=== PATIENT | female | born 1950 | race Caucasian/White ===

== ENCOUNTER → 2016-08-08 | Outpatient (CLI) | payer MEDICARE ==
[2014-11-06 00:59] VITALS: BP 187/79
[~2016-08-08] MED LIST: ACLI400A2 IH; AMLO5TAB2 PO; ARFO15VI IH; CANA300T PO; CHOL400C PO; CHOL400T2 PO; DULA0.75 SQ; FLUT12AE2 IH; FLUT50DI IH; GLIM2TAB2 PO; HALO5TAB PO; LEVO125T5 PO; LEVO88TA2 PO; LIPITOR80 MG PO; LISI10TA2 PO; MELO-150 PO; METF500T4 PO; METO10TA PO; Metoprolol Tartrate PO; OMEP10CA PO; OXYB5TAB7 PO; ROPI0.5T PO; VALA1000 PO; VITA1000 PO
--- NOTE | 2016-08-08 14:00 | KCIC ---
PQRS STATEMENT One or more of the following individualized dose reduction techniques were utilized for this study: 1.Automated exposure control. 2.Adjustment of the mA and/orkVaccording to patient size. 3.Use of iterative reconstruction technique CT ABDOMEN/PELVIS Indication:Reason For Study Reason: RLQ PAIN A FEW MONTHS / Spl. Instructions: / History: Hx hernias, Rt kidney stone, hematuria Technique: Multiple contiguous axial images were obtained through the abdomen and pelvis. Coronal reformations were created. Findings: The heart size is normal. Coronary artery calcifications are noted. The lung bases are clear. Evaluation of the abdominal viscera is limited in the absence of IV contrast.The liver is normal in size. The spleen is either small or partially surgically absent. The presumed splenic remnant measures 4.4 centimeters in size. The gallbladder is surgically absent. The pancreas, and adrenal glands are within normal limits. There is a nonobstructive left inferior pole renal calculus that measures 6 millimeters. There are low-density rounded masses in both kidneys which probably represent cysts. This measures 3.8 centimeters on the left and 3.9 centimeters on the right. There is no abdominopelvic ascites. Abdominal aorta is normal in caliber. The bowel loops are normal in caliber. The appendix is normal. Urinary bladder is within normal limits. No destructive osseus lesions are identified. Impression: - No abdominopelvic ascites or inflammatory mass. - Nonobstructive 6 millimeter calculus in the inferior pole of the left kidney. - Bilateral renal cysts. - The spleen is either atrophic or partially surgically resected. Electronically signed by: Guy Rock (Aug 08, 2016 13:59:40)
== END | disposition home or self-care (01) ==
LOC: KCIC CT 13:05
PROVIDERS: ATTEND Family Medicine
DX: R10.31 Right lower quadrant pain (principal); Z87.442 Personal history of urinary calculi; Z87.448 Personal history of other diseases of urinary system; Z87.19 Personal history of other diseases of the digestive system
CPT/HCPCS: 74176

== ENCOUNTER → 2016-12-01 | Outpatient (CLI) | payer BC, MEDICARE ==
[2014-11-06 00:59] VITALS: BP 187/79
[~2016-12-01] MED LIST changes: -MELO-150 PO; +MELO15TA23 PO
== END | disposition home or self-care (01) ==
LOC: KCIC MAMMO 12:48
PROVIDERS: ATTEND Family Medicine
DX: Z12.31 Encounter for screening mammogram for malignant neoplasm of breast (principal)
CPT/HCPCS: G0202; 77067

== ENCOUNTER 2017-03-09 12:31 | Inpatient (IN) | payer BC ==
[~2017-03-09] VITALS: Ht 167.6 cm; Wt 138.3 kg
[2017-03-09 13:42] LABS: BILIRUBIN,URINE NEGATIVE (NEG); GLUCOSE,URINE NEGATIVE (NEG); NITRITE,URINE NEGATIVE (NEG); PH,URINE 5.5; PROTEIN,URINE NEGATIVE (NEG-TRACE); UROBILINOGEN,URINE 0.2 mg/dL (0.2 mg/dL)
[2017-03-09 13:50] LABS: BACTERIA,URINE 0 /HPF (0-FEW); RBC,URINE TNTC /HPF (0-2); SQUAMOUS EPITHELIAL CELL,UR FEW /LPF; WBC,URINE 0 /HPF (0-4)
[2017-03-09] MEDS ORDERED: fentaNYL PF VIAL 100 MCG/2 ML VIAL IV ONE (14:00)
[2017-03-09] MEDS ORDERED: KETOROLAC 15 MG/ML VIAL. IV ONE (14:00)
[2017-03-09 14:48] LABS: BASO # 0.1 x10^3/uL (0.0-0.2); BASO % 1 % (0-3); EOS % 1 % (0-3); HEMATOCRIT 29.9 % (36.0-47.0); HEMOGLOBIN 9.7 g/dL (12.0-15.5); LYMPH # 1.8 x10^3/uL (1.0-4.8); LYMPH % 20 % (24-48); MEAN CORPUSCULAR HEMOGLOBIN 32 pg (25-35); MEAN CORPUSCULAR HGB CONC 33 g/dL (31-37); MEAN CORPUSCULAR VOLUME 99 fL (79-100); MONO % 13 % (0-9); NEUT % 65 % (31-73); PLATELET COUNT 366 x10^3/uL (140-400); RED BLOOD COUNT 3.02 x10^6/uL (3.50-5.40); RED CELL DISTRIBUTION WIDTH 15.5 % (11.5-14.5); WHITE BLOOD COUNT 9.3 x10^3/uL (4.0-11.0)
[2017-03-09 15:01] LABS: CALCIUM 9.1 mg/dL (8.5-10.1); CREATININE 1.3 mg/dL (0.6-1.0); POTASSIUM 4.5 mmol/L (3.5-5.1)
[2017-03-09 15:08] LABS: ALBUMIN 3.4 g/dL (3.4-5.0); ALBUMIN/GLOBULIN RATIO 0.9 (1.0-1.7); TOTAL BILIRUBIN 0.4 mg/dL (0.2-1.0)
[2017-03-09] MEDS ORDERED: MORPHINE SULFATE 4 MG/ML DISP.SYRIN. IV ONE (15:15)
--- NOTE | 2017-03-09 15:54 | PHYS DOC ---
Past Medical History Past Medical History: Asthma, COPD, Diabetes-Type II, GERD, High Cholesterol, Hypertension, Hypothyroid, Schizophrenia Past Surgical History: Cholecystectomy, Splenectomy, Tonsillectomy, Tubal ligation Additional Past Surgical Histo: Breast Augmentation Alcohol Use: None Drug Use: None Adult General Chief Complaint Chief Complaint: BACK PAIN OR INJURY HPI HPI Patient is a 66 year old female presents with right lower lumbar/sacroiliac pain radiating to right leg. Symptom onset was 5 days ago. Patient denies trauma or strain-like injury. Patient reports weakness of right leg with painful gait. Patient's been able to get around at home with use of cane. Denies numbness of leg. Denies urinary incontinence. Patient took prior to ED arrival with limited improvement. No other acute symptoms or complaints. Review of Systems Review of Systems ROS as per HPI. Current Medications Current Medications Current Medications Medications (Trade) Dose Ordered Sig/Tarah Start Time Stop Time Status Last Admin Dose Admin Fentanyl Citrate (Fentanyl 2ml Vial) 75 mcg 1X ONCE 03/09/17 14:00 03/09/17 14:01 DC 03/09/17 14:13 75 MCG Ketorolac Tromethamine (Toradol) 15 mg 1X ONCE 03/09/17 14:00 03/09/17 14:01 DC 03/09/17 14:13 15 MG Morphine Sulfate 2 mg 1X ONCE 03/09/17 17:15 03/09/17 17:16 DC 03/09/17 17:34 2 MG Allergies Allergies Allergies Coded Allergies Type Severity Reaction Last Updated Verified erythromycin base Allergy Intermediate Hives 11/19/13 No Penicillins Allergy Mild TIRED 11/19/13 Yes Physical Exam Physical Exam Constitutional: Well developed, well nourished, anxious, tearful secondary to pain.. [] HENT: Normocephalic, atraumatic, bilateral external ears normal, oropharynx moist, no oral exudates, nose normal. [] Eyes: PERRLA, EOMI, conjunctiva normal, no discharge. [] Neck: Normal range of motion, no tenderness, supple, no stridor. [] Cardiovascular:Heart rate regular rhythm, no murmur [] Lungs & Thorax: Bilateral breath sounds clear to auscultation [] Abdomen: Bowel sounds normal, soft, no tenderness,. [] Skin: Warm, dry, no erythema, no rash. [] Back: No tenderness, negative evaluation secondary to habitus, diffuse tenderness to right lower lumbar paravertebral region. Positive SLR on the right. [] Extremities: No tenderness, no cyanosis, no clubbing, ROM intact, no edema. [] Neurologic: Alert and oriented X 3, right extremity decreased plantar flexion and dorsiflexion, possibly secondary to pain versus deficit.[] Current Patient Data Vital Signs Vital Signs Date Time Temp Pulse Resp B/P (MAP) Pulse Ox O2 Delivery O2 Flow Rate FiO2 03/09/17 17:34 Nasal Cannula 2.0 03/09/17 12:45 97.8 75 22 112/53 (72) 98 97.8 Lab Values Laboratory Tests Test 03/09/17 13:35 03/09/17 14:35 Urine Collection Type U cath Urine Color Yellow Urine Clarity Clear Urine pH 5.5 Urine Specific [place] 1.015 Urine Protein Negative mg/dL (NEG-TRACE) Urine Glucose (UA) Negative mg/dL (NEG) Urine Ketones (Stick) Negative mg/dL (NEG) Urine Blood Large (NEG) Urine Nitrite Negative (NEG) Urine Bilirubin Negative (NEG) Urine Urobilinogen Dipstick 0.2 mg/dL (0.2 mg/dL) Urine Leukocyte Esterase Negative (NEG) Urine RBC Tntc /HPF (0-2) Urine WBC 0 /HPF (0-4) Urine Squamous Epithelial Cells Few /LPF Urine Bacteria 0 /HPF (0-FEW) Urine Hyaline Casts Many /HPF White Blood Count 9.3 x10^3/uL (4.0-11.0) Red Blood Count 3.02 x10^6/uL (3.50-5.40) L Hemoglobin 9.7 g/dL (12.0-15.5) L Hematocrit 29.9 % (36.0-47.0) L Mean Corpuscular Volume 99 fL (79-100) Mean Corpuscular Hemoglobin 32 pg (25-35) Mean Corpuscular Hemoglobin Concent 33 g/dL (31-37) Red Cell Distribution Width 15.5 % (11.5-14.5) H Platelet Count 366 x10^3/uL (140-400) Neutrophils (%) (Auto) 65 % (31-73) Lymphocytes (%) (Auto) 20 % (24-48) L Monocytes (%) (Auto) 13 % (0-9) H Eosinophils (%) (Auto) 1 % (0-3) Basophils (%) (Auto) 1 % (0-3) Neutrophils # (Auto) 6.1 x10^3uL (1.8-7.7) Lymphocytes # (Auto) 1.8 x10^3/uL (1.0-4.8) Monocytes # (Auto) 1.2 x10^3/uL (0.0-1.1) H Eosinophils # (Auto) 0.1 x10^3/uL (0.0-0.7) Basophils # (Auto) 0.1 x10^3/uL (0.0-0.2) Sodium Level 135 mmol/L (136-145) L Potassium Level 4.5 mmol/L (3.5-5.1) Chloride Level 101 mmol/L (98-107) Carbon Dioxide Level 28 mmol/L (21-32) Anion Gap 6 (6-14) Blood Urea Nitrogen 12 mg/dL (7-20) Creatinine 1.3 mg/dL (0.6-1.0) H Estimated GFR (Cockcroft-Gault) 41.0 BUN/Creatinine Ratio 9 (6-20) Glucose Level 93 mg/dL (70-99) Calcium Level 9.1 mg/dL (8.5-10.1) Total Bilirubin 0.4 mg/dL (0.2-1.0) Aspartate Amino Transferase (AST) 21 U/L (15-37) Alanine Aminotransferase (ALT) 27 U/L (14-59) Alkaline Phosphatase 123 U/L (46-116) H Total Protein 7.0 g/dL (6.4-8.2) Albumin 3.4 g/dL (3.4-5.0) Albumin/Globulin Ratio 0.9 (1.0-1.7) L Laboratory Tests 03/09/17 14:35 Laboratory Tests 03/09/17 14:35 EKG EKG [] Radiology/Procedures Radiology/Procedures [MRI lumbar spine: L4-L5 Disc herniation with protrusion resulting in foraminal stenosis and compression of L5 nerve root per radiology report] Course & Med Decision Making Course & Med Decision Making Pertinent Labs and Imaging studies reviewed. (See chart for details) [Intractable back pain with acute disc rupture and L5 compression. Dr. Burnham on- call for Dr. Meehan to admit. No surgical services consulted. ] Dragon Disclaimer Dragon Disclaimer This electronic medical record was generated, in whole or in part, using a voice recognition dictation system. Departure Departure Impression: Primary Impression: Intractable back pain Additional Impression: Acute herniated disc Disposition: 09 ADMITTED INPATIENT Admitting Physician: Lacho Burnham Condition: STABLE Referrals: Prosper MEEHAN MD (PCP) Problem Qualifiers ELICEO NELSON DO Mar 09, 2017 15:54
--- NOTE | 2017-03-09 17:00 | RAD ---
MRI of the lumbar spine without contrast 03/09/2017 CLINICAL HISTORY: Low back pain with right leg pain. TECHNIQUE: Unenhanced T1-weighted and T2-weighted sagittal and axial and inversion recovery sagittal images of the lumbar spine were obtained. FINDINGS: The patient appears to have transitional vertebral anatomy. For the purposes of this dictation 5 lumbar vertebrae have been assumed. The transitional vertebral segment will be referred to as S1. A hypoplastic disc is seen at S1-2. Very mild S-shaped curvature of the thoracolumbar spine is seen. Degenerative signal changes are seen involving the L2-3, L3-4, L4-5 and L5-S1 discs. Degenerative signal changes are seen within the marrow surrounding these discs. Loss of height of the L4-5 disc is noted. Mild anterolisthesis of L4 in relation to L5 is noted. The conus medullaris is normal morphology, position, and signal characteristics. A 4 cm rounded high signal intensity lesion is seen involving the superior aspect of the left kidney on the T2-weighted images. A 3.7 cm rounded high signal intensity lesion is seen involving the midpole the right kidney on the T2-weighted images. These likely represent cysts. At the L1-2, L2-3 and L3-4 disc spaces there are minimal to mild generalized disc bulges. Degenerative changes are seen involving the facet joints bilaterally. There is mild to moderate ligamentum flavum hypertrophy bilaterally. Prominence of the posterior epidural fat is seen. A 3 mm synovial cyst is seen projecting inferiorly from the right facet joint at L3-4. These findings when combined do not result in significant central spinal canal or neural foraminal stenosis. At the L4-5 disc space there is a mild to moderate generalized disc bulge. Superimposed on this disc bulge is a right paracentral focal disc herniation. This extrudes slightly superiorly. It measures 2.0 x 1.2 x 0.9 cm in craniocaudal, AP and transverse dimensions.. This results in severe right-sided central spinal canal stenosis and appears to impinge upon the right L5 nerve root within the right aspect of the central spinal canal. No neural foraminal stenosis is seen. At the L5-S1 disc space is a mild generalized disc bulge. Degenerative changes are seen involving the facet joints bilaterally. These findings do not result in significant central spinal canal or neural foraminal stenosis. IMPRESSION: The changes of degenerative disc disease are seen throughout the lumbar spine. At the L4-5 disc space a large right paracentral focal disc herniation is seen which extrudes slightly superiorly. It results in severe right-sided central spinal canal stenosis and appears to impinge upon the right L5 nerve root within the right lateral aspect of the central spinal canal as outlined above. Electronically signed by: Matt Garcia MD (03/09/2017 4:56 PM) [id number]
[2017-03-09] MEDS ORDERED: MORPHINE SULFATE 2 MG/ML DISP.SYRIN. IV ONE (17:15)
[2017-03-09] MEDS ORDERED: MORPHINE SULFATE 10 MG/ML VIAL. IV ONE (19:15)
[2017-03-09] MEDS ORDERED: PROAIR HFA8.5 GM INH (19:32)
[2017-03-09] MEDS ORDERED: OXYC1TAB6 PO (19:32)
[2017-03-09] MEDS ORDERED: PIOG15TA42 PO (19:32)
[2017-03-09] MEDS ORDERED: NON FORMULARY ITEM (Albuterol Sulfate (Proair Hfa Inhaler) 1 PUFF) INH PRN (20:30)
[2017-03-09] MEDS ORDERED: oxyCODONE/APAP 5/325 1 TAB TABLET PO PRN (20:45)
[2017-03-09] MEDS ORDERED: ALBUTEROL SULFATE 2.5 MG/3 ML NEBU. NEB PRN (20:45)
[2017-03-09] MEDS ORDERED: NON FORMULARY ITEM (Aclidinium Bromide (Tudorza Pressair) 400 MCG) IH SCH (21:00)
[2017-03-09 21:09] VITALS: BP 115/42
[2017-03-09] MEDS: BUDESONIDE 0.5 MG/2 ML NEBU. NEB SCH (21:10)
[2017-03-09] MEDS: IPRATRPIUM/ALBUTEROL 0.5/2.5MG 3 ML NEBU. NEB SCH (21:10)
[2017-03-09] MEDS: ATORVASTATIN CALCIUM 40 MG TABLET. PO SCH (21:30)
[2017-03-09] MEDS: rOPINIRole 0.25 MG TABLET. PO SCH (21:31)
[2017-03-09] MEDS: NAPROXEN 500 MG TABLET PO SCH (21:31)
[2017-03-09] MEDS: OXYBUTYNIN CHLORIDE 5 MG TABLET PO SCH (21:32)
[2017-03-09] MEDS: HALOPERIDOL 5 MG TABLET. PO SCH (21:33)
[2017-03-09] MEDS: METOPROLOL TART IMMED RELEASE 25 MG TABLET. PO SCH (21:33)
[2017-03-09] MEDS: ENOXAPARIN 40 MG/0.4 ML SYRINGE. SQ SCH (21:35)
[2017-03-09 23:00] VITALS: BP_SYST 104; BP_SYST 114; BP_DIAS 39; BP_DIAS 49
[2017-03-09] MEDS: fentaNYL PF VIAL 100 MCG/2 ML VIAL IV PRN (23:23)
[2017-03-10] VITALS (8 sets, daily range): BP systolic 86–152; BP diastolic 25–94
[2017-03-10] MEDS ORDERED: INFLUENZA VAX SCREEN BY RX. MC ONE
[2017-03-10] MEDS ORDERED: IV NORMAL SALINE 500ML BAG 500 ML IV ONE (04:00)
[2017-03-10] MEDS: IV NORMAL SALINE 1000ML BAG 1,000 ML IV SCH ×3 (04:34→20:46)
[2017-03-10] MEDS: LEVOTHYROXINE 88 MCG TABLET PO SCH (05:57)
[2017-03-10] MEDS: oxyCODONE/APAP 5/325 1 TAB TABLET PO PRN ×3 (05:58→17:40)
[2017-03-10 06:56] LABS: ALBUMIN 3.5 g/dL (3.4-5.0); CALCIUM 9.3 mg/dL (8.5-10.1); CREATININE 1.4 mg/dL (0.6-1.0); GFR 37.6; POTASSIUM 4.5 mmol/L (3.5-5.1); TOTAL BILIRUBIN 0.5 mg/dL (0.2-1.0); TOTAL PROTEIN 7.1 g/dL (6.4-8.2)
[2017-03-10 06:59] LABS: BASO # 0.1 x10^3/uL (0.0-0.2); BASO % 1 % (0-3); EOS % 2 % (0-3); HEMATOCRIT 30.4 % (36.0-47.0); LYMPH # 1.8 x10^3/uL (1.0-4.8); LYMPH % 18 % (24-48); MEAN CORPUSCULAR HEMOGLOBIN 33 pg (25-35); MEAN CORPUSCULAR HGB CONC 33 g/dL (31-37); MEAN CORPUSCULAR VOLUME 99 fL (79-100); MONO % 12 % (0-9); NEUT % 68 % (31-73); PLATELET COUNT 327 x10^3/uL (140-400); RED BLOOD COUNT 3.07 x10^6/uL (3.50-5.40); RED CELL DISTRIBUTION WIDTH 15.6 % (11.5-14.5); WHITE BLOOD COUNT 10.2 x10^3/uL (4.0-11.0)
[2017-03-10 07:17] LABS: INR 1.3 (0.8-1.1); PROTHROMBIN TIME PATIENT 15.1 SEC (11.7-14.0)
[2017-03-10] MEDS: BUDESONIDE 0.5 MG/2 ML NEBU. NEB SCH ×2 (07:38→20:00)
[2017-03-10] MEDS: IPRATRPIUM/ALBUTEROL 0.5/2.5MG 3 ML NEBU. NEB SCH ×4 (07:38→19:59)
[2017-03-10] MEDS: PANTOPRAZOLE 40 MG TABLET.DR. PO SCH (08:41)
[2017-03-10] MEDS: PIOGLITAZONE 15 MG TABLET. PO SCH (08:41)
[2017-03-10] MEDS: NAPROXEN 500 MG TABLET PO SCH ×2 (08:41→17:40)
[2017-03-10] MEDS: OXYBUTYNIN CHLORIDE 5 MG TABLET PO SCH ×2 (08:42→20:33)
[2017-03-10] MEDS: rOPINIRole 0.25 MG TABLET. PO SCH ×2 (08:42→20:33)
[2017-03-10] MEDS: METOPROLOL TART IMMED RELEASE 25 MG TABLET. PO SCH ×2 (08:42→20:46)
[2017-03-10] MEDS: CHOLECALCIFEROL (VITAMIN D3) 1,000 UNIT TABLET PO SCH (08:42)
[2017-03-10] MEDS ORDERED: LISINOPRIL 20 MG TABLET PO SCH (09:00)
[2017-03-10] MEDS ORDERED: FLU VACC QS2017-18 (36MOS+)/PF 0.5 ML SYRINGE. VAX IM ONE (09:00)
--- NOTE | 2017-03-10 11:44 | PDOC ---
Provider Note Provider Note patient seen and examined severe right lumbar radiculopathy with weakness of hip flexor large HNP at L4-5 on the right Based on the size of the HNP and right lower extremity weakness and severity of her pain, I am recommending a microdiscectomy at L4-5 She will need medical clearance ZOILA KINGSLEY MD Mar 10, 2017 11:44
[2017-03-10] MEDS: fentaNYL PF VIAL 100 MCG/2 ML VIAL IV PRN ×3 (14:18→23:01)
--- NOTE | 2017-03-10 15:18 | HP ---
ADMIT DATE: 03/09/2017 CHIEF COMPLAINT: Severe back pain. HISTORY OF PRESENT ILLNESS AND HOSPITAL COURSE: The patient is a 66-year-old female who states that she callejas the wrong way and began having acute pain in her back with radiation down her right lower extremity. The patient's pain was unable to be controlled in the Emergency Room and required large doses of IV narcotic medication. Therefore, she was admitted for further evaluation. The patient has chronic medical issues. PAST MEDICAL HISTORY: 1. Morbid obesity. 2. Hypothyroidism. 3. Type 2 diabetes. 4. Osteoarthritis and spinal stenosis of the L-spine. 5. Reflux esophagitis. 6. Paranoid schizophrenia. 7. Asthma. 8. Aortic stenosis. 9. 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 PAST SURGICAL HISTORY: Significant for: 1. Splenectomy. 2. Cholecystectomy. 3. Hernia repair. 4. Tubal ligation. 5. Partial lobectomy of liver. 6. Pelvic spleen surgery. 7. Breast augmentation. FAMILY HISTORY: Significant for mother with heart disease. SOCIAL HISTORY: The patient is a former smoker, she quit 5-10 years ago, smoked up to 1 pack per day for 40 years. The patient does not use alcohol. She lives with her and son. REVIEW OF SYSTEMS: The patient was in her usual state of health when she began having increasing pain in her back after turning the wrong way less than 48 hours ago. The patient has had some nasal congestion. She denies any fever, productive sputum, nausea, vomiting or diarrhea. The patient denies chest pain or shortness of breath. PHYSICAL EXAMINATION: GENERAL: A morbidly obese female, in moderate distress due to severe back pain. HEENT: Benign. NECK: Supple. CARDIAC: Regular rate and rhythm. A grade 3/6 systolic ejection murmur at the aortic area. LUNGS: Clear. ABDOMEN: Soft and nontender, without masses. EXTREMITIES: 2+ pulses with 2+ pitting edema. NEUROLOGIC: Showed no unilateral findings. ASSESSMENT: 1. Acute disk herniation by MRI to the right. 2. Hypotension with history of hypertension. 3. Anemia. 4. Acute on chronic renal failure. PLAN: To proceed with pain control, PT and OT modalities, consult Neurosurgery for evaluation and possible surgery. Consult Cardiology due to hypotension and for preoperative evaluation. Obtain cardiac echo. ILDA ZAMBRANO MD DR: RAMON/mahesh JOB#: [id number] / [id number]
[2017-03-10] MEDS ORDERED: LIDOCAINE (700MG/PATCH) PATCH. TD PRN (19:30)
[2017-03-10] MEDS ORDERED: FUROSEMIDE 20 MG/2 ML VIAL. IVP ONE (20:15)
[2017-03-10] MEDS ORDERED: LIDOCAINE (700MG/PATCH) PATCH. TD ONE (20:15)
[2017-03-10] MEDS: HALOPERIDOL 5 MG TABLET. PO SCH (20:32)
[2017-03-10] MEDS: ATORVASTATIN CALCIUM 40 MG TABLET. PO SCH (20:34)
[2017-03-10] MEDS: ENOXAPARIN 40 MG/0.4 ML SYRINGE. SQ SCH (20:36)
[2017-03-11] MEDS: oxyCODONE/APAP 5/325 1 TAB TABLET PO PRN ×4 (00:35→18:30)
[2017-03-11 03:00] VITALS: BP 116/23
[2017-03-11] MEDS ORDERED: IV NORMAL SALINE 250ML 250 ML IV ONE (05:00)
[2017-03-11] MEDS: LEVOTHYROXINE 88 MCG TABLET PO SCH (05:37)
[2017-03-11] MEDS: IV NORMAL SALINE 1000ML BAG 1,000 ML IV SCH (05:37)
[2017-03-11] MEDS: PANTOPRAZOLE 40 MG TABLET.DR. PO SCH (05:37)
[2017-03-11 07:00] VITALS: BP 141/54
[2017-03-11] MEDS: METOPROLOL TART IMMED RELEASE 25 MG TABLET. PO SCH ×2 (07:16→20:40)
[2017-03-11] MEDS: IPRATRPIUM/ALBUTEROL 0.5/2.5MG 3 ML NEBU. NEB SCH ×4 (08:24→19:34)
[2017-03-11] MEDS: BUDESONIDE 0.5 MG/2 ML NEBU. NEB SCH ×2 (08:24→19:34)
[2017-03-11] MEDS: NAPROXEN 500 MG TABLET PO SCH ×2 (09:21→18:43)
[2017-03-11] MEDS: PIOGLITAZONE 15 MG TABLET. PO SCH (09:23)
[2017-03-11] MEDS: OXYBUTYNIN CHLORIDE 5 MG TABLET PO SCH ×2 (09:23→20:27)
[2017-03-11] MEDS: rOPINIRole 0.25 MG TABLET. PO SCH ×2 (09:23→20:28)
[2017-03-11] MEDS: CHOLECALCIFEROL (VITAMIN D3) 1,000 UNIT TABLET PO SCH (09:23)
--- NOTE | 2017-03-11 09:36 | PDOC ---
PROGRESS NOTES Subjective Subjective Patient continues to have pain. low BP's noted. leg edema noted. patient c/o urinary frequency. Patient given lasix with good out put but then BP get low. UA neg except for hematuria. Objective Objective Vital Signs Date Time Temp Pulse Resp B/P (MAP) Pulse Ox O2 Delivery O2 Flow Rate FiO2 03/11/17 08:25 93 Room Air 03/11/17 07:16 97 116/23 03/11/17 07:00 97.7 20 97.7 03/11/17 06:51 2.0 Physical Exam Abdomen: Normal bowel sounds Heart: Regular rate Extremities: Other (3+ pitting edema) General: Alert Lungs: Clear to auscultation Assessment Assessment Problems Medical Problems: (1) Acute herniated disc Status: Acute (2) Intractable back pain Status: Acute 1. Acute disk herniation by MRI to the right. 2. Hypotension with history of hypertension. 3. Anemia. 4. Acute on chronic renal failure. 5. urinary frequency 6 hematuria Plan Plan of Care Await cardiac echo Card consult pending Proceed with neuro surgery when medically stable Add Pyridium Add coverage for uti and yeast dermatitis Recheck labs Comment Review of Relevant I have reviewed the following items hitesh (where applicable) has been applied. Labs Laboratory Tests Test 03/09/17 13:35 03/09/17 14:35 03/09/17 21:39 03/10/17 06:04 Urine Collection Type U cath Urine Color Yellow Urine Clarity Clear Urine pH 5.5 Urine Specific [place] 1.015 Urine Protein Negative mg/dL (NEG-TRACE) Urine Glucose (UA) Negative mg/dL (NEG) Urine Ketones (Stick) Negative mg/dL (NEG) Urine Blood Large (NEG) Urine Nitrite Negative (NEG) Urine Bilirubin Negative (NEG) Urine Urobilinogen Dipstick 0.2 mg/dL (0.2 mg/dL) Urine Leukocyte Esterase Negative (NEG) Urine RBC Tntc /HPF (0-2) Urine WBC 0 /HPF (0-4) Urine Squamous Epithelial Cells Few /LPF Urine Bacteria 0 /HPF (0-FEW) Urine Hyaline Casts Many /HPF White Blood Count 9.3 x10^3/uL (4.0-11.0) 10.2 x10^3/uL (4.0-11.0) Red Blood Count 3.02 x10^6/uL (3.50-5.40) 3.07 x10^6/uL (3.50-5.40) Hemoglobin 9.7 g/dL (12.0-15.5) 10.0 g/dL (12.0-15.5) Hematocrit 29.9 % (36.0-47.0) 30.4 % (36.0-47.0) Mean Corpuscular Volume 99 fL (79-100) 99 fL (79-100) Mean Corpuscular Hemoglobin 32 pg (25-35) 33 pg (25-35) Mean Corpuscular Hemoglobin Concent 33 g/dL (31-37) 33 g/dL (31-37) Red Cell Distribution Width 15.5 % (11.5-14.5) 15.6 % (11.5-14.5) Platelet Count 366 x10^3/uL (140-400) 327 x10^3/uL (140-400) Neutrophils (%) (Auto) 65 % (31-73) 68 % (31-73) Lymphocytes (%) (Auto) 20 % (24-48) 18 % (24-48) Monocytes (%) (Auto) 13 % (0-9) 12 % (0-9) Eosinophils (%) (Auto) 1 % (0-3) 2 % (0-3) Basophils (%) (Auto) 1 % (0-3) 1 % (0-3) Neutrophils # (Auto) 6.1 x10^3uL (1.8-7.7) 7.0 x10^3uL (1.8-7.7) Lymphocytes # (Auto) 1.8 x10^3/uL (1.0-4.8) 1.8 x10^3/uL (1.0-4.8) Monocytes # (Auto) 1.2 x10^3/uL (0.0-1.1) 1.2 x10^3/uL (0.0-1.1) Eosinophils # (Auto) 0.1 x10^3/uL (0.0-0.7) 0.2 x10^3/uL (0.0-0.7) Basophils # (Auto) 0.1 x10^3/uL (0.0-0.2) 0.1 x10^3/uL (0.0-0.2) Sodium Level 135 mmol/L (136-145) 132 mmol/L (136-145) Potassium Level 4.5 mmol/L (3.5-5.1) 4.5 mmol/L (3.5-5.1) Chloride Level 101 mmol/L (98-107) 97 mmol/L (98-107) Carbon Dioxide Level 28 mmol/L (21-32) 29 mmol/L (21-32) Anion Gap 6 (6-14) 6 (6-14) Blood Urea Nitrogen 12 mg/dL (7-20) 14 mg/dL (7-20) Creatinine 1.3 mg/dL (0.6-1.0) 1.4 mg/dL (0.6-1.0) Estimated GFR (Cockcroft-Gault) 41.0 37.6 BUN/Creatinine Ratio 9 (6-20) 10 (6-20) Glucose Level 93 mg/dL (70-99) 115 mg/dL (70-99) Calcium Level 9.1 mg/dL (8.5-10.1) 9.3 mg/dL (8.5-10.1) Total Bilirubin 0.4 mg/dL (0.2-1.0) 0.5 mg/dL (0.2-1.0) Aspartate Amino Transf (AST/SGOT) 21 U/L (15-37) 21 U/L (15-37) Alanine Aminotransferase (ALT/SGPT) 27 U/L (14-59) 28 U/L (14-59) Alkaline Phosphatase 123 U/L (46-116) 124 U/L (46-116) Total Protein 7.0 g/dL (6.4-8.2) 7.1 g/dL (6.4-8.2) Albumin 3.4 g/dL (3.4-5.0) 3.5 g/dL (3.4-5.0) Albumin/Globulin Ratio 0.9 (1.0-1.7) 1.0 (1.0-1.7) Glucose (Fingerstick) 161 mg/dL (70-99) Prothrombin Time 15.1 SEC (11.7-14.0) Prothromb Time International Ratio 1.3 (0.8-1.1) Test 03/10/17 07:37 03/10/17 10:53 03/10/17 16:10 03/10/17 20:51 Glucose (Fingerstick) 106 mg/dL (70-99) 130 mg/dL (70-99) 130 mg/dL (70-99) 136 mg/dL (70-99) Test 03/11/17 07:43 Glucose (Fingerstick) 92 mg/dL (70-99) Laboratory Tests Test 03/10/17 10:53 03/10/17 16:10 03/10/17 20:51 03/11/17 07:43 Glucose (Fingerstick) 130 mg/dL (70-99) 130 mg/dL (70-99) 136 mg/dL (70-99) 92 mg/dL (70-99) Medications Current Medications Fentanyl Citrate (Fentanyl 2ml Vial) 75 mcg 1X ONCE IV Last administered on 14:13; Start 03/09/17 at 14:00; Stop 03/09/17 at 14:01; Status DC Ketorolac Tromethamine (Toradol) 15 mg 1X ONCE IV Last administered on 14:13; Start 03/09/17 at 14:00; Stop 03/09/17 at 14:01; Status DC Morphine Sulfate 4 mg 1X ONCE IV Last administered on 03/09/17 15:40; Start 03/09/17 at 15:15; Stop 03/09/17 at 15:16; Status DC Morphine Sulfate 2 mg 1X ONCE IV Last administered on 03/09/17 17:34; Start 03/09/17 at 17:15; Stop 03/09/17 at 17:16; Status DC Morphine Sulfate 5 mg 1X ONCE IV Last administered on 03/09/17 19:23; Start 03/09/17 at 19:15; Stop 03/09/17 at 19:16; Status DC Haloperidol (Haldol) 5 mg HS PO Last administered on 03/10/17 20:32; Start at 21:00 Levothyroxine Sodium (Synthroid) 88 mcg DAILY06 PO Last administered on 05:37; Start 03/10/17 at 06:00 Lisinopril (Prinivil) 20 mg DAILY PO ; Start 03/10/17 at 09:00; Stop 03/10/17 at 11:01; Status DC Oxybutynin Chloride (Ditropan) 2.5 mg BID PO Last administered on 03/11/17 09: 23; Start 03/09/17 at 21:00 Pioglitazone HCl (Actos) 15 mg DAILY PO Last administered on 03/11/17 09:23; Start 03/10/17 at 09:00 Non-Formulary Medication 400 mcg BID IH ; Start 03/09/17 at 21:00; Status UNV Non-Formulary Medication 1 puff PRN Q6HRS PRN INH SHORTNESS OF BREATH; Start at 20:30; Status UNV Vitamin D (Vitamin D3) 500 unit DAILY PO Last administered on 03/11/17 09:23; Start 03/10/17 at 09:00 Oxycodone/ Acetaminophen (Percocet 5/325) 0.5 tab PRN Q6HRS PRN PO PAIN Last administered on 03/09/17 21:33; Start 03/09/17 at 20:45; Stop 03/09/17 at 22:49 ; Status DC Ropinirole HCl (Requip) 0.5 mg BID PO Last administered on 03/11/17 09:23; Start 03/09/17 at 21:00 Metoprolol Tartrate (Lopressor) 12 mg BID PO Last administered on 03/09/17 21: 33; Start 03/09/17 at 21:00 Atorvastatin Calcium (Lipitor) 80 mg QHS PO Last administered on 03/10/17 20: 34; Start 03/09/17 at 21:00 Budesonide (Pulmicort) 0.5 mg RTBID NEB Last administered on 03/11/17 08:24; Start 03/09/17 at 21:00 Naproxen (Naprosyn) 500 mg BIDWMEALS PO Last administered on 03/11/17 09:21; Start 03/09/17 at 21:00 Pantoprazole Sodium (Protonix) 40 mg DAILYAC PO Last administered on 03/11/17 05:37; Start 03/10/17 at 07:30 Enoxaparin Sodium (Lovenox 40mg Syringe) 40 mg Q24H SQ Last administered on 20:36; Start 03/09/17 at 21:00 Albuterol/ Ipratropium (Duoneb) 3 ml RTQID NEB Last administered on 03/11/17 08:24; Start 03/09/17 at 21:00 Albuterol Sulfate (Ventolin Neb Soln) 2.5 mg PRN Q6HRS PRN NEB SHORTNESS OF BREATH; Start 03/09/17 at 20:45 Oxycodone/ Acetaminophen (Percocet 5/325) 1 tab PRN Q6HRS PRN PO PAIN Last administered on 03/11/17 05:37; Start 03/09/17 at 23:00 Fentanyl Citrate (Fentanyl 2ml Vial) 50 mcg PRN Q3HRS PRN IV PAIN Last administered on 03/10/17 23:01; Start 03/09/17 at 23:00 Oxycodone/ Acetaminophen (Percocet 5/325) 2 tab PRN Q6HRS PRN PO PAIN Last administered on 03/10/17 17:40; Start 03/09/17 at 23:00 Info (Do NOT chart on this placeholder) 0.5 each 1X ONCE MC ; Start 03/10/17 at 00:00; Stop 03/10/17 at 00:01; Status UNV Influenza Virus Vaccine Quadrival (Fluarix Quad 1327-2429 Syringe) 0.5 ml ONCE ONCE VAX IM ; Start 03/10/17 at 09:00; Stop 03/10/17 at 09:01; Status DC Sodium Chloride 500 ml @ 500 mls/hr 1X ONCE IV Last administered on 04:33; Start 03/10/17 at 04:00; Stop 03/10/17 at 04:59; Status DC Sodium Chloride 1,000 ml @ 90 mls/hr Q11H7M IV Last administered on 03/11/17 05:37; Start 03/10/17 at 04:00 Lidocaine (Lidoderm) 2 patch PRN DAILY PRN TD TOPICAL PAIN Last administered on 03/10/17 19:34; Start 03/10/17 at 19:30; Stop 03/10/17 at 20:08; Status DC Lidocaine (Lidoderm) 3 patch PRN DAILY PRN TD TOPICAL PAIN; Start 03/10/17 at 20:15 Furosemide (Lasix) 20 mg 1X ONCE IVP Last administered on 03/10/17 20:15; Start 03/10/17 at 20:15; Stop 03/10/17 at 20:25; Status DC Lidocaine (Lidoderm) 1 patch 1X ONCE TD Last administered on 03/10/17 20:32; Start 03/10/17 at 20:15; Stop 03/10/17 at 20:25; Status DC Sodium Chloride 250 ml @ 250 mls/hr 1X ONCE IV Last administered on 05:00; Start 03/11/17 at 05:00; Stop 03/11/17 at 05:59; Status DC Active Scripts Active Synthroid (Levothyroxine Sodium) 88 Mcg Tablet 1 Tab PO DAILY [Metoprolol Tartrate] 25 MG Tablet 12.5 Mg PO BID Reported Oxycodon-Acetaminophen 2.5-325 (Oxycodone Hcl/Acetaminophen) 1 Each Tablet 1 Each PO PRN Q6HRS PRN Proair Hfa Inhaler (Albuterol Sulfate) 8.5 Gm Hfa.aer.ad 1 Puff INH PRN Q6HRS PRN Actos (Pioglitazone Hcl) 15 Mg Tablet 15 Mg PO DAILY Trulicity (Dulaglutide) 0.75 Mg/0.5 Ml Pen.injctr 0.75 Mg SQ Requip (Ropinirole Hcl) 0.5 Mg Tablet 0.5 Mg PO BID Vitamin D3 (Cholecalciferol (Vitamin D3)) 400 Unit Tablet 400 Unit PO DAILY Tudorza Pressair (Aclidinium [place]) 400 Mcg Aer.pow.ba 400 Mcg IH BID Brovana (Arformoterol Tartrate) 15 Mcg/2 Ml Vial.neb 15 Mcg IH Flovent 220MCG Hfa (Fluticasone Propionate) 12 Gm Aer.w.adap 12 Gm IH Vitamin E 1,000 Unit Capsule 1,000 Unit PO Haloperidol 5 Mg Tablet 5 Mg PO Lipitor (Atorvastatin Calcium) 80 Mg Tablet 80 Mg PO Valacyclovir (Valacyclovir Hcl) 1,000 Mg Tablet 1,000 Mg PO Oxybutynin Chloride 5 Mg Tablet 5 Mg PO Lisinopril 10 Mg Tablet 20 Mg PO Meloxicam 15 Mg Tablet 15 Mg PO Prilosec (Omeprazole) 10 Mg Capsule.dr 20 Mg PO Vitals/I & O Vital Sign - Last 24 Hours 03/10/17 03/10/17 03/10/17 03/10/17 11:00 12:19 12:38 14:18 Temp 98.0 98.0 Pulse 81 Resp 22 B/P (MAP) 150/71 (97) Pulse Ox 96 96 O2 Delivery Room Air Room Air Room Air Room Air O2 Flow Rate 2.0 03/10/17 03/10/17 03/10/17 03/10/17 15:20 15:54 17:40 18:40 Temp 97.8 97.8 Pulse 78 Resp 20 16 B/P (MAP) 115/53 (73) Pulse Ox 98 94 O2 Delivery Room Air Room Air Room Air O2 Flow Rate 2.0 03/10/17 03/10/17 03/10/17 03/10/17 19:00 19:43 20:00 20:01 Temp 97.9 97.9 Pulse 103 Resp 16 16 B/P (MAP) 152/94 (113) Pulse Ox 97 98 94 O2 Delivery Nasal Cannula Room Air Room Air Room Air O2 Flow Rate 2.0 2.0 2.0 03/10/17 03/10/17 03/10/17 03/10/17 20:13 20:19 20:46 23:00 Temp 97.7 97.7 Pulse 78 78 91 Resp 18 B/P (MAP) 147/49 (81) 147/49 108/41 (63) Pulse Ox 94 O2 Delivery Room Air O2 Flow Rate 2.0 03/10/17 03/10/17 03/11/17 03/11/17 23:01 23:31 00:35 03:00 Temp 97.5 97.5 Pulse 97 Resp 16 16 16 B/P (MAP) 116/23 (54) Pulse Ox 94 94 94 O2 Delivery Room Air Room Air Room Air Nasal Cannula O2 Flow Rate 2.0 2.0 03/11/17 03/11/17 03/11/17 03/11/17 05:37 06:51 07:00 07:16 Temp 97.7 97.7 Pulse 84 97 Resp 16 16 20 B/P (MAP) 141/54 (83) 116/23 Pulse Ox 94 94 96 O2 Delivery Room Air Nasal Cannula Room Air O2 Flow Rate 2.0 2.0 03/11/17 08:25 Pulse Ox 93 O2 Delivery Room Air ILDA ZAMBRANO MD Mar 11, 2017 09:36
[2017-03-11] MEDS ORDERED: FLUCONAZOLE 100 MG TABLET. PO ONE (10:00)
[2017-03-11] MEDS ORDERED: PHENAZOPYRIDINE 200 MG TABLET. PO PRN (10:00)
[2017-03-11 11:00] VITALS: BP 137/58
[2017-03-11 11:46] LABS: BILIRUBIN,URINE NEGATIVE (NEG); GLUCOSE,URINE NEGATIVE (NEG); NITRITE,URINE NEGATIVE (NEG); PH,URINE 5.5; PROTEIN,URINE NEGATIVE (NEG-TRACE); UROBILINOGEN,URINE 0.2 mg/dL (0.2 mg/dL)
[2017-03-11 11:57] LABS: SQUAMOUS EPITHELIAL CELL,UR MOD /LPF
[2017-03-11 11:58] LABS: BACTERIA,URINE FEW /HPF (0-FEW); RBC,URINE 0 /HPF (0-2)
[2017-03-11] MEDS: fentaNYL PF VIAL 100 MCG/2 ML VIAL IV PRN ×2 (12:13→16:26)
--- NOTE | 2017-03-11 12:20 | CARD ---
APPROVED REPORT EXAM: Two-dimensional and M-mode echocardiogram with Doppler and color Doppler. Other Information Quality : Technically Limited Rhythm : TachycardiaTechnically limited study due to body habitus. INDICATION Pre-Op 2D DIMENSIONS RVDd2.9 (2.9-3.5cm)Left Atrium(2D)3.5 (1.6-4.0cm) IVSd1.0 (0.7-1.1cm)Aortic Root(2D)2.9 (2.0-3.7cm) LVDd5.5 (3.9-5.9cm)LVOT Diameter2.4 (1.8-2.4cm) PWd1.0 (0.7-1.1cm)LVDs3.3 (2.5-4.0cm) FS (%) 40.1 %SV102.0 ml LVEF(%)70.2 (>50%) Aortic Valve AoV Peak Bean.245.2cm/sAoV VTI37.8cm AO Peak GR.24.0mmHgLVOT VTI 26.08cm AO Mean GR.12mmHg Mitral Valve MV E Tjmjpxfz035.0cm/sMV E Peak Gr.6mmHg MV DECEL [id number] A Kntrmdas728.3cm/s MV GWY45ylT/A Ratio0.8 MV A [id number] (PHT)3.14cm2 TDI Lateral E' P. V12.24cm/sMedial E' P. V13.72cm/s E/Lateral E'10.9E/Medial E'9.7 Tricuspid Valve TR P. Uyzrzafu899cm/sRAP [id number] TR Peak Gr.[id number] LEFT VENTRICLE The left ventricle is normal size. There is normal left ventricular wall thickness. Left ventricle sy stolic function is normal. The Ejection Fraction is 65-70%. There is normal LV segmental wall motion. Tissue Doppler imaging reveals mild left ventricular diastolic dysfunction. Transmitral Doppler flow pattern is Grade I-abnormal relaxation pattern. There is no ventricular septal defect visualized. RIGHT VENTRICLE The right ventricle is normal size. The right ventricular systolic function is normal. ATRIA The left atrium size is normal. The right atrium size is normal. The interatrial septum is intact wit h no evidence for an atrial septal defect or patent foramen ovale as noted on 2-D or Doppler imaging. AORTIC VALVE The aortic valve is mildly sclerotic. The aortic valve is trileaflet. Doppler and Color Flow revealed no significant aortic regurgitation. There is no significant aortic valvular stenosis. MITRAL VALVE Mitral annular calcification is mild. The mitral valve leaflets are calcified. There is no mitral julissa ve stenosis. Doppler and Color Flow revealed trace mitral regurgitation. TRICUSPID VALVE The tricuspid valve is not well visualized. Doppler and Color Flow revealed mild to moderate tricuspi d regurgitation. The PA pressure was estimated at 57 mmHg. There is no tricuspid valve stenosis. PULMONIC VALVE The pulmonic valve is not well visualized. Doppler and Color Flow revealed no pulmonic valvular regur gitation. There is no pulmonic valvular stenosis. GREAT VESSELS The aortic root is normal in size. The ascending aorta is normal in size. Pulmonary veins not recorde d. The IVC is dilated and collapses <50% with inspiration. PERICARDIAL EFFUSION There is no evidence of significant pericardial effusion. Critical Notification Critical Value: No <Conclusion> Left ventricle systolic function is normal. The Ejection Fraction is 65-70%. There is normal LV segmental wall motion. Transmitral Doppler flow pattern is Grade I-abnormal relaxation pattern. Trace mitral regurgitation. Mild to moderate tricuspid regurgitation. The PA pressure was estimated at 57 mmHg. There is no evidence of significant pericardial effusion.
--- NOTE | 2017-03-11 12:26 | PDOC2 ---
CONSULT Date of Consult Date of Consult DATE: 03/11/17 TIME: 12:26 Reason for Consult Reason for Consult: Preoperative evaluation Referring Physician Referring Physician: Dr. Burnham Identification/Chief Complaint Chief Complaint Back pain Problems: Source Source: Chart review, Patient History of Present Illness Reason for Visit: 66-year-old female presented with acute and severe low back pain radiating to right lower extremity that started after she 'turned the wrong way'. She was found to have acute disc herniation by MRI and is presently being considered for surgical decompression by neurosurgery team. Cardiology has been consulted for preoperative evaluation. Patient denied any chest pain, orthopnea/PND, palpitations or syncope. She also denied any previous history of coronary artery disease. Past Medical History Cardiovascular: HTN, Hyperlipidemia Pulmonary: Asthma, COPD GI: GERD Musculoskeletal: Osteoarthritis Endocrine: Diabetes, Hypothyroidism Family History Family History: Hypertension Social History ALCOHOL: none Drugs: None Lives: with Family Domestic Violence: Neg Current Problem List Problem List Problems Medical Problems: (1) Acute herniated disc Status: Acute (2) Intractable back pain Status: Acute Current Medications Current Medications Current Medications Fentanyl Citrate (Fentanyl 2ml Vial) 75 mcg 1X ONCE IV Last administered on 14:13; Start 03/09/17 at 14:00; Stop 03/09/17 at 14:01; Status DC Ketorolac Tromethamine (Toradol) 15 mg 1X ONCE IV Last administered on 14:13; Start 03/09/17 at 14:00; Stop 03/09/17 at 14:01; Status DC Morphine Sulfate 4 mg 1X ONCE IV Last administered on 03/09/17 15:40; Start 03/09/17 at 15:15; Stop 03/09/17 at 15:16; Status DC Morphine Sulfate 2 mg 1X ONCE IV Last administered on 03/09/17 17:34; Start 03/09/17 at 17:15; Stop 03/09/17 at 17:16; Status DC Morphine Sulfate 5 mg 1X ONCE IV Last administered on 03/09/17 19:23; Start 03/09/17 at 19:15; Stop 03/09/17 at 19:16; Status DC Haloperidol (Haldol) 5 mg HS PO Last administered on 03/10/17 20:32; Start at 21:00 Levothyroxine Sodium (Synthroid) 88 mcg DAILY06 PO Last administered on 05:37; Start 03/10/17 at 06:00 Lisinopril (Prinivil) 20 mg DAILY PO ; Start 03/10/17 at 09:00; Stop 03/10/17 at 11:01; Status DC Oxybutynin Chloride (Ditropan) 2.5 mg BID PO Last administered on 03/11/17 09: 23; Start 03/09/17 at 21:00 Pioglitazone HCl (Actos) 15 mg DAILY PO Last administered on 03/11/17 09:23; Start 03/10/17 at 09:00 Non-Formulary Medication 400 mcg BID IH ; Start 03/09/17 at 21:00; Status UNV Non-Formulary Medication 1 puff PRN Q6HRS PRN INH SHORTNESS OF BREATH; Start at 20:30; Status UNV Vitamin D (Vitamin D3) 500 unit DAILY PO Last administered on 03/11/17 09:23; Start 03/10/17 at 09:00 Oxycodone/ Acetaminophen (Percocet 5/325) 0.5 tab PRN Q6HRS PRN PO PAIN Last administered on 03/09/17 21:33; Start 03/09/17 at 20:45; Stop 03/09/17 at 22:49 ; Status DC Ropinirole HCl (Requip) 0.5 mg BID PO Last administered on 03/11/17 09:23; Start 03/09/17 at 21:00 Metoprolol Tartrate (Lopressor) 12 mg BID PO Last administered on 03/09/17 21: 33; Start 03/09/17 at 21:00 Atorvastatin Calcium (Lipitor) 80 mg QHS PO Last administered on 03/10/17 20: 34; Start 03/09/17 at 21:00 Budesonide (Pulmicort) 0.5 mg RTBID NEB Last administered on 03/11/17 08:24; Start 03/09/17 at 21:00 Naproxen (Naprosyn) 500 mg BIDWMEALS PO Last administered on 03/11/17 09:21; Start 03/09/17 at 21:00 Pantoprazole Sodium (Protonix) 40 mg DAILYAC PO Last administered on 03/11/17 05:37; Start 03/10/17 at 07:30 Enoxaparin Sodium (Lovenox 40mg Syringe) 40 mg Q24H SQ Last administered on 20:36; Start 03/09/17 at 21:00 Albuterol/ Ipratropium (Duoneb) 3 ml RTQID NEB Last administered on 03/11/17 11:48; Start 03/09/17 at 21:00 Albuterol Sulfate (Ventolin Neb Soln) 2.5 mg PRN Q6HRS PRN NEB SHORTNESS OF BREATH; Start 03/09/17 at 20:45 Oxycodone/ Acetaminophen (Percocet 5/325) 1 tab PRN Q6HRS PRN PO PAIN Last administered on 03/11/17 05:37; Start 03/09/17 at 23:00 Fentanyl Citrate (Fentanyl 2ml Vial) 50 mcg PRN Q3HRS PRN IV PAIN Last administered on 03/11/17 12:13; Start 03/09/17 at 23:00 Oxycodone/ Acetaminophen (Percocet 5/325) 2 tab PRN Q6HRS PRN PO PAIN Last administered on 03/11/17 10:55; Start 03/09/17 at 23:00 Info (Do NOT chart on this placeholder) 0.5 each 1X ONCE MC ; Start 03/10/17 at 00:00; Stop 03/10/17 at 00:01; Status UNV Influenza Virus Vaccine Quadrival (Fluarix Quad [id number] Syringe) 0.5 ml ONCE ONCE VAX IM ; Start 03/10/17 at 09:00; Stop 03/10/17 at 09:01; Status DC Sodium Chloride 500 ml @ 500 mls/hr 1X ONCE IV Last administered on 04:33; Start 03/10/17 at 04:00; Stop 03/10/17 at 04:59; Status DC Sodium Chloride 1,000 ml @ 90 mls/hr Q11H7M IV Last administered on 03/11/17 05:37; Start 03/10/17 at 04:00; Stop 03/11/17 at 09:40; Status DC Lidocaine (Lidoderm) 2 patch PRN DAILY PRN TD TOPICAL PAIN Last administered on 03/10/17 19:34; Start 03/10/17 at 19:30; Stop 03/10/17 at 20:08; Status DC Lidocaine (Lidoderm) 3 patch PRN DAILY PRN TD TOPICAL PAIN; Start 03/10/17 at 20:15 Furosemide (Lasix) 20 mg 1X ONCE IVP Last administered on 03/10/17 20:15; Start 03/10/17 at 20:15; Stop 03/10/17 at 20:25; Status DC Lidocaine (Lidoderm) 1 patch 1X ONCE TD Last administered on 03/10/17 20:32; Start 03/10/17 at 20:15; Stop 03/10/17 at 20:25; Status DC Sodium Chloride 250 ml @ 250 mls/hr 1X ONCE IV Last administered on 05:00; Start 03/11/17 at 05:00; Stop 03/11/17 at 05:59; Status DC Phenazopyridine HCl (Pyridium) 200 mg TID PRN PO URINARY PAIN; Start 03/11/17 at 10:00; Stop 03/13/17 at 09:59 Guaifenesin (Mucinex) 600 mg BID PO Last administered on 03/11/17 10:55; Start 03/11/17 at 10:00 Levofloxacin (Levaquin) 750 mg DAILY06 PO Last administered on 03/11/17 10:54 ; Start 03/11/17 at 10:00 Fluconazole (Diflucan) 150 mg 1X ONCE PO Last administered on 03/11/17 10:54 ; Start 03/11/17 at 10:00; Stop 03/11/17 at 10:01; Status DC Active Scripts Active Synthroid (Levothyroxine Sodium) 88 Mcg Tablet 1 Tab PO DAILY [Metoprolol Tartrate] 25 MG Tablet 12.5 Mg PO BID Reported Oxycodon-Acetaminophen 2.5-325 (Oxycodone Hcl/Acetaminophen) 1 Each Tablet 1 Each PO PRN Q6HRS PRN Proair Hfa Inhaler (Albuterol Sulfate) 8.5 Gm Hfa.aer.ad 1 Puff INH PRN Q6HRS PRN Actos (Pioglitazone Hcl) 15 Mg Tablet 15 Mg PO DAILY Trulicity (Dulaglutide) 0.75 Mg/0.5 Ml Pen.injctr 0.75 Mg SQ Requip (Ropinirole Hcl) 0.5 Mg Tablet 0.5 Mg PO BID Vitamin D3 (Cholecalciferol (Vitamin D3)) 400 Unit Tablet 400 Unit PO DAILY Tudorza Pressair (Aclidinium [place]) 400 Mcg Aer.pow.ba 400 Mcg IH BID Brovana (Arformoterol Tartrate) 15 Mcg/2 Ml Vial.neb 15 Mcg IH Flovent 220MCG Hfa (Fluticasone Propionate) 12 Gm Aer.w.adap 12 Gm IH Vitamin E 1,000 Unit Capsule 1,000 Unit PO Haloperidol 5 Mg Tablet 5 Mg PO Lipitor (Atorvastatin Calcium) 80 Mg Tablet 80 Mg PO Valacyclovir (Valacyclovir Hcl) 1,000 Mg Tablet 1,000 Mg PO Oxybutynin Chloride 5 Mg Tablet 5 Mg PO Lisinopril 10 Mg Tablet 20 Mg PO Meloxicam 15 Mg Tablet 15 Mg PO Prilosec (Omeprazole) 10 Mg Capsule.dr 20 Mg PO Allergies Allergies: Coded Allergies: erythromycin base (Verified Allergy, Intermediate, Hives, 03/10/17) Penicillins (Verified Allergy, Mild, TIRED, 11/19/13) ROS PSYCHOLOGICAL ROS: No: Hallucinations Eyes: No Loss of vision HEENT: No: Epistaxis Respiratory: No: Hemoptysis Cardiovascular: No Chest Pain, No Palpitations Gastrointestinal: No Vomiting, No Diarrhea Musculoskeletal: Yes Other (back pain) Neurological: No Seizures Skin: No Rash Physical Exam General: Alert, Oriented X3 HEENT: Atraumatic, PERRLA Lungs: Clear to auscultation Heart: Regular rate Abdomen: Soft Extremities: No edema Skin: No rashes Psych/Mental Status: Mood NL Vitals VITALS Vital Signs Date Time Temp Pulse Resp B/P (MAP) Pulse Ox O2 Delivery O2 Flow Rate FiO2 03/11/17 12:18 Room Air 03/11/17 11:49 94 03/11/17 11:00 98.0 88 20 137/58 (84) 98.0 03/11/17 06:51 2.0 Labs Labs Laboratory Tests Test 03/09/17 13:35 03/09/17 14:35 03/09/17 21:39 03/10/17 06:04 Urine Collection Type U cath Urine Color Yellow Urine Clarity Clear Urine pH 5.5 Urine Specific [place] 1.015 Urine Protein Negative mg/dL (NEG-TRACE) Urine Glucose (UA) Negative mg/dL (NEG) Urine Ketones (Stick) Negative mg/dL (NEG) Urine Blood Large (NEG) Urine Nitrite Negative (NEG) Urine Bilirubin Negative (NEG) Urine Urobilinogen Dipstick 0.2 mg/dL (0.2 mg/dL) Urine Leukocyte Esterase Negative (NEG) Urine RBC Tntc /HPF (0-2) Urine WBC 0 /HPF (0-4) Urine Squamous Epithelial Cells Few /LPF Urine Bacteria 0 /HPF (0-FEW) Urine Hyaline Casts Many /HPF White Blood Count 9.3 x10^3/uL (4.0-11.0) 10.2 x10^3/uL (4.0-11.0) Red Blood Count 3.02 x10^6/uL (3.50-5.40) 3.07 x10^6/uL (3.50-5.40) Hemoglobin 9.7 g/dL (12.0-15.5) 10.0 g/dL (12.0-15.5) Hematocrit 29.9 % (36.0-47.0) 30.4 % (36.0-47.0) Mean Corpuscular Volume 99 fL (79-100) 99 fL (79-100) Mean Corpuscular Hemoglobin 32 pg (25-35) 33 pg (25-35) Mean Corpuscular Hemoglobin Concent 33 g/dL (31-37) 33 g/dL (31-37) Red Cell Distribution Width 15.5 % (11.5-14.5) 15.6 % (11.5-14.5) Platelet Count 366 x10^3/uL (140-400) 327 x10^3/uL (140-400) Neutrophils (%) (Auto) 65 % (31-73) 68 % (31-73) Lymphocytes (%) (Auto) 20 % (24-48) 18 % (24-48) Monocytes (%) (Auto) 13 % (0-9) 12 % (0-9) Eosinophils (%) (Auto) 1 % (0-3) 2 % (0-3) Basophils (%) (Auto) 1 % (0-3) 1 % (0-3) Neutrophils # (Auto) 6.1 x10^3uL (1.8-7.7) 7.0 x10^3uL (1.8-7.7) Lymphocytes # (Auto) 1.8 x10^3/uL (1.0-4.8) 1.8 x10^3/uL (1.0-4.8) Monocytes # (Auto) 1.2 x10^3/uL (0.0-1.1) 1.2 x10^3/uL (0.0-1.1) Eosinophils # (Auto) 0.1 x10^3/uL (0.0-0.7) 0.2 x10^3/uL (0.0-0.7) Basophils # (Auto) 0.1 x10^3/uL (0.0-0.2) 0.1 x10^3/uL (0.0-0.2) Sodium Level 135 mmol/L (136-145) 132 mmol/L (136-145) Potassium Level 4.5 mmol/L (3.5-5.1) 4.5 mmol/L (3.5-5.1) Chloride Level 101 mmol/L (98-107) 97 mmol/L (98-107) Carbon Dioxide Level 28 mmol/L (21-32) 29 mmol/L (21-32) Anion Gap 6 (6-14) 6 (6-14) Blood Urea Nitrogen 12 mg/dL (7-20) 14 mg/dL (7-20) Creatinine 1.3 mg/dL (0.6-1.0) 1.4 mg/dL (0.6-1.0) Estimated GFR (Cockcroft-Gault) 41.0 37.6 BUN/Creatinine Ratio 9 (6-20) 10 (6-20) Glucose Level 93 mg/dL (70-99) 115 mg/dL (70-99) Calcium Level 9.1 mg/dL (8.5-10.1) 9.3 mg/dL (8.5-10.1) Total Bilirubin 0.4 mg/dL (0.2-1.0) 0.5 mg/dL (0.2-1.0) Aspartate Amino Transf (AST/SGOT) 21 U/L (15-37) 21 U/L (15-37) Alanine Aminotransferase (ALT/SGPT) 27 U/L (14-59) 28 U/L (14-59) Alkaline Phosphatase 123 U/L (46-116) 124 U/L (46-116) Total Protein 7.0 g/dL (6.4-8.2) 7.1 g/dL (6.4-8.2) Albumin 3.4 g/dL (3.4-5.0) 3.5 g/dL (3.4-5.0) Albumin/Globulin Ratio 0.9 (1.0-1.7) 1.0 (1.0-1.7) Glucose (Fingerstick) 161 mg/dL (70-99) Prothrombin Time 15.1 SEC (11.7-14.0) Prothromb Time International Ratio 1.3 (0.8-1.1) Test 03/10/17 07:37 03/10/17 10:53 03/10/17 16:10 03/10/17 20:51 Glucose (Fingerstick) 106 mg/dL (70-99) 130 mg/dL (70-99) 130 mg/dL (70-99) 136 mg/dL (70-99) Test 03/11/17 07:43 03/11/17 11:18 03/11/17 11:30 Glucose (Fingerstick) 92 mg/dL (70-99) 112 mg/dL (70-99) Urine Collection Type Unknown Urine Color Yellow Urine Clarity Clear Urine pH 5.5 Urine Specific [place] <=1.005 Urine Protein Negative mg/dL (NEG-TRACE) Urine Glucose (UA) Negative mg/dL (NEG) Urine Ketones (Stick) Negative mg/dL (NEG) Urine Blood Negative (NEG) Urine Nitrite Negative (NEG) Urine Bilirubin Negative (NEG) Urine Urobilinogen Dipstick 0.2 mg/dL (0.2 mg/dL) Urine Leukocyte Esterase Trace (NEG) Urine RBC 0 /HPF (0-2) Urine WBC 5-10 /HPF (0-4) Urine Squamous Epithelial Cells Mod /LPF Urine Transitional Epithelial Cells Occ /LPF Urine Bacteria Few /HPF (0-FEW) Laboratory Tests Test 03/10/17 16:10 03/10/17 20:51 03/11/17 07:43 03/11/17 11:18 Glucose (Fingerstick) 130 mg/dL (70-99) 136 mg/dL (70-99) 92 mg/dL (70-99) 112 mg/dL (70-99) Test 03/11/17 11:30 Urine Collection Type Unknown Urine Color Yellow Urine Clarity Clear Urine pH 5.5 Urine Specific [place] <=1.005 Urine Protein Negative mg/dL (NEG-TRACE) Urine Glucose (UA) Negative mg/dL (NEG) Urine Ketones (Stick) Negative mg/dL (NEG) Urine Blood Negative (NEG) Urine Nitrite Negative (NEG) Urine Bilirubin Negative (NEG) Urine Urobilinogen Dipstick 0.2 mg/dL (0.2 mg/dL) Urine Leukocyte Esterase Trace (NEG) Urine RBC 0 /HPF (0-2) Urine WBC 5-10 /HPF (0-4) Urine Squamous Epithelial Cells Mod /LPF Urine Transitional Epithelial Cells Occ /LPF Urine Bacteria Few /HPF (0-FEW) Assessment/Plan Assessment/Plan 1. Preoperative evaluation: Patient is presently being considered for surgical decompression for acute disc herniation L4/L5. Neurosurgical team following. Patient does not have any previous history of coronary artery disease and is presently chest pain-free. 2-D echo showed normal LV systolic function without any regional wall motion abnormalities. She is cleared for surgery from cardiac standpoint. 2. Hypotension: Most probably secondary to dehydration. Resolved after holding oral antihypertensives and intravenous hydration. 3. Hypothyroidism: On levo thyroxine 4. Hyperlipidemia: Continue statin therapy 5. Diabetes mellitus type 2: Treat per IM Thank you for your consultation SOBEIDA DE LA CRUZ MD Mar 11, 2017 12:26
--- NOTE | 2017-03-11 13:01 | PDOC ---
PROGRESS NOTES Subjective Subjective up in chair moderately severe right leg pain continues Objective Objective Vital Signs Date Time Temp Pulse Resp B/P (MAP) Pulse Ox O2 Delivery O2 Flow Rate FiO2 03/11/17 12:18 Room Air 03/11/17 11:49 94 03/11/17 11:00 98.0 88 20 137/58 (84) 98.0 03/11/17 06:51 2.0 Intake and Output 03/12/17 07:00 Intake Total 360 ml Balance 360 ml Intake Oral 360 ml Physical Exam MUSCULOSKELETAL: Other (nromal strength in dorsi and plantar felxion, difficult to assess right proximal leg strength due to severe pain with attempted use of right hip flexor) Assessment Assessment Problems Medical Problems: (1) Acute herniated disc Status: Acute (2) Intractable back pain Status: Acute Plan Plan of Care awaiting medical clearance I believe she would benefit from surgery D/W patient Comment Review of Relevant I have reviewed the following items hitesh (where applicable) has been applied. Labs Laboratory Tests Test 03/09/17 13:35 03/09/17 14:35 03/09/17 21:39 03/10/17 06:04 Urine Collection Type U cath Urine Color Yellow Urine Clarity Clear Urine pH 5.5 Urine Specific [place] 1.015 Urine Protein Negative mg/dL (NEG-TRACE) Urine Glucose (UA) Negative mg/dL (NEG) Urine Ketones (Stick) Negative mg/dL (NEG) Urine Blood Large (NEG) Urine Nitrite Negative (NEG) Urine Bilirubin Negative (NEG) Urine Urobilinogen Dipstick 0.2 mg/dL (0.2 mg/dL) Urine Leukocyte Esterase Negative (NEG) Urine RBC Tntc /HPF (0-2) Urine WBC 0 /HPF (0-4) Urine Squamous Epithelial Cells Few /LPF Urine Bacteria 0 /HPF (0-FEW) Urine Hyaline Casts Many /HPF White Blood Count 9.3 x10^3/uL (4.0-11.0) 10.2 x10^3/uL (4.0-11.0) Red Blood Count 3.02 x10^6/uL (3.50-5.40) 3.07 x10^6/uL (3.50-5.40) Hemoglobin 9.7 g/dL (12.0-15.5) 10.0 g/dL (12.0-15.5) Hematocrit 29.9 % (36.0-47.0) 30.4 % (36.0-47.0) Mean Corpuscular Volume 99 fL (79-100) 99 fL (79-100) Mean Corpuscular Hemoglobin 32 pg (25-35) 33 pg (25-35) Mean Corpuscular Hemoglobin Concent 33 g/dL (31-37) 33 g/dL (31-37) Red Cell Distribution Width 15.5 % (11.5-14.5) 15.6 % (11.5-14.5) Platelet Count 366 x10^3/uL (140-400) 327 x10^3/uL (140-400) Neutrophils (%) (Auto) 65 % (31-73) 68 % (31-73) Lymphocytes (%) (Auto) 20 % (24-48) 18 % (24-48) Monocytes (%) (Auto) 13 % (0-9) 12 % (0-9) Eosinophils (%) (Auto) 1 % (0-3) 2 % (0-3) Basophils (%) (Auto) 1 % (0-3) 1 % (0-3) Neutrophils # (Auto) 6.1 x10^3uL (1.8-7.7) 7.0 x10^3uL (1.8-7.7) Lymphocytes # (Auto) 1.8 x10^3/uL (1.0-4.8) 1.8 x10^3/uL (1.0-4.8) Monocytes # (Auto) 1.2 x10^3/uL (0.0-1.1) 1.2 x10^3/uL (0.0-1.1) Eosinophils # (Auto) 0.1 x10^3/uL (0.0-0.7) 0.2 x10^3/uL (0.0-0.7) Basophils # (Auto) 0.1 x10^3/uL (0.0-0.2) 0.1 x10^3/uL (0.0-0.2) Sodium Level 135 mmol/L (136-145) 132 mmol/L (136-145) Potassium Level 4.5 mmol/L (3.5-5.1) 4.5 mmol/L (3.5-5.1) Chloride Level 101 mmol/L (98-107) 97 mmol/L (98-107) Carbon Dioxide Level 28 mmol/L (21-32) 29 mmol/L (21-32) Anion Gap 6 (6-14) 6 (6-14) Blood Urea Nitrogen 12 mg/dL (7-20) 14 mg/dL (7-20) Creatinine 1.3 mg/dL (0.6-1.0) 1.4 mg/dL (0.6-1.0) Estimated GFR (Cockcroft-Gault) 41.0 37.6 BUN/Creatinine Ratio 9 (6-20) 10 (6-20) Glucose Level 93 mg/dL (70-99) 115 mg/dL (70-99) Calcium Level 9.1 mg/dL (8.5-10.1) 9.3 mg/dL (8.5-10.1) Total Bilirubin 0.4 mg/dL (0.2-1.0) 0.5 mg/dL (0.2-1.0) Aspartate Amino Transf (AST/SGOT) 21 U/L (15-37) 21 U/L (15-37) Alanine Aminotransferase (ALT/SGPT) 27 U/L (14-59) 28 U/L (14-59) Alkaline Phosphatase 123 U/L (46-116) 124 U/L (46-116) Total Protein 7.0 g/dL (6.4-8.2) 7.1 g/dL (6.4-8.2) Albumin 3.4 g/dL (3.4-5.0) 3.5 g/dL (3.4-5.0) Albumin/Globulin Ratio 0.9 (1.0-1.7) 1.0 (1.0-1.7) Glucose (Fingerstick) 161 mg/dL (70-99) Prothrombin Time 15.1 SEC (11.7-14.0) Prothromb Time International Ratio 1.3 (0.8-1.1) Test 03/10/17 07:37 03/10/17 10:53 03/10/17 16:10 03/10/17 20:51 Glucose (Fingerstick) 106 mg/dL (70-99) 130 mg/dL (70-99) 130 mg/dL (70-99) 136 mg/dL (70-99) Test 03/11/17 07:43 03/11/17 11:18 03/11/17 11:30 Glucose (Fingerstick) 92 mg/dL (70-99) 112 mg/dL (70-99) Urine Collection Type Unknown Urine Color Yellow Urine Clarity Clear Urine pH 5.5 Urine Specific Crowley <=1.005 Urine Protein Negative mg/dL (NEG-TRACE) Urine Glucose (UA) Negative mg/dL (NEG) Urine Ketones (Stick) Negative mg/dL (NEG) Urine Blood Negative (NEG) Urine Nitrite Negative (NEG) Urine Bilirubin Negative (NEG) Urine Urobilinogen Dipstick 0.2 mg/dL (0.2 mg/dL) Urine Leukocyte Esterase Trace (NEG) Urine RBC 0 /HPF (0-2) Urine WBC 5-10 /HPF (0-4) Urine Squamous Epithelial Cells Mod /LPF Urine Transitional Epithelial Cells Occ /LPF Urine Bacteria Few /HPF (0-FEW) Laboratory Tests Test 03/10/17 16:10 03/10/17 20:51 03/11/17 07:43 03/11/17 11:18 Glucose (Fingerstick) 130 mg/dL (70-99) 136 mg/dL (70-99) 92 mg/dL (70-99) 112 mg/dL (70-99) Test 03/11/17 11:30 Urine Collection Type Unknown Urine Color Yellow Urine Clarity Clear Urine pH 5.5 Urine Specific [place] <=1.005 Urine Protein Negative mg/dL (NEG-TRACE) Urine Glucose (UA) Negative mg/dL (NEG) Urine Ketones (Stick) Negative mg/dL (NEG) Urine Blood Negative (NEG) Urine Nitrite Negative (NEG) Urine Bilirubin Negative (NEG) Urine Urobilinogen Dipstick 0.2 mg/dL (0.2 mg/dL) Urine Leukocyte Esterase Trace (NEG) Urine RBC 0 /HPF (0-2) Urine WBC 5-10 /HPF (0-4) Urine Squamous Epithelial Cells Mod /LPF Urine Transitional Epithelial Cells Occ /LPF Urine Bacteria Few /HPF (0-FEW) Medications Current Medications Fentanyl Citrate (Fentanyl 2ml Vial) 75 mcg 1X ONCE IV Last administered on t 14:13; Start 03/09/17 at 14:00; Stop 03/09/17 at 14:01; Status DC Ketorolac Tromethamine (Toradol) 15 mg 1X ONCE IV Last administered on 14:13; Start 03/09/17 at 14:00; Stop 03/09/17 at 14:01; Status DC Morphine Sulfate 4 mg 1X ONCE IV Last administered on 03/09/17 15:40; Start 03/09/17 at 15:15; Stop 03/09/17 at 15:16; Status DC Morphine Sulfate 2 mg 1X ONCE IV Last administered on 03/09/17 17:34; Start 03/09/17 at 17:15; Stop 03/09/17 at 17:16; Status DC Morphine Sulfate 5 mg 1X ONCE IV Last administered on 03/09/17 19:23; Start 03/09/17 at 19:15; Stop 03/09/17 at 19:16; Status DC Haloperidol (Haldol) 5 mg HS PO Last administered on 03/10/17 20:32; Start at 21:00 Levothyroxine Sodium (Synthroid) 88 mcg DAILY06 PO Last administered on 05:37; Start 03/10/17 at 06:00 Lisinopril (Prinivil) 20 mg DAILY PO ; Start 03/10/17 at 09:00; Stop 03/10/17 at 11:01; Status DC Oxybutynin Chloride (Ditropan) 2.5 mg BID PO Last administered on 03/11/17 09: 23; Start 03/09/17 at 21:00 Pioglitazone HCl (Actos) 15 mg DAILY PO Last administered on 03/11/17 09:23; Start 03/10/17 at 09:00 Non-Formulary Medication 400 mcg BID IH ; Start 03/09/17 at 21:00; Status UNV Non-Formulary Medication 1 puff PRN Q6HRS PRN INH SHORTNESS OF BREATH; Start at 20:30; Status UNV Vitamin D (Vitamin D3) 500 unit DAILY PO Last administered on 03/11/17 09:23; Start 03/10/17 at 09:00 Oxycodone/ Acetaminophen (Percocet 5/325) 0.5 tab PRN Q6HRS PRN PO PAIN Last administered on 03/09/17 21:33; Start 03/09/17 at 20:45; Stop 03/09/17 at 22:49 ; Status DC Ropinirole HCl (Requip) 0.5 mg BID PO Last administered on 03/11/17 09:23; Start 03/09/17 at 21:00 Metoprolol Tartrate (Lopressor) 12 mg BID PO Last administered on 03/09/17 21: 33; Start 03/09/17 at 21:00 Atorvastatin Calcium (Lipitor) 80 mg QHS PO Last administered on 03/10/17 20: 34; Start 03/09/17 at 21:00 Budesonide (Pulmicort) 0.5 mg RTBID NEB Last administered on 03/11/17 08:24; Start 03/09/17 at 21:00 Naproxen (Naprosyn) 500 mg BIDWMEALS PO Last administered on 03/11/17 09:21; Start 03/09/17 at 21:00 Pantoprazole Sodium (Protonix) 40 mg DAILYAC PO Last administered on 03/11/17 05:37; Start 03/10/17 at 07:30 Enoxaparin Sodium (Lovenox 40mg Syringe) 40 mg Q24H SQ Last administered on 20:36; Start 03/09/17 at 21:00 Albuterol/ Ipratropium (Duoneb) 3 ml RTQID NEB Last administered on 03/11/17 11:48; Start 03/09/17 at 21:00 Albuterol Sulfate (Ventolin Neb Soln) 2.5 mg PRN Q6HRS PRN NEB SHORTNESS OF BREATH; Start 03/09/17 at 20:45 Oxycodone/ Acetaminophen (Percocet 5/325) 1 tab PRN Q6HRS PRN PO PAIN Last administered on 03/11/17 05:37; Start 03/09/17 at 23:00 Fentanyl Citrate (Fentanyl 2ml Vial) 50 mcg PRN Q3HRS PRN IV PAIN Last administered on 03/11/17 12:13; Start 03/09/17 at 23:00 Oxycodone/ Acetaminophen (Percocet 5/325) 2 tab PRN Q6HRS PRN PO PAIN Last administered on 03/11/17 10:55; Start 03/09/17 at 23:00 Info (Do NOT chart on this placeholder) 0.5 each 1X ONCE MC ; Start 03/10/17 at 00:00; Stop 03/10/17 at 00:01; Status UNV Influenza Virus Vaccine Quadrival (Fluarix Quad 0538-2058 Syringe) 0.5 ml ONCE ONCE VAX IM ; Start 03/10/17 at 09:00; Stop 03/10/17 at 09:01; Status DC Sodium Chloride 500 ml @ 500 mls/hr 1X ONCE IV Last administered on 04:33; Start 03/10/17 at 04:00; Stop 03/10/17 at 04:59; Status DC Sodium Chloride 1,000 ml @ 90 mls/hr Q11H7M IV Last administered on 03/11/17 05:37; Start 03/10/17 at 04:00; Stop 03/11/17 at 09:40; Status DC Lidocaine (Lidoderm) 2 patch PRN DAILY PRN TD TOPICAL PAIN Last administered on 03/10/17 19:34; Start 03/10/17 at 19:30; Stop 03/10/17 at 20:08; Status DC Lidocaine (Lidoderm) 3 patch PRN DAILY PRN TD TOPICAL PAIN; Start 03/10/17 at 20:15 Furosemide (Lasix) 20 mg 1X ONCE IVP Last administered on 03/10/17 20:15; Start 03/10/17 at 20:15; Stop 03/10/17 at 20:25; Status DC Lidocaine (Lidoderm) 1 patch 1X ONCE TD Last administered on 03/10/17 20:32; Start 03/10/17 at 20:15; Stop 03/10/17 at 20:25; Status DC Sodium Chloride 250 ml @ 250 mls/hr 1X ONCE IV Last administered on 05:00; Start 03/11/17 at 05:00; Stop 03/11/17 at 05:59; Status DC Phenazopyridine HCl (Pyridium) 200 mg TID PRN PO URINARY PAIN; Start 03/11/17 at 10:00; Stop 03/13/17 at 09:59 Guaifenesin (Mucinex) 600 mg BID PO Last administered on 03/11/17 10:55; Start 03/11/17 at 10:00 Levofloxacin (Levaquin) 750 mg DAILY06 PO Last administered on 03/11/17 10:54 ; Start 03/11/17 at 10:00 Fluconazole (Diflucan) 150 mg 1X ONCE PO Last administered on 03/11/17 10:54 ; Start 03/11/17 at 10:00; Stop 03/11/17 at 10:01; Status DC Active Scripts Active Synthroid (Levothyroxine Sodium) 88 Mcg Tablet 1 Tab PO DAILY [Metoprolol Tartrate] 25 MG Tablet 12.5 Mg PO BID Reported Oxycodon-Acetaminophen 2.5-325 (Oxycodone Hcl/Acetaminophen) 1 Each Tablet 1 Each PO PRN Q6HRS PRN Proair Hfa Inhaler (Albuterol Sulfate) 8.5 Gm Hfa.aer.ad 1 Puff INH PRN Q6HRS PRN Actos (Pioglitazone Hcl) 15 Mg Tablet 15 Mg PO DAILY Trulicity (Dulaglutide) 0.75 Mg/0.5 Ml Pen.injctr 0.75 Mg SQ Requip (Ropinirole Hcl) 0.5 Mg Tablet 0.5 Mg PO BID Vitamin D3 (Cholecalciferol (Vitamin D3)) 400 Unit Tablet 400 Unit PO DAILY Tudorza Pressair (Aclidinium [place]) 400 Mcg Aer.pow.ba 400 Mcg IH BID Brovana (Arformoterol Tartrate) 15 Mcg/2 Ml Vial.neb 15 Mcg IH Flovent 220MCG Hfa (Fluticasone Propionate) 12 Gm Aer.w.adap 12 Gm IH Vitamin E 1,000 Unit Capsule 1,000 Unit PO Haloperidol 5 Mg Tablet 5 Mg PO Lipitor (Atorvastatin Calcium) 80 Mg Tablet 80 Mg PO Valacyclovir (Valacyclovir Hcl) 1,000 Mg Tablet 1,000 Mg PO Oxybutynin Chloride 5 Mg Tablet 5 Mg PO Lisinopril 10 Mg Tablet 20 Mg PO Meloxicam 15 Mg Tablet 15 Mg PO Prilosec (Omeprazole) 10 Mg Capsule.dr 20 Mg PO Vitals/I & O Vital Sign - Last 24 Hours 03/10/17 03/10/17 03/10/17 03/10/17 14:18 15:20 15:54 17:40 Temp 97.8 97.8 Pulse 78 Resp 20 B/P (MAP) 115/53 (73) Pulse Ox 98 O2 Delivery Room Air Room Air Room Air 03/10/17 03/10/17 03/10/17 03/10/17 18:40 19:00 19:43 20:00 Temp 97.9 97.9 Pulse 103 Resp 16 16 16 B/P (MAP) 152/94 (113) Pulse Ox 94 97 98 O2 Delivery Nasal Cannula Room Air Room Air O2 Flow Rate 2.0 2.0 2.0 2.0 03/10/17 03/10/17 03/10/17 03/10/17 20:01 20:13 20:19 20:46 Pulse 78 78 B/P (MAP) 147/49 (81) 147/49 Pulse Ox 94 O2 Delivery Room Air O2 Flow Rate 2.0 03/10/17 03/10/17 03/10/17 03/11/17 23:00 23:01 23:31 00:35 Temp 97.7 97.7 Pulse 91 Resp 18 16 16 16 B/P (MAP) 108/41 (63) Pulse Ox 94 94 94 94 O2 Delivery Room Air Room Air Room Air Room Air O2 Flow Rate 2.0 03/11/17 03/11/17 03/11/17 03/11/17 03:00 05:37 06:51 07:00 Temp 97.5 97.7 97.5 97.7 Pulse 97 84 Resp 16 16 20 B/P (MAP) 116/23 (54) 141/54 (83) Pulse Ox 94 94 96 O2 Delivery Nasal Cannula Room Air Nasal Cannula Room Air O2 Flow Rate 2.0 2.0 2.0 03/11/17 03/11/17 03/11/17 03/11/17 07:16 08:15 08:25 10:55 Pulse 97 B/P (MAP) 116/23 Pulse Ox 93 O2 Delivery Room Air Room Air Room Air 03/11/17 03/11/17 03/11/17 03/11/17 11:00 11:49 12:13 12:18 Temp 98.0 98.0 Pulse 88 Resp 20 B/P (MAP) 137/58 (84) Pulse Ox 99 94 O2 Delivery Room Air Room Air Room Air Room Air Intake and Output 03/11/17 03/11/17 03/12/17 15:00 23:00 07:00 Intake Total 360 ml Balance 360 ml ZOILA KINGSLEY MD Mar 11, 2017 13:01
[2017-03-11 15:00] VITALS: BP 134/55
[2017-03-11 19:00] VITALS: BP 137/59
[2017-03-11] MEDS: ATORVASTATIN CALCIUM 40 MG TABLET. PO SCH (20:27)
[2017-03-11] MEDS: HALOPERIDOL 5 MG TABLET. PO SCH (20:27)
[2017-03-11] MEDS: ENOXAPARIN 40 MG/0.4 ML SYRINGE. SQ SCH (20:29)
[2017-03-11] MEDS: LIDOCAINE (700MG/PATCH) PATCH. TD PRN (20:30)
[2017-03-11 23:00] VITALS: BP 149/39
[2017-03-12] MEDS: oxyCODONE/APAP 5/325 1 TAB TABLET PO PRN ×3 (00:09→16:30)
[2017-03-12] MEDS: fentaNYL PF VIAL 100 MCG/2 ML VIAL IV PRN ×6 (01:38→22:47)
[2017-03-12 03:00] VITALS: BP 149/55
[2017-03-12] MEDS: LEVOTHYROXINE 88 MCG TABLET PO SCH (05:20)
[2017-03-12] MEDS: PANTOPRAZOLE 40 MG TABLET.DR. PO SCH (05:20)
[2017-03-12 07:00] VITALS: BP 132/49
[2017-03-12 07:05] LABS: BASO % 0 % (0-3); EOS % 2 % (0-3); HEMATOCRIT 28.8 % (36.0-47.0); HEMOGLOBIN 9.7 g/dL (12.0-15.5); LYMPH # 2.2 x10^3/uL (1.0-4.8); LYMPH % 19 % (24-48); MEAN CORPUSCULAR HEMOGLOBIN 32 pg (25-35); MEAN CORPUSCULAR HGB CONC 34 g/dL (31-37); MEAN CORPUSCULAR VOLUME 97 fL (79-100); MONO % 11 % (0-9); NEUT % 68 % (31-73); PLATELET COUNT 378 x10^3/uL (140-400); RED BLOOD COUNT 2.99 x10^6/uL (3.50-5.40); RED CELL DISTRIBUTION WIDTH 15.3 % (11.5-14.5); WHITE BLOOD COUNT 11.3 x10^3/uL (4.0-11.0)
[2017-03-12] MEDS: IPRATRPIUM/ALBUTEROL 0.5/2.5MG 3 ML NEBU. NEB SCH ×4 (07:16→20:00)
[2017-03-12] MEDS: BUDESONIDE 0.5 MG/2 ML NEBU. NEB SCH ×2 (07:17→20:00)
[2017-03-12 07:22] LABS: CALCIUM 9.6 mg/dL (8.5-10.1); CREATININE 1.1 mg/dL (0.6-1.0); GFR 49.7; POTASSIUM 4.5 mmol/L (3.5-5.1)
[2017-03-12] MEDS: CHOLECALCIFEROL (VITAMIN D3) 1,000 UNIT TABLET PO SCH (08:32)
[2017-03-12] MEDS: OXYBUTYNIN CHLORIDE 5 MG TABLET PO SCH ×2 (08:32→20:37)
[2017-03-12] MEDS: rOPINIRole 0.25 MG TABLET. PO SCH ×2 (08:32→20:37)
[2017-03-12] MEDS: NAPROXEN 500 MG TABLET PO SCH ×2 (08:33→17:54)
[2017-03-12] MEDS: METOPROLOL TART IMMED RELEASE 25 MG TABLET. PO SCH ×2 (08:34→20:38)
[2017-03-12] MEDS: PIOGLITAZONE 15 MG TABLET. PO SCH (08:34)
[2017-03-12 11:00] VITALS: BP 135/44
[2017-03-12] MEDS: ENOXAPARIN 40 MG/0.4 ML SYRINGE. SQ SCH ×2 (14:28→20:48)
[2017-03-12 15:04] VITALS: BP 105/51
--- NOTE | 2017-03-12 18:48 | PDOC ---
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
[2017-03-12 19:00] VITALS: BP 127/42
[2017-03-12] MEDS: HALOPERIDOL 5 MG TABLET. PO SCH (20:37)
[2017-03-12] MEDS: ATORVASTATIN CALCIUM 40 MG TABLET. PO SCH (20:37)
[2017-03-12] MEDS: LIDOCAINE (700MG/PATCH) PATCH. TD PRN (20:54)
[2017-03-12 23:00] VITALS: BP 114/59
[2017-03-13] MEDS: oxyCODONE/APAP 5/325 1 TAB TABLET PO PRN ×3 (00:31→23:43)
[2017-03-13 01:49] VITALS: BP 134/43
[2017-03-13] MEDS: fentaNYL PF VIAL 100 MCG/2 ML VIAL IV PRN ×5 (03:22→19:51)
[2017-03-13] MEDS: LEVOTHYROXINE 88 MCG TABLET PO SCH (05:45)
[2017-03-13 07:00] VITALS: BP 125/51
[2017-03-13] MEDS: BUDESONIDE 0.5 MG/2 ML NEBU. NEB SCH ×2 (07:14→19:12)
[2017-03-13] MEDS: IPRATRPIUM/ALBUTEROL 0.5/2.5MG 3 ML NEBU. NEB SCH ×4 (07:14→19:12)
[2017-03-13] MEDS: PANTOPRAZOLE 40 MG TABLET.DR. PO SCH ×2 (07:30→08:59)
[2017-03-13] MEDS: ENOXAPARIN 40 MG/0.4 ML SYRINGE. SQ SCH ×2 (08:49→21:31)
[2017-03-13] MEDS: rOPINIRole 0.25 MG TABLET. PO SCH ×2 (08:59→21:24)
[2017-03-13] MEDS: CHOLECALCIFEROL (VITAMIN D3) 1,000 UNIT TABLET PO SCH (08:59)
[2017-03-13] MEDS: OXYBUTYNIN CHLORIDE 5 MG TABLET PO SCH ×2 (08:59→21:24)
[2017-03-13] MEDS ORDERED: FUROSEMIDE 20 MG/2 ML VIAL. IVP ONE (09:00)
[2017-03-13] MEDS: NAPROXEN 500 MG TABLET PO SCH ×2 (09:00→16:21)
[2017-03-13] MEDS: PIOGLITAZONE 15 MG TABLET. PO SCH (09:00)
[2017-03-13] MEDS: METOPROLOL TART IMMED RELEASE 25 MG TABLET. PO SCH ×2 (09:00→21:28)
--- NOTE | 2017-03-13 09:02 | PDOC ---
PROGRESS NOTES Subjective Constipated, waiting on pain meds, legs swollen, sugars controlled, no chest pain, no SOA, slept in chair last night Objective Afebrile BP: [] General: [] Heart: [] Lungs: [] Abd: [] Ext: [] WBC: [] Hgb: [] K+: [] Creat: [] Vital Signs Vital Signs Date Time Temp Pulse Resp B/P (MAP) Pulse Ox O2 Delivery O2 Flow Rate FiO2 03/13/17 07:48 Nasal Cannula 3.0 03/13/17 07:16 97 03/13/17 07:00 97.8 79 18 125/51 (75) 97.8 Assessment and Plan Problems Medical Problems: (1) Acute herniated disc Status: Acute (2) Intractable back pain Status: Acute Problems: Prosper MEEHAN MD Mar 13, 2017 09:02
[2017-03-13] MEDS: POLYETHYLENE GLYCOL 3350 17 GM PACKET. PO SCH (09:14)
--- NOTE | 2017-03-13 10:04 | PDOC ---
PROGRESS NOTES Subjective Subjective up in chair continues with back and right leg pain Objective Objective Vital Signs Date Time Temp Pulse Resp B/P (MAP) Pulse Ox O2 Delivery O2 Flow Rate FiO2 03/13/17 09:42 Nasal Cannula 2.0 03/13/17 09:00 79 125/57 03/13/17 07:16 97 03/13/17 07:00 97.8 18 97.8 Physical Exam General: Alert, Oriented X3, Cooperative MUSCULOSKELETAL: Other (JOHNSON) Neuro: Normal speech Assessment Assessment Problems Medical Problems: (1) Acute herniated disc Status: Acute (2) Intractable back pain Status: Acute Plan Plan of Care cleared for surgery scheduled for microdiscectomy tomorrow reviewed surgery and all questions answered Comment Review of Relevant I have reviewed the following items hitesh (where applicable) has been applied. Labs Laboratory Tests Test 03/11/17 11:18 03/11/17 11:30 03/11/17 16:59 03/11/17 20:38 Glucose (Fingerstick) 112 mg/dL (70-99) 110 mg/dL (70-99) 127 mg/dL (70-99) Urine Collection Type Unknown Urine Color Yellow Urine Clarity Clear Urine pH 5.5 Urine Specific [place] <=1.005 Urine Protein Negative mg/dL (NEG-TRACE) Urine Glucose (UA) Negative mg/dL (NEG) Urine Ketones (Stick) Negative mg/dL (NEG) Urine Blood Negative (NEG) Urine Nitrite Negative (NEG) Urine Bilirubin Negative (NEG) Urine Urobilinogen Dipstick 0.2 mg/dL (0.2 mg/dL) Urine Leukocyte Esterase Trace (NEG) Urine RBC 0 /HPF (0-2) Urine WBC 5-10 /HPF (0-4) Urine Squamous Epithelial Cells Mod /LPF Urine Transitional Epithelial Cells Occ /LPF Urine Bacteria Few /HPF (0-FEW) Test 03/12/17 06:00 03/12/17 08:02 03/12/17 10:52 03/12/17 16:44 White Blood Count 11.3 x10^3/uL (4.0-11.0) Red Blood Count 2.99 x10^6/uL (3.50-5.40) Hemoglobin 9.7 g/dL (12.0-15.5) Hematocrit 28.8 % (36.0-47.0) Mean Corpuscular Volume 97 fL (79-100) Mean Corpuscular Hemoglobin 32 pg (25-35) Mean Corpuscular Hemoglobin Concent 34 g/dL (31-37) Red Cell Distribution Width 15.3 % (11.5-14.5) Platelet Count 378 x10^3/uL (140-400) Neutrophils (%) (Auto) 68 % (31-73) Lymphocytes (%) (Auto) 19 % (24-48) Monocytes (%) (Auto) 11 % (0-9) Eosinophils (%) (Auto) 2 % (0-3) Basophils (%) (Auto) 0 % (0-3) Neutrophils # (Auto) 7.7 x10^3uL (1.8-7.7) Lymphocytes # (Auto) 2.2 x10^3/uL (1.0-4.8) Monocytes # (Auto) 1.2 x10^3/uL (0.0-1.1) Eosinophils # (Auto) 0.2 x10^3/uL (0.0-0.7) Basophils # (Auto) 0.0 x10^3/uL (0.0-0.2) Sodium Level 127 mmol/L (136-145) Potassium Level 4.5 mmol/L (3.5-5.1) Chloride Level 93 mmol/L (98-107) Carbon Dioxide Level 25 mmol/L (21-32) Anion Gap 9 (6-14) Blood Urea Nitrogen 13 mg/dL (7-20) Creatinine 1.1 mg/dL (0.6-1.0) Estimated GFR (Cockcroft-Gault) 49.7 Glucose Level 84 mg/dL (70-99) Calcium Level 9.6 mg/dL (8.5-10.1) Glucose (Fingerstick) 83 mg/dL (70-99) 134 mg/dL (70-99) 109 mg/dL (70-99) Test 03/12/17 21:51 03/13/17 07:50 Glucose (Fingerstick) 144 mg/dL (70-99) 88 mg/dL (70-99) Laboratory Tests Test 03/12/17 10:52 03/12/17 16:44 03/12/17 21:51 03/13/17 07:50 Glucose (Fingerstick) 134 mg/dL (70-99) 109 mg/dL (70-99) 144 mg/dL (70-99) 88 mg/dL (70-99) Microbiology 03/11/17 Urine Culture - Preliminary, Resulted 03/11/17 Urine Culture Result 1 (ADELAIDA) - Preliminary, Resulted Medications Current Medications Fentanyl Citrate (Fentanyl 2ml Vial) 75 mcg 1X ONCE IV Last administered on 14:13; Start 03/09/17 at 14:00; Stop 03/09/17 at 14:01; Status DC Ketorolac Tromethamine (Toradol) 15 mg 1X ONCE IV Last administered on 14:13; Start 03/09/17 at 14:00; Stop 03/09/17 at 14:01; Status DC Morphine Sulfate 4 mg 1X ONCE IV Last administered on 03/09/17 15:40; Start 03/09/17 at 15:15; Stop 03/09/17 at 15:16; Status DC Morphine Sulfate 2 mg 1X ONCE IV Last administered on 03/09/17 17:34; Start 03/09/17 at 17:15; Stop 03/09/17 at 17:16; Status DC Morphine Sulfate 5 mg 1X ONCE IV Last administered on 03/09/17 19:23; Start 03/09/17 at 19:15; Stop 03/09/17 at 19:16; Status DC Haloperidol (Haldol) 5 mg HS PO Last administered on 03/12/17 20:37; Start at 21:00 Levothyroxine Sodium (Synthroid) 88 mcg DAILY06 PO Last administered on 05:45; Start 03/10/17 at 06:00 Lisinopril (Prinivil) 20 mg DAILY PO ; Start 03/10/17 at 09:00; Stop 03/10/17 at 11:01; Status DC Oxybutynin Chloride (Ditropan) 2.5 mg BID PO Last administered on 03/13/17 08: 59; Start 03/09/17 at 21:00 Pioglitazone HCl (Actos) 15 mg DAILY PO Last administered on 03/13/17 09:00; Start 03/10/17 at 09:00 Non-Formulary Medication 400 mcg BID IH ; Start 03/09/17 at 21:00; Status UNV Non-Formulary Medication 1 puff PRN Q6HRS PRN INH SHORTNESS OF BREATH; Start at 20:30; Status UNV Vitamin D (Vitamin D3) 500 unit DAILY PO Last administered on 03/13/17 08:59; Start 03/10/17 at 09:00 Oxycodone/ Acetaminophen (Percocet 5/325) 0.5 tab PRN Q6HRS PRN PO PAIN Last administered on 03/09/17 21:33; Start 03/09/17 at 20:45; Stop 03/09/17 at 22:49 ; Status DC Ropinirole HCl (Requip) 0.5 mg BID PO Last administered on 03/13/17 08:59; Start 03/09/17 at 21:00 Metoprolol Tartrate (Lopressor) 12 mg BID PO Last administered on 03/12/17 08: 34; Start 03/09/17 at 21:00; Stop 03/12/17 at 11:37; Status DC Atorvastatin Calcium (Lipitor) 80 mg QHS PO Last administered on 03/12/17 20: 37; Start 03/09/17 at 21:00 Budesonide (Pulmicort) 0.5 mg RTBID NEB Last administered on 03/13/17 07:14; Start 03/09/17 at 21:00 Naproxen (Naprosyn) 500 mg BIDWMEALS PO Last administered on 03/13/17 09:00; Start 03/09/17 at 21:00 Pantoprazole Sodium (Protonix) 40 mg DAILYAC PO Last administered on 03/13/17 08:59; Start 03/10/17 at 07:30 Enoxaparin Sodium (Lovenox 40mg Syringe) 40 mg Q24H SQ Last administered on 20:29; Start 03/09/17 at 21:00; Stop 03/12/17 at 10:11; Status DC Albuterol/ Ipratropium (Duoneb) 3 ml RTQID NEB Last administered on 03/13/17 07:14; Start 03/09/17 at 21:00 Albuterol Sulfate (Ventolin Neb Soln) 2.5 mg PRN Q6HRS PRN NEB SHORTNESS OF BREATH; Start 03/09/17 at 20:45 Oxycodone/ Acetaminophen (Percocet 5/325) 1 tab PRN Q6HRS PRN PO PAIN Last administered on 03/13/17 06:34; Start 03/09/17 at 23:00 Fentanyl Citrate (Fentanyl 2ml Vial) 50 mcg PRN Q3HRS PRN IV PAIN Last administered on 03/13/17 09:07; Start 03/09/17 at 23:00 Oxycodone/ Acetaminophen (Percocet 5/325) 2 tab PRN Q6HRS PRN PO PAIN Last administered on 03/13/17 00:31; Start 03/09/17 at 23:00 Info (Do NOT chart on this placeholder) 0.5 each 1X ONCE MC ; Start 03/10/17 at 00:00; Stop 03/10/17 at 00:01; Status UNV Influenza Virus Vaccine Quadrival (Fluarix Quad [id number] Syringe) 0.5 ml ONCE ONCE VAX IM Last administered on 03/12/17 14:29; Start 03/10/17 at 09:00; Stop 03/10/17 at 09:01; Status DC Sodium Chloride 500 ml @ 500 mls/hr 1X ONCE IV Last administered on 04:33; Start 03/10/17 at 04:00; Stop 03/10/17 at 04:59; Status DC Sodium Chloride 1,000 ml @ 90 mls/hr Q11H7M IV Last administered on 03/11/17 05:37; Start 03/10/17 at 04:00; Stop 03/11/17 at 09:40; Status DC Lidocaine (Lidoderm) 2 patch PRN DAILY PRN TD TOPICAL PAIN Last administered on 03/10/17 19:34; Start 03/10/17 at 19:30; Stop 03/10/17 at 20:08; Status DC Lidocaine (Lidoderm) 3 patch PRN DAILY PRN TD TOPICAL PAIN Last administered on 03/12/17 20:54; Start 03/10/17 at 20:15 Furosemide (Lasix) 20 mg 1X ONCE IVP Last administered on 03/10/17 20:15; Start 03/10/17 at 20:15; Stop 03/10/17 at 20:25; Status DC Lidocaine (Lidoderm) 1 patch 1X ONCE TD Last administered on 03/10/17 20:32; Start 03/10/17 at 20:15; Stop 03/10/17 at 20:25; Status DC Sodium Chloride 250 ml @ 250 mls/hr 1X ONCE IV Last administered on 05:00; Start 03/11/17 at 05:00; Stop 03/11/17 at 05:59; Status DC Phenazopyridine HCl (Pyridium) 200 mg TID PRN PO URINARY PAIN Last administered on 03/11/17 20:29; Start 03/11/17 at 10:00; Stop 03/13/17 at 09:59 ; Status DC Guaifenesin (Mucinex) 600 mg BID PO Last administered on 03/13/17 09:00; Start 03/11/17 at 10:00 Levofloxacin (Levaquin) 750 mg DAILY06 PO Last administered on 03/12/17 05:20 ; Start 03/11/17 at 10:00; Stop 03/12/17 at 11:35; Status DC Fluconazole (Diflucan) 150 mg 1X ONCE PO Last administered on 03/11/17 10:54 ; Start 03/11/17 at 10:00; Stop 03/11/17 at 10:01; Status DC Enoxaparin Sodium (Lovenox 40mg Syringe) 40 mg Q12HR SQ Last administered on 20:48; Start 03/12/17 at 12:00 Levofloxacin (Levaquin) 250 mg DAILY06 PO Last administered on 03/13/17 05:45 ; Start 03/13/17 at 06:00 Metoprolol Tartrate (Lopressor) 12.5 mg BID PO Last administered on 03/13/17 09:00; Start 03/12/17 at 21:00 Polyethylene Glycol (miraLAX PACKET) 17 gm DAILY PO Last administered on 09:14; Start 03/13/17 at 09:00 Furosemide (Lasix) 20 mg 1X ONCE IVP Last administered on 03/13/17 09:14; Start 03/13/17 at 09:00; Stop 03/13/17 at 09:01; Status DC Bacitracin 99626 unit/Sodium Chloride 1,000 ml @ 1,000 mls/hr 1X PERIOP ONCE IRR ; Start 03/14/17 at 06:00; Stop 03/14/17 at 06:59 Active Scripts Active Synthroid (Levothyroxine Sodium) 88 Mcg Tablet 1 Tab PO DAILY [Metoprolol Tartrate] 25 MG Tablet 12.5 Mg PO BID Reported Oxycodon-Acetaminophen 2.5-325 (Oxycodone Hcl/Acetaminophen) 1 Each Tablet 1 Each PO PRN Q6HRS PRN Proair Hfa Inhaler (Albuterol Sulfate) 8.5 Gm Hfa.aer.ad 1 Puff INH PRN Q6HRS PRN Actos (Pioglitazone Hcl) 15 Mg Tablet 15 Mg PO DAILY Trulicity (Dulaglutide) 0.75 Mg/0.5 Ml Pen.injctr 0.75 Mg SQ Requip (Ropinirole Hcl) 0.5 Mg Tablet 0.5 Mg PO BID Vitamin D3 (Cholecalciferol (Vitamin D3)) 400 Unit Tablet 400 Unit PO DAILY Tudorza Pressair (Aclidinium [place]) 400 Mcg Aer.pow.ba 400 Mcg IH BID Brovana (Arformoterol Tartrate) 15 Mcg/2 Ml Vial.neb 15 Mcg IH Flovent 220MCG Hfa (Fluticasone Propionate) 12 Gm Aer.w.adap 12 Gm IH Vitamin E 1,000 Unit Capsule 1,000 Unit PO Haloperidol 5 Mg Tablet 5 Mg PO Lipitor (Atorvastatin Calcium) 80 Mg Tablet 80 Mg PO Valacyclovir (Valacyclovir Hcl) 1,000 Mg Tablet 1,000 Mg PO Oxybutynin Chloride 5 Mg Tablet 5 Mg PO Lisinopril 10 Mg Tablet 20 Mg PO Meloxicam 15 Mg Tablet 15 Mg PO Prilosec (Omeprazole) 10 Mg Capsule.dr 20 Mg PO Vitals/I & O Vital Sign - Last 24 Hours 03/12/17 03/12/17 03/12/17 03/12/17 10:29 11:00 11:20 14:05 Temp 97.9 97.9 Pulse 83 Resp 18 B/P (MAP) 135/44 (74) Pulse Ox 96 O2 Delivery Nasal Cannula Room Air Nasal Cannula Nasal Cannula O2 Flow Rate 2.0 3.0 2.0 03/12/17 03/12/17 03/12/17 03/12/17 15:04 15:22 16:30 16:40 Temp 97.5 97.5 Pulse 74 Resp 18 B/P (MAP) 105/51 (69) Pulse Ox 97 97 O2 Delivery Room Air Nasal Cannula Nasal Cannula O2 Flow Rate 3.0 2.0 03/12/17 03/12/17 03/12/17 03/12/17 17:55 19:00 19:18 20:00 Temp 97.7 97.7 Pulse 84 Resp 20 B/P (MAP) 127/42 (70) Pulse Ox 98 95 97 O2 Delivery Nasal Cannula Nasal Cannula Nasal Cannula Nasal Cannula O2 Flow Rate 2.0 3.0 2.0 3.0 03/12/17 03/12/17 03/12/17 03/12/17 20:00 20:38 22:47 23:00 Temp 97.6 97.6 Pulse 84 76 Resp 20 B/P (MAP) 127/42 114/59 (77) Pulse Ox 96 O2 Delivery Nasal Cannula Nasal Cannula Nasal Cannula O2 Flow Rate 2.0 3.0 3.0 03/13/17 03/13/17 03/13/17 03/13/17 00:31 01:49 03:22 06:34 Pulse 78 Resp 18 20 20 20 B/P (MAP) 134/43 (73) Pulse Ox 95 O2 Delivery Nasal Cannula Nasal Cannula Nasal Cannula Nasal Cannula O2 Flow Rate 3.0 3.0 3.0 3.0 03/13/17 03/13/17 03/13/17 03/13/17 07:00 07:16 07:47 07:48 Temp 97.8 97.8 Pulse 79 Resp 18 B/P (MAP) 125/51 (75) Pulse Ox 94 97 O2 Delivery Nasal Cannula Nasal Cannula Nasal Cannula Nasal Cannula O2 Flow Rate 3.0 3.0 3.0 3.0 03/13/17 03/13/17 03/13/17 09:00 09:07 09:42 Pulse 79 B/P (MAP) 125/57 O2 Delivery Nasal Cannula Nasal Cannula O2 Flow Rate 2.0 2.0 GUILLERMO SANCHEZ APRN Mar 13, 2017 10:04
[2017-03-13 11:00] VITALS: BP 124/47
[2017-03-13 15:00] VITALS: BP 116/53
[2017-03-13 19:00] VITALS: BP 125/40
[2017-03-13] MEDS: ATORVASTATIN CALCIUM 40 MG TABLET. PO SCH (21:24)
[2017-03-13] MEDS: HALOPERIDOL 5 MG TABLET. PO SCH (21:24)
[2017-03-13 23:00] VITALS: BP 159/57
[2017-03-14] VITALS (7 sets, daily range): BP systolic 108–139; BP diastolic 30–69
[2017-03-14] MEDS: fentaNYL PF VIAL 100 MCG/2 ML VIAL IV PRN ×7 (02:10→23:03)
[2017-03-14 05:26] LABS: HEMATOCRIT 28.9 % (36.0-47.0); HEMOGLOBIN 9.7 g/dL (12.0-15.5); RED BLOOD COUNT 2.99 x10^6/uL (3.50-5.40); RED CELL DISTRIBUTION WIDTH 15.2 % (11.5-14.5)
[2017-03-14 05:49] LABS: CALCIUM 9.7 mg/dL (8.5-10.1); CREATININE 1.2 mg/dL (0.6-1.0); GFR 44.9; POTASSIUM 4.5 mmol/L (3.5-5.1)
[2017-03-14] MEDS ORDERED: BACITRACIN 50,000 UNIT in IV NORMAL SALINE 1000ML BAG 1,000 ML IRR ONE (06:00)
[2017-03-14] MEDS: oxyCODONE/APAP 5/325 1 TAB TABLET PO PRN ×2 (06:32→21:32)
[2017-03-14] MEDS ORDERED: LIDOCAINE 1% PF 2 ML VIAL. ID PRN (07:00)
[2017-03-14] MEDS ORDERED: MORPHINE SULFATE 4 MG/ML DISP.SYRIN. IV PRN (07:00)
[2017-03-14] MEDS ORDERED: IV RINGERS,LACTATED 1000ML 1,000 ML IV SCH (07:00)
[2017-03-14] MEDS ORDERED: PROCHLORPERAZINE 10 MG/2 ML VIAL. IV PRN (07:00)
[2017-03-14] MEDS ORDERED: fentaNYL PF VIAL 100 MCG/2 ML VIAL IV PRN (07:00)
[2017-03-14] MEDS: BUDESONIDE 0.5 MG/2 ML NEBU. NEB SCH ×2 (07:07→19:34)
[2017-03-14] MEDS: IPRATRPIUM/ALBUTEROL 0.5/2.5MG 3 ML NEBU. NEB SCH ×4 (07:07→19:34)
[2017-03-14] MEDS: LEVOTHYROXINE 88 MCG TABLET PO SCH (08:38)
[2017-03-14] MEDS: PIOGLITAZONE 15 MG TABLET. PO SCH (08:39)
[2017-03-14] MEDS: METOPROLOL TART IMMED RELEASE 25 MG TABLET. PO SCH ×2 (08:39→21:21)
[2017-03-14] MEDS: NAPROXEN 500 MG TABLET PO SCH ×2 (08:39→17:00)
[2017-03-14] MEDS: OXYBUTYNIN CHLORIDE 5 MG TABLET PO SCH ×2 (08:40→21:22)
[2017-03-14] MEDS: rOPINIRole 0.25 MG TABLET. PO SCH ×2 (08:41→21:21)
[2017-03-14] MEDS: ENOXAPARIN 40 MG/0.4 ML SYRINGE. SQ SCH ×2 (08:43→21:23)
[2017-03-14] MEDS: POLYETHYLENE GLYCOL 3350 17 GM PACKET. PO SCH (08:44)
[2017-03-14] MEDS: CHOLECALCIFEROL (VITAMIN D3) 1,000 UNIT TABLET PO SCH (08:44)
[2017-03-14] MEDS ORDERED: THROMBIN TOPICAL 20,000 UNIT SPRAY.SYRN KIT TP ONE (09:05)
[2017-03-14] MEDS ORDERED: BUPIVACAINE-EPI 0.25%-1:200000 MPF 30 ML VIAL. ONE (09:05)
[2017-03-14] MEDS ORDERED: GELATIN SPONGE SIZE 100. ONE (09:05)
[2017-03-14] MEDS ORDERED: KETOROLAC 60 MG/2 ML INJ FOR OR. ONE (09:05)
[2017-03-14] MEDS ORDERED: REMIFENTANIL 2 MG VIAL. IV ONE ×2 (09:45→13:59)
[2017-03-14] MEDS ORDERED: MIDAZOLAM HCL/PF 2 MG/2 ML VIAL. ONE (09:45)
[2017-03-14] MEDS ORDERED: SUCCINYLCHOLINE 200 MG/10 ML VIAL. ONE (09:47)
[2017-03-14] MEDS ORDERED: ONDANSETRON PF 4 MG/2 ML VIAL. ONE (09:48)
[2017-03-14] MEDS ORDERED: PROPOFOL 50 ML IV ONE (09:48)
[2017-03-14] MEDS ORDERED: PHENYLEPHRINE 10 MG/ML VIAL. ONE (09:48)
[2017-03-14] MEDS ORDERED: LIDOCAINE 2% PF Vial for OR 5 ML VIAL. ONE (09:48)
[2017-03-14] MEDS ORDERED: DEXAMETHASONE SOD PHOS 20 MG/5 ML VIAL. ONE (09:48)
[2017-03-14] MEDS ORDERED: ISOFLURANE > 120 MINUTES. IH ONE (09:48)
[2017-03-14] MEDS ORDERED: PROPOFOL 20 ML IV ONE (09:48)
[2017-03-14] MEDS ORDERED: GLYCOPYRROLATE 1 MG/5 ML VIAL. ONE (09:48)
[2017-03-14] MEDS ORDERED: VANCOMYCIN 1GM IVPB FOR OMNI. ONE (12:26)
[2017-03-14] MEDS ORDERED: 0.9 % SODIUM CHLORIDE 50 ML VIAL. IJ ONE (13:59)
[2017-03-14] MEDS ORDERED: DESFLURANE > 120 MINUTES IH ONE (14:30)
[2017-03-14] MEDS ORDERED: PROPOFOL 100 ML IV ONE (14:44)
[2017-03-14] MEDS: HYDROmorphone 2 MG/ML VIAL IV PRN ×2 (16:27→16:37)
--- NOTE | 2017-03-14 17:15 | PDOC ---
PROGRESS NOTES Subjective Post op, anxious about having urinary retention, has yeast rash of pannus and groin Objective Afebrile General: awake, alert, anxious Heart: RRR Lungs: CTAB Abd: obese, soft Ext: moving feet skin: yeast in skin folds Vital Signs Vital Signs Date Time Temp Pulse Resp B/P (MAP) Pulse Ox O2 Delivery O2 Flow Rate FiO2 03/14/17 16:40 97.8 82 16 145/73 95 Nasal Cannula 2 97.8 Assessment and Plan Problems Medical Problems: (1) Acute herniated disc - s/p discectomy. At risk for urinary retention but has yeast panniculitis, vaginitis. Bladder scan, sawyer if needed, dd tamsulosin and nystatin Status: Acute (2) Intractable back pain Status: Acute Problems: Prosper MEEHAN MD Mar 14, 2017 17:15
[2017-03-14] MEDS: ATORVASTATIN CALCIUM 40 MG TABLET. PO SCH (21:20)
[2017-03-14] MEDS: TAMSULOSIN 0.4 MG CAP.ER.24H. PO SCH (21:22)
[2017-03-14] MEDS: HALOPERIDOL 5 MG TABLET. PO SCH (21:22)
[2017-03-14] MEDS: NYSTATIN 100,000 UNIT/GM TOPICAL CREAM 15GM TUBE. TP SCH (21:24)
[2017-03-15] MEDS: fentaNYL PF VIAL 100 MCG/2 ML VIAL IV PRN ×6 (02:44→21:08)
[2017-03-15 03:20] VITALS: BP 154/69
[2017-03-15] MEDS: oxyCODONE/APAP 5/325 1 TAB TABLET PO PRN ×3 (04:11→19:59)
[2017-03-15] MEDS: LEVOTHYROXINE 88 MCG TABLET PO SCH (05:57)
[2017-03-15 07:00] VITALS: BP 133/52
[2017-03-15] MEDS: BUDESONIDE 0.5 MG/2 ML NEBU. NEB SCH ×2 (07:54→19:35)
[2017-03-15] MEDS: IPRATRPIUM/ALBUTEROL 0.5/2.5MG 3 ML NEBU. NEB SCH ×4 (07:54→19:35)
[2017-03-15] MEDS: NYSTATIN 100,000 UNIT/GM TOPICAL CREAM 15GM TUBE. TP SCH ×2 (09:00→21:05)
[2017-03-15] MEDS: NAPROXEN 500 MG TABLET PO SCH (09:03)
[2017-03-15] MEDS: CHOLECALCIFEROL (VITAMIN D3) 1,000 UNIT TABLET PO SCH (09:05)
[2017-03-15] MEDS: PANTOPRAZOLE 40 MG TABLET.DR. PO SCH (09:06)
[2017-03-15] MEDS: POLYETHYLENE GLYCOL 3350 17 GM PACKET. PO SCH (09:06)
[2017-03-15] MEDS: rOPINIRole 0.25 MG TABLET. PO SCH ×2 (09:06→21:07)
[2017-03-15] MEDS: PIOGLITAZONE 15 MG TABLET. PO SCH (09:07)
[2017-03-15] MEDS: OXYBUTYNIN CHLORIDE 5 MG TABLET PO SCH ×2 (09:07→21:05)
[2017-03-15] MEDS: METOPROLOL TART IMMED RELEASE 25 MG TABLET. PO SCH ×2 (09:08→21:00)
[2017-03-15] MEDS: ENOXAPARIN 40 MG/0.4 ML SYRINGE. SQ SCH ×2 (09:09→21:06)
--- NOTE | 2017-03-15 09:58 | PDOC ---
PROGRESS NOTES Subjective Subjective up in chair POD #1 /p microdiscectomy L4-5 right leg pain improved but still pain when she stands Objective Objective Vital Signs Date Time Temp Pulse Resp B/P (MAP) Pulse Ox O2 Delivery O2 Flow Rate FiO2 03/15/17 09:09 16 Nasal Cannula 2.0 03/15/17 09:08 74 154/69 03/15/17 07:56 94 03/15/17 07:00 98.1 98.1 Physical Exam General: Alert, Oriented X3, Cooperative, No acute distress MUSCULOSKELETAL: Other (JOHNSON) Skin: Other (dressing changed, jean marie intact, dry, flat) Assessment Assessment Problems Medical Problems: (1) Acute herniated disc Status: Acute (2) Intractable back pain Status: Acute Plan Plan of Care encouraged increased activity as tolerated PT Consult Dr. Aguilar for rehab eval Comment Review of Relevant I have reviewed the following items hitesh (where applicable) has been applied. Labs Laboratory Tests Test 03/13/17 11:13 03/13/17 16:37 03/13/17 20:30 03/14/17 04:00 Glucose (Fingerstick) 139 mg/dL (70-99) 158 mg/dL (70-99) 157 mg/dL (70-99) White Blood Count 12.0 x10^3/uL (4.0-11.0) Red Blood Count 2.99 x10^6/uL (3.50-5.40) Hemoglobin 9.7 g/dL (12.0-15.5) Hematocrit 28.9 % (36.0-47.0) Mean Corpuscular Volume 97 fL (79-100) Mean Corpuscular Hemoglobin 32 pg (25-35) Mean Corpuscular Hemoglobin Concent 34 g/dL (31-37) Red Cell Distribution Width 15.2 % (11.5-14.5) Platelet Count 383 x10^3/uL (140-400) Sodium Level 129 mmol/L (136-145) Potassium Level 4.5 mmol/L (3.5-5.1) Chloride Level 92 mmol/L (98-107) Carbon Dioxide Level 29 mmol/L (21-32) Anion Gap 8 (6-14) Blood Urea Nitrogen 18 mg/dL (7-20) Creatinine 1.2 mg/dL (0.6-1.0) Estimated GFR (Cockcroft-Gault) 44.9 Glucose Level 83 mg/dL (70-99) Calcium Level 9.7 mg/dL (8.5-10.1) Test 03/14/17 07:14 03/14/17 12:12 03/14/17 16:32 03/14/17 20:51 Glucose (Fingerstick) 100 mg/dL (70-99) 87 mg/dL (70-99) 109 mg/dL (70-99) 176 mg/dL (70-99) Test 03/15/17 07:51 Glucose (Fingerstick) 157 mg/dL (70-99) Laboratory Tests Test 03/14/17 12:12 03/14/17 16:32 03/14/17 20:51 03/15/17 07:51 Glucose (Fingerstick) 87 mg/dL (70-99) 109 mg/dL (70-99) 176 mg/dL (70-99) 157 mg/dL (70-99) Microbiology 03/11/17 Urine Culture - Final, Complete 03/11/17 Urine Culture Result 1 (ADELAIDA) - Final, Complete Medications Current Medications Fentanyl Citrate (Fentanyl 2ml Vial) 75 mcg 1X ONCE IV Last administered on 14:13; Start 03/09/17 at 14:00; Stop 03/09/17 at 14:01; Status DC Ketorolac Tromethamine (Toradol) 15 mg 1X ONCE IV Last administered on 14:13; Start 03/09/17 at 14:00; Stop 03/09/17 at 14:01; Status DC Morphine Sulfate 4 mg 1X ONCE IV Last administered on 03/09/17 15:40; Start 03/09/17 at 15:15; Stop 03/09/17 at 15:16; Status DC Morphine Sulfate 2 mg 1X ONCE IV Last administered on 03/09/17 17:34; Start 03/09/17 at 17:15; Stop 03/09/17 at 17:16; Status DC Morphine Sulfate 5 mg 1X ONCE IV Last administered on 03/09/17 19:23; Start 03/09/17 at 19:15; Stop 03/09/17 at 19:16; Status DC Haloperidol (Haldol) 5 mg HS PO Last administered on 03/14/17 21:22; Start at 21:00 Levothyroxine Sodium (Synthroid) 88 mcg DAILY06 PO Last administered on 05:57; Start 03/10/17 at 06:00 Lisinopril (Prinivil) 20 mg DAILY PO ; Start 03/10/17 at 09:00; Stop 03/10/17 at 11:01; Status DC Oxybutynin Chloride (Ditropan) 2.5 mg BID PO Last administered on 03/15/17 09: 07; Start 03/09/17 at 21:00 Pioglitazone HCl (Actos) 15 mg DAILY PO Last administered on 03/15/17 09:07; Start 03/10/17 at 09:00 Non-Formulary Medication 400 mcg BID IH ; Start 03/09/17 at 21:00; Status UNV Non-Formulary Medication 1 puff PRN Q6HRS PRN INH SHORTNESS OF BREATH; Start at 20:30; Status UNV Vitamin D (Vitamin D3) 500 unit DAILY PO Last administered on 03/15/17 09:05; Start 03/10/17 at 09:00 Oxycodone/ Acetaminophen (Percocet 5/325) 0.5 tab PRN Q6HRS PRN PO PAIN Last administered on 03/09/17 21:33; Start 03/09/17 at 20:45; Stop 03/09/17 at 22:49 ; Status DC Ropinirole HCl (Requip) 0.5 mg BID PO Last administered on 03/15/17 09:06; Start 03/09/17 at 21:00 Metoprolol Tartrate (Lopressor) 12 mg BID PO Last administered on 03/12/17 08: 34; Start 03/09/17 at 21:00; Stop 03/12/17 at 11:37; Status DC Atorvastatin Calcium (Lipitor) 80 mg QHS PO Last administered on 03/14/17 21: 20; Start 03/09/17 at 21:00 Budesonide (Pulmicort) 0.5 mg RTBID NEB Last administered on 03/15/17 07:54; Start 03/09/17 at 21:00 Naproxen (Naprosyn) 500 mg BIDWMEALS PO Last administered on 03/15/17 09:03; Start 03/09/17 at 21:00 Pantoprazole Sodium (Protonix) 40 mg DAILYAC PO Last administered on 03/15/17 09:06; Start 03/10/17 at 07:30 Enoxaparin Sodium (Lovenox 40mg Syringe) 40 mg Q24H SQ Last administered on 20:29; Start 03/09/17 at 21:00; Stop 03/12/17 at 10:11; Status DC Albuterol/ Ipratropium (Duoneb) 3 ml RTQID NEB Last administered on 03/15/17 07:54; Start 03/09/17 at 21:00 Albuterol Sulfate (Ventolin Neb Soln) 2.5 mg PRN Q6HRS PRN NEB SHORTNESS OF BREATH; Start 03/09/17 at 20:45 Oxycodone/ Acetaminophen (Percocet 5/325) 1 tab PRN Q6HRS PRN PO PAIN Last administered on 03/15/17 04:11; Start 03/09/17 at 23:00 Fentanyl Citrate (Fentanyl 2ml Vial) 50 mcg PRN Q3HRS PRN IV PAIN Last administered on 03/15/17 09:09; Start 03/09/17 at 23:00 Oxycodone/ Acetaminophen (Percocet 5/325) 2 tab PRN Q6HRS PRN PO PAIN Last administered on 03/14/17 06:32; Start 03/09/17 at 23:00 Info (Do NOT chart on this placeholder) 0.5 each 1X ONCE MC ; Start 03/10/17 at 00:00; Stop 03/10/17 at 00:01; Status UNV Influenza Virus Vaccine Quadrival (Fluarix Quad [id number] Syringe) 0.5 ml ONCE ONCE VAX IM Last administered on 03/12/17 14:29; Start 03/10/17 at 09:00; Stop 03/10/17 at 09:01; Status DC Sodium Chloride 500 ml @ 500 mls/hr 1X ONCE IV Last administered on 04:33; Start 03/10/17 at 04:00; Stop 03/10/17 at 04:59; Status DC Sodium Chloride 1,000 ml @ 90 mls/hr Q11H7M IV Last administered on 03/11/17 05:37; Start 03/10/17 at 04:00; Stop 03/11/17 at 09:40; Status DC Lidocaine (Lidoderm) 2 patch PRN DAILY PRN TD TOPICAL PAIN Last administered on 03/10/17 19:34; Start 03/10/17 at 19:30; Stop 03/10/17 at 20:08; Status DC Lidocaine (Lidoderm) 3 patch PRN DAILY PRN TD TOPICAL PAIN Last administered on 03/12/17 20:54; Start 03/10/17 at 20:15 Furosemide (Lasix) 20 mg 1X ONCE IVP Last administered on 03/10/17 20:15; Start 03/10/17 at 20:15; Stop 03/10/17 at 20:25; Status DC Lidocaine (Lidoderm) 1 patch 1X ONCE TD Last administered on 03/10/17 20:32; Start 03/10/17 at 20:15; Stop 03/10/17 at 20:25; Status DC Sodium Chloride 250 ml @ 250 mls/hr 1X ONCE IV Last administered on 05:00; Start 03/11/17 at 05:00; Stop 03/11/17 at 05:59; Status DC Phenazopyridine HCl (Pyridium) 200 mg TID PRN PO URINARY PAIN Last administered on 03/11/17 20:29; Start 03/11/17 at 10:00; Stop 03/13/17 at 09:59 ; Status DC Guaifenesin (Mucinex) 600 mg BID PO Last administered on 03/15/17 09:06; Start 03/11/17 at 10:00 Levofloxacin (Levaquin) 750 mg DAILY06 PO Last administered on 03/12/17 05:20 ; Start 03/11/17 at 10:00; Stop 03/12/17 at 11:35; Status DC Fluconazole (Diflucan) 150 mg 1X ONCE PO Last administered on 03/11/17 10:54 ; Start 03/11/17 at 10:00; Stop 03/11/17 at 10:01; Status DC Enoxaparin Sodium (Lovenox 40mg Syringe) 40 mg Q12HR SQ Last administered on 09:09; Start 03/12/17 at 12:00 Levofloxacin (Levaquin) 250 mg DAILY06 PO Last administered on 03/15/17 05:57 ; Start 03/13/17 at 06:00 Metoprolol Tartrate (Lopressor) 12.5 mg BID PO Last administered on 03/15/17 09:08; Start 03/12/17 at 21:00 Polyethylene Glycol (miraLAX PACKET) 17 gm DAILY PO Last administered on 09:06; Start 03/13/17 at 09:00 Furosemide (Lasix) 20 mg 1X ONCE IVP Last administered on 03/13/17 09:14; Start 03/13/17 at 09:00; Stop 03/13/17 at 09:01; Status DC Bacitracin 60960 unit/Sodium Chloride 1,000 ml @ 1,000 mls/hr 1X PERIOP ONCE IRR Last administered on 03/14/17 13:27; Start 03/14/17 at 06:00; Stop at 06:59; Status DC Fentanyl Citrate (Fentanyl 2ml Vial) 25 mcg PRN Q5MIN PRN IV MILD PAIN; Start 03/14/17 at 07:00; Stop 03/15/17 at 06:59; Status DC Fentanyl Citrate (Fentanyl 2ml Vial) 50 mcg PRN Q5MIN PRN IV MODERATE PAIN Last administered on 03/14/17 16:11; Start 03/14/17 at 07:00; Stop 03/15/17 at 06:59; Status DC Morphine Sulfate 1 mg PRN Q10MIN PRN IV SEVERE PAIN; Start 03/14/17 at 07:00; Stop 03/15/17 at 06:59; Status DC Ringer's Solution 1,000 ml @ 30 mls/hr Q24H IV Last administered on 03/14/17 12:09; Start 03/14/17 at 07:00; Stop 03/14/17 at 18:59; Status DC Lidocaine HCl (Xylocaine-Mpf 1% Vial) 2 ml PRN 1X PRN ID IV START; Start at 07:00; Stop 03/15/17 at 06:59; Status DC Hydromorphone HCl (Dilaudid) 0.5 mg PRN Q10MIN PRN IV SEV PAIN, Second choice Last administered on 9/27/17at 16:37; Start 03/14/17 at 07:00; Stop 03/15/17 at 06:59; Status DC Prochlorperazine Edisylate (Compazine) 5 mg PACU PRN PRN IV NAUSEA, MRX1 Last administered on 03/14/17t 16:03; Start 03/14/17 at 07:00; Stop 03/15/17 at 06:59 ; Status DC Midazolam HCl (Versed) 2 mg STK-MED ONCE .ROUTE ; Start 03/14/17 at 09:45; Stop 03/14/17 at 09:46; Status DC Remifentanil HCl (Ultiva) 2 mg STK-MED ONCE IV ; Start 03/14/17 at 09:45; Stop 03/14/17 at 09:46; Status DC Succinylcholine Chloride (Anectine) 200 mg STK-MED ONCE .ROUTE ; Start 03/14/17 at 09:47; Stop 03/14/17 at 09:48; Status DC Glycopyrrolate (Robinul) 1 mg STK-MED ONCE .ROUTE ; Start 03/14/17 at 09:48; Stop 03/14/17 at 09:49; Status DC Phenylephrine HCl (Sen-Synephrine Inj) 10 mg STK-MED ONCE .ROUTE ; Start at 09:48; Stop 03/14/17 at 09:49; Status DC Isoflurane (Isoflurane) 90 ml STK-MED ONCE IH ; Start 03/14/17 at 09:48; Stop at 09:49; Status DC Dexamethasone Sodium Phosphate (Decadron) 20 mg STK-MED ONCE .ROUTE ; Start at 09:48; Stop 03/14/17 at 09:49; Status DC Propofol 20 ml @ As Directed STK-MED ONCE IV ; Start 03/14/17 at 09:48; Stop at 09:49; Status DC Propofol 50 ml @ As Directed STK-MED ONCE IV ; Start 03/14/17 at 09:48; Stop at 09:49; Status DC Ondansetron HCl (Zofran) 4 mg STK-MED ONCE .ROUTE ; Start 03/14/17 at 09:48; Stop 03/14/17 at 09:49; Status DC Lidocaine HCl (Lidocaine Pf 2% Vial) 5 ml STK-MED ONCE .ROUTE ; Start 03/14/17 at 09:48; Stop 03/14/17 at 09:49; Status DC Gelatin (Gelfoam Size 100) 1 each STK-MED ONCE .ROUTE Last administered on 13:27; Start 03/14/17 at 09:05; Stop 03/14/17 at 10:05; Status DC Ketorolac Tromethamine (Toradol For Or Only) 60 mg STK-MED ONCE .ROUTE Last administered on 03/14/17 13:27; Start 03/14/17 at 09:05; Stop 03/14/17 at 10:05 ; Status DC Bupivacaine HCl/ Epinephrine Bitart (Sensorcaine-Epi 0.25%-1:830114 Mpf) 30 ml STK-MED ONCE .ROUTE Last administered on 03/14/17 13:27; Start 03/14/17 at 09: 05; Stop 03/14/17 at 10:05; Status DC Thrombin 20,000 unit STK-MED ONCE TP Last administered on 03/14/17 13:27; Start 03/14/17 at 09:05; Stop 03/14/17 at 10:06; Status DC Remifentanil HCl (Ultiva) 2 mg STK-MED ONCE IV ; Start 03/14/17 at 13:59; Stop 03/14/17 at 14:00; Status DC Sodium Chloride (Sodium Chloride) 50 ml STK-MED ONCE IJ ; Start 03/14/17 at 13: 59; Stop 03/14/17 at 14:00; Status DC Desflurane (Suprane) 90 ml STK-MED ONCE IH ; Start 03/14/17 at 14:30; Stop 03/14 at 14:31; Status DC Propofol 100 ml @ As Directed STK-MED ONCE IV ; Start 03/14/17 at 14:44; Stop 03/14/17 at 14:45; Status DC Tamsulosin HCl (Flomax) 0.4 mg QHS PO Last administered on 03/14/17 21:22; Start 03/14/17 at 21:00 Nystatin (Mycostatin) 1 bassam BID TP Last administered on 9/27/17at 21:24; Start 03/14/17 at 21:00 Active Scripts Active Synthroid (Levothyroxine Sodium) 88 Mcg Tablet 1 Tab PO DAILY [Metoprolol Tartrate] 25 MG Tablet 12.5 Mg PO BID Reported Oxycodon-Acetaminophen 2.5-325 (Oxycodone Hcl/Acetaminophen) 1 Each Tablet 1 Each PO PRN Q6HRS PRN Proair Hfa Inhaler (Albuterol Sulfate) 8.5 Gm Hfa.aer.ad 1 Puff INH PRN Q6HRS PRN Actos (Pioglitazone Hcl) 15 Mg Tablet 15 Mg PO DAILY Trulicity (Dulaglutide) 0.75 Mg/0.5 Ml Pen.injctr 0.75 Mg SQ Requip (Ropinirole Hcl) 0.5 Mg Tablet 0.5 Mg PO BID Vitamin D3 (Cholecalciferol (Vitamin D3)) 400 Unit Tablet 400 Unit PO DAILY Tudorza Pressair (Aclidinium [place]) 400 Mcg Aer.pow.ba 400 Mcg IH BID Brovana (Arformoterol Tartrate) 15 Mcg/2 Ml Vial.neb 15 Mcg IH Flovent 220MCG Hfa (Fluticasone Propionate) 12 Gm Aer.w.adap 12 Gm IH Vitamin E 1,000 Unit Capsule 1,000 Unit PO Haloperidol 5 Mg Tablet 5 Mg PO Lipitor (Atorvastatin Calcium) 80 Mg Tablet 80 Mg PO Valacyclovir (Valacyclovir Hcl) 1,000 Mg Tablet 1,000 Mg PO Oxybutynin Chloride 5 Mg Tablet 5 Mg PO Lisinopril 10 Mg Tablet 20 Mg PO Meloxicam 15 Mg Tablet 15 Mg PO Prilosec (Omeprazole) 10 Mg Capsule.dr 20 Mg PO Vitals/I & O Vital Sign - Last 24 Hours 03/14/17 03/14/17 03/14/17 03/14/17 11:00 11:11 11:54 15:56 Temp 97.5 97.8 97.5 97.8 Pulse 71 71 Resp 20 22 B/P (MAP) 108/30 (56) 117/56 Pulse Ox 97 97 O2 Delivery Nasal Cannula Nasal Cannula Nasal Cannula Mask O2 Flow Rate 3.0 3.0 2 10 03/14/17 03/14/17 03/14/17 03/14/17 15:56 16:10 16:11 16:25 Temp 97.0 97.0 Pulse 78 74 82 Resp 15 15 16 16 B/P (MAP) 155/74 154/94 Pulse Ox 97 100 94 O2 Delivery Simple Mask Room Air Nasal Cannula Nasal Cannula O2 Flow Rate 10 2 03/14/17 03/14/17 03/14/17 03/14/17 16:37 16:40 19:00 19:33 Temp 97.8 97.8 97.8 97.8 Pulse 82 83 Resp 16 16 19 B/P (MAP) 145/73 139/52 (81) Pulse Ox 95 96 O2 Delivery Nasal Cannula Nasal Cannula Nasal Cannula Nasal Cannula O2 Flow Rate 2 3.0 3.0 03/14/17 03/14/17 03/14/17 03/14/17 19:57 20:00 20:00 21:00 Temp 98.4 98.4 Pulse 82 78 Resp 20 20 20 B/P (MAP) 137/69 (91) 132/64 (86) Pulse Ox 98 3 94 O2 Delivery Nasal Cannula Nasal Cannula Nasal Cannula Nasal Cannula O2 Flow Rate 2.0 98.0 3.0 3.0 03/14/17 03/14/17 03/14/17 03/14/17 21:21 21:32 22:45 22:49 Temp 97.9 97.9 Pulse 83 69 Resp 20 20 19 B/P (MAP) 139/52 133/61 (85) Pulse Ox 92 98 O2 Delivery Room Air Nasal Cannula O2 Flow Rate 2.0 3.0 03/14/17 03/15/17 03/15/17 03/15/17 23:03 02:44 03:15 03:20 Temp 97.5 97.5 Pulse 89 Resp 20 18 18 21 B/P (MAP) 154/69 (97) Pulse Ox 2 3 95 94 O2 Delivery Nasal Cannula Nasal Cannula Nasal Cannula Nasal Cannula O2 Flow Rate 2.0 2.5 03/15/17 03/15/17 03/15/17 03/15/17 04:11 05:15 05:57 07:00 Temp 98.1 98.1 Pulse 83 Resp 20 18 B/P (MAP) 133/52 (79) Pulse Ox 3 95 95 94 O2 Delivery Nasal Cannula Nasal Cannula Nasal Cannula Nasal Cannula O2 Flow Rate 2.0 2.0 2.5 03/15/17 03/15/17 03/15/17 07:56 09:08 09:09 Pulse 74 Resp 16 B/P (MAP) 154/69 Pulse Ox 94 O2 Delivery Nasal Cannula Nasal Cannula O2 Flow Rate 3.0 2.0 GUILLERMO SANCHEZ APRN Mar 15, 2017 09:58
[2017-03-15 11:00] VITALS: BP 113/45
[2017-03-15 15:00] VITALS: BP 91/35
[2017-03-15] MEDS ORDERED: BISACODYL 10 MG SUPP.RECT. PR PRN (16:15)
[2017-03-15] MEDS ORDERED: MAGNESIUM CITRATE 296 ML SOLUTION. PO PRN (16:15)
--- NOTE | 2017-03-15 18:21 | PDOC ---
PROGRESS NOTES Subjective She feels better but cannot move her legs due to weakness but pain controlled, trying to urinate, on bladder scan protocol Objective Afebrile BP: noted General: comfortable Heart: RRR Lungs: no wheezing, normal respiratory effort Abd: obese, lovonox bruises Ext: edema of feet/ lower extremities Vital Signs Vital Signs Date Time Temp Pulse Resp B/P (MAP) Pulse Ox O2 Delivery O2 Flow Rate FiO2 03/15/17 16:56 16 Nasal Cannula 2.0 03/15/17 15:44 94 03/15/17 15:00 98.1 80 91/35 (53) 98.1 I & O Intake and Output 03/16/17 07:00 Intake Total 480 ml Output Total 600 ml Balance -120 ml Intake Oral 480 ml Output Urine Total 600 ml Assessment and Plan Problems Medical Problems: (1) Acute herniated disc- Post op day 1 microdiscectomy L4-5 Status: Acute type II diabetes hypothyroidism schizophrenia hypertension morbid obesity Status: stable Problems: Prosper MEEHAN MD Mar 15, 2017 18:21
[2017-03-15 19:00] VITALS: BP 103/42
[2017-03-15] MEDS: ATORVASTATIN CALCIUM 40 MG TABLET. PO SCH (21:06)
[2017-03-15] MEDS: HALOPERIDOL 5 MG TABLET. PO SCH (21:06)
[2017-03-15] MEDS: TAMSULOSIN 0.4 MG CAP.ER.24H. PO SCH (21:07)
[2017-03-15 23:00] VITALS: BP_SYST 105; BP_SYST 40; BP_DIAS 40
[2017-03-16] MEDS: fentaNYL PF VIAL 100 MCG/2 ML VIAL IV PRN ×2 (00:29→05:54)
[2017-03-16] MEDS: oxyCODONE/APAP 5/325 1 TAB TABLET PO PRN ×3 (02:58→15:08)
[2017-03-16 03:00] VITALS: BP 90/49
[2017-03-16] MEDS: PANTOPRAZOLE 40 MG TABLET.DR. PO SCH (05:54)
[2017-03-16] MEDS: LEVOTHYROXINE 88 MCG TABLET PO SCH (05:54)
[2017-03-16 07:00] VITALS: BP 102/44
[2017-03-16] MEDS: BUDESONIDE 0.5 MG/2 ML NEBU. NEB SCH ×2 (08:22→20:37)
[2017-03-16] MEDS: IPRATRPIUM/ALBUTEROL 0.5/2.5MG 3 ML NEBU. NEB SCH ×4 (08:22→20:36)
[2017-03-16] MEDS: NYSTATIN 100,000 UNIT/GM TOPICAL CREAM 15GM TUBE. TP SCH ×2 (09:00→22:17)
[2017-03-16] MEDS: METOPROLOL TART IMMED RELEASE 25 MG TABLET. PO SCH ×2 (09:00→21:00)
[2017-03-16] MEDS ORDERED: METHYLNALTREXONE 12 MG/0.6 ML VIAL. SQ ONE (09:15)
[2017-03-16] MEDS: ENOXAPARIN 40 MG/0.4 ML SYRINGE. SQ SCH ×2 (09:31→22:21)
[2017-03-16] MEDS: POLYETHYLENE GLYCOL 3350 17 GM PACKET. PO SCH (09:32)
[2017-03-16] MEDS: CHOLECALCIFEROL (VITAMIN D3) 1,000 UNIT TABLET PO SCH (09:32)
[2017-03-16] MEDS: OXYBUTYNIN CHLORIDE 5 MG TABLET PO SCH ×2 (09:33→22:21)
[2017-03-16] MEDS: PIOGLITAZONE 15 MG TABLET. PO SCH (09:33)
[2017-03-16] MEDS: rOPINIRole 0.25 MG TABLET. PO SCH ×2 (09:33→22:17)
--- NOTE | 2017-03-16 09:38 | PDOC ---
PROGRESS NOTES Subjective Subjective No new complaints. Objective Objective Vital Signs Date Time Temp Pulse Resp B/P (MAP) Pulse Ox O2 Delivery O2 Flow Rate FiO2 03/16/17 08:23 97 Nasal Cannula 3.0 03/16/17 07:00 97.9 91 20 102/44 (63) 97.9 Physical Exam Physical Exam She is sitting up in bedside recliner and seems to be comfortable but admits continued pain with moving right hip and some weakness in left hip flexors.She apparently sleeps on couch at home. Assessment Assessment Problems Medical Problems: (1) Acute herniated disc Status: Acute (2) Intractable back pain Status: Acute Plan Plan of Care I spoke to and physical therapy and to SNF when medically stable. Comment Review of Relevant I have reviewed the following items hitesh (where applicable) has been applied. Labs Laboratory Tests Test 03/14/17 12:12 03/14/17 16:32 03/14/17 20:51 03/15/17 07:51 Glucose (Fingerstick) 87 mg/dL (70-99) 109 mg/dL (70-99) 176 mg/dL (70-99) 157 mg/dL (70-99) Test 03/15/17 10:55 03/15/17 16:37 03/15/17 20:58 03/16/17 07:42 Glucose (Fingerstick) 159 mg/dL (70-99) 178 mg/dL (70-99) 170 mg/dL (70-99) 108 mg/dL (70-99) Laboratory Tests Test 03/15/17 10:55 03/15/17 16:37 03/15/17 20:58 03/16/17 07:42 Glucose (Fingerstick) 159 mg/dL (70-99) 178 mg/dL (70-99) 170 mg/dL (70-99) 108 mg/dL (70-99) Microbiology 03/11/17 Urine Culture - Final, Complete 03/11/17 Urine Culture Result 1 (ADELAIDA) - Final, Complete Medications Current Medications Fentanyl Citrate (Fentanyl 2ml Vial) 75 mcg 1X ONCE IV Last administered on t 14:13; Start 03/09/17 at 14:00; Stop 03/09/17 at 14:01; Status DC Ketorolac Tromethamine (Toradol) 15 mg 1X ONCE IV Last administered on 14:13; Start 03/09/17 at 14:00; Stop 03/09/17 at 14:01; Status DC Morphine Sulfate 4 mg 1X ONCE IV Last administered on 03/09/17 15:40; Start 03/09/17 at 15:15; Stop 03/09/17 at 15:16; Status DC Morphine Sulfate 2 mg 1X ONCE IV Last administered on 03/09/17 17:34; Start 03/09/17 at 17:15; Stop 03/09/17 at 17:16; Status DC Morphine Sulfate 5 mg 1X ONCE IV Last administered on 03/09/17 19:23; Start 03/09/17 at 19:15; Stop 03/09/17 at 19:16; Status DC Haloperidol (Haldol) 5 mg HS PO Last administered on 03/15/17 21:06; Start at 21:00 Levothyroxine Sodium (Synthroid) 88 mcg DAILY06 PO Last administered on 05:54; Start 03/10/17 at 06:00 Lisinopril (Prinivil) 20 mg DAILY PO ; Start 03/10/17 at 09:00; Stop 03/10/17 at 11:01; Status DC Oxybutynin Chloride (Ditropan) 2.5 mg BID PO Last administered on 03/15/17 21: 05; Start 03/09/17 at 21:00 Pioglitazone HCl (Actos) 15 mg DAILY PO Last administered on 03/15/17 09:07; Start 03/10/17 at 09:00 Non-Formulary Medication 400 mcg BID IH ; Start 03/09/17 at 21:00; Status UNV Non-Formulary Medication 1 puff PRN Q6HRS PRN INH SHORTNESS OF BREATH; Start at 20:30; Status UNV Vitamin D (Vitamin D3) 500 unit DAILY PO Last administered on 03/15/17 09:05; Start 03/10/17 at 09:00 Oxycodone/ Acetaminophen (Percocet 5/325) 0.5 tab PRN Q6HRS PRN PO PAIN Last administered on 03/09/17 21:33; Start 03/09/17 at 20:45; Stop 03/09/17 at 22:49 ; Status DC Ropinirole HCl (Requip) 0.5 mg BID PO Last administered on 03/15/17 21:07; Start 03/09/17 at 21:00 Metoprolol Tartrate (Lopressor) 12 mg BID PO Last administered on 03/12/17 08: 34; Start 03/09/17 at 21:00; Stop 03/12/17 at 11:37; Status DC Atorvastatin Calcium (Lipitor) 80 mg QHS PO Last administered on 03/15/17 21: 06; Start 03/09/17 at 21:00 Budesonide (Pulmicort) 0.5 mg RTBID NEB Last administered on 03/16/17 08:22; Start 03/09/17 at 21:00 Naproxen (Naprosyn) 500 mg BIDWMEALS PO Last administered on 03/15/17 09:03; Start 03/09/17 at 21:00; Stop 03/15/17 at 16:09; Status DC Pantoprazole Sodium (Protonix) 40 mg DAILYAC PO Last administered on 03/16/17 05:54; Start 03/10/17 at 07:30 Enoxaparin Sodium (Lovenox 40mg Syringe) 40 mg Q24H SQ Last administered on 20:29; Start 03/09/17 at 21:00; Stop 03/12/17 at 10:11; Status DC Albuterol/ Ipratropium (Duoneb) 3 ml RTQID NEB Last administered on 03/16/17 08:22; Start 03/09/17 at 21:00 Albuterol Sulfate (Ventolin Neb Soln) 2.5 mg PRN Q6HRS PRN NEB SHORTNESS OF BREATH; Start 03/09/17 at 20:45 Oxycodone/ Acetaminophen (Percocet 5/325) 1 tab PRN Q6HRS PRN PO PAIN Last administered on 03/15/17 04:11; Start 03/09/17 at 23:00 Fentanyl Citrate (Fentanyl 2ml Vial) 50 mcg PRN Q3HRS PRN IV PAIN Last administered on 03/16/17 05:54; Start 03/09/17 at 23:00 Oxycodone/ Acetaminophen (Percocet 5/325) 2 tab PRN Q6HRS PRN PO PAIN Last administered on 03/16/17 02:58; Start 03/09/17 at 23:00 Info (Do NOT chart on this placeholder) 0.5 each 1X ONCE MC ; Start 03/10/17 at 00:00; Stop 03/10/17 at 00:01; Status UNV Influenza Virus Vaccine Quadrival (Fluarix Quad 0499-4851 Syringe) 0.5 ml ONCE ONCE VAX IM Last administered on 03/12/17 14:29; Start 03/10/17 at 09:00; Stop 03/10/17 at 09:01; Status DC Sodium Chloride 500 ml @ 500 mls/hr 1X ONCE IV Last administered on 04:33; Start 03/10/17 at 04:00; Stop 03/10/17 at 04:59; Status DC Sodium Chloride 1,000 ml @ 90 mls/hr Q11H7M IV Last administered on 03/11/17 05:37; Start 03/10/17 at 04:00; Stop 03/11/17 at 09:40; Status DC Lidocaine (Lidoderm) 2 patch PRN DAILY PRN TD TOPICAL PAIN Last administered on 03/10/17 19:34; Start 03/10/17 at 19:30; Stop 03/10/17 at 20:08; Status DC Lidocaine (Lidoderm) 3 patch PRN DAILY PRN TD TOPICAL PAIN Last administered on 03/12/17 20:54; Start 03/10/17 at 20:15 Furosemide (Lasix) 20 mg 1X ONCE IVP Last administered on 03/10/17 20:15; Start 03/10/17 at 20:15; Stop 03/10/17 at 20:25; Status DC Lidocaine (Lidoderm) 1 patch 1X ONCE TD Last administered on 03/10/17 20:32; Start 03/10/17 at 20:15; Stop 03/10/17 at 20:25; Status DC Sodium Chloride 250 ml @ 250 mls/hr 1X ONCE IV Last administered on 05:00; Start 03/11/17 at 05:00; Stop 03/11/17 at 05:59; Status DC Phenazopyridine HCl (Pyridium) 200 mg TID PRN PO URINARY PAIN Last administered on 03/11/17 20:29; Start 03/11/17 at 10:00; Stop 03/13/17 at 09:59 ; Status DC Guaifenesin (Mucinex) 600 mg BID PO Last administered on 03/15/17 21:07; Start 03/11/17 at 10:00 Levofloxacin (Levaquin) 750 mg DAILY06 PO Last administered on 03/12/17 05:20 ; Start 03/11/17 at 10:00; Stop 03/12/17 at 11:35; Status DC Fluconazole (Diflucan) 150 mg 1X ONCE PO Last administered on 03/11/17 10:54 ; Start 03/11/17 at 10:00; Stop 03/11/17 at 10:01; Status DC Enoxaparin Sodium (Lovenox 40mg Syringe) 40 mg Q12HR SQ Last administered on 21:06; Start 03/12/17 at 12:00 Levofloxacin (Levaquin) 250 mg DAILY06 PO Last administered on 03/16/17 05:54 ; Start 03/13/17 at 06:00 Metoprolol Tartrate (Lopressor) 12.5 mg BID PO Last administered on 03/15/17 09:08; Start 03/12/17 at 21:00 Polyethylene Glycol (miraLAX PACKET) 17 gm DAILY PO Last administered on 09:06; Start 03/13/17 at 09:00 Furosemide (Lasix) 20 mg 1X ONCE IVP Last administered on 03/13/17 09:14; Start 03/13/17 at 09:00; Stop 03/13/17 at 09:01; Status DC Bacitracin 58940 unit/Sodium Chloride 1,000 ml @ 1,000 mls/hr 1X PERIOP ONCE IRR Last administered on 03/14/17 13:27; Start 03/14/17 at 06:00; Stop at 06:59; Status DC Fentanyl Citrate (Fentanyl 2ml Vial) 25 mcg PRN Q5MIN PRN IV MILD PAIN; Start 03/14/17 at 07:00; Stop 03/15/17 at 06:59; Status DC Fentanyl Citrate (Fentanyl 2ml Vial) 50 mcg PRN Q5MIN PRN IV MODERATE PAIN Last administered on 03/14/17 16:11; Start 03/14/17 at 07:00; Stop 03/15/17 at 06:59; Status DC Morphine Sulfate 1 mg PRN Q10MIN PRN IV SEVERE PAIN; Start 03/14/17 at 07:00; Stop 03/15/17 at 06:59; Status DC Ringer's Solution 1,000 ml @ 30 mls/hr Q24H IV Last administered on 03/14/17 12:09; Start 03/14/17 at 07:00; Stop 03/14/17 at 18:59; Status DC Lidocaine HCl (Xylocaine-Mpf 1% Vial) 2 ml PRN 1X PRN ID IV START; Start at 07:00; Stop 03/15/17 at 06:59; Status DC Hydromorphone HCl (Dilaudid) 0.5 mg PRN Q10MIN PRN IV SEV PAIN, Second choice Last administered on 03/14/17 16:37; Start 03/14/17 at 07:00; Stop 03/15/17 at 06:59; Status DC Prochlorperazine Edisylate (Compazine) 5 mg PACU PRN PRN IV NAUSEA, MRX1 Last administered on 03/14/17 16:03; Start 03/14/17 at 07:00; Stop 03/15/17 at 06:59 ; Status DC Midazolam HCl (Versed) 2 mg STK-MED ONCE .ROUTE ; Start 03/14/17 at 09:45; Stop 03/14/17 at 09:46; Status DC Remifentanil HCl (Ultiva) 2 mg STK-MED ONCE IV ; Start 03/14/17 at 09:45; Stop 03/14/17 at 09:46; Status DC Succinylcholine Chloride (Anectine) 200 mg STK-MED ONCE .ROUTE ; Start 03/14/17 at 09:47; Stop 03/14/17 at 09:48; Status DC Glycopyrrolate (Robinul) 1 mg STK-MED ONCE .ROUTE ; Start 03/14/17 at 09:48; Stop 03/14/17 at 09:49; Status DC Phenylephrine HCl (Sen-Synephrine Inj) 10 mg STK-MED ONCE .ROUTE ; Start at 09:48; Stop 03/14/17 at 09:49; Status DC Isoflurane (Isoflurane) 90 ml STK-MED ONCE IH ; Start 03/14/17 at 09:48; Stop at 09:49; Status DC Dexamethasone Sodium Phosphate (Decadron) 20 mg STK-MED ONCE .ROUTE ; Start at 09:48; Stop 03/14/17 at 09:49; Status DC Propofol 20 ml @ As Directed STK-MED ONCE IV ; Start 03/14/17 at 09:48; Stop at 09:49; Status DC Propofol 50 ml @ As Directed STK-MED ONCE IV ; Start 03/14/17 at 09:48; Stop at 09:49; Status DC Ondansetron HCl (Zofran) 4 mg STK-MED ONCE .ROUTE ; Start 03/14/17 at 09:48; Stop 03/14/17 at 09:49; Status DC Lidocaine HCl (Lidocaine Pf 2% Vial) 5 ml STK-MED ONCE .ROUTE ; Start 03/14/17 at 09:48; Stop 03/14/17 at 09:49; Status DC Gelatin (Gelfoam Size 100) 1 each STK-MED ONCE .ROUTE Last administered on 13:27; Start 03/14/17 at 09:05; Stop 03/14/17 at 10:05; Status DC Ketorolac Tromethamine (Toradol For Or Only) 60 mg STK-MED ONCE .ROUTE Last administered on 03/14/17 13:27; Start 03/14/17 at 09:05; Stop 03/14/17 at 10:05 ; Status DC Bupivacaine HCl/ Epinephrine Bitart (Sensorcaine-Epi 0.25%-1:[id number] Mpf) 30 ml STK-MED ONCE .ROUTE Last administered on 03/14/17 13:27; Start 03/14/17 at 09: 05; Stop 03/14/17 at 10:05; Status DC Thrombin 20,000 unit STK-MED ONCE TP Last administered on 03/14/17 13:27; Start 03/14/17 at 09:05; Stop 03/14/17 at 10:06; Status DC Remifentanil HCl (Ultiva) 2 mg STK-MED ONCE IV ; Start 03/14/17 at 13:59; Stop 03/14/17 at 14:00; Status DC Sodium Chloride (Sodium Chloride) 50 ml STK-MED ONCE IJ ; Start 03/14/17 at 13: 59; Stop 03/14/17 at 14:00; Status DC Desflurane (Suprane) 90 ml STK-MED ONCE IH ; Start 03/14/17 at 14:30; Stop 03/14 at 14:31; Status DC Propofol 100 ml @ As Directed STK-MED ONCE IV ; Start 03/14/17 at 14:44; Stop 03/14/17 at 14:45; Status DC Tamsulosin HCl (Flomax) 0.4 mg QHS PO Last administered on 03/15/17 21:07; Start 03/14/17 at 21:00 Nystatin (Mycostatin) 1 bassam BID TP Last administered on 03/15/17 21:05; Start 03/14/17 at 21:00 Vancomycin HCl 1 gm STK-MED ONCE .ROUTE ; Start 03/14/17 at 12:26; Stop at 11:30; Status DC Magnesium Citrate (Citroma) 296 ml PRN 1X PRN PO CONSTIPATION Last administered on 03/15/17 16:24; Start 03/15/17 at 16:15 Bisacodyl (Dulcolax Tab) 10 mg DAILY PO ; Start 03/16/17 at 09:00 Bisacodyl (Dulcolax Supp) 10 mg PRN DAILY PRN [place] CONSTIPATION; Start 03/15/17 at 16:15 Polyethylene Glycol (miraLAX PACKET) 17 gm DAILY PO ; Start 03/16/17 at 10:00 Methylnaltrexone [place] (Relistor) 12 mg 1X ONCE SQ ; Start 03/16/17 at 09:15 ; Stop 03/16/17 at 09:16; Status DC Active Scripts Active Synthroid (Levothyroxine Sodium) 88 Mcg Tablet 1 Tab PO DAILY [Metoprolol Tartrate] 25 MG Tablet 12.5 Mg PO BID Reported Oxycodon-Acetaminophen 2.5-325 (Oxycodone Hcl/Acetaminophen) 1 Each Tablet 1 Each PO PRN Q6HRS PRN Proair Hfa Inhaler (Albuterol Sulfate) 8.5 Gm Hfa.aer.ad 1 Puff INH PRN Q6HRS PRN Actos (Pioglitazone Hcl) 15 Mg Tablet 15 Mg PO DAILY Trulicity (Dulaglutide) 0.75 Mg/0.5 Ml Pen.injctr 0.75 Mg SQ Requip (Ropinirole Hcl) 0.5 Mg Tablet 0.5 Mg PO BID Vitamin D3 (Cholecalciferol (Vitamin D3)) 400 Unit Tablet 400 Unit PO DAILY Tudorza Pressair (Aclidinium [place]) 400 Mcg Aer.pow.ba 400 Mcg IH BID Brovana (Arformoterol Tartrate) 15 Mcg/2 Ml Vial.neb 15 Mcg IH Flovent 220MCG Hfa (Fluticasone Propionate) 12 Gm Aer.w.adap 12 Gm IH Vitamin E 1,000 Unit Capsule 1,000 Unit PO Haloperidol 5 Mg Tablet 5 Mg PO Lipitor (Atorvastatin Calcium) 80 Mg Tablet 80 Mg PO Valacyclovir (Valacyclovir Hcl) 1,000 Mg Tablet 1,000 Mg PO Oxybutynin Chloride 5 Mg Tablet 5 Mg PO Lisinopril 10 Mg Tablet 20 Mg PO Meloxicam 15 Mg Tablet 15 Mg PO Prilosec (Omeprazole) 10 Mg Capsule.dr 20 Mg PO Vitals/I & O Vital Sign - Last 24 Hours 03/15/17 03/15/17 03/15/17 03/15/17 10:37 11:00 12:31 12:46 Temp 97.7 97.7 Pulse 80 Resp 16 18 16 B/P (MAP) 113/45 (67) Pulse Ox 94 95 O2 Delivery Nasal Cannula Nasal Cannula Nasal Cannula Nasal Cannula O2 Flow Rate 2.0 2.5 3.0 2.0 03/15/17 03/15/17 03/15/17 03/15/17 15:00 15:44 16:26 19:00 Temp 98.1 97.4 98.1 97.4 Pulse 80 86 Resp 18 16 18 B/P (MAP) 91/35 (53) 103/42 (62) Pulse Ox 96 94 94 O2 Delivery Nasal Cannula Nasal Cannula Nasal Cannula O2 Flow Rate 2.5 3.0 2.0 03/15/17 03/15/17 03/15/17 03/15/17 19:44 19:59 20:00 21:00 Pulse 86 Resp 16 B/P (MAP) 103/42 Pulse Ox 96 96 O2 Delivery Nasal Cannula Nasal Cannula Nasal Cannula O2 Flow Rate 3.0 3.0 3.0 03/15/17 03/15/17 03/16/17 03/16/17 21:08 23:00 00:29 02:58 Temp 98.2 98.2 Pulse 70 Resp 16 18 16 16 B/P (MAP) 105/40 (61) Pulse Ox 96 95 95 95 O2 Delivery Nasal Cannula Nasal Cannula Nasal Cannula O2 Flow Rate 3.0 3.0 3.0 03/16/17 03/16/17 03/16/17 03/16/17 03:00 03:58 05:54 06:24 Temp 98.1 98.1 Pulse 85 Resp 18 16 16 16 B/P (MAP) 90/49 (63) Pulse Ox 95 95 95 95 O2 Delivery Nasal Cannula Nasal Cannula Nasal Cannula O2 Flow Rate 3.0 3.0 3.0 03/16/17 03/16/17 03/16/17 03/16/17 07:00 08:00 08:23 08:23 Temp 97.9 97.9 Pulse 91 Resp 20 B/P (MAP) 102/44 (63) Pulse Ox 96 97 97 O2 Delivery Nasal Cannula Nasal Cannula Nasal Cannula Nasal Cannula O2 Flow Rate 3.0 3.0 3.0 3.0 CASSIDY ORNELAS MD Mar 16, 2017 09:37
[2017-03-16] MEDS: BISACODYL 5 MG TABLET.DR. PO SCH (09:50)
[2017-03-16] MEDS ORDERED: POLYETHYLENE GLYCOL 3350 17 GM PACKET. PO SCH (10:00)
[2017-03-16 11:00] VITALS: BP 108/44
--- NOTE | 2017-03-16 12:00 | PDOC ---
PROGRESS NOTES Subjective Subjective up in chair eating lunch c/o stomach ache still some right hip pain Objective Objective Vital Signs Date Time Temp Pulse Resp B/P (MAP) Pulse Ox O2 Delivery O2 Flow Rate FiO2 03/16/17 11:38 Nasal Cannula 2.0 03/16/17 11:00 97.7 93 18 108/44 (65) 94 97.7 Physical Exam General: Alert, Oriented X3, Cooperative, No acute distress MUSCULOSKELETAL: Other (JOHNSON) Neuro: Normal speech Skin: Other (dressing changed, jean marie intact, dry , flat) Assessment Assessment Problems Medical Problems: (1) Acute herniated disc Status: Acute (2) Intractable back pain Status: Acute Plan Plan of Care may dc per Dr. Aguilar recommendations f/u 2 weeks for staple removal Comment Review of Relevant I have reviewed the following items hitesh (where applicable) has been applied. Labs Laboratory Tests Test 03/14/17 12:12 03/14/17 16:32 03/14/17 20:51 03/15/17 07:51 Glucose (Fingerstick) 87 mg/dL (70-99) 109 mg/dL (70-99) 176 mg/dL (70-99) 157 mg/dL (70-99) Test 03/15/17 10:55 03/15/17 16:37 03/15/17 20:58 03/16/17 07:42 Glucose (Fingerstick) 159 mg/dL (70-99) 178 mg/dL (70-99) 170 mg/dL (70-99) 108 mg/dL (70-99) Test 03/16/17 10:51 Glucose (Fingerstick) 127 mg/dL (70-99) Laboratory Tests Test 03/15/17 16:37 03/15/17 20:58 03/16/17 07:42 03/16/17 10:51 Glucose (Fingerstick) 178 mg/dL (70-99) 170 mg/dL (70-99) 108 mg/dL (70-99) 127 mg/dL (70-99) Microbiology 03/11/17 Urine Culture - Final, Complete 03/11/17 Urine Culture Result 1 (ADELAIDA) - Final, Complete Medications Current Medications Fentanyl Citrate (Fentanyl 2ml Vial) 75 mcg 1X ONCE IV Last administered on t 14:13; Start 03/09/17 at 14:00; Stop 03/09/17 at 14:01; Status DC Ketorolac Tromethamine (Toradol) 15 mg 1X ONCE IV Last administered on 14:13; Start 03/09/17 at 14:00; Stop 03/09/17 at 14:01; Status DC Morphine Sulfate 4 mg 1X ONCE IV Last administered on 03/09/17 15:40; Start 03/09/17 at 15:15; Stop 03/09/17 at 15:16; Status DC Morphine Sulfate 2 mg 1X ONCE IV Last administered on 03/09/17 17:34; Start 03/09/17 at 17:15; Stop 03/09/17 at 17:16; Status DC Morphine Sulfate 5 mg 1X ONCE IV Last administered on 03/09/17 19:23; Start 03/09/17 at 19:15; Stop 03/09/17 at 19:16; Status DC Haloperidol (Haldol) 5 mg HS PO Last administered on 03/15/17 21:06; Start at 21:00 Levothyroxine Sodium (Synthroid) 88 mcg DAILY06 PO Last administered on 05:54; Start 03/10/17 at 06:00 Lisinopril (Prinivil) 20 mg DAILY PO ; Start 03/10/17 at 09:00; Stop 03/10/17 at 11:01; Status DC Oxybutynin Chloride (Ditropan) 2.5 mg BID PO Last administered on 03/16/17 09: 33; Start 03/09/17 at 21:00 Pioglitazone HCl (Actos) 15 mg DAILY PO Last administered on 03/16/17 09:33; Start 03/10/17 at 09:00 Non-Formulary Medication 400 mcg BID IH ; Start 03/09/17 at 21:00; Status UNV Non-Formulary Medication 1 puff PRN Q6HRS PRN INH SHORTNESS OF BREATH; Start at 20:30; Status UNV Vitamin D (Vitamin D3) 500 unit DAILY PO Last administered on 03/16/17 09:32; Start 03/10/17 at 09:00 Oxycodone/ Acetaminophen (Percocet 5/325) 0.5 tab PRN Q6HRS PRN PO PAIN Last administered on 03/09/17 21:33; Start 03/09/17 at 20:45; Stop 03/09/17 at 22:49 ; Status DC Ropinirole HCl (Requip) 0.5 mg BID PO Last administered on 03/16/17 09:33; Start 03/09/17 at 21:00 Metoprolol Tartrate (Lopressor) 12 mg BID PO Last administered on 03/12/17 08: 34; Start 03/09/17 at 21:00; Stop 03/12/17 at 11:37; Status DC Atorvastatin Calcium (Lipitor) 80 mg QHS PO Last administered on 03/15/17 21: 06; Start 03/09/17 at 21:00 Budesonide (Pulmicort) 0.5 mg RTBID NEB Last administered on 03/16/17 08:22; Start 03/09/17 at 21:00 Naproxen (Naprosyn) 500 mg BIDWMEALS PO Last administered on 03/15/17 09:03; Start 03/09/17 at 21:00; Stop 03/15/17 at 16:09; Status DC Pantoprazole Sodium (Protonix) 40 mg DAILYAC PO Last administered on 03/16/17 05:54; Start 03/10/17 at 07:30 Enoxaparin Sodium (Lovenox 40mg Syringe) 40 mg Q24H SQ Last administered on 20:29; Start 03/09/17 at 21:00; Stop 03/12/17 at 10:11; Status DC Albuterol/ Ipratropium (Duoneb) 3 ml RTQID NEB Last administered on 03/16/17 08:22; Start 03/09/17 at 21:00 Albuterol Sulfate (Ventolin Neb Soln) 2.5 mg PRN Q6HRS PRN NEB SHORTNESS OF BREATH; Start 03/09/17 at 20:45 Oxycodone/ Acetaminophen (Percocet 5/325) 1 tab PRN Q6HRS PRN PO PAIN Last administered on 03/15/17 04:11; Start 03/09/17 at 23:00 Fentanyl Citrate (Fentanyl 2ml Vial) 50 mcg PRN Q3HRS PRN IV PAIN Last administered on 03/16/17 05:54; Start 03/09/17 at 23:00 Oxycodone/ Acetaminophen (Percocet 5/325) 2 tab PRN Q6HRS PRN PO PAIN Last administered on 03/16/17 09:32; Start 03/09/17 at 23:00 Info (Do NOT chart on this placeholder) 0.5 each 1X ONCE MC ; Start 03/10/17 at 00:00; Stop 03/10/17 at 00:01; Status UNV Influenza Virus Vaccine Quadrival (Fluarix Quad 2615-2541 Syringe) 0.5 ml ONCE ONCE VAX IM Last administered on 03/12/17 14:29; Start 03/10/17 at 09:00; Stop 03/10/17 at 09:01; Status DC Sodium Chloride 500 ml @ 500 mls/hr 1X ONCE IV Last administered on 04:33; Start 03/10/17 at 04:00; Stop 03/10/17 at 04:59; Status DC Sodium Chloride 1,000 ml @ 90 mls/hr Q11H7M IV Last administered on 03/11/17 05:37; Start 03/10/17 at 04:00; Stop 03/11/17 at 09:40; Status DC Lidocaine (Lidoderm) 2 patch PRN DAILY PRN TD TOPICAL PAIN Last administered on 03/10/17 19:34; Start 03/10/17 at 19:30; Stop 03/10/17 at 20:08; Status DC Lidocaine (Lidoderm) 3 patch PRN DAILY PRN TD TOPICAL PAIN Last administered on 03/12/17 20:54; Start 03/10/17 at 20:15 Furosemide (Lasix) 20 mg 1X ONCE IVP Last administered on 03/10/17 20:15; Start 03/10/17 at 20:15; Stop 03/10/17 at 20:25; Status DC Lidocaine (Lidoderm) 1 patch 1X ONCE TD Last administered on 03/10/17 20:32; Start 03/10/17 at 20:15; Stop 03/10/17 at 20:25; Status DC Sodium Chloride 250 ml @ 250 mls/hr 1X ONCE IV Last administered on 05:00; Start 03/11/17 at 05:00; Stop 03/11/17 at 05:59; Status DC Phenazopyridine HCl (Pyridium) 200 mg TID PRN PO URINARY PAIN Last administered on 03/11/17 20:29; Start 03/11/17 at 10:00; Stop 03/13/17 at 09:59 ; Status DC Guaifenesin (Mucinex) 600 mg BID PO Last administered on 03/16/17 09:33; Start 03/11/17 at 10:00 Levofloxacin (Levaquin) 750 mg DAILY06 PO Last administered on 03/12/17 05:20 ; Start 03/11/17 at 10:00; Stop 03/12/17 at 11:35; Status DC Fluconazole (Diflucan) 150 mg 1X ONCE PO Last administered on 03/11/17 10:54 ; Start 03/11/17 at 10:00; Stop 03/11/17 at 10:01; Status DC Enoxaparin Sodium (Lovenox 40mg Syringe) 40 mg Q12HR SQ Last administered on 09:31; Start 03/12/17 at 12:00 Levofloxacin (Levaquin) 250 mg DAILY06 PO Last administered on 03/16/17 05:54 ; Start 03/13/17 at 06:00 Metoprolol Tartrate (Lopressor) 12.5 mg BID PO Last administered on 03/15/17 09:08; Start 03/12/17 at 21:00 Polyethylene Glycol (miraLAX PACKET) 17 gm DAILY PO Last administered on 09:32; Start 03/13/17 at 09:00 Furosemide (Lasix) 20 mg 1X ONCE IVP Last administered on 03/13/17 09:14; Start 03/13/17 at 09:00; Stop 03/13/17 at 09:01; Status DC Bacitracin 32763 unit/Sodium Chloride 1,000 ml @ 1,000 mls/hr 1X PERIOP ONCE IRR Last administered on 03/14/17 13:27; Start 03/14/17 at 06:00; Stop at 06:59; Status DC Fentanyl Citrate (Fentanyl 2ml Vial) 25 mcg PRN Q5MIN PRN IV MILD PAIN; Start 03/14/17 at 07:00; Stop 03/15/17 at 06:59; Status DC Fentanyl Citrate (Fentanyl 2ml Vial) 50 mcg PRN Q5MIN PRN IV MODERATE PAIN Last administered on 03/14/17 16:11; Start 03/14/17 at 07:00; Stop 03/15/17 at 06:59; Status DC Morphine Sulfate 1 mg PRN Q10MIN PRN IV SEVERE PAIN; Start 03/14/17 at 07:00; Stop 03/15/17 at 06:59; Status DC Ringer's Solution 1,000 ml @ 30 mls/hr Q24H IV Last administered on 03/14/17 12:09; Start 03/14/17 at 07:00; Stop 03/14/17 at 18:59; Status DC Lidocaine HCl (Xylocaine-Mpf 1% Vial) 2 ml PRN 1X PRN ID IV START; Start at 07:00; Stop 03/15/17 at 06:59; Status DC Hydromorphone HCl (Dilaudid) 0.5 mg PRN Q10MIN PRN IV SEV PAIN, Second choice Last administered on 03/14/17 16:37; Start 03/14/17 at 07:00; Stop 03/15/17 at 06:59; Status DC Prochlorperazine Edisylate (Compazine) 5 mg PACU PRN PRN IV NAUSEA, MRX1 Last administered on 03/14/17 16:03; Start 03/14/17 at 07:00; Stop 03/15/17 at 06:59 ; Status DC Midazolam HCl (Versed) 2 mg STK-MED ONCE .ROUTE ; Start 03/14/17 at 09:45; Stop 03/14/17 at 09:46; Status DC Remifentanil HCl (Ultiva) 2 mg STK-MED ONCE IV ; Start 03/14/17 at 09:45; Stop 03/14/17 at 09:46; Status DC Succinylcholine Chloride (Anectine) 200 mg STK-MED ONCE .ROUTE ; Start 03/14/17 at 09:47; Stop 03/14/17 at 09:48; Status DC Glycopyrrolate (Robinul) 1 mg STK-MED ONCE .ROUTE ; Start 03/14/17 at 09:48; Stop 03/14/17 at 09:49; Status DC Phenylephrine HCl (Sen-Synephrine Inj) 10 mg STK-MED ONCE .ROUTE ; Start at 09:48; Stop 03/14/17 at 09:49; Status DC Isoflurane (Isoflurane) 90 ml STK-MED ONCE IH ; Start 03/14/17 at 09:48; Stop at 09:49; Status DC Dexamethasone Sodium Phosphate (Decadron) 20 mg STK-MED ONCE .ROUTE ; Start at 09:48; Stop 03/14/17 at 09:49; Status DC Propofol 20 ml @ As Directed STK-MED ONCE IV ; Start 03/14/17 at 09:48; Stop at 09:49; Status DC Propofol 50 ml @ As Directed STK-MED ONCE IV ; Start 03/14/17 at 09:48; Stop at 09:49; Status DC Ondansetron HCl (Zofran) 4 mg STK-MED ONCE .ROUTE ; Start 03/14/17 at 09:48; Stop 03/14/17 at 09:49; Status DC Lidocaine HCl (Lidocaine Pf 2% Vial) 5 ml STK-MED ONCE .ROUTE ; Start 03/14/17 at 09:48; Stop 03/14/17 at 09:49; Status DC Gelatin (Gelfoam Size 100) 1 each STK-MED ONCE .ROUTE Last administered on 13:27; Start 03/14/17 at 09:05; Stop 03/14/17 at 10:05; Status DC Ketorolac Tromethamine (Toradol For Or Only) 60 mg STK-MED ONCE .ROUTE Last administered on 03/14/17 13:27; Start 03/14/17 at 09:05; Stop 03/14/17 at 10:05 ; Status DC Bupivacaine HCl/ Epinephrine Bitart (Sensorcaine-Epi 0.25%-1:873131 Mpf) 30 ml STK-MED ONCE .ROUTE Last administered on 03/14/17 13:27; Start 03/14/17 at 09: 05; Stop 03/14/17 at 10:05; Status DC Thrombin 20,000 unit STK-MED ONCE TP Last administered on 03/14/17 13:27; Start 03/14/17 at 09:05; Stop 03/14/17 at 10:06; Status DC Remifentanil HCl (Ultiva) 2 mg STK-MED ONCE IV ; Start 03/14/17 at 13:59; Stop 03/14/17 at 14:00; Status DC Sodium Chloride (Sodium Chloride) 50 ml STK-MED ONCE IJ ; Start 03/14/17 at 13: 59; Stop 03/14/17 at 14:00; Status DC Desflurane (Suprane) 90 ml STK-MED ONCE IH ; Start 03/14/17 at 14:30; Stop 03/14 at 14:31; Status DC Propofol 100 ml @ As Directed STK-MED ONCE IV ; Start 03/14/17 at 14:44; Stop 03/14/17 at 14:45; Status DC Tamsulosin HCl (Flomax) 0.4 mg QHS PO Last administered on 03/15/17 21:07; Start 03/14/17 at 21:00 Nystatin (Mycostatin) 1 bassam BID TP Last administered on 03/16/17 09:00; Start 03/14/17 at 21:00 Vancomycin HCl 1 gm STK-MED ONCE .ROUTE ; Start 03/14/17 at 12:26; Stop at 11:30; Status DC Magnesium Citrate (Citroma) 296 ml PRN 1X PRN PO CONSTIPATION Last administered on 03/15/17 16:24; Start 03/15/17 at 16:15 Bisacodyl (Dulcolax Tab) 10 mg DAILY PO Last administered on 03/16/17 09:50; Start 03/16/17 at 09:00 Bisacodyl (Dulcolax Supp) 10 mg PRN DAILY PRN [place] CONSTIPATION; Start 03/15/17 at 16:15 Polyethylene Glycol (miraLAX PACKET) 17 gm DAILY PO ; Start 03/16/17 at 10:00 Methylnaltrexone [place] (Relistor) 12 mg 1X ONCE SQ Last administered on 03/16 09:50; Start 03/16/17 at 09:15; Stop 03/16/17 at 09:16; Status DC Active Scripts Active Synthroid (Levothyroxine Sodium) 88 Mcg Tablet 1 Tab PO DAILY [Metoprolol Tartrate] 25 MG Tablet 12.5 Mg PO BID Reported Oxycodon-Acetaminophen 2.5-325 (Oxycodone Hcl/Acetaminophen) 1 Each Tablet 1 Each PO PRN Q6HRS PRN Proair Hfa Inhaler (Albuterol Sulfate) 8.5 Gm Hfa.aer.ad 1 Puff INH PRN Q6HRS PRN Actos (Pioglitazone Hcl) 15 Mg Tablet 15 Mg PO DAILY Trulicity (Dulaglutide) 0.75 Mg/0.5 Ml Pen.injctr 0.75 Mg SQ Requip (Ropinirole Hcl) 0.5 Mg Tablet 0.5 Mg PO BID Vitamin D3 (Cholecalciferol (Vitamin D3)) 400 Unit Tablet 400 Unit PO DAILY Tudorza Pressair (Aclidinium [place]) 400 Mcg Aer.pow.ba 400 Mcg IH BID Brovana (Arformoterol Tartrate) 15 Mcg/2 Ml Vial.neb 15 Mcg IH Flovent 220MCG Hfa (Fluticasone Propionate) 12 Gm Aer.w.adap 12 Gm IH Vitamin E 1,000 Unit Capsule 1,000 Unit PO Haloperidol 5 Mg Tablet 5 Mg PO Lipitor (Atorvastatin Calcium) 80 Mg Tablet 80 Mg PO Valacyclovir (Valacyclovir Hcl) 1,000 Mg Tablet 1,000 Mg PO Oxybutynin Chloride 5 Mg Tablet 5 Mg PO Lisinopril 10 Mg Tablet 20 Mg PO Meloxicam 15 Mg Tablet 15 Mg PO Prilosec (Omeprazole) 10 Mg Capsule.dr 20 Mg PO Vitals/I & O Vital Sign - Last 24 Hours 03/15/17 03/15/17 03/15/17 03/15/17 12:31 12:46 15:00 15:44 Temp 98.1 98.1 Pulse 80 Resp 16 18 B/P (MAP) 91/35 (53) Pulse Ox 95 96 94 O2 Delivery Nasal Cannula Nasal Cannula Nasal Cannula Nasal Cannula O2 Flow Rate 3.0 2.0 2.5 3.0 03/15/17 03/15/17 03/15/17 03/15/17 16:26 19:00 19:44 19:59 Temp 97.4 97.4 Pulse 86 Resp 16 18 16 B/P (MAP) 103/42 (62) Pulse Ox 94 96 96 O2 Delivery Nasal Cannula Nasal Cannula Nasal Cannula O2 Flow Rate 2.0 3.0 3.0 03/15/17 03/15/17 03/15/17 03/15/17 20:00 21:00 21:08 23:00 Temp 98.2 98.2 Pulse 86 70 Resp 16 18 B/P (MAP) 103/42 105/40 (61) Pulse Ox 96 95 O2 Delivery Nasal Cannula Nasal Cannula O2 Flow Rate 3.0 3.0 03/16/17 03/16/17 03/16/17 03/16/17 00:29 02:58 03:00 03:58 Temp 98.1 98.1 Pulse 85 Resp 16 16 18 16 B/P (MAP) 90/49 (63) Pulse Ox 95 95 95 95 O2 Delivery Nasal Cannula Nasal Cannula O2 Flow Rate 3.0 3.0 03/16/17 03/16/17 03/16/17 03/16/17 05:54 06:24 07:00 08:00 Temp 97.9 97.9 Pulse 91 Resp 16 16 20 B/P (MAP) 102/44 (63) Pulse Ox 95 95 96 O2 Delivery Nasal Cannula Nasal Cannula Nasal Cannula Nasal Cannula O2 Flow Rate 3.0 3.0 3.0 3.0 03/16/17 03/16/17 03/16/17 03/16/17 08:23 08:23 09:00 09:32 Pulse 91 B/P (MAP) 102/44 Pulse Ox 97 97 O2 Delivery Nasal Cannula Nasal Cannula Nasal Cannula O2 Flow Rate 3.0 3.0 3.0 03/16/17 03/16/17 11:00 11:38 Temp 97.7 97.7 Pulse 93 Resp 18 B/P (MAP) 108/44 (65) Pulse Ox 94 O2 Delivery Nasal Cannula Nasal Cannula O2 Flow Rate 3.0 2.0 ZOILA KINGSLEY MD Mar 16, 2017 12:00
--- NOTE | 2017-03-16 13:57 | PATHOLOGY ---
PATHOLOGY REPORT * * * * * * * * FINAL DIAGNOSIS: "Lumbar decompression": - Fragments of fibrocartilage with degenerative changes. - Fragments of unremarkable bone. (SKM:mmluis angel; 03/16/2017) REPORT ELECTRONICALLY SIGNED BY: Félix Decker M.D. DATE/TIME: 03/16/2017 13:56 * * * * * * * * GROSS PATHOLOGY: Received in formalin labeled "Cynthia Alegria, lumbar disc and decompression" is a 4.5 x 2.3 x 0.5 mm aggregate of pink-gates ragged soft tissue. No gross abnormalities are identified. Assisted Living Nursing Director sections are submitted in cassette A1. ([facility] [place]; 03/15/2017) INITIAL CPT CODE(S): A; 86908 Professional services performed [place] [place] [address] Technical services performed by [facility] at [address] [place] [address]. SPECIMEN(S) RECEIVED: A.Lumbar disc and decompression CLINICAL HISTORY: Severe radiculopathy PATIENT: ALEXY ALEGRIALUISA Espinoza /AGE: 6 1950 (Age: 66) PATIENT #: [id number] ALT CASE #: SPECIMEN COLLECTION DATE: 03/14/2017 SPECIMEN RECEIVED DATE: 03/15/2017 [facility] - [address] [place] [address] - PHONE: [phone] * * * END OF REPORT * * *
[2017-03-16 15:01] VITALS: BP 113/49
[2017-03-16] MEDS: LIDOCAINE (700MG/PATCH) PATCH. TD PRN ×2 (15:22→20:02)
[2017-03-16] MEDS ORDERED: oxyCODONE/APAP 5/325 1 TAB TABLET PO PRN ×2 (15:45)
--- NOTE | 2017-03-16 16:06 | CONS ---
DATE OF CONSULTATION: 03/15/2017 ATTENDING PHYSICIAN: Dr. Pandey. The patient was seen at the request of Dr. Meek for rehab evaluation. HISTORY OF PRESENT ILLNESS: This is a 66-year-old female admitted on 03/09/2017 through the Emergency Room with sudden onset of severe lower back pain with radiation to right lower extremity. Pain was not controlled in the Emergency Room, required large doses of IV narcotics. She was admitted for further evaluation and treatment. 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 She has been on disability. She has not worked since s. The patient lives with her family in a [place], [place] home, had 2 steps to get in the house with railing. The patient is a former smoker, quit smoking about 5-10 years ago, smoked about a pack of cigarettes for about 40 years, 1 pack per day. The patient since admission was found with herniated disk in the lumbar area at L4-L5 with right paracentral focal disk herniation resulting in severe right-sided central spinal canal stenosis that impinged on right L5 nerve root. The patient underwent lumbar decompression laminectomy done on 03/14/2017. She admits continued lower back pain and right lower extremity weakness. Pain prior to the surgery is around 10. Right now it is around 6-7. The patient denies any trouble with urination, but admits some constipation since last Sunday. PHYSICAL EXAMINATION: Today revealed a middle-aged female. She is alert, oriented to time, place, person and circumstance and follows commands appropriately, moves all 4 extremities voluntarily where she had 4+/5 grade muscle strength with relatively increased weakness in right hip flexor. She had equal perception of touch and pinprick sensation bilaterally. Deep tendon reflexes are absent at both knees and left ankle, 1+ at right ankle. The patient had tenderness to palpation over right lumbar paraspinal muscles extending over to sacroiliac joint area and straight leg raising test is positive on the right side. The patient is independent with coming to a standing portion from sitting up and walking using a roller walker. She is using oxygen by nasal cannula. She admits more difficulty to get into the bed. She had dressing to her lumbar spine area. Dressing is clean and dry. She had painful limited movements of her lumbar spine. She had a crepitus on range of motion of both knee joints. She had some edema of her feet and legs. ASSESSMENT: A middle-aged female with recent onset herniated nucleus pulposus at L4-L5 with right lumbar radiculopathy, status post decompression laminectomy with some easing of her back pain, but continues to have pain with radiation to her right lower extremity with associated weakness mainly of right hip flexor. The patient with obesity, diabetes mellitus, degenerative joint disease of her knees, reflux esophagitis, paranoid schizophrenia, asthmatic bronchitis, aortic stenosis. RECOMMENDATIONS: Agree with the plan for physical therapy and occupational therapies. She may benefit from transfer to shelter care unit for continued care until she feels confident that she can get around and take care of herself and return home to ask for a screen to work on her bowel training program. Dr. Meek, appreciate asking me to participate in the care of this interesting patient. I will be glad to follow her with you as needed for her rehabilitation. CASSIDY ORNELAS MD DR: ONEL/mahesh JOB#: [id number] / [id number]
--- NOTE | 2017-03-16 18:48 | PDOC ---
PROGRESS NOTES Subjective Up with assist, needs SNU per Dr. Aguilar, still requesting pain meds often, bladder scan was 22 cc last tiffany and seems to have gotten over fear of post op retention, yeast rash still present but urine culture negative Objective Afebrile BP: [] General: anxious, unsteady Heart: RRR Lungs: CTA but breathing loudly Abd: obese, non distended Ext: edema still prominent in LE, still cannot lift legs easily SKIN: yeast rash Vital Signs Vital Signs Date Time Temp Pulse Resp B/P (MAP) Pulse Ox O2 Delivery O2 Flow Rate FiO2 03/16/17 15:32 Nasal Cannula 3.0 03/16/17 15:01 97.7 86 18 113/49 (70) 96 97.7 I & O Intake and Output 03/17/17 07:00 Output Total 500 ml Balance -500 ml Output Urine Total 500 ml # Bowel Movements 4 Assessment and Plan Problems Medical Problems: (1) Acute herniated disc- Post op day 2 microdiscectomy L4-5, deconditioned from pain prioor to surgery, Dr. Aguilar recommending SNU but denied by insurance so she will continue inpatient care until more steady, IV pain meds discontinued Status: Acute type II diabetes, chronic stable controlled hypothyroidism, chronic stable controlled schizophrenia, chronic stable but having anxiety hypertension, chronic stable controlled morbid obesity, affecting recovery in a negative way mixed urogenital urine culture, stop levaquin yeast vaginitis, panniculitis, continue nystatin constipation, she has multiple options for treatment COPD, she is on neb tx here with DuoNeb and budesonide but will transition back to Symbicort and Tudorza at discharge Problems: Prosper MEEHAN MD Mar 16, 2017 18:48
[2017-03-16 19:48] VITALS: BP 108/39
[2017-03-16] MEDS: HALOPERIDOL 5 MG TABLET. PO SCH (21:00)
--- NOTE | 2017-03-16 21:54 | OP ---
DATE OF SURGERY: 03/14/2017 PREOPERATIVE DIAGNOSIS: Herniated lumbar disc, L4-L5, right with severe right lumbar radiculopathy. POSTOPERATIVE DIAGNOSIS: Herniated lumbar disc, L4-L5, right with severe right lumbar radiculopathy. OPERATION PERFORMED: Hemilaminotomy and microdiscectomy, L4-L5, right. The operation was done with EMG monitoring, fluoroscopy, microscopic dissection. SURGEON: Ross Kingsley M.D. GATE ATTENDANT: Hemanth Gay MD, assisted with the surgery, assisted with the exposure, the discectomy as well as closure. Note: This operation was exceedingly difficult in addition to morbid obesity. The patient had suffered a chronic disc herniation, which was densely scarred down to the dura and the exiting root. Because of her size, our longest retractors were inadequate to reach the side of the hemilaminotomy without a larger skin incision and passing the retractors down below the skin surface to reach this region in order to retract adequately to perform the operation. OPERATIVE INDICATIONS: The patient is a very pleasant 66-year-old woman who has a long history of problems with her lower back and leg pain who developed an increase in her pain requiring hospitalization. She was virtually immobilized because of severe pain and on imaging studies, there was a very large disc herniation at L4-L5 on the right, which was associated with severe right lateral recess and right lateral central canal stenosis. I recommended lumbar microsurgery. I spoke with her about the surgery and the risks. She was medically cleared and she wished for us to go ahead. DESCRIPTION OF PROCEDURE: Following general endotracheal anesthesia, the patient was positioned prone on the Gonzalez table. We were careful to avoid any pressure points. Her lumbar region was prepped and draped in the standard fashion. Her legs were wrapped in Reji wraps for DVT prophylaxis. Monitoring was established. Vancomycin 1 gram was given preoperatively. An incision was made over the L4-L5 interspace using fluoroscopic guidance. We dissected down the skin and subcutaneous tissue and reflected the paraspinal muscles and used 2 sets of retractors, one to retract the adipose tissue back and then a second retractor, which we were able to place below the skin surface to reach the region of the paraspinal muscles and retract these adequately. The microscope was brought in and a high speed air drill was used to bur down a very generous hemilaminotomy. I then grasped and started to peel away thickened ligamentum flavum, but found that it was densely scarred to the underlying dura. There was a large chronic disc herniation and as I worked, I was able to peel much of the ligament away and expose disc material, which I began to tease back and remove. As we removed it, the dura began to become much better decompressed. I did perform a partial foraminotomy. I entered in the disc space and removed a good deal of disc material from here again to help decompress the canal and the exiting root. As I worked, the region became very well decompressed. We had no difficulty with any significant problems. There was no dural injury. The roots were gently handled throughout the operation and then at the end of this part of the procedure, the herniated disc fragment was removed. The dura was very well decompressed. I irrigated copiously during this time and I laid Gelfoam over the hemilaminotomy side. I then removed the retractors and obtained hemostasis in the muscle. I again irrigated and then closed the fascia with absorbable sutures. The subcutaneous tissue was irrigated and closed in multiple layers and the skin was closed with skin jean marie. The operation went very well and the patient was taken to recovery room in excellent condition. I was quite pleased with the surgery. ROSS KINGSLEY MD DR: ELAINA/mahesh JOB#: [id number] / [id number] CAMILA
[2017-03-16] MEDS: ATORVASTATIN CALCIUM 40 MG TABLET. PO SCH (22:18)
[2017-03-16] MEDS: TAMSULOSIN 0.4 MG CAP.ER.24H. PO SCH (22:18)
[2017-03-16 23:00] VITALS: BP 120/39
[2017-03-17 03:00] VITALS: BP 120/39
[2017-03-17] MEDS: oxyCODONE/APAP 5/325 1 TAB TABLET PO PRN ×2 (04:03→09:03)
[2017-03-17] MEDS: PANTOPRAZOLE 40 MG TABLET.DR. PO SCH (06:19)
[2017-03-17] MEDS: LEVOTHYROXINE 88 MCG TABLET PO SCH (06:20)
[2017-03-17 07:00] VITALS: BP 109/48
[2017-03-17] MEDS: BUDESONIDE 0.5 MG/2 ML NEBU. NEB SCH ×2 (07:06→19:23)
[2017-03-17] MEDS: IPRATRPIUM/ALBUTEROL 0.5/2.5MG 3 ML NEBU. NEB SCH ×4 (07:06→19:23)
[2017-03-17] MEDS: BISACODYL 5 MG TABLET.DR. PO SCH (09:00)
[2017-03-17] MEDS: CHOLECALCIFEROL (VITAMIN D3) 1,000 UNIT TABLET PO SCH (10:28)
[2017-03-17] MEDS: METOPROLOL TART IMMED RELEASE 25 MG TABLET. PO SCH ×2 (10:29→20:31)
[2017-03-17] MEDS: PIOGLITAZONE 15 MG TABLET. PO SCH (10:29)
[2017-03-17] MEDS: OXYBUTYNIN CHLORIDE 5 MG TABLET PO SCH ×2 (10:29→20:30)
[2017-03-17] MEDS: NYSTATIN 100,000 UNIT/GM TOPICAL CREAM 15GM TUBE. TP SCH ×2 (10:30→20:38)
[2017-03-17] MEDS: ENOXAPARIN 40 MG/0.4 ML SYRINGE. SQ SCH ×2 (10:30→20:32)
[2017-03-17] MEDS: rOPINIRole 0.25 MG TABLET. PO SCH ×2 (10:32→20:38)
[2017-03-17 11:00] VITALS: BP 114/49
--- NOTE | 2017-03-17 11:31 | PDOC ---
PROGRESS NOTES Subjective Subjective She feels like too much drugged and also having frequent stools that disturbed her sleep.She apparently took percocet 10/325 mg on out patient basis but now even with 5/325 mg she feels like that she is getting too much narcotics. Objective Objective Vital Signs Date Time Temp Pulse Resp B/P (MAP) Pulse Ox O2 Delivery O2 Flow Rate FiO2 03/17/17 10:49 95 Room Air 03/17/17 10:29 88 109/48 03/17/17 09:03 5.0 03/17/17 07:00 98.2 22 98.2 Physical Exam Physical Exam She is sitting up in chair and still concerned about how she is going to get up from couch if she goes home.She continues with pain with movement and relative weakness of right hip flexor muscles. Assessment Assessment Problems Medical Problems: (1) Acute herniated disc Status: Acute (2) Intractable back pain Status: Acute Plan Plan of Prison with home health when medically stable as her health insurance denied going to SNF or rehab unit. Comment Review of Relevant I have reviewed the following items hitesh (where applicable) has been applied. Labs Laboratory Tests Test 03/15/17 16:37 03/15/17 20:58 03/16/17 07:42 03/16/17 10:51 Glucose (Fingerstick) 178 mg/dL (70-99) 170 mg/dL (70-99) 108 mg/dL (70-99) 127 mg/dL (70-99) Test 03/16/17 16:20 03/16/17 20:44 03/17/17 07:21 Glucose (Fingerstick) 132 mg/dL (70-99) 173 mg/dL (70-99) 92 mg/dL (70-99) Laboratory Tests Test 03/16/17 16:20 03/16/17 20:44 03/17/17 07:21 Glucose (Fingerstick) 132 mg/dL (70-99) 173 mg/dL (70-99) 92 mg/dL (70-99) Microbiology 03/11/17 Urine Culture - Final, Complete 03/11/17 Urine Culture Result 1 (ADELAIDA) - Final, Complete Medications Current Medications Fentanyl Citrate (Fentanyl 2ml Vial) 75 mcg 1X ONCE IV Last administered on t 14:13; Start 03/09/17 at 14:00; Stop 03/09/17 at 14:01; Status DC Ketorolac Tromethamine (Toradol) 15 mg 1X ONCE IV Last administered on 14:13; Start 03/09/17 at 14:00; Stop 03/09/17 at 14:01; Status DC Morphine Sulfate 4 mg 1X ONCE IV Last administered on 03/09/17 15:40; Start 03/09/17 at 15:15; Stop 03/09/17 at 15:16; Status DC Morphine Sulfate 2 mg 1X ONCE IV Last administered on 03/09/17 17:34; Start 03/09/17 at 17:15; Stop 03/09/17 at 17:16; Status DC Morphine Sulfate 5 mg 1X ONCE IV Last administered on 03/09/17 19:23; Start 03/09/17 at 19:15; Stop 03/09/17 at 19:16; Status DC Haloperidol (Haldol) 5 mg HS PO Last administered on 03/16/17 21:00; Start at 21:00 Levothyroxine Sodium (Synthroid) 88 mcg DAILY06 PO Last administered on 06:20; Start 03/10/17 at 06:00 Lisinopril (Prinivil) 20 mg DAILY PO ; Start 03/10/17 at 09:00; Stop 03/10/17 at 11:01; Status DC Oxybutynin Chloride (Ditropan) 2.5 mg BID PO Last administered on 03/17/17 10: 29; Start 03/09/17 at 21:00 Pioglitazone HCl (Actos) 15 mg DAILY PO Last administered on 03/17/17 10:29; Start 03/10/17 at 09:00 Non-Formulary Medication 400 mcg BID IH ; Start 03/09/17 at 21:00; Status UNV Non-Formulary Medication 1 puff PRN Q6HRS PRN INH SHORTNESS OF BREATH; Start at 20:30; Status UNV Vitamin D (Vitamin D3) 500 unit DAILY PO Last administered on 03/17/17 10:28; Start 03/10/17 at 09:00 Oxycodone/ Acetaminophen (Percocet 5/325) 0.5 tab PRN Q6HRS PRN PO PAIN Last administered on 03/09/17 21:33; Start 03/09/17 at 20:45; Stop 03/09/17 at 22:49 ; Status DC Ropinirole HCl (Requip) 0.5 mg BID PO Last administered on 03/17/17 10:32; Start 03/09/17 at 21:00 Metoprolol Tartrate (Lopressor) 12 mg BID PO Last administered on 03/12/17 08: 34; Start 03/09/17 at 21:00; Stop 03/12/17 at 11:37; Status DC Atorvastatin Calcium (Lipitor) 80 mg QHS PO Last administered on 03/16/17 22: 18; Start 03/09/17 at 21:00 Budesonide (Pulmicort) 0.5 mg RTBID NEB Last administered on 03/17/17 07:06; Start 03/09/17 at 21:00 Naproxen (Naprosyn) 500 mg BIDWMEALS PO Last administered on 03/15/17 09:03; Start 03/09/17 at 21:00; Stop 03/15/17 at 16:09; Status DC Pantoprazole Sodium (Protonix) 40 mg DAILYAC PO Last administered on 03/17/17 06:19; Start 03/10/17 at 07:30 Enoxaparin Sodium (Lovenox 40mg Syringe) 40 mg Q24H SQ Last administered on 20:29; Start 03/09/17 at 21:00; Stop 03/12/17 at 10:11; Status DC Albuterol/ Ipratropium (Duoneb) 3 ml RTQID NEB Last administered on 03/17/17 10:48; Start 03/09/17 at 21:00 Albuterol Sulfate (Ventolin Neb Soln) 2.5 mg PRN Q6HRS PRN NEB SHORTNESS OF BREATH; Start 03/09/17 at 20:45 Oxycodone/ Acetaminophen (Percocet 5/325) 1 tab PRN Q6HRS PRN PO PAIN Last administered on 03/15/17 04:11; Start 03/09/17 at 23:00; Stop 03/16/17 at 15:46 ; Status DC Fentanyl Citrate (Fentanyl 2ml Vial) 50 mcg PRN Q3HRS PRN IV PAIN Last administered on 03/16/17 05:54; Start 03/09/17 at 23:00; Stop 03/16/17 at 12:45 ; Status DC Oxycodone/ Acetaminophen (Percocet 5/325) 2 tab PRN Q6HRS PRN PO PAIN Last administered on 03/16/17 15:08; Start 03/09/17 at 23:00; Stop 03/16/17 at 15:49 ; Status DC Info (Do NOT chart on this placeholder) 0.5 each 1X ONCE MC ; Start 03/10/17 at 00:00; Stop 03/10/17 at 00:01; Status UNV Influenza Virus Vaccine Quadrival (Fluarix Quad [id number] Syringe) 0.5 ml ONCE ONCE VAX IM Last administered on 03/12/17 14:29; Start 03/10/17 at 09:00; Stop 03/10/17 at 09:01; Status DC Sodium Chloride 500 ml @ 500 mls/hr 1X ONCE IV Last administered on 04:33; Start 03/10/17 at 04:00; Stop 03/10/17 at 04:59; Status DC Sodium Chloride 1,000 ml @ 90 mls/hr Q11H7M IV Last administered on 03/11/17 05:37; Start 03/10/17 at 04:00; Stop 03/11/17 at 09:40; Status DC Lidocaine (Lidoderm) 2 patch PRN DAILY PRN TD TOPICAL PAIN Last administered on 03/10/17 19:34; Start 03/10/17 at 19:30; Stop 03/10/17 at 20:08; Status DC Lidocaine (Lidoderm) 3 patch PRN DAILY PRN TD TOPICAL PAIN Last administered on 03/16/17 20:02; Start 03/10/17 at 20:15 Furosemide (Lasix) 20 mg 1X ONCE IVP Last administered on 03/10/17 20:15; Start 03/10/17 at 20:15; Stop 03/10/17 at 20:25; Status DC Lidocaine (Lidoderm) 1 patch 1X ONCE TD Last administered on 03/10/17 20:32; Start 03/10/17 at 20:15; Stop 03/10/17 at 20:25; Status DC Sodium Chloride 250 ml @ 250 mls/hr 1X ONCE IV Last administered on 05:00; Start 03/11/17 at 05:00; Stop 03/11/17 at 05:59; Status DC Phenazopyridine HCl (Pyridium) 200 mg TID PRN PO URINARY PAIN Last administered on 03/11/17 20:29; Start 03/11/17 at 10:00; Stop 03/13/17 at 09:59 ; Status DC Guaifenesin (Mucinex) 600 mg BID PO Last administered on 03/17/17 10:28; Start 03/11/17 at 10:00 Levofloxacin (Levaquin) 750 mg DAILY06 PO Last administered on 03/12/17 05:20 ; Start 03/11/17 at 10:00; Stop 03/12/17 at 11:35; Status DC Fluconazole (Diflucan) 150 mg 1X ONCE PO Last administered on 03/11/17 10:54 ; Start 03/11/17 at 10:00; Stop 03/11/17 at 10:01; Status DC Enoxaparin Sodium (Lovenox 40mg Syringe) 40 mg Q12HR SQ Last administered on 10:30; Start 03/12/17 at 12:00 Levofloxacin (Levaquin) 250 mg DAILY06 PO Last administered on 03/16/17 05:54 ; Start 03/13/17 at 06:00; Stop 03/16/17 at 18:49; Status DC Metoprolol Tartrate (Lopressor) 12.5 mg BID PO Last administered on 03/17/17 10:29; Start 03/12/17 at 21:00 Polyethylene Glycol (miraLAX PACKET) 17 gm DAILY PO Last administered on 09:32; Start 03/13/17 at 09:00; Stop 03/16/17 at 16:18; Status DC Furosemide (Lasix) 20 mg 1X ONCE IVP Last administered on 03/13/17 09:14; Start 03/13/17 at 09:00; Stop 03/13/17 at 09:01; Status DC Bacitracin 18740 unit/Sodium Chloride 1,000 ml @ 1,000 mls/hr 1X PERIOP ONCE IRR Last administered on 03/14/17 13:27; Start 03/14/17 at 06:00; Stop at 06:59; Status DC Fentanyl Citrate (Fentanyl 2ml Vial) 25 mcg PRN Q5MIN PRN IV MILD PAIN; Start 03/14/17 at 07:00; Stop 03/15/17 at 06:59; Status DC Fentanyl Citrate (Fentanyl 2ml Vial) 50 mcg PRN Q5MIN PRN IV MODERATE PAIN Last administered on 03/14/17 16:11; Start 03/14/17 at 07:00; Stop 03/15/17 at 06:59; Status DC Morphine Sulfate 1 mg PRN Q10MIN PRN IV SEVERE PAIN; Start 03/14/17 at 07:00; Stop 03/15/17 at 06:59; Status DC Ringer's Solution 1,000 ml @ 30 mls/hr Q24H IV Last administered on 03/14/17 12:09; Start 03/14/17 at 07:00; Stop 03/14/17 at 18:59; Status DC Lidocaine HCl (Xylocaine-Mpf 1% Vial) 2 ml PRN 1X PRN ID IV START; Start at 07:00; Stop 03/15/17 at 06:59; Status DC Hydromorphone HCl (Dilaudid) 0.5 mg PRN Q10MIN PRN IV SEV PAIN, Second choice Last administered on 03/14/17 16:37; Start 03/14/17 at 07:00; Stop 03/15/17 at 06:59; Status DC Prochlorperazine Edisylate (Compazine) 5 mg PACU PRN PRN IV NAUSEA, MRX1 Last administered on 03/14/17 16:03; Start 03/14/17 at 07:00; Stop 03/15/17 at 06:59 ; Status DC Midazolam HCl (Versed) 2 mg STK-MED ONCE .ROUTE ; Start 03/14/17 at 09:45; Stop 03/14/17 at 09:46; Status DC Remifentanil HCl (Ultiva) 2 mg STK-MED ONCE IV ; Start 03/14/17 at 09:45; Stop 03/14/17 at 09:46; Status DC Succinylcholine Chloride (Anectine) 200 mg STK-MED ONCE .ROUTE ; Start 03/14/17 at 09:47; Stop 03/14/17 at 09:48; Status DC Glycopyrrolate (Robinul) 1 mg STK-MED ONCE .ROUTE ; Start 03/14/17 at 09:48; Stop 03/14/17 at 09:49; Status DC Phenylephrine HCl (Sen-Synephrine Inj) 10 mg STK-MED ONCE .ROUTE ; Start at 09:48; Stop 03/14/17 at 09:49; Status DC Isoflurane (Isoflurane) 90 ml STK-MED ONCE IH ; Start 03/14/17 at 09:48; Stop at 09:49; Status DC Dexamethasone Sodium Phosphate (Decadron) 20 mg STK-MED ONCE .ROUTE ; Start at 09:48; Stop 03/14/17 at 09:49; Status DC Propofol 20 ml @ As Directed STK-MED ONCE IV ; Start 03/14/17 at 09:48; Stop at 09:49; Status DC Propofol 50 ml @ As Directed STK-MED ONCE IV ; Start 03/14/17 at 09:48; Stop at 09:49; Status DC Ondansetron HCl (Zofran) 4 mg STK-MED ONCE .ROUTE ; Start 03/14/17 at 09:48; Stop 03/14/17 at 09:49; Status DC Lidocaine HCl (Lidocaine Pf 2% Vial) 5 ml STK-MED ONCE .ROUTE ; Start 03/14/17 at 09:48; Stop 03/14/17 at 09:49; Status DC Gelatin (Gelfoam Size 100) 1 each STK-MED ONCE .ROUTE Last administered on 13:27; Start 03/14/17 at 09:05; Stop 03/14/17 at 10:05; Status DC Ketorolac Tromethamine (Toradol For Or Only) 60 mg STK-MED ONCE .ROUTE Last administered on 03/14/17 13:27; Start 03/14/17 at 09:05; Stop 03/14/17 at 10:05 ; Status DC Bupivacaine HCl/ Epinephrine Bitart (Sensorcaine-Epi 0.25%-1:071201 Mpf) 30 ml STK-MED ONCE .ROUTE Last administered on 03/14/17 13:27; Start 03/14/17 at 09: 05; Stop 03/14/17 at 10:05; Status DC Thrombin 20,000 unit STK-MED ONCE TP Last administered on 03/14/17 13:27; Start 03/14/17 at 09:05; Stop 03/14/17 at 10:06; Status DC Remifentanil HCl (Ultiva) 2 mg STK-MED ONCE IV ; Start 03/14/17 at 13:59; Stop 03/14/17 at 14:00; Status DC Sodium Chloride (Sodium Chloride) 50 ml STK-MED ONCE IJ ; Start 03/14/17 at 13: 59; Stop 03/14/17 at 14:00; Status DC Desflurane (Suprane) 90 ml STK-MED ONCE IH ; Start 03/14/17 at 14:30; Stop 03/14 at 14:31; Status DC Propofol 100 ml @ As Directed STK-MED ONCE IV ; Start 03/14/17 at 14:44; Stop 03/14/17 at 14:45; Status DC Tamsulosin HCl (Flomax) 0.4 mg QHS PO Last administered on 03/16/17 22:18; Start 03/14/17 at 21:00 Nystatin (Mycostatin) 1 bassam BID TP Last administered on 03/17/17 10:30; Start 03/14/17 at 21:00 Vancomycin HCl 1 gm STK-MED ONCE .ROUTE ; Start 03/14/17 at 12:26; Stop at 11:30; Status DC Magnesium Citrate (Citroma) 296 ml PRN 1X PRN PO CONSTIPATION Last administered on 03/15/17 16:24; Start 03/15/17 at 16:15 Bisacodyl (Dulcolax Tab) 10 mg DAILY PO Last administered on 03/16/17 09:50; Start 03/16/17 at 09:00; Stop 03/17/17 at 10:42; Status DC Bisacodyl (Dulcolax Supp) 10 mg PRN DAILY PRN [place] CONSTIPATION; Start 03/15/17 at 16:15 Polyethylene Glycol (miraLAX PACKET) 17 gm DAILY PO ; Start 03/16/17 at 10:00; Stop 03/16/17 at 16:20; Status DC Methylnaltrexone [place] (Relistor) 12 mg 1X ONCE SQ Last administered on 03/16 09:50; Start 03/16/17 at 09:15; Stop 03/16/17 at 09:16; Status DC Oxycodone/ Acetaminophen (Percocet 5/325) 2 tab PRN Q4HRS PRN PO PAIN Last administered on 03/16/17 19:51; Start 03/16/17 at 15:45; Stop 03/17/17 at 10:40 ; Status DC Oxycodone/ Acetaminophen (Percocet 5/325) 2 tab PRN Q4HRS PRN PO PAIN; Start at 15:45; Stop 03/16/17 at 15:48; Status DC Oxycodone/ Acetaminophen (Percocet 5/325) 1 tab PRN Q4HRS PRN PO PAIN Last administered on 03/17/17 09:03; Start 03/16/17 at 16:30; Stop 03/17/17 at 10:40 ; Status DC Acetaminophen/ Hydrocodone Bitart (Lortab 5/325) 1 tab PRN Q4HRS PRN PO PAIN; Start 03/17/17 at 10:45 Bisacodyl (Dulcolax Tab) 10 mg PRN DAILY PRN PO CONSTIPATION; Start 03/18/17 at 09:00 Active Scripts Active Synthroid (Levothyroxine Sodium) 88 Mcg Tablet 1 Tab PO DAILY [Metoprolol Tartrate] 25 MG Tablet 12.5 Mg PO BID Reported Oxycodon-Acetaminophen 2.5-325 (Oxycodone Hcl/Acetaminophen) 1 Each Tablet 1 Each PO PRN Q6HRS PRN Proair Hfa Inhaler (Albuterol Sulfate) 8.5 Gm Hfa.aer.ad 1 Puff INH PRN Q6HRS PRN Actos (Pioglitazone Hcl) 15 Mg Tablet 15 Mg PO DAILY Trulicity (Dulaglutide) 0.75 Mg/0.5 Ml Pen.injctr 0.75 Mg SQ Requip (Ropinirole Hcl) 0.5 Mg Tablet 0.5 Mg PO BID Vitamin D3 (Cholecalciferol (Vitamin D3)) 400 Unit Tablet 400 Unit PO DAILY Tudorza Pressair (Aclidinium [place]) 400 Mcg Aer.pow.ba 400 Mcg IH BID Winniea (Arformoterol Tartrate) 15 Mcg/2 Ml Vial.neb 15 Mcg IH Flovent 220MCG Hfa (Fluticasone Propionate) 12 Gm Aer.w.adap 12 Gm IH Vitamin E 1,000 Unit Capsule 1,000 Unit PO Haloperidol 5 Mg Tablet 5 Mg PO Lipitor (Atorvastatin Calcium) 80 Mg Tablet 80 Mg PO Valacyclovir (Valacyclovir Hcl) 1,000 Mg Tablet 1,000 Mg PO Oxybutynin Chloride 5 Mg Tablet 5 Mg PO Lisinopril 10 Mg Tablet 20 Mg PO Meloxicam 15 Mg Tablet 15 Mg PO Prilosec (Omeprazole) 10 Mg Capsule.dr 20 Mg PO Vitals/I & O Vital Sign - Last 24 Hours 03/16/17 03/16/17 03/16/17 03/16/17 11:38 12:26 15:01 15:08 Temp 97.7 97.7 Pulse 86 Resp 18 B/P (MAP) 113/49 (70) Pulse Ox 98 96 O2 Delivery Nasal Cannula Nasal Cannula Nasal Cannula Nasal Cannula O2 Flow Rate 2.0 3.0 3.0 3.0 03/16/17 03/16/17 03/16/17 03/16/17 15:32 19:48 19:51 20:00 Temp 97.5 97.5 Pulse 90 Resp 16 16 B/P (MAP) 108/39 (62) Pulse Ox 96 96 O2 Delivery Nasal Cannula Nasal Cannula Nasal Cannula Nasal Cannula O2 Flow Rate 3.0 3.0 3.0 3.0 03/16/17 03/16/17 03/16/17 03/16/17 20:37 20:56 21:00 23:00 Temp 96.8 96.8 Pulse 90 79 Resp 16 18 B/P (MAP) 108/39 120/39 (66) Pulse Ox 98 98 91 O2 Delivery Nasal Cannula Nasal Cannula O2 Flow Rate 3.0 3.0 03/17/17 03/17/17 03/17/17 03/17/17 03:00 04:03 05:03 07:00 Temp 96.8 98.2 96.8 98.2 Pulse 79 88 Resp 18 16 16 22 B/P (MAP) 120/39 (66) 109/48 (68) Pulse Ox 91 91 91 96 O2 Delivery Nasal Cannula Nasal Cannula Nasal Cannula Room Air O2 Flow Rate 3.0 3.0 3.0 03/17/17 03/17/17 03/17/17 03/17/17 07:07 09:03 10:29 10:49 Pulse 88 B/P (MAP) 109/48 Pulse Ox 95 95 O2 Delivery Room Air Nasal Cannula Room Air O2 Flow Rate 5.0 CASSIDY ORNELAS MD Mar 17, 2017 11:31
--- NOTE | 2017-03-17 11:55 | PDOC ---
SUBJECTIVE Subjective Pt very upset this morning about Rehab/SNF being denied. Although PT note states that she can walk 50' independently with her cane, pt states that she can go only from bedside commode to chair. Discussed that we can try to appeal ; will work with SW. Pain pretty well controlled; felt very drugged this morning so pain medications have been changed from Oxycodone to hydrocodone OBJECTIVE Vital Signs Vital Signs Date Time Temp Pulse Resp B/P (MAP) Pulse Ox O2 Delivery O2 Flow Rate FiO2 03/17/17 10:49 95 Room Air 03/17/17 10:29 88 109/48 03/17/17 09:03 Nasal Cannula 5.0 03/17/17 07:07 95 Room Air 03/17/17 07:00 98.2 88 22 109/48 (68) 96 Room Air 98.2 03/17/17 05:03 16 91 Nasal Cannula 3.0 03/17/17 04:03 16 91 Nasal Cannula 3.0 03/17/17 03:00 96.8 79 18 120/39 (66) 91 Nasal Cannula 3.0 96.8 03/16/17 23:00 96.8 79 18 120/39 (66) 91 96.8 03/16/17 21:00 90 108/39 03/16/17 20:56 16 98 Nasal Cannula 3.0 03/16/17 20:37 98 Nasal Cannula 3.0 03/16/17 20:00 Nasal Cannula 3.0 03/16/17 19:51 16 96 Nasal Cannula 3.0 03/16/17 19:48 97.5 90 16 108/39 (62) 96 Nasal Cannula 3.0 97.5 03/16/17 15:32 Nasal Cannula 3.0 03/16/17 15:08 Nasal Cannula 3.0 03/16/17 15:01 97.7 86 18 113/49 (70) 96 Nasal Cannula 3.0 97.7 03/16/17 12:26 98 Nasal Cannula 3.0 PHYSICAL EXAM Physical Exam GEN: obese, NAD, AOx3, wearing NC, slightly dyspneic HEENT: MMM, EOMI, no scleral icterus/injection Cardiac: RRR, systolic ejection murmur heard best PABLO border Lungs: rhonchi left upper and lower lobes Ext: 2+ pitting edema LE bilaterally Nuero: CN2-12 GI ASSESSMENT/PLAN Assessment/Plan Pt is a 66yo CF admitted for herniated disc 1)Acute herniated disc- Post op day 3 microdiscectomy L4-5. Pt states she is unable to ambulate independently. Was denied SNF/Rehab; will see if we can appeal with SW. Pain medication changed to hydrocodone due to pt feeling drugged 2)type II diabetes, chronic stable controlled. HbA1C currently pending. Pt continued on Actos 15mg 3)hypothyroidism- last TSH 09/30 was 0.20. Repeat pending. Pt continued on levothyroxine 88mcg 4)schizophrenia, chronic stable. Pt continued on Haldol 5mg QHS 5)hypertension, chronic stable controlled. Pt continued on Metoprolol 12.5mg BID 6)morbid obesity, affecting recovery in a negative way 7)mixed urogenital urine culture, stop levaquin 8)yeast vaginitis, panniculitis, continue nystatin 9)constipation, she has multiple options for treatment 10)COPD, she is on neb tx here with DuoNeb and budesonide but will transition back to Symbicort and Tudorza at discharge. Some rhonchi heard today with increased edema. Will get CXR 11)GERD- continue protonix 40mg 12)Leukocytosis- possibly reactive? Pt remains afebrile. Repeat pending in am 13)Hyponatremia- repeat pending in AM 14)CKD- stable Problems: COMMENT Lab Laboratory Tests Test 03/16/17 16:20 03/16/17 20:44 03/17/17 07:21 03/17/17 11:16 Glucose (Fingerstick) 132 mg/dL (70-99) 173 mg/dL (70-99) 92 mg/dL (70-99) 162 mg/dL (70-99) EUSEBIO DOHERTY MD Mar 17, 2017 11:54
[2017-03-17] MEDS: HYDROcodone/APAP 5/325MG 1 TAB TABLET PO PRN ×3 (14:59→23:27)
[2017-03-17 15:00] VITALS: BP 112/50
--- NOTE | 2017-03-17 18:49 | CONS ---
DATE OF CONSULTATION: 03/10/2017 REASON FOR CONSULTATION: Back and right leg pain. HISTORY OF PRESENT ILLNESS: The patient is a pleasant 66-year-old woman who has a long history of problems with her lower back, which radiates into her right leg. She developed marked increase in her pain a day or two prior to admission to the hospital. She said that she was unable to control her pain and was seen in the Emergency Room, and was admitted for further evaluation and pain control. The patient reports weakness in her right leg, primarily due to pain. She also said she had difficulty reaching the bathroom in time again because of severe back and right leg pain. There is no significant problem on the left side. Since the problem has started, she has been unable to ambulate because of pain. PAST MEDICAL HISTORY: Includes morbid obesity, hypothyroidism, type 2 diabetes, reflux esophagitis, paranoid schizophrenia, asthma, aortic stenosis. PAST SURGICAL HISTORY: Includes splenectomy, cholecystectomy, hernia repair, tubal ligation, partial liver lobectomy, spleen surgery. FAMILY HISTORY: Significant for heart disease with her mother. SOCIAL HISTORY: She is a former smoker, but quit 5-10 years ago. She did smoke 1 pack per day for 40 years. She does not use alcohol. She lives with her and son. MEDICATIONS: See the MRAD, they are noncontributory. REVIEW OF SYSTEMS: Of 12 points was performed and was negative other than outlined above. PHYSICAL EXAMINATION: GENERAL: She is in moderate distress because of back and right leg pain, supine in bed. She is morbidly obese. HEENT: Normocephalic, atraumatic. NECK: Supple. NEUROLOGIC: Her strength was 5/5 in her upper extremities and her left lower extremity. In her right lower extremity, hip flexion and quadriceps were 1-2+/5 because of the severe pain. She did have normal plantar and dorsiflexion in her right foot. On sensory testing, there was a decrease in light touch across the lateral right leg and dorsum of her right foot. Straight leg raising on the left side was negative. Straight leg raising on the right was markedly positive with back, right hip and right leg pain at a few degrees above horizontal. Examination of the lumbar spine, there was severe tenderness in the lower lumbar spine. She was morbidly obese and it was difficult to actually palpate the spine, but through the adipose tissue she was experiencing marked pain. IMAGING: I reviewed a lumbar MRI scan. On that study, there is a very large disc herniation, which extends superiorly and is largely at the level of the disc and it measures 2 cm in greatest diameter. It results in severe right-sided central canal stenosis and right lateral recess stenosis and appears to be markedly compressing the right L5 root. IMPRESSION: This patient has a severe lumbar radiculopathy from a herniated lumbar disc. Surgery would be difficult because of her morbid obesity; however, she is very frustrated with intractable pain and I do feel that although difficult, surgery could be performed relatively safely assuming that she can be medically stabilized. I discussed all this with the patient and with Dr. Burnham. I appreciate asking us to see her. ZOILA KINGSLEY MD DR: ELAINA/mahesh JOB#: [id number] / [id number] CAMILA
[2017-03-17 19:52] VITALS: BP 115/45
[2017-03-17] MEDS: TAMSULOSIN 0.4 MG CAP.ER.24H. PO SCH (20:30)
[2017-03-17] MEDS: HALOPERIDOL 5 MG TABLET. PO SCH (20:30)
[2017-03-17] MEDS: ATORVASTATIN CALCIUM 40 MG TABLET. PO SCH (20:30)
[2017-03-17] MEDS: LIDOCAINE (700MG/PATCH) PATCH. TD PRN (20:39)
[2017-03-17 23:16] VITALS: BP 112/46
[2017-03-18 03:19] VITALS: BP 115/40
[2017-03-18] MEDS: HYDROcodone/APAP 5/325MG 1 TAB TABLET PO PRN ×6 (03:33→23:37)
[2017-03-18 05:32] LABS: BASO % 0 % (0-3); EOS % 3 % (0-3); HEMATOCRIT 25.8 % (36.0-47.0); HEMOGLOBIN 8.8 g/dL (12.0-15.5); LYMPH # 1.7 x10^3/uL (1.0-4.8); LYMPH % 17 % (24-48); MEAN CORPUSCULAR HEMOGLOBIN 33 pg (25-35); MEAN CORPUSCULAR HGB CONC 34 g/dL (31-37); MEAN CORPUSCULAR VOLUME 96 fL (79-100); MONO % 15 % (0-9); NEUT % 65 % (31-73); PLATELET COUNT 336 x10^3/uL (140-400); RED CELL DISTRIBUTION WIDTH 14.9 % (11.5-14.5)
[2017-03-18 05:42] LABS: CALCIUM 8.9 mg/dL (8.5-10.1); GFR 55.5; POTASSIUM 4.4 mmol/L (3.5-5.1)
[2017-03-18] MEDS: PANTOPRAZOLE 40 MG TABLET.DR. PO SCH (05:58)
[2017-03-18] MEDS: LEVOTHYROXINE 88 MCG TABLET PO SCH (05:58)
[2017-03-18 07:00] VITALS: BP 113/53
[2017-03-18] MEDS: BUDESONIDE 0.5 MG/2 ML NEBU. NEB SCH ×2 (07:15→20:12)
[2017-03-18] MEDS: IPRATRPIUM/ALBUTEROL 0.5/2.5MG 3 ML NEBU. NEB SCH ×4 (07:15→20:12)
--- NOTE | 2017-03-18 07:56 | RAD ---
AP portable chest. History: Rhonchi, dyspnea AP view was taken of the chest. Heart is normal in size. There is a granuloma on the right. Lungs are free of confluent infiltrates. There is no definite effusion. Impression: 1. No acute infiltrates.
[2017-03-18] MEDS ORDERED: BISACODYL 5 MG TABLET.DR. PO PRN (09:00)
[2017-03-18] MEDS: METOPROLOL TART IMMED RELEASE 25 MG TABLET. PO SCH ×2 (09:00→21:27)
[2017-03-18] MEDS: ENOXAPARIN 40 MG/0.4 ML SYRINGE. SQ SCH ×2 (09:00→21:24)
--- NOTE | 2017-03-18 10:10 | PDOC ---
SUBJECTIVE Subjective Pt says that she is feeling a little better this morning. Has been considering the possibility of going home; thinking that she might be able to, but her does not think that she can. No other complaints today OBJECTIVE Vital Signs Vital Signs Date Time Temp Pulse Resp B/P (MAP) Pulse Ox O2 Delivery O2 Flow Rate FiO2 03/18/17 07:43 16 Nasal Cannula 3.0 03/18/17 07:17 97 Nasal Cannula 3.0 03/18/17 07:00 97.2 81 20 113/53 (73) 97 Room Air 97.2 03/18/17 04:35 20 97 Nasal Cannula 2.0 03/18/17 03:33 20 97 Nasal Cannula 2.0 03/18/17 03:19 97.9 77 18 115/40 (65) 97 Nasal Cannula 3.0 97.9 03/17/17 23:27 20 95 Nasal Cannula 3.0 03/17/17 23:16 98.3 75 18 112/46 (68) 95 Nasal Cannula 3.0 98.3 03/17/17 20:31 85 115/45 03/17/17 19:52 98.3 85 18 115/45 (68) 97 Nasal Cannula 3.0 98.3 03/17/17 19:39 20 98 Nasal Cannula 2.0 03/17/17 19:30 Nasal Cannula 2.0 03/17/17 19:25 Room Air 03/17/17 19:24 Room Air 03/17/17 16:11 Room Air 03/17/17 15:00 97.2 60 20 112/50 (70) 98 97.2 03/17/17 14:59 16 Nasal Cannula 2.0 03/17/17 11:00 98.2 62 22 114/49 (70) 98 Room Air 98.2 03/17/17 10:49 95 Room Air 03/17/17 10:29 88 109/48 PHYSICAL EXAM Physical Exam GEN: obese, NAD, AOx3 HEENT: MMM, EOMI, no scleral icterus/injection Cardiac: RRR, systolic ejection murmur heard best PABLO border Lungs: CTAB, regular breathing rate and effort Ext: 3+ pitting edema LE bilaterally Nuero: CN2-12 GI ASSESSMENT/PLAN Assessment/Plan Pt is a 66yo CF admitted for herniated disc 1)Acute herniated disc- Post op day 3 microdiscectomy L4-5. Pt states she is unable to ambulate independently. Was denied SNF/Rehab; will see if we can appeal with SW. Pain medication changed to hydrocodone due to pt feeling drugged 2)type II diabetes, chronic stable controlled. HbA1C this admission 5.9. Pt continued on Actos 15mg 3)hypothyroidism- TSH this admission elevated. Will increase dose of Levothyroxine to 100mcg. 4)schizophrenia, chronic stable. Pt continued on Haldol 5mg QHS 5)hypertension, chronic stable controlled. Pt continued on Metoprolol 12.5mg BID 6)morbid obesity, affecting recovery in a negative way 7)mixed urogenital urine culture, stopped levaquin 8)yeast vaginitis, panniculitis, continue nystatin 9)constipation, she has multiple options for treatment 10)COPD, she is on neb tx here with DuoNeb and budesonide but will transition back to Symbicort and Tudorza at discharge. 11)GERD- continue protonix 40mg 12)Leukocytosis- likely reactive, now back to normal. 13)Hyponatremia- feel that pt is more fluid positive with increased edema, etc. Will give dose of Lasix and recheck in am 14)CKD- stable 15)Anemia- likely worsened from surgery. Will start ferrous sulfate. No active bleeding. Problems: COMMENT Lab Laboratory Tests Test 03/17/17 11:16 03/17/17 16:44 03/17/17 20:37 03/18/17 04:55 Glucose (Fingerstick) 162 mg/dL (70-99) 173 mg/dL (70-99) 205 mg/dL (70-99) White Blood Count 10.0 x10^3/uL (4.0-11.0) Red Blood Count 2.70 x10^6/uL (3.50-5.40) Hemoglobin 8.8 g/dL (12.0-15.5) Hematocrit 25.8 % (36.0-47.0) Mean Corpuscular Volume 96 fL (79-100) Mean Corpuscular Hemoglobin 33 pg (25-35) Mean Corpuscular Hemoglobin Concent 34 g/dL (31-37) Red Cell Distribution Width 14.9 % (11.5-14.5) Platelet Count 336 x10^3/uL (140-400) Neutrophils (%) (Auto) 65 % (31-73) Lymphocytes (%) (Auto) 17 % (24-48) Monocytes (%) (Auto) 15 % (0-9) Eosinophils (%) (Auto) 3 % (0-3) Basophils (%) (Auto) 0 % (0-3) Neutrophils # (Auto) 6.4 x10^3uL (1.8-7.7) Lymphocytes # (Auto) 1.7 x10^3/uL (1.0-4.8) Monocytes # (Auto) 1.5 x10^3/uL (0.0-1.1) Eosinophils # (Auto) 0.3 x10^3/uL (0.0-0.7) Basophils # (Auto) 0.0 x10^3/uL (0.0-0.2) Sodium Level 126 mmol/L (136-145) Potassium Level 4.4 mmol/L (3.5-5.1) Chloride Level 92 mmol/L (98-107) Carbon Dioxide Level 30 mmol/L (21-32) Anion Gap 4 (6-14) Blood Urea Nitrogen 17 mg/dL (7-20) Creatinine 1.0 mg/dL (0.6-1.0) Estimated GFR (Cockcroft-Gault) 55.5 Glucose Level 109 mg/dL (70-99) Calcium Level 8.9 mg/dL (8.5-10.1) EUSEBIO DOHERTY MD Mar 18, 2017 10:10
[2017-03-18] MEDS: rOPINIRole 0.25 MG TABLET. PO SCH ×2 (10:16→21:26)
[2017-03-18] MEDS: CHOLECALCIFEROL (VITAMIN D3) 1,000 UNIT TABLET PO SCH (10:16)
[2017-03-18] MEDS: OXYBUTYNIN CHLORIDE 5 MG TABLET PO SCH ×2 (10:16→21:25)
[2017-03-18] MEDS: PIOGLITAZONE 15 MG TABLET. PO SCH (10:16)
[2017-03-18] MEDS: NYSTATIN 100,000 UNIT/GM TOPICAL CREAM 15GM TUBE. TP SCH ×2 (10:22→21:27)
[2017-03-18] MEDS ORDERED: FUROSEMIDE 40 MG TABLET. PO ONE (10:30)
[2017-03-18] MEDS: FERROUS SULFATE 325 MG TABLET. PO SCH (10:32)
[2017-03-18 11:00] VITALS: BP 120/39
[2017-03-18 15:00] VITALS: BP 131/58
[2017-03-18 19:00] VITALS: BP 125/42
[2017-03-18] MEDS: TAMSULOSIN 0.4 MG CAP.ER.24H. PO SCH (21:25)
[2017-03-18] MEDS: HALOPERIDOL 5 MG TABLET. PO SCH (21:25)
[2017-03-18] MEDS: ATORVASTATIN CALCIUM 40 MG TABLET. PO SCH (21:26)
[2017-03-18 23:00] VITALS: BP 118/41
[2017-03-19 03:30] VITALS: BP 119/53
[2017-03-19] MEDS: HYDROcodone/APAP 5/325MG 1 TAB TABLET PO PRN ×4 (03:36→15:45)
[2017-03-19 04:49] LABS: CALCIUM 8.7 mg/dL (8.5-10.1); GFR 55.5; POTASSIUM 3.8 mmol/L (3.5-5.1)
[2017-03-19] MEDS: PANTOPRAZOLE 40 MG TABLET.DR. PO SCH (05:56)
[2017-03-19] MEDS: LIDOCAINE (700MG/PATCH) PATCH. TD PRN (06:03)
[2017-03-19 07:00] VITALS: BP 116/38
[2017-03-19] MEDS ORDERED: LEVOTHYROXINE 100 MCG TABLET PO SCH (07:00)
[2017-03-19] MEDS: FERROUS SULFATE 325 MG TABLET. PO SCH (07:51)
[2017-03-19] MEDS: OXYBUTYNIN CHLORIDE 5 MG TABLET PO SCH (07:51)
[2017-03-19] MEDS: CHOLECALCIFEROL (VITAMIN D3) 1,000 UNIT TABLET PO SCH (07:52)
[2017-03-19] MEDS: rOPINIRole 0.25 MG TABLET. PO SCH (07:52)
[2017-03-19] MEDS: PIOGLITAZONE 15 MG TABLET. PO SCH (07:52)
[2017-03-19] MEDS: ENOXAPARIN 40 MG/0.4 ML SYRINGE. SQ SCH (07:56)
[2017-03-19] MEDS: IPRATRPIUM/ALBUTEROL 0.5/2.5MG 3 ML NEBU. NEB SCH ×3 (08:20→16:00)
[2017-03-19] MEDS: BUDESONIDE 0.5 MG/2 ML NEBU. NEB SCH (08:20)
[2017-03-19] MEDS ORDERED: FERR325T72 PO (08:38)
[2017-03-19] MEDS ORDERED: NYST15CR TP (08:38)
[2017-03-19] MEDS ORDERED: LIDO700A39 TD (08:38)
[2017-03-19] MEDS ORDERED: TAMS0.4C97 PO (08:38)
[2017-03-19] MEDS ORDERED: HYDR-2758 PO (08:38)
[2017-03-19] MEDS ORDERED: BISA5TAB4 PO (08:38)
[2017-03-19] MEDS ORDERED: LEVO100T PO (08:38)
[2017-03-19] MEDS ORDERED: MAGN296S4 PO (08:38)
[2017-03-19] MEDS: METOPROLOL TART IMMED RELEASE 25 MG TABLET. PO SCH (09:00)
--- NOTE | 2017-03-19 09:48 | PDOC ---
PROGRESS NOTES Subjective Subjective She feels better despite continued weakness of right hip flexors.Nursing reports of blood in her urine. Objective Objective Vital Signs Date Time Temp Pulse Resp B/P (MAP) Pulse Ox O2 Delivery O2 Flow Rate FiO2 03/19/17 08:51 16 Nasal Cannula 3.0 03/19/17 08:44 96 03/19/17 07:00 97.9 75 116/38 (64) 97.9 Physical Exam Physical Exam She is alert and comfortable and she is anemic and continues with relative weakness of right hip flexors. Assessment Assessment Problems Medical Problems: (1) Acute herniated disc Status: Acute (2) Intractable back pain Status: Acute Plan Plan of Care To check urine analysis and to stop lovonox and home with home health follow up when medically stable. Comment Review of Relevant I have reviewed the following items hitesh (where applicable) has been applied. Labs Laboratory Tests Test 03/17/17 11:16 03/17/17 16:44 03/17/17 20:37 03/18/17 04:55 Glucose (Fingerstick) 162 mg/dL (70-99) 173 mg/dL (70-99) 205 mg/dL (70-99) White Blood Count 10.0 x10^3/uL (4.0-11.0) Red Blood Count 2.70 x10^6/uL (3.50-5.40) Hemoglobin 8.8 g/dL (12.0-15.5) Hematocrit 25.8 % (36.0-47.0) Mean Corpuscular Volume 96 fL (79-100) Mean Corpuscular Hemoglobin 33 pg (25-35) Mean Corpuscular Hemoglobin Concent 34 g/dL (31-37) Red Cell Distribution Width 14.9 % (11.5-14.5) Platelet Count 336 x10^3/uL (140-400) Neutrophils (%) (Auto) 65 % (31-73) Lymphocytes (%) (Auto) 17 % (24-48) Monocytes (%) (Auto) 15 % (0-9) Eosinophils (%) (Auto) 3 % (0-3) Basophils (%) (Auto) 0 % (0-3) Neutrophils # (Auto) 6.4 x10^3uL (1.8-7.7) Lymphocytes # (Auto) 1.7 x10^3/uL (1.0-4.8) Monocytes # (Auto) 1.5 x10^3/uL (0.0-1.1) Eosinophils # (Auto) 0.3 x10^3/uL (0.0-0.7) Basophils # (Auto) 0.0 x10^3/uL (0.0-0.2) Sodium Level 126 mmol/L (136-145) Potassium Level 4.4 mmol/L (3.5-5.1) Chloride Level 92 mmol/L (98-107) Carbon Dioxide Level 30 mmol/L (21-32) Anion Gap 4 (6-14) Blood Urea Nitrogen 17 mg/dL (7-20) Creatinine 1.0 mg/dL (0.6-1.0) Estimated GFR (Cockcroft-Gault) 55.5 Glucose Level 109 mg/dL (70-99) Calcium Level 8.9 mg/dL (8.5-10.1) Test 03/18/17 07:02 03/18/17 15:12 03/19/17 03:42 Glucose (Fingerstick) 121 mg/dL (70-99) 131 mg/dL (70-99) Sodium Level 129 mmol/L (136-145) Potassium Level 3.8 mmol/L (3.5-5.1) Chloride Level 93 mmol/L (98-107) Carbon Dioxide Level 30 mmol/L (21-32) Anion Gap 6 (6-14) Blood Urea Nitrogen 14 mg/dL (7-20) Creatinine 1.0 mg/dL (0.6-1.0) Estimated GFR (Cockcroft-Gault) 55.5 Glucose Level 145 mg/dL (70-99) Calcium Level 8.7 mg/dL (8.5-10.1) Laboratory Tests Test 03/18/17 15:12 03/19/17 03:42 Glucose (Fingerstick) 131 mg/dL (70-99) Sodium Level 129 mmol/L (136-145) Potassium Level 3.8 mmol/L (3.5-5.1) Chloride Level 93 mmol/L (98-107) Carbon Dioxide Level 30 mmol/L (21-32) Anion Gap 6 (6-14) Blood Urea Nitrogen 14 mg/dL (7-20) Creatinine 1.0 mg/dL (0.6-1.0) Estimated GFR (Cockcroft-Gault) 55.5 Glucose Level 145 mg/dL (70-99) Calcium Level 8.7 mg/dL (8.5-10.1) Microbiology 03/11/17 Urine Culture - Final, Complete 03/11/17 Urine Culture Result 1 (ADELAIDA) - Final, Complete Medications Current Medications Fentanyl Citrate (Fentanyl 2ml Vial) 75 mcg 1X ONCE IV Last administered on 14:13; Start 03/09/17 at 14:00; Stop 03/09/17 at 14:01; Status DC Ketorolac Tromethamine (Toradol) 15 mg 1X ONCE IV Last administered on 14:13; Start 03/09/17 at 14:00; Stop 03/09/17 at 14:01; Status DC Morphine Sulfate 4 mg 1X ONCE IV Last administered on 03/09/17 15:40; Start 03/09/17 at 15:15; Stop 03/09/17 at 15:16; Status DC Morphine Sulfate 2 mg 1X ONCE IV Last administered on 03/09/17 17:34; Start 03/09/17 at 17:15; Stop 03/09/17 at 17:16; Status DC Morphine Sulfate 5 mg 1X ONCE IV Last administered on 03/09/17 19:23; Start 03/09/17 at 19:15; Stop 03/09/17 at 19:16; Status DC Haloperidol (Haldol) 5 mg HS PO Last administered on 03/18/17 21:25; Start at 21:00 Levothyroxine Sodium (Synthroid) 88 mcg DAILY06 PO Last administered on 05:58; Start 03/10/17 at 06:00; Stop 03/18/17 at 10:09; Status DC Lisinopril (Prinivil) 20 mg DAILY PO ; Start 03/10/17 at 09:00; Stop 03/10/17 at 11:01; Status DC Oxybutynin Chloride (Ditropan) 2.5 mg BID PO Last administered on 03/19/17 07: 51; Start 03/09/17 at 21:00 Pioglitazone HCl (Actos) 15 mg DAILY PO Last administered on 03/19/17 07:52; Start 03/10/17 at 09:00 Non-Formulary Medication 400 mcg BID IH ; Start 03/09/17 at 21:00; Status UNV Non-Formulary Medication 1 puff PRN Q6HRS PRN INH SHORTNESS OF BREATH; Start at 20:30; Status UNV Vitamin D (Vitamin D3) 500 unit DAILY PO Last administered on 03/19/17 07:52; Start 03/10/17 at 09:00 Oxycodone/ Acetaminophen (Percocet 5/325) 0.5 tab PRN Q6HRS PRN PO PAIN Last administered on 03/09/17 21:33; Start 03/09/17 at 20:45; Stop 03/09/17 at 22:49 ; Status DC Ropinirole HCl (Requip) 0.5 mg BID PO Last administered on 03/19/17 07:52; Start 03/09/17 at 21:00 Metoprolol Tartrate (Lopressor) 12 mg BID PO Last administered on 03/12/17 08: 34; Start 03/09/17 at 21:00; Stop 03/12/17 at 11:37; Status DC Atorvastatin Calcium (Lipitor) 80 mg QHS PO Last administered on 03/18/17 21: 26; Start 03/09/17 at 21:00 Budesonide (Pulmicort) 0.5 mg RTBID NEB Last administered on 03/19/17 08:20; Start 03/09/17 at 21:00 Naproxen (Naprosyn) 500 mg BIDWMEALS PO Last administered on 03/15/17 09:03; Start 03/09/17 at 21:00; Stop 03/15/17 at 16:09; Status DC Pantoprazole Sodium (Protonix) 40 mg DAILYAC PO Last administered on 03/19/17 05:56; Start 03/10/17 at 07:30 Enoxaparin Sodium (Lovenox 40mg Syringe) 40 mg Q24H SQ Last administered on 20:29; Start 03/09/17 at 21:00; Stop 03/12/17 at 10:11; Status DC Albuterol/ Ipratropium (Duoneb) 3 ml RTQID NEB Last administered on 03/19/17 08:20; Start 03/09/17 at 21:00 Albuterol Sulfate (Ventolin Neb Soln) 2.5 mg PRN Q6HRS PRN NEB SHORTNESS OF BREATH; Start 03/09/17 at 20:45 Oxycodone/ Acetaminophen (Percocet 5/325) 1 tab PRN Q6HRS PRN PO PAIN Last administered on 03/15/17 04:11; Start 03/09/17 at 23:00; Stop 03/16/17 at 15:46 ; Status DC Fentanyl Citrate (Fentanyl 2ml Vial) 50 mcg PRN Q3HRS PRN IV PAIN Last administered on 03/16/17 05:54; Start 03/09/17 at 23:00; Stop 03/16/17 at 12:45 ; Status DC Oxycodone/ Acetaminophen (Percocet 5/325) 2 tab PRN Q6HRS PRN PO PAIN Last administered on 03/16/17 15:08; Start 03/09/17 at 23:00; Stop 03/16/17 at 15:49 ; Status DC Info (Do NOT chart on this placeholder) 0.5 each 1X ONCE MC ; Start 03/10/17 at 00:00; Stop 03/10/17 at 00:01; Status UNV Influenza Virus Vaccine Quadrival (Fluarix Quad [id number] Syringe) 0.5 ml ONCE ONCE VAX IM Last administered on 03/12/17 14:29; Start 03/10/17 at 09:00; Stop 03/10/17 at 09:01; Status DC Sodium Chloride 500 ml @ 500 mls/hr 1X ONCE IV Last administered on 04:33; Start 03/10/17 at 04:00; Stop 03/10/17 at 04:59; Status DC Sodium Chloride 1,000 ml @ 90 mls/hr Q11H7M IV Last administered on 03/11/17 05:37; Start 03/10/17 at 04:00; Stop 03/11/17 at 09:40; Status DC Lidocaine (Lidoderm) 2 patch PRN DAILY PRN TD TOPICAL PAIN Last administered on 03/10/17 19:34; Start 03/10/17 at 19:30; Stop 03/10/17 at 20:08; Status DC Lidocaine (Lidoderm) 3 patch PRN DAILY PRN TD TOPICAL PAIN Last administered on 03/19/17 06:03; Start 03/10/17 at 20:15 Furosemide (Lasix) 20 mg 1X ONCE IVP Last administered on 03/10/17 20:15; Start 03/10/17 at 20:15; Stop 03/10/17 at 20:25; Status DC Lidocaine (Lidoderm) 1 patch 1X ONCE TD Last administered on 03/10/17 20:32; Start 03/10/17 at 20:15; Stop 03/10/17 at 20:25; Status DC Sodium Chloride 250 ml @ 250 mls/hr 1X ONCE IV Last administered on 05:00; Start 03/11/17 at 05:00; Stop 03/11/17 at 05:59; Status DC Phenazopyridine HCl (Pyridium) 200 mg TID PRN PO URINARY PAIN Last administered on 03/11/17 20:29; Start 03/11/17 at 10:00; Stop 03/13/17 at 09:59 ; Status DC Guaifenesin (Mucinex) 600 mg BID PO Last administered on 03/19/17 07:52; Start 03/11/17 at 10:00 Levofloxacin (Levaquin) 750 mg DAILY06 PO Last administered on 03/12/17 05:20 ; Start 03/11/17 at 10:00; Stop 03/12/17 at 11:35; Status DC Fluconazole (Diflucan) 150 mg 1X ONCE PO Last administered on 03/11/17 10:54 ; Start 03/11/17 at 10:00; Stop 03/11/17 at 10:01; Status DC Enoxaparin Sodium (Lovenox 40mg Syringe) 40 mg Q12HR SQ Last administered on 07:56; Start 03/12/17 at 12:00; Stop 03/19/17 at 08:54; Status DC Levofloxacin (Levaquin) 250 mg DAILY06 PO Last administered on 03/16/17 05:54 ; Start 03/13/17 at 06:00; Stop 03/16/17 at 18:49; Status DC Metoprolol Tartrate (Lopressor) 12.5 mg BID PO Last administered on 10/1/17at 21:27; Start 03/12/17 at 21:00 Polyethylene Glycol (miraLAX PACKET) 17 gm DAILY PO Last administered on 09:32; Start 03/13/17 at 09:00; Stop 03/16/17 at 16:18; Status DC Furosemide (Lasix) 20 mg 1X ONCE IVP Last administered on 03/13/17 09:14; Start 03/13/17 at 09:00; Stop 03/13/17 at 09:01; Status DC Bacitracin 28641 unit/Sodium Chloride 1,000 ml @ 1,000 mls/hr 1X PERIOP ONCE IRR Last administered on 03/14/17 13:27; Start 03/14/17 at 06:00; Stop at 06:59; Status DC Fentanyl Citrate (Fentanyl 2ml Vial) 25 mcg PRN Q5MIN PRN IV MILD PAIN; Start 03/14/17 at 07:00; Stop 03/15/17 at 06:59; Status DC Fentanyl Citrate (Fentanyl 2ml Vial) 50 mcg PRN Q5MIN PRN IV MODERATE PAIN Last administered on 03/14/17 16:11; Start 03/14/17 at 07:00; Stop 03/15/17 at 06:59; Status DC Morphine Sulfate 1 mg PRN Q10MIN PRN IV SEVERE PAIN; Start 03/14/17 at 07:00; Stop 03/15/17 at 06:59; Status DC Ringer's Solution 1,000 ml @ 30 mls/hr Q24H IV Last administered on 03/14/17 12:09; Start 03/14/17 at 07:00; Stop 03/14/17 at 18:59; Status DC Lidocaine HCl (Xylocaine-Mpf 1% Vial) 2 ml PRN 1X PRN ID IV START; Start at 07:00; Stop 03/15/17 at 06:59; Status DC Hydromorphone HCl (Dilaudid) 0.5 mg PRN Q10MIN PRN IV SEV PAIN, Second choice Last administered on 03/14/17 16:37; Start 03/14/17 at 07:00; Stop 03/15/17 at 06:59; Status DC Prochlorperazine Edisylate (Compazine) 5 mg PACU PRN PRN IV NAUSEA, MRX1 Last administered on 03/14/17t 16:03; Start 03/14/17 at 07:00; Stop 03/15/17 at 06:59 ; Status DC Midazolam HCl (Versed) 2 mg STK-MED ONCE .ROUTE ; Start 03/14/17 at 09:45; Stop 03/14/17 at 09:46; Status DC Remifentanil HCl (Ultiva) 2 mg STK-MED ONCE IV ; Start 03/14/17 at 09:45; Stop 03/14/17 at 09:46; Status DC Succinylcholine Chloride (Anectine) 200 mg STK-MED ONCE .ROUTE ; Start 03/14/17 at 09:47; Stop 03/14/17 at 09:48; Status DC Glycopyrrolate (Robinul) 1 mg STK-MED ONCE .ROUTE ; Start 03/14/17 at 09:48; Stop 03/14/17 at 09:49; Status DC Phenylephrine HCl (Sen-Synephrine Inj) 10 mg STK-MED ONCE .ROUTE ; Start at 09:48; Stop 03/14/17 at 09:49; Status DC Isoflurane (Isoflurane) 90 ml STK-MED ONCE IH ; Start 03/14/17 at 09:48; Stop at 09:49; Status DC Dexamethasone Sodium Phosphate (Decadron) 20 mg STK-MED ONCE .ROUTE ; Start at 09:48; Stop 03/14/17 at 09:49; Status DC Propofol 20 ml @ As Directed STK-MED ONCE IV ; Start 03/14/17 at 09:48; Stop at 09:49; Status DC Propofol 50 ml @ As Directed STK-MED ONCE IV ; Start 03/14/17 at 09:48; Stop at 09:49; Status DC Ondansetron HCl (Zofran) 4 mg STK-MED ONCE .ROUTE ; Start 03/14/17 at 09:48; Stop 03/14/17 at 09:49; Status DC Lidocaine HCl (Lidocaine Pf 2% Vial) 5 ml STK-MED ONCE .ROUTE ; Start 03/14/17 at 09:48; Stop 03/14/17 at 09:49; Status DC Gelatin (Gelfoam Size 100) 1 each STK-MED ONCE .ROUTE Last administered on 13:27; Start 03/14/17 at 09:05; Stop 03/14/17 at 10:05; Status DC Ketorolac Tromethamine (Toradol For Or Only) 60 mg STK-MED ONCE .ROUTE Last administered on 03/14/17 13:27; Start 03/14/17 at 09:05; Stop 03/14/17 at 10:05 ; Status DC Bupivacaine HCl/ Epinephrine Bitart (Sensorcaine-Epi 0.25%-1:130418 Mpf) 30 ml STK-MED ONCE .ROUTE Last administered on 03/14/17 13:27; Start 03/14/17 at 09: 05; Stop 03/14/17 at 10:05; Status DC Thrombin 20,000 unit STK-MED ONCE TP Last administered on 03/14/17 13:27; Start 03/14/17 at 09:05; Stop 03/14/17 at 10:06; Status DC Remifentanil HCl (Ultiva) 2 mg STK-MED ONCE IV ; Start 03/14/17 at 13:59; Stop 03/14/17 at 14:00; Status DC Sodium Chloride (Sodium Chloride) 50 ml STK-MED ONCE IJ ; Start 03/14/17 at 13: 59; Stop 03/14/17 at 14:00; Status DC Desflurane (Suprane) 90 ml STK-MED ONCE IH ; Start 03/14/17 at 14:30; Stop 03/14 at 14:31; Status DC Propofol 100 ml @ As Directed STK-MED ONCE IV ; Start 03/14/17 at 14:44; Stop 03/14/17 at 14:45; Status DC Tamsulosin HCl (Flomax) 0.4 mg QHS PO Last administered on 03/18/17 21:25; Start 03/14/17 at 21:00 Nystatin (Mycostatin) 1 bassam BID TP Last administered on 03/18/17 10:22; Start 03/14/17 at 21:00 Vancomycin HCl 1 gm STK-MED ONCE .ROUTE ; Start 03/14/17 at 12:26; Stop at 11:30; Status DC Magnesium Citrate (Citroma) 296 ml PRN 1X PRN PO CONSTIPATION Last administered on 03/15/17 16:24; Start 03/15/17 at 16:15 Bisacodyl (Dulcolax Tab) 10 mg DAILY PO Last administered on 03/16/17 09:50; Start 03/16/17 at 09:00; Stop 03/17/17 at 10:42; Status DC Bisacodyl (Dulcolax Supp) 10 mg PRN DAILY PRN OK CONSTIPATION; Start 03/15/17 at 16:15 Polyethylene Glycol (miraLAX PACKET) 17 gm DAILY PO ; Start 03/16/17 at 10:00; Stop 03/16/17 at 16:20; Status DC Methylnaltrexone [place] (Relistor) 12 mg 1X ONCE SQ Last administered on 03/16 09:50; Start 03/16/17 at 09:15; Stop 03/16/17 at 09:16; Status DC Oxycodone/ Acetaminophen (Percocet 5/325) 2 tab PRN Q4HRS PRN PO PAIN Last administered on 03/16/17 19:51; Start 03/16/17 at 15:45; Stop 03/17/17 at 10:40 ; Status DC Oxycodone/ Acetaminophen (Percocet 5/325) 2 tab PRN Q4HRS PRN PO PAIN; Start at 15:45; Stop 03/16/17 at 15:48; Status DC Oxycodone/ Acetaminophen (Percocet 5/325) 1 tab PRN Q4HRS PRN PO PAIN Last administered on 03/17/17 09:03; Start 03/16/17 at 16:30; Stop 03/17/17 at 10:40 ; Status DC Acetaminophen/ Hydrocodone Bitart (Lortab 5/325) 1 tab PRN Q4HRS PRN PO PAIN Last administered on 03/19/17 07:51; Start 03/17/17 at 10:45 Bisacodyl (Dulcolax Tab) 10 mg PRN DAILY PRN PO CONSTIPATION; Start 03/18/17 at 09:00 Furosemide (Lasix) 40 mg 1X ONCE PO Last administered on 03/18/17 10:14; Start 03/18/17 at 10:30; Stop 03/18/17 at 10:31; Status DC Levothyroxine Sodium (Synthroid) 100 mcg DAILY07 PO Last administered on 05:56; Start 03/19/17 at 07:00 Ferrous Sulfate (Feosol) 325 mg DAILYWBKFT PO Last administered on 03/19/17 07 :51; Start 03/18/17 at 11:00 Active Scripts Active Synthroid (Levothyroxine Sodium) 88 Mcg Tablet 1 Tab PO DAILY [Metoprolol Tartrate] 25 MG Tablet 12.5 Mg PO BID Reported Oxycodon-Acetaminophen 2.5-325 (Oxycodone Hcl/Acetaminophen) 1 Each Tablet 1 Each PO PRN Q6HRS PRN Proair Hfa Inhaler (Albuterol Sulfate) 8.5 Gm Hfa.aer.ad 1 Puff INH PRN Q6HRS PRN Actos (Pioglitazone Hcl) 15 Mg Tablet 15 Mg PO DAILY Trulicity (Dulaglutide) 0.75 Mg/0.5 Ml Pen.injctr 0.75 Mg SQ Requip (Ropinirole Hcl) 0.5 Mg Tablet 0.5 Mg PO BID Vitamin D3 (Cholecalciferol (Vitamin D3)) 400 Unit Tablet 400 Unit PO DAILY Tudorza Pressair (Aclidinium [place]) 400 Mcg Aer.pow.ba 400 Mcg IH BID Brovana (Arformoterol Tartrate) 15 Mcg/2 Ml Vial.neb 15 Mcg IH Flovent 220MCG Hfa (Fluticasone Propionate) 12 Gm Aer.w.adap 12 Gm IH Vitamin E 1,000 Unit Capsule 1,000 Unit PO Haloperidol 5 Mg Tablet 5 Mg PO Lipitor (Atorvastatin Calcium) 80 Mg Tablet 80 Mg PO Valacyclovir (Valacyclovir Hcl) 1,000 Mg Tablet 1,000 Mg PO Oxybutynin Chloride 5 Mg Tablet 5 Mg PO Lisinopril 10 Mg Tablet 20 Mg PO Meloxicam 15 Mg Tablet 15 Mg PO Prilosec (Omeprazole) 10 Mg Capsule.dr 20 Mg PO Vitals/I & O Vital Sign - Last 24 Hours 03/18/17 03/18/17 03/18/17 03/18/17 10:41 11:00 11:52 14:51 Temp 97.7 97.7 Pulse 83 Resp 18 16 B/P (MAP) 120/39 (66) Pulse Ox 97 O2 Delivery Nasal Cannula Nasal Cannula Nasal Cannula Nasal Cannula O2 Flow Rate 3.0 3.0 3.0 3.0 03/18/17 03/18/17 03/18/17 03/18/17 15:00 15:41 19:00 19:39 Temp 97.7 97.9 97.7 97.9 Pulse 94 68 Resp 20 18 20 B/P (MAP) 131/58 (82) 125/42 (69) Pulse Ox 95 94 95 O2 Delivery Nasal Cannula Nasal Cannula Nasal Cannula Nasal Cannula O2 Flow Rate 3.0 2.0 3.0 2.0 03/18/17 03/18/17 03/18/17 03/18/17 19:40 20:11 21:27 23:00 Temp 98.1 98.1 Pulse 68 65 Resp 18 B/P (MAP) 125/42 118/41 (66) Pulse Ox 98 93 O2 Delivery Nasal Cannula Nasal Cannula Nasal Cannula O2 Flow Rate 3.0 3.0 3.0 03/18/17 03/19/17 03/19/17 03/19/17 23:37 03:30 03:36 04:39 Temp 98.1 98.1 Pulse 92 Resp 20 18 20 B/P (MAP) 119/53 (75) Pulse Ox 98 95 98 98 O2 Delivery Nasal Cannula Nasal Cannula Nasal Cannula O2 Flow Rate 3.0 3.0 3.0 03/19/17 03/19/17 03/19/17 03/19/17 07:00 07:51 08:23 08:44 Temp 97.9 97.9 Pulse 75 Resp 16 16 B/P (MAP) 116/38 (64) Pulse Ox 96 96 96 O2 Delivery Nasal Cannula Nasal Cannula Nasal Cannula Nasal Cannula O2 Flow Rate 2.0 3.0 3.0 3.0 03/19/17 08:51 Resp 16 O2 Delivery Nasal Cannula O2 Flow Rate 3.0 CASSIDY ORNELAS MD Mar 19, 2017 09:48
[2017-03-19] MEDS: NYSTATIN 100,000 UNIT/GM TOPICAL CREAM 15GM TUBE. TP SCH (10:58)
[2017-03-19 11:00] VITALS: BP 148/49
[2017-03-19 11:01] LABS: BILIRUBIN,URINE NEGATIVE (NEG); GLUCOSE,URINE NEGATIVE (NEG); NITRITE,URINE NEGATIVE (NEG); PROTEIN,URINE NEGATIVE (NEG-TRACE); UROBILINOGEN,URINE 0.2 mg/dL (0.2 mg/dL)
[2017-03-19 11:15] LABS: BACTERIA,URINE 0 /HPF (0-FEW); SQUAMOUS EPITHELIAL CELL,UR MOD /LPF; WBC,URINE OCC /HPF (0-4)
--- NOTE | 2017-03-19 15:19 | PDOC ---
PROGRESS NOTES Subjective Subjective patient seen at 1145 up in chair still some right hip pain but pain has improved since surgery Objective Objective Vital Signs Date Time Temp Pulse Resp B/P (MAP) Pulse Ox O2 Delivery O2 Flow Rate FiO2 03/19/17 12:44 18 Nasal Cannula 3.0 03/19/17 12:15 93 03/19/17 11:00 97.7 92 148/49 (82) 97.7 Physical Exam General: Alert, Oriented X3, Cooperative, No acute distress MUSCULOSKELETAL: Other (JOHNSON) Neuro: Normal speech Skin: Other (dressing changed, dry, jean marie intact, flat) Assessment Assessment Problems Medical Problems: (1) Acute herniated disc Status: Acute (2) Intractable back pain Status: Acute Plan Plan of Care plan to dc home with HH will need to follow up in 10 to 14 days Comment Review of Relevant I have reviewed the following items hitesh (where applicable) has been applied. Labs Laboratory Tests Test 03/17/17 16:44 03/17/17 20:37 03/18/17 04:55 03/18/17 07:02 Glucose (Fingerstick) 173 mg/dL (70-99) 205 mg/dL (70-99) 121 mg/dL (70-99) White Blood Count 10.0 x10^3/uL (4.0-11.0) Red Blood Count 2.70 x10^6/uL (3.50-5.40) Hemoglobin 8.8 g/dL (12.0-15.5) Hematocrit 25.8 % (36.0-47.0) Mean Corpuscular Volume 96 fL (79-100) Mean Corpuscular Hemoglobin 33 pg (25-35) Mean Corpuscular Hemoglobin Concent 34 g/dL (31-37) Red Cell Distribution Width 14.9 % (11.5-14.5) Platelet Count 336 x10^3/uL (140-400) Neutrophils (%) (Auto) 65 % (31-73) Lymphocytes (%) (Auto) 17 % (24-48) Monocytes (%) (Auto) 15 % (0-9) Eosinophils (%) (Auto) 3 % (0-3) Basophils (%) (Auto) 0 % (0-3) Neutrophils # (Auto) 6.4 x10^3uL (1.8-7.7) Lymphocytes # (Auto) 1.7 x10^3/uL (1.0-4.8) Monocytes # (Auto) 1.5 x10^3/uL (0.0-1.1) Eosinophils # (Auto) 0.3 x10^3/uL (0.0-0.7) Basophils # (Auto) 0.0 x10^3/uL (0.0-0.2) Sodium Level 126 mmol/L (136-145) Potassium Level 4.4 mmol/L (3.5-5.1) Chloride Level 92 mmol/L (98-107) Carbon Dioxide Level 30 mmol/L (21-32) Anion Gap 4 (6-14) Blood Urea Nitrogen 17 mg/dL (7-20) Creatinine 1.0 mg/dL (0.6-1.0) Estimated GFR (Cockcroft-Gault) 55.5 Glucose Level 109 mg/dL (70-99) Calcium Level 8.9 mg/dL (8.5-10.1) Test 03/18/17 15:12 03/19/17 03:42 03/19/17 10:50 Glucose (Fingerstick) 131 mg/dL (70-99) Sodium Level 129 mmol/L (136-145) Potassium Level 3.8 mmol/L (3.5-5.1) Chloride Level 93 mmol/L (98-107) Carbon Dioxide Level 30 mmol/L (21-32) Anion Gap 6 (6-14) Blood Urea Nitrogen 14 mg/dL (7-20) Creatinine 1.0 mg/dL (0.6-1.0) Estimated GFR (Cockcroft-Gault) 55.5 Glucose Level 145 mg/dL (70-99) Calcium Level 8.7 mg/dL (8.5-10.1) Urine Collection Type Unknown Urine Color Yellow Urine Clarity Clear Urine pH 6.0 Urine Specific Mobile 1.010 Urine Protein Negative mg/dL (NEG-TRACE) Urine Glucose (UA) Negative mg/dL (NEG) Urine Ketones (Stick) Negative mg/dL (NEG) Urine Blood Trace (NEG) Urine Nitrite Negative (NEG) Urine Bilirubin Negative (NEG) Urine Urobilinogen Dipstick 0.2 mg/dL (0.2 mg/dL) Urine Leukocyte Esterase Negative (NEG) Urine RBC 1-2 /HPF (0-2) Urine WBC Occ /HPF (0-4) Urine Squamous Epithelial Cells Mod /LPF Urine Bacteria 0 /HPF (0-FEW) Urine Mucus Slight /LPF Laboratory Tests Test 03/19/17 03:42 03/19/17 10:50 Sodium Level 129 mmol/L (136-145) Potassium Level 3.8 mmol/L (3.5-5.1) Chloride Level 93 mmol/L (98-107) Carbon Dioxide Level 30 mmol/L (21-32) Anion Gap 6 (6-14) Blood Urea Nitrogen 14 mg/dL (7-20) Creatinine 1.0 mg/dL (0.6-1.0) Estimated GFR (Cockcroft-Gault) 55.5 Glucose Level 145 mg/dL (70-99) Calcium Level 8.7 mg/dL (8.5-10.1) Urine Collection Type Unknown Urine Color Yellow Urine Clarity Clear Urine pH 6.0 Urine Specific Mobile 1.010 Urine Protein Negative mg/dL (NEG-TRACE) Urine Glucose (UA) Negative mg/dL (NEG) Urine Ketones (Stick) Negative mg/dL (NEG) Urine Blood Trace (NEG) Urine Nitrite Negative (NEG) Urine Bilirubin Negative (NEG) Urine Urobilinogen Dipstick 0.2 mg/dL (0.2 mg/dL) Urine Leukocyte Esterase Negative (NEG) Urine RBC 1-2 /HPF (0-2) Urine WBC Occ /HPF (0-4) Urine Squamous Epithelial Cells Mod /LPF Urine Bacteria 0 /HPF (0-FEW) Urine Mucus Slight /LPF Microbiology 03/11/17 Urine Culture - Final, Complete 03/11/17 Urine Culture Result 1 (ADELAIDA) - Final, Complete Medications Current Medications Fentanyl Citrate (Fentanyl 2ml Vial) 75 mcg 1X ONCE IV Last administered on 14:13; Start 03/09/17 at 14:00; Stop 03/09/17 at 14:01; Status DC Ketorolac Tromethamine (Toradol) 15 mg 1X ONCE IV Last administered on 14:13; Start 03/09/17 at 14:00; Stop 03/09/17 at 14:01; Status DC Morphine Sulfate 4 mg 1X ONCE IV Last administered on 03/09/17 15:40; Start 03/09/17 at 15:15; Stop 03/09/17 at 15:16; Status DC Morphine Sulfate 2 mg 1X ONCE IV Last administered on 03/09/17 17:34; Start 03/09/17 at 17:15; Stop 03/09/17 at 17:16; Status DC Morphine Sulfate 5 mg 1X ONCE IV Last administered on 03/09/17 19:23; Start 03/09/17 at 19:15; Stop 03/09/17 at 19:16; Status DC Haloperidol (Haldol) 5 mg HS PO Last administered on 03/18/17 21:25; Start at 21:00 Levothyroxine Sodium (Synthroid) 88 mcg DAILY06 PO Last administered on 05:58; Start 03/10/17 at 06:00; Stop 03/18/17 at 10:09; Status DC Lisinopril (Prinivil) 20 mg DAILY PO ; Start 03/10/17 at 09:00; Stop 03/10/17 at 11:01; Status DC Oxybutynin Chloride (Ditropan) 2.5 mg BID PO Last administered on 03/19/17 07: 51; Start 03/09/17 at 21:00 Pioglitazone HCl (Actos) 15 mg DAILY PO Last administered on 03/19/17 07:52; Start 03/10/17 at 09:00 Non-Formulary Medication 400 mcg BID IH ; Start 03/09/17 at 21:00; Status UNV Non-Formulary Medication 1 puff PRN Q6HRS PRN INH SHORTNESS OF BREATH; Start at 20:30; Status UNV Vitamin D (Vitamin D3) 500 unit DAILY PO Last administered on 03/19/17 07:52; Start 03/10/17 at 09:00 Oxycodone/ Acetaminophen (Percocet 5/325) 0.5 tab PRN Q6HRS PRN PO PAIN Last administered on 03/09/17 21:33; Start 03/09/17 at 20:45; Stop 03/09/17 at 22:49 ; Status DC Ropinirole HCl (Requip) 0.5 mg BID PO Last administered on 03/19/17 07:52; Start 03/09/17 at 21:00 Metoprolol Tartrate (Lopressor) 12 mg BID PO Last administered on 03/12/17 08: 34; Start 03/09/17 at 21:00; Stop 03/12/17 at 11:37; Status DC Atorvastatin Calcium (Lipitor) 80 mg QHS PO Last administered on 03/18/17 21: 26; Start 03/09/17 at 21:00 Budesonide (Pulmicort) 0.5 mg RTBID NEB Last administered on 03/19/17 08:20; Start 03/09/17 at 21:00 Naproxen (Naprosyn) 500 mg BIDWMEALS PO Last administered on 03/15/17 09:03; Start 03/09/17 at 21:00; Stop 03/15/17 at 16:09; Status DC Pantoprazole Sodium (Protonix) 40 mg DAILYAC PO Last administered on 03/19/17 05:56; Start 03/10/17 at 07:30 Enoxaparin Sodium (Lovenox 40mg Syringe) 40 mg Q24H SQ Last administered on 20:29; Start 03/09/17 at 21:00; Stop 03/12/17 at 10:11; Status DC Albuterol/ Ipratropium (Duoneb) 3 ml RTQID NEB Last administered on 03/19/17 12:14; Start 03/09/17 at 21:00 Albuterol Sulfate (Ventolin Neb Soln) 2.5 mg PRN Q6HRS PRN NEB SHORTNESS OF BREATH; Start 03/09/17 at 20:45 Oxycodone/ Acetaminophen (Percocet 5/325) 1 tab PRN Q6HRS PRN PO PAIN Last administered on 03/15/17 04:11; Start 03/09/17 at 23:00; Stop 03/16/17 at 15:46 ; Status DC Fentanyl Citrate (Fentanyl 2ml Vial) 50 mcg PRN Q3HRS PRN IV PAIN Last administered on 03/16/17 05:54; Start 03/09/17 at 23:00; Stop 03/16/17 at 12:45 ; Status DC Oxycodone/ Acetaminophen (Percocet 5/325) 2 tab PRN Q6HRS PRN PO PAIN Last administered on 03/16/17 15:08; Start 03/09/17 at 23:00; Stop 03/16/17 at 15:49 ; Status DC Info (Do NOT chart on this placeholder) 0.5 each 1X ONCE MC ; Start 03/10/17 at 00:00; Stop 03/10/17 at 00:01; Status UNV Influenza Virus Vaccine Quadrival (Fluarix Quad 2358-3271 Syringe) 0.5 ml ONCE ONCE VAX IM Last administered on 03/12/17 14:29; Start 03/10/17 at 09:00; Stop 03/10/17 at 09:01; Status DC Sodium Chloride 500 ml @ 500 mls/hr 1X ONCE IV Last administered on 04:33; Start 03/10/17 at 04:00; Stop 03/10/17 at 04:59; Status DC Sodium Chloride 1,000 ml @ 90 mls/hr Q11H7M IV Last administered on 03/11/17 05:37; Start 03/10/17 at 04:00; Stop 03/11/17 at 09:40; Status DC Lidocaine (Lidoderm) 2 patch PRN DAILY PRN TD TOPICAL PAIN Last administered on 03/10/17 19:34; Start 03/10/17 at 19:30; Stop 03/10/17 at 20:08; Status DC Lidocaine (Lidoderm) 3 patch PRN DAILY PRN TD TOPICAL PAIN Last administered on 03/19/17 06:03; Start 03/10/17 at 20:15 Furosemide (Lasix) 20 mg 1X ONCE IVP Last administered on 03/10/17 20:15; Start 03/10/17 at 20:15; Stop 03/10/17 at 20:25; Status DC Lidocaine (Lidoderm) 1 patch 1X ONCE TD Last administered on 03/10/17 20:32; Start 03/10/17 at 20:15; Stop 03/10/17 at 20:25; Status DC Sodium Chloride 250 ml @ 250 mls/hr 1X ONCE IV Last administered on 05:00; Start 03/11/17 at 05:00; Stop 03/11/17 at 05:59; Status DC Phenazopyridine HCl (Pyridium) 200 mg TID PRN PO URINARY PAIN Last administered on 03/11/17 20:29; Start 03/11/17 at 10:00; Stop 03/13/17 at 09:59 ; Status DC Guaifenesin (Mucinex) 600 mg BID PO Last administered on 03/19/17 07:52; Start 03/11/17 at 10:00 Levofloxacin (Levaquin) 750 mg DAILY06 PO Last administered on 03/12/17 05:20 ; Start 03/11/17 at 10:00; Stop 03/12/17 at 11:35; Status DC Fluconazole (Diflucan) 150 mg 1X ONCE PO Last administered on 03/11/17 10:54 ; Start 03/11/17 at 10:00; Stop 03/11/17 at 10:01; Status DC Enoxaparin Sodium (Lovenox 40mg Syringe) 40 mg Q12HR SQ Last administered on 07:56; Start 03/12/17 at 12:00; Stop 03/19/17 at 08:54; Status DC Levofloxacin (Levaquin) 250 mg DAILY06 PO Last administered on 03/16/17 05:54 ; Start 03/13/17 at 06:00; Stop 03/16/17 at 18:49; Status DC Metoprolol Tartrate (Lopressor) 12.5 mg BID PO Last administered on 03/18/17 21:27; Start 03/12/17 at 21:00 Polyethylene Glycol (miraLAX PACKET) 17 gm DAILY PO Last administered on 09:32; Start 03/13/17 at 09:00; Stop 03/16/17 at 16:18; Status DC Furosemide (Lasix) 20 mg 1X ONCE IVP Last administered on 03/13/17 09:14; Start 03/13/17 at 09:00; Stop 03/13/17 at 09:01; Status DC Bacitracin 25368 unit/Sodium Chloride 1,000 ml @ 1,000 mls/hr 1X PERIOP ONCE IRR Last administered on 03/14/17 13:27; Start 03/14/17 at 06:00; Stop at 06:59; Status DC Fentanyl Citrate (Fentanyl 2ml Vial) 25 mcg PRN Q5MIN PRN IV MILD PAIN; Start 03/14/17 at 07:00; Stop 03/15/17 at 06:59; Status DC Fentanyl Citrate (Fentanyl 2ml Vial) 50 mcg PRN Q5MIN PRN IV MODERATE PAIN Last administered on 03/14/17 16:11; Start 03/14/17 at 07:00; Stop 03/15/17 at 06:59; Status DC Morphine Sulfate 1 mg PRN Q10MIN PRN IV SEVERE PAIN; Start 03/14/17 at 07:00; Stop 03/15/17 at 06:59; Status DC Ringer's Solution 1,000 ml @ 30 mls/hr Q24H IV Last administered on 03/14/17 12:09; Start 03/14/17 at 07:00; Stop 03/14/17 at 18:59; Status DC Lidocaine HCl (Xylocaine-Mpf 1% Vial) 2 ml PRN 1X PRN ID IV START; Start at 07:00; Stop 03/15/17 at 06:59; Status DC Hydromorphone HCl (Dilaudid) 0.5 mg PRN Q10MIN PRN IV SEV PAIN, Second choice Last administered on 03/14/17 16:37; Start 03/14/17 at 07:00; Stop 03/15/17 at 06:59; Status DC Prochlorperazine Edisylate (Compazine) 5 mg PACU PRN PRN IV NAUSEA, MRX1 Last administered on 03/14/17 16:03; Start 03/14/17 at 07:00; Stop 03/15/17 at 06:59 ; Status DC Midazolam HCl (Versed) 2 mg STK-MED ONCE .ROUTE ; Start 03/14/17 at 09:45; Stop 03/14/17 at 09:46; Status DC Remifentanil HCl (Ultiva) 2 mg STK-MED ONCE IV ; Start 03/14/17 at 09:45; Stop 03/14/17 at 09:46; Status DC Succinylcholine Chloride (Anectine) 200 mg STK-MED ONCE .ROUTE ; Start 03/14/17 at 09:47; Stop 03/14/17 at 09:48; Status DC Glycopyrrolate (Robinul) 1 mg STK-MED ONCE .ROUTE ; Start 03/14/17 at 09:48; Stop 03/14/17 at 09:49; Status DC Phenylephrine HCl (Sen-Synephrine Inj) 10 mg STK-MED ONCE .ROUTE ; Start at 09:48; Stop 03/14/17 at 09:49; Status DC Isoflurane (Isoflurane) 90 ml STK-MED ONCE IH ; Start 03/14/17 at 09:48; Stop at 09:49; Status DC Dexamethasone Sodium Phosphate (Decadron) 20 mg STK-MED ONCE .ROUTE ; Start at 09:48; Stop 03/14/17 at 09:49; Status DC Propofol 20 ml @ As Directed STK-MED ONCE IV ; Start 03/14/17 at 09:48; Stop at 09:49; Status DC Propofol 50 ml @ As Directed STK-MED ONCE IV ; Start 03/14/17 at 09:48; Stop at 09:49; Status DC Ondansetron HCl (Zofran) 4 mg STK-MED ONCE .ROUTE ; Start 03/14/17 at 09:48; Stop 03/14/17 at 09:49; Status DC Lidocaine HCl (Lidocaine Pf 2% Vial) 5 ml STK-MED ONCE .ROUTE ; Start 03/14/17 at 09:48; Stop 03/14/17 at 09:49; Status DC Gelatin (Gelfoam Size 100) 1 each STK-MED ONCE .ROUTE Last administered on 13:27; Start 03/14/17 at 09:05; Stop 03/14/17 at 10:05; Status DC Ketorolac Tromethamine (Toradol For Or Only) 60 mg STK-MED ONCE .ROUTE Last administered on 03/14/17 13:27; Start 03/14/17 at 09:05; Stop 03/14/17 at 10:05 ; Status DC Bupivacaine HCl/ Epinephrine Bitart (Sensorcaine-Epi 0.25%-1:379002 Mpf) 30 ml STK-MED ONCE .ROUTE Last administered on 03/14/17 13:27; Start 03/14/17 at 09: 05; Stop 03/14/17 at 10:05; Status DC Thrombin 20,000 unit STK-MED ONCE TP Last administered on 03/14/17 13:27; Start 03/14/17 at 09:05; Stop 03/14/17 at 10:06; Status DC Remifentanil HCl (Ultiva) 2 mg STK-MED ONCE IV ; Start 03/14/17 at 13:59; Stop 03/14/17 at 14:00; Status DC Sodium Chloride (Sodium Chloride) 50 ml STK-MED ONCE IJ ; Start 03/14/17 at 13: 59; Stop 03/14/17 at 14:00; Status DC Desflurane (Suprane) 90 ml STK-MED ONCE IH ; Start 03/14/17 at 14:30; Stop 03/14 at 14:31; Status DC Propofol 100 ml @ As Directed STK-MED ONCE IV ; Start 03/14/17 at 14:44; Stop 03/14/17 at 14:45; Status DC Tamsulosin HCl (Flomax) 0.4 mg QHS PO Last administered on 03/18/17 21:25; Start 03/14/17 at 21:00 Nystatin (Mycostatin) 1 eusebio BID TP Last administered on 03/19/17 10:58; Start 03/14/17 at 21:00 Vancomycin HCl 1 gm STK-MED ONCE .ROUTE ; Start 03/14/17 at 12:26; Stop at 11:30; Status DC Magnesium Citrate (Citroma) 296 ml PRN 1X PRN PO CONSTIPATION Last administered on 03/15/17 16:24; Start 03/15/17 at 16:15 Bisacodyl (Dulcolax Tab) 10 mg DAILY PO Last administered on 03/16/17 09:50; Start 03/16/17 at 09:00; Stop 03/17/17 at 10:42; Status DC Bisacodyl (Dulcolax Supp) [address] CONSTIPATION; Start 03/15/17 at 16:15 Polyethylene Glycol (miraLAX PACKET) 17 gm DAILY PO ; Start 03/16/17 at 10:00; Stop 03/16/17 at 16:20; Status DC Methylnaltrexone [place] (Relistor) 12 mg 1X ONCE SQ Last administered on 03/16 09:50; Start 03/16/17 at 09:15; Stop 03/16/17 at 09:16; Status DC Oxycodone/ Acetaminophen (Percocet 5/325) 2 tab PRN Q4HRS PRN PO PAIN Last administered on 03/16/17 19:51; Start 03/16/17 at 15:45; Stop 03/17/17 at 10:40 ; Status DC Oxycodone/ Acetaminophen (Percocet 5/325) 2 tab PRN Q4HRS PRN PO PAIN; Start at 15:45; Stop 03/16/17 at 15:48; Status DC Oxycodone/ Acetaminophen (Percocet 5/325) 1 tab PRN Q4HRS PRN PO PAIN Last administered on 03/17/17 09:03; Start 03/16/17 at 16:30; Stop 03/17/17 at 10:40 ; Status DC Acetaminophen/ Hydrocodone Bitart (Lortab 5/325) 1 tab PRN Q4HRS PRN PO PAIN Last administered on 03/19/17 11:44; Start 03/17/17 at 10:45 Bisacodyl (Dulcolax Tab) 10 mg PRN DAILY PRN PO CONSTIPATION; Start 03/18/17 at 09:00 Furosemide (Lasix) 40 mg 1X ONCE PO Last administered on 03/18/17 10:14; Start 03/18/17 at 10:30; Stop 03/18/17 at 10:31; Status DC Levothyroxine Sodium (Synthroid) 100 mcg DAILY07 PO Last administered on 05:56; Start 03/19/17 at 07:00 Ferrous Sulfate (Feosol) 325 mg DAILYWBKFT PO Last administered on 03/19/17 07 :51; Start 03/18/17 at 11:00 Active Scripts Active Citroma (Magnesium Citrate) 296 Ml Solution 296 Ml PO PRN 1X PRN 10 Days Synthroid (Levothyroxine Sodium) 100 Mcg Tablet 100 Mcg PO DAILY07 30 Days Lidocaine 1 Each Adh..patch 3 Patch TD PRN DAILY PRN 30 Days Nystatin 15 Gm Cream..g. 1 Eusebio TP BID 14 Days Flomax (Tamsulosin Hcl) 0.4 Mg Cap.er.24h 0.4 Mg PO QHS 30 Days Hydrocodone-Apap 5-325 (Hydrocodone Bit/Acetaminophen) 1 Each Tablet 1 Tab PO PRN Q4HRS PRN 30 Days Bisacodyl 5 Mg Tablet.dr 10 Mg PO PRN DAILY PRN 30 Days Feosol (Ferrous Sulfate) 325 Mg Tablet 325 Mg PO DAILYWBKFT 30 Days [Metoprolol Tartrate] 25 MG Tablet 12.5 Mg PO BID Reported Oxycodon-Acetaminophen 2.5-325 (Oxycodone Hcl/Acetaminophen) 1 Each Tablet 1 Each PO PRN Q6HRS PRN Proair Hfa Inhaler (Albuterol Sulfate) 8.5 Gm Hfa.aer.ad 1 Puff INH PRN Q6HRS PRN Actos (Pioglitazone Hcl) 15 Mg Tablet 15 Mg PO DAILY Trulicity (Dulaglutide) 0.75 Mg/0.5 Ml Pen.injctr 0.75 Mg SQ Requip (Ropinirole Hcl) 0.5 Mg Tablet 0.5 Mg PO BID Vitamin D3 (Cholecalciferol (Vitamin D3)) 400 Unit Tablet 400 Unit PO DAILY Brovana (Arformoterol Tartrate) 15 Mcg/2 Ml Vial.neb 15 Mcg IH Flovent 220MCG Hfa (Fluticasone Propionate) 12 Gm Aer.w.adap 12 Gm IH Vitamin E 1,000 Unit Capsule 1,000 Unit PO Haloperidol 5 Mg Tablet 5 Mg PO Lipitor (Atorvastatin Calcium) 80 Mg Tablet 80 Mg PO Valacyclovir (Valacyclovir Hcl) 1,000 Mg Tablet 1,000 Mg PO Oxybutynin Chloride 5 Mg Tablet 5 Mg PO Lisinopril 10 Mg Tablet 20 Mg PO Meloxicam 15 Mg Tablet 15 Mg PO Prilosec (Omeprazole) 10 Mg Capsule.dr 20 Mg PO Vitals/I & O Vital Sign - Last 24 Hours 03/18/17 03/18/17 03/18/17 03/18/17 15:41 19:00 19:39 19:40 Temp 97.9 97.9 Pulse 68 Resp 18 20 B/P (MAP) 125/42 (69) Pulse Ox 94 95 O2 Delivery Nasal Cannula Nasal Cannula Nasal Cannula Nasal Cannula O2 Flow Rate 2.0 3.0 2.0 3.0 03/18/17 03/18/17 03/18/17 03/18/17 20:11 21:27 23:00 23:37 Temp 98.1 98.1 Pulse 68 65 Resp 18 20 B/P (MAP) 125/42 118/41 (66) Pulse Ox 98 93 98 O2 Delivery Nasal Cannula Nasal Cannula Nasal Cannula O2 Flow Rate 3.0 3.0 3.0 03/19/17 03/19/17 03/19/17 03/19/17 03:30 03:36 04:39 07:00 Temp 98.1 97.9 98.1 97.9 Pulse 92 75 Resp 18 20 16 B/P (MAP) 119/53 (75) 116/38 (64) Pulse Ox 95 98 98 96 O2 Delivery Nasal Cannula Nasal Cannula Nasal Cannula O2 Flow Rate 3.0 3.0 2.0 03/19/17 03/19/17 03/19/17 03/19/17 07:51 08:00 08:23 08:44 Resp 16 Pulse Ox 96 96 O2 Delivery Nasal Cannula Nasal Cannula Nasal Cannula Nasal Cannula O2 Flow Rate 3.0 3.0 3.0 3.0 03/19/17 03/19/17 03/19/17 03/19/17 09:00 11:00 11:44 12:15 Temp 97.7 97.7 Pulse 92 92 Resp 18 16 B/P (MAP) 148/49 148/49 (82) Pulse Ox 96 93 O2 Delivery Nasal Cannula Nasal Cannula Nasal Cannula O2 Flow Rate 2.0 3.0 3.0 03/19/17 12:44 Resp 18 O2 Delivery Nasal Cannula O2 Flow Rate 3.0 GUILLERMO SANCHEZ APRN Mar 19, 2017 15:18
--- NOTE | 2017-03-19 17:09 | PDOC3 ---
Discharge Summary [facility] Date of Admission: Mar 09, 2017 Discharge Date: Mar 19, 2017 Admitting Diagnosis intractable back pain from acute herniated lumbar disc Problems: Final Diagnosis Problems Medical Problems: (1) Acute herniated disc Status: Acute (2) Intractable back pain Status: Acute CONSULTS Jacqui Gay Katta Procedures lumbar microdiscectomy Brief Hospital Course Ms. Alegria is a 66 old who presented with acute severe lumbar back pain and was found to have a lumbar herniated disc but she required cardiac clearance prior to having surgery and had slow recovery due to her co-morbidities. She was treated for the following issues: 1)Acute herniated disc- Post op day 6 microdiscectomy L4-5. Pt states she is now able to ambulate independently. Was denied SNF/Rehab but is now stable for discharge home with home health. Pain controlled with hydrocodone. 2)type II diabetes, chronic stable controlled. HbA1C this admission 5.9. Pt continued on Actos 15mg 3)hypothyroidism- TSH this admission elevated. Levothyroxine increased to 100mcg. 4)schizophrenia, chronic stable. Pt continued on Haldol 5mg QHS 5)hypertension, chronic stable controlled. Pt continued on Metoprolol 12.5mg BID 6)morbid obesity, affecting recovery in a negative way 7)mixed urogenital urine culture, stopped levaquin 8)yeast vaginitis, panniculitis, continue nystatin 9)constipation, she has multiple options for treatment 10)COPD, she is on neb tx here with DuoNeb and budesonide but will transition back to Brovana and Flovent at discharge plus prn albuterol. 11)GERD- continue protonix 40mg 12)Leukocytosis- likely reactive, now back to normal. 13)Edema of lower extremities, improved with diuretics and elevation 14)CKD- stable 15)Anemia- likely worsened from surgery. Will start ferrous sulfate. No active bleeding. Problems: Disposition home with home health CONDITION AT DISCHARGE: Improved, Stable Diet cardiac, diabetic Scheduled Cholecalciferol (Vitamin D3) (Vitamin D3), 400 UNIT PO DAILY, (Reported) Ferrous Sulfate (Feosol), 325 MG PO DAILYWBKFT Levothyroxine Sodium (Synthroid), 100 MCG PO DAILY07 Nystatin (Nystatin), 1 TOMAS TP BID Pioglitazone Hcl (Actos), 15 MG PO DAILY, (Reported) Ropinirole Hcl (Requip), 0.5 MG PO BID, (Reported) Tamsulosin Hcl (Flomax), 0.4 MG PO QHS [Metoprolol Tartrate], 12.5 MG PO BID Scheduled PRN Albuterol Sulfate (Proair Hfa Inhaler), 1 PUFF INH PRN Q6HRS PRN for SHORTNESS OF BREATH, (Reported) Bisacodyl (Bisacodyl), 10 MG PO PRN DAILY PRN for CONSTIPATION Hydrocodone Bit/Acetaminophen (Hydrocodone-Apap 5-325 ), 1 TAB PO PRN Q4HRS PRN for PAIN Lidocaine (Lidocaine), 3 PATCH TD PRN DAILY PRN for TOPICAL PAIN Magnesium Citrate (Citroma), 296 ML PO PRN 1X PRN for CONSTIPATION Oxycodone Hcl/Acetaminophen (Oxycodon-Acetaminophen 2.5-325), 1 EACH PO PRN Q6HRS PRN for PAIN, (Reported) Miscellaneous Medications Arformoterol Tartrate (Brovana), 15 MCG IH, (Reported) Atorvastatin Calcium (Lipitor), 80 MG PO, (Reported) Dulaglutide (Trulicity), 0.75 MG SQ, (Reported) Fluticasone Propionate (Flovent 220MCG Hfa), 12 GM IH, (Reported) Haloperidol (Haloperidol), 5 MG PO, (Reported) Lisinopril (Lisinopril), 20 MG PO, (Reported) Meloxicam (Meloxicam), 15 MG PO, (Reported) Omeprazole (Prilosec), 20 MG PO, (Reported) Oxybutynin Chloride (Oxybutynin Chloride), 5 MG PO, (Reported) Valacyclovir Hcl (Valacyclovir), 1,000 MG PO, (Reported) Vitamin E (Vitamin E), 1,000 UNIT PO, (Reported) Discontinued Medications Aclidinium [place] (Tudorza Pressair), 400 MCG IH BID, (Reported) Levothyroxine Sodium (Synthroid), 1 TAB PO DAILY Follow Up within 2 weeks with neurosurgery and myself Prosper MEEHAN MD Mar 19, 2017 17:09
== END 2017-03-19 16:15 | disposition home health service (06) | DRG 518 ==
LOC: ER 12:31 → 4 NORTH 19:30
PROVIDERS: ADMIT Family Medicine; ATTEND Family Medicine
PROC: 0ST20ZZ Resection of Lumbar Vertebral Disc, Open Approach (ICD-10-PCS; principal; 2017-03-16)
PROC: 4A0 Measurement and Monitoring, Physiological Systems, Measurement (ICD-10-PCS; 2017-03-16)
DX: M51.16 Intervertebral disc disorders with radiculopathy, lumbar region (principal); N17.0 Acute kidney failure with tubular necrosis; I95.9 Hypotension, unspecified; E11.22 Type 2 diabetes mellitus with diabetic chronic kidney disease; Z68.42 Body mass index [BMI] 45.0-49.9, adult; E87.1 Hypo-osmolality and hyponatremia; J44.9 Chronic obstructive pulmonary disease, unspecified; F20.0 Paranoid schizophrenia; N17.9 Acute kidney failure, unspecified; B37.3 Candidiasis of vulva and vagina; M51.26 Other intervertebral disc displacement, lumbar region; D64.9 Anemia, unspecified; E66.01 Morbid (severe) obesity due to excess calories; E03.9 Hypothyroidism, unspecified; D72.829 Elevated white blood cell count, unspecified; E78.00 Pure hypercholesterolemia, unspecified; E78.5 Hyperlipidemia, unspecified; E86.0 Dehydration; I12.9 Hypertensive chronic kidney disease with stage 1 through stage 4 chronic kidney disease, or unspecified chronic kidney disease; I35.0 Nonrheumatic aortic (valve) stenosis; K21.0 Gastro-esophageal reflux disease with esophagitis; K59.00 Constipation, unspecified; M19.90 Unspecified osteoarthritis, unspecified site; M53.3 Sacrococcygeal disorders, not elsewhere classified; R31.9 Hematuria, unspecified; R35.0 Frequency of micturition; M79.3 Panniculitis, unspecified; N18.9 Chronic kidney disease, unspecified; R33.9 Retention of urine, unspecified; Z82.49 Family history of ischemic heart disease and other diseases of the circulatory system; Z87.891 Personal history of nicotine dependence; Z90.49 Acquired absence of other specified parts of digestive tract; Z90.81 Acquired absence of spleen
CPT/HCPCS: 36415; 51701; 71010; 72148; 76000; 80048; 80053; 81001; 82962; 83036; 84443; 85025; 85027; 85610; 87086; 88304; 90686; 93306; 94250; 94640; 94760; 96374; 96375; 96376; A4314; J0330; J0780; J1100; J1170; J1650; J1885; J2212; J2250; J2270; J2405; J2704; J3010; J3370; J3490; J7030; J7040; J7050; J7120; J7620; J7626; 97530; 97535; 99285-25; J2001

== ENCOUNTER 2017-03-29 20:09 | Inpatient (IN) | payer BC ==
[~2017-03-29] VITALS: Ht 167.6 cm; Wt 155.3 kg
[~2017-03-29 20:09] MED LIST changes: +BISA5TAB4 PO; +FERR325T72 PO; +HYDR-2758 PO; +LEVO100T PO; +LIDO700A39 TD; +MAGN296S4 PO; +NYST15CR TP; +OXYC1TAB6 PO; +PIOG15TA42 PO; +PROAIR HFA8.5 GM INH; +TAMS0.4C97 PO
[2017-03-29] MEDS: fentaNYL PF VIAL 100 MCG/2 ML VIAL IV PRN ×2 (21:24→22:38)
[2017-03-29] MEDS ORDERED: ONDANSETRON PF 4 MG/2 ML VIAL. IV ONE (21:30)
[2017-03-29] MEDS ORDERED: FUROSEMIDE 40 MG/4 ML VIAL. IVP ONE (21:30)
[2017-03-29 21:54] LABS: BASO # 0.1 x10^3/uL (0.0-0.2); BASO % 0 % (0-3); EOS % 0 % (0-3); LYMPH # 0.8 x10^3/uL (1.0-4.8); LYMPH % 4 % (24-48); MEAN CORPUSCULAR HEMOGLOBIN 32 pg (25-35); MEAN CORPUSCULAR HGB CONC 33 g/dL (31-37); MEAN CORPUSCULAR VOLUME 95 fL (79-100); MONO % 8 % (0-9); NEUT % 87 % (31-73); PLATELET COUNT 506 x10^3/uL (140-400); RED BLOOD COUNT 2.83 x10^6/uL (3.50-5.40); RED CELL DISTRIBUTION WIDTH 14.6 % (11.5-14.5); WHITE BLOOD COUNT 17.8 x10^3/uL (4.0-11.0)
[2017-03-29 22:06] LABS: CALCIUM 8.8 mg/dL (8.5-10.1); CREATININE 1.5 mg/dL (0.6-1.0); GFR 34.7; POTASSIUM 4.4 mmol/L (3.5-5.1)
[2017-03-29 22:12] LABS: ALBUMIN 2.9 g/dL (3.4-5.0); ALBUMIN/GLOBULIN RATIO 0.9 (1.0-1.7); TOTAL BILIRUBIN 0.5 mg/dL (0.2-1.0)
[2017-03-29 22:13] LABS: PLT ESTIMATE INCREASED (ADEQUATE); POIKILOCYTOSIS SLIGHT
[2017-03-29 22:14] LABS: SCHISTOCYTES OCC
[2017-03-29 22:21] LABS: CKMB MASS 1.4 ng/mL (0.0-3.6)
[2017-03-29] MEDS ORDERED: ACETAMINOPHEN 325 MG TABLET. PO PRN (22:30)
[2017-03-29] MEDS ORDERED: ONDANSETRON PF 4 MG/2 ML VIAL. IV PRN (22:30)
[2017-03-29 23:14] LABS: BILIRUBIN,URINE NEGATIVE (NEG); GLUCOSE,URINE NEGATIVE (NEG); NITRITE,URINE NEGATIVE (NEG); PH,URINE 5.5; PROTEIN,URINE NEGATIVE (NEG-TRACE); UROBILINOGEN,URINE 0.2 mg/dL (0.2 mg/dL)
--- NOTE | 2017-03-29 23:18 | PHYS DOC ---
Past Medical History Past Medical History: Asthma, COPD, Diabetes-Type II, GERD, High Cholesterol, Hypertension, Hypothyroid, Schizophrenia Past Surgical History: Cholecystectomy, Splenectomy, Tonsillectomy, Tubal ligation Additional Past Surgical Histo: Breast Augmentation Alcohol Use: None Drug Use: None Adult General Chief Complaint Chief Complaint: DYSPNEA/RESPIRATOY DISTRESS HPI HPI Patient is a 66 year old female who presents with complaint of shortness of breath. Patient states that she started having shortness of breath approximately 10 days ago during her recent admission to the hospital on March 09, 2017. The patient was seen and treated for severe low back pain and received microdiscectomy by Dr. Meek during her admission. The patient was discharged on March 19. Patient states that while at home she has been having worsening dyspnea with exertion. Patient states she is currently unable to ambulate due to continued low back pain and worsening shortness of breath. Patient denies any associated fevers or chest pain with her symptoms. Patient states that she has had worsening swelling in her lower extremities. Patient has history of COPD. The patient was brought to the emergency department by EMS. Patient initially had respirations of 38/m and patient was on 4 L nasal cannula. Patient's O2 sats were 94%. The patient states that she does wear oxygen at home but states this was not helping her. Review of Systems Review of Systems Constitutional: Denies fever or chills [] Eyes: Denies change in visual acuity, redness, or eye pain [] HENT: Denies nasal congestion or sore throat [] Respiratory: Denies cough or shortness of breath [] Cardiovascular: Dyspnea on exertion, lower extremity edema, denies chest pain[] GI: Denies abdominal pain, nausea, vomiting, bloody stools or diarrhea [] : Denies dysuria or hematuria [] Musculoskeletal: Denies back pain or joint pain [] Integument: Denies rash or skin lesions [] Neurologic: Denies headache, focal weakness or sensory changes [] Current Medications Current Medications Current Medications Medications (Trade) Dose Ordered Sig/Tarah Start Time Stop Time Status Last Admin Dose Admin Fentanyl Citrate (Fentanyl 2ml Vial) 50 mcg PRN Q15MIN PRN 03/29/17 21:15 03/30/17 00:00 03/29/17 22:38 50 MCG Furosemide (Lasix) 60 mg 1X ONCE 03/29/17 21:30 03/29/17 21:31 DC 03/29/17 21:27 60 MG Ondansetron HCl (Zofran) 4 mg 1X ONCE 03/29/17 21:30 03/29/17 21:31 DC 03/29/17 21:23 4 MG Allergies Allergies Allergies Coded Allergies Type Severity Reaction Last Updated Verified erythromycin base Allergy Intermediate Hives 03/10/17 Yes Penicillins Allergy Mild TIRED 11/19/13 Yes Physical Exam Physical Exam Constitutional: Alert, obese afebrile, appears in mild to moderate discomfort. [ ] HENT: Normocephalic, atraumatic, bilateral external ears normal, oropharynx moist, no oral exudates, nose normal. [] Eyes: PERRLA, EOMI, conjunctiva normal, no discharge. [] Neck: Normal range of motion, no tenderness, supple, no stridor. [] Cardiovascular:Heart rate regular rhythm, no murmur [] Lungs & Thorax: Mild rejection of air movement bilaterally, no wheezes, fine rales in the bilateral lung bases[] Abdomen: Bowel sounds normal, soft, no tenderness, no masses, no pulsatile masses. [] Skin: Warm, dry, no erythema, no rash. [] Extremities: No tenderness, no cyanosis, no clubbing, ROM intact, 3+ pitting edema in the bilateral lower extremities. [] Neurologic: Alert and oriented X 3, normal motor function, normal sensory function, no focal deficits noted. [] Current Patient Data Vital Signs Vital Signs Date Time Temp Pulse Resp B/P (MAP) Pulse Ox O2 Delivery O2 Flow Rate FiO2 03/29/17 22:17 79 111/76 (88) 99 Nasal Cannula 3.0 03/29/17 20:10 98.6 38 98.6 Lab Values Laboratory Tests Test 03/29/17 21:45 White Blood Count 17.8 x10^3/uL (4.0-11.0) H Red Blood Count 2.83 x10^6/uL (3.50-5.40) L Hemoglobin 9.0 g/dL (12.0-15.5) L Hematocrit 27.0 % (36.0-47.0) L Mean Corpuscular Volume 95 fL (79-100) Mean Corpuscular Hemoglobin 32 pg (25-35) Mean Corpuscular Hemoglobin Concent 33 g/dL (31-37) Red Cell Distribution Width 14.6 % (11.5-14.5) H Platelet Count 506 x10^3/uL (140-400) H Neutrophils (%) (Auto) 87 % (31-73) H Lymphocytes (%) (Auto) 4 % (24-48) L Monocytes (%) (Auto) 8 % (0-9) Eosinophils (%) (Auto) 0 % (0-3) Basophils (%) (Auto) 0 % (0-3) Neutrophils # (Auto) 15.4 x10^3uL (1.8-7.7) H Lymphocytes # (Auto) 0.8 x10^3/uL (1.0-4.8) L Monocytes # (Auto) 1.4 x10^3/uL (0.0-1.1) H Eosinophils # (Auto) 0.1 x10^3/uL (0.0-0.7) Basophils # (Auto) 0.1 x10^3/uL (0.0-0.2) Segmented Neutrophils % 85 % (35-66) H Lymphocytes % 8 % (24-48) L Monocytes % 7 % (0-10) Platelet Estimate Increased (ADEQUATE) Poikilocytosis Slight Schistocytes Occ Sodium Level 124 mmol/L (136-145) L Potassium Level 4.4 mmol/L (3.5-5.1) Chloride Level 89 mmol/L (98-107) L Carbon Dioxide Level 28 mmol/L (21-32) Anion Gap 7 (6-14) Blood Urea Nitrogen 25 mg/dL (7-20) H Creatinine 1.5 mg/dL (0.6-1.0) H Estimated GFR (Cockcroft-Gault) 34.7 BUN/Creatinine Ratio 17 (6-20) Glucose Level 104 mg/dL (70-99) H Calcium Level 8.8 mg/dL (8.5-10.1) Total Bilirubin 0.5 mg/dL (0.2-1.0) Aspartate Amino Transferase (AST) 16 U/L (15-37) Alanine Aminotransferase (ALT) 26 U/L (14-59) Alkaline Phosphatase 141 U/L (46-116) H Creatine Kinase 127 U/L (26-192) Creatine Kinase MB (Mass) 1.4 ng/mL (0.0-3.6) Creatine Kinase MB Relative Index 1.1 % (0-4) Troponin I Quantitative < 0.017 ng/mL (0.000-0.055) TT-Ety-J-Type Natriuretic Peptide 558 pg/mL (0-124) H Total Protein 6.0 g/dL (6.4-8.2) L Albumin 2.9 g/dL (3.4-5.0) L Albumin/Globulin Ratio 0.9 (1.0-1.7) L Laboratory Tests 03/29/17 21:45 Laboratory Tests 03/29/17 21:45 EKG EKG Interpreted by me: Heart rate 85, sinus rhythm, normal intervals, normal axis, no acute ST/T-wave abnormalities present[] Radiology/Procedures Radiology/Procedures One view AP chest x-ray interpreted by me: Pulmonary vascular congestion, interstitial edema in the bilateral lower lobes, no effusions[] Course & Med Decision Making Course & Med Decision Making Pertinent Labs and Imaging studies reviewed. (See chart for details) The patient maintained oxygen saturation 94% on nasal cannula. Patient's exam and chest x-ray show signs of increased fluid overload. The patient does not have a reported history of CHF, but is showing evidence of acute congestive heart failure based off her chest x-ray, elevated BNP, and significant peripheral edema. Patient was given a dose of IV Lasix for treatment of fluid overload. The patient will require admission to the hospital based off of the severity of her symptoms. I spoke with Dr. Burnham who is on-call for Dr. Pandey and he accepted care patient in hospital. A consult was placed to Dr. Osman to follow with patient in hospital. Dragon Disclaimer Dragon Disclaimer This electronic medical record was generated, in whole or in part, using a voice recognition dictation system. Departure Departure Impression: Primary Impression: Congestive heart failure Additional Impressions: Hyponatremia COPD (chronic obstructive pulmonary disease) Urinary tract infection Moderate protein malnutrition Morbid obesity Disposition: ADMITTED INPATIENT Admitting Physician: Yoselin Pandey Condition: GUARDED Referrals: Prosper PANDEY MD (PCP) Problem Qualifiers Primary Impression: Congestive heart failure Congestive heart failure type: unspecified congestive heart failure type Congestive heart failure chronicity: acute Qualified Codes: I50.9 - Heart failure, unspecified Additional Impressions: COPD (chronic obstructive pulmonary disease) COPD type: unspecified COPD Qualified Codes: J44.9 - Chronic obstructive pulmonary disease, unspecified Urinary tract infection Urinary tract infection type: site unspecified Hematuria presence: without hematuria Qualified Codes: N39.0 - Urinary tract infection, site not specified ROBERT MANRIQUE MD Mar 29, 2017 23:18
[2017-03-29 23:25] LABS: BACTERIA,URINE MANY /HPF (0-FEW); RBC,URINE OCC /HPF (0-2); WBC,URINE >40 /HPF (0-4)
[2017-03-29 23:27] VITALS: BP 131/51
[2017-03-30] VITALS (9 sets, daily range): BP systolic 76–106; BP diastolic 20–52
[2017-03-30] MEDS: fentaNYL PF VIAL 100 MCG/2 ML VIAL IV PRN ×4 (00:01→20:16)
[2017-03-30] MEDS ORDERED: INFLUENZA VAX SCREEN BY RX. MC ONE (01:00)
[2017-03-30] MEDS ORDERED: PNEUMOCOCCAL VAX SCREEN BY RX. MC PRN (01:00)
[2017-03-30 05:58] LABS: BASO % 0 % (0-3); EOS % 1 % (0-3); HEMATOCRIT 22.9 % (36.0-47.0); HEMOGLOBIN 7.7 g/dL (12.0-15.5); LYMPH % 7 % (24-48); MEAN CORPUSCULAR HEMOGLOBIN 32 pg (25-35); MEAN CORPUSCULAR HGB CONC 34 g/dL (31-37); MEAN CORPUSCULAR VOLUME 94 fL (79-100); MONO % 9 % (0-9); NEUT % 83 % (31-73); PLATELET COUNT 452 x10^3/uL (140-400); RED BLOOD COUNT 2.43 x10^6/uL (3.50-5.40); RED CELL DISTRIBUTION WIDTH 14.7 % (11.5-14.5); WHITE BLOOD COUNT 15.9 x10^3/uL (4.0-11.0)
[2017-03-30 06:11] LABS: CALCIUM 8.4 mg/dL (8.5-10.1); CREATININE 1.4 mg/dL (0.6-1.0); GFR 37.6; POTASSIUM 4.4 mmol/L (3.5-5.1)
--- NOTE | 2017-03-30 06:12 | EKG ---
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
[2017-03-30] MEDS ORDERED: NON FORMULARY ITEM (Albuterol Sulfate (Proair Hfa Inhaler) 1 PUFF) INH PRN (07:15)
[2017-03-30] MEDS ORDERED: BISACODYL 5 MG TABLET.DR. PO PRN (07:15)
[2017-03-30] MEDS ORDERED: ACETAMINOPHEN 325 MG TABLET. PO PRN (07:45)
[2017-03-30] MEDS ORDERED: ALBUTEROL SULFATE 2.5 MG/3 ML NEBU. NEB PRN (07:45)
--- NOTE | 2017-03-30 08:24 | RAD ---
Portable chest, 03/29/2017: History: Shortness of breath Comparison is made to a study from 03/18/2017. The heart size and pulmonary vascularity are normal. There is aortic atherosclerosis. No pulmonary infiltrates are seen. An unchanged right parahilar nodule probably represents a calcified granuloma. No acute infiltrates are seen. There is no evidence of pleural fluid. IMPRESSION: No acute cardiopulmonary abnormality is detected.
[2017-03-30] MEDS: PANTOPRAZOLE 40 MG TABLET.DR. PO SCH (08:53)
[2017-03-30] MEDS: HALOPERIDOL 5 MG TABLET. PO SCH (08:54)
[2017-03-30] MEDS: CHOLECALCIFEROL (VITAMIN D3) 1,000 UNIT TABLET PO SCH (08:54)
[2017-03-30] MEDS: OXYBUTYNIN CHLORIDE 5 MG TABLET PO SCH (08:54)
[2017-03-30] MEDS: VITAMIN E 200 UNIT CAPSULE. PO SCH (08:54)
[2017-03-30] MEDS: FERROUS SULFATE 325 MG TABLET. PO SCH (08:54)
[2017-03-30] MEDS: LEVOTHYROXINE 100 MCG TABLET PO SCH (08:54)
[2017-03-30] MEDS: rOPINIRole 0.25 MG TABLET. PO SCH ×2 (08:55→20:16)
[2017-03-30] MEDS: oxyCODONE IR 5 MG TABLET PO PRN ×3 (08:55→23:23)
[2017-03-30] MEDS ORDERED: FLU VACC QS2017-18 (36MOS+)/PF 0.5 ML SYRINGE. VAX IM ONE (09:00)
[2017-03-30] MEDS ORDERED: LISINOPRIL 10 MG TABLET PO SCH (09:00)
[2017-03-30] MEDS ORDERED: ENOXAPARIN 40 MG/0.4 ML SYRINGE. SQ SCH (09:00)
[2017-03-30] MEDS: NYSTATIN TOPICAL POWDER 15GM BOTTLE. TP SCH ×2 (09:00→20:59)
[2017-03-30] MEDS ORDERED: METOPROLOL TART IMMED RELEASE 25 MG TABLET. PO SCH (09:00)
[2017-03-30] MEDS: IPRATRPIUM/ALBUTEROL 0.5/2.5MG 3 ML NEBU. NEB SCH ×4 (09:15→20:23)
[2017-03-30] MEDS ORDERED: PNEUMOC CONJ VACC 23-VALENT 0.5 ML VIAL. VAX IM ONE (09:30)
--- NOTE | 2017-03-30 09:36 | PDOC2 ---
KOURTNEY MCCLELLAND MANAGER GENERATION 03/30/17 0936: CARDIAC CONSULT DATE OF CONSULT Date of Consult DATE: 03/30/17 TIME: 09:20 REASON FOR CONSULT Reason for Consult: CHF REFERRING PHYSICIAN Referring Physician: Bárbara SOURCE Source: Chart review, Patient HISTORY OF PRESENT ILLNESS HISTORY OF PRESENT ILLNESS This is a 66 yo female admitted for complains of SOA. Reports that this is more when she is having lower back pain but otherwise no SOA at rest. Reports that her cough has been increasing and also more productive with yellow sputum but no fever or chills. Reports no chest pain, no palpitations. She uses O2 more at 3 LPM and has not been able to sleep on her back due to her back pain with recent lower back surgery. Her legs have also have become more swollen but nontender. Reports no increasing redness. She has been sleeping upright on a jo and her mobility is limited and mostly on a chair. She has been using her breathing treatment just twice a day and has not been drinking adequately in the last 2 days. PAST MEDICAL HISTORY Cardiovascular: HTN, Hyperlipidemia, Other (SVT) Pulmonary: Asthma, COPD Heme/Onc: Other (myelodysplasia) Psych: Schizophrenia, Other (former alcoholism) Musculoskeletal: low back pain, Osteoarthritis Renal/: Chronic renal insuff (CKD2-3) Endocrine: Diabetes (2), Hypothyroidism Dermatology: No pertinent hx PAST SURGICAL HISTORY Past Surgical History: Tubal Ligation, Other (lumbar surgery, splenectomy, partial liver removal, pelvic sling) SOCIAL HISTORY Smoke: Quit ALCOHOL: none Drugs: None Lives: with Family CURRENT MEDICATIONS CURRENT MEDICATIONS Current Medications Medications (Trade) Dose Ordered Sig/Tarah Route PRN Reason Start Time Stop Time Status Last Admin Dose Admin Fentanyl Citrate (Fentanyl 2ml Vial) 50 mcg PRN Q15MIN PRN IV PAIN GREATER THAN 3/10 03/29/17 21:15 03/30/17 00:00 DC 03/30/17 00:01 Ondansetron HCl (Zofran) 4 mg 1X ONCE IV 03/29/17 21:30 03/29/17 21:31 DC 03/29/17 21:23 Furosemide (Lasix) 60 mg 1X ONCE IVP 03/29/17 21:30 03/29/17 21:31 DC 03/29/17 21:27 Acetaminophen (Tylenol) 650 mg PRN Q4HRS PRN PO FEVER 03/29/17 22:30 03/30/17 22:29 03/30/17 00:00 Ceftriaxone Sodium 1 gm/ Sodium Chloride 50 ml @ 100 mls/hr QHS IV 03/30/17 00:00 03/30/17 01:23 Ferrous Sulfate (Feosol) 325 mg DAILYWBKFT PO 03/30/17 08:00 03/30/17 08:54 Haloperidol (Haldol) 5 mg DAILY PO 03/30/17 09:00 03/30/17 08:54 Levothyroxine Sodium (Synthroid) 100 mcg DAILY07 PO 03/30/17 07:30 03/30/17 08:54 Oxybutynin Chloride (Ditropan) 5 mg DAILY PO 03/30/17 09:00 03/30/17 08:54 Vitamin D (Vitamin D3) 500 unit DAILY PO 03/30/17 09:00 03/30/17 08:54 Oxycodone HCl (Roxicodone) 2.5 mg PRN Q6HRS PRN PO PAIN 03/30/17 07:45 03/30/17 08:55 Ropinirole HCl (Requip) 0.5 mg BID PO 03/30/17 09:00 03/30/17 08:55 Pantoprazole Sodium (Protonix) 40 mg DAILYAC PO 03/30/17 07:30 03/30/17 08:53 Vitamin E 200 unit DAILY PO 03/30/17 09:00 03/30/17 08:54 ALLERGIES ALLERGIES: Coded Allergies: erythromycin base (Verified Allergy, Intermediate, Hives, 03/10/17) Penicillins (Verified Allergy, Mild, TIRED, 11/19/13) ROS Review of System 14 point ROS evaluated with pertinent positives noted per HPI PHYSICAL EXAM General: Alert, Oriented X3, Cooperative, No acute distress HEENT: Atraumatic, Mucous membr. moist/pink, Other (PAIM[place]UT) Lungs: Clear to auscultation, Normal air movement Heart: Regular rate (SR), Normal S1, Normal S2, Other (2/6 systolic murmur to LLS border) Extremities: No cyanosis, Other (3-4+ bilateral LE pitting edema) Skin: No breakdown, No significant lesion, Other (lower back incision well approximated with slight pinkish erythema) Neuro: Normal speech, Sensation intact Psych/Mental Status: Mental status NL, Mood NL MUSCULOSKELETAL: Osteoarthritic changes both hands VITALS VITALS Vital Signs Date Time Temp Pulse Resp B/P (MAP) Pulse Ox O2 Delivery O2 Flow Rate FiO2 03/30/17 09:00 78 99/27 03/30/17 08:55 98 Nasal Cannula 3.0 03/30/17 07:00 98.1 22 98.1 LABS Lab: Laboratory Tests Test 03/29/17 21:45 03/29/17 22:00 03/30/17 04:00 03/30/17 08:11 White Blood Count 17.8 x10^3/uL (4.0-11.0) 15.9 x10^3/uL (4.0-11.0) Red Blood Count 2.83 x10^6/uL (3.50-5.40) 2.43 x10^6/uL (3.50-5.40) Hemoglobin 9.0 g/dL (12.0-15.5) 7.7 g/dL (12.0-15.5) Hematocrit 27.0 % (36.0-47.0) 22.9 % (36.0-47.0) Mean Corpuscular Volume 95 fL (79-100) 94 fL (79-100) Mean Corpuscular Hemoglobin 32 pg (25-35) 32 pg (25-35) Mean Corpuscular Hemoglobin Concent 33 g/dL (31-37) 34 g/dL (31-37) Red Cell Distribution Width 14.6 % (11.5-14.5) 14.7 % (11.5-14.5) Platelet Count 506 x10^3/uL (140-400) 452 x10^3/uL (140-400) Neutrophils (%) (Auto) 87 % (31-73) 83 % (31-73) Lymphocytes (%) (Auto) 4 % (24-48) 7 % (24-48) Monocytes (%) (Auto) 8 % (0-9) 9 % (0-9) Eosinophils (%) (Auto) 0 % (0-3) 1 % (0-3) Basophils (%) (Auto) 0 % (0-3) 0 % (0-3) Neutrophils # (Auto) 15.4 x10^3uL (1.8-7.7) 13.2 x10^3uL (1.8-7.7) Lymphocytes # (Auto) 0.8 x10^3/uL (1.0-4.8) 1.0 x10^3/uL (1.0-4.8) Monocytes # (Auto) 1.4 x10^3/uL (0.0-1.1) 1.5 x10^3/uL (0.0-1.1) Eosinophils # (Auto) 0.1 x10^3/uL (0.0-0.7) 0.2 x10^3/uL (0.0-0.7) Basophils # (Auto) 0.1 x10^3/uL (0.0-0.2) 0.0 x10^3/uL (0.0-0.2) Segmented Neutrophils % 85 % (35-66) Lymphocytes % 8 % (24-48) Monocytes % 7 % (0-10) Platelet Estimate Increased (ADEQUATE) Poikilocytosis Slight Schistocytes Occ Sodium Level 124 mmol/L (136-145) 123 mmol/L (136-145) Potassium Level 4.4 mmol/L (3.5-5.1) 4.4 mmol/L (3.5-5.1) Chloride Level 89 mmol/L (98-107) 90 mmol/L (98-107) Carbon Dioxide Level 28 mmol/L (21-32) 27 mmol/L (21-32) Anion Gap 7 (6-14) 6 (6-14) Blood Urea Nitrogen 25 mg/dL (7-20) 24 mg/dL (7-20) Creatinine 1.5 mg/dL (0.6-1.0) 1.4 mg/dL (0.6-1.0) Estimated GFR (Cockcroft-Gault) 34.7 37.6 BUN/Creatinine Ratio 17 (6-20) Glucose Level 104 mg/dL (70-99) 83 mg/dL (70-99) Calcium Level 8.8 mg/dL (8.5-10.1) 8.4 mg/dL (8.5-10.1) Total Bilirubin 0.5 mg/dL (0.2-1.0) Aspartate Amino Transf (AST/SGOT) 16 U/L (15-37) Alanine Aminotransferase (ALT/SGPT) 26 U/L (14-59) Alkaline Phosphatase 141 U/L (46-116) Creatine Kinase 127 U/L (26-192) Creatine Kinase MB (Mass) 1.4 ng/mL (0.0-3.6) Creatine Kinase MB Relative Index 1.1 % (0-4) Troponin I Quantitative < 0.017 ng/mL (0.000-0.055) YU-Mmb-E-Type Natriuretic Peptide 558 pg/mL (0-124) Total Protein 6.0 g/dL (6.4-8.2) Albumin 2.9 g/dL (3.4-5.0) Albumin/Globulin Ratio 0.9 (1.0-1.7) Urine Collection Type Unknown Urine Color Yellow Urine Clarity Clear Urine pH 5.5 Urine Specific [place] 1.010 Urine Protein Negative mg/dL (NEG-TRACE) Urine Glucose (UA) Negative mg/dL (NEG) Urine Ketones (Stick) Negative mg/dL (NEG) Urine Blood Negative (NEG) Urine Nitrite Negative (NEG) Urine Bilirubin Negative (NEG) Urine Urobilinogen Dipstick 0.2 mg/dL (0.2 mg/dL) Urine Leukocyte Esterase Large (NEG) Urine RBC Occ /HPF (0-2) Urine WBC >40 /HPF (0-4) Urine Bacteria Many /HPF (0-FEW) Glucose (Fingerstick) 94 mg/dL (70-99) ECHOCARDIOGRAM ECHOCARDIOGRAM <Conclusion> Left ventricle systolic function is normal. The Ejection Fraction is 65-70%. There is normal LV segmental wall motion. Transmitral Doppler flow pattern is Grade I-abnormal relaxation pattern. Trace mitral regurgitation. Mild to moderate tricuspid regurgitation. The PA pressure was estimated at 57 mmHg. There is no evidence of significant pericardial effusion. DATE: 03/11/17 1220 STRESS TEST STRESS TEST Conclusion 1. No evidence of significant fixed or reversible defects appreciated. 2. Ejection fraction calculated to be 80% with normal wall motion on gated SPECT images. 3. Normal nuclear imaging scan. DATE: 06/04/13 0934 ASSESSMENT/PLAN ASSESSMENT/PLAN 1. Dyspnea: more from COPD and anemia. BNP mildly elevated, no pulmonary vascular congestion. 2. Acute on chronic diastolic CHF: right sided and mild/pulmonary induced. Recent TTE with normal EF and wall motion 3. Hypotension: significant diurese overnight with x1 lasix last noc 4. Dependent Bilateral LE edema: Suspect venous insufficiency likely from venous compression from sitting all the time, unable to lay flat due to lower back, and morbid obesity 5. Anemia: Hgb 7.7 with underlying hx of myelodysplasia. 6. RADHA/Hyponatremia: poor fluid intake lately with notable use of mobic, haldol and trulicity. 7. AECOPD/moderate pulmonary HTN: progressive increase in sputum and coughing. 8. Morbid obesity with likely undiagnosed GENIA 9. Possible UTI 10. S//P Lumbar hemilaminotomy and microdiscectomy: 03/14/2017 Recommendations 1. Lymphedema consult 2. COPD coverage per PCP 3. Hold BP meds till BP is consistently adequate, discussed with staff May need to stop home mobic and hold haldol, lisinopril and trulicity for now. No further lasix at this time. Awaiting nephrology consult 4. IVF Problems: GAGE STRICKLAND MD 03/30/17 1701: CARDIAC CONSULT ALLERGIES ALLERGIES: Coded Allergies: erythromycin base (Verified Allergy, Intermediate, Hives, 03/10/17) Penicillins (Verified Allergy, Mild, TIRED, 11/19/13) ASSESSMENT/PLAN ASSESSMENT/PLAN Patient seen and examined Dyspnea. Multifactorial but probably more related to pulmonary issues. Continue as above. Pulmonary evaluation pending. Acute on chronic diastolic heart failure. Recent echo with intact LV systolic function. Mild diuresis with monitoring of lab. Moderate pulmonary hypertension, exacerbation of COPD. Continue medications as above. Status post lumbar microdiscectomy approximately 2 weeks ago. Morbid obesity. Labile blood pressure. Adjusting medications as needed. Mild IV fluids. Renal evaluation. Thank you for allowing us to participate in the care of your patient. Problems: KOURTNEY MCCLELLAND APRN Mar 30, 2017 09:36 GAGE STRICKLAND MD Mar 30, 2017 17:01
--- NOTE | 2017-03-30 09:41 | HP ---
ADMIT DATE: 03/30/2017 CHIEF COMPLAINT: Shortness of breath. HISTORY OF PRESENT ILLNESS AND HOSPITAL COURSE: This patient is a 66-year-old female, who has recently had low back surgery due to acute disk herniation, came back to the hospital with 48 hours of increasing shortness of breath. She states she was having difficulty managing at home due to debilitation from a recent surgery and began having shortness of breath to the point where she came to the Emergency Room. In the Emergency Room, she was found to have elevated BNP and evidence of CHF; therefore, she was treated with IV Lasix with excellent output of over 1500 mL initially and 3000 total by the time of my evaluation. Her symptoms improved slightly, but she continued to have increasing shortness of breath and ongoing debilitation. The patient was also found to have hyponatremia and anemia during early hospital stay. Due to severity of symptoms and the patient's inability to care for herself, she was admitted for further evaluation as well as Cardiology and Nephrology consultation. PAST MEDICAL HISTORY: Significant for: 1. Morbid obesity. 2. Hypothyroidism. 3. Type 2 diabetes. 4. Osteoarthritis with spinal stenosis and recent L-spine surgery. 5. Paranoid schizophrenia. 6. Asthma. 7. Aortic stenosis. 8. Status post splenectomy. 9. Reflux esophagitis. PAST SURGICAL HISTORY: Significant for: 1. Splenectomy. 2. Cholecystectomy. 3. Hernia repair. 4. Tubal ligation. 5. Partial lobectomy of liver. 6. Pelvic sling surgery. 7. Breast augmentation. FAMILY HISTORY: Significant for heart disease in her mother, otherwise noncontributory. SOCIAL HISTORY: The patient is a former smoker, quit 5-10 years ago, smoked up to 1 pack per day with a [id number] history of smoking. The patient does not use alcohol. She lives with her and son. REVIEW OF SYSTEMS: The patient was in her usual state of health, convalescing from her recent low back surgery, but apparently failing with PT and OT home health at home and was unable to care for herself well. She denied any nausea, vomiting, diarrhea, cough, congestion, or chest pain but did have increasing shortness of breath and fatigue during the last week since her last hospitalization. PHYSICAL EXAMINATION: GENERAL: This is a 66-year-old female appearing older than her stated age of 66 who is morbidly obese. She is somewhat anxious and short of breath. HEENT: Benign. NECK: Supple. CARDIAC: Regular rate and rhythm. LUNGS: Clear anteriorly. ABDOMEN: Soft and nontender. EXTREMITIES: Revealed chronic lymphedema with 2+ edema lower extremities and 4+ lymphedema to calves. NEUROLOGIC: Showed no unilateral findings. ASSESSMENT: 1. Acute diastolic congestive heart failure. 2. Morbid obesity. 3. Spinal stenosis, status post recent spine surgery. 4. Type 2 diabetes. 5. Hypothyroidism. 6. Evidence of urinary tract infection on urinalysis. 7. Significant hyponatremia. 8. Anemia. PLAN: To proceed with IV Lasix and diuresis, consult Cardiology for management of heart failure. Consult Nephrology for management of hyponatremia. Proceed with a V/Q scanning and venous Doppler to rule out pulmonary embolus. ILDA ZAMBRANO MD DR: RAMON/mahesh JOB#: [id number] / [id number]
[2017-03-30] MEDS ORDERED: IV NORMAL SALINE 1000ML BAG 1,000 ML IV ONE (10:15)
[2017-03-30] MEDS: LIDOCAINE (700MG/PATCH) PATCH. TD PRN (10:17)
--- NOTE | 2017-03-30 11:19 | PDOC ---
Renal-Progress Notes Subjective Notes Notes LOW NA AND CKD History of Present Illness Hx of present illness THIS IS A 66 YR OLD HERE WITH C/O SOB. RECENTLY HAD BACK SURGERY AND HAS BEEN FEELING POORLY AT HOME. NOTED PROGRESSIVE SOB AND CAME INTO THE HOSPITAL. NOTED TO HAVE A NA OF 123 AND A CR OF 1.5. BOTH APPEAR TO BE CHRONIC TO SOME DEGREE. SHE HAS ALSO NOTED PROGRESSIVE LE EDEMA. SHE IS SOMEWHAT HYPOTENSIVE HOWEVER IS SITTING UP AND WITHOUT ANY COMPLAINTS. NOT CONVINCED THAT HER BP READINGS ARE ACCURATE. GOOD PULSES AT THE RADIAL NOTED. SHE HAS AN UTI AND LEUCOCYTOSIS Vitals Vitals Vital Signs Date Time Temp Pulse Resp B/P (MAP) Pulse Ox O2 Delivery O2 Flow Rate FiO2 03/30/17 10:35 76/20 (38) 03/30/17 10:34 98.1 79 21 98 Nasal Cannula 3.0 98.1 Weight Weight [ ] Medications Medications MEDS REVIEWED Labs Labs Laboratory Tests Test 03/29/17 21:45 03/29/17 22:00 03/30/17 04:00 03/30/17 08:11 White Blood Count 17.8 x10^3/uL (4.0-11.0) 15.9 x10^3/uL (4.0-11.0) Red Blood Count 2.83 x10^6/uL (3.50-5.40) 2.43 x10^6/uL (3.50-5.40) Hemoglobin 9.0 g/dL (12.0-15.5) 7.7 g/dL (12.0-15.5) Hematocrit 27.0 % (36.0-47.0) 22.9 % (36.0-47.0) Mean Corpuscular Volume 95 fL (79-100) 94 fL (79-100) Mean Corpuscular Hemoglobin 32 pg (25-35) 32 pg (25-35) Mean Corpuscular Hemoglobin Concent 33 g/dL (31-37) 34 g/dL (31-37) Red Cell Distribution Width 14.6 % (11.5-14.5) 14.7 % (11.5-14.5) Platelet Count 506 x10^3/uL (140-400) 452 x10^3/uL (140-400) Neutrophils (%) (Auto) 87 % (31-73) 83 % (31-73) Lymphocytes (%) (Auto) 4 % (24-48) 7 % (24-48) Monocytes (%) (Auto) 8 % (0-9) 9 % (0-9) Eosinophils (%) (Auto) 0 % (0-3) 1 % (0-3) Basophils (%) (Auto) 0 % (0-3) 0 % (0-3) Neutrophils # (Auto) 15.4 x10^3uL (1.8-7.7) 13.2 x10^3uL (1.8-7.7) Lymphocytes # (Auto) 0.8 x10^3/uL (1.0-4.8) 1.0 x10^3/uL (1.0-4.8) Monocytes # (Auto) 1.4 x10^3/uL (0.0-1.1) 1.5 x10^3/uL (0.0-1.1) Eosinophils # (Auto) 0.1 x10^3/uL (0.0-0.7) 0.2 x10^3/uL (0.0-0.7) Basophils # (Auto) 0.1 x10^3/uL (0.0-0.2) 0.0 x10^3/uL (0.0-0.2) Segmented Neutrophils % 85 % (35-66) Lymphocytes % 8 % (24-48) Monocytes % 7 % (0-10) Platelet Estimate Increased (ADEQUATE) Poikilocytosis Slight Schistocytes Occ Sodium Level 124 mmol/L (136-145) 123 mmol/L (136-145) Potassium Level 4.4 mmol/L (3.5-5.1) 4.4 mmol/L (3.5-5.1) Chloride Level 89 mmol/L (98-107) 90 mmol/L (98-107) Carbon Dioxide Level 28 mmol/L (21-32) 27 mmol/L (21-32) Anion Gap 7 (6-14) 6 (6-14) Blood Urea Nitrogen 25 mg/dL (7-20) 24 mg/dL (7-20) Creatinine 1.5 mg/dL (0.6-1.0) 1.4 mg/dL (0.6-1.0) Estimated GFR (Cockcroft-Gault) 34.7 37.6 BUN/Creatinine Ratio 17 (6-20) Glucose Level 104 mg/dL (70-99) 83 mg/dL (70-99) Calcium Level 8.8 mg/dL (8.5-10.1) 8.4 mg/dL (8.5-10.1) Total Bilirubin 0.5 mg/dL (0.2-1.0) Aspartate Amino Transf (AST/SGOT) 16 U/L (15-37) Alanine Aminotransferase (ALT/SGPT) 26 U/L (14-59) Alkaline Phosphatase 141 U/L (46-116) Creatine Kinase 127 U/L (26-192) Creatine Kinase MB (Mass) 1.4 ng/mL (0.0-3.6) Creatine Kinase MB Relative Index 1.1 % (0-4) Troponin I Quantitative < 0.017 ng/mL (0.000-0.055) ZO-Cod-Q-Type Natriuretic Peptide 558 pg/mL (0-124) Total Protein 6.0 g/dL (6.4-8.2) Albumin 2.9 g/dL (3.4-5.0) Albumin/Globulin Ratio 0.9 (1.0-1.7) Urine Collection Type Unknown Urine Color Yellow Urine Clarity Clear Urine pH 5.5 Urine Specific [place] 1.010 Urine Protein Negative mg/dL (NEG-TRACE) Urine Glucose (UA) Negative mg/dL (NEG) Urine Ketones (Stick) Negative mg/dL (NEG) Urine Blood Negative (NEG) Urine Nitrite Negative (NEG) Urine Bilirubin Negative (NEG) Urine Urobilinogen Dipstick 0.2 mg/dL (0.2 mg/dL) Urine Leukocyte Esterase Large (NEG) Urine RBC Occ /HPF (0-2) Urine WBC >40 /HPF (0-4) Urine Bacteria Many /HPF (0-FEW) Glucose (Fingerstick) 94 mg/dL (70-99) Review of Systems Constitutional: yes: weakness, alert, oriented Eyes: Yes: no symptom reported Pulmonary: Yes dyspnea Cardiovascular: Yes edema Gastrointestional: Yes: constipation Genitourinary: Yes: frequency Musculoskeletal: Yes: muscle stiffness Skin: Yes color change Psychiatric/Neurological: Yes: no symptom reported Endocrine: Yes: no symptom reported Hematologic/Lymphatic: Yes: no symptom reported Physical Exam Musculoskeletal: low back pain, Osteoarthritis Assessment Assessment IMP HYPONATREMIA-HYPERVOLEMIA CKD STAGE 3 DM II HTN ANEMIA EDEMA/ANASARCA HYPOTENSION LEUCOCYTOSIS UTI HYPOTHYROIDISM PLAN STOP IVF'S STOP BETABLOCKER IV LASIX CHECK TSH ANTIBIOTICS NEMO FRANKLIN MD Mar 30, 2017 11:19
[2017-03-30] MEDS: INSULIN ASPART 300 UNITS/3 ML INSULN.PEN SQ SCH ×3 (11:30→20:25)
[2017-03-30] MEDS: FUROSEMIDE 40 MG/4 ML VIAL. IVP SCH ×3 (12:00→23:23)
--- NOTE | 2017-03-30 12:06 | RAD ---
Indication shortness of breath for several days. Ventilation perfusion lung scan was performed. The intervertebral evaluate ventilation 16 mCi of xenon-133 was administered. To evaluate perfusion 5.5 mCi of technetium labeled MAA was administered. Note is made of a previous examination 09/07/2014. The study is correlated with a plain film examination of the chest obtained yesterday. There is no significant air trapping on the ventilatory aspect of the study. The perfusion portion of the examination is unremarkable. No V/Q mismatch is seen. The perfusion study appears unchanged relative to the previous exam. The study remains low probability for pulmonary embolus IMPRESSION: Low probability VQ scan for pulmonary
--- NOTE | 2017-03-30 13:13 | RAD ---
Bilateral lower extremity venous ultrasound, 03/30/2017: History: Shortness of breath, bilateral leg swelling Duplex evaluation of the deep veins in the lower extremities was performed including grayscale, color-flow and spectral Doppler analysis. This study was compromised by the patient's large body habitus. The femoral and popliteal veins are patent bilaterally. Color imaging of those vessels shows no evidence of intraluminal clot. Limited views of the calf veins show no evidence of DVT. IMPRESSION: There is no sonographic evidence of deep vein thrombosis in either lower extremity.
[2017-03-30] MEDS: ACETAMINOPHEN 325 MG TABLET. PO PRN (16:01)
[2017-03-31] VITALS (8 sets, daily range): BP systolic 86–123; BP diastolic 29–41
[2017-03-31 05:42] LABS: BASO # 0.1 x10^3/uL (0.0-0.2); BASO % 1 % (0-3); EOS % 2 % (0-3); HEMATOCRIT 25.9 % (36.0-47.0); HEMOGLOBIN 8.6 g/dL (12.0-15.5); LYMPH # 1.8 x10^3/uL (1.0-4.8); LYMPH % 13 % (24-48); MEAN CORPUSCULAR HEMOGLOBIN 32 pg (25-35); MEAN CORPUSCULAR HGB CONC 33 g/dL (31-37); MEAN CORPUSCULAR VOLUME 95 fL (79-100); MONO % 12 % (0-9); NEUT % 72 % (31-73); PLATELET COUNT 427 x10^3/uL (140-400); RED BLOOD COUNT 2.72 x10^6/uL (3.50-5.40); RED CELL DISTRIBUTION WIDTH 15.3 % (11.5-14.5); WHITE BLOOD COUNT 13.6 x10^3/uL (4.0-11.0)
[2017-03-31] MEDS: oxyCODONE IR 5 MG TABLET PO PRN ×5 (05:45→23:58)
[2017-03-31] MEDS: PANTOPRAZOLE 40 MG TABLET.DR. PO SCH (05:45)
[2017-03-31] MEDS: LEVOTHYROXINE 100 MCG TABLET PO SCH (05:45)
[2017-03-31] MEDS: FUROSEMIDE 40 MG/4 ML VIAL. IVP SCH ×3 (05:46→20:42)
[2017-03-31 06:16] LABS: ALBUMIN 2.6 g/dL (3.4-5.0); ALBUMIN/GLOBULIN RATIO 0.7 (1.0-1.7); CALCIUM 8.6 mg/dL (8.5-10.1); CREATININE 1.3 mg/dL (0.6-1.0); POTASSIUM 4.6 mmol/L (3.5-5.1); TOTAL BILIRUBIN 0.3 mg/dL (0.2-1.0); TOTAL PROTEIN 6.1 g/dL (6.4-8.2)
[2017-03-31] MEDS: INSULIN ASPART 300 UNITS/3 ML INSULN.PEN SQ SCH ×4 (07:30→22:36)
[2017-03-31] MEDS: IPRATRPIUM/ALBUTEROL 0.5/2.5MG 3 ML NEBU. NEB SCH ×4 (07:32→20:54)
[2017-03-31] MEDS: FERROUS SULFATE 325 MG TABLET. PO SCH (09:44)
[2017-03-31] MEDS: CHOLECALCIFEROL (VITAMIN D3) 1,000 UNIT TABLET PO SCH (09:44)
[2017-03-31] MEDS: VITAMIN E 200 UNIT CAPSULE. PO SCH (09:46)
[2017-03-31] MEDS: rOPINIRole 0.25 MG TABLET. PO SCH ×2 (09:46→20:42)
[2017-03-31] MEDS: NYSTATIN TOPICAL POWDER 15GM BOTTLE. TP SCH ×2 (09:48→20:42)
[2017-03-31] MEDS: OXYBUTYNIN CHLORIDE 5 MG TABLET PO SCH (09:49)
[2017-03-31] MEDS: HALOPERIDOL 5 MG TABLET. PO SCH (10:09)
--- NOTE | 2017-03-31 11:31 | PDOC ---
PROGRESS NOTES Subjective Subjective Patient reports that back pain is not controlled with present Oxycodone, reports she chronically takes a higher dose at home. Reports breathing may be somewhat improved from admission. States she cannot sleep in bed or elevate her legs in the recliner due to increased pain in back and legs when she does this. Objective Objective Vital Signs Date Time Temp Pulse Resp B/P (MAP) Pulse Ox O2 Delivery O2 Flow Rate FiO2 03/31/17 11:19 97 Nasal Cannula 2.0 03/31/17 07:51 98.1 79 20 100/29 (52) 98.1 Intake and Output 04/01/17 07:00 Intake Total 450 ml Balance 450 ml Intake Oral 450 ml Physical Exam Abdomen: Normal bowel sounds, Soft, No tenderness Heart: Regular rate Extremities: Other (3+ pitting edema bilateral LE's, scant diffuse erythema) General: Alert, Oriented X3, No acute distress Lungs: Other (BS decreased throughout but otherwise CTA) Assessment Assessment Problems Medical Problems: (1) Congestive heart failure Status: Acute (2) COPD (chronic obstructive pulmonary disease) Status: Acute (3) Hyponatremia Status: Acute (4) Moderate protein malnutrition Status: Acute (5) Morbid obesity Status: Acute (6) Urinary tract infection Status: Acute Plan Plan of Care 1. Acute on chronic respiratory failure with COPD - stable, sats good on her usual O2 per NC. Continue O2 and nebs. 2. AE diastolic CHF - some diuresis with Lasix, continue. No further IVF per Renal. 3. hyponatremia with CKD III - renal function appears about at baseline now and Na mildly better. Continue tx as per Renal. 4. UTI - preliminary culture shows gram negative rods. Continue Rocephin. 5. anemia - some of this is chronic for her. Hgb improved after transfusing one unit PRBC's yesterday. Continue Fe. 6. hypothyroidism - TSH was elevated during hospitalization last month and her dose of Levothyroxine was increased to the present dose of 100mcg. Will continue this. 7. DM2 - controlled, continue SS insulin. Actos and Trulicity presently on hold. 8. chronic back pain - patient apparently still having significant post- operative pain. Will offer increased Oxycodone. 9. morbid obesity and debility - patient was unable to care for herself at home after recent discharge. Continue therapies. Her insurance had denied residential care but hopefully will reconsider now that she has failed treatment at home. 10. schizophrenia - patient states she is doing well with her usual Haldol, continue. Comment Review of Relevant I have reviewed the following items hitesh (where applicable) has been applied. Labs Laboratory Tests Test 03/29/17 21:45 03/29/17 22:00 03/30/17 04:00 03/30/17 08:11 White Blood Count 17.8 x10^3/uL (4.0-11.0) 15.9 x10^3/uL (4.0-11.0) Red Blood Count 2.83 x10^6/uL (3.50-5.40) 2.43 x10^6/uL (3.50-5.40) Hemoglobin 9.0 g/dL (12.0-15.5) 7.7 g/dL (12.0-15.5) Hematocrit 27.0 % (36.0-47.0) 22.9 % (36.0-47.0) Mean Corpuscular Volume 95 fL (79-100) 94 fL (79-100) Mean Corpuscular Hemoglobin 32 pg (25-35) 32 pg (25-35) Mean Corpuscular Hemoglobin Concent 33 g/dL (31-37) 34 g/dL (31-37) Red Cell Distribution Width 14.6 % (11.5-14.5) 14.7 % (11.5-14.5) Platelet Count 506 x10^3/uL (140-400) 452 x10^3/uL (140-400) Neutrophils (%) (Auto) 87 % (31-73) 83 % (31-73) Lymphocytes (%) (Auto) 4 % (24-48) 7 % (24-48) Monocytes (%) (Auto) 8 % (0-9) 9 % (0-9) Eosinophils (%) (Auto) 0 % (0-3) 1 % (0-3) Basophils (%) (Auto) 0 % (0-3) 0 % (0-3) Neutrophils # (Auto) 15.4 x10^3uL (1.8-7.7) 13.2 x10^3uL (1.8-7.7) Lymphocytes # (Auto) 0.8 x10^3/uL (1.0-4.8) 1.0 x10^3/uL (1.0-4.8) Monocytes # (Auto) 1.4 x10^3/uL (0.0-1.1) 1.5 x10^3/uL (0.0-1.1) Eosinophils # (Auto) 0.1 x10^3/uL (0.0-0.7) 0.2 x10^3/uL (0.0-0.7) Basophils # (Auto) 0.1 x10^3/uL (0.0-0.2) 0.0 x10^3/uL (0.0-0.2) Segmented Neutrophils % 85 % (35-66) Lymphocytes % 8 % (24-48) Monocytes % 7 % (0-10) Platelet Estimate Increased (ADEQUATE) Poikilocytosis Slight Schistocytes Occ Sodium Level 124 mmol/L (136-145) 123 mmol/L (136-145) Potassium Level 4.4 mmol/L (3.5-5.1) 4.4 mmol/L (3.5-5.1) Chloride Level 89 mmol/L (98-107) 90 mmol/L (98-107) Carbon Dioxide Level 28 mmol/L (21-32) 27 mmol/L (21-32) Anion Gap 7 (6-14) 6 (6-14) Blood Urea Nitrogen 25 mg/dL (7-20) 24 mg/dL (7-20) Creatinine 1.5 mg/dL (0.6-1.0) 1.4 mg/dL (0.6-1.0) Estimated GFR (Cockcroft-Gault) 34.7 37.6 BUN/Creatinine Ratio 17 (6-20) Glucose Level 104 mg/dL (70-99) 83 mg/dL (70-99) Calcium Level 8.8 mg/dL (8.5-10.1) 8.4 mg/dL (8.5-10.1) Total Bilirubin 0.5 mg/dL (0.2-1.0) Aspartate Amino Transf (AST/SGOT) 16 U/L (15-37) Alanine Aminotransferase (ALT/SGPT) 26 U/L (14-59) Alkaline Phosphatase 141 U/L (46-116) Creatine Kinase 127 U/L (26-192) Creatine Kinase MB (Mass) 1.4 ng/mL (0.0-3.6) Creatine Kinase MB Relative Index 1.1 % (0-4) Troponin I Quantitative < 0.017 ng/mL (0.000-0.055) XP-[id number]-Type Natriuretic Peptide 558 pg/mL (0-124) Total Protein 6.0 g/dL (6.4-8.2) Albumin 2.9 g/dL (3.4-5.0) Albumin/Globulin Ratio 0.9 (1.0-1.7) Urine Collection Type Unknown Urine Color Yellow Urine Clarity Clear Urine pH 5.5 Urine Specific [place] 1.010 Urine Protein Negative mg/dL (NEG-TRACE) Urine Glucose (UA) Negative mg/dL (NEG) Urine Ketones (Stick) Negative mg/dL (NEG) Urine Blood Negative (NEG) Urine Nitrite Negative (NEG) Urine Bilirubin Negative (NEG) Urine Urobilinogen Dipstick 0.2 mg/dL (0.2 mg/dL) Urine Leukocyte Esterase Large (NEG) Urine RBC Occ /HPF (0-2) Urine WBC >40 /HPF (0-4) Urine Bacteria Many /HPF (0-FEW) Glucose (Fingerstick) 94 mg/dL (70-99) Test 03/30/17 10:20 03/30/17 16:43 03/30/17 20:14 03/31/17 03:00 Glucose (Fingerstick) 87 mg/dL (70-99) 139 mg/dL (70-99) 160 mg/dL (70-99) Sodium Level 126 mmol/L (136-145) Potassium Level 4.6 mmol/L (3.5-5.1) Chloride Level 92 mmol/L (98-107) Carbon Dioxide Level 27 mmol/L (21-32) Anion Gap 7 (6-14) Blood Urea Nitrogen 23 mg/dL (7-20) Creatinine 1.3 mg/dL (0.6-1.0) Estimated GFR (Cockcroft-Gault) 41.0 BUN/Creatinine Ratio 18 (6-20) Glucose Level 124 mg/dL (70-99) Calcium Level 8.6 mg/dL (8.5-10.1) Magnesium Level 1.5 mg/dL (1.8-2.4) Total Bilirubin 0.3 mg/dL (0.2-1.0) Aspartate Amino Transf (AST/SGOT) 15 U/L (15-37) Alanine Aminotransferase (ALT/SGPT) 19 U/L (14-59) Alkaline Phosphatase 116 U/L (46-116) Total Protein 6.1 g/dL (6.4-8.2) Albumin 2.6 g/dL (3.4-5.0) Albumin/Globulin Ratio 0.7 (1.0-1.7) Test 03/31/17 03:30 03/31/17 07:23 White Blood Count 13.6 x10^3/uL (4.0-11.0) Red Blood Count 2.72 x10^6/uL (3.50-5.40) Hemoglobin 8.6 g/dL (12.0-15.5) Hematocrit 25.9 % (36.0-47.0) Mean Corpuscular Volume 95 fL (79-100) Mean Corpuscular Hemoglobin 32 pg (25-35) Mean Corpuscular Hemoglobin Concent 33 g/dL (31-37) Red Cell Distribution Width 15.3 % (11.5-14.5) Platelet Count 427 x10^3/uL (140-400) Neutrophils (%) (Auto) 72 % (31-73) Lymphocytes (%) (Auto) 13 % (24-48) Monocytes (%) (Auto) 12 % (0-9) Eosinophils (%) (Auto) 2 % (0-3) Basophils (%) (Auto) 1 % (0-3) Neutrophils # (Auto) 9.9 x10^3uL (1.8-7.7) Lymphocytes # (Auto) 1.8 x10^3/uL (1.0-4.8) Monocytes # (Auto) 1.6 x10^3/uL (0.0-1.1) Eosinophils # (Auto) 0.3 x10^3/uL (0.0-0.7) Basophils # (Auto) 0.1 x10^3/uL (0.0-0.2) Glucose (Fingerstick) 127 mg/dL (70-99) Laboratory Tests Test 03/30/17 16:43 03/30/17 20:14 03/31/17 03:00 03/31/17 03:30 Glucose (Fingerstick) 139 mg/dL (70-99) 160 mg/dL (70-99) Sodium Level 126 mmol/L (136-145) Potassium Level 4.6 mmol/L (3.5-5.1) Chloride Level 92 mmol/L (98-107) Carbon Dioxide Level 27 mmol/L (21-32) Anion Gap 7 (6-14) Blood Urea Nitrogen 23 mg/dL (7-20) Creatinine 1.3 mg/dL (0.6-1.0) Estimated GFR (Cockcroft-Gault) 41.0 BUN/Creatinine Ratio 18 (6-20) Glucose Level 124 mg/dL (70-99) Calcium Level 8.6 mg/dL (8.5-10.1) Magnesium Level 1.5 mg/dL (1.8-2.4) Total Bilirubin 0.3 mg/dL (0.2-1.0) Aspartate Amino Transf (AST/SGOT) 15 U/L (15-37) Alanine Aminotransferase (ALT/SGPT) 19 U/L (14-59) Alkaline Phosphatase 116 U/L (46-116) Total Protein 6.1 g/dL (6.4-8.2) Albumin 2.6 g/dL (3.4-5.0) Albumin/Globulin Ratio 0.7 (1.0-1.7) White Blood Count 13.6 x10^3/uL (4.0-11.0) Red Blood Count 2.72 x10^6/uL (3.50-5.40) Hemoglobin 8.6 g/dL (12.0-15.5) Hematocrit 25.9 % (36.0-47.0) Mean Corpuscular Volume 95 fL (79-100) Mean Corpuscular Hemoglobin 32 pg (25-35) Mean Corpuscular Hemoglobin Concent 33 g/dL (31-37) Red Cell Distribution Width 15.3 % (11.5-14.5) Platelet Count 427 x10^3/uL (140-400) Neutrophils (%) (Auto) 72 % (31-73) Lymphocytes (%) (Auto) 13 % (24-48) Monocytes (%) (Auto) 12 % (0-9) Eosinophils (%) (Auto) 2 % (0-3) Basophils (%) (Auto) 1 % (0-3) Neutrophils # (Auto) 9.9 x10^3uL (1.8-7.7) Lymphocytes # (Auto) 1.8 x10^3/uL (1.0-4.8) Monocytes # (Auto) 1.6 x10^3/uL (0.0-1.1) Eosinophils # (Auto) 0.3 x10^3/uL (0.0-0.7) Basophils # (Auto) 0.1 x10^3/uL (0.0-0.2) Test 03/31/17 07:23 Glucose (Fingerstick) 127 mg/dL (70-99) Microbiology 03/29/17 Urine Culture - Preliminary, Resulted 03/29/17 Urine Culture Result 1 (ADELAIDA) - Preliminary, Resulted Medications Current Medications Fentanyl Citrate (Fentanyl 2ml Vial) 50 mcg PRN Q15MIN PRN IV PAIN GREATER THAN 3/10 Last administered on 03/30/17 00:01; Start 03/29/17 at 21:15; Stop 03/30/17 at 00:00; Status DC Ondansetron HCl (Zofran) 4 mg 1X ONCE IV Last administered on 03/29/17 21:23 ; Start 03/29/17 at 21:30; Stop 03/29/17 at 21:31; Status DC Furosemide (Lasix) 60 mg 1X ONCE IVP Last administered on 03/29/17 21:27; Start 03/29/17 at 21:30; Stop 03/29/17 at 21:31; Status DC Ondansetron HCl (Zofran) 4 mg PRN Q8HRS PRN IV NAUSEA/VOMITING; Start at 22:30; Stop 03/30/17 at 22:29; Status DC Fentanyl Citrate (Fentanyl 2ml Vial) 50 mcg PRN Q2HR PRN IV SEVERE PAIN Last administered on 03/30/17 20:16; Start 03/29/17 at 22:30; Stop 03/30/17 at 22 :29; Status DC Acetaminophen (Tylenol) 650 mg PRN Q4HRS PRN PO FEVER Last administered on 00:00; Start 03/29/17 at 22:30; Stop 03/30/17 at 22:29; Status DC Ceftriaxone Sodium 1 gm/ Sodium Chloride 50 ml @ 100 mls/hr QHS IV Last administered on 03/30/17 20:26; Start 03/30/17 at 00:00 Info (Do NOT chart on this placeholder) 1 each 1X ONCE MC ; Start 03/30/17 at 01:00; Stop 03/30/17 at 01:01; Status UNV Pneumococcal Polyvalent Vaccine (Do NOT chart on this placeholder) 1 each PRN DAILY PRN MC VERIFICATION NEEDED; Start 03/30/17 at 01:00; Status Cancel Influenza Virus Vaccine Quadrival (Fluarix Quad [id number] Syringe) 0.5 ml ONCE ONCE VAX IM ; Start 03/30/17 at 09:00; Stop 03/30/17 at 09:01; Status Cancel Bisacodyl (Dulcolax Tab) 10 mg PRN DAILY PRN PO CONSTIPATION; Start 03/30/17 at 07:15 Ferrous Sulfate (Feosol) 325 mg DAILYWBKFT PO Last administered on 03/31/17 09:44; Start 03/30/17 at 08:00 Haloperidol (Haldol) 5 mg DAILY PO Last administered on 03/31/17 10:09; Start 03/30/17 at 09:00 Levothyroxine Sodium (Synthroid) 100 mcg DAILY07 PO Last administered on 05:45; Start 03/30/17 at 07:30 Lidocaine (Lidoderm) 3 patch PRN DAILY PRN TD TOPICAL PAIN Last administered on 03/30/17 10:17; Start 03/30/17 at 07:15 Lisinopril (Prinivil) 20 mg DAILY PO ; Start 03/30/17 at 09:00; Stop 03/30/17 at 10:16; Status DC Oxybutynin Chloride (Ditropan) 5 mg DAILY PO Last administered on 03/31/17 09 :49; Start 03/30/17 at 09:00 Non-Formulary Medication 1 puff PRN Q6HRS PRN INH SHORTNESS OF BREATH; Start 03/30/17 at 07:15; Stop 03/30/17 at 07:43; Status DC Vitamin D (Vitamin D3) 500 unit DAILY PO Last administered on 03/31/17 09:44 ; Start 03/30/17 at 09:00 Oxycodone HCl (Roxicodone) 2.5 mg PRN Q6HRS PRN PO PAIN Last administered on 05:45; Start 03/30/17 at 07:45 Ropinirole HCl (Requip) 0.5 mg BID PO Last administered on 03/31/17 09:46; Start 03/30/17 at 09:00 Metoprolol Tartrate (Lopressor) 12.5 mg BID PO ; Start 03/30/17 at 09:00; Stop 03/30/17 at 11:21; Status DC Pantoprazole Sodium (Protonix) 40 mg DAILYAC PO Last administered on 05:45; Start 03/30/17 at 07:30 Vitamin E 200 unit DAILY PO Last administered on 03/31/17 09:46; Start 03/30 at 09:00 Acetaminophen (Tylenol) 650 mg PRN Q6HRS PRN PO PAIN; Start 03/30/17 at 07:45 ; Stop 03/30/17 at 07:45; Status DC Acetaminophen (Tylenol) 325 mg PRN Q6HRS PRN PO PAIN Last administered on 03/30 16:01; Start 03/30/17 at 07:45 Albuterol Sulfate (Ventolin Neb Soln) 2.5 mg PRN Q6HRS PRN NEB SHORTNESS OF BREATH; Start 03/30/17 at 07:45 Nystatin (Nystop) 1 eusebio BID TP Last administered on 03/31/17 09:48; Start at 09:00 Pneumococcal Polyvalent Vaccine (Pneumovax 23) 0.5 ml ONCE ONCE VAX IM ; Start 03/30/17 at 09:30; Stop 03/30/17 at 09:31; Status DC Enoxaparin Sodium (Lovenox 40mg Syringe) 40 mg Q24H SQ Last administered on 10:07; Start 03/30/17 at 09:00; Stop 03/30/17 at 11:06; Status DC Insulin Aspart (NovoLOG) 0-12 UNITS QIDACHS SQ Last administered on 03/30/17 20:25; Start 03/30/17 at 11:30 Albuterol/ Ipratropium (Duoneb) 3 ml RTQID NEB Last administered on 03/31/17 11:19; Start 03/30/17 at 09:15 Guaifenesin (Mucinex) 600 mg BID PO Last administered on 03/31/17 09:45; Start 03/30/17 at 09:30 Sodium Chloride 1,000 ml @ 100 mls/hr 1X ONCE IV Last administered on 10:15; Start 03/30/17 at 10:15; Stop 03/30/17 at 20:14; Status DC Enoxaparin Sodium (Lovenox 60mg Syringe) 60 mg Q12HR SQ Last administered on 09:48; Start 03/30/17 at 21:00 Furosemide (Lasix) 40 mg Q8HRS IVP Last administered on 03/31/17 05:46; Start 03/30/17 at 12:00 Active Scripts Active Citroma (Magnesium Citrate) 296 Ml Solution 296 Ml PO PRN 1X PRN 10 Days Synthroid (Levothyroxine Sodium) 100 Mcg Tablet 100 Mcg PO DAILY07 30 Days Lidocaine 1 Each Adh..patch 3 Patch TD PRN DAILY PRN 30 Days Nystatin 15 Gm Cream..g. 1 Eusebio TP BID 14 Days Flomax (Tamsulosin Hcl) 0.4 Mg Cap.er.24h 0.4 Mg PO QHS 30 Days Hydrocodone-Apap 5-325 (Hydrocodone Bit/Acetaminophen) 1 Each Tablet 1 Tab PO PRN Q4HRS PRN 30 Days Bisacodyl 5 Mg Tablet.dr 10 Mg PO PRN DAILY PRN 30 Days Feosol (Ferrous Sulfate) 325 Mg Tablet 325 Mg PO DAILYWBKFT 30 Days [Metoprolol Tartrate] 25 MG Tablet 12.5 Mg PO BID Reported Oxycodon-Acetaminophen 2.5-325 (Oxycodone Hcl/Acetaminophen) 1 Each Tablet 1 Each PO PRN Q6HRS PRN Proair Hfa Inhaler (Albuterol Sulfate) 8.5 Gm Hfa.aer.ad 1 Puff INH PRN Q6HRS PRN Actos (Pioglitazone Hcl) 15 Mg Tablet 15 Mg PO DAILY Trulicity (Dulaglutide) 0.75 Mg/0.5 Ml Pen.injctr 0.75 Mg SQ Requip (Ropinirole Hcl) 0.5 Mg Tablet 0.5 Mg PO BID Vitamin D3 (Cholecalciferol (Vitamin D3)) 400 Unit Tablet 400 Unit PO DAILY Brovana (Arformoterol Tartrate) 15 Mcg/2 Ml Vial.neb 15 Mcg IH Flovent 220MCG Hfa (Fluticasone Propionate) 12 Gm Aer.w.adap 12 Gm IH Vitamin E 1,000 Unit Capsule 1,000 Unit PO Haloperidol 5 Mg Tablet 5 Mg PO Lipitor (Atorvastatin Calcium) 80 Mg Tablet 80 Mg PO Valacyclovir (Valacyclovir Hcl) 1,000 Mg Tablet 1,000 Mg PO Oxybutynin Chloride 5 Mg Tablet 5 Mg PO Lisinopril 10 Mg Tablet 20 Mg PO Meloxicam 15 Mg Tablet 15 Mg PO Prilosec (Omeprazole) 10 Mg Capsule.dr 20 Mg PO Vitals/I & O Vital Sign - Last 24 Hours 03/30/17 03/30/17 03/30/17 03/30/17 14:06 15:00 16:00 16:05 Temp 98.1 98.1 Pulse 73 Resp 21 B/P (MAP) 93/30 (51) Pulse Ox 98 100 98 98 O2 Delivery Nasal Cannula Nasal Cannula Nasal Cannula Nasal Cannula O2 Flow Rate 3.0 3.0 3.0 3.0 03/30/17 03/30/17 03/30/17 03/30/17 16:15 17:06 17:06 19:22 Temp 97.6 97.6 Pulse 78 Resp 18 B/P (MAP) 92/41 (58) Pulse Ox 96 98 98 90 O2 Delivery Nasal Cannula Nasal Cannula Nasal Cannula Nasal Cannula O2 Flow Rate 2.0 3.0 3.0 3.0 03/30/17 03/30/17 03/30/17 03/30/17 19:50 20:25 21:49 22:08 Temp 97.9 97.8 97.9 97.8 Pulse 78 73 Resp 26 22 B/P (MAP) 91/41 101/40 Pulse Ox 96 O2 Delivery Nasal Cannula Nasal Cannula O2 Flow Rate 3.0 2.0 03/30/17 03/30/17 03/31/17 03/31/17 23:10 23:10 00:10 01:00 Temp 97.8 97.8 98.4 98.4 97.8 97.8 98.4 98.4 Pulse 75 75 73 67 Resp 18 22 20 B/P (MAP) 106/50 106/50 (68) 123/37 86/40 03/31/17 03/31/17 03/31/17 03/31/17 03:27 07:34 07:51 08:36 Temp 97.9 98.1 97.9 98.1 Pulse 72 79 Resp 18 20 B/P (MAP) 100/41 (60) 100/29 (52) Pulse Ox 96 97 96 O2 Delivery Nasal Cannula Nasal Cannula Nasal Cannula Nasal Cannula O2 Flow Rate 3.0 2.0 3.0 3.0 03/31/17 11:19 Pulse Ox 97 O2 Delivery Nasal Cannula O2 Flow Rate 2.0 Intake and Output 03/31/17 03/31/17 04/01/17 15:00 23:00 07:00 Intake Total 450 ml Balance 450 ml NORBERTO GARCIA MD Mar 31, 2017 11:31
--- NOTE | 2017-03-31 12:11 | PDOC ---
PROGRESS NOTES Subjective Subjective The patient is mildly less short of breath today. Objective Objective Vital Signs Date Time Temp Pulse Resp B/P (MAP) Pulse Ox O2 Delivery O2 Flow Rate FiO2 03/31/17 11:38 20 97 Nasal Cannula 2.0 03/31/17 11:36 97.9 85 100/35 (56) 97.9 Intake and Output 04/01/17 07:00 Intake Total 450 ml Balance 450 ml Intake Oral 450 ml Physical Exam Abdomen: Normal bowel sounds Heart: Regular rate General: mild distress Lungs: Other (mildly decreased breath sounds) Assessment Assessment Problems Medical Problems: (1) Congestive heart failure Status: Acute (2) COPD (chronic obstructive pulmonary disease) Status: Acute (3) Hyponatremia Status: Acute (4) Moderate protein malnutrition Status: Acute (5) Morbid obesity Status: Acute (6) Urinary tract infection Status: Acute ASSESSMENT/PLAN 1. Dyspnea: more from COPD and anemia. BNP mildly elevated, no pulmonary vascular congestion. Improving on present treatments. 2. Acute on chronic diastolic CHF: right sided and mild/pulmonary induced. Recent TTE with normal EF and wall motion 3. Hypotension: Improved 4. Dependent Bilateral LE edema: Suspect venous insufficiency likely from venous compression from sitting all the time, unable to lay flat due to lower back, and morbid obesity 5. Anemia: Hgb 7.7 with underlying hx of myelodysplasia. 6. RADHA/Hyponatremia: monitoring 7. AECOPD/moderate pulmonary HTN: progressive increase in sputum and coughing. Improved today 8. Morbid obesity with likely undiagnosed GENIA 9. Possible UTI 10. S//P Lumbar hemilaminotomy and microdiscectomy: 03/14/2017 Comment Review of Relevant I have reviewed the following items hitesh (where applicable) has been applied. Labs Laboratory Tests Test 03/29/17 21:45 03/29/17 22:00 03/30/17 04:00 03/30/17 08:11 White Blood Count 17.8 x10^3/uL (4.0-11.0) 15.9 x10^3/uL (4.0-11.0) Red Blood Count 2.83 x10^6/uL (3.50-5.40) 2.43 x10^6/uL (3.50-5.40) Hemoglobin 9.0 g/dL (12.0-15.5) 7.7 g/dL (12.0-15.5) Hematocrit 27.0 % (36.0-47.0) 22.9 % (36.0-47.0) Mean Corpuscular Volume 95 fL (79-100) 94 fL (79-100) Mean Corpuscular Hemoglobin 32 pg (25-35) 32 pg (25-35) Mean Corpuscular Hemoglobin Concent 33 g/dL (31-37) 34 g/dL (31-37) Red Cell Distribution Width 14.6 % (11.5-14.5) 14.7 % (11.5-14.5) Platelet Count 506 x10^3/uL (140-400) 452 x10^3/uL (140-400) Neutrophils (%) (Auto) 87 % (31-73) 83 % (31-73) Lymphocytes (%) (Auto) 4 % (24-48) 7 % (24-48) Monocytes (%) (Auto) 8 % (0-9) 9 % (0-9) Eosinophils (%) (Auto) 0 % (0-3) 1 % (0-3) Basophils (%) (Auto) 0 % (0-3) 0 % (0-3) Neutrophils # (Auto) 15.4 x10^3uL (1.8-7.7) 13.2 x10^3uL (1.8-7.7) Lymphocytes # (Auto) 0.8 x10^3/uL (1.0-4.8) 1.0 x10^3/uL (1.0-4.8) Monocytes # (Auto) 1.4 x10^3/uL (0.0-1.1) 1.5 x10^3/uL (0.0-1.1) Eosinophils # (Auto) 0.1 x10^3/uL (0.0-0.7) 0.2 x10^3/uL (0.0-0.7) Basophils # (Auto) 0.1 x10^3/uL (0.0-0.2) 0.0 x10^3/uL (0.0-0.2) Segmented Neutrophils % 85 % (35-66) Lymphocytes % 8 % (24-48) Monocytes % 7 % (0-10) Platelet Estimate Increased (ADEQUATE) Poikilocytosis Slight Schistocytes Occ Sodium Level 124 mmol/L (136-145) 123 mmol/L (136-145) Potassium Level 4.4 mmol/L (3.5-5.1) 4.4 mmol/L (3.5-5.1) Chloride Level 89 mmol/L (98-107) 90 mmol/L (98-107) Carbon Dioxide Level 28 mmol/L (21-32) 27 mmol/L (21-32) Anion Gap 7 (6-14) 6 (6-14) Blood Urea Nitrogen 25 mg/dL (7-20) 24 mg/dL (7-20) Creatinine 1.5 mg/dL (0.6-1.0) 1.4 mg/dL (0.6-1.0) Estimated GFR (Cockcroft-Gault) 34.7 37.6 BUN/Creatinine Ratio 17 (6-20) Glucose Level 104 mg/dL (70-99) 83 mg/dL (70-99) Calcium Level 8.8 mg/dL (8.5-10.1) 8.4 mg/dL (8.5-10.1) Total Bilirubin 0.5 mg/dL (0.2-1.0) Aspartate Amino Transf (AST/SGOT) 16 U/L (15-37) Alanine Aminotransferase (ALT/SGPT) 26 U/L (14-59) Alkaline Phosphatase 141 U/L (46-116) Creatine Kinase 127 U/L (26-192) Creatine Kinase MB (Mass) 1.4 ng/mL (0.0-3.6) Creatine Kinase MB Relative Index 1.1 % (0-4) Troponin I Quantitative < 0.017 ng/mL (0.000-0.055) MN-Ryh-R-Type Natriuretic Peptide 558 pg/mL (0-124) Total Protein 6.0 g/dL (6.4-8.2) Albumin 2.9 g/dL (3.4-5.0) Albumin/Globulin Ratio 0.9 (1.0-1.7) Urine Collection Type Unknown Urine Color Yellow Urine Clarity Clear Urine pH 5.5 Urine Specific [place] 1.010 Urine Protein Negative mg/dL (NEG-TRACE) Urine Glucose (UA) Negative mg/dL (NEG) Urine Ketones (Stick) Negative mg/dL (NEG) Urine Blood Negative (NEG) Urine Nitrite Negative (NEG) Urine Bilirubin Negative (NEG) Urine Urobilinogen Dipstick 0.2 mg/dL (0.2 mg/dL) Urine Leukocyte Esterase Large (NEG) Urine RBC Occ /HPF (0-2) Urine WBC >40 /HPF (0-4) Urine Bacteria Many /HPF (0-FEW) Glucose (Fingerstick) 94 mg/dL (70-99) Test 03/30/17 10:20 03/30/17 16:43 03/30/17 20:14 03/31/17 03:00 Glucose (Fingerstick) 87 mg/dL (70-99) 139 mg/dL (70-99) 160 mg/dL (70-99) Sodium Level 126 mmol/L (136-145) Potassium Level 4.6 mmol/L (3.5-5.1) Chloride Level 92 mmol/L (98-107) Carbon Dioxide Level 27 mmol/L (21-32) Anion Gap 7 (6-14) Blood Urea Nitrogen 23 mg/dL (7-20) Creatinine 1.3 mg/dL (0.6-1.0) Estimated GFR (Cockcroft-Gault) 41.0 BUN/Creatinine Ratio 18 (6-20) Glucose Level 124 mg/dL (70-99) Calcium Level 8.6 mg/dL (8.5-10.1) Magnesium Level 1.5 mg/dL (1.8-2.4) Total Bilirubin 0.3 mg/dL (0.2-1.0) Aspartate Amino Transf (AST/SGOT) 15 U/L (15-37) Alanine Aminotransferase (ALT/SGPT) 19 U/L (14-59) Alkaline Phosphatase 116 U/L (46-116) Total Protein 6.1 g/dL (6.4-8.2) Albumin 2.6 g/dL (3.4-5.0) Albumin/Globulin Ratio 0.7 (1.0-1.7) Test 03/31/17 03:30 03/31/17 07:23 White Blood Count 13.6 x10^3/uL (4.0-11.0) Red Blood Count 2.72 x10^6/uL (3.50-5.40) Hemoglobin 8.6 g/dL (12.0-15.5) Hematocrit 25.9 % (36.0-47.0) Mean Corpuscular Volume 95 fL (79-100) Mean Corpuscular Hemoglobin 32 pg (25-35) Mean Corpuscular Hemoglobin Concent 33 g/dL (31-37) Red Cell Distribution Width 15.3 % (11.5-14.5) Platelet Count 427 x10^3/uL (140-400) Neutrophils (%) (Auto) 72 % (31-73) Lymphocytes (%) (Auto) 13 % (24-48) Monocytes (%) (Auto) 12 % (0-9) Eosinophils (%) (Auto) 2 % (0-3) Basophils (%) (Auto) 1 % (0-3) Neutrophils # (Auto) 9.9 x10^3uL (1.8-7.7) Lymphocytes # (Auto) 1.8 x10^3/uL (1.0-4.8) Monocytes # (Auto) 1.6 x10^3/uL (0.0-1.1) Eosinophils # (Auto) 0.3 x10^3/uL (0.0-0.7) Basophils # (Auto) 0.1 x10^3/uL (0.0-0.2) Glucose (Fingerstick) 127 mg/dL (70-99) Laboratory Tests Test 03/30/17 16:43 03/30/17 20:14 03/31/17 03:00 03/31/17 03:30 Glucose (Fingerstick) 139 mg/dL (70-99) 160 mg/dL (70-99) Sodium Level 126 mmol/L (136-145) Potassium Level 4.6 mmol/L (3.5-5.1) Chloride Level 92 mmol/L (98-107) Carbon Dioxide Level 27 mmol/L (21-32) Anion Gap 7 (6-14) Blood Urea Nitrogen 23 mg/dL (7-20) Creatinine 1.3 mg/dL (0.6-1.0) Estimated GFR (Cockcroft-Gault) 41.0 BUN/Creatinine Ratio 18 (6-20) Glucose Level 124 mg/dL (70-99) Calcium Level 8.6 mg/dL (8.5-10.1) Magnesium Level 1.5 mg/dL (1.8-2.4) Total Bilirubin 0.3 mg/dL (0.2-1.0) Aspartate Amino Transf (AST/SGOT) 15 U/L (15-37) Alanine Aminotransferase (ALT/SGPT) 19 U/L (14-59) Alkaline Phosphatase 116 U/L (46-116) Total Protein 6.1 g/dL (6.4-8.2) Albumin 2.6 g/dL (3.4-5.0) Albumin/Globulin Ratio 0.7 (1.0-1.7) White Blood Count 13.6 x10^3/uL (4.0-11.0) Red Blood Count 2.72 x10^6/uL (3.50-5.40) Hemoglobin 8.6 g/dL (12.0-15.5) Hematocrit 25.9 % (36.0-47.0) Mean Corpuscular Volume 95 fL (79-100) Mean Corpuscular Hemoglobin 32 pg (25-35) Mean Corpuscular Hemoglobin Concent 33 g/dL (31-37) Red Cell Distribution Width 15.3 % (11.5-14.5) Platelet Count 427 x10^3/uL (140-400) Neutrophils (%) (Auto) 72 % (31-73) Lymphocytes (%) (Auto) 13 % (24-48) Monocytes (%) (Auto) 12 % (0-9) Eosinophils (%) (Auto) 2 % (0-3) Basophils (%) (Auto) 1 % (0-3) Neutrophils # (Auto) 9.9 x10^3uL (1.8-7.7) Lymphocytes # (Auto) 1.8 x10^3/uL (1.0-4.8) Monocytes # (Auto) 1.6 x10^3/uL (0.0-1.1) Eosinophils # (Auto) 0.3 x10^3/uL (0.0-0.7) Basophils # (Auto) 0.1 x10^3/uL (0.0-0.2) Test 03/31/17 07:23 Glucose (Fingerstick) 127 mg/dL (70-99) Microbiology 03/29/17 Urine Culture - Preliminary, Resulted 03/29/17 Urine Culture Result 1 (ADELAIDA) - Preliminary, Resulted Medications Current Medications Fentanyl Citrate (Fentanyl 2ml Vial) 50 mcg PRN Q15MIN PRN IV PAIN GREATER THAN 3/10 Last administered on 03/30/17 00:01; Start 03/29/17 at 21:15; Stop 03/30/17 at 00:00; Status DC Ondansetron HCl (Zofran) 4 mg 1X ONCE IV Last administered on 03/29/17 21:23 ; Start 03/29/17 at 21:30; Stop 03/29/17 at 21:31; Status DC Furosemide (Lasix) 60 mg 1X ONCE IVP Last administered on 03/29/17 21:27; Start 03/29/17 at 21:30; Stop 03/29/17 at 21:31; Status DC Ondansetron HCl (Zofran) 4 mg PRN Q8HRS PRN IV NAUSEA/VOMITING; Start at 22:30; Stop 03/30/17 at 22:29; Status DC Fentanyl Citrate (Fentanyl 2ml Vial) 50 mcg PRN Q2HR PRN IV SEVERE PAIN Last administered on 03/30/17 20:16; Start 03/29/17 at 22:30; Stop 03/30/17 at 22 :29; Status DC Acetaminophen (Tylenol) 650 mg PRN Q4HRS PRN PO FEVER Last administered on 00:00; Start 03/29/17 at 22:30; Stop 03/30/17 at 22:29; Status DC Ceftriaxone Sodium 1 gm/ Sodium Chloride 50 ml @ 100 mls/hr QHS IV Last administered on 03/30/17 20:26; Start 03/30/17 at 00:00 Info (Do NOT chart on this placeholder) 1 each 1X ONCE MC ; Start 03/30/17 at 01:00; Stop 03/30/17 at 01:01; Status UNV Pneumococcal Polyvalent Vaccine (Do NOT chart on this placeholder) 1 each PRN DAILY PRN MC VERIFICATION NEEDED; Start 03/30/17 at 01:00; Status Cancel Influenza Virus Vaccine Quadrival (Fluarix Quad [id number] Syringe) 0.5 ml ONCE ONCE VAX IM ; Start 03/30/17 at 09:00; Stop 03/30/17 at 09:01; Status Cancel Bisacodyl (Dulcolax Tab) 10 mg PRN DAILY PRN PO CONSTIPATION; Start 03/30/17 at 07:15 Ferrous Sulfate (Feosol) 325 mg DAILYWBKFT PO Last administered on 03/31/17 09:44; Start 03/30/17 at 08:00 Haloperidol (Haldol) 5 mg DAILY PO Last administered on 03/31/17 10:09; Start 03/30/17 at 09:00 Levothyroxine Sodium (Synthroid) 100 mcg DAILY07 PO Last administered on 05:45; Start 03/30/17 at 07:30 Lidocaine (Lidoderm) 3 patch PRN DAILY PRN TD TOPICAL PAIN Last administered on 03/30/17 10:17; Start 03/30/17 at 07:15 Lisinopril (Prinivil) 20 mg DAILY PO ; Start 03/30/17 at 09:00; Stop 03/30/17 at 10:16; Status DC Oxybutynin Chloride (Ditropan) 5 mg DAILY PO Last administered on 03/31/17 09 :49; Start 03/30/17 at 09:00 Non-Formulary Medication 1 puff PRN Q6HRS PRN INH SHORTNESS OF BREATH; Start 03/30/17 at 07:15; Stop 03/30/17 at 07:43; Status DC Vitamin D (Vitamin D3) 500 unit DAILY PO Last administered on 03/31/17 09:44 ; Start 03/30/17 at 09:00 Oxycodone HCl (Roxicodone) 2.5 mg PRN Q6HRS PRN PO PAIN Last administered on 05:45; Start 03/30/17 at 07:45 Ropinirole HCl (Requip) 0.5 mg BID PO Last administered on 03/31/17 09:46; Start 03/30/17 at 09:00 Metoprolol Tartrate (Lopressor) 12.5 mg BID PO ; Start 03/30/17 at 09:00; Stop 03/30/17 at 11:21; Status DC Pantoprazole Sodium (Protonix) 40 mg DAILYAC PO Last administered on 05:45; Start 03/30/17 at 07:30 Vitamin E 200 unit DAILY PO Last administered on 03/31/17 09:46; Start 03/30 at 09:00 Acetaminophen (Tylenol) 650 mg PRN Q6HRS PRN PO PAIN; Start 03/30/17 at 07:45 ; Stop 03/30/17 at 07:45; Status DC Acetaminophen (Tylenol) 325 mg PRN Q6HRS PRN PO PAIN Last administered on 03/30 16:01; Start 03/30/17 at 07:45 Albuterol Sulfate (Ventolin Neb Soln) 2.5 mg PRN Q6HRS PRN NEB SHORTNESS OF BREATH; Start 03/30/17 at 07:45 Nystatin (Nystop) 1 eusebio BID TP Last administered on 03/31/17 09:48; Start at 09:00 Pneumococcal Polyvalent Vaccine (Pneumovax 23) 0.5 ml ONCE ONCE VAX IM ; Start 03/30/17 at 09:30; Stop 03/30/17 at 09:31; Status DC Enoxaparin Sodium (Lovenox 40mg Syringe) 40 mg Q24H SQ Last administered on 10:07; Start 03/30/17 at 09:00; Stop 03/30/17 at 11:06; Status DC Insulin Aspart (NovoLOG) 0-12 UNITS QIDACHS SQ Last administered on 03/30/17 20:25; Start 03/30/17 at 11:30 Albuterol/ Ipratropium (Duoneb) 3 ml RTQID NEB Last administered on 03/31/17 11:19; Start 03/30/17 at 09:15 Guaifenesin (Mucinex) 600 mg BID PO Last administered on 03/31/17 09:45; Start 03/30/17 at 09:30 Sodium Chloride 1,000 ml @ 100 mls/hr 1X ONCE IV Last administered on 10:15; Start 03/30/17 at 10:15; Stop 03/30/17 at 20:14; Status DC Enoxaparin Sodium (Lovenox 60mg Syringe) 60 mg Q12HR SQ Last administered on 09:48; Start 03/30/17 at 21:00 Furosemide (Lasix) 40 mg Q8HRS IVP Last administered on 03/31/17 05:46; Start 03/30/17 at 12:00 Oxycodone HCl (Roxicodone) 5 mg PRN Q6HRS PRN PO PAIN Last administered on 11:38; Start 03/31/17 at 11:30 Docusate Sodium (Colace) 100 mg BID PO ; Start 03/31/17 at 12:00 Active Scripts Active Citroma (Magnesium Citrate) 296 Ml Solution 296 Ml PO PRN 1X PRN 10 Days Synthroid (Levothyroxine Sodium) 100 Mcg Tablet 100 Mcg PO DAILY07 30 Days Lidocaine 1 Each Adh..patch 3 Patch TD PRN DAILY PRN 30 Days Nystatin 15 Gm Cream..g. 1 Eusebio TP BID 14 Days Flomax (Tamsulosin Hcl) 0.4 Mg Cap.er.24h 0.4 Mg PO QHS 30 Days Hydrocodone-Apap 5-325 (Hydrocodone Bit/Acetaminophen) 1 Each Tablet 1 Tab PO PRN Q4HRS PRN 30 Days Bisacodyl 5 Mg Tablet.dr 10 Mg PO PRN DAILY PRN 30 Days Feosol (Ferrous Sulfate) 325 Mg Tablet 325 Mg PO DAILYWBKFT 30 Days [Metoprolol Tartrate] 25 MG Tablet 12.5 Mg PO BID Reported Oxycodon-Acetaminophen 2.5-325 (Oxycodone Hcl/Acetaminophen) 1 Each Tablet 1 Each PO PRN Q6HRS PRN Proair Hfa Inhaler (Albuterol Sulfate) 8.5 Gm Hfa.aer.ad 1 Puff INH PRN Q6HRS PRN Actos (Pioglitazone Hcl) 15 Mg Tablet 15 Mg PO DAILY Trulicity (Dulaglutide) 0.75 Mg/0.5 Ml Pen.injctr 0.75 Mg SQ Requip (Ropinirole Hcl) 0.5 Mg Tablet 0.5 Mg PO BID Vitamin D3 (Cholecalciferol (Vitamin D3)) 400 Unit Tablet 400 Unit PO DAILY Brovana (Arformoterol Tartrate) 15 Mcg/2 Ml Vial.neb 15 Mcg IH Flovent 220MCG Hfa (Fluticasone Propionate) 12 Gm Aer.w.adap 12 Gm IH Vitamin E 1,000 Unit Capsule 1,000 Unit PO Haloperidol 5 Mg Tablet 5 Mg PO Lipitor (Atorvastatin Calcium) 80 Mg Tablet 80 Mg PO Valacyclovir (Valacyclovir Hcl) 1,000 Mg Tablet 1,000 Mg PO Oxybutynin Chloride 5 Mg Tablet 5 Mg PO Lisinopril 10 Mg Tablet 20 Mg PO Meloxicam 15 Mg Tablet 15 Mg PO Prilosec (Omeprazole) 10 Mg Capsule.dr 20 Mg PO Vitals/I & O Vital Sign - Last 24 Hours 03/30/17 03/30/17 03/30/17 03/30/17 14:06 15:00 16:00 16:05 Temp 98.1 98.1 Pulse 73 Resp 21 B/P (MAP) 93/30 (51) Pulse Ox 98 100 98 98 O2 Delivery Nasal Cannula Nasal Cannula Nasal Cannula Nasal Cannula O2 Flow Rate 3.0 3.0 3.0 3.0 03/30/17 03/30/17 03/30/17 03/30/17 16:15 17:06 17:06 19:22 Temp 97.6 97.6 Pulse 78 Resp 18 B/P (MAP) 92/41 (58) Pulse Ox 96 98 98 90 O2 Delivery Nasal Cannula Nasal Cannula Nasal Cannula Nasal Cannula O2 Flow Rate 2.0 3.0 3.0 3.0 03/30/17 03/30/17 03/30/17 03/30/17 19:50 20:25 21:49 22:08 Temp 97.9 97.8 97.9 97.8 Pulse 78 73 Resp 26 22 B/P (MAP) 91/41 101/40 Pulse Ox 96 O2 Delivery Nasal Cannula Nasal Cannula O2 Flow Rate 3.0 2.0 03/30/17 03/30/17 03/31/17 03/31/17 23:10 23:10 00:10 01:00 Temp 97.8 97.8 98.4 98.4 97.8 97.8 98.4 98.4 Pulse 75 75 73 67 Resp 18 22 20 B/P (MAP) 106/50 106/50 (68) 123/37 86/40 03/31/17 03/31/17 03/31/17 03/31/17 03:27 07:34 07:42 07:51 Temp 97.9 98.1 97.9 98.1 Pulse 72 79 Resp 18 20 B/P (MAP) 100/41 (60) 100/29 (52) Pulse Ox 96 97 96 O2 Delivery Nasal Cannula Nasal Cannula Nasal Cannula Nasal Cannula O2 Flow Rate 3.0 2.0 3.0 3.0 03/31/17 03/31/17 03/31/17 03/31/17 08:36 11:19 11:36 11:38 Temp 97.9 97.9 Pulse 85 Resp 20 20 B/P (MAP) 100/35 (56) Pulse Ox 97 94 97 O2 Delivery Nasal Cannula Nasal Cannula Nasal Cannula Nasal Cannula O2 Flow Rate 3.0 2.0 3.0 2.0 Intake and Output 03/31/17 03/31/17 04/01/17 15:00 23:00 07:00 Intake Total 450 ml Balance 450 ml GAGE STRICKLAND MD Mar 31, 2017 12:11
[2017-03-31] MEDS: DOCUSATE SODIUM 100 MG CAPSULE. PO SCH ×2 (13:35→20:42)
--- NOTE | 2017-03-31 15:22 | PDOC ---
PROGRESS NOTES Subjective Subjective SEEN IN FOLLOW UP OF CKD3 AND HYPONTREMIA Objective Objective Vital Signs Date Time Temp Pulse Resp B/P (MAP) Pulse Ox O2 Delivery O2 Flow Rate FiO2 03/31/17 12:38 18 97 Nasal Cannula 2.0 03/31/17 11:36 97.9 85 100/35 (56) 97.9 Intake and Output 04/01/17 07:00 Intake Total 850 ml Output Total 925 ml Balance -75 ml Intake Oral 850 ml Output Urine Total 925 ml Physical Exam Abdomen: Normal bowel sounds, Soft, No tenderness, No hepatosplenomegaly, No masses Heart: Regular rate, Normal S1, Normal S2, No murmurs, Gallops Extremities: Other (4+ BLE BRAWNEY EDEMA) General: Alert, Oriented X3, Cooperative, No acute distress Lungs: Clear to auscultation, Normal air movement Psych/Mental Status: Mental status NL, Mood NL Diagnosis RENAL FAILURE: Chronic (CKD stage III), Other (EDEMA) Other HYPONATREMIA Assessment Assessment Problems Medical Problems: (1) Congestive heart failure Status: Acute (2) COPD (chronic obstructive pulmonary disease) Status: Acute (3) Hyponatremia Status: Acute (4) Moderate protein malnutrition Status: Acute (5) Morbid obesity Status: Acute (6) Urinary tract infection Status: Acute Plan Plan of Care RENAL FUNCTION AND SERUM SODIUM ARE BETTER. STILL EDEMATOUS. CONT OT WORK OF FLUID BALANCE Comment Review of Relevant I have reviewed the following items hitesh (where applicable) has been applied. Labs Laboratory Tests Test 03/29/17 21:45 03/29/17 22:00 03/30/17 04:00 03/30/17 08:11 White Blood Count 17.8 x10^3/uL (4.0-11.0) 15.9 x10^3/uL (4.0-11.0) Red Blood Count 2.83 x10^6/uL (3.50-5.40) 2.43 x10^6/uL (3.50-5.40) Hemoglobin 9.0 g/dL (12.0-15.5) 7.7 g/dL (12.0-15.5) Hematocrit 27.0 % (36.0-47.0) 22.9 % (36.0-47.0) Mean Corpuscular Volume 95 fL (79-100) 94 fL (79-100) Mean Corpuscular Hemoglobin 32 pg (25-35) 32 pg (25-35) Mean Corpuscular Hemoglobin Concent 33 g/dL (31-37) 34 g/dL (31-37) Red Cell Distribution Width 14.6 % (11.5-14.5) 14.7 % (11.5-14.5) Platelet Count 506 x10^3/uL (140-400) 452 x10^3/uL (140-400) Neutrophils (%) (Auto) 87 % (31-73) 83 % (31-73) Lymphocytes (%) (Auto) 4 % (24-48) 7 % (24-48) Monocytes (%) (Auto) 8 % (0-9) 9 % (0-9) Eosinophils (%) (Auto) 0 % (0-3) 1 % (0-3) Basophils (%) (Auto) 0 % (0-3) 0 % (0-3) Neutrophils # (Auto) 15.4 x10^3uL (1.8-7.7) 13.2 x10^3uL (1.8-7.7) Lymphocytes # (Auto) 0.8 x10^3/uL (1.0-4.8) 1.0 x10^3/uL (1.0-4.8) Monocytes # (Auto) 1.4 x10^3/uL (0.0-1.1) 1.5 x10^3/uL (0.0-1.1) Eosinophils # (Auto) 0.1 x10^3/uL (0.0-0.7) 0.2 x10^3/uL (0.0-0.7) Basophils # (Auto) 0.1 x10^3/uL (0.0-0.2) 0.0 x10^3/uL (0.0-0.2) Segmented Neutrophils % 85 % (35-66) Lymphocytes % 8 % (24-48) Monocytes % 7 % (0-10) Platelet Estimate Increased (ADEQUATE) Poikilocytosis Slight Schistocytes Occ Sodium Level 124 mmol/L (136-145) 123 mmol/L (136-145) Potassium Level 4.4 mmol/L (3.5-5.1) 4.4 mmol/L (3.5-5.1) Chloride Level 89 mmol/L (98-107) 90 mmol/L (98-107) Carbon Dioxide Level 28 mmol/L (21-32) 27 mmol/L (21-32) Anion Gap 7 (6-14) 6 (6-14) Blood Urea Nitrogen 25 mg/dL (7-20) 24 mg/dL (7-20) Creatinine 1.5 mg/dL (0.6-1.0) 1.4 mg/dL (0.6-1.0) Estimated GFR (Cockcroft-Gault) 34.7 37.6 BUN/Creatinine Ratio 17 (6-20) Glucose Level 104 mg/dL (70-99) 83 mg/dL (70-99) Calcium Level 8.8 mg/dL (8.5-10.1) 8.4 mg/dL (8.5-10.1) Total Bilirubin 0.5 mg/dL (0.2-1.0) Aspartate Amino Transf (AST/SGOT) 16 U/L (15-37) Alanine Aminotransferase (ALT/SGPT) 26 U/L (14-59) Alkaline Phosphatase 141 U/L (46-116) Creatine Kinase 127 U/L (26-192) Creatine Kinase MB (Mass) 1.4 ng/mL (0.0-3.6) Creatine Kinase MB Relative Index 1.1 % (0-4) Troponin I Quantitative < 0.017 ng/mL (0.000-0.055) IA-Ony-W-Type Natriuretic Peptide 558 pg/mL (0-124) Total Protein 6.0 g/dL (6.4-8.2) Albumin 2.9 g/dL (3.4-5.0) Albumin/Globulin Ratio 0.9 (1.0-1.7) Urine Collection Type Unknown Urine Color Yellow Urine Clarity Clear Urine pH 5.5 Urine Specific [place] 1.010 Urine Protein Negative mg/dL (NEG-TRACE) Urine Glucose (UA) Negative mg/dL (NEG) Urine Ketones (Stick) Negative mg/dL (NEG) Urine Blood Negative (NEG) Urine Nitrite Negative (NEG) Urine Bilirubin Negative (NEG) Urine Urobilinogen Dipstick 0.2 mg/dL (0.2 mg/dL) Urine Leukocyte Esterase Large (NEG) Urine RBC Occ /HPF (0-2) Urine WBC >40 /HPF (0-4) Urine Bacteria Many /HPF (0-FEW) Glucose (Fingerstick) 94 mg/dL (70-99) Test 03/30/17 10:20 03/30/17 16:43 03/30/17 20:14 03/31/17 03:00 Glucose (Fingerstick) 87 mg/dL (70-99) 139 mg/dL (70-99) 160 mg/dL (70-99) Sodium Level 126 mmol/L (136-145) Potassium Level 4.6 mmol/L (3.5-5.1) Chloride Level 92 mmol/L (98-107) Carbon Dioxide Level 27 mmol/L (21-32) Anion Gap 7 (6-14) Blood Urea Nitrogen 23 mg/dL (7-20) Creatinine 1.3 mg/dL (0.6-1.0) Estimated GFR (Cockcroft-Gault) 41.0 BUN/Creatinine Ratio 18 (6-20) Glucose Level 124 mg/dL (70-99) Calcium Level 8.6 mg/dL (8.5-10.1) Magnesium Level 1.5 mg/dL (1.8-2.4) Total Bilirubin 0.3 mg/dL (0.2-1.0) Aspartate Amino Transf (AST/SGOT) 15 U/L (15-37) Alanine Aminotransferase (ALT/SGPT) 19 U/L (14-59) Alkaline Phosphatase 116 U/L (46-116) Total Protein 6.1 g/dL (6.4-8.2) Albumin 2.6 g/dL (3.4-5.0) Albumin/Globulin Ratio 0.7 (1.0-1.7) Test 03/31/17 03:30 03/31/17 07:23 03/31/17 11:27 White Blood Count 13.6 x10^3/uL (4.0-11.0) Red Blood Count 2.72 x10^6/uL (3.50-5.40) Hemoglobin 8.6 g/dL (12.0-15.5) Hematocrit 25.9 % (36.0-47.0) Mean Corpuscular Volume 95 fL (79-100) Mean Corpuscular Hemoglobin 32 pg (25-35) Mean Corpuscular Hemoglobin Concent 33 g/dL (31-37) Red Cell Distribution Width 15.3 % (11.5-14.5) Platelet Count 427 x10^3/uL (140-400) Neutrophils (%) (Auto) 72 % (31-73) Lymphocytes (%) (Auto) 13 % (24-48) Monocytes (%) (Auto) 12 % (0-9) Eosinophils (%) (Auto) 2 % (0-3) Basophils (%) (Auto) 1 % (0-3) Neutrophils # (Auto) 9.9 x10^3uL (1.8-7.7) Lymphocytes # (Auto) 1.8 x10^3/uL (1.0-4.8) Monocytes # (Auto) 1.6 x10^3/uL (0.0-1.1) Eosinophils # (Auto) 0.3 x10^3/uL (0.0-0.7) Basophils # (Auto) 0.1 x10^3/uL (0.0-0.2) Glucose (Fingerstick) 127 mg/dL (70-99) 142 mg/dL (70-99) Laboratory Tests Test 03/30/17 16:43 03/30/17 20:14 03/31/17 03:00 03/31/17 03:30 Glucose (Fingerstick) 139 mg/dL (70-99) 160 mg/dL (70-99) Sodium Level 126 mmol/L (136-145) Potassium Level 4.6 mmol/L (3.5-5.1) Chloride Level 92 mmol/L (98-107) Carbon Dioxide Level 27 mmol/L (21-32) Anion Gap 7 (6-14) Blood Urea Nitrogen 23 mg/dL (7-20) Creatinine 1.3 mg/dL (0.6-1.0) Estimated GFR (Cockcroft-Gault) 41.0 BUN/Creatinine Ratio 18 (6-20) Glucose Level 124 mg/dL (70-99) Calcium Level 8.6 mg/dL (8.5-10.1) Magnesium Level 1.5 mg/dL (1.8-2.4) Total Bilirubin 0.3 mg/dL (0.2-1.0) Aspartate Amino Transf (AST/SGOT) 15 U/L (15-37) Alanine Aminotransferase (ALT/SGPT) 19 U/L (14-59) Alkaline Phosphatase 116 U/L (46-116) Total Protein 6.1 g/dL (6.4-8.2) Albumin 2.6 g/dL (3.4-5.0) Albumin/Globulin Ratio 0.7 (1.0-1.7) White Blood Count 13.6 x10^3/uL (4.0-11.0) Red Blood Count 2.72 x10^6/uL (3.50-5.40) Hemoglobin 8.6 g/dL (12.0-15.5) Hematocrit 25.9 % (36.0-47.0) Mean Corpuscular Volume 95 fL (79-100) Mean Corpuscular Hemoglobin 32 pg (25-35) Mean Corpuscular Hemoglobin Concent 33 g/dL (31-37) Red Cell Distribution Width 15.3 % (11.5-14.5) Platelet Count 427 x10^3/uL (140-400) Neutrophils (%) (Auto) 72 % (31-73) Lymphocytes (%) (Auto) 13 % (24-48) Monocytes (%) (Auto) 12 % (0-9) Eosinophils (%) (Auto) 2 % (0-3) Basophils (%) (Auto) 1 % (0-3) Neutrophils # (Auto) 9.9 x10^3uL (1.8-7.7) Lymphocytes # (Auto) 1.8 x10^3/uL (1.0-4.8) Monocytes # (Auto) 1.6 x10^3/uL (0.0-1.1) Eosinophils # (Auto) 0.3 x10^3/uL (0.0-0.7) Basophils # (Auto) 0.1 x10^3/uL (0.0-0.2) Test 03/31/17 07:23 03/31/17 11:27 Glucose (Fingerstick) 127 mg/dL (70-99) 142 mg/dL (70-99) Microbiology 03/29/17 Urine Culture - Preliminary, Resulted 03/29/17 Urine Culture Result 1 (ADELAIDA) - Preliminary, Resulted Medications Current Medications Fentanyl Citrate (Fentanyl 2ml Vial) 50 mcg PRN Q15MIN PRN IV PAIN GREATER THAN 3/10 Last administered on 03/30/17 00:01; Start 03/29/17 at 21:15; Stop 03/30/17 at 00:00; Status DC Ondansetron HCl (Zofran) 4 mg 1X ONCE IV Last administered on 03/29/17 21:23 ; Start 03/29/17 at 21:30; Stop 03/29/17 at 21:31; Status DC Furosemide (Lasix) 60 mg 1X ONCE IVP Last administered on 03/29/17 21:27; Start 03/29/17 at 21:30; Stop 03/29/17 at 21:31; Status DC Ondansetron HCl (Zofran) 4 mg PRN Q8HRS PRN IV NAUSEA/VOMITING; Start at 22:30; Stop 03/30/17 at 22:29; Status DC Fentanyl Citrate (Fentanyl 2ml Vial) 50 mcg PRN Q2HR PRN IV SEVERE PAIN Last administered on 03/30/17 20:16; Start 03/29/17 at 22:30; Stop 03/30/17 at 22 :29; Status DC Acetaminophen (Tylenol) 650 mg PRN Q4HRS PRN PO FEVER Last administered on 00:00; Start 03/29/17 at 22:30; Stop 03/30/17 at 22:29; Status DC Ceftriaxone Sodium 1 gm/ Sodium Chloride 50 ml @ 100 mls/hr QHS IV Last administered on 03/30/17 20:26; Start 03/30/17 at 00:00 Info (Do NOT chart on this placeholder) 1 each 1X ONCE MC ; Start 03/30/17 at 01:00; Stop 03/30/17 at 01:01; Status UNV Pneumococcal Polyvalent Vaccine (Do NOT chart on this placeholder) 1 each PRN DAILY PRN MC VERIFICATION NEEDED; Start 03/30/17 at 01:00; Status Cancel Influenza Virus Vaccine Quadrival (Fluarix Quad [id number] Syringe) 0.5 ml ONCE ONCE VAX IM ; Start 03/30/17 at 09:00; Stop 03/30/17 at 09:01; Status Cancel Bisacodyl (Dulcolax Tab) 10 mg PRN DAILY PRN PO CONSTIPATION; Start 03/30/17 at 07:15 Ferrous Sulfate (Feosol) 325 mg DAILYWBKFT PO Last administered on 03/31/17 09:44; Start 03/30/17 at 08:00 Haloperidol (Haldol) 5 mg DAILY PO Last administered on 03/31/17 10:09; Start 03/30/17 at 09:00 Levothyroxine Sodium (Synthroid) 100 mcg DAILY07 PO Last administered on 05:45; Start 03/30/17 at 07:30 Lidocaine (Lidoderm) 3 patch PRN DAILY PRN TD TOPICAL PAIN Last administered on 03/30/17 10:17; Start 03/30/17 at 07:15 Lisinopril (Prinivil) 20 mg DAILY PO ; Start 03/30/17 at 09:00; Stop 03/30/17 at 10:16; Status DC Oxybutynin Chloride (Ditropan) 5 mg DAILY PO Last administered on 03/31/17 09 :49; Start 03/30/17 at 09:00 Non-Formulary Medication 1 puff PRN Q6HRS PRN INH SHORTNESS OF BREATH; Start 03/30/17 at 07:15; Stop 03/30/17 at 07:43; Status DC Vitamin D (Vitamin D3) 500 unit DAILY PO Last administered on 03/31/17 09:44 ; Start 03/30/17 at 09:00 Oxycodone HCl (Roxicodone) 2.5 mg PRN Q6HRS PRN PO PAIN Last administered on 05:45; Start 03/30/17 at 07:45 Ropinirole HCl (Requip) 0.5 mg BID PO Last administered on 03/31/17 09:46; Start 03/30/17 at 09:00 Metoprolol Tartrate (Lopressor) 12.5 mg BID PO ; Start 03/30/17 at 09:00; Stop 03/30/17 at 11:21; Status DC Pantoprazole Sodium (Protonix) 40 mg DAILYAC PO Last administered on 05:45; Start 03/30/17 at 07:30 Vitamin E 200 unit DAILY PO Last administered on 03/31/17 09:46; Start 03/30 at 09:00 Acetaminophen (Tylenol) 650 mg PRN Q6HRS PRN PO PAIN; Start 03/30/17 at 07:45 ; Stop 03/30/17 at 07:45; Status DC Acetaminophen (Tylenol) 325 mg PRN Q6HRS PRN PO PAIN Last administered on 03/30 16:01; Start 03/30/17 at 07:45 Albuterol Sulfate (Ventolin Neb Soln) 2.5 mg PRN Q6HRS PRN NEB SHORTNESS OF BREATH; Start 03/30/17 at 07:45 Nystatin (Nystop) 1 eusebio BID TP Last administered on 03/31/17 09:48; Start at 09:00 Pneumococcal Polyvalent Vaccine (Pneumovax 23) 0.5 ml ONCE ONCE VAX IM ; Start 03/30/17 at 09:30; Stop 03/30/17 at 09:31; Status DC Enoxaparin Sodium (Lovenox 40mg Syringe) 40 mg Q24H SQ Last administered on 10:07; Start 03/30/17 at 09:00; Stop 03/30/17 at 11:06; Status DC Insulin Aspart (NovoLOG) 0-12 UNITS QIDACHS SQ Last administered on 03/30/17 20:25; Start 03/30/17 at 11:30 Albuterol/ Ipratropium (Duoneb) 3 ml RTQID NEB Last administered on 03/31/17 11:19; Start 03/30/17 at 09:15 Guaifenesin (Mucinex) 600 mg BID PO Last administered on 03/31/17 09:45; Start 03/30/17 at 09:30 Sodium Chloride 1,000 ml @ 100 mls/hr 1X ONCE IV Last administered on 10:15; Start 03/30/17 at 10:15; Stop 03/30/17 at 20:14; Status DC Enoxaparin Sodium (Lovenox 60mg Syringe) 60 mg Q12HR SQ Last administered on 09:48; Start 03/30/17 at 21:00 Furosemide (Lasix) 40 mg Q8HRS IVP Last administered on 03/31/17 13:36; Start 03/30/17 at 12:00 Oxycodone HCl (Roxicodone) 5 mg PRN Q6HRS PRN PO PAIN Last administered on 11:38; Start 03/31/17 at 11:30 Docusate Sodium (Colace) 100 mg BID PO Last administered on 03/31/17 13:35; Start 03/31/17 at 12:00 Non-Formulary Medication 1.5 ea DAILY SQ ; Start 04/01/17 at 09:00 Active Scripts Active Citroma (Magnesium Citrate) 296 Ml Solution 296 Ml PO PRN 1X PRN 10 Days Synthroid (Levothyroxine Sodium) 100 Mcg Tablet 100 Mcg PO DAILY07 30 Days Lidocaine 1 Each Adh..patch 3 Patch TD PRN DAILY PRN 30 Days Nystatin 15 Gm Cream..g. 1 Eusebio TP BID 14 Days Flomax (Tamsulosin Hcl) 0.4 Mg Cap.er.24h 0.4 Mg PO QHS 30 Days Hydrocodone-Apap 5-325 (Hydrocodone Bit/Acetaminophen) 1 Each Tablet 1 Tab PO PRN Q4HRS PRN 30 Days Bisacodyl 5 Mg Tablet.dr 10 Mg PO PRN DAILY PRN 30 Days Feosol (Ferrous Sulfate) 325 Mg Tablet 325 Mg PO DAILYWBKFT 30 Days [Metoprolol Tartrate] 25 MG Tablet 12.5 Mg PO BID Reported Oxycodon-Acetaminophen 2.5-325 (Oxycodone Hcl/Acetaminophen) 1 Each Tablet 1 Each PO PRN Q6HRS PRN Proair Hfa Inhaler (Albuterol Sulfate) 8.5 Gm Hfa.aer.ad 1 Puff INH PRN Q6HRS PRN Actos (Pioglitazone Hcl) 15 Mg Tablet 15 Mg PO DAILY Trulicity (Dulaglutide) 0.75 Mg/0.5 Ml Pen.injctr 0.75 Mg SQ Requip (Ropinirole Hcl) 0.5 Mg Tablet 0.5 Mg PO BID Vitamin D3 (Cholecalciferol (Vitamin D3)) 400 Unit Tablet 400 Unit PO DAILY Brovana (Arformoterol Tartrate) 15 Mcg/2 Ml Vial.neb 15 Mcg IH Flovent 220MCG Hfa (Fluticasone Propionate) 12 Gm Aer.w.adap 12 Gm IH Vitamin E 1,000 Unit Capsule 1,000 Unit PO Haloperidol 5 Mg Tablet 5 Mg PO Lipitor (Atorvastatin Calcium) 80 Mg Tablet 80 Mg PO Valacyclovir (Valacyclovir Hcl) 1,000 Mg Tablet 1,000 Mg PO Oxybutynin Chloride 5 Mg Tablet 5 Mg PO Lisinopril 10 Mg Tablet 20 Mg PO Meloxicam 15 Mg Tablet 15 Mg PO Prilosec (Omeprazole) 10 Mg Capsule.dr 20 Mg PO Vitals/I & O Vital Sign - Last 24 Hours 03/30/17 03/30/17 03/30/17 03/30/17 16:00 16:05 16:15 17:06 Pulse Ox 98 98 96 98 O2 Delivery Nasal Cannula Nasal Cannula Nasal Cannula Nasal Cannula O2 Flow Rate 3.0 3.0 2.0 3.0 03/30/17 03/30/17 03/30/17 03/30/17 17:06 19:22 19:50 20:25 Temp 97.6 97.6 Pulse 78 Resp 18 B/P (MAP) 92/41 (58) Pulse Ox 98 90 96 O2 Delivery Nasal Cannula Nasal Cannula Nasal Cannula Nasal Cannula O2 Flow Rate 3.0 3.0 3.0 2.0 03/30/17 03/30/17 03/30/17 03/30/17 21:49 22:08 23:10 23:10 Temp 97.9 97.8 97.8 97.8 97.9 97.8 97.8 97.8 Pulse 78 73 75 75 Resp 26 22 18 B/P (MAP) 91/41 101/40 106/50 106/50 (68) 03/31/17 03/31/17 03/31/17 03/31/17 00:10 01:00 03:27 07:34 Temp 98.4 98.4 97.9 98.4 98.4 97.9 Pulse 73 67 72 Resp 22 20 18 B/P (MAP) 123/37 86/40 100/41 (60) Pulse Ox 96 97 O2 Delivery Nasal Cannula Nasal Cannula O2 Flow Rate 3.0 2.0 03/31/17 03/31/17 03/31/17 03/31/17 07:42 07:51 08:36 11:19 Temp 98.1 98.1 Pulse 79 Resp 20 B/P (MAP) 100/29 (52) Pulse Ox 96 97 O2 Delivery Nasal Cannula Nasal Cannula Nasal Cannula Nasal Cannula O2 Flow Rate 3.0 3.0 3.0 2.0 03/31/17 03/31/17 03/31/17 11:36 11:38 12:38 Temp 97.9 97.9 Pulse 85 Resp 20 20 18 B/P (MAP) 100/35 (56) Pulse Ox 94 97 97 O2 Delivery Nasal Cannula Nasal Cannula Nasal Cannula O2 Flow Rate 3.0 2.0 2.0 Intake and Output 03/31/17 03/31/17 04/01/17 15:00 23:00 07:00 Intake Total 850 ml Output Total 925 ml Balance -75 ml ILDA SAUNDERS MD Mar 31, 2017 15:22
[2017-03-31] MEDS: LIDOCAINE (700MG/PATCH) PATCH. TD PRN (18:33)
[2017-03-31 19:28] LABS: NEG OBC FOB NEG; POS OBC FOB POS
[2017-04-01] MEDS: oxyCODONE IR 5 MG TABLET PO PRN ×6 (02:43→21:58)
[2017-04-01 03:10] VITALS: BP 107/33
[2017-04-01 05:51] LABS: CALCIUM 8.5 mg/dL (8.5-10.1); CREATININE 1.3 mg/dL (0.6-1.0); POTASSIUM 4.4 mmol/L (3.5-5.1)
[2017-04-01] MEDS: FUROSEMIDE 40 MG/4 ML VIAL. IVP SCH ×3 (05:54→22:05)
[2017-04-01] MEDS: LEVOTHYROXINE 100 MCG TABLET PO SCH (05:55)
[2017-04-01 07:30] VITALS: BP 92/40
[2017-04-01] MEDS: INSULIN ASPART 300 UNITS/3 ML INSULN.PEN SQ SCH ×4 (07:30→22:53)
[2017-04-01] MEDS: IPRATRPIUM/ALBUTEROL 0.5/2.5MG 3 ML NEBU. NEB SCH ×4 (07:56→19:33)
[2017-04-01] MEDS: DOCUSATE SODIUM 100 MG CAPSULE. PO SCH ×2 (09:00→21:57)
[2017-04-01] MEDS ORDERED: TRULICITY 1.5 MG/0.5 ML SQ SCH (09:00)
[2017-04-01] MEDS: VITAMIN E 200 UNIT CAPSULE. PO SCH (09:00)
[2017-04-01] MEDS: FERROUS SULFATE 325 MG TABLET. PO SCH (09:01)
[2017-04-01] MEDS: rOPINIRole 0.25 MG TABLET. PO SCH ×2 (09:01→21:57)
[2017-04-01] MEDS: CHOLECALCIFEROL (VITAMIN D3) 1,000 UNIT TABLET PO SCH (09:01)
[2017-04-01] MEDS: HALOPERIDOL 5 MG TABLET. PO SCH (09:01)
[2017-04-01] MEDS: OXYBUTYNIN CHLORIDE 5 MG TABLET PO SCH (09:01)
[2017-04-01] MEDS: PANTOPRAZOLE 40 MG TABLET.DR. PO SCH (09:02)
[2017-04-01] MEDS: NYSTATIN TOPICAL POWDER 15GM BOTTLE. TP SCH ×2 (09:02→22:46)
[2017-04-01 10:34] VITALS: BP 101/35
--- NOTE | 2017-04-01 11:13 | PDOC ---
PROGRESS NOTES Subjective Subjective Patient reports back pain persists, some better with increase in Oxycodone yesterday. Denies SOA. Objective Objective Vital Signs Date Time Temp Pulse Resp B/P (MAP) Pulse Ox O2 Delivery O2 Flow Rate FiO2 04/01/17 09:03 20 Nasal Cannula 2.0 04/01/17 07:56 98 04/01/17 07:30 98.1 78 92/40 (57) 98.1 Physical Exam Abdomen: Normal bowel sounds, Soft, No tenderness Heart: Regular rate Extremities: Other (3+ pitting edema bilateral LE's) General: Alert, Oriented X3, No acute distress Lungs: Other (BS decreased throughout but otherwise CTA.) Assessment Assessment Problems Medical Problems: (1) Congestive heart failure Status: Acute (2) COPD (chronic obstructive pulmonary disease) Status: Acute (3) Hyponatremia Status: Acute (4) Moderate protein malnutrition Status: Acute (5) Morbid obesity Status: Acute (6) Urinary tract infection Status: Acute Plan Plan of Care 1. Acute on chronic respiratory failure with COPD - improving, continue present tx. 2. acute exacerbation of diastolic CHF - some diuresis with TID Lasix, continue. 3. CKD III with hyponatremia - renal function appears at baseline and sodium slowly improving, continue tx as per Renal. 4. UTI - E Coli which is resistant to several abx. Now on Vantin per pharmacy substitution for Rocephin, continue. 5. DM2 - controlled, continue ADA diet and SS insulin. 6. hypothyroidism - continue present dose which was increased during her hospitalization last month. 7. back pain - patient states still in too much pain to tolerate being in bed or having her legs elevated. Appears comfortable at rest in recliner. Continue present po meds. 8. schizophrenia - stable, continue home med. 9. morbid obesity with debility - patient unable to care for herself at home at this time. She is agreeable to fpc placement. SW consult on chart. Comment Review of Relevant I have reviewed the following items hitesh (where applicable) has been applied. Labs Laboratory Tests Test 03/30/17 16:43 03/30/17 20:14 03/31/17 03:00 03/31/17 03:30 Glucose (Fingerstick) 139 mg/dL (70-99) 160 mg/dL (70-99) Sodium Level 126 mmol/L (136-145) Potassium Level 4.6 mmol/L (3.5-5.1) Chloride Level 92 mmol/L (98-107) Carbon Dioxide Level 27 mmol/L (21-32) Anion Gap 7 (6-14) Blood Urea Nitrogen 23 mg/dL (7-20) Creatinine 1.3 mg/dL (0.6-1.0) Estimated GFR (Cockcroft-Gault) 41.0 BUN/Creatinine Ratio 18 (6-20) Glucose Level 124 mg/dL (70-99) Calcium Level 8.6 mg/dL (8.5-10.1) Magnesium Level 1.5 mg/dL (1.8-2.4) Total Bilirubin 0.3 mg/dL (0.2-1.0) Aspartate Amino Transf (AST/SGOT) 15 U/L (15-37) Alanine Aminotransferase (ALT/SGPT) 19 U/L (14-59) Alkaline Phosphatase 116 U/L (46-116) Total Protein 6.1 g/dL (6.4-8.2) Albumin 2.6 g/dL (3.4-5.0) Albumin/Globulin Ratio 0.7 (1.0-1.7) White Blood Count 13.6 x10^3/uL (4.0-11.0) Red Blood Count 2.72 x10^6/uL (3.50-5.40) Hemoglobin 8.6 g/dL (12.0-15.5) Hematocrit 25.9 % (36.0-47.0) Mean Corpuscular Volume 95 fL (79-100) Mean Corpuscular Hemoglobin 32 pg (25-35) Mean Corpuscular Hemoglobin Concent 33 g/dL (31-37) Red Cell Distribution Width 15.3 % (11.5-14.5) Platelet Count 427 x10^3/uL (140-400) Neutrophils (%) (Auto) 72 % (31-73) Lymphocytes (%) (Auto) 13 % (24-48) Monocytes (%) (Auto) 12 % (0-9) Eosinophils (%) (Auto) 2 % (0-3) Basophils (%) (Auto) 1 % (0-3) Neutrophils # (Auto) 9.9 x10^3uL (1.8-7.7) Lymphocytes # (Auto) 1.8 x10^3/uL (1.0-4.8) Monocytes # (Auto) 1.6 x10^3/uL (0.0-1.1) Eosinophils # (Auto) 0.3 x10^3/uL (0.0-0.7) Basophils # (Auto) 0.1 x10^3/uL (0.0-0.2) Test 03/31/17 07:23 03/31/17 11:27 03/31/17 17:00 03/31/17 18:30 Glucose (Fingerstick) 127 mg/dL (70-99) 142 mg/dL (70-99) 153 mg/dL (70-99) Stool Occult Blood Negative (NEG) Test 03/31/17 20:45 04/01/17 03:33 04/01/17 07:37 Glucose (Fingerstick) 183 mg/dL (70-99) 90 mg/dL (70-99) Sodium Level 127 mmol/L (136-145) Potassium Level 4.4 mmol/L (3.5-5.1) Chloride Level 93 mmol/L (98-107) Carbon Dioxide Level 27 mmol/L (21-32) Anion Gap 7 (6-14) Blood Urea Nitrogen 24 mg/dL (7-20) Creatinine 1.3 mg/dL (0.6-1.0) Estimated GFR (Cockcroft-Gault) 41.0 Glucose Level 86 mg/dL (70-99) Calcium Level 8.5 mg/dL (8.5-10.1) Laboratory Tests Test 03/31/17 11:27 03/31/17 17:00 03/31/17 18:30 03/31/17 20:45 Glucose (Fingerstick) 142 mg/dL (70-99) 153 mg/dL (70-99) 183 mg/dL (70-99) Stool Occult Blood Negative (NEG) Test 04/01/17 03:33 04/01/17 07:37 Sodium Level 127 mmol/L (136-145) Potassium Level 4.4 mmol/L (3.5-5.1) Chloride Level 93 mmol/L (98-107) Carbon Dioxide Level 27 mmol/L (21-32) Anion Gap 7 (6-14) Blood Urea Nitrogen 24 mg/dL (7-20) Creatinine 1.3 mg/dL (0.6-1.0) Estimated GFR (Cockcroft-Gault) 41.0 Glucose Level 86 mg/dL (70-99) Calcium Level 8.5 mg/dL (8.5-10.1) Glucose (Fingerstick) 90 mg/dL (70-99) Microbiology 03/29/17 Urine Culture - Final, Complete 03/29/17 Urine Culture Result 1 (ADELAIDA) - Final, Complete 03/29/17 Antimicrobic Susceptibility - Final, Complete Medications Current Medications Fentanyl Citrate (Fentanyl 2ml Vial) 50 mcg PRN Q15MIN PRN IV PAIN GREATER THAN 3/10 Last administered on 03/30/17 00:01; Start 03/29/17 at 21:15; Stop 03/30/17 at 00:00; Status DC Ondansetron HCl (Zofran) 4 mg 1X ONCE IV Last administered on 03/29/17 21:23 ; Start 03/29/17 at 21:30; Stop 03/29/17 at 21:31; Status DC Furosemide (Lasix) 60 mg 1X ONCE IVP Last administered on 03/29/17 21:27; Start 03/29/17 at 21:30; Stop 03/29/17 at 21:31; Status DC Ondansetron HCl (Zofran) 4 mg PRN Q8HRS PRN IV NAUSEA/VOMITING; Start at 22:30; Stop 03/30/17 at 22:29; Status DC Fentanyl Citrate (Fentanyl 2ml Vial) 50 mcg PRN Q2HR PRN IV SEVERE PAIN Last administered on 03/30/17 20:16; Start 03/29/17 at 22:30; Stop 03/30/17 at 22 :29; Status DC Acetaminophen (Tylenol) 650 mg PRN Q4HRS PRN PO FEVER Last administered on 00:00; Start 03/29/17 at 22:30; Stop 03/30/17 at 22:29; Status DC Ceftriaxone Sodium 1 gm/ Sodium Chloride 50 ml @ 100 mls/hr QHS IV Last administered on 03/31/17 20:42; Start 03/30/17 at 00:00; Stop 04/01/17 at 08 :05; Status DC Info (Do NOT chart on this placeholder) 1 each 1X ONCE MC ; Start 03/30/17 at 01:00; Stop 03/30/17 at 01:01; Status UNV Pneumococcal Polyvalent Vaccine (Do NOT chart on this placeholder) 1 each PRN DAILY PRN MC VERIFICATION NEEDED; Start 03/30/17 at 01:00; Status Cancel Influenza Virus Vaccine Quadrival (Fluarix Quad 4430-6080 Syringe) 0.5 ml ONCE ONCE VAX IM ; Start 03/30/17 at 09:00; Stop 03/30/17 at 09:01; Status Cancel Bisacodyl (Dulcolax Tab) 10 mg PRN DAILY PRN PO CONSTIPATION; Start 03/30/17 at 07:15 Ferrous Sulfate (Feosol) 325 mg DAILYWBKFT PO Last administered on 04/01/17 09:01; Start 03/30/17 at 08:00 Haloperidol (Haldol) 5 mg DAILY PO Last administered on 04/01/17 09:01; Start 03/30/17 at 09:00 Levothyroxine Sodium (Synthroid) 100 mcg DAILY07 PO Last administered on 05:55; Start 03/30/17 at 07:30 Lidocaine (Lidoderm) 3 patch PRN DAILY PRN TD TOPICAL PAIN Last administered on 03/31/17 18:33; Start 03/30/17 at 07:15 Lisinopril (Prinivil) 20 mg DAILY PO ; Start 03/30/17 at 09:00; Stop 03/30/17 at 10:16; Status DC Oxybutynin Chloride (Ditropan) 5 mg DAILY PO Last administered on 04/01/17 09 :01; Start 03/30/17 at 09:00 Non-Formulary Medication 1 puff PRN Q6HRS PRN INH SHORTNESS OF BREATH; Start 03/30/17 at 07:15; Stop 03/30/17 at 07:43; Status DC Vitamin D (Vitamin D3) 500 unit DAILY PO Last administered on 04/01/17 09:01 ; Start 03/30/17 at 09:00 Oxycodone HCl (Roxicodone) 2.5 mg PRN Q6HRS PRN PO PAIN Last administered on 02:43; Start 03/30/17 at 07:45 Ropinirole HCl (Requip) 0.5 mg BID PO Last administered on 04/01/17 09:01; Start 03/30/17 at 09:00 Metoprolol Tartrate (Lopressor) 12.5 mg BID PO ; Start 03/30/17 at 09:00; Stop 03/30/17 at 11:21; Status DC Pantoprazole Sodium (Protonix) 40 mg DAILYAC PO Last administered on 09:02; Start 03/30/17 at 07:30 Vitamin E 200 unit DAILY PO Last administered on 04/01/17 09:00; Start 03/30 at 09:00 Acetaminophen (Tylenol) 650 mg PRN Q6HRS PRN PO PAIN; Start 03/30/17 at 07:45 ; Stop 03/30/17 at 07:45; Status DC Acetaminophen (Tylenol) 325 mg PRN Q6HRS PRN PO PAIN Last administered on 03/30 16:01; Start 03/30/17 at 07:45 Albuterol Sulfate (Ventolin Neb Soln) 2.5 mg PRN Q6HRS PRN NEB SHORTNESS OF BREATH; Start 03/30/17 at 07:45 Nystatin (Nystop) 1 eusebio BID TP Last administered on 04/01/17 09:02; Start at 09:00 Pneumococcal Polyvalent Vaccine (Pneumovax 23) 0.5 ml ONCE ONCE VAX IM ; Start 03/30/17 at 09:30; Stop 03/30/17 at 09:31; Status DC Enoxaparin Sodium (Lovenox 40mg Syringe) 40 mg Q24H SQ Last administered on 10:07; Start 03/30/17 at 09:00; Stop 03/30/17 at 11:06; Status DC Insulin Aspart (NovoLOG) 0-12 UNITS QIDACHS SQ Last administered on 03/31/17 22:36; Start 03/30/17 at 11:30 Albuterol/ Ipratropium (Duoneb) 3 ml RTQID NEB Last administered on 04/01/17 07:56; Start 03/30/17 at 09:15 Guaifenesin (Mucinex) 600 mg BID PO Last administered on 04/01/17 09:01; Start 03/30/17 at 09:30 Sodium Chloride 1,000 ml @ 100 mls/hr 1X ONCE IV Last administered on 10:15; Start 03/30/17 at 10:15; Stop 03/30/17 at 20:14; Status DC Enoxaparin Sodium (Lovenox 60mg Syringe) 60 mg Q12HR SQ Last administered on 09:02; Start 03/30/17 at 21:00 Furosemide (Lasix) 40 mg Q8HRS IVP Last administered on 04/01/17 05:54; Start 03/30/17 at 12:00 Oxycodone HCl (Roxicodone) 5 mg PRN Q6HRS PRN PO PAIN Last administered on 09:03; Start 03/31/17 at 11:30 Docusate Sodium (Colace) 100 mg BID PO Last administered on 03/31/17 20:42; Start 03/31/17 at 12:00 Non-Formulary Medication 1.5 ea DAILY SQ Last administered on 04/01/17 09:04 ; Start 04/01/17 at 09:00 Cefpodoxime Proxetil (Vantin) 100 mg BID PO ; Start 04/01/17 at 21:00 Active Scripts Active Citroma (Magnesium Citrate) 296 Ml Solution 296 Ml PO PRN 1X PRN 10 Days Synthroid (Levothyroxine Sodium) 100 Mcg Tablet 100 Mcg PO DAILY07 30 Days Lidocaine 1 Each Adh..patch 3 Patch TD PRN DAILY PRN 30 Days Nystatin 15 Gm Cream..g. 1 Eusebio TP BID 14 Days Flomax (Tamsulosin Hcl) 0.4 Mg Cap.er.24h 0.4 Mg PO QHS 30 Days Hydrocodone-Apap 5-325 (Hydrocodone Bit/Acetaminophen) 1 Each Tablet 1 Tab PO PRN Q4HRS PRN 30 Days Bisacodyl 5 Mg Tablet.dr 10 Mg PO PRN DAILY PRN 30 Days Feosol (Ferrous Sulfate) 325 Mg Tablet 325 Mg PO DAILYWBKFT 30 Days [Metoprolol Tartrate] 25 MG Tablet 12.5 Mg PO BID Reported Oxycodon-Acetaminophen 2.5-325 (Oxycodone Hcl/Acetaminophen) 1 Each Tablet 1 Each PO PRN Q6HRS PRN Proair Hfa Inhaler (Albuterol Sulfate) 8.5 Gm Hfa.aer.ad 1 Puff INH PRN Q6HRS PRN Actos (Pioglitazone Hcl) 15 Mg Tablet 15 Mg PO DAILY Trulicity (Dulaglutide) 0.75 Mg/0.5 Ml Pen.injctr 0.75 Mg SQ Requip (Ropinirole Hcl) 0.5 Mg Tablet 0.5 Mg PO BID Vitamin D3 (Cholecalciferol (Vitamin D3)) 400 Unit Tablet 400 Unit PO DAILY Brovana (Arformoterol Tartrate) 15 Mcg/2 Ml Vial.neb 15 Mcg IH Flovent 220MCG Hfa (Fluticasone Propionate) 12 Gm Aer.w.adap 12 Gm IH Vitamin E 1,000 Unit Capsule 1,000 Unit PO Haloperidol 5 Mg Tablet 5 Mg PO Lipitor (Atorvastatin Calcium) 80 Mg Tablet 80 Mg PO Valacyclovir (Valacyclovir Hcl) 1,000 Mg Tablet 1,000 Mg PO Oxybutynin Chloride 5 Mg Tablet 5 Mg PO Lisinopril 10 Mg Tablet 20 Mg PO Meloxicam 15 Mg Tablet 15 Mg PO Prilosec (Omeprazole) 10 Mg Capsule.dr 20 Mg PO Vitals/I & O Vital Sign - Last 24 Hours 03/31/17 03/31/17 03/31/17 03/31/17 11:19 11:36 11:38 12:38 Temp 97.9 97.9 Pulse 85 Resp 20 20 18 B/P (MAP) 100/35 (56) Pulse Ox 97 94 97 97 O2 Delivery Nasal Cannula Nasal Cannula Nasal Cannula O2 Flow Rate 2.0 3.0 2.0 03/31/17 03/31/17 03/31/17 03/31/17 15:00 16:47 18:00 19:55 Temp 98.1 97.7 98.1 97.7 Pulse 63 85 Resp 20 18 21 B/P (MAP) 97/33 (54) 113/41 (65) Pulse Ox 96 96 96 97 O2 Delivery Nasal Cannula Nasal Cannula Nasal Cannula Nasal Cannula O2 Flow Rate 3.0 2.0 2.0 2.5 03/31/17 03/31/17 03/31/17 03/31/17 20:00 20:31 20:56 23:33 Temp 98.0 98.0 Pulse 85 Resp 22 B/P (MAP) 96/34 (54) Pulse Ox 97 96 O2 Delivery Nasal Cannula Nasal Cannula Nasal Cannula Nasal Cannula O2 Flow Rate 3.0 3.0 2.0 3.0 03/31/17 04/01/17 04/01/17 04/01/17 23:58 00:58 02:43 03:10 Temp 97.8 97.8 Pulse 84 Resp 21 B/P (MAP) 107/33 (57) Pulse Ox 95 O2 Delivery Nasal Cannula Nasal Cannula Nasal Cannula Nasal Cannula O2 Flow Rate 3.0 3.0 3.0 3.0 04/01/17 04/01/17 04/01/17 04/01/17 03:43 05:55 07:30 07:56 Temp 98.1 98.1 Pulse 78 Resp 20 B/P (MAP) 92/40 (57) Pulse Ox 99 98 O2 Delivery Nasal Cannula Nasal Cannula Nasal Cannula Nasal Cannula O2 Flow Rate 3.0 3.0 3.0 3.0 04/01/17 09:03 Resp 20 O2 Delivery Nasal Cannula O2 Flow Rate 2.0 NORBERTO GARCIA MD Apr 01, 2017 11:13
--- NOTE | 2017-04-01 11:59 | PDOC ---
PROGRESS NOTES Subjective Subjective Patient seen and examined The patient looks and feels better today Objective Objective Vital Signs Date Time Temp Pulse Resp B/P (MAP) Pulse Ox O2 Delivery O2 Flow Rate FiO2 04/01/17 10:34 98.1 80 20 101/35 (57) 97 Nasal Cannula 3.0 98.1 Physical Exam Abdomen: Normal bowel sounds Heart: Regular rate General: mild distress Lungs: Other (slightly decreased breath sounds) Assessment Assessment Problems Medical Problems: (1) Congestive heart failure Status: Acute (2) COPD (chronic obstructive pulmonary disease) Status: Acute (3) Hyponatremia Status: Acute (4) Moderate protein malnutrition Status: Acute (5) Morbid obesity Status: Acute (6) Urinary tract infection 1. Dyspnea: more from COPD and anemia. BNP mildly elevated, no pulmonary vascular congestion. Improving on present treatments. 2. Acute on chronic diastolic CHF: right sided and mild/pulmonary induced. Recent TTE with normal EF and wall motion. Continue medical treatment. 3. Hypotension: Improved 4. Dependent Bilateral LE edema: Suspect venous insufficiency likely from venous compression from sitting all the time, unable to lay flat due to lower back, and morbid obesity 5. Anemia with underlying hx of myelodysplasia. 6. RADHA/Hyponatremia: monitoring 7. AECOPD/moderate pulmonary HTN: progressive increase in sputum and coughing. Improved today 8. Morbid obesity with likely undiagnosed GENIA 9. Possible UTI 10. S//P Lumbar hemilaminotomy and microdiscectomy: 03/14/2017 Comment Review of Relevant I have reviewed the following items hitesh (where applicable) has been applied. Labs Laboratory Tests Test 03/30/17 16:43 03/30/17 20:14 03/31/17 03:00 03/31/17 03:30 Glucose (Fingerstick) 139 mg/dL (70-99) 160 mg/dL (70-99) Sodium Level 126 mmol/L (136-145) Potassium Level 4.6 mmol/L (3.5-5.1) Chloride Level 92 mmol/L (98-107) Carbon Dioxide Level 27 mmol/L (21-32) Anion Gap 7 (6-14) Blood Urea Nitrogen 23 mg/dL (7-20) Creatinine 1.3 mg/dL (0.6-1.0) Estimated GFR (Cockcroft-Gault) 41.0 BUN/Creatinine Ratio 18 (6-20) Glucose Level 124 mg/dL (70-99) Calcium Level 8.6 mg/dL (8.5-10.1) Magnesium Level 1.5 mg/dL (1.8-2.4) Total Bilirubin 0.3 mg/dL (0.2-1.0) Aspartate Amino Transf (AST/SGOT) 15 U/L (15-37) Alanine Aminotransferase (ALT/SGPT) 19 U/L (14-59) Alkaline Phosphatase 116 U/L (46-116) Total Protein 6.1 g/dL (6.4-8.2) Albumin 2.6 g/dL (3.4-5.0) Albumin/Globulin Ratio 0.7 (1.0-1.7) White Blood Count 13.6 x10^3/uL (4.0-11.0) Red Blood Count 2.72 x10^6/uL (3.50-5.40) Hemoglobin 8.6 g/dL (12.0-15.5) Hematocrit 25.9 % (36.0-47.0) Mean Corpuscular Volume 95 fL (79-100) Mean Corpuscular Hemoglobin 32 pg (25-35) Mean Corpuscular Hemoglobin Concent 33 g/dL (31-37) Red Cell Distribution Width 15.3 % (11.5-14.5) Platelet Count 427 x10^3/uL (140-400) Neutrophils (%) (Auto) 72 % (31-73) Lymphocytes (%) (Auto) 13 % (24-48) Monocytes (%) (Auto) 12 % (0-9) Eosinophils (%) (Auto) 2 % (0-3) Basophils (%) (Auto) 1 % (0-3) Neutrophils # (Auto) 9.9 x10^3uL (1.8-7.7) Lymphocytes # (Auto) 1.8 x10^3/uL (1.0-4.8) Monocytes # (Auto) 1.6 x10^3/uL (0.0-1.1) Eosinophils # (Auto) 0.3 x10^3/uL (0.0-0.7) Basophils # (Auto) 0.1 x10^3/uL (0.0-0.2) Test 03/31/17 07:23 03/31/17 11:27 03/31/17 17:00 03/31/17 18:30 Glucose (Fingerstick) 127 mg/dL (70-99) 142 mg/dL (70-99) 153 mg/dL (70-99) Stool Occult Blood Negative (NEG) Test 03/31/17 20:45 04/01/17 03:33 04/01/17 07:37 Glucose (Fingerstick) 183 mg/dL (70-99) 90 mg/dL (70-99) Sodium Level 127 mmol/L (136-145) Potassium Level 4.4 mmol/L (3.5-5.1) Chloride Level 93 mmol/L (98-107) Carbon Dioxide Level 27 mmol/L (21-32) Anion Gap 7 (6-14) Blood Urea Nitrogen 24 mg/dL (7-20) Creatinine 1.3 mg/dL (0.6-1.0) Estimated GFR (Cockcroft-Gault) 41.0 Glucose Level 86 mg/dL (70-99) Calcium Level 8.5 mg/dL (8.5-10.1) Laboratory Tests Test 03/31/17 17:00 03/31/17 18:30 03/31/17 20:45 04/01/17 03:33 Glucose (Fingerstick) 153 mg/dL (70-99) 183 mg/dL (70-99) Stool Occult Blood Negative (NEG) Sodium Level 127 mmol/L (136-145) Potassium Level 4.4 mmol/L (3.5-5.1) Chloride Level 93 mmol/L (98-107) Carbon Dioxide Level 27 mmol/L (21-32) Anion Gap 7 (6-14) Blood Urea Nitrogen 24 mg/dL (7-20) Creatinine 1.3 mg/dL (0.6-1.0) Estimated GFR (Cockcroft-Gault) 41.0 Glucose Level 86 mg/dL (70-99) Calcium Level 8.5 mg/dL (8.5-10.1) Test 04/01/17 07:37 Glucose (Fingerstick) 90 mg/dL (70-99) Microbiology 03/29/17 Urine Culture - Final, Complete 03/29/17 Urine Culture Result 1 (ADELAIDA) - Final, Complete 03/29/17 Antimicrobic Susceptibility - Final, Complete Medications Current Medications Fentanyl Citrate (Fentanyl 2ml Vial) 50 mcg PRN Q15MIN PRN IV PAIN GREATER THAN 3/10 Last administered on 03/30/17 00:01; Start 03/29/17 at 21:15; Stop 03/30/17 at 00:00; Status DC Ondansetron HCl (Zofran) 4 mg 1X ONCE IV Last administered on 03/29/17 21:23 ; Start 03/29/17 at 21:30; Stop 03/29/17 at 21:31; Status DC Furosemide (Lasix) 60 mg 1X ONCE IVP Last administered on 03/29/17 21:27; Start 03/29/17 at 21:30; Stop 03/29/17 at 21:31; Status DC Ondansetron HCl (Zofran) 4 mg PRN Q8HRS PRN IV NAUSEA/VOMITING; Start at 22:30; Stop 03/30/17 at 22:29; Status DC Fentanyl Citrate (Fentanyl 2ml Vial) 50 mcg PRN Q2HR PRN IV SEVERE PAIN Last administered on 03/30/17 20:16; Start 03/29/17 at 22:30; Stop 03/30/17 at 22 :29; Status DC Acetaminophen (Tylenol) 650 mg PRN Q4HRS PRN PO FEVER Last administered on 00:00; Start 03/29/17 at 22:30; Stop 03/30/17 at 22:29; Status DC Ceftriaxone Sodium 1 gm/ Sodium Chloride 50 ml @ 100 mls/hr QHS IV Last administered on 03/31/17 20:42; Start 03/30/17 at 00:00; Stop 04/01/17 at 08 :05; Status DC Info (Do NOT chart on this placeholder) 1 each 1X ONCE MC ; Start 03/30/17 at 01:00; Stop 03/30/17 at 01:01; Status UNV Pneumococcal Polyvalent Vaccine (Do NOT chart on this placeholder) 1 each PRN DAILY PRN MC VERIFICATION NEEDED; Start 03/30/17 at 01:00; Status Cancel Influenza Virus Vaccine Quadrival (Fluarix Quad [id number] Syringe) 0.5 ml ONCE ONCE VAX IM ; Start 03/30/17 at 09:00; Stop 03/30/17 at 09:01; Status Cancel Bisacodyl (Dulcolax Tab) 10 mg PRN DAILY PRN PO CONSTIPATION; Start 03/30/17 at 07:15 Ferrous Sulfate (Feosol) 325 mg DAILYWBKFT PO Last administered on 04/01/17 09:01; Start 03/30/17 at 08:00 Haloperidol (Haldol) 5 mg DAILY PO Last administered on 04/01/17 09:01; Start 03/30/17 at 09:00 Levothyroxine Sodium (Synthroid) 100 mcg DAILY07 PO Last administered on 05:55; Start 03/30/17 at 07:30 Lidocaine (Lidoderm) 3 patch PRN DAILY PRN TD TOPICAL PAIN Last administered on 03/31/17 18:33; Start 03/30/17 at 07:15 Lisinopril (Prinivil) 20 mg DAILY PO ; Start 03/30/17 at 09:00; Stop 03/30/17 at 10:16; Status DC Oxybutynin Chloride (Ditropan) 5 mg DAILY PO Last administered on 04/01/17 09 :01; Start 03/30/17 at 09:00 Non-Formulary Medication 1 puff PRN Q6HRS PRN INH SHORTNESS OF BREATH; Start 03/30/17 at 07:15; Stop 03/30/17 at 07:43; Status DC Vitamin D (Vitamin D3) 500 unit DAILY PO Last administered on 04/01/17 09:01 ; Start 03/30/17 at 09:00 Oxycodone HCl (Roxicodone) 2.5 mg PRN Q6HRS PRN PO PAIN Last administered on 02:43; Start 03/30/17 at 07:45 Ropinirole HCl (Requip) 0.5 mg BID PO Last administered on 04/01/17 09:01; Start 03/30/17 at 09:00 Metoprolol Tartrate (Lopressor) 12.5 mg BID PO ; Start 03/30/17 at 09:00; Stop 03/30/17 at 11:21; Status DC Pantoprazole Sodium (Protonix) 40 mg DAILYAC PO Last administered on 09:02; Start 03/30/17 at 07:30 Vitamin E 200 unit DAILY PO Last administered on 04/01/17 09:00; Start 03/30 at 09:00 Acetaminophen (Tylenol) 650 mg PRN Q6HRS PRN PO PAIN; Start 03/30/17 at 07:45 ; Stop 03/30/17 at 07:45; Status DC Acetaminophen (Tylenol) 325 mg PRN Q6HRS PRN PO PAIN Last administered on 03/30 16:01; Start 03/30/17 at 07:45 Albuterol Sulfate (Ventolin Neb Soln) 2.5 mg PRN Q6HRS PRN NEB SHORTNESS OF BREATH; Start 03/30/17 at 07:45 Nystatin (Nystop) 1 eusebio BID TP Last administered on 04/01/17 09:02; Start at 09:00 Pneumococcal Polyvalent Vaccine (Pneumovax 23) 0.5 ml ONCE ONCE VAX IM ; Start 03/30/17 at 09:30; Stop 03/30/17 at 09:31; Status DC Enoxaparin Sodium (Lovenox 40mg Syringe) 40 mg Q24H SQ Last administered on 10:07; Start 03/30/17 at 09:00; Stop 03/30/17 at 11:06; Status DC Insulin Aspart (NovoLOG) 0-12 UNITS QIDACHS SQ Last administered on 03/31/17 22:36; Start 03/30/17 at 11:30 Albuterol/ Ipratropium (Duoneb) 3 ml RTQID NEB Last administered on 04/01/17 07:56; Start 03/30/17 at 09:15 Guaifenesin (Mucinex) 600 mg BID PO Last administered on 04/01/17 09:01; Start 03/30/17 at 09:30 Sodium Chloride 1,000 ml @ 100 mls/hr 1X ONCE IV Last administered on 10:15; Start 03/30/17 at 10:15; Stop 03/30/17 at 20:14; Status DC Enoxaparin Sodium (Lovenox 60mg Syringe) 60 mg Q12HR SQ Last administered on 09:02; Start 03/30/17 at 21:00 Furosemide (Lasix) 40 mg Q8HRS IVP Last administered on 04/01/17 05:54; Start 03/30/17 at 12:00 Oxycodone HCl (Roxicodone) 5 mg PRN Q6HRS PRN PO PAIN Last administered on 09:03; Start 03/31/17 at 11:30 Docusate Sodium (Colace) 100 mg BID PO Last administered on 03/31/17 20:42; Start 03/31/17 at 12:00 Non-Formulary Medication 1.5 ea DAILY SQ Last administered on 04/01/17 09:04 ; Start 04/01/17 at 09:00 Cefpodoxime Proxetil (Vantin) 100 mg BID PO ; Start 04/01/17 at 21:00 Active Scripts Active Citroma (Magnesium Citrate) 296 Ml Solution 296 Ml PO PRN 1X PRN 10 Days Synthroid (Levothyroxine Sodium) 100 Mcg Tablet 100 Mcg PO DAILY07 30 Days Lidocaine 1 Each Adh..patch 3 Patch TD PRN DAILY PRN 30 Days Nystatin 15 Gm Cream..g. 1 Eusebio TP BID 14 Days Flomax (Tamsulosin Hcl) 0.4 Mg Cap.er.24h 0.4 Mg PO QHS 30 Days Hydrocodone-Apap 5-325 (Hydrocodone Bit/Acetaminophen) 1 Each Tablet 1 Tab PO PRN Q4HRS PRN 30 Days Bisacodyl 5 Mg Tablet.dr 10 Mg PO PRN DAILY PRN 30 Days Feosol (Ferrous Sulfate) 325 Mg Tablet 325 Mg PO DAILYWBKFT 30 Days [Metoprolol Tartrate] 25 MG Tablet 12.5 Mg PO BID Reported Oxycodon-Acetaminophen 2.5-325 (Oxycodone Hcl/Acetaminophen) 1 Each Tablet 1 Each PO PRN Q6HRS PRN Proair Hfa Inhaler (Albuterol Sulfate) 8.5 Gm Hfa.aer.ad 1 Puff INH PRN Q6HRS PRN Actos (Pioglitazone Hcl) 15 Mg Tablet 15 Mg PO DAILY Trulicity (Dulaglutide) 0.75 Mg/0.5 Ml Pen.injctr 0.75 Mg SQ Requip (Ropinirole Hcl) 0.5 Mg Tablet 0.5 Mg PO BID Vitamin D3 (Cholecalciferol (Vitamin D3)) 400 Unit Tablet 400 Unit PO DAILY Brovana (Arformoterol Tartrate) 15 Mcg/2 Ml Vial.neb 15 Mcg IH Flovent 220MCG Hfa (Fluticasone Propionate) 12 Gm Aer.w.adap 12 Gm IH Vitamin E 1,000 Unit Capsule 1,000 Unit PO Haloperidol 5 Mg Tablet 5 Mg PO Lipitor (Atorvastatin Calcium) 80 Mg Tablet 80 Mg PO Valacyclovir (Valacyclovir Hcl) 1,000 Mg Tablet 1,000 Mg PO Oxybutynin Chloride 5 Mg Tablet 5 Mg PO Lisinopril 10 Mg Tablet 20 Mg PO Meloxicam 15 Mg Tablet 15 Mg PO Prilosec (Omeprazole) 10 Mg Capsule.dr 20 Mg PO Vitals/I & O Vital Sign - Last 24 Hours 03/31/17 03/31/17 03/31/17 03/31/17 12:38 15:00 16:47 18:00 Temp 98.1 98.1 Pulse 63 Resp 20 18 B/P (MAP) 97/33 (54) Pulse Ox 97 96 96 96 O2 Delivery Nasal Cannula Nasal Cannula Nasal Cannula O2 Flow Rate 3.0 2.0 2.0 03/31/17 03/31/17 03/31/17 03/31/17 19:55 20:00 20:31 20:56 Temp 97.7 97.7 Pulse 85 Resp 21 B/P (MAP) 113/41 (65) Pulse Ox 97 97 O2 Delivery Nasal Cannula Nasal Cannula Nasal Cannula Nasal Cannula O2 Flow Rate 2.5 3.0 3.0 2.0 03/31/17 03/31/17 04/01/17 04/01/17 23:33 23:58 02:43 03:10 Temp 98.0 97.8 98.0 97.8 Pulse 85 84 Resp 22 21 B/P (MAP) 96/34 (54) 107/33 (57) Pulse Ox 96 95 O2 Delivery Nasal Cannula Nasal Cannula Nasal Cannula Nasal Cannula O2 Flow Rate 3.0 3.0 3.0 3.0 04/01/17 04/01/17 04/01/17 04/01/17 03:43 05:55 07:30 07:56 Temp 98.1 98.1 Pulse 78 Resp 20 B/P (MAP) 92/40 (57) Pulse Ox 99 98 O2 Delivery Nasal Cannula Nasal Cannula Nasal Cannula Nasal Cannula O2 Flow Rate 3.0 3.0 3.0 3.0 04/01/17 04/01/17 04/01/17 04/01/17 08:00 09:03 10:03 10:34 Temp 98.1 98.1 Pulse 80 Resp 20 18 20 B/P (MAP) 101/35 (57) Pulse Ox 97 O2 Delivery Nasal Cannula Nasal Cannula Nasal Cannula Nasal Cannula O2 Flow Rate 3.0 2.0 2.0 3.0 GAGE STRICKLAND MD Apr 01, 2017 11:59
[2017-04-01 14:41] VITALS: BP 113/44
[2017-04-01] MEDS: ACETAMINOPHEN 325 MG TABLET. PO PRN (16:01)
[2017-04-01 19:30] VITALS: BP 91/29
[2017-04-01] MEDS: CEFPODOXIME PROXETIL 100 MG TABLET. PO SCH (21:57)
[2017-04-01 23:00] VITALS: BP 114/39
[2017-04-02] MEDS: oxyCODONE IR 5 MG TABLET PO PRN ×3 (00:35→08:10)
[2017-04-02 03:25] VITALS: BP 109/42
[2017-04-02] MEDS: ACETAMINOPHEN 325 MG TABLET. PO PRN (04:27)
[2017-04-02 05:09] LABS: CALCIUM 9.1 mg/dL (8.5-10.1); CREATININE 1.1 mg/dL (0.6-1.0); GFR 49.7; POTASSIUM 4.2 mmol/L (3.5-5.1)
[2017-04-02] MEDS: FUROSEMIDE 40 MG/4 ML VIAL. IVP SCH (06:26)
[2017-04-02] MEDS: LEVOTHYROXINE 100 MCG TABLET PO SCH (06:26)
[2017-04-02 07:00] VITALS: BP 97/53
[2017-04-02] MEDS: IPRATRPIUM/ALBUTEROL 0.5/2.5MG 3 ML NEBU. NEB SCH ×4 (07:50→19:44)
[2017-04-02] MEDS: INSULIN ASPART 300 UNITS/3 ML INSULN.PEN SQ SCH ×4 (07:53→21:31)
[2017-04-02] MEDS: VITAMIN E 200 UNIT CAPSULE. PO SCH (08:08)
[2017-04-02] MEDS: CEFPODOXIME PROXETIL 100 MG TABLET. PO SCH ×2 (08:08→21:29)
[2017-04-02] MEDS: PANTOPRAZOLE 40 MG TABLET.DR. PO SCH (08:08)
[2017-04-02] MEDS: OXYBUTYNIN CHLORIDE 5 MG TABLET PO SCH (08:08)
[2017-04-02] MEDS: FERROUS SULFATE 325 MG TABLET. PO SCH (08:08)
[2017-04-02] MEDS: rOPINIRole 0.25 MG TABLET. PO SCH ×2 (08:10→21:29)
[2017-04-02] MEDS: NYSTATIN TOPICAL POWDER 15GM BOTTLE. TP SCH ×2 (08:11→21:30)
[2017-04-02] MEDS: CHOLECALCIFEROL (VITAMIN D3) 1,000 UNIT TABLET PO SCH (08:11)
[2017-04-02] MEDS: HALOPERIDOL 5 MG TABLET. PO SCH (08:11)
[2017-04-02] MEDS: DOCUSATE SODIUM 100 MG CAPSULE. PO SCH ×2 (08:12→21:29)
--- NOTE | 2017-04-02 10:54 | PDOC ---
SUBJECTIVE ROS CKD III and HypoNatremia doing better CVS: no Orthopnea, no CP RESP: no SOB, ? AMBROCIO - not ambulated GI: no Nausea, no Vomiting : no Dysuria, no Urgency - sawyer in palce OBJECTIVE Vital Signs Vital Signs Date Time Temp Pulse Resp B/P (MAP) Pulse Ox O2 Delivery O2 Flow Rate FiO2 04/02/17 08:10 Nasal Cannula 2.0 04/02/17 07:50 97 04/02/17 07:00 97.9 96 22 97/53 (68) 97.9 I & 0 Intake and Output 04/03/17 07:00 Intake Total 240 ml Balance 240 ml Intake Oral 240 ml PHYSICAL EXAM Physical Exam GEN: Awake, Oriented x 2-3 when awake, In no distress EYES: Vision Unchanged, Conjunctiva Normal EN: No EN Drainage, Mucous Membranes moist NECK: no JVD, no JVP, Supple, no Thyromegaly - short thick neck CVS: S1S2, ? Murmur, No Gallop, No Rub,+2-3 Edema - distal HS RESP: no Rales, no Rhonchi,no Acc. Muscle Use - distal BS GI: BS + ve, NO Bruit, Non Tender, Non Distended - morbidly obese : no CVA tenderness, no Suprapubic Tenderness DIAGNOSIS/ASSESSMENT Assessment & Plan Miquel - VMN asso with NSAID use: Creat is imrpving Current fluid and E-lyte status does not necessitate emergent need for dialysis. Will re-evaluate for dialysis in the am HypoNatremia - multifactorial - improving with current mx so no chagnes made ANEMIA; Presumably Post -op - check [place] HTN: Current BP meds as reviewed. See orders for changes. Edema - multifactorial - diuresis as ongoing - agree with Dr Hurst re GENIA and ^^ PASWP (if measured) Discussed Plan of Care with pt at bedside Problems: COMMENT/RELEVANT DATA Meds Current Medications Medications (Trade) Dose Ordered Sig/Tarah Start Time Stop Time Status Last Admin Dose Admin Acetaminophen (Tylenol) 325 mg PRN Q6HRS PRN 03/30/17 07:45 04/02/17 04:27 325 MG Albuterol Sulfate (Ventolin Neb Soln) 2.5 mg PRN Q6HRS PRN 03/30/17 07:45 Albuterol/ Ipratropium (Duoneb) 3 ml RTQID 10/13/17 09:15 04/02/17 07:50 3 ML Bisacodyl (Dulcolax Tab) 10 mg PRN DAILY PRN 03/30/17 07:15 Cefpodoxime Proxetil (Vantin) 100 mg BID 04/01/17 21:00 04/02/17 08:08 100 MG Ceftriaxone Sodium 1 gm/ Sodium Chloride 50 ml @ 100 mls/hr QHS 03/30/17 00:00 04/01/17 08:05 DC 03/31/17 20:42 100 MLS/HR Docusate Sodium (Colace) 100 mg BID 03/31/17 12:00 04/01/17 21:57 100 MG Enoxaparin Sodium (Lovenox 40mg Syringe) 40 mg Q24H 03/30/17 09:00 03/30/17 11:06 DC 03/30/17 10:07 40 MG Enoxaparin Sodium (Lovenox 60mg Syringe) 60 mg Q12HR 03/30/17 21:00 04/02/17 08:12 60 MG Fentanyl Citrate (Fentanyl 2ml Vial) 50 mcg PRN Q2HR PRN 03/29/17 22:30 03/30/17 22:29 DC 03/30/17 20:16 50 MCG Ferrous Sulfate (Feosol) 325 mg DAILYWBKFT 03/30/17 08:00 04/02/17 08:08 325 MG Furosemide (Lasix) 40 mg TID 04/02/17 14:00 Guaifenesin (Mucinex) 600 mg BID 03/30/17 09:30 04/02/17 08:08 600 MG Haloperidol (Haldol) 5 mg DAILY 03/30/17 09:00 04/02/17 08:11 5 MG Influenza Virus Vaccine Quadrival (Fluarix Quad [id number] Syringe) 0.5 ml ONCE ONCE 03/30/17 09:00 03/30/17 09:01 Cancel Info (Do NOT chart on this placeholder) 1 each 1X ONCE 03/30/17 01:00 03/30/17 01:01 UNV Insulin Aspart (NovoLOG) 0-12 UNITS QIDACHS 03/30/17 11:30 04/01/17 22:53 2 UNITS Levothyroxine Sodium (Synthroid) 100 mcg DAILY07 03/30/17 07:30 04/02/17 06:26 100 MCG Lidocaine (Lidoderm) 3 patch PRN DAILY PRN 03/30/17 07:15 03/31/17 18:33 3 PATCH Lisinopril (Prinivil) 20 mg DAILY 03/30/17 09:00 03/30/17 10:16 DC Metoprolol Tartrate (Lopressor) 12.5 mg BID 03/30/17 09:00 03/30/17 11:21 DC Non-Formulary Medication 1.5 ea DAILY 04/01/17 09:00 04/01/17 09:04 1.5 EA Nystatin (Nystop) 1 bassam BID 03/30/17 09:00 04/02/17 08:11 1 BASSAM Ondansetron HCl (Zofran) 4 mg PRN Q8HRS PRN 03/29/17 22:30 03/30/17 22:29 DC Oxybutynin Chloride (Ditropan) 5 mg DAILY 03/30/17 09:00 04/02/17 08:08 5 MG Oxycodone HCl (Roxicodone) 5 mg PRN Q6HRS PRN 03/31/17 11:30 04/02/17 09:09 DC 04/02/17 04:27 5 MG Oxycodone/ Acetaminophen (Percocet 10/325) 1 tab PRN Q6HRS PRN 04/02/17 09:15 Pantoprazole Sodium (Protonix) 40 mg DAILYAC 03/30/17 07:30 04/02/17 08:08 40 MG Pneumococcal Polyvalent Vaccine (Do NOT chart on this placeholder) 1 each PRN DAILY PRN 03/30/17 01:00 Cancel Pneumococcal Polyvalent Vaccine (Pneumovax 23) 0.5 ml ONCE ONCE 03/30/17 09:30 03/30/17 09:31 DC Ropinirole HCl (Requip) 0.5 mg BID 03/30/17 09:00 04/02/17 08:10 0.5 MG Sodium Chloride 1,000 ml @ 100 mls/hr 1X ONCE 03/30/17 10:15 03/30/17 20:14 DC 03/30/17 10:15 100 MLS/HR Vitamin D (Vitamin D3) 500 unit DAILY 03/30/17 09:00 04/02/17 08:11 500 UNIT Vitamin E 200 unit DAILY 03/30/17 09:00 04/02/17 08:08 200 UNIT Lab Laboratory Tests Test 04/01/17 11:31 04/01/17 16:49 04/01/17 20:46 04/02/17 03:40 Glucose (Fingerstick) 112 mg/dL (70-99) 179 mg/dL (70-99) 155 mg/dL (70-99) Sodium Level 128 mmol/L (136-145) Potassium Level 4.2 mmol/L (3.5-5.1) Chloride Level 92 mmol/L (98-107) Carbon Dioxide Level 30 mmol/L (21-32) Anion Gap 6 (6-14) Blood Urea Nitrogen 21 mg/dL (7-20) Creatinine 1.1 mg/dL (0.6-1.0) Estimated GFR (Cockcroft-Gault) 49.7 Glucose Level 96 mg/dL (70-99) Calcium Level 9.1 mg/dL (8.5-10.1) Test 04/02/17 07:41 Glucose (Fingerstick) 102 mg/dL (70-99) AIMEE LARA MD Apr 02, 2017 10:54
[2017-04-02 11:01] VITALS: BP 124/45
[2017-04-02] MEDS: oxyCODONE/APAP 10/325 1 TAB TABLET PO PRN ×2 (13:10→19:16)
[2017-04-02] MEDS: FUROSEMIDE 40 MG TABLET. PO SCH ×2 (13:10→21:29)
--- NOTE | 2017-04-02 13:58 | PDOC ---
CARDIO Progress Notes Date and Time Date of Service 04/02/2017 Time of Evaluation 1345 Subjective Subjective: No Chest Pain, No shortness of breath, No Palpitations, Other ( complians of low back pain) Vitals Vitals Vital Signs Date Time Temp Pulse Resp B/P (MAP) Pulse Ox O2 Delivery O2 Flow Rate FiO2 04/02/17 13:10 Nasal Cannula 3.0 04/02/17 11:51 97 04/02/17 11:01 97.6 111 21 124/45 (71) 97.6 Weight Weight [ ] Input and Output Intake and Output Intake and Output 04/03/17 07:00 Intake Total 240 ml Output Total 500 ml Balance -260 ml Intake Oral 240 ml Output Urine Total 500 ml Laboratory Labs Laboratory Tests Test 04/01/17 16:49 04/01/17 20:46 04/02/17 03:40 04/02/17 07:41 Glucose (Fingerstick) 179 mg/dL (70-99) 155 mg/dL (70-99) 102 mg/dL (70-99) Sodium Level 128 mmol/L (136-145) Potassium Level 4.2 mmol/L (3.5-5.1) Chloride Level 92 mmol/L (98-107) Carbon Dioxide Level 30 mmol/L (21-32) Anion Gap 6 (6-14) Blood Urea Nitrogen 21 mg/dL (7-20) Creatinine 1.1 mg/dL (0.6-1.0) Estimated GFR (Cockcroft-Gault) 49.7 Glucose Level 96 mg/dL (70-99) Calcium Level 9.1 mg/dL (8.5-10.1) Test 04/02/17 11:45 Glucose (Fingerstick) 116 mg/dL (70-99) Microbiology Micro Microbiology 03/29/17 Urine Culture - Final, Complete 03/29/17 Urine Culture Result 1 (ADELAIDA) - Final, Complete 03/29/17 Antimicrobic Susceptibility - Final, Complete Review of Systems Constitutional: yes: weakness, alert, oriented Eyes: Yes: no symptom reported Pulmonary: Yes dyspnea Cardiovascular: Yes edema Gastrointestional: Yes: constipation Genitourinary: Yes: frequency Musculoskeletal: Yes: muscle stiffness Skin: Yes color change Psychiatric/Neurological: Yes: no symptom reported Endocrine: Yes: no symptom reported Hematologic/Lymphatic: Yes: no symptom reported Physical Exam HEENT: Neck Supple W Full Motion LUNGS: Clear to Auscultation Heart: S1S2, RRR (SR/ST) Abdomen: Soft N/T, Other (obesity) Extremities: No Calf Tenderness, Other (3-4+ bilateral LE pitting edema) Neurology: alert, oriented, follow commands Assessment Assessment 1. Dyspnea: more from COPD and anemia. SOA much better. 2. Acute on chronic diastolic CHF: right sided and mild/pulmonary induced. Recent TTE with normal EF and wall motion 3. Hypotension: resolved 4. Dependent Bilateral LE edema: venous insufficiency with venous compression due to underlying morbid obesity and inability to lay flat due to lowe back pain. 5. Anemia: Hgb 8.6 with underlying hx of myelodysplasia. 6. RADHA/Hyponatremia: Na 128, nephrology managing 7. AECOPD/moderate pulmonary HTN: better. per PCP 8. Morbid obesity with likely undiagnosed GENIA Recommendations 1. Continue present regimen and lasix therapy. 2. COPD coverage per PCP 3. BP stable. Reactive sinus tach likely from low back pain otherwise SR without ectopies. No ACEi for now with low Na. If BP meds resume would prefer metoprolol especially if tachycardia continues. 4. Would prefer KOURTNEY LEE APRN Apr 02, 2017 13:58
[2017-04-02 15:03] VITALS: BP 90/40
--- NOTE | 2017-04-02 17:25 | PDOC ---
PROGRESS NOTES Subjective She is still sleeping in chair due to pain and not elevating her legs due to pain. Sodium slowly improving but still on IV lasix. Breathing seems to be baseline. No significant walking ability or desire. Renal and cardiology following. PT recommends SNU, she failed HH Objective Afebrile tachycardic General: in chair with feet down and tense edema present of legs Heart: tach, sinus Lungs: clear Abd: obese Ext: 3+ tense lymphedema Skin: yeast present in skin folds WBC: basline affected by myelodysplasia Hgb: anemic K+: normal Creat: stable Vital Signs Vital Signs Date Time Temp Pulse Resp B/P (MAP) Pulse Ox O2 Delivery O2 Flow Rate FiO2 04/02/17 16:07 Nasal Cannula 3.0 04/02/17 15:03 98.0 92 21 90/40 (57) 100 98.0 I & O Intake and Output 04/03/17 07:00 Intake Total 840 ml Output Total 1500 ml Balance -660 ml Intake Oral 840 ml Output Urine Total 1500 ml # Voids 1 Assessment and Plan Problems Medical Problems: (1) Congestive heart failure Status: Acute (2) COPD (chronic obstructive pulmonary disease) Status: Acute (3) Hyponatremia Status: Acute (4) Moderate protein malnutrition Status: Acute (5) Morbid obesity Status: Acute (6) Urinary tract infection Status: Acute Assessment 1. Acute on chronic respiratory failure with COPD - improving, continue present tx. 2. acute exacerbation of diastolic CHF - ongoing diuresis with TID Lasix, continue but change to po. 3. CKD III with hyponatremia - renal function appears at baseline and sodium slowly improving, continue tx as per Renal. 4. UTI - E Coli which is resistant to several abx. Now on Vantin per pharmacy substitution for Rocephin, continue. 5. DM2 - controlled, continue ADA diet and SS insulin. 6. hypothyroidism - continue present dose which was increased during her hospitalization last month. 7. back pain - patient states still in too much pain to tolerate being in bed or having her legs elevated. Appears comfortable at rest in recliner. increase oxycodone to 10 mg qid. 8. schizophrenia - stable, continue home med. 9. morbid obesity with debility - patient unable to care for herself at home at this time. She is agreeable to prison placement and accepted at [facility] pending insurance approval. 10. yeast panniculitis, on nystatin, continue 11. recent lumbar back surgery - continue recovery 12. hx of urinary retention - stop oxybutynin, ACACIA Correa, monitor residuals with bladder scan Problems: Prosper MEEHAN MD Apr 02, 2017 17:25
[2017-04-02 19:20] VITALS: BP 118/50
[2017-04-02] MEDS: LIDOCAINE (700MG/PATCH) PATCH. TD PRN (21:32)
[2017-04-02 23:00] VITALS: BP 111/56
[2017-04-03] MEDS: oxyCODONE/APAP 10/325 1 TAB TABLET PO PRN ×2 (01:14→09:03)
[2017-04-03] MEDS ORDERED: diphenhydrAMINE HCL 25 MG CAPSULE PO PRN (03:00)
[2017-04-03 03:15] VITALS: BP 83/36
[2017-04-03] MEDS: LEVOTHYROXINE 100 MCG TABLET PO SCH (06:32)
[2017-04-03] MEDS: INSULIN ASPART 300 UNITS/3 ML INSULN.PEN SQ SCH ×2 (07:30→11:56)
[2017-04-03 07:43] VITALS: BP 140/47
[2017-04-03] MEDS: IPRATRPIUM/ALBUTEROL 0.5/2.5MG 3 ML NEBU. NEB SCH ×2 (07:51→11:08)
--- NOTE | 2017-04-03 08:59 | PDOC3 ---
Discharge Summary [facility] Date of Admission: Mar 29, 2017 Discharge Date: Apr 03, 2017 Admitting Diagnosis CHF, COPD EXAC, ACUTE RESPIRATORY FAILURE Problems: Final Diagnosis Problems Medical Problems: (1) Congestive heart failure Status: Acute (2) COPD (chronic obstructive pulmonary disease) Status: Acute (3) Hyponatremia Status: Acute (4) Moderate protein malnutrition Status: Acute (5) Morbid obesity Status: Acute (6) Urinary tract infection Status: Acute CONSULTS cardiology - Dr. Hurst renal - Dr. Sood Procedures TRANSFUSION OF BLOOD Brief Hospital Course Ms. Alegria is a 66 old who presented with: 1. Acute on chronic respiratory failure with COPD - improved with neb treatments which will continue. 2. acute exacerbation of diastolic CHF - ongoing diuresis with TID Lasix, initially IV but changed to po. 3. CKD III with hyponatremia - renal function appears at baseline and sodium slowly improving, continue tx as per Renal. 4. UTI - E Coli which is resistant to several abx. Now on Vantin per pharmacy substitution for Rocephin, continue. 5. DM2 - controlled, continue ADA diet and SS insulin. 6. hypothyroidism - continue present dose which was increased during her hospitalization last month. 7. back pain - patient states still in too much pain to tolerate being in bed or having her legs elevated. Appears comfortable at rest in recliner. increased oxycodone to 10 mg qid and encouraged to use pain meds to allow her to start laying flat. 8. schizophrenia - stable, continue home med. 9. morbid obesity with debility - patient unable to care for herself at home at this time. She is agreeable to long term placement and accepted at [facility]. 10. yeast panniculitis, on nystatin, continue 11. recent lumbar back surgery - continue recovery, jean marie have been removed INTERIOR WIRER 12. hx of urinary retention - replace Correa as she has 900 plus cc of urine in bladder and was only able to void once since Correa removed 16 hrs ago Problems: CONDITION AT DISCHARGE: Improved, Stable Diet diabetic Scheduled Cholecalciferol (Vitamin D3) (Vitamin D3), 400 UNIT PO DAILY, (Reported) Ferrous Sulfate (Feosol), 325 MG PO DAILYWBKFT Levothyroxine Sodium (Synthroid), 100 MCG PO DAILY07 Nystatin (Nystatin), 1 TOMAS TP BID Pioglitazone Hcl (Actos), 15 MG PO DAILY, (Reported) Ropinirole Hcl (Requip), 0.5 MG PO BID, (Reported) Tamsulosin Hcl (Flomax), 0.4 MG PO QHS [Metoprolol Tartrate], 12.5 MG PO BID Scheduled PRN Albuterol Sulfate (Proair Hfa Inhaler), 1 PUFF INH PRN Q6HRS PRN for SHORTNESS OF BREATH, (Reported) Bisacodyl (Bisacodyl), 10 MG PO PRN DAILY PRN for CONSTIPATION Hydrocodone Bit/Acetaminophen (Hydrocodone-Apap 5-325 ), 1 TAB PO PRN Q4HRS PRN for PAIN Lidocaine (Lidocaine), 3 PATCH TD PRN DAILY PRN for TOPICAL PAIN Magnesium Citrate (Citroma), 296 ML PO PRN 1X PRN for CONSTIPATION Oxycodone Hcl/Acetaminophen (Oxycodon-Acetaminophen 2.5-325), 1 EACH PO PRN Q6HRS PRN for PAIN, (Reported) Miscellaneous Medications Arformoterol Tartrate (Brovana), 15 MCG IH, (Reported) Atorvastatin Calcium (Lipitor), 80 MG PO, (Reported) Dulaglutide (Trulicity), 0.75 MG SQ, (Reported) Fluticasone Propionate (Flovent 220MCG Hfa), 12 GM IH, (Reported) Haloperidol (Haloperidol), 5 MG PO, (Reported) Lisinopril (Lisinopril), 20 MG PO, (Reported) Meloxicam (Meloxicam), 15 MG PO, (Reported) Omeprazole (Prilosec), 20 MG PO, (Reported) Oxybutynin Chloride (Oxybutynin Chloride), 5 MG PO, (Reported) Valacyclovir Hcl (Valacyclovir), 1,000 MG PO, (Reported) Vitamin E (Vitamin E), 1,000 UNIT PO, (Reported) Follow Up 1-2 weeks after SNU discharge Prosper MEEHAN MD Apr 03, 2017 08:59
[2017-04-03] MEDS: NYSTATIN TOPICAL POWDER 15GM BOTTLE. TP SCH (09:00)
[2017-04-03] MEDS: rOPINIRole 0.25 MG TABLET. PO SCH (09:02)
[2017-04-03] MEDS: FUROSEMIDE 40 MG TABLET. PO SCH (09:02)
[2017-04-03] MEDS: PANTOPRAZOLE 40 MG TABLET.DR. PO SCH (09:02)
[2017-04-03] MEDS: FERROUS SULFATE 325 MG TABLET. PO SCH (09:02)
[2017-04-03] MEDS: OXYBUTYNIN CHLORIDE 5 MG TABLET PO SCH (09:02)
[2017-04-03] MEDS: CEFPODOXIME PROXETIL 100 MG TABLET. PO SCH (09:02)
[2017-04-03] MEDS: CHOLECALCIFEROL (VITAMIN D3) 1,000 UNIT TABLET PO SCH (09:03)
[2017-04-03] MEDS: HALOPERIDOL 5 MG TABLET. PO SCH (09:03)
[2017-04-03] MEDS: DOCUSATE SODIUM 100 MG CAPSULE. PO SCH (09:03)
[2017-04-03] MEDS: VITAMIN E 200 UNIT CAPSULE. PO SCH (09:03)
[2017-04-03 10:23] VITALS: BP 154/57
--- NOTE | 2017-04-03 11:53 | PDOC ---
SUBJECTIVE ROS f/up for Hyponatremia Had to have sawyer placed this am CVS: no Orthopnea, no CP RESP: no SOB, ? AMBROCIO - not ambulated GI: no Nausea, no Vomiting : no Dysuria, no Urgency - sawyer bakc in OBJECTIVE Vital Signs Vital Signs Date Time Temp Pulse Resp B/P (MAP) Pulse Ox O2 Delivery O2 Flow Rate FiO2 04/03/17 11:09 Nasal Cannula 3.0 04/03/17 10:23 98.6 126 23 154/57 (89) 97 98.6 I & 0 Intake and Output 04/04/17 07:00 Output Total 2000 ml Balance -2000 ml Output Urine Total 2000 ml PHYSICAL EXAM Physical Exam GEN: Awake, Oriented x 2-3 when awake, In no distress EYES: Vision Unchanged, Conjunctiva Normal EN: No EN Drainage, Mucous Membranes moist NECK: no JVD, no JVP, Supple, no Thyromegaly - short thick neck CVS: S1S2, ? Murmur, No Gallop, No Rub,+2-3 Edema - distal HS RESP: no Rales, no Rhonchi,no Acc. Muscle Use - distal BS GI: BS + ve, NO Bruit, Non Tender, Non Distended - morbidly obese : no CVA tenderness, no Suprapubic Tenderness DIAGNOSIS/ASSESSMENT Assessment & Plan Miquel - VMN asso with NSAID use: Creat was imrpving - no labs today. ? CKD III - given current GFR Urinary retention - pt claims she has had this problem in the past - this may be contributing to some HypoNatremia too - ? Pre-dates back surgery - defer to Dr Pandey to refer to URO as OP HypoNatremia - no labs today ANEMIA; Presumably Post -op - check Clark HTN: Current BP meds as reviewed. See orders for changes. Edema - multifactorial - diuresis as ongoing - agree with Dr Natali treviño GENIA and ^^ PASWP (if measured) Discussed Plan of Care with pt at bedside COMMENT/RELEVANT DATA Meds Current Medications Medications (Trade) Dose Ordered Sig/Tarah Start Time Stop Time Status Last Admin Dose Admin Acetaminophen (Tylenol) 325 mg PRN Q6HRS PRN 03/30/17 07:45 04/02/17 04:27 325 MG Albuterol Sulfate (Ventolin Neb Soln) 2.5 mg PRN Q6HRS PRN 03/30/17 07:45 Albuterol/ Ipratropium (Duoneb) 3 ml RTQID 03/30/17 09:15 04/03/17 11:08 3 ML Bisacodyl (Dulcolax Tab) 10 mg PRN DAILY PRN 03/30/17 07:15 Cefpodoxime Proxetil (Vantin) 100 mg BID 04/01/17 21:00 04/03/17 09:02 100 MG Ceftriaxone Sodium 1 gm/ Sodium Chloride 50 ml @ 100 mls/hr QHS 03/30/17 00:00 04/01/17 08:05 DC 03/31/17 20:42 100 MLS/HR Diphenhydramine HCl (Benadryl) 25 mg PRN Q6HRS PRN 04/03/17 03:00 04/03/17 03:15 25 MG Docusate Sodium (Colace) 100 mg BID 03/31/17 12:00 04/03/17 09:03 100 MG Enoxaparin Sodium (Lovenox 40mg Syringe) 40 mg Q24H 03/30/17 09:00 03/30/17 11:06 DC 03/30/17 10:07 40 MG Enoxaparin Sodium (Lovenox 60mg Syringe) 60 mg Q12HR 03/30/17 21:00 04/03/17 09:04 60 MG Fentanyl Citrate (Fentanyl 2ml Vial) 50 mcg PRN Q2HR PRN 03/29/17 22:30 03/30/17 22:29 DC 03/30/17 20:16 50 MCG Ferrous Sulfate (Feosol) 325 mg DAILYWBKFT 03/30/17 08:00 04/03/17 09:02 325 MG Furosemide (Lasix) 40 mg TID 04/02/17 14:00 04/03/17 09:02 40 MG Guaifenesin (Mucinex) 600 mg BID 03/30/17 09:30 04/03/17 09:02 600 MG Haloperidol (Haldol) 5 mg DAILY 03/30/17 09:00 04/03/17 09:03 5 MG Influenza Virus Vaccine Quadrival (Fluarix Quad [id number] Syringe) 0.5 ml ONCE ONCE 03/30/17 09:00 03/30/17 09:01 Cancel Info (Do NOT chart on this placeholder) 1 each 1X ONCE 03/30/17 01:00 03/30/17 01:01 UNV Insulin Aspart (NovoLOG) 0-12 UNITS QIDACHS 03/30/17 11:30 04/02/17 21:31 2 UNITS Levothyroxine Sodium (Synthroid) 100 mcg DAILY07 03/30/17 07:30 04/03/17 06:32 100 MCG Lidocaine (Lidoderm) 3 patch PRN DAILY PRN 03/30/17 07:15 04/02/17 21:32 3 PATCH Lisinopril (Prinivil) 20 mg DAILY 03/30/17 09:00 03/30/17 10:16 DC Metoprolol Tartrate (Lopressor) 12.5 mg BID 03/30/17 09:00 03/30/17 11:21 DC Non-Formulary Medication 1.5 ea WEEKLY 04/09/17 09:00 Nystatin (Nystop) 1 bassam BID 03/30/17 09:00 04/03/17 09:00 1 BASSAM Ondansetron HCl (Zofran) 4 mg PRN Q8HRS PRN 03/29/17 22:30 03/30/17 22:29 DC Oxybutynin Chloride (Ditropan) 5 mg DAILY 03/30/17 09:00 04/03/17 09:02 5 MG Oxycodone HCl (Roxicodone) 5 mg PRN Q6HRS PRN 03/31/17 11:30 04/02/17 09:09 DC 04/02/17 04:27 5 MG Oxycodone/ Acetaminophen (Percocet 10/325) 1 tab PRN Q6HRS PRN 04/02/17 09:15 04/03/17 09:03 1 TAB Pantoprazole Sodium (Protonix) 40 mg DAILYAC 03/30/17 07:30 04/03/17 09:02 40 MG Pneumococcal Polyvalent Vaccine (Do NOT chart on this placeholder) 1 each PRN DAILY PRN 03/30/17 01:00 Cancel Pneumococcal Polyvalent Vaccine (Pneumovax 23) 0.5 ml ONCE ONCE 03/30/17 09:30 03/30/17 09:31 DC Ropinirole HCl (Requip) 0.5 mg BID 03/30/17 09:00 04/03/17 09:02 0.5 MG Sodium Chloride 1,000 ml @ 100 mls/hr 1X ONCE 03/30/17 10:15 03/30/17 20:14 DC 03/30/17 10:15 100 MLS/HR Vitamin D (Vitamin D3) 500 unit DAILY 03/30/17 09:00 04/03/17 09:03 500 UNIT Vitamin E 200 unit DAILY 03/30/17 09:00 04/03/17 09:03 200 UNIT Lab Laboratory Tests Test 04/02/17 16:22 04/02/17 20:39 04/03/17 07:45 04/03/17 11:34 Glucose (Fingerstick) 178 mg/dL (70-99) 151 mg/dL (70-99) 92 mg/dL (70-99) 152 mg/dL (70-99) AIMEE LARA MD Apr 03, 2017 11:53
[2017-04-09] MEDS ORDERED: TRULICITY 1.5 MG/0.5 ML SQ SCH (09:00)
== END 2017-04-03 12:50 | DRG 291 ==
LOC: ER 20:09 → 2 SOUTH 22:23 → 2 NORTH 03-30 18:24
PROVIDERS: ADMIT Family Medicine; ATTEND Family Medicine
PROC: 30233N1 Transfusion of Nonautologous Red Blood Cells into Peripheral Vein, Percutaneous Approach (ICD-10-PCS; principal; 2017-03-30)
DX: I13.0 Hypertensive heart and chronic kidney disease with heart failure and stage 1 through stage 4 chronic kidney disease, or unspecified chronic kidney disease (principal); N17.0 Acute kidney failure with tubular necrosis; J96.20 Acute and chronic respiratory failure, unspecified whether with hypoxia or hypercapnia; R65.11 Systemic inflammatory response syndrome (SIRS) of non-infectious origin with acute organ dysfunction; E44.0 Moderate protein-calorie malnutrition; I27.20 Pulmonary hypertension, unspecified; I95.9 Hypotension, unspecified; E11.22 Type 2 diabetes mellitus with diabetic chronic kidney disease; E66.01 Morbid (severe) obesity due to excess calories; I50.33 Acute on chronic diastolic (congestive) heart failure; E87.1 Hypo-osmolality and hyponatremia; N39.0 Urinary tract infection, site not specified; F20.0 Paranoid schizophrenia; J44.1 Chronic obstructive pulmonary disease with (acute) exacerbation; I87.1 Compression of vein; Z68.43 Body mass index [BMI] 50.0-59.9, adult; B96.20 Unspecified Escherichia coli [E. coli] as the cause of diseases classified elsewhere; D64.9 Anemia, unspecified; E03.9 Hypothyroidism, unspecified; E78.00 Pure hypercholesterolemia, unspecified; E78.5 Hyperlipidemia, unspecified; I87.2 Venous insufficiency (chronic) (peripheral); I35.0 Nonrheumatic aortic (valve) stenosis; K21.9 Gastro-esophageal reflux disease without esophagitis; M79.3 Panniculitis, unspecified; N18.3 Chronic kidney disease, stage 3 (moderate); G89.29 Other chronic pain; Z99.81 Dependence on supplemental oxygen; Z87.891 Personal history of nicotine dependence; Z90.81 Acquired absence of spleen; Z90.49 Acquired absence of other specified parts of digestive tract; Z98.51 Tubal ligation status; Z88.0 Allergy status to penicillin; Z88.1 Allergy status to other antibiotic agents; Z82.49 Family history of ischemic heart disease and other diseases of the circulatory system
CPT/HCPCS: 36415; 51702; 71010; 78582; 80048; 80053; 81001; 82274; 82553; 82962; 83735; 83880; 84484; 85007; 85025; 86850; 86900; 86901; 86920; 87086; 87186; 93005; 93970; 94250; 94640; 94760; 96374; 96375; A9540; A9558; J0696; J1650; J1815; J1940; J2405; J3010; J7030; J7620; P9016; Q0163; 97110; 97530; 97535; 99285-25

== ENCOUNTER 2017-05-26 11:51 | Inpatient (IN) | payer BC ==
[2017-05-26] VITALS (10 sets, daily range): BP systolic 71–139; BP diastolic 44–79
[~2017-05-26] VITALS: Ht 167.6 cm; Wt 162.4 kg
--- NOTE | 2017-05-26 12:09 | PHYS DOC ---
Past Medical History Past Medical History: Asthma, COPD, Diabetes-Type II, GERD, High Cholesterol, Hypertension, Hypothyroid, Schizophrenia Past Surgical History: Cholecystectomy, Splenectomy, Tonsillectomy, Tubal ligation Additional Past Surgical Histo: Breast Augmentation Alcohol Use: None Drug Use: None Adult General Chief Complaint Chief Complaint: generalized weakness HPI HPI Patient is a 66 year old female who presents with generalized weakness and back pain. She states she's had a herniated disc repair back in March and has had an indwelling catheter since then. She states she has a second herniated disc and this is been causing her pain. She states it flared up 2 days ago. She denies any trauma to the area or falls. EMS was called this morning to help her get off the sofa because she was too weak to get up. There were then called back because of uncontrolled pain. She denies any nausea vomiting or chest pain. She states nothing she does makes the pain better she's been sleeping in her recliner over the last 2 days and she states if she sits up it makes it feel a little bit better. She denies any numbness in her legs. Review of Systems Review of Systems Constitutional: Denies fever or chills [] Eyes: Denies change in visual acuity, redness, or eye pain [] HENT: Denies nasal congestion or sore throat [] Respiratory: Denies cough or shortness of breath [] Cardiovascular: No additional information not addressed in HPI [] GI: Denies abdominal pain, nausea, vomiting, bloody stools or diarrhea [] : Denies dysuria or hematuria [] Musculoskeletal: Positive for back pain, Denies joint pain [] Integument: Denies rash or skin lesions [] Neurologic: Denies headache, focal weakness or sensory changes [] Endocrine: Denies polyuria or polydipsia [] All other systems were reviewed and found to be within normal limits, except as documented in this note. Current Medications Current Medications Current Medications Medications (Trade) Dose Ordered Sig/Tarah Start Time Stop Time Status Last Admin Dose Admin Fentanyl Citrate (Fentanyl 2ml Vial) 25 mcg PRN Q15MIN PRN 05/26/17 12:45 05/27/17 12:44 05/26/17 14:44 25 MCG Sodium Chloride 1,000 ml @ 1,000 mls/hr 1X ONCE 05/26/17 14:30 05/26/17 15:29 DC 05/26/17 14:40 1,000 MLS/HR Allergies Allergies Allergies Coded Allergies Type Severity Reaction Last Updated Verified erythromycin base Allergy Intermediate Hives 03/10/17 Yes Penicillins Allergy Mild TIRED 11/19/13 Yes Physical Exam Physical Exam Constitutional: Well developed, well nourished, no acute distress, non-toxic appearance. [] HENT: Normocephalic, atraumatic, bilateral external ears normal, oropharynx dry , no oral exudates, nose normal. [] Eyes: PERRLA, EOMI, conjunctiva normal, no discharge. [] Neck: Normal range of motion, no tenderness, supple, no stridor. [] Cardiovascular:Heart rate regular rhythm, no murmur [] Lungs & Thorax: Bilateral breath sounds clear to auscultation [] Abdomen: Bowel sounds normal, soft, no tenderness, no masses, no pulsatile masses. Indwelling Correa catheter in place. Skin: Warm, dry, 2+ swelling of her bilateral lower extremities with erythema to mid thighs Back: No midline tenderness, no CVA tenderness. Well-healed midline lumbar scar Extremities: No tenderness, no cyanosis, no clubbing, ROM intact, plus bilateral lower extremity edema. [] Neurologic: Alert and oriented X 3, normal motor function, normal sensory function, no focal deficits noted. [] Psychologic: Affect normal, judgement normal, mood normal. [] Current Patient Data Vital Signs Vital Signs Date Time Temp Pulse Resp B/P (MAP) Pulse Ox O2 Delivery O2 Flow Rate FiO2 05/26/17 14:47 62 100 05/26/17 13:23 20 Nasal Cannula 05/26/17 11:53 97.4 3.0 97.4 Lab Values Laboratory Tests Test 05/26/17 13:08 05/26/17 14:34 White Blood Count 19.4 x10^3/uL (4.0-11.0) H Red Blood Count 3.20 x10^6/uL (3.50-5.40) L Hemoglobin 9.4 g/dL (12.0-15.5) L Hematocrit 29.3 % (36.0-47.0) L Mean Corpuscular Volume 92 fL (79-100) Mean Corpuscular Hemoglobin 30 pg (25-35) Mean Corpuscular Hemoglobin Concent 32 g/dL (31-37) Red Cell Distribution Width 15.1 % (11.5-14.5) H Platelet Count 585 x10^3/uL (140-400) H Neutrophils (%) (Auto) 87 % (31-73) H Lymphocytes (%) (Auto) 6 % (24-48) L Monocytes (%) (Auto) 6 % (0-9) Eosinophils (%) (Auto) 1 % (0-3) Basophils (%) (Auto) 0 % (0-3) Neutrophils # (Auto) 16.9 x10^3uL (1.8-7.7) H Lymphocytes # (Auto) 1.2 x10^3/uL (1.0-4.8) Monocytes # (Auto) 1.1 x10^3/uL (0.0-1.1) Eosinophils # (Auto) 0.1 x10^3/uL (0.0-0.7) Basophils # (Auto) 0.1 x10^3/uL (0.0-0.2) Segmented Neutrophils % 78 % (35-66) H Band Neutrophils % 7 % (0-9) Lymphocytes % 9 % (24-48) L Monocytes % 5 % (0-10) Eosinophils % 1 % (0-5) Platelet Estimate Increased (ADEQUATE) Poikilocytosis Slight Juanpablo Cells Occ Schistocytes Occ RBC Morphology Bizarre Forms Occ Prothrombin Time 14.8 SEC (11.7-14.0) H Prothrombin Time INR 1.2 (0.8-1.1) H Sodium Level 121 mmol/L (136-145) L Potassium Level 4.5 mmol/L (3.5-5.1) Chloride Level 84 mmol/L (98-107) L Carbon Dioxide Level 28 mmol/L (21-32) Anion Gap 9 (6-14) Blood Urea Nitrogen 40 mg/dL (7-20) H Creatinine 2.2 mg/dL (0.6-1.0) H Estimated GFR (Cockcroft-Gault) 22.3 Glucose Level 127 mg/dL (70-99) H Lactic Acid Level 2.3 mmol/L (0.4-2.0) H Calcium Level 9.3 mg/dL (8.5-10.1) Magnesium Level 1.8 mg/dL (1.8-2.4) Total Bilirubin 0.7 mg/dL (0.2-1.0) Direct Bilirubin 0.2 mg/dL (0.0-0.2) Aspartate Amino Transferase (AST) 26 U/L (15-37) Alanine Aminotransferase (ALT) 15 U/L (14-59) Alkaline Phosphatase 203 U/L (46-116) H Creatine Kinase 139 U/L (26-192) Creatine Kinase MB (Mass) 3.0 ng/mL (0.0-3.6) Creatine Kinase MB Relative Index 2.2 % (0-4) Troponin I Quantitative < 0.017 ng/mL (0.000-0.055) GD-Smk-[id number]-Type Natriuretic Peptide 3486 pg/mL (0-124) H Total Protein 6.4 g/dL (6.4-8.2) Albumin 2.8 g/dL (3.4-5.0) L Lipase 51 U/L (73-393) L Thyroid Stimulating Hormone (TSH) 19.266 uIU/mL (0.358-3.74) H Urine Collection Type Unknown Urine Color Yellow Urine Clarity Cloudy Urine pH 5.5 Urine Specific [place] 1.015 Urine Protein 30 mg/dL (NEG-TRACE) Urine Glucose (UA) Negative mg/dL (NEG) Urine Ketones (Stick) Negative mg/dL (NEG) Urine Blood Large (NEG) Urine Nitrite Negative (NEG) Urine Bilirubin Small (NEG) Urine Urobilinogen Dipstick 0.2 mg/dL (0.2 mg/dL) Urine Leukocyte Esterase Large (NEG) Urine RBC >40 /HPF (0-2) Urine WBC >40 /HPF (0-4) Urine Squamous Epithelial Cells Few /LPF Urine Bacteria Many /HPF (0-FEW) Urine Hyaline Casts Moderate /HPF Laboratory Tests 05/26/17 13:08 Laboratory Tests 05/26/17 13:08 EKG EKG EKG shows irregular rhythm with a rate of [address] elevations or concerning T-wave inversions, normal axis, QTC 452 ms, as interpreted by me. Radiology/Procedures Radiology/Procedures [facility] [address] [place] [address] IMAGING REPORT Signed PATIENT: DOUGIE MENDIOLA ACCOUNT: [id number] : 1950 LOCATION: ER AGE: 66 SEX: F EXAM STATUS: REG ER ORD. PHYSICIAN: BESSY BERRY MD REASON: weakness PROCEDURE: PORTABLE CHEST 1V AP chest. History: Weakness, COPD, short of air AP view was taken of the chest. Lungs are clear. Heart is normal in size without heart failure. There is no effusion. There has been no definite change compared to the study from March. PA and lateral views would be of benefit for better evaluation. Impression: 1. No definite infiltrates. DICTATED and SIGNED BY: PRAMOD ALBERTO MD DATE: 05/26/17 1246 CC: BESSY BERRY MD; Prosper PANDEY MD ~ Impressions: Hypotension Elevated lactic acid Dehydration Acute renal failure Hyponatremia Course & Med Decision Making Course & Med Decision Making Pertinent Labs and Imaging studies reviewed. (See chart for details) Patient presents with erythematous legs and blood pressure in the 80s. She complained of back pain but I do not appreciate any open wounds on her back, she has a well healed incision in her lumbar area. Her lower legs are erythematous and swollen. Her lactic acid is elevated in addition to sodium and chloride being low. She also has an elevated creatinine level therefore I believe she is likely severely dehydrated. She was given 2 L normal saline and her blood pressure has improved. She started clindamycin since she hasn't acute renal failure at this time and allergic to penicillin. I did speak with Dr. Pandey and put a consult and for infectious disease. Interim orders have been written. She's going intensive care unit in critical but stable condition at this time. Patient does not have an elevated heart rate, fever or tachypnea. Her white blood cell counts are chronically elevated. At this point she does not trigger sepsis criteria. I believe she is dehydrated secondary to the fact that she's not been eating or drinking much at home and cannot take care of herself. Her urine does come back positive for UTI however she has a chronic and following catheter in place and was informed is taken out of the old part of the catheter. My Critical Care: Critical Care Time: 55 minutes Treatments/Evaluations: Close monitoring and treatment of unstable vital signs, cardiorespiratory, and neurologic status, while maintaining tight balance of fluid, respiratory, and cardiac interventions. Dragon Disclaimer Dragon Disclaimer This electronic medical record was generated, in whole or in part, using a voice recognition dictation system. Departure Departure Impression: Primary Impression: Back pain Additional Impressions: Weakness Hypotension Disposition: ADMITTED INPATIENT Admitting Physician: Yoselin Pandey Condition: STABLE Referrals: Prosper PANDEY MD (PCP) Problem Qualifiers BESSY BERRY MD May 26, 2017 12:09
--- NOTE | 2017-05-26 12:51 | RAD ---
AP chest. History: Weakness, COPD, short of air AP view was taken of the chest. Lungs are clear. Heart is normal in size without heart failure. There is no effusion. There has been no definite change compared to the study from March. PA and lateral views would be of benefit for better evaluation. Impression: 1. No definite infiltrates.
[2017-05-26] MEDS: fentaNYL PF VIAL 100 MCG/2 ML VIAL IV PRN ×4 (13:23→22:56)
[2017-05-26 13:26] LABS: BASO # 0.1 x10^3/uL (0.0-0.2); BASO % 0 % (0-3); EOS % 1 % (0-3); HEMATOCRIT 29.3 % (36.0-47.0); HEMOGLOBIN 9.4 g/dL (12.0-15.5); LYMPH # 1.2 x10^3/uL (1.0-4.8); LYMPH % 6 % (24-48); MEAN CORPUSCULAR HEMOGLOBIN 30 pg (25-35); MEAN CORPUSCULAR HGB CONC 32 g/dL (31-37); MEAN CORPUSCULAR VOLUME 92 fL (79-100); MONO % 6 % (0-9); NEUT % 87 % (31-73); PLATELET COUNT 585 x10^3/uL (140-400); RED CELL DISTRIBUTION WIDTH 15.1 % (11.5-14.5); WHITE BLOOD COUNT 19.4 x10^3/uL (4.0-11.0)
[2017-05-26 13:35] LABS: INR 1.2 (0.8-1.1); PROTHROMBIN TIME PATIENT 14.8 SEC (11.7-14.0)
[2017-05-26 13:41] LABS: CALCIUM 9.3 mg/dL (8.5-10.1); CREATININE 2.2 mg/dL (0.6-1.0); GFR 22.3; POTASSIUM 4.5 mmol/L (3.5-5.1)
--- NOTE | 2017-05-26 13:46 | EKG ---
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
[2017-05-26 13:47] LABS: ALBUMIN 2.8 g/dL (3.4-5.0); DIRECT BILIRUBIN 0.2 mg/dL (0.0-0.2); MAGNESIUM 1.8 mg/dL (1.8-2.4); TOTAL BILIRUBIN 0.7 mg/dL (0.2-1.0); TOTAL PROTEIN 6.4 g/dL (6.4-8.2)
[2017-05-26] MEDS ORDERED: IV NORMAL SALINE 1000ML BAG 1,000 ML IV ONE ×2 (14:30→16:00)
[2017-05-26 14:44] LABS: BILIRUBIN,URINE SMALL (NEG); GLUCOSE,URINE NEGATIVE (NEG); NITRITE,URINE NEGATIVE (NEG); PH,URINE 5.5; PROTEIN,URINE 30 mg/dL (NEG-TRACE); UROBILINOGEN,URINE 0.2 mg/dL (0.2 mg/dL)
[2017-05-26 14:46] LABS: BACTERIA,URINE MANY /HPF (0-FEW); RBC,URINE >40 /HPF (0-2); WBC,URINE >40 /HPF (0-4)
[2017-05-26 14:47] LABS: SQUAMOUS EPITHELIAL CELL,UR FEW /LPF
[2017-05-26] MEDS ORDERED: CLINDAMYCIN 900MG PREMIX 50 ML IV ONE (15:00)
[2017-05-26 15:02] LABS: % EOS 1 % (0-5); PLT ESTIMATE INCREASED (ADEQUATE); POIKILOCYTOSIS SLIGHT
[2017-05-26 15:03] LABS: BURR CELLS OCC; SCHISTOCYTES OCC
[2017-05-26] MEDS: IV NORMAL SALINE 1000ML BAG 1,000 ML IV SCH ×2 (17:00→18:28)
[2017-05-26] MEDS ORDERED: NOREPINEPHRIN PREMIX 250 ML IV PRN (18:15)
[2017-05-26 18:28] LABS: BILIRUBIN,URINE SMALL (NEG); GLUCOSE,URINE NEGATIVE (NEG); NITRITE,URINE NEGATIVE (NEG); PH,URINE 5.5; PROTEIN,URINE 30 mg/dL (NEG-TRACE); UROBILINOGEN,URINE 0.2 mg/dL (0.2 mg/dL)
[2017-05-26 18:44] LABS: BACTERIA,URINE 0 /HPF (0-FEW)
[2017-05-26] MEDS: CEFEPIME HCL IV Push 1 GM VIAL. IVP SCH (20:31)
[2017-05-26] MEDS ORDERED: ONDANSETRON PF 4 MG/2 ML VIAL. IV PRN (21:00)
[2017-05-26] MEDS ORDERED: CEFEPIME HCL 1 GM in IV DEXTROSE 5% 50 ML IV SCH (21:00)
[2017-05-27] VITALS (15 sets, daily range): BP systolic 75–136; BP diastolic 42–67
[2017-05-27 04:29] LABS: BASO % 0 % (0-3); EOS % 1 % (0-3); HEMATOCRIT 29.3 % (36.0-47.0); HEMOGLOBIN 9.4 g/dL (12.0-15.5); LYMPH # 1.2 x10^3/uL (1.0-4.8); LYMPH % 8 % (24-48); MEAN CORPUSCULAR HEMOGLOBIN 30 pg (25-35); MEAN CORPUSCULAR HGB CONC 32 g/dL (31-37); MEAN CORPUSCULAR VOLUME 92 fL (79-100); MONO % 7 % (0-9); NEUT % 84 % (31-73); PLATELET COUNT 578 x10^3/uL (140-400); RED BLOOD COUNT 3.18 x10^6/uL (3.50-5.40); RED CELL DISTRIBUTION WIDTH 15.4 % (11.5-14.5); WHITE BLOOD COUNT 15.6 x10^3/uL (4.0-11.0)
[2017-05-27 05:11] LABS: CALCIUM 8.5 mg/dL (8.5-10.1); CREATININE 1.8 mg/dL (0.6-1.0); GFR 28.2; POTASSIUM 4.4 mmol/L (3.5-5.1)
[2017-05-27] MEDS: CEFEPIME HCL IV Push 1 GM VIAL. IVP SCH ×2 (07:46→20:54)
[2017-05-27] MEDS ORDERED: BISACODYL 5 MG TABLET.DR. PO PRN (08:45)
[2017-05-27] MEDS: METOPROLOL TART IMMED RELEASE 25 MG TABLET. PO SCH ×2 (09:00→20:57)
[2017-05-27] MEDS: BUDESONIDE 0.5 MG/2 ML NEBU. NEB SCH (09:00)
[2017-05-27] MEDS: LISINOPRIL 10 MG TABLET PO SCH (09:00)
[2017-05-27] MEDS: NYSTATIN 100,000 UNIT/GM TOPICAL CREAM 15GM TUBE. TP SCH ×2 (09:23→20:55)
[2017-05-27] MEDS: PIOGLITAZONE 15 MG TABLET. PO SCH (09:24)
[2017-05-27] MEDS: CHOLECALCIFEROL (VITAMIN D3) 1,000 UNIT TABLET PO SCH (09:24)
[2017-05-27] MEDS: FERROUS SULFATE 325 MG TABLET. PO SCH (09:25)
[2017-05-27] MEDS: VITAMIN E 200 UNIT CAPSULE. PO SCH (09:25)
[2017-05-27] MEDS: rOPINIRole 0.25 MG TABLET. PO SCH ×3 (09:25→20:56)
[2017-05-27] MEDS: MELOXICAM 7.5 MG TABLET PO SCH (09:26)
[2017-05-27] MEDS: HYDROcodone/APAP 5/325MG 1 TAB TABLET PO PRN ×2 (09:30→15:59)
--- NOTE | 2017-05-27 10:08 | PDOC ---
Infectious Disease Note ROS ROS Vital Sign Vital Signs Vital Signs Date Time Temp Pulse Resp B/P (MAP) Pulse Ox O2 Delivery O2 Flow Rate FiO2 05/27/17 08:00 96.5 88 20 116/57 (76) 97 Nasal Cannula 3.0 96.5 Labs Lab Laboratory Tests Test 05/26/17 13:08 05/26/17 14:34 05/26/17 18:00 05/26/17 21:35 White Blood Count 19.4 x10^3/uL (4.0-11.0) Red Blood Count 3.20 x10^6/uL (3.50-5.40) Hemoglobin 9.4 g/dL (12.0-15.5) Hematocrit 29.3 % (36.0-47.0) Mean Corpuscular Volume 92 fL (79-100) Mean Corpuscular Hemoglobin 30 pg (25-35) Mean Corpuscular Hemoglobin Concent 32 g/dL (31-37) Red Cell Distribution Width 15.1 % (11.5-14.5) Platelet Count 585 x10^3/uL (140-400) Neutrophils (%) (Auto) 87 % (31-73) Lymphocytes (%) (Auto) 6 % (24-48) Monocytes (%) (Auto) 6 % (0-9) Eosinophils (%) (Auto) 1 % (0-3) Basophils (%) (Auto) 0 % (0-3) Neutrophils # (Auto) 16.9 x10^3uL (1.8-7.7) Lymphocytes # (Auto) 1.2 x10^3/uL (1.0-4.8) Monocytes # (Auto) 1.1 x10^3/uL (0.0-1.1) Eosinophils # (Auto) 0.1 x10^3/uL (0.0-0.7) Basophils # (Auto) 0.1 x10^3/uL (0.0-0.2) Segmented Neutrophils % 78 % (35-66) Band Neutrophils % 7 % (0-9) Lymphocytes % 9 % (24-48) Monocytes % 5 % (0-10) Eosinophils % 1 % (0-5) Platelet Estimate Increased (ADEQUATE) Poikilocytosis Slight Juanpablo Cells Occ Schistocytes Occ RBC Morphology Bizarre Forms Occ Prothrombin Time 14.8 SEC (11.7-14.0) Prothromb Time International Ratio 1.2 (0.8-1.1) Sodium Level 121 mmol/L (136-145) Potassium Level 4.5 mmol/L (3.5-5.1) Chloride Level 84 mmol/L (98-107) Carbon Dioxide Level 28 mmol/L (21-32) Anion Gap 9 (6-14) Blood Urea Nitrogen 40 mg/dL (7-20) Creatinine 2.2 mg/dL (0.6-1.0) Estimated GFR (Cockcroft-Gault) 22.3 Glucose Level 127 mg/dL (70-99) Lactic Acid Level 2.3 mmol/L (0.4-2.0) 1.6 mmol/L (0.4-2.0) Calcium Level 9.3 mg/dL (8.5-10.1) Magnesium Level 1.8 mg/dL (1.8-2.4) Total Bilirubin 0.7 mg/dL (0.2-1.0) Direct Bilirubin 0.2 mg/dL (0.0-0.2) Aspartate Amino Transf (AST/SGOT) 26 U/L (15-37) Alanine Aminotransferase (ALT/SGPT) 15 U/L (14-59) Alkaline Phosphatase 203 U/L (46-116) Creatine Kinase 139 U/L (26-192) Creatine Kinase MB (Mass) 3.0 ng/mL (0.0-3.6) Creatine Kinase MB Relative Index 2.2 % (0-4) Troponin I Quantitative < 0.017 ng/mL (0.000-0.055) IQ-Xcs-A-Type Natriuretic Peptide 3486 pg/mL (0-124) Total Protein 6.4 g/dL (6.4-8.2) Albumin 2.8 g/dL (3.4-5.0) Lipase 51 U/L (73-393) Thyroid Stimulating Hormone (TSH) 19.266 uIU/mL (0.358-3.74) Urine Collection Type Unknown Unknown Urine Color Yellow Yellow Urine Clarity Cloudy Clear Urine pH 5.5 5.5 Urine Specific [place] 1.015 1.020 Urine Protein 30 mg/dL (NEG-TRACE) 30 mg/dL (NEG-TRACE) Urine Glucose (UA) Negative mg/dL (NEG) Negative mg/dL (NEG) Urine Ketones (Stick) Negative mg/dL (NEG) Negative mg/dL (NEG) Urine Blood Large (NEG) Trace (NEG) Urine Nitrite Negative (NEG) Negative (NEG) Urine Bilirubin Small (NEG) Small (NEG) Urine Urobilinogen Dipstick 0.2 mg/dL (0.2 mg/dL) 0.2 mg/dL (0.2 mg/dL) Urine Leukocyte Esterase Large (NEG) Moderate (NEG) Urine RBC >40 /HPF (0-2) 3-5 /HPF (0-2) Urine WBC >40 /HPF (0-4) 5-10 /HPF (0-4) Urine Squamous Epithelial Cells Few /LPF Urine Bacteria Many /HPF (0-FEW) 0 /HPF (0-FEW) Urine Hyaline Casts Moderate /HPF Many /HPF Urine Transitional Epithelial Cells Mod /LPF Urine Amorphous Sediment Present /HPF Urine Mucus Mod /LPF Test 05/27/17 03:00 05/27/17 03:26 05/27/17 07:54 White Blood Count 15.6 x10^3/uL (4.0-11.0) Red Blood Count 3.18 x10^6/uL (3.50-5.40) Hemoglobin 9.4 g/dL (12.0-15.5) Hematocrit 29.3 % (36.0-47.0) Mean Corpuscular Volume 92 fL (79-100) Mean Corpuscular Hemoglobin 30 pg (25-35) Mean Corpuscular Hemoglobin Concent 32 g/dL (31-37) Red Cell Distribution Width 15.4 % (11.5-14.5) Platelet Count 578 x10^3/uL (140-400) Neutrophils (%) (Auto) 84 % (31-73) Lymphocytes (%) (Auto) 8 % (24-48) Monocytes (%) (Auto) 7 % (0-9) Eosinophils (%) (Auto) 1 % (0-3) Basophils (%) (Auto) 0 % (0-3) Neutrophils # (Auto) 13.2 x10^3uL (1.8-7.7) Lymphocytes # (Auto) 1.2 x10^3/uL (1.0-4.8) Monocytes # (Auto) 1.1 x10^3/uL (0.0-1.1) Eosinophils # (Auto) 0.1 x10^3/uL (0.0-0.7) Basophils # (Auto) 0.0 x10^3/uL (0.0-0.2) Sodium Level 123 mmol/L (136-145) Potassium Level 4.4 mmol/L (3.5-5.1) Chloride Level 88 mmol/L (98-107) Carbon Dioxide Level 25 mmol/L (21-32) Anion Gap 10 (6-14) Blood Urea Nitrogen 37 mg/dL (7-20) Creatinine 1.8 mg/dL (0.6-1.0) Estimated GFR (Cockcroft-Gault) 28.2 Glucose Level 103 mg/dL (70-99) Calcium Level 8.5 mg/dL (8.5-10.1) Troponin I Quantitative < 0.017 ng/mL (0.000-0.055) Glucose (Fingerstick) 112 mg/dL (70-99) 102 mg/dL (70-99) Objective Assessment Cellulitis of LE, bilaterally Yeast -skin folds, pannus & groin areas Leukocytosis, h/o splenectomy Hypotension, off Levophed gtt RADHA w/ hyponatremia PCN & amoxicillin allergy causing trouble breathing Chronic Correa d/t urinary retention - h/o E. coli UTI R amp, quinolones, PIP, tetra, Bactrim & I Augmentin Back pain with left leg weakness and pain. h/o right hemilaminotomy & microdiscectomy, L4-5, 03/14/17. h/o myelodysplasia h/o splenectomy h/x genital HSV Hypothyroidism Paranoid schizophrenia DM II COPD, 3L O2 dependency Morbid obesity, BMI 55 Plan Plan of Care Patient initially on clindamycin. Dr. Justine Sood changed to Zyvox and Cefepime will add fluconazole as well f/u cultures and monitor response D/w Dr. Pandey Thank you [phone] Attending Co-Sign The patient was seen and interviewed as well as examined at the bedside. The chart was reviewed. The case was discussed. Agree with the plan of care. LIZZ MYERS APRN May 27, 2017 10:08 LINDSAY SOOD MD May 27, 2017 13:23
[2017-05-27] MEDS: FLUCONAZOLE 200MG/100ML PREMIX 100 ML IV SCH (10:30)
[2017-05-27] MEDS: PANTOPRAZOLE 40 MG TABLET.DR. PO SCH (10:30)
[2017-05-27] MEDS: ACYCLOVIR 200 MG CAPSULE. PO SCH ×3 (10:32→20:56)
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
[2017-05-27] MEDS: HALOPERIDOL 5 MG TABLET. PO SCH (15:59)
[2017-05-27] MEDS: EXENATIDE 10 MCG/0.04 ML 2.4ML PEN.INJCTR. SQ SCH (16:00)
[2017-05-27] MEDS: LACTOBACILLUS RHAMNOSUS GG 1 CAPSULE. PO SCH (20:56)
[2017-05-27] MEDS: TAMSULOSIN 0.4 MG CAP.ER.24H. PO SCH (20:56)
[2017-05-27] MEDS: ATORVASTATIN CALCIUM 40 MG TABLET. PO SCH (20:56)
[2017-05-27] MEDS: oxyCODONE/APAP 7.5/325 1 TAB TABLET PO PRN (20:57)
[2017-05-28] MEDS: HYDROcodone/APAP 5/325MG 1 TAB TABLET PO PRN ×4 (01:42→21:25)
[2017-05-28 03:49] VITALS: BP 84/46
--- NOTE | 2017-05-28 03:49 | CONS ---
DATE OF CONSULTATION: 05/26/2017 DICTATED BY: Steven Hobson APRN. REFERRING PHYSICIAN: Dr. Jose. REASON FOR CONSULTATION: Cellulitis. HISTORY OF PRESENT ILLNESS: This patient is a 66-year-old female who was brought to the ER for back pain with left leg weakness. Over the past few days, the patient states it was difficult for her to walk due to the pain. She has history of severe lumbar radiculopathy from herniated lumbar disk for which she underwent a right hemilaminotomy and microdiskectomy L4-L5 on 03/14/2017. She spent time in a care home facility and eventually went home. The patient states she has developed a redness along the lower abdomen and legs with increased swelling and heaviness. She reports body aches without fevers, chills or sweats. She has a history of urinary retention, requiring a Correa catheter since March. At one point, she was evaluated by Urology at [facility] with instructions to maintain a catheter. She has been hospitalized at least 3 times within the last 6 months along with treatment of a urinary tract infection with E. coli resistant to ampicillin, quinolones, piperacillin, tetracycline, Bactrim and intermittent to amoxicillin/clavulanic acid. She does not recall how often the Correa catheter is changed but does say it was changed on the day of admission. She is followed by home health. The patient has a history of chronic obstructive pulmonary disease, oxygen dependency normally on 3 liters of oxygen at home. She denies shortness of air, cough, wheezing or chest discomfort. She is having loose stools with some cramps. Denies nausea or vomiting. Her appetite is "too good." The patient was initially hypotensive, requiring IV fluids and Levophed drip. Blood pressure and now stabilized and off pressor support. PAST MEDICAL HISTORY: 1. Urinary tract infection with E. coli resistant to ampicillin, quinolones, piperacillin, tetracycline, Bactrim and intermittent amoxicillin/clavulanic acid. 2. Diabetes mellitus type 2. 3. Morbid obesity. 4. Hypertension. 5. Paranoid schizophrenia. 6. Asthma. 7. Hypothyroidism. 8. Aortic stenosis. 9. Gastroesophageal reflux disease. 10. Chronic obstructive pulmonary disease, normally on 3 liters O2 nasal cannula at home. 11. Chronic kidney disease. 12. Diastolic congestive heart failure. 13. Myelodysplasia. 14. History of genital herpes. PAST SURGICAL HISTORY: Splenectomy, cholecystectomy, hernia repair, tubal ligation and partial liver lobectomy. FAMILY HISTORY: Positive for heart disease. SOCIAL HISTORY: The patient is and lives at home. She has one son. Former smoker. ALLERGIES: PENICILLIN AND AMOXICILLIN causing trouble breathing as well as ERYTHROMYCIN and CELESTE. MEDICATIONS: Clindamycin in the ER and acyclovir. Other medications are available and have been reviewed on the MAR. REVIEW OF SYSTEMS: Per HPI, otherwise all other review of systems are negative. PHYSICAL EXAMINATION: GENERAL: Overweight female lying in bed, in no apparent distress. VITAL SIGNS: Temperature is 96.5, blood pressure 116/57, heart rate 88, respiratory rate 20, pulse oximetry is 97% on 3 liters nasal cannula. Weight 341 pounds. BMI 55. HEENT: Pupils equally round. Normal conjunctivae. Oral mucosa is pink and dry. NECK: Supple. LUNGS: Clear to auscultation. HEART: Distant heart tones. ABDOMEN: Obese. Bowel sounds active. Soft and nontender. Yeast with excoriation under the pannus and groin areas. GENITOURINARY: Correa in place. EXTREMITIES: Edema, lower extremities bilaterally with mild erythema and superficial wounds. Peripheral IV looks okay. SKIN: Without rash. NEUROLOGICAL: Awake, responds appropriately. LABORATORY DATA: Today's WBC 15.6 from 19.4 on admission; hemoglobin 9.4 and platelet count 578,000. Sodium 123, potassium 4.4, creatinine 1.8 from 2.2 on admission, BUN 37 and glucose 103. Lactic acid 1.6 from 2.3 on admission. Troponin less than 0.017, total bilirubin 0.7, AST 26 and ALT 15. Creatinine kinase 139. Lipase 51. TSH 19.266. Urinalysis shows wbc's 5-10, moderate leukocyte esterase and negative nitrite with moderate epithelial cells. Urine blood cultures and MRSA screen pending. Chest x-ray shows clear lungs with no definite infiltrates. IMPRESSION: 1. Cellulitis of lower extremities bilaterally. 2. Yeast. 3. Leukocytosis. 4. Hypotension, improved. 5. Acute kidney injury with hyponatremia. 6. Penicillin and amoxicillin allergy causing trouble breathing. 7. Chronic Correa due to urinary retention. 8. Back pain with left leg weakness and pain. 9. History of myelodysplasia. 10. History of splenectomy. 11. History of genital herpes simplex. 12. Hypothyroidism. 13. Paranoid schizophrenia. 14. Diabetes mellitus type 2. 15. Chronic obstructive pulmonary disease. 16. Morbid obesity with a body mass index 55. PLAN: The patient was initially on clindamycin. There has since been changed to Zyvox and cefepime. We will also add fluconazole. Await cultures and monitor response. Local wound care. Discussed with Dr. Pandey. Thank you, Dr. Jose for asking us to participate in this patient's care. Should further questions or concerns, please call. LINDSAY LARA MD DR: MANISH/mahesh JOB#: [id number] / [id number]
[2017-05-28 04:10] LABS: BASO # 0.1 x10^3/uL (0.0-0.2); BASO % 1 % (0-3); EOS % 1 % (0-3); HEMATOCRIT 25.4 % (36.0-47.0); HEMOGLOBIN 8.2 g/dL (12.0-15.5); LYMPH # 1.7 x10^3/uL (1.0-4.8); LYMPH % 14 % (24-48); MEAN CORPUSCULAR HEMOGLOBIN 29 pg (25-35); MEAN CORPUSCULAR HGB CONC 32 g/dL (31-37); MEAN CORPUSCULAR VOLUME 91 fL (79-100); MONO % 11 % (0-9); NEUT % 73 % (31-73); PLATELET COUNT 508 x10^3/uL (140-400); RED CELL DISTRIBUTION WIDTH 15.4 % (11.5-14.5); WHITE BLOOD COUNT 12.2 x10^3/uL (4.0-11.0)
[2017-05-28 04:26] LABS: CALCIUM 7.9 mg/dL (8.5-10.1); CREATININE 1.4 mg/dL (0.6-1.0); GFR 37.6; POTASSIUM 4.7 mmol/L (3.5-5.1)
[2017-05-28] MEDS: oxyCODONE/APAP 7.5/325 1 TAB TABLET PO PRN ×4 (04:31→23:31)
[2017-05-28] MEDS: LEVOTHYROXINE 100 MCG TABLET PO SCH (06:21)
[2017-05-28 07:55] VITALS: BP 104/54
[2017-05-28] MEDS: PIOGLITAZONE 15 MG TABLET. PO SCH (08:48)
[2017-05-28] MEDS: MELOXICAM 7.5 MG TABLET PO SCH (08:48)
[2017-05-28] MEDS: VITAMIN E 200 UNIT CAPSULE. PO SCH (08:48)
[2017-05-28] MEDS: ACYCLOVIR 200 MG CAPSULE. PO SCH ×3 (08:48→21:21)
[2017-05-28] MEDS: LACTOBACILLUS RHAMNOSUS GG 1 CAPSULE. PO SCH ×2 (08:48→21:22)
[2017-05-28] MEDS: PANTOPRAZOLE 40 MG TABLET.DR. PO SCH (08:48)
[2017-05-28] MEDS: FERROUS SULFATE 325 MG TABLET. PO SCH (08:48)
[2017-05-28] MEDS: CHOLECALCIFEROL (VITAMIN D3) 1,000 UNIT TABLET PO SCH (08:49)
[2017-05-28] MEDS: METOPROLOL TART IMMED RELEASE 25 MG TABLET. PO SCH ×2 (08:50→21:25)
[2017-05-28] MEDS: LISINOPRIL 10 MG TABLET PO SCH (08:51)
[2017-05-28] MEDS: EXENATIDE 10 MCG/0.04 ML 2.4ML PEN.INJCTR. SQ SCH ×2 (08:55→17:28)
--- NOTE | 2017-05-28 08:57 | PDOC ---
PROGRESS NOTES Subjective Transferred from ICU without issues, still having back and hip pain and needing assist for just about everything. MRI of L-spine was cancelled. IV site causing pain and causing her right hand to swell. Correa causing discomfort. She feels her bowels are going to move soon. Skin is itching and she has excoriations and is still red and swollen. Wound care consulted. WBC improving , renal function improving, sodium still low but improving, still feeling paranoid Objective Afebrile BP: [] General: [] Heart: [] Lungs: [] Abd: [] Ext: [] WBC: [] Hgb: [] K+: [] Creat: [] Vital Signs Vital Signs Date Time Temp Pulse Resp B/P (MAP) Pulse Ox O2 Delivery O2 Flow Rate FiO2 05/28/17 07:55 Nasal Cannula 2.0 05/28/17 07:55 93 05/28/17 07:55 97.4 80 22 104/54 (71) 97.4 I & O Intake and Output 05/28/17 07:00 Intake Total 1539 ml Output Total 1285 ml Balance 254 ml Intake Oral 1270 ml IV Total 269 ml Output Urine Total 1285 ml Assessment and Plan 1. Sepsis with increased leukocytosis, hypotension and abnormal urinalysis, most likely urinary source, improving 2. Hyponatremia, improving. 3. Acute on chronic back pain with a recent lumbar laminectomy. 4. New onset atrial fibrillation, rate controlled. 5. Hypothyroidism, undertreated - dose increased. 6. Type 2 diabetes, controlled. 7. Schizophrenia, paranoid type. 8. Acute renal failure from dehydration and likely tubular necrosis. 9. Sacral decubitus ulcer present on admission. 10. cellulitis of lower extremities, improving with antibiotics, she needs a PICC line 11. myelodysplasia, asplenic Problems: Prosper MEEHAN MD May 28, 2017 08:57
[2017-05-28] MEDS: LIDOCAINE (700MG/PATCH) PATCH. TD PRN (09:00)
[2017-05-28] MEDS: FLUCONAZOLE 200MG/100ML PREMIX 100 ML IV SCH (09:06)
[2017-05-28] MEDS: CEFEPIME HCL IV Push 1 GM VIAL. IVP SCH ×2 (09:06→19:39)
[2017-05-28] MEDS: NYSTATIN 100,000 UNIT/GM TOPICAL CREAM 15GM TUBE. TP SCH ×2 (09:22→21:00)
[2017-05-28] MEDS: rOPINIRole 0.25 MG TABLET. PO SCH ×3 (09:22→21:22)
--- NOTE | 2017-05-28 09:29 | PDOC ---
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 x 3, no focal neurologic deficit SKIN: No rash IV: ok Labs Lab Laboratory Tests Test 05/27/17 15:57 05/27/17 20:43 05/28/17 03:35 05/28/17 07:28 Glucose (Fingerstick) 151 mg/dL (70-99) 167 mg/dL (70-99) 96 mg/dL (70-99) White Blood Count 12.2 x10^3/uL (4.0-11.0) Red Blood Count 2.80 x10^6/uL (3.50-5.40) Hemoglobin 8.2 g/dL (12.0-15.5) Hematocrit 25.4 % (36.0-47.0) Mean Corpuscular Volume 91 fL (79-100) Mean Corpuscular Hemoglobin 29 pg (25-35) Mean Corpuscular Hemoglobin Concent 32 g/dL (31-37) Red Cell Distribution Width 15.4 % (11.5-14.5) Platelet Count 508 x10^3/uL (140-400) Neutrophils (%) (Auto) 73 % (31-73) Lymphocytes (%) (Auto) 14 % (24-48) Monocytes (%) (Auto) 11 % (0-9) Eosinophils (%) (Auto) 1 % (0-3) Basophils (%) (Auto) 1 % (0-3) Neutrophils # (Auto) 9.0 x10^3uL (1.8-7.7) Lymphocytes # (Auto) 1.7 x10^3/uL (1.0-4.8) Monocytes # (Auto) 1.3 x10^3/uL (0.0-1.1) Eosinophils # (Auto) 0.2 x10^3/uL (0.0-0.7) Basophils # (Auto) 0.1 x10^3/uL (0.0-0.2) Sodium Level 124 mmol/L (136-145) Potassium Level 4.7 mmol/L (3.5-5.1) Chloride Level 91 mmol/L (98-107) Carbon Dioxide Level 25 mmol/L (21-32) Anion Gap 8 (6-14) Blood Urea Nitrogen 32 mg/dL (7-20) Creatinine 1.4 mg/dL (0.6-1.0) Estimated GFR (Cockcroft-Gault) 37.6 Glucose Level 98 mg/dL (70-99) Calcium Level 7.9 mg/dL (8.5-10.1) Micro BC and urine culture neg Objective Assessment Cellulitis of LE, bilaterally Yeast -skin folds, pannus & groin areas Leukocytosis, h/o splenectomy Hypotension, off Levophed gtt RADHA w/ hyponatremia PCN & amoxicillin allergy causing trouble breathing Chronic Correa d/t urinary retention - h/o E. coli UTI R amp, quinolones, PIP, tetra, Bactrim & I Augmentin Back pain with left leg weakness and pain. h/o right hemilaminotomy & microdiscectomy, L4-5, 03/14/17. 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
[2017-05-28] MEDS ORDERED: LIDOCAINE/PRILOCAINE TOPICAL CREAM 5GM TUBE. TP ONE (09:45)
[2017-05-28] MEDS ORDERED: 0.9 % SODIUM CHLORIDE 10 ML DISP.SYRIN. IV PRN (09:45)
[2017-05-28] MEDS ORDERED: LIDOCAINE 1% PF 2 ML VIAL. ID PRN (09:45)
[2017-05-28] MEDS: hydrOXYzine PAMOATE 25 MG CAPSULE PO PRN (10:04)
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
[2017-05-28 12:00] VITALS: BP 123/59
--- NOTE | 2017-05-28 12:14 | PDOC2 ---
KEYSHA LAWRENCE LAB SUPPORT TECHNICIAN 05/28/17 1214: CARDIAC CONSULT DATE OF CONSULT Date of Consult DATE: 05/28/17 TIME: 12:04 REASON FOR CONSULT Reason for Consult: new onset atrial fibrillation HISTORY OF PRESENT ILLNESS HISTORY OF PRESENT ILLNESS Ms Alegria is a 66 year old female recently admitted for back surgery, requiring readmission and rehab postoperatively who presented to the ED after a fall at home and bilateral leg pain and difficulty walking. She was found to have a UTI, hypotension which was initially managed in the ICU and required pressors. She developed new onset atrial fibrillation and consult was called. She denies any palpitations, chest discomfort and reports her breathing is baseline. She does report chronic lower extremity edema. She reports multiple falls over the last month. PAST MEDICAL HISTORY Past Medical History Cardiovascular: HTN, Hyperlipidemia Pulmonary: Asthma, COPD GI: GERD, reflus esophagitis Musculoskeletal: Osteoarthritis and spinal stenosis Endocrine: Diabetes, Hypothyroidism Psych: paranoid schizophrenia PAST SURGICAL HISTORY Past Surgical History 1. Splenectomy. 2. Cholecystectomy. 3. Hernia repair. 4. Tubal ligation. 5. Partial lobectomy of liver. 6. Breast augmentation. 7. lumbar laminectomy 03/19/2017. FAMILY HISTORY Family History heart disease, Hypertension SOCIAL HISTORY Social History tobacco: prior smoker, quit >5 yrs ago ALCOHOL: none Drugs: None Lives: with Family Domestic Violence: Neg CURRENT MEDICATIONS CURRENT MEDICATIONS Current Medications Medications (Trade) Dose Ordered Sig/Tarah Route PRN Reason Start Time Stop Time Status Last Admin Dose Admin Haloperidol (Haldol) 5 mg DAILY16 PO 05/27/17 16:00 05/27/17 15:59 Levothyroxine Sodium (Synthroid) 125 mcg DAILY07 PO 05/28/17 07:00 05/28/17 06:21 Tamsulosin HCl (Flomax) 0.4 mg QHS PO 05/27/17 21:00 05/27/17 20:56 Atorvastatin Calcium (Lipitor) 40 mg QHS PO 05/27/17 21:00 05/27/17 20:56 Exenatide (Byetta) 10 mcg BIDBFRMEAL SQ 05/27/17 16:30 05/28/17 08:55 Lactobacillus Rhamnosus (Culturelle) 1 cap BID PO 05/27/17 21:00 05/28/17 08:48 Hydroxyzine Pamoate (Vistaril) 25 mg PRN Q6HRS PRN PO ITCHING 05/28/17 08:45 05/28/17 10:04 ALLERGIES ALLERGIES: Coded Allergies: erythromycin base (Verified Allergy, Intermediate, Hives, 03/10/17) Penicillins (Verified Allergy, Mild, TIRED, 11/19/13) ROS Review of System as per HPI PHYSICAL EXAM General: Alert, Oriented X3, Cooperative, No acute distress HEENT: Atraumatic, EOMI Lungs: Other (decreased without crackles, rhonchi or wheezing) Heart: Other (irregular rate and rhythm without gallops, clicks or rubs) Abdomen: Normal bowel sounds, Soft Extremities: Other (++chronic edema bilateral lower extremities) Neuro: Normal speech Psych/Mental Status: Mental status NL, Mood NL VITALS VITALS Vital Signs Date Time Temp Pulse Resp B/P (MAP) Pulse Ox O2 Delivery O2 Flow Rate FiO2 05/28/17 10:05 94 05/28/17 08:51 80 104/54 05/28/17 07:55 Nasal Cannula 2.0 05/28/17 07:55 97.4 22 97.4 LABS Lab: Laboratory Tests Test 05/27/17 15:57 05/27/17 20:43 05/28/17 03:35 05/28/17 07:28 Glucose (Fingerstick) 151 mg/dL (70-99) 167 mg/dL (70-99) 96 mg/dL (70-99) White Blood Count 12.2 x10^3/uL (4.0-11.0) Red Blood Count 2.80 x10^6/uL (3.50-5.40) Hemoglobin 8.2 g/dL (12.0-15.5) Hematocrit 25.4 % (36.0-47.0) Mean Corpuscular Volume 91 fL (79-100) Mean Corpuscular Hemoglobin 29 pg (25-35) Mean Corpuscular Hemoglobin Concent 32 g/dL (31-37) Red Cell Distribution Width 15.4 % (11.5-14.5) Platelet Count 508 x10^3/uL (140-400) Neutrophils (%) (Auto) 73 % (31-73) Lymphocytes (%) (Auto) 14 % (24-48) Monocytes (%) (Auto) 11 % (0-9) Eosinophils (%) (Auto) 1 % (0-3) Basophils (%) (Auto) 1 % (0-3) Neutrophils # (Auto) 9.0 x10^3uL (1.8-7.7) Lymphocytes # (Auto) 1.7 x10^3/uL (1.0-4.8) Monocytes # (Auto) 1.3 x10^3/uL (0.0-1.1) Eosinophils # (Auto) 0.2 x10^3/uL (0.0-0.7) Basophils # (Auto) 0.1 x10^3/uL (0.0-0.2) Sodium Level 124 mmol/L (136-145) Potassium Level 4.7 mmol/L (3.5-5.1) Chloride Level 91 mmol/L (98-107) Carbon Dioxide Level 25 mmol/L (21-32) Anion Gap 8 (6-14) Blood Urea Nitrogen 32 mg/dL (7-20) Creatinine 1.4 mg/dL (0.6-1.0) Estimated GFR (Cockcroft-Gault) 37.6 Glucose Level 98 mg/dL (70-99) Calcium Level 7.9 mg/dL (8.5-10.1) IMAGES IMAGES CXR - Impression: 1. No definite infiltrates. EKG EKG afib, CVR, no acute ischemic changes ECHOCARDIOGRAM ECHOCARDIOGRAM 03/11/17 Left ventricle systolic function is normal. The Ejection Fraction is 65-70%. There is normal LV segmental wall motion. Transmitral Doppler flow pattern is Grade I-abnormal relaxation pattern. Trace mitral regurgitation. Mild to moderate tricuspid regurgitation. The PA pressure was estimated at 57 mmHg. There is no evidence of significant pericardial effusion. ASSESSMENT/PLAN ASSESSMENT/PLAN 1. atrial fibrillation, new onset - rate controlled on oral metoprolol. [id number] = 4 which warrants anticoagulation for stroke prophylaxis. She reports frequent falls in the last several months so at this time would continue with aspirin only and continued rate control. Normal LV function by echo in February. Outpatient MCT for afib burden when acute illness resolved. 2. hypertension - currently controlled. She did require pressors in the ICU, secondary to sepsis 3. sepsis - ID following 4. PHTN / Copd oxygen dependant - per ID 5. RADHA with hypokalemia - K is now WNL, Cr improving. per IM Problems: PASNOORI,SOBEIDA R MD 05/28/17 2003: CARDIAC CONSULT ALLERGIES ALLERGIES: Coded Allergies: erythromycin base (Verified Allergy, Intermediate, Hives, 03/10/17) Penicillins (Verified Allergy, Mild, TIRED, 11/19/13) ASSESSMENT/PLAN ASSESSMENT/PLAN Patient seen and examined. Agree with SUBJECT SCIENTIFIC RESEARCH's assessment and plan. 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
[2017-05-28 14:48] VITALS: BP 120/83
--- NOTE | 2017-05-28 16:00 | RAD ---
Indication: Bilateral knee pain. Technique: 2 views of each knee are submitted for review. Findings: There is tricompartmental osteoarthritis bilaterally which is greatest in the medial compartment. There is medial compartmental narrowing. Findings are moderate to severe bilaterally. An acute fracture or dislocation is not identified. There is no definite joint effusion. Impression: Moderate to severe tricompartmental osteoarthritis bilaterally. Findings are greatest in the medial compartment.
--- NOTE | 2017-05-28 16:10 | RAD ---
Indication: Bilateral hip pain. Technique: 2 views of each hip and an AP view the pelvis are submitted for review. No comparison is available. Findings: There is mild osteoarthritis in each hip. There is no fracture or dislocation. Bony pelvis appears intact. Calcified phleboliths are noted. Impression: Mild osteoarthritis in each hip.
--- NOTE | 2017-05-28 16:12 | RAD ---
Indication: Severe low back pain. Technique: 3 views of the lumbosacral spine are submitted for review. No comparison is available. Findings: There is compression deformity involving the superior endplate of L3, collapse less than 25% and no definite retropulsion. The acuity of this fracture is not clear. Otherwise, vertebral body height is maintained. There is probably slight retrolisthesis at L5-S1. There is facet hypertrophy in the lower lumbar spine. There is atheromatous disease in the abdominal aorta. Impression: L3 superior endplate compression fracture, the acuity of which is not clear. Consider MRI.
[2017-05-28] MEDS ORDERED: GADOBUTROL 7.5 MMOL/7.5 ML VIAL IV ONE ×2 (16:45)
[2017-05-28] MEDS: HALOPERIDOL 5 MG TABLET. PO SCH (17:25)
[2017-05-28 20:00] VITALS: BP 104/44
[2017-05-28] MEDS: BUDESONIDE 0.5 MG/2 ML NEBU. NEB SCH (20:00)
[2017-05-28] MEDS: TAMSULOSIN 0.4 MG CAP.ER.24H. PO SCH (21:21)
[2017-05-28] MEDS: ATORVASTATIN CALCIUM 40 MG TABLET. PO SCH (21:21)
[2017-05-29] VITALS (7 sets, daily range): BP systolic 93–125; BP diastolic 41–67
[2017-05-29] MEDS: HYDROcodone/APAP 5/325MG 1 TAB TABLET PO PRN ×4 (01:34→23:12)
[2017-05-29] MEDS: oxyCODONE/APAP 7.5/325 1 TAB TABLET PO PRN ×2 (03:38→21:10)
[2017-05-29 04:36] LABS: BASO # 0.1 x10^3/uL (0.0-0.2); BASO % 1 % (0-3); EOS % 2 % (0-3); HEMATOCRIT 26.8 % (36.0-47.0); HEMOGLOBIN 8.7 g/dL (12.0-15.5); LYMPH # 1.6 x10^3/uL (1.0-4.8); LYMPH % 12 % (24-48); MEAN CORPUSCULAR HEMOGLOBIN 30 pg (25-35); MEAN CORPUSCULAR HGB CONC 33 g/dL (31-37); MEAN CORPUSCULAR VOLUME 91 fL (79-100); MONO % 12 % (0-9); NEUT % 73 % (31-73); PLATELET COUNT 509 x10^3/uL (140-400); RED BLOOD COUNT 2.93 x10^6/uL (3.50-5.40); RED CELL DISTRIBUTION WIDTH 15.4 % (11.5-14.5); WHITE BLOOD COUNT 12.9 x10^3/uL (4.0-11.0)
[2017-05-29 05:18] LABS: CALCIUM 8.7 mg/dL (8.5-10.1); CREATININE 1.2 mg/dL (0.6-1.0); GFR 44.9; POTASSIUM 4.6 mmol/L (3.5-5.1)
[2017-05-29] MEDS: LEVOTHYROXINE 100 MCG TABLET PO SCH (06:16)
[2017-05-29] MEDS: EXENATIDE 10 MCG/0.04 ML 2.4ML PEN.INJCTR. SQ SCH ×2 (07:30→16:30)
[2017-05-29] MEDS: CEFEPIME HCL IV Push 1 GM VIAL. IVP SCH (08:00)
--- NOTE | 2017-05-29 08:25 | PDOC ---
Infectious Disease Note Subjective Subjective pt feeling better, appears almost back to her baseline, no complaints ROS ROS GEN: Denies fevers, chills, sweats HEENT: Denies blurred vision, sore throat CV: Denies chest pain RESP: Denies shortness of air, cough GI: Denies n/v/d NEURO: Denies confusion, dizziness Vital Sign Vital Signs Vital Signs Date Time Temp Pulse Resp B/P (MAP) Pulse Ox O2 Delivery O2 Flow Rate FiO2 05/29/17 07:28 96 Nasal Cannula 2.0 05/29/17 07:00 97.5 65 20 111/64 (80) 97.5 Physical Exam PHYSICAL EXAM GENERAL: NAD, Alert HEENT: PERRL, OC/OP NECK: Supple, no JVD, no LN LUNGS: Clear HEART: S1S2, no gallop, no murmur ABD: Soft, NT, no organomegaly, no rebound EXT: 3+ edema, no cyanosis 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, oriented x 3, no focal neurologic deficit SKIN: No rash IV: ok Labs Lab Laboratory Tests Test 05/28/17 11:12 05/28/17 17:28 05/28/17 21:48 05/29/17 04:05 Glucose (Fingerstick) 131 mg/dL (70-99) 124 mg/dL (70-99) 123 mg/dL (70-99) White Blood Count 12.9 x10^3/uL (4.0-11.0) Red Blood Count 2.93 x10^6/uL (3.50-5.40) Hemoglobin 8.7 g/dL (12.0-15.5) Hematocrit 26.8 % (36.0-47.0) Mean Corpuscular Volume 91 fL (79-100) Mean Corpuscular Hemoglobin 30 pg (25-35) Mean Corpuscular Hemoglobin Concent 33 g/dL (31-37) Red Cell Distribution Width 15.4 % (11.5-14.5) Platelet Count 509 x10^3/uL (140-400) Neutrophils (%) (Auto) 73 % (31-73) Lymphocytes (%) (Auto) 12 % (24-48) Monocytes (%) (Auto) 12 % (0-9) Eosinophils (%) (Auto) 2 % (0-3) Basophils (%) (Auto) 1 % (0-3) Neutrophils # (Auto) 9.4 x10^3uL (1.8-7.7) Lymphocytes # (Auto) 1.6 x10^3/uL (1.0-4.8) Monocytes # (Auto) 1.6 x10^3/uL (0.0-1.1) Eosinophils # (Auto) 0.2 x10^3/uL (0.0-0.7) Basophils # (Auto) 0.1 x10^3/uL (0.0-0.2) Sodium Level 122 mmol/L (136-145) Potassium Level 4.6 mmol/L (3.5-5.1) Chloride Level 89 mmol/L (98-107) Carbon Dioxide Level 26 mmol/L (21-32) Anion Gap 7 (6-14) Blood Urea Nitrogen 30 mg/dL (7-20) Creatinine 1.2 mg/dL (0.6-1.0) Estimated GFR (Cockcroft-Gault) 44.9 Glucose Level 93 mg/dL (70-99) Calcium Level 8.7 mg/dL (8.5-10.1) Test 05/29/17 07:20 Glucose (Fingerstick) 75 mg/dL (70-99) Micro BC and urine culture neg Objective Assessment Cellulitis of LE, bilaterally Yeast -skin folds, pannus & groin areas Leukocytosis, h/o splenectomy Hypotension, off Levophed gtt RADHA w/ hyponatremia PCN & amoxicillin allergy causing trouble breathing Chronic Correa d/t urinary retention - h/o E. coli UTI R amp, quinolones, PIP, tetra, Bactrim & I Augmentin Back pain with left leg weakness and pain. h/o right hemilaminotomy & microdiscectomy, L4-5, 03/14/17. 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
--- NOTE | 2017-05-29 08:49 | RAD ---
EXAMINATION: Magnetic resonance imaging (MRI) of the lumbar spine without with contrast HISTORY: New radicular back pain after fall. 3 recent falls. History of spinal surgery. TECHNIQUE: Multiplanar multi-weighted MRI of the lumbar spine was performed without intravenous contrast using the standard lumbar spine protocol. Contrast information: None administered. COMPARISON: MRI lumbar spine March 09, 2017 FINDINGS: The alignment of the lumbar spine is normal. There is an L3 superior endplate compression fracture with very minimal retropulsion of the superior endplate by 1-2 mm. There is edema along the superior endplate. There is no epidural hematoma. There is less than 25 percent loss of height. There is a chronic superior endplate compression deformity involving T11. Postoperative changes are identified right L4-L5 hemilaminectomy and partial facetectomy with suspected microdiscectomy. There is a postoperative fluid collection posterior subcutaneous soft tissues measuring approximately 5.8 x 4.4 cm in axial dimensions. The conus medullaris terminates at the level of L1-L2. The distal spinal cord signal intensity is normal. There is disc desiccation at L3-L4, L4-L5 and L5-S1. Stable appearing simple renal cysts are present within the kidneys bilaterally. The aorta is normal. L2-L3: There is minimal circumferential disc bulge. There is no facet arthropathy. There is no neuroforaminal stenosis. There is no spinal canal stenosis. L3-L4: There is mild circumferential disc bulge. There is mild facet arthropathy. There is no neuroforaminal stenosis. There is no spinal canal stenosis. L4-L5: There is mild circumferential disc bulge. There is moderate facet arthropathy with postsurgical changes on the right. There is moderate left neuroforaminal stenosis. There is no spinal canal stenosis. L5-S1: There is mild circumferential disc bulge. There is moderate facet arthropathy. There is moderate left and mild right neuroforaminal stenosis. There is no spinal canal stenosis. IMPRESSION: 1. New acute superior endplate compression fracture involving L3 with less than 25 percent loss of height. There is minimal retropulsion. No evidence for posterior ligamentous injury. 2. Chronic appearing superior end plate compression deformity involving T11 with approximately 25 percent loss of height. 3. Postoperative changes from suspected right hemilaminectomy and partial facetectomy at L4-L5. Recommend correlation with operative report to evaluate for possible microdiscectomy. There is circumferential disc bulge without focal herniation. Simple postoperative fluid collection is noted in the right subcutaneous soft tissues. Electronically signed by: Krystle Siddiqi MD (05/29/2017 8:46 AM) [facility]
[2017-05-29] MEDS: MELOXICAM 7.5 MG TABLET PO SCH (09:30)
[2017-05-29] MEDS: VITAMIN E 200 UNIT CAPSULE. PO SCH (09:30)
[2017-05-29] MEDS: CHOLECALCIFEROL (VITAMIN D3) 1,000 UNIT TABLET PO SCH (09:30)
[2017-05-29] MEDS: PANTOPRAZOLE 40 MG TABLET.DR. PO SCH (09:30)
[2017-05-29] MEDS: ACYCLOVIR 200 MG CAPSULE. PO SCH ×3 (09:31→21:18)
[2017-05-29] MEDS: METOPROLOL TART IMMED RELEASE 25 MG TABLET. PO SCH ×2 (09:31→21:10)
[2017-05-29] MEDS: LISINOPRIL 10 MG TABLET PO SCH (09:31)
[2017-05-29] MEDS: LACTOBACILLUS RHAMNOSUS GG 1 CAPSULE. PO SCH ×2 (09:31→21:08)
[2017-05-29] MEDS: FLUCONAZOLE 100 MG TABLET. PO SCH (09:32)
[2017-05-29] MEDS: PIOGLITAZONE 15 MG TABLET. PO SCH (09:32)
[2017-05-29] MEDS: FERROUS SULFATE 325 MG TABLET. PO SCH (09:32)
[2017-05-29] MEDS: CEFPODOXIME PROXETIL 100 MG TABLET. PO SCH ×2 (09:32→21:08)
[2017-05-29] MEDS: rOPINIRole 0.25 MG TABLET. PO SCH ×3 (09:32→21:08)
[2017-05-29] MEDS: NYSTATIN 100,000 UNIT/GM TOPICAL CREAM 15GM TUBE. TP SCH ×2 (09:32→21:19)
--- NOTE | 2017-05-29 09:45 | PDOC ---
Provider Note Provider Note patient seen and examined c/o back pain and bilateral leg pain Lumbar MRI resolution of herniated disc at L4-5, superior endplate fracture L3 without significant retropulsion In view of her UTI and cellulitis she is at increased risk for infection with vertebroplasty Recommend conservative treatment, PT, Dr. Aguilar Full consult to follow ZOILA KINGSLEY MD May 29, 2017 09:45
--- NOTE | 2017-05-29 14:33 | PDOC ---
PROGRESS NOTES Subjective Needing 2 person assist instead of four, still having back pain and lumbar x- ray and MRI showing new L3 compression fracture but she is not a good vertebroplasty candidate due to cellulitis. Still in Afib but rate controlled and not having chest pain. Skin still itching but she is trying to not scratch , hydroxyzine is helping Objective Afebrile General: uncomfortable, alert Heart: irregularly irregular with Afib per monitor Lungs: clear anteriorly Abd: soft, obese Ext: still with bright pink skin of lower legs, 2+ edema, excoriations from scratching, pannus yeast infection dermatitis present WBC: 12.9 Hgb: stable K+: 4.6 Na+: still low at 122 Vital Signs Vital Signs Date Time Temp Pulse Resp B/P (MAP) Pulse Ox O2 Delivery O2 Flow Rate FiO2 05/29/17 11:00 97.6 86 21 125/58 (80) 98 Nasal Cannula 2.0 97.6 I & O Intake and Output 05/29/17 07:00 Intake Total 1870 ml Output Total 1425 ml Balance 445 ml Intake Oral 1470 ml IV Total 400 ml Output Urine Total 1425 ml Assessment and Plan 1. Sepsis with increased leukocytosis, hypotension and abnormal urinalysis, urine culture negative so likely from skin source, improving, now on po antibiotics and po yeast meds 2. Hyponatremia, unchanged at 122, 24 hr urine sodium in progress. 3. Acute ( new L3 compression fracture) on chronic back pain with a recent L4- 5 lumbar laminectomy. 4. New onset atrial fibrillation, rate controlled. 5. Hypothyroidism, undertreated - dose increased. 6. Type 2 diabetes, controlled. 7. Schizophrenia, paranoid type. 8. Acute renal failure from dehydration and likely tubular necrosis. 9. Sacral decubitus ulcer present on admission. 10. cellulitis of lower extremities, improving with antibiotics 11. myelodysplasia, asplenic Problems: Prosper MEEHAN MD May 29, 2017 14:33
[2017-05-29] MEDS: HALOPERIDOL 5 MG TABLET. PO SCH (15:42)
[2017-05-29] MEDS: IV NORMAL SALINE 1000ML BAG 1,000 ML IV SCH (15:44)
--- NOTE | 2017-05-29 17:27 | PDOC ---
PROGRESS NOTES Subjective Subjective She had no new complaints. Objective Objective Vital Signs Date Time Temp Pulse Resp B/P (MAP) Pulse Ox O2 Delivery O2 Flow Rate FiO2 05/29/17 17:07 97 Nasal Cannula 2.0 05/29/17 15:00 97.6 76 20 118/67 (84) 97.6 Intake and Output 05/29/17 07:00 Intake Total 1870 ml Output Total 1425 ml Balance 445 ml Intake Oral 1470 ml IV Total 400 ml Output Urine Total 1425 ml Physical Exam Physical Exam Mri scan revealed new compression deformity of L3 and multilevel DDD and DJD and she had severe narrowing of medial knee joint lines of her knees as for x- ray.She refused to get up with physical therapy today. Assessment Assessment Problems Medical Problems: (1) Hypotension Status: Acute Plan Plan of Care To ask IR to see her for consideration of L3 kyphoplasty.To encourage her to work with physical therapy. Comment Review of Relevant I have reviewed the following items hitesh (where applicable) has been applied. Labs Laboratory Tests Test 05/27/17 20:43 05/28/17 03:35 05/28/17 07:28 05/28/17 11:12 Glucose (Fingerstick) 167 mg/dL (70-99) 96 mg/dL (70-99) 131 mg/dL (70-99) White Blood Count 12.2 x10^3/uL (4.0-11.0) Red Blood Count 2.80 x10^6/uL (3.50-5.40) Hemoglobin 8.2 g/dL (12.0-15.5) Hematocrit 25.4 % (36.0-47.0) Mean Corpuscular Volume 91 fL (79-100) Mean Corpuscular Hemoglobin 29 pg (25-35) Mean Corpuscular Hemoglobin Concent 32 g/dL (31-37) Red Cell Distribution Width 15.4 % (11.5-14.5) Platelet Count 508 x10^3/uL (140-400) Neutrophils (%) (Auto) 73 % (31-73) Lymphocytes (%) (Auto) 14 % (24-48) Monocytes (%) (Auto) 11 % (0-9) Eosinophils (%) (Auto) 1 % (0-3) Basophils (%) (Auto) 1 % (0-3) Neutrophils # (Auto) 9.0 x10^3uL (1.8-7.7) Lymphocytes # (Auto) 1.7 x10^3/uL (1.0-4.8) Monocytes # (Auto) 1.3 x10^3/uL (0.0-1.1) Eosinophils # (Auto) 0.2 x10^3/uL (0.0-0.7) Basophils # (Auto) 0.1 x10^3/uL (0.0-0.2) Sodium Level 124 mmol/L (136-145) Potassium Level 4.7 mmol/L (3.5-5.1) Chloride Level 91 mmol/L (98-107) Carbon Dioxide Level 25 mmol/L (21-32) Anion Gap 8 (6-14) Blood Urea Nitrogen 32 mg/dL (7-20) Creatinine 1.4 mg/dL (0.6-1.0) Estimated GFR (Cockcroft-Gault) 37.6 Glucose Level 98 mg/dL (70-99) Calcium Level 7.9 mg/dL (8.5-10.1) Test 05/28/17 17:28 05/28/17 21:48 05/29/17 04:05 05/29/17 07:20 Glucose (Fingerstick) 124 mg/dL (70-99) 123 mg/dL (70-99) 75 mg/dL (70-99) White Blood Count 12.9 x10^3/uL (4.0-11.0) Red Blood Count 2.93 x10^6/uL (3.50-5.40) Hemoglobin 8.7 g/dL (12.0-15.5) Hematocrit 26.8 % (36.0-47.0) Mean Corpuscular Volume 91 fL (79-100) Mean Corpuscular Hemoglobin 30 pg (25-35) Mean Corpuscular Hemoglobin Concent 33 g/dL (31-37) Red Cell Distribution Width 15.4 % (11.5-14.5) Platelet Count 509 x10^3/uL (140-400) Neutrophils (%) (Auto) 73 % (31-73) Lymphocytes (%) (Auto) 12 % (24-48) Monocytes (%) (Auto) 12 % (0-9) Eosinophils (%) (Auto) 2 % (0-3) Basophils (%) (Auto) 1 % (0-3) Neutrophils # (Auto) 9.4 x10^3uL (1.8-7.7) Lymphocytes # (Auto) 1.6 x10^3/uL (1.0-4.8) Monocytes # (Auto) 1.6 x10^3/uL (0.0-1.1) Eosinophils # (Auto) 0.2 x10^3/uL (0.0-0.7) Basophils # (Auto) 0.1 x10^3/uL (0.0-0.2) Sodium Level 122 mmol/L (136-145) Potassium Level 4.6 mmol/L (3.5-5.1) Chloride Level 89 mmol/L (98-107) Carbon Dioxide Level 26 mmol/L (21-32) Anion Gap 7 (6-14) Blood Urea Nitrogen 30 mg/dL (7-20) Creatinine 1.2 mg/dL (0.6-1.0) Estimated GFR (Cockcroft-Gault) 44.9 Glucose Level 93 mg/dL (70-99) Calcium Level 8.7 mg/dL (8.5-10.1) Test 05/29/17 10:25 05/29/17 16:18 Glucose (Fingerstick) 135 mg/dL (70-99) 120 mg/dL (70-99) Laboratory Tests Test 05/28/17 17:28 05/28/17 21:48 05/29/17 04:05 05/29/17 07:20 Glucose (Fingerstick) 124 mg/dL (70-99) 123 mg/dL (70-99) 75 mg/dL (70-99) White Blood Count 12.9 x10^3/uL (4.0-11.0) Red Blood Count 2.93 x10^6/uL (3.50-5.40) Hemoglobin 8.7 g/dL (12.0-15.5) Hematocrit 26.8 % (36.0-47.0) Mean Corpuscular Volume 91 fL (79-100) Mean Corpuscular Hemoglobin 30 pg (25-35) Mean Corpuscular Hemoglobin Concent 33 g/dL (31-37) Red Cell Distribution Width 15.4 % (11.5-14.5) Platelet Count 509 x10^3/uL (140-400) Neutrophils (%) (Auto) 73 % (31-73) Lymphocytes (%) (Auto) 12 % (24-48) Monocytes (%) (Auto) 12 % (0-9) Eosinophils (%) (Auto) 2 % (0-3) Basophils (%) (Auto) 1 % (0-3) Neutrophils # (Auto) 9.4 x10^3uL (1.8-7.7) Lymphocytes # (Auto) 1.6 x10^3/uL (1.0-4.8) Monocytes # (Auto) 1.6 x10^3/uL (0.0-1.1) Eosinophils # (Auto) 0.2 x10^3/uL (0.0-0.7) Basophils # (Auto) 0.1 x10^3/uL (0.0-0.2) Sodium Level 122 mmol/L (136-145) Potassium Level 4.6 mmol/L (3.5-5.1) Chloride Level 89 mmol/L (98-107) Carbon Dioxide Level 26 mmol/L (21-32) Anion Gap 7 (6-14) Blood Urea Nitrogen 30 mg/dL (7-20) Creatinine 1.2 mg/dL (0.6-1.0) Estimated GFR (Cockcroft-Gault) 44.9 Glucose Level 93 mg/dL (70-99) Calcium Level 8.7 mg/dL (8.5-10.1) Test 05/29/17 10:25 05/29/17 16:18 Glucose (Fingerstick) 135 mg/dL (70-99) 120 mg/dL (70-99) Microbiology 05/26/17 Blood Culture - Preliminary, Resulted NO GROWTH AFTER 2 DAYS 05/26/17 Urine Culture - Final, Complete 05/26/17 Urine Culture Result 1 (ADELAIDA) - Final, Complete Medications Current Medications Fentanyl Citrate (Fentanyl 2ml Vial) 25 mcg PRN Q15MIN PRN IV PAIN GREATER THAN 3/10 Last administered on 05/26/17t 22:56; Start 05/26/17 at 12:45; Stop 05/27/17 at 12:44; Status DC Sodium Chloride 1,000 ml @ 1,000 mls/hr 1X ONCE IV Last administered on 14:40; Start 05/26/17 at 14:30; Stop 05/26/17 at 15:29; Status DC Clindamycin Phosphate 50 ml @ 100 mls/hr 1X ONCE IV Last administered on 05/26 14:46; Start 05/26/17 at 15:00; Stop 05/26/17 at 15:29; Status DC Sodium Chloride 1,000 ml @ 1,000 mls/hr 1X ONCE IV Last administered on 18:19; Start 05/26/17 at 16:00; Stop 05/26/17 at 16:59; Status DC Sodium Chloride 1,000 ml @ 1,770 mls/hr Q34M IV Last administered on 18:28; Start 05/26/17 at 17:00; Stop 05/26/17 at 18:00; Status DC Norepinephrine Bitartrate 250 ml @ 0 mls/hr CONT PRN IV SEE I/O RECORD Last administered on 05/26/17 18:19; Start 05/26/17 at 18:15; Stop 05/27/17 at 20: 35; Status DC Linezolid 300 ml @ 300 mls/hr Q12HR IV Last administered on 05/28/17 21:25; Start 05/26/17 at 21:00; Stop 05/29/17 at 08:25; Status DC Cefepime HCl 1 gm/ Dextrose 50 ml @ 100 mls/hr Q12HR IV ; Start 05/26/17 at 21: 00; Status UNV Cefepime HCl (Maxipime) 1 gm Q12H IVP Last administered on 05/28/17 19:39; Start 05/26/17 at 20:00; Stop 05/29/17 at 08:25; Status DC Ondansetron HCl (Zofran) 4 mg PRN Q8HRS PRN IV NAUSEA/VOMITING; Start 05/26/17 at 21:00; Stop 05/27/17 at 20:59; Status DC Bisacodyl (Dulcolax Tab) 10 mg PRN DAILY PRN PO CONSTIPATION; Start 05/27/17 at 08:45 Ferrous Sulfate (Feosol) 325 mg DAILYWBKFT PO Last administered on 05/29/17 09:32; Start 05/27/17 at 09:00 Haloperidol (Haldol) 5 mg DAILY16 PO Last administered on 05/29/17 15:42; Start 05/27/17 at 16:00 Acetaminophen/ Hydrocodone Bitart (Lortab 5/325) 1 tab PRN Q4HRS PRN PO PAIN Last administered on 05/29/17 15:42; Start 05/27/17 at 08:45 Levothyroxine Sodium (Synthroid) 125 mcg DAILY07 PO Last administered on 06:16; Start 05/28/17 at 07:00 Lidocaine (Lidoderm) 3 patch PRN DAILY PRN TD TOPICAL PAIN Last administered on 05/28/17 09:00; Start 05/27/17 at 08:45 Lisinopril (Prinivil) 20 mg DAILY08 PO Last administered on 05/29/17 09:31; Start 05/27/17 at 09:00 Nystatin (Mycostatin) 1 eusebio BID TP Last administered on 05/29/17 09:32; Start 05/27/17 at 09:00 Pioglitazone HCl (Actos) 15 mg DAILY PO Last administered on 05/29/17 09:32; Start 05/27/17 at 09:00 Tamsulosin HCl (Flomax) 0.4 mg QHS PO Last administered on 05/28/17 21:21; Start 05/27/17 at 21:00 Atorvastatin Calcium (Lipitor) 40 mg QHS PO Last administered on 05/28/17 21: 21; Start 05/27/17 at 21:00 Vitamin D (Vitamin D3) 500 unit DAILY PO Last administered on 05/29/17 09:30 ; Start 05/27/17 at 09:00 Exenatide (Byetta) 10 mcg BIDBFRMEAL SQ Last administered on 05/28/17 17:28; Start 05/27/17 at 16:30 Budesonide (Pulmicort) 0.5 mg RTBID NEB ; Start 05/27/17 at 09:00 Meloxicam (Mobic) 15 mg DAILY PO Last administered on 05/29/17 09:30; Start 05/27/17 at 09:00 Pantoprazole Sodium (Protonix) 40 mg DAILYAC PO Last administered on 09:30; Start 05/27/17 at 11:30 Oxycodone/ Acetaminophen (Percocet 7.5/ 325) 1 tab PRN Q4HRS PRN PO PAIN Last administered on 05/29/17 03:38; Start 05/27/17 at 08:45 Ropinirole HCl (Requip) 0.5 mg TID PO Last administered on 05/29/17 09:32; Start 05/27/17 at 09:00 Acyclovir (Zovirax) 200 mg [id number] PO Last administered on 05/29/17 09:31; Start 05/27/17 at 09:00 Vitamin E 1,000 unit DAILY PO Last administered on 05/29/17 09:30; Start 04/03 at 09:00 Metoprolol Tartrate (Lopressor) 12.5 mg BID PO Last administered on 05/29/17 09:31; Start 05/27/17 at 09:00 Fluconazole/ Sodium Chloride 100 ml @ 100 mls/hr Q24H IV Last administered on 05/28/17 09:06; Start 05/27/17 at 10:00; Stop 05/29/17 at 08:25; Status DC Lactobacillus Rhamnosus (Culturelle) 1 cap BID PO Last administered on 09:31; Start 05/27/17 at 21:00 Hydroxyzine Pamoate (Vistaril) 25 mg PRN Q6HRS PRN PO ITCHING Last administered on 05/28/17 10:04; Start 05/28/17 at 08:45 Lidocaine HCl (Xylocaine-Mpf 1% Vial) 2 ml 1X PRN PRN ID FOR PIC LINE INSERTION ; Start 05/28/17 at 09:45; Stop 05/29/17 at 09:44; Status DC Sodium Chloride (Normal Saline Flush) 20 ml 1X PRN PRN IV PER PROTOCOL; Start 05/28/17 at 09:45; Stop 05/29/17 at 09:44; Status DC Lidocaine/ Prilocaine (Emla) 1 eusebio 1X ONCE TP ; Start 05/28/17 at 09:45; Stop 05/28/17 at 09:49; Status DC Gadobutrol (Gadavist) 7 mmol 1X ONCE IV ; Start 12/11/17 at 16:45; Stop 05/28 at 16:46; Status DC Gadobutrol (Gadavist) 7 mmol 1X ONCE IV ; Start 05/28/17 at 16:45; Stop 05/28 at 16:46; Status DC Cefpodoxime Proxetil (Vantin) 200 mg BID PO Last administered on 05/29/17 09: 32; Start 05/29/17 at 09:00 Fluconazole (Diflucan) 200 mg DAILY PO Last administered on 05/29/17 09:32; Start 05/29/17 at 09:00 Sodium Chloride 1,000 ml @ 100 mls/hr Q10H IV Last administered on 05/29/17 15:44; Start 05/29/17 at 15:00 Active Scripts Active Citroma (Magnesium Citrate) 296 Ml Solution 296 Ml PO PRN 1X PRN 10 Days Synthroid (Levothyroxine Sodium) 100 Mcg Tablet 100 Mcg PO DAILY07 30 Days Lidocaine 1 Each Adh..patch 3 Patch TD PRN DAILY PRN 30 Days Nystatin 15 Gm Cream..g. 1 Eusebio TP BID 14 Days Flomax (Tamsulosin Hcl) 0.4 Mg Cap.er.24h 0.4 Mg PO QHS 30 Days Hydrocodone-Apap 5-325 (Hydrocodone Bit/Acetaminophen) 1 Each Tablet 1 Tab PO PRN Q4HRS PRN 30 Days Bisacodyl 5 Mg Tablet.dr 10 Mg PO PRN DAILY PRN 30 Days Feosol (Ferrous Sulfate) 325 Mg Tablet 325 Mg PO DAILYWBKFT 30 Days [Metoprolol Tartrate] 25 MG Tablet 12.5 Mg PO BID Reported Oxycodon-Acetaminophen 2.5-325 (Oxycodone Hcl/Acetaminophen) 1 Each Tablet 1 Each PO PRN Q6HRS PRN Proair Hfa Inhaler (Albuterol Sulfate) 8.5 Gm Hfa.aer.ad 1 Puff INH PRN Q6HRS PRN Actos (Pioglitazone Hcl) 15 Mg Tablet 15 Mg PO DAILY Trulicity (Dulaglutide) 0.75 Mg/0.5 Ml Pen.injctr 0.75 Mg SQ Requip (Ropinirole Hcl) 0.5 Mg Tablet 0.5 Mg PO BID Vitamin D3 (Cholecalciferol (Vitamin D3)) 400 Unit Tablet 400 Unit PO DAILY Brovana (Arformoterol Tartrate) 15 Mcg/2 Ml Vial.neb 15 Mcg IH Flovent 220MCG Hfa (Fluticasone Propionate) 12 Gm Aer.w.adap 12 Gm IH Vitamin E 1,000 Unit Capsule 1,000 Unit PO Haloperidol 5 Mg Tablet 5 Mg PO Lipitor (Atorvastatin Calcium) 80 Mg Tablet 80 Mg PO Valacyclovir (Valacyclovir Hcl) 1,000 Mg Tablet 1,000 Mg PO Oxybutynin Chloride 5 Mg Tablet 5 Mg PO Lisinopril 10 Mg Tablet 20 Mg PO Meloxicam 15 Mg Tablet 15 Mg PO Prilosec (Omeprazole) 10 Mg Capsule.dr 20 Mg PO Vitals/I & O Vital Sign - Last 24 Hours 05/28/17 05/28/17 05/28/17 05/28/17 17:25 19:30 19:39 20:00 Temp 97.4 97.4 Pulse 88 Resp 22 22 B/P (MAP) 104/44 (64) Pulse Ox 99 97 O2 Delivery Nasal Cannula Nasal Cannula Nasal Cannula Nasal Cannula O2 Flow Rate 2.0 2.0 2.0 2.0 05/28/17 05/28/17 05/28/17 05/29/17 21:25 21:25 23:31 00:00 Temp 97.8 97.8 Pulse 88 80 Resp 18 20 B/P (MAP) 104/44 122/59 (80) Pulse Ox 97 96 98 O2 Delivery Nasal Cannula Nasal Cannula Nasal Cannula O2 Flow Rate 2.0 2.0 2.0 05/29/17 05/29/17 05/29/17 05/29/17 01:34 02:35 03:00 03:38 Temp 98.1 98.1 Pulse 73 Resp 22 20 24 24 B/P (MAP) 116/65 (82) Pulse Ox 96 96 96 O2 Delivery Nasal Cannula Nasal Cannula Nasal Cannula O2 Flow Rate 2.0 2.0 2.0 05/29/17 05/29/17 05/29/17 05/29/17 04:40 06:16 07:00 08:00 Temp 97.5 97.5 Pulse 65 Resp 18 20 20 B/P (MAP) 111/64 (80) Pulse Ox 96 96 97 O2 Delivery Nasal Cannula Nasal Cannula Nasal Cannula Nasal Cannula O2 Flow Rate 2.0 2.0 2.0 2.0 12/12/05/29/17 05/29/17 05/29/17 09:31 09:31 11:00 15:00 Temp 97.6 97.6 97.6 97.6 Pulse 87 87 86 76 Resp 21 20 B/P (MAP) 111/64 111/64 125/58 (80) 118/67 (84) Pulse Ox 98 97 O2 Delivery Nasal Cannula Nasal Cannula O2 Flow Rate 2.0 2.0 05/29/17 05/29/17 15:42 17:07 Pulse Ox 97 O2 Delivery Nasal Cannula Nasal Cannula O2 Flow Rate 2.0 2.0 Intake and Output 05/28/17 05/28/17 05/29/17 15:00 23:00 07:00 Intake Total 580 ml 740 ml 550 ml Output Total 225 ml 550 ml 650 ml Balance 355 ml 190 ml -100 ml CASSIDY ORNELAS MD May 29, 2017 17:27
[2017-05-29 20:13] LABS: SODIUM, URINE <60 mmol/L (Not Estab.)
[2017-05-29] MEDS: ATORVASTATIN CALCIUM 40 MG TABLET. PO SCH (21:08)
[2017-05-29] MEDS: hydrOXYzine PAMOATE 25 MG CAPSULE PO PRN (21:08)
[2017-05-29] MEDS: TAMSULOSIN 0.4 MG CAP.ER.24H. PO SCH (21:09)
[2017-05-30] MEDS: IV NORMAL SALINE 1000ML BAG 1,000 ML IV SCH ×2 (01:00→09:42)
[2017-05-30 02:24] VITALS: BP 91/51
[2017-05-30 05:31] LABS: CALCIUM 8.6 mg/dL (8.5-10.1); CREATININE 1.1 mg/dL (0.6-1.0); GFR 49.7; POTASSIUM 4.8 mmol/L (3.5-5.1)
[2017-05-30 05:35] LABS: BASO # 0.1 x10^3/uL (0.0-0.2); BASO % 1 % (0-3); EOS % 2 % (0-3); HEMOGLOBIN 8.4 g/dL (12.0-15.5); LYMPH # 1.6 x10^3/uL (1.0-4.8); LYMPH % 14 % (24-48); MEAN CORPUSCULAR HEMOGLOBIN 30 pg (25-35); MEAN CORPUSCULAR HGB CONC 32 g/dL (31-37); MEAN CORPUSCULAR VOLUME 91 fL (79-100); MONO % 14 % (0-9); NEUT % 70 % (31-73); PLATELET COUNT 489 x10^3/uL (140-400); RED BLOOD COUNT 2.86 x10^6/uL (3.50-5.40); RED CELL DISTRIBUTION WIDTH 15.3 % (11.5-14.5); WHITE BLOOD COUNT 11.2 x10^3/uL (4.0-11.0)
[2017-05-30 07:00] VITALS: BP 93/52
[2017-05-30] MEDS: LEVOTHYROXINE 100 MCG TABLET PO SCH (07:10)
[2017-05-30] MEDS: oxyCODONE/APAP 7.5/325 1 TAB TABLET PO PRN ×3 (07:16→16:45)
[2017-05-30] MEDS: LISINOPRIL 10 MG TABLET PO SCH (08:00)
[2017-05-30] MEDS: PANTOPRAZOLE 40 MG TABLET.DR. PO SCH (08:31)
[2017-05-30] MEDS: rOPINIRole 0.25 MG TABLET. PO SCH ×3 (08:31→21:02)
[2017-05-30] MEDS: FERROUS SULFATE 325 MG TABLET. PO SCH (08:31)
[2017-05-30] MEDS: ACYCLOVIR 200 MG CAPSULE. PO SCH ×3 (08:31→21:02)
[2017-05-30] MEDS: PIOGLITAZONE 15 MG TABLET. PO SCH (08:31)
[2017-05-30] MEDS: MELOXICAM 7.5 MG TABLET PO SCH (08:31)
[2017-05-30] MEDS: FLUCONAZOLE 100 MG TABLET. PO SCH (08:32)
[2017-05-30] MEDS: LACTOBACILLUS RHAMNOSUS GG 1 CAPSULE. PO SCH ×2 (08:32→21:02)
[2017-05-30] MEDS: METOPROLOL TART IMMED RELEASE 25 MG TABLET. PO SCH ×3 (08:33→21:02)
[2017-05-30] MEDS: CEFPODOXIME PROXETIL 100 MG TABLET. PO SCH ×2 (08:34→21:02)
[2017-05-30] MEDS: NYSTATIN 100,000 UNIT/GM TOPICAL CREAM 15GM TUBE. TP SCH ×2 (08:48→21:08)
[2017-05-30] MEDS: EXENATIDE 10 MCG/0.04 ML 2.4ML PEN.INJCTR. SQ SCH ×2 (08:48→16:45)
[2017-05-30] MEDS: CHOLECALCIFEROL (VITAMIN D3) 1,000 UNIT TABLET PO SCH (09:00)
[2017-05-30] MEDS ORDERED: VITS A & D/LANOLIN TOPICAL OINTMENT 56GM TUBE. TP PRN (10:45)
[2017-05-30 11:00] VITALS: BP 133/56
[2017-05-30] MEDS: VITS A & D/LANOLIN TOPICAL OINTMENT 56GM TUBE. TP SCH ×2 (11:08→21:07)
--- NOTE | 2017-05-30 11:27 | PDOC ---
Infectious Disease Note Subjective Subjective pt feeling better, appears almost back to her baseline, no complaints ROS ROS GEN: Denies fevers, chills, sweats HEENT: Denies blurred vision, sore throat CV: Denies chest pain RESP: Denies shortness of air, cough GI: Denies n/v/d NEURO: Denies confusion, dizziness Vital Sign Vital Signs Vital Signs Date Time Temp Pulse Resp B/P (MAP) Pulse Ox O2 Delivery O2 Flow Rate FiO2 05/30/17 11:00 97.6 86 22 133/56 (81) 94 Nasal Cannula 2.0 97.6 Physical Exam PHYSICAL EXAM GENERAL: NAD, Alert HEENT: PERRL, OC/OP NECK: Supple, no JVD, no LN LUNGS: Clear HEART: S1S2, no gallop, no murmur ABD: Soft, NT, no organomegaly, no rebound EXT: No edema, no cyanosis [employer]: Alert, oriented x 3, no focal neurologic deficit SKIN: No rash IV: ok Labs Lab Laboratory Tests Test 05/29/17 11:47 05/29/17 16:18 05/29/17 20:53 05/30/17 04:28 Urine Sodium <60 mmol/L (Not Estab.) Urine Sodium 24 Hour <69 mmol/24 hr (39-258) Glucose (Fingerstick) 120 mg/dL (70-99) 125 mg/dL (70-99) White Blood Count 11.2 x10^3/uL (4.0-11.0) Red Blood Count 2.86 x10^6/uL (3.50-5.40) Hemoglobin 8.4 g/dL (12.0-15.5) Hematocrit 26.0 % (36.0-47.0) Mean Corpuscular Volume 91 fL (79-100) Mean Corpuscular Hemoglobin 30 pg (25-35) Mean Corpuscular Hemoglobin Concent 32 g/dL (31-37) Red Cell Distribution Width 15.3 % (11.5-14.5) Platelet Count 489 x10^3/uL (140-400) Neutrophils (%) (Auto) 70 % (31-73) Lymphocytes (%) (Auto) 14 % (24-48) Monocytes (%) (Auto) 14 % (0-9) Eosinophils (%) (Auto) 2 % (0-3) Basophils (%) (Auto) 1 % (0-3) Neutrophils # (Auto) 7.8 x10^3uL (1.8-7.7) Lymphocytes # (Auto) 1.6 x10^3/uL (1.0-4.8) Monocytes # (Auto) 1.5 x10^3/uL (0.0-1.1) Eosinophils # (Auto) 0.2 x10^3/uL (0.0-0.7) Basophils # (Auto) 0.1 x10^3/uL (0.0-0.2) Sodium Level 123 mmol/L (136-145) Potassium Level 4.8 mmol/L (3.5-5.1) Chloride Level 90 mmol/L (98-107) Carbon Dioxide Level 23 mmol/L (21-32) Anion Gap 10 (6-14) Blood Urea Nitrogen 33 mg/dL (7-20) Creatinine 1.1 mg/dL (0.6-1.0) Estimated GFR (Cockcroft-Gault) 49.7 Glucose Level 97 mg/dL (70-99) Calcium Level 8.6 mg/dL (8.5-10.1) Test 05/30/17 08:16 Glucose (Fingerstick) 96 mg/dL (70-99) Micro BC and urine culture neg Objective Assessment Cellulitis of LE, bilaterally Yeast -skin folds, pannus & groin areas Leukocytosis, h/o splenectomy Hypotension, off Levophed gtt RADHA w/ hyponatremia PCN & amoxicillin allergy causing trouble breathing Chronic Correa d/t urinary retention - h/o E. coli UTI R amp, quinolones, PIP, tetra, Bactrim & I Augmentin Back pain with left leg weakness and pain. h/o right hemilaminotomy & microdiscectomy, L4-5, 03/14/17. h/o myelodysplasia h/o splenectomy h/x genital HSV Hypothyroidism Paranoid schizophrenia DM II COPD, 3L O2 dependency Morbid obesity, BMI 55 Plan Plan of Care po diflucan and vantin pt/ot,, pt is not motivated to do, d/w therapist supportive care terminal supervisor prognosis poor LINDSAY LARA MD May 30, 2017 11:27
[2017-05-30] MEDS: VITAMIN E 200 UNIT CAPSULE. PO SCH (12:32)
--- NOTE | 2017-05-30 12:59 | PDOC ---
PROGRESS NOTES Subjective Subjective She admits continued low back pain. Objective Objective Vital Signs Date Time Temp Pulse Resp B/P (MAP) Pulse Ox O2 Delivery O2 Flow Rate FiO2 05/30/17 12:32 22 94 Nasal Cannula 2.0 05/30/17 11:00 97.6 86 133/56 (81) 97.6 Intake and Output 05/30/17 07:00 Intake Total 2400 ml Output Total 2600 ml Balance -200 ml Intake Oral 2400 ml Output Urine Total 2600 ml Physical Exam Physical Exam She is alert and in no acute distress and she is sitting up in bedside chair and working with physical therapy.She admits pain on movement of left lower extremity in her low back. Assessment Assessment Problems Medical Problems: (1) Hypotension Status: Acute Plan Plan of Care I spoke to physical therapy,nursing and in IR,who does not feel comfortable to consider kyphoplasty in her with her infections.To SNF when medically stable. Comment Review of Relevant I have reviewed the following items hitesh (where applicable) has been applied. Labs Laboratory Tests Test 05/28/17 17:28 05/28/17 21:48 05/29/17 04:05 05/29/17 07:20 Glucose (Fingerstick) 124 mg/dL (70-99) 123 mg/dL (70-99) 75 mg/dL (70-99) White Blood Count 12.9 x10^3/uL (4.0-11.0) Red Blood Count 2.93 x10^6/uL (3.50-5.40) Hemoglobin 8.7 g/dL (12.0-15.5) Hematocrit 26.8 % (36.0-47.0) Mean Corpuscular Volume 91 fL (79-100) Mean Corpuscular Hemoglobin 30 pg (25-35) Mean Corpuscular Hemoglobin Concent 33 g/dL (31-37) Red Cell Distribution Width 15.4 % (11.5-14.5) Platelet Count 509 x10^3/uL (140-400) Neutrophils (%) (Auto) 73 % (31-73) Lymphocytes (%) (Auto) 12 % (24-48) Monocytes (%) (Auto) 12 % (0-9) Eosinophils (%) (Auto) 2 % (0-3) Basophils (%) (Auto) 1 % (0-3) Neutrophils # (Auto) 9.4 x10^3uL (1.8-7.7) Lymphocytes # (Auto) 1.6 x10^3/uL (1.0-4.8) Monocytes # (Auto) 1.6 x10^3/uL (0.0-1.1) Eosinophils # (Auto) 0.2 x10^3/uL (0.0-0.7) Basophils # (Auto) 0.1 x10^3/uL (0.0-0.2) Sodium Level 122 mmol/L (136-145) Potassium Level 4.6 mmol/L (3.5-5.1) Chloride Level 89 mmol/L (98-107) Carbon Dioxide Level 26 mmol/L (21-32) Anion Gap 7 (6-14) Blood Urea Nitrogen 30 mg/dL (7-20) Creatinine 1.2 mg/dL (0.6-1.0) Estimated GFR (Cockcroft-Gault) 44.9 Glucose Level 93 mg/dL (70-99) Calcium Level 8.7 mg/dL (8.5-10.1) Test 05/29/17 10:25 05/29/17 11:47 05/29/17 16:18 05/29/17 20:53 Glucose (Fingerstick) 135 mg/dL (70-99) 120 mg/dL (70-99) 125 mg/dL (70-99) Urine Sodium <60 mmol/L (Not Estab.) Urine Sodium 24 Hour <69 mmol/24 hr (39-258) Test 05/30/17 04:28 05/30/17 08:16 05/30/17 10:16 White Blood Count 11.2 x10^3/uL (4.0-11.0) Red Blood Count 2.86 x10^6/uL (3.50-5.40) Hemoglobin 8.4 g/dL (12.0-15.5) Hematocrit 26.0 % (36.0-47.0) Mean Corpuscular Volume 91 fL (79-100) Mean Corpuscular Hemoglobin 30 pg (25-35) Mean Corpuscular Hemoglobin Concent 32 g/dL (31-37) Red Cell Distribution Width 15.3 % (11.5-14.5) Platelet Count 489 x10^3/uL (140-400) Neutrophils (%) (Auto) 70 % (31-73) Lymphocytes (%) (Auto) 14 % (24-48) Monocytes (%) (Auto) 14 % (0-9) Eosinophils (%) (Auto) 2 % (0-3) Basophils (%) (Auto) 1 % (0-3) Neutrophils # (Auto) 7.8 x10^3uL (1.8-7.7) Lymphocytes # (Auto) 1.6 x10^3/uL (1.0-4.8) Monocytes # (Auto) 1.5 x10^3/uL (0.0-1.1) Eosinophils # (Auto) 0.2 x10^3/uL (0.0-0.7) Basophils # (Auto) 0.1 x10^3/uL (0.0-0.2) Sodium Level 123 mmol/L (136-145) Potassium Level 4.8 mmol/L (3.5-5.1) Chloride Level 90 mmol/L (98-107) Carbon Dioxide Level 23 mmol/L (21-32) Anion Gap 10 (6-14) Blood Urea Nitrogen 33 mg/dL (7-20) Creatinine 1.1 mg/dL (0.6-1.0) Estimated GFR (Cockcroft-Gault) 49.7 Glucose Level 97 mg/dL (70-99) Calcium Level 8.6 mg/dL (8.5-10.1) Glucose (Fingerstick) 96 mg/dL (70-99) 143 mg/dL (70-99) Laboratory Tests Test 05/29/17 16:18 05/29/17 20:53 05/30/17 04:28 05/30/17 08:16 Glucose (Fingerstick) 120 mg/dL (70-99) 125 mg/dL (70-99) 96 mg/dL (70-99) White Blood Count 11.2 x10^3/uL (4.0-11.0) Red Blood Count 2.86 x10^6/uL (3.50-5.40) Hemoglobin 8.4 g/dL (12.0-15.5) Hematocrit 26.0 % (36.0-47.0) Mean Corpuscular Volume 91 fL (79-100) Mean Corpuscular Hemoglobin 30 pg (25-35) Mean Corpuscular Hemoglobin Concent 32 g/dL (31-37) Red Cell Distribution Width 15.3 % (11.5-14.5) Platelet Count 489 x10^3/uL (140-400) Neutrophils (%) (Auto) 70 % (31-73) Lymphocytes (%) (Auto) 14 % (24-48) Monocytes (%) (Auto) 14 % (0-9) Eosinophils (%) (Auto) 2 % (0-3) Basophils (%) (Auto) 1 % (0-3) Neutrophils # (Auto) 7.8 x10^3uL (1.8-7.7) Lymphocytes # (Auto) 1.6 x10^3/uL (1.0-4.8) Monocytes # (Auto) 1.5 x10^3/uL (0.0-1.1) Eosinophils # (Auto) 0.2 x10^3/uL (0.0-0.7) Basophils # (Auto) 0.1 x10^3/uL (0.0-0.2) Sodium Level 123 mmol/L (136-145) Potassium Level 4.8 mmol/L (3.5-5.1) Chloride Level 90 mmol/L (98-107) Carbon Dioxide Level 23 mmol/L (21-32) Anion Gap 10 (6-14) Blood Urea Nitrogen 33 mg/dL (7-20) Creatinine 1.1 mg/dL (0.6-1.0) Estimated GFR (Cockcroft-Gault) 49.7 Glucose Level 97 mg/dL (70-99) Calcium Level 8.6 mg/dL (8.5-10.1) Test 05/30/17 10:16 Glucose (Fingerstick) 143 mg/dL (70-99) Microbiology 05/26/17 Blood Culture - Preliminary, Resulted NO GROWTH AFTER 3 DAYS 05/26/17 Urine Culture - Final, Complete 05/26/17 Urine Culture Result 1 (ADELAIDA) - Final, Complete Medications Current Medications Fentanyl Citrate (Fentanyl 2ml Vial) 25 mcg PRN Q15MIN PRN IV PAIN GREATER THAN 3/10 Last administered on 05/26/17t 22:56; Start 05/26/17 at 12:45; Stop 05/27/17 at 12:44; Status DC Sodium Chloride 1,000 ml @ 1,000 mls/hr 1X ONCE IV Last administered on 14:40; Start 05/26/17 at 14:30; Stop 05/26/17 at 15:29; Status DC Clindamycin Phosphate 50 ml @ 100 mls/hr 1X ONCE IV Last administered on 05/26 14:46; Start 05/26/17 at 15:00; Stop 05/26/17 at 15:29; Status DC Sodium Chloride 1,000 ml @ 1,000 mls/hr 1X ONCE IV Last administered on 18:19; Start 05/26/17 at 16:00; Stop 05/26/17 at 16:59; Status DC Sodium Chloride 1,000 ml @ 1,770 mls/hr Q34M IV Last administered on 18:28; Start 05/26/17 at 17:00; Stop 05/26/17 at 18:00; Status DC Norepinephrine Bitartrate 250 ml @ 0 mls/hr CONT PRN IV SEE I/O RECORD Last administered on 05/26/17 18:19; Start 05/26/17 at 18:15; Stop 05/27/17 at 20: 35; Status DC Linezolid 300 ml @ 300 mls/hr Q12HR IV Last administered on 05/28/17 21:25; Start 05/26/17 at 21:00; Stop 05/29/17 at 08:25; Status DC Cefepime HCl 1 gm/ Dextrose 50 ml @ 100 mls/hr Q12HR IV ; Start 05/26/17 at 21: 00; Status UNV Cefepime HCl (Maxipime) 1 gm Q12H IVP Last administered on 05/28/17 19:39; Start 05/26/17 at 20:00; Stop 05/29/17 at 08:25; Status DC Ondansetron HCl (Zofran) 4 mg PRN Q8HRS PRN IV NAUSEA/VOMITING; Start 05/26/17 at 21:00; Stop 05/27/17 at 20:59; Status DC Bisacodyl (Dulcolax Tab) 10 mg PRN DAILY PRN PO CONSTIPATION; Start 05/27/17 at 08:45 Ferrous Sulfate (Feosol) 325 mg DAILYWBKFT PO Last administered on 05/30/17 08:31; Start 05/27/17 at 09:00 Haloperidol (Haldol) 5 mg DAILY16 PO Last administered on 05/29/17 15:42; Start 05/27/17 at 16:00 Acetaminophen/ Hydrocodone Bitart (Lortab 5/325) 1 tab PRN Q4HRS PRN PO PAIN Last administered on 05/29/17 23:12; Start 05/27/17 at 08:45 Levothyroxine Sodium (Synthroid) 125 mcg DAILY07 PO Last administered on 07:10; Start 05/28/17 at 07:00 Lidocaine (Lidoderm) 3 patch PRN DAILY PRN TD TOPICAL PAIN Last administered on 05/28/17 09:00; Start 05/27/17 at 08:45 Lisinopril (Prinivil) 20 mg DAILY08 PO Last administered on 05/29/17 09:31; Start 05/27/17 at 09:00 Nystatin (Mycostatin) 1 eusebio BID TP Last administered on 05/30/17 08:48; Start 05/27/17 at 09:00 Pioglitazone HCl (Actos) 15 mg DAILY PO Last administered on 05/30/17 08:31; Start 05/27/17 at 09:00 Tamsulosin HCl (Flomax) 0.4 mg QHS PO Last administered on 05/29/17 21:09; Start 05/27/17 at 21:00 Atorvastatin Calcium (Lipitor) 40 mg QHS PO Last administered on 05/29/17 21: 08; Start 05/27/17 at 21:00 Vitamin D (Vitamin D3) 500 unit DAILY PO Last administered on 05/30/17 09:00 ; Start 05/27/17 at 09:00 Exenatide (Byetta) 10 mcg BIDBFRMEAL SQ Last administered on 05/30/17 08:48; Start 05/27/17 at 16:30 Budesonide (Pulmicort) 0.5 mg RTBID NEB ; Start 05/27/17 at 09:00 Meloxicam (Mobic) 15 mg DAILY PO Last administered on 05/30/17 08:31; Start 05/27/17 at 09:00 Pantoprazole Sodium (Protonix) 40 mg DAILYAC PO Last administered on 08:31; Start 05/27/17 at 11:30 Oxycodone/ Acetaminophen (Percocet 7.5/ 325) 1 tab PRN Q4HRS PRN PO PAIN Last administered on 05/30/17 12:32; Start 05/27/17 at 08:45 Ropinirole HCl (Requip) 0.5 mg TID PO Last administered on 05/30/17 12:31; Start 05/27/17 at 09:00 Acyclovir (Zovirax) 200 mg [id number] PO Last administered on 05/30/17 12:31; Start 05/27/17 at 09:00 Vitamin E 1,000 unit DAILY PO Last administered on 05/30/17 12:32; Start 04/03 at 09:00 Metoprolol Tartrate (Lopressor) 12.5 mg BID PO Last administered on 05/29/17 21:10; Start 05/27/17 at 09:00 Fluconazole/ Sodium Chloride 100 ml @ 100 mls/hr Q24H IV Last administered on 05/28/17 09:06; Start 05/27/17 at 10:00; Stop 05/29/17 at 08:25; Status DC Lactobacillus Rhamnosus (Culturelle) 1 cap BID PO Last administered on 08:32; Start 05/27/17 at 21:00 Hydroxyzine Pamoate (Vistaril) 25 mg PRN Q6HRS PRN PO ITCHING Last administered on 05/29/17 21:08; Start 05/28/17 at 08:45 Lidocaine HCl (Xylocaine-Mpf 1% Vial) 2 ml 1X PRN PRN ID FOR PIC LINE INSERTION ; Start 05/28/17 at 09:45; Stop 05/29/17 at 09:44; Status DC Sodium Chloride (Normal Saline Flush) 20 ml 1X PRN PRN IV PER PROTOCOL; Start 05/28/17 at 09:45; Stop 05/29/17 at 09:44; Status DC Lidocaine/ Prilocaine (Emla) 1 eusebio 1X ONCE TP ; Start 05/28/17 at 09:45; Stop 05/28/17 at 09:49; Status DC Gadobutrol (Gadavist) 7 mmol 1X ONCE IV ; Start 05/28/17 at 16:45; Stop 05/28 at 16:46; Status DC Gadobutrol (Gadavist) 7 mmol 1X ONCE IV ; Start 05/28/17 at 16:45; Stop 05/28 at 16:46; Status DC Cefpodoxime Proxetil (Vantin) 200 mg BID PO Last administered on 05/30/17 08: 34; Start 05/29/17 at 09:00 Fluconazole (Diflucan) 200 mg DAILY PO Last administered on 05/30/17 08:32; Start 05/29/17 at 09:00 Sodium Chloride 1,000 ml @ 100 mls/hr Q10H IV Last administered on 05/30/17 09:42; Start 05/29/17 at 15:00 Vitamin A/Vitamin D (Vitamin A & D Ointment) 1 eusebio BID TP Last administered on 05/30/17 11:08; Start 05/30/17 at 10:45 Vitamin A/Vitamin D (Vitamin A & D Ointment) 1 eusebio PRN Q1HR PRN TP SKIN PROTECTION; Start 05/30/17 at 10:45 Active Scripts Active Citroma (Magnesium Citrate) 296 Ml Solution 296 Ml PO PRN 1X PRN 10 Days Synthroid (Levothyroxine Sodium) 100 Mcg Tablet 100 Mcg PO DAILY07 30 Days Lidocaine 1 Each Adh..patch 3 Patch TD PRN DAILY PRN 30 Days Nystatin 15 Gm Cream..g. 1 Eusebio TP BID 14 Days Flomax (Tamsulosin Hcl) 0.4 Mg Cap.er.24h 0.4 Mg PO QHS 30 Days Hydrocodone-Apap 5-325 (Hydrocodone Bit/Acetaminophen) 1 Each Tablet 1 Tab PO PRN Q4HRS PRN 30 Days Bisacodyl 5 Mg Tablet.dr 10 Mg PO PRN DAILY PRN 30 Days Feosol (Ferrous Sulfate) 325 Mg Tablet 325 Mg PO DAILYWBKFT 30 Days [Metoprolol Tartrate] 25 MG Tablet 12.5 Mg PO BID Reported Oxycodon-Acetaminophen 2.5-325 (Oxycodone Hcl/Acetaminophen) 1 Each Tablet 1 Each PO PRN Q6HRS PRN Proair Hfa Inhaler (Albuterol Sulfate) 8.5 Gm Hfa.aer.ad 1 Puff INH PRN Q6HRS PRN Actos (Pioglitazone Hcl) 15 Mg Tablet 15 Mg PO DAILY Trulicity (Dulaglutide) 0.75 Mg/0.5 Ml Pen.injctr 0.75 Mg SQ Requip (Ropinirole Hcl) 0.5 Mg Tablet 0.5 Mg PO BID Vitamin D3 (Cholecalciferol (Vitamin D3)) 400 Unit Tablet 400 Unit PO DAILY Brovana (Arformoterol Tartrate) 15 Mcg/2 Ml Vial.neb 15 Mcg IH Flovent 220MCG Hfa (Fluticasone Propionate) 12 Gm Aer.w.adap 12 Gm IH Vitamin E 1,000 Unit Capsule 1,000 Unit PO Haloperidol 5 Mg Tablet 5 Mg PO Lipitor (Atorvastatin Calcium) 80 Mg Tablet 80 Mg PO Valacyclovir (Valacyclovir Hcl) 1,000 Mg Tablet 1,000 Mg PO Oxybutynin Chloride 5 Mg Tablet 5 Mg PO Lisinopril 10 Mg Tablet 20 Mg PO Meloxicam 15 Mg Tablet 15 Mg PO Prilosec (Omeprazole) 10 Mg Capsule.dr 20 Mg PO Vitals/I & O Vital Sign - Last 24 Hours 05/29/17 05/29/17 05/29/17 05/29/17 15:00 15:42 17:07 20:00 Temp 97.6 97.6 Pulse 76 Resp 20 B/P (MAP) 118/67 (84) Pulse Ox 97 97 O2 Delivery Nasal Cannula Nasal Cannula Nasal Cannula Nasal Cannula O2 Flow Rate 2.0 2.0 2.0 2.0 05/29/17 05/29/17 05/29/17 05/29/17 20:29 21:10 21:10 23:12 Temp 97.4 97.4 Pulse 91 91 Resp 20 22 20 B/P (MAP) 115/51 (72) 115/51 Pulse Ox 100 O2 Delivery Nasal Cannula Nasal Cannula Nasal Cannula O2 Flow Rate 2.0 2.0 2.0 05/29/17 05/30/17 05/30/17 05/30/17 23:52 02:24 07:00 07:16 Temp 98.0 97.5 97.8 98.0 97.5 97.8 Pulse 78 81 89 Resp 16 20 22 20 B/P (MAP) 93/41 (58) 91/51 (64) 93/52 (66) Pulse Ox 100 95 95 95 O2 Delivery Nasal Cannula Nasal Cannula Nasal Cannula Nasal Cannula O2 Flow Rate 2.0 2.0 2.0 2.0 05/30/17 05/30/17 05/30/17 05/30/17 08:00 08:15 08:16 09:00 Pulse 88 83 Resp 18 B/P (MAP) 92/52 92/52 Pulse Ox 95 O2 Delivery Nasal Cannula Nasal Cannula O2 Flow Rate 2.0 2.0 05/30/17 05/30/17 11:00 12:32 Temp 97.6 97.6 Pulse 86 Resp 22 22 B/P (MAP) 133/56 (81) Pulse Ox 94 94 O2 Delivery Nasal Cannula Nasal Cannula O2 Flow Rate 2.0 2.0 Intake and Output 05/29/17 05/29/17 05/30/17 15:00 23:00 07:00 Intake Total 490 ml 1700 ml 210 ml Output Total 850 ml 1750 ml Balance 490 ml 850 ml -1540 ml CASSIDY ORNELAS MD May 30, 2017 12:59
--- NOTE | 2017-05-30 14:38 | PDOC ---
Provider Note Provider Note Brief IR note Asked to evaluate patient for possible vertebral augmentation. Imaging and chart reviewed. Agree with neurosurgery recommendation to avoid vertebral augmentation at current time due to increased right of infection. This was discussed with pain management. АННА LESLIE MD May 30, 2017 14:38
--- NOTE | 2017-05-30 14:44 | PDOC ---
PROGRESS NOTES Subjective Up in chair. Skin cellulitis is alot better so being evaluated by IR for kyphoplasty, still severley hyponatremic and still not back to baseline mental function, Afib persisting but rate ok, BP too low for ACEI today which was held by nursing Objective Afebrile BP: 92/52 General: anxious Heart: irreg, irreg, rate currently 102 Lungs: CTA Abd: obese, soft Ext: improved cellulitis, no new excoriations, wounds being addressed Back: L3 area tenderness WBC: 11.2 - improved Hgb: 8.4, stable K+: 4.8 Creat: 1.1, improved Na+: 123 Vital Signs Vital Signs Date Time Temp Pulse Resp B/P (MAP) Pulse Ox O2 Delivery O2 Flow Rate FiO2 05/30/17 12:32 22 94 Nasal Cannula 2.0 05/30/17 11:00 97.6 86 133/56 (81) 97.6 I & O Intake and Output 05/30/17 07:00 Intake Total 2400 ml Output Total 2600 ml Balance -200 ml Intake Oral 2400 ml Output Urine Total 2600 ml Assessment and Plan 1. Sepsis with increased leukocytosis, hypotension and abnormal urinalysis, urine culture negative so likely from skin source, improving, now on po antibiotics and po yeast meds 2. Hyponatremia, unchanged at 122, 24 hr urine sodium in progress. 3. Acute ( new L3 compression fracture) on chronic back pain with a recent L4- 5 lumbar laminectomy, IR to see for kyphoplasty as skin infection is better. 4. New onset atrial fibrillation, rate controlled, on ASA as fall risk. 5. Hypothyroidism, undertreated - dose increased. 6. Type 2 diabetes, controlled. 7. Schizophrenia, paranoid type, drinking a lot of water so will fluid restrict. 8. Acute renal failure from dehydration and likely tubular necrosis. 9. Sacral decubitus ulcer present on admission. 10. cellulitis of lower extremities, improving with antibiotics 11. myelodysplasia, asplenic 12. RADHA - resolving 13. yeast dermatitis - continue meds Problems: Prosper MEEHAN MD May 30, 2017 14:44
[2017-05-30 15:00] VITALS: BP 141/72
[2017-05-30] MEDS: HALOPERIDOL 5 MG TABLET. PO SCH (16:00)
[2017-05-30 19:05] VITALS: BP 136/76
[2017-05-30] MEDS: hydrOXYzine PAMOATE 25 MG CAPSULE PO PRN (21:02)
[2017-05-30] MEDS: ATORVASTATIN CALCIUM 40 MG TABLET. PO SCH (21:02)
[2017-05-30] MEDS: TAMSULOSIN 0.4 MG CAP.ER.24H. PO SCH (21:02)
[2017-05-30] MEDS: HYDROcodone/APAP 5/325MG 1 TAB TABLET PO PRN (21:03)
[2017-05-30 23:05] VITALS: BP 120/55
[2017-05-31] MEDS: oxyCODONE/APAP 7.5/325 1 TAB TABLET PO PRN ×2 (01:58→06:38)
[2017-05-31] MEDS: IV NORMAL SALINE 1000ML BAG 1,000 ML IV SCH ×3 (01:59→17:00)
[2017-05-31] MEDS: hydrOXYzine PAMOATE 25 MG CAPSULE PO PRN (02:01)
[2017-05-31 03:05] VITALS: BP 119/53
[2017-05-31 06:27] LABS: GFR 55.5; POTASSIUM 4.8 mmol/L (3.5-5.1)
[2017-05-31] MEDS: LEVOTHYROXINE 100 MCG TABLET PO SCH (06:34)
[2017-05-31 07:00] VITALS: BP 109/54
[2017-05-31] MEDS: EXENATIDE 10 MCG/0.04 ML 2.4ML PEN.INJCTR. SQ SCH ×2 (07:30→17:13)
[2017-05-31] MEDS: BUDESONIDE 0.5 MG/2 ML NEBU. NEB SCH ×2 (08:11→19:43)
--- NOTE | 2017-05-31 08:20 | PDOC ---
PROGRESS NOTES Subjective Pt was seen and examined this morning. She was informed that she NS and IR would not be doing a procedure on her back. She has c/o swelling in her arms and dry mouth. She expressed concern over her insurance coverage and reports she may be going through a divorce. She reports working with social work on these issues. Objective Afebrile General: NAD, obese Heart: irreg, irreg, rate currently 106 Lungs: clear to auscultation Abd: BS present, present Ext: BUE edema. IV lines are clear/dry/intact Vital Signs Vital Signs Date Time Temp Pulse Resp B/P (MAP) Pulse Ox O2 Delivery O2 Flow Rate FiO2 05/31/17 07:38 Nasal Cannula 2.0 05/31/17 03:05 97.8 101 18 119/53 (75) 97 97.8 I & O Intake and Output 05/31/17 07:00 Intake Total 3543 ml Output Total 1800 ml Balance 1743 ml Intake Oral 2060 ml IV Total 1483 ml Output Urine Total 1800 ml # Bowel Movements 1 Assessment and Plan Problems Medical Problems: (1) Hypotension Status: Acute 1. Sepsis with increased leukocytosis, hypotension and abnormal urinalysis, urine culture negative so likely from skin source, improving, now on po antibiotics and po yeast meds - discussed with Dr. Sood 2. Hyponatremia, unchanged at 122. 3. Acute ( new L3 compression fracture) on chronic back pain with a recent L4- 5 lumbar laminectomy, IR will not do procedure due to infection risk. 4. New onset atrial fibrillation, rate controlled, on ASA as fall risk. 5. Hypothyroidism, undertreated - dose increased. 6. Type 2 diabetes, controlled. 7. Schizophrenia, paranoid type, drinking a lot of water so will fluid restrict. 8. Acute renal failure from dehydration and likely tubular necrosis. 9. Sacral decubitus ulcer present on admission. 10. cellulitis of lower extremities, improving with antibiotics 11. myelodysplasia, asplenic 12. RADHA - resolving 13. yeast dermatitis - continue meds 14. extremity edema - start lasix Problems: Prosper MEEHAN MD May 31, 2017 08:20
[2017-05-31] MEDS ORDERED: FUROSEMIDE 40 MG/4 ML VIAL. IVP ONE (08:30)
--- NOTE | 2017-05-31 08:32 | PDOC ---
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, no focal neurologic deficit SKIN: No rash IV: ok Labs Lab Laboratory Tests Test 05/30/17 10:16 05/30/17 16:44 05/30/17 20:25 05/31/17 05:50 Glucose (Fingerstick) 143 mg/dL (70-99) 137 mg/dL (70-99) 115 mg/dL (70-99) Sodium Level 122 mmol/L (136-145) Potassium Level 4.8 mmol/L (3.5-5.1) Chloride Level 91 mmol/L (98-107) Carbon Dioxide Level 25 mmol/L (21-32) Anion Gap 6 (6-14) Blood Urea Nitrogen 31 mg/dL (7-20) Creatinine 1.0 mg/dL (0.6-1.0) Estimated GFR (Cockcroft-Gault) 55.5 Glucose Level 96 mg/dL (70-99) Calcium Level 9.0 mg/dL (8.5-10.1) Micro BC and urine culture neg Objective Assessment Cellulitis of LE, bilaterally Yeast -skin folds, pannus & groin areas Leukocytosis, h/o splenectomy Hypotension, off Levophed gtt RADHA w/ hyponatremia PCN & amoxicillin allergy causing trouble breathing Chronic Correa d/t urinary retention - h/o E. coli UTI R amp, quinolones, PIP, tetra, Bactrim & I Augmentin Back pain with left leg weakness and pain. h/o right hemilaminotomy & microdiscectomy, L4-5, 03/14/17. h/o myelodysplasia h/o splenectomy h/x genital HSV Hypothyroidism Paranoid schizophrenia DM II COPD, 3L O2 dependency Morbid obesity, BMI 55 Plan Plan of Care po diflucan and vantin pt/ot,, pt is not motivated to do, d/w therapist supportive care fdc prognosis poor d/w LINDSAY Arellano MD May 31, 2017 08:32
[2017-05-31] MEDS: METOPROLOL TART IMMED RELEASE 25 MG TABLET. PO SCH ×2 (08:48→20:08)
[2017-05-31] MEDS: MELOXICAM 7.5 MG TABLET PO SCH (08:49)
[2017-05-31] MEDS: CHOLECALCIFEROL (VITAMIN D3) 1,000 UNIT TABLET PO SCH (08:49)
[2017-05-31] MEDS: FERROUS SULFATE 325 MG TABLET. PO SCH (08:49)
[2017-05-31] MEDS: ACYCLOVIR 200 MG CAPSULE. PO SCH ×3 (08:50→20:11)
[2017-05-31] MEDS: PIOGLITAZONE 15 MG TABLET. PO SCH (08:50)
[2017-05-31] MEDS: PANTOPRAZOLE 40 MG TABLET.DR. PO SCH (08:50)
[2017-05-31] MEDS: VITAMIN E 200 UNIT CAPSULE. PO SCH (08:51)
[2017-05-31] MEDS: LACTOBACILLUS RHAMNOSUS GG 1 CAPSULE. PO SCH ×2 (08:52→20:08)
[2017-05-31] MEDS: rOPINIRole 0.25 MG TABLET. PO SCH ×3 (08:52→20:07)
[2017-05-31] MEDS: FLUCONAZOLE 100 MG TABLET. PO SCH (08:52)
[2017-05-31] MEDS: CEFPODOXIME PROXETIL 100 MG TABLET. PO SCH ×2 (08:52→20:07)
[2017-05-31] MEDS: VITS A & D/LANOLIN TOPICAL OINTMENT 56GM TUBE. TP SCH ×2 (09:00→20:10)
[2017-05-31] MEDS: NYSTATIN 100,000 UNIT/GM TOPICAL CREAM 15GM TUBE. TP SCH ×2 (09:00→20:09)
--- NOTE | 2017-05-31 10:14 | PDOC ---
PROGRESS NOTES Subjective Subjective No new complaints. Objective Objective Vital Signs Date Time Temp Pulse Resp B/P (MAP) Pulse Ox O2 Delivery O2 Flow Rate FiO2 05/31/17 08:48 94 109/54 05/31/17 08:12 98 Nasal Cannula 3.0 05/31/17 07:00 97.5 22 97.5 Intake and Output 05/31/17 07:00 Intake Total 3543 ml Output Total 1800 ml Balance 1743 ml Intake Oral 2060 ml IV Total 1483 ml Output Urine Total 1800 ml # Bowel Movements 1 Physical Exam Physical Exam She is sitting up in bedside chair and nursing reports of her transferring with supervision. Assessment Assessment Problems Medical Problems: (1) Hypotension Status: Acute Plan Plan of Care To SNF for continued care when medically stable. Comment Review of Relevant I have reviewed the following items hitesh (where applicable) has been applied. Labs Laboratory Tests Test 05/29/17 10:25 05/29/17 11:47 05/29/17 16:18 05/29/17 20:53 Glucose (Fingerstick) 135 mg/dL (70-99) 120 mg/dL (70-99) 125 mg/dL (70-99) Urine Sodium <60 mmol/L (Not Estab.) Urine Sodium 24 Hour <69 mmol/24 hr (39-258) Test 05/30/17 04:28 05/30/17 08:16 05/30/17 10:16 05/30/17 16:44 White Blood Count 11.2 x10^3/uL (4.0-11.0) Red Blood Count 2.86 x10^6/uL (3.50-5.40) Hemoglobin 8.4 g/dL (12.0-15.5) Hematocrit 26.0 % (36.0-47.0) Mean Corpuscular Volume 91 fL (79-100) Mean Corpuscular Hemoglobin 30 pg (25-35) Mean Corpuscular Hemoglobin Concent 32 g/dL (31-37) Red Cell Distribution Width 15.3 % (11.5-14.5) Platelet Count 489 x10^3/uL (140-400) Neutrophils (%) (Auto) 70 % (31-73) Lymphocytes (%) (Auto) 14 % (24-48) Monocytes (%) (Auto) 14 % (0-9) Eosinophils (%) (Auto) 2 % (0-3) Basophils (%) (Auto) 1 % (0-3) Neutrophils # (Auto) 7.8 x10^3uL (1.8-7.7) Lymphocytes # (Auto) 1.6 x10^3/uL (1.0-4.8) Monocytes # (Auto) 1.5 x10^3/uL (0.0-1.1) Eosinophils # (Auto) 0.2 x10^3/uL (0.0-0.7) Basophils # (Auto) 0.1 x10^3/uL (0.0-0.2) Sodium Level 123 mmol/L (136-145) Potassium Level 4.8 mmol/L (3.5-5.1) Chloride Level 90 mmol/L (98-107) Carbon Dioxide Level 23 mmol/L (21-32) Anion Gap 10 (6-14) Blood Urea Nitrogen 33 mg/dL (7-20) Creatinine 1.1 mg/dL (0.6-1.0) Estimated GFR (Cockcroft-Gault) 49.7 Glucose Level 97 mg/dL (70-99) Calcium Level 8.6 mg/dL (8.5-10.1) Glucose (Fingerstick) 96 mg/dL (70-99) 143 mg/dL (70-99) 137 mg/dL (70-99) Test 05/30/17 20:25 05/31/17 05:50 05/31/17 07:29 Glucose (Fingerstick) 115 mg/dL (70-99) 79 mg/dL (70-99) Sodium Level 122 mmol/L (136-145) Potassium Level 4.8 mmol/L (3.5-5.1) Chloride Level 91 mmol/L (98-107) Carbon Dioxide Level 25 mmol/L (21-32) Anion Gap 6 (6-14) Blood Urea Nitrogen 31 mg/dL (7-20) Creatinine 1.0 mg/dL (0.6-1.0) Estimated GFR (Cockcroft-Gault) 55.5 Glucose Level 96 mg/dL (70-99) Calcium Level 9.0 mg/dL (8.5-10.1) Laboratory Tests Test 05/30/17 10:16 05/30/17 16:44 05/30/17 20:25 05/31/17 05:50 Glucose (Fingerstick) 143 mg/dL (70-99) 137 mg/dL (70-99) 115 mg/dL (70-99) Sodium Level 122 mmol/L (136-145) Potassium Level 4.8 mmol/L (3.5-5.1) Chloride Level 91 mmol/L (98-107) Carbon Dioxide Level 25 mmol/L (21-32) Anion Gap 6 (6-14) Blood Urea Nitrogen 31 mg/dL (7-20) Creatinine 1.0 mg/dL (0.6-1.0) Estimated GFR (Cockcroft-Gault) 55.5 Glucose Level 96 mg/dL (70-99) Calcium Level 9.0 mg/dL (8.5-10.1) Test 05/31/17 07:29 Glucose (Fingerstick) 79 mg/dL (70-99) Microbiology 05/26/17 Blood Culture - Preliminary, Resulted NO GROWTH AFTER 4 DAYS 05/26/17 Urine Culture - Final, Complete 05/26/17 Urine Culture Result 1 (ADELAIDA) - Final, Complete Medications Current Medications Fentanyl Citrate (Fentanyl 2ml Vial) 25 mcg PRN Q15MIN PRN IV PAIN GREATER THAN 3/10 Last administered on 05/26/17 22:56; Start 05/26/17 at 12:45; Stop 05/27/17 at 12:44; Status DC Sodium Chloride 1,000 ml @ 1,000 mls/hr 1X ONCE IV Last administered on 14:40; Start 05/26/17 at 14:30; Stop 05/26/17 at 15:29; Status DC Clindamycin Phosphate 50 ml @ 100 mls/hr 1X ONCE IV Last administered on 05/26 14:46; Start 05/26/17 at 15:00; Stop 05/26/17 at 15:29; Status DC Sodium Chloride 1,000 ml @ 1,000 mls/hr 1X ONCE IV Last administered on 18:19; Start 05/26/17 at 16:00; Stop 05/26/17 at 16:59; Status DC Sodium Chloride 1,000 ml @ 1,770 mls/hr Q34M IV Last administered on 18:28; Start 05/26/17 at 17:00; Stop 05/26/17 at 18:00; Status DC Norepinephrine Bitartrate 250 ml @ 0 mls/hr CONT PRN IV SEE I/O RECORD Last administered on 05/26/17 18:19; Start 05/26/17 at 18:15; Stop 05/27/17 at 20: 35; Status DC Linezolid 300 ml @ 300 mls/hr Q12HR IV Last administered on 05/28/17 21:25; Start 05/26/17 at 21:00; Stop 05/29/17 at 08:25; Status DC Cefepime HCl 1 gm/ Dextrose 50 ml @ 100 mls/hr Q12HR IV ; Start 05/26/17 at 21: 00; Status UNV Cefepime HCl (Maxipime) 1 gm Q12H IVP Last administered on 05/28/17 19:39; Start 05/26/17 at 20:00; Stop 05/29/17 at 08:25; Status DC Ondansetron HCl (Zofran) 4 mg PRN Q8HRS PRN IV NAUSEA/VOMITING; Start 05/26/17 at 21:00; Stop 05/27/17 at 20:59; Status DC Bisacodyl (Dulcolax Tab) 10 mg PRN DAILY PRN PO CONSTIPATION; Start 05/27/17 at 08:45 Ferrous Sulfate (Feosol) 325 mg DAILYWBKFT PO Last administered on 05/31/17 08:49; Start 05/27/17 at 09:00 Haloperidol (Haldol) 5 mg DAILY16 PO Last administered on 05/30/17 16:00; Start 05/27/17 at 16:00 Acetaminophen/ Hydrocodone Bitart (Lortab 5/325) 1 tab PRN Q4HRS PRN PO PAIN Last administered on 05/30/17 21:03; Start 05/27/17 at 08:45 Levothyroxine Sodium (Synthroid) 125 mcg DAILY07 PO Last administered on 06:34; Start 05/28/17 at 07:00 Lidocaine (Lidoderm) 3 patch PRN DAILY PRN TD TOPICAL PAIN Last administered on 05/28/17 09:00; Start 05/27/17 at 08:45 Lisinopril (Prinivil) 20 mg DAILY08 PO Last administered on 05/29/17 09:31; Start 05/27/17 at 09:00 Nystatin (Mycostatin) 1 eusebio BID TP Last administered on 05/31/17 09:00; Start 05/27/17 at 09:00 Pioglitazone HCl (Actos) 15 mg DAILY PO Last administered on 05/31/17 08:50; Start 05/27/17 at 09:00 Tamsulosin HCl (Flomax) 0.4 mg QHS PO Last administered on 05/30/17 21:02; Start 05/27/17 at 21:00 Atorvastatin Calcium (Lipitor) 40 mg QHS PO Last administered on 05/30/17 21: 02; Start 05/27/17 at 21:00 Vitamin D (Vitamin D3) 500 unit DAILY PO Last administered on 05/31/17 08:49 ; Start 05/27/17 at 09:00 Exenatide (Byetta) 10 mcg BIDBFRMEAL SQ Last administered on 05/30/17 16:45; Start 05/27/17 at 16:30 Budesonide (Pulmicort) 0.5 mg RTBID NEB Last administered on 05/31/17 08:11; Start 05/27/17 at 09:00 Meloxicam (Mobic) 15 mg DAILY PO Last administered on 05/31/17 08:49; Start 05/27/17 at 09:00 Pantoprazole Sodium (Protonix) 40 mg DAILYAC PO Last administered on 08:50; Start 05/27/17 at 11:30 Oxycodone/ Acetaminophen (Percocet 7.5/ 325) 1 tab PRN Q4HRS PRN PO PAIN Last administered on 05/31/17 06:38; Start 05/27/17 at 08:45 Ropinirole HCl (Requip) 0.5 mg TID PO Last administered on 05/31/17 08:52; Start 05/27/17 at 09:00 Acyclovir (Zovirax) 200 mg [id number] PO Last administered on 05/31/17 08:50; Start 05/27/17 at 09:00 Vitamin E 1,000 unit DAILY PO Last administered on 05/31/17 08:51; Start 04/03 at 09:00 Metoprolol Tartrate (Lopressor) 12.5 mg BID PO Last administered on 05/31/17 08:48; Start 05/27/17 at 09:00 Fluconazole/ Sodium Chloride 100 ml @ 100 mls/hr Q24H IV Last administered on 05/28/17 09:06; Start 05/27/17 at 10:00; Stop 05/29/17 at 08:25; Status DC Lactobacillus Rhamnosus (Culturelle) 1 cap BID PO Last administered on 08:52; Start 05/27/17 at 21:00 Hydroxyzine Pamoate (Vistaril) 25 mg PRN Q6HRS PRN PO ITCHING Last administered on 05/31/17 02:01; Start 05/28/17 at 08:45 Lidocaine HCl (Xylocaine-Mpf 1% Vial) 2 ml 1X PRN PRN ID FOR PIC LINE INSERTION ; Start 05/28/17 at 09:45; Stop 05/29/17 at 09:44; Status DC Sodium Chloride (Normal Saline Flush) 20 ml 1X PRN PRN IV PER PROTOCOL; Start 05/28/17 at 09:45; Stop 05/29/17 at 09:44; Status DC Lidocaine/ Prilocaine (Emla) 1 eusebio 1X ONCE TP ; Start 05/28/17 at 09:45; Stop 05/28/17 at 09:49; Status DC Gadobutrol (Gadavist) 7 mmol 1X ONCE IV ; Start 05/28/17 at 16:45; Stop 05/28 at 16:46; Status DC Gadobutrol (Gadavist) 7 mmol 1X ONCE IV ; Start 05/28/17 at 16:45; Stop 05/28 at 16:46; Status DC Cefpodoxime Proxetil (Vantin) 200 mg BID PO Last administered on 05/31/17 08: 52; Start 05/29/17 at 09:00 Fluconazole (Diflucan) 200 mg DAILY PO Last administered on 05/31/17 08:52; Start 05/29/17 at 09:00 Sodium Chloride 1,000 ml @ 100 mls/hr Q10H IV Last administered on 05/31/17 07:00; Start 05/29/17 at 15:00 Vitamin A/Vitamin D (Vitamin A & D Ointment) 1 eusebio BID TP Last administered on 05/31/17 09:00; Start 05/30/17 at 10:45 Vitamin A/Vitamin D (Vitamin A & D Ointment) 1 eusebio PRN Q1HR PRN TP SKIN PROTECTION; Start 05/30/17 at 10:45 Furosemide (Lasix) 40 mg 1X ONCE IVP Last administered on 05/31/17 08:56; Start 05/31/17 at 08:30; Stop 05/31/17 at 08:31; Status DC Active Scripts Active Citroma (Magnesium Citrate) 296 Ml Solution 296 Ml PO PRN 1X PRN 10 Days Synthroid (Levothyroxine Sodium) 100 Mcg Tablet 100 Mcg PO DAILY07 30 Days Lidocaine 1 Each Adh..patch 3 Patch TD PRN DAILY PRN 30 Days Nystatin 15 Gm Cream..g. 1 Eusebio TP BID 14 Days Flomax (Tamsulosin Hcl) 0.4 Mg Cap.er.24h 0.4 Mg PO QHS 30 Days Hydrocodone-Apap 5-325 (Hydrocodone Bit/Acetaminophen) 1 Each Tablet 1 Tab PO PRN Q4HRS PRN 30 Days Bisacodyl 5 Mg Tablet.dr 10 Mg PO PRN DAILY PRN 30 Days Feosol (Ferrous Sulfate) 325 Mg Tablet 325 Mg PO DAILYWBKFT 30 Days [Metoprolol Tartrate] 25 MG Tablet 12.5 Mg PO BID Reported Oxycodon-Acetaminophen 2.5-325 (Oxycodone Hcl/Acetaminophen) 1 Each Tablet 1 Each PO PRN Q6HRS PRN Proair Hfa Inhaler (Albuterol Sulfate) 8.5 Gm Hfa.aer.ad 1 Puff INH PRN Q6HRS PRN Actos (Pioglitazone Hcl) 15 Mg Tablet 15 Mg PO DAILY Trulicity (Dulaglutide) 0.75 Mg/0.5 Ml Pen.injctr 0.75 Mg SQ Requip (Ropinirole Hcl) 0.5 Mg Tablet 0.5 Mg PO BID Vitamin D3 (Cholecalciferol (Vitamin D3)) 400 Unit Tablet 400 Unit PO DAILY Brovana (Arformoterol Tartrate) 15 Mcg/2 Ml Vial.neb 15 Mcg IH Flovent 220MCG Hfa (Fluticasone Propionate) 12 Gm Aer.w.adap 12 Gm IH Vitamin E 1,000 Unit Capsule 1,000 Unit PO Haloperidol 5 Mg Tablet 5 Mg PO Lipitor (Atorvastatin Calcium) 80 Mg Tablet 80 Mg PO Valacyclovir (Valacyclovir Hcl) 1,000 Mg Tablet 1,000 Mg PO Oxybutynin Chloride 5 Mg Tablet 5 Mg PO Lisinopril 10 Mg Tablet 20 Mg PO Meloxicam 15 Mg Tablet 15 Mg PO Prilosec (Omeprazole) 10 Mg Capsule.dr 20 Mg PO Vitals/I & O Vital Sign - Last 24 Hours 05/30/17 05/30/17 05/30/17 05/30/17 11:00 12:32 13:30 15:00 Temp 97.6 97.5 97.6 97.5 Pulse 86 86 Resp B/P (MAP) 133/56 (81) 141/72 (95) Pulse Ox 94 94 94 98 O2 Delivery Nasal Cannula Nasal Cannula Nasal Cannula O2 Flow Rate 2.0 2.0 2.0 05/30/17 05/30/17 05/30/17 05/30/17 16:45 19:05 19:58 21:02 Temp 97.7 97.7 Pulse 80 80 Resp B/P (MAP) 136/76 (96) 136/76 Pulse Ox 98 99 O2 Delivery Nasal Cannula Nasal Cannula Nasal Cannula O2 Flow Rate 2.0 2.0 2.0 05/30/17 05/30/17 05/31/17 05/31/17 21:03 23:05 03:05 07:00 Temp 97.4 97.8 97.5 97.4 97.8 97.5 Pulse 90 101 89 Resp B/P (MAP) 120/55 (76) 119/53 (75) 109/54 (72) Pulse Ox 98 97 100 O2 Delivery Nasal Cannula Nasal Cannula Nasal Cannula Nasal Cannula O2 Flow Rate 2.0 2.0 2.0 3.0 05/31/17 05/31/17 05/31/17 05/31/17 07:38 07:38 08:12 08:48 Pulse 94 B/P (MAP) 109/54 Pulse Ox 98 O2 Delivery Nasal Cannula Nasal Cannula Nasal Cannula O2 Flow Rate 2.0 2.0 3.0 Intake and Output 05/30/17 05/30/17 05/31/17 15:00 23:00 07:00 Intake Total 700 ml 2343 ml 500 ml Output Total 400 ml 1400 ml Balance 300 ml 2343 ml -900 ml CASSIDY ORNELAS MD May 31, 2017 10:14
[2017-05-31 11:00] VITALS: BP 134/53
[2017-05-31] MEDS: LISINOPRIL 10 MG TABLET PO SCH (11:02)
[2017-05-31] MEDS: HALOPERIDOL 5 MG TABLET. PO SCH (14:48)
[2017-05-31 15:00] VITALS: BP 135/62
[2017-05-31] MEDS: HYDROcodone/APAP 5/325MG 1 TAB TABLET PO PRN (16:15)
[2017-05-31 19:05] VITALS: BP 119/61
[2017-05-31] MEDS: TAMSULOSIN 0.4 MG CAP.ER.24H. PO SCH (20:07)
[2017-05-31] MEDS: ATORVASTATIN CALCIUM 40 MG TABLET. PO SCH (20:08)
[2017-05-31 23:05] VITALS: BP 150/66
[2017-06-01] VITALS (7 sets, daily range): BP systolic 112–138; BP diastolic 60–73
[2017-06-01] MEDS: IV NORMAL SALINE 1000ML BAG 1,000 ML IV SCH ×2 (03:00→16:58)
[2017-06-01 06:19] LABS: CALCIUM 8.9 mg/dL (8.5-10.1); CREATININE 0.8 mg/dL (0.6-1.0); GFR 71.8; POTASSIUM 4.7 mmol/L (3.5-5.1)
[2017-06-01] MEDS: BUDESONIDE 0.5 MG/2 ML NEBU. NEB SCH ×2 (08:00→21:38)
--- NOTE | 2017-06-01 08:28 | PDOC ---
Infectious Disease Note Subjective Subjective pt feeling better, appears almost back to her baseline, no complaints ROS ROS no n/v/d/pain Vital Sign Vital Signs Vital Signs Date Time Temp Pulse Resp B/P (MAP) Pulse Ox O2 Delivery O2 Flow Rate FiO2 06/01/17 03:10 98.1 109 18 136/60 (85) 97 Nasal Cannula 2.0 98.1 Physical Exam PHYSICAL EXAM GENERAL: NAD, Alert HEENT: PERRL, OC/OP NECK: Supple, no JVD, no LN LUNGS: Clear HEART: S1S2, no gallop, no murmur ABD: Soft, NT, no organomegaly, no rebound EXT: No edema, no cyanosis [employer]: Alert, oriented x 3, no focal neurologic deficit SKIN: No rash IV: ok Labs Lab Laboratory Tests Test 05/31/17 10:47 05/31/17 17:00 05/31/17 20:49 06/01/17 05:15 Glucose (Fingerstick) 109 mg/dL (70-99) 136 mg/dL (70-99) 155 mg/dL (70-99) Sodium Level 128 mmol/L (136-145) Potassium Level 4.7 mmol/L (3.5-5.1) Chloride Level 94 mmol/L (98-107) Carbon Dioxide Level 25 mmol/L (21-32) Anion Gap 9 (6-14) Blood Urea Nitrogen 27 mg/dL (7-20) Creatinine 0.8 mg/dL (0.6-1.0) Estimated GFR (Cockcroft-Gault) 71.8 Glucose Level 111 mg/dL (70-99) Calcium Level 8.9 mg/dL (8.5-10.1) Micro BC and urine culture neg Objective Assessment Cellulitis of LE, bilaterally Yeast -skin folds, pannus & groin areas Leukocytosis, h/o splenectomy Hypotension, off Levophed gtt RADHA w/ hyponatremia PCN & amoxicillin allergy causing trouble breathing Chronic Correa d/t urinary retention - h/o E. coli UTI R amp, quinolones, PIP, tetra, Bactrim & I Augmentin Back pain with left leg weakness and pain. h/o right hemilaminotomy & microdiscectomy, L4-5, 03/14/17. h/o myelodysplasia h/o splenectomy h/x genital HSV Hypothyroidism Paranoid schizophrenia DM II COPD, 3L O2 dependency Morbid obesity, BMI 55 Plan Plan of Care po millie and sherwintin pt/ot,, pt is not motivated to do, d/w therapist supportive care senior care prognosis poor d/w LINDSAY Arellano MD Jun 01, 2017 08:28
[2017-06-01] MEDS ORDERED: FUROSEMIDE 40 MG/4 ML VIAL. IVP ONE (09:00)
--- NOTE | 2017-06-01 09:10 | PDOC ---
PROGRESS NOTES Subjective Subjective No new complaints. Objective Objective Vital Signs Date Time Temp Pulse Resp B/P (MAP) Pulse Ox O2 Delivery O2 Flow Rate FiO2 06/01/17 07:00 97.6 82 20 138/67 (90) 98 Nasal Cannula 2.0 97.6 Intake and Output 06/01/17 07:00 Intake Total 2100 ml Output Total 3675 ml Balance -1575 ml Intake Oral 1500 ml IV Total 600 ml Output Urine Total 3675 ml # Bowel Movements 1 Physical Exam Physical Exam She is sitting up in bed with head end elevated and eating breakfast.I spoke to nursing and . Assessment Assessment Problems Medical Problems: (1) Hypotension Status: Acute Plan Plan of Prison with home health follow up when medically stable. Comment Review of Relevant I have reviewed the following items hitesh (where applicable) has been applied. Labs Laboratory Tests Test 05/30/17 10:16 05/30/17 16:44 05/30/17 20:25 05/31/17 05:50 Glucose (Fingerstick) 143 mg/dL (70-99) 137 mg/dL (70-99) 115 mg/dL (70-99) Sodium Level 122 mmol/L (136-145) Potassium Level 4.8 mmol/L (3.5-5.1) Chloride Level 91 mmol/L (98-107) Carbon Dioxide Level 25 mmol/L (21-32) Anion Gap 6 (6-14) Blood Urea Nitrogen 31 mg/dL (7-20) Creatinine 1.0 mg/dL (0.6-1.0) Estimated GFR (Cockcroft-Gault) 55.5 Glucose Level 96 mg/dL (70-99) Calcium Level 9.0 mg/dL (8.5-10.1) Test 05/31/17 07:29 05/31/17 10:47 05/31/17 17:00 05/31/17 20:49 Glucose (Fingerstick) 79 mg/dL (70-99) 109 mg/dL (70-99) 136 mg/dL (70-99) 155 mg/dL (70-99) Test 06/01/17 05:15 06/01/17 07:38 Sodium Level 128 mmol/L (136-145) Potassium Level 4.7 mmol/L (3.5-5.1) Chloride Level 94 mmol/L (98-107) Carbon Dioxide Level 25 mmol/L (21-32) Anion Gap 9 (6-14) Blood Urea Nitrogen 27 mg/dL (7-20) Creatinine 0.8 mg/dL (0.6-1.0) Estimated GFR (Cockcroft-Gault) 71.8 Glucose Level 111 mg/dL (70-99) Calcium Level 8.9 mg/dL (8.5-10.1) Glucose (Fingerstick) 115 mg/dL (70-99) Laboratory Tests Test 05/31/17 10:47 05/31/17 17:00 05/31/17 20:49 06/01/17 05:15 Glucose (Fingerstick) 109 mg/dL (70-99) 136 mg/dL (70-99) 155 mg/dL (70-99) Sodium Level 128 mmol/L (136-145) Potassium Level 4.7 mmol/L (3.5-5.1) Chloride Level 94 mmol/L (98-107) Carbon Dioxide Level 25 mmol/L (21-32) Anion Gap 9 (6-14) Blood Urea Nitrogen 27 mg/dL (7-20) Creatinine 0.8 mg/dL (0.6-1.0) Estimated GFR (Cockcroft-Gault) 71.8 Glucose Level 111 mg/dL (70-99) Calcium Level 8.9 mg/dL (8.5-10.1) Test 06/01/17 07:38 Glucose (Fingerstick) 115 mg/dL (70-99) Microbiology 05/26/17 Blood Culture - Final, Complete NO GROWTH AFTER 5 DAYS 05/26/17 Urine Culture - Final, Complete 05/26/17 Urine Culture Result 1 (ADELAIDA) - Final, Complete Medications Current Medications Fentanyl Citrate (Fentanyl 2ml Vial) 25 mcg PRN Q15MIN PRN IV PAIN GREATER THAN 3/10 Last administered on 05/26/17 22:56; Start 05/26/17 at 12:45; Stop 05/27/17 at 12:44; Status DC Sodium Chloride 1,000 ml @ 1,000 mls/hr 1X ONCE IV Last administered on 14:40; Start 05/26/17 at 14:30; Stop 05/26/17 at 15:29; Status DC Clindamycin Phosphate 50 ml @ 100 mls/hr 1X ONCE IV Last administered on 05/26 14:46; Start 05/26/17 at 15:00; Stop 05/26/17 at 15:29; Status DC Sodium Chloride 1,000 ml @ 1,000 mls/hr 1X ONCE IV Last administered on 18:19; Start 05/26/17 at 16:00; Stop 05/26/17 at 16:59; Status DC Sodium Chloride 1,000 ml @ 1,770 mls/hr Q34M IV Last administered on 18:28; Start 05/26/17 at 17:00; Stop 05/26/17 at 18:00; Status DC Norepinephrine Bitartrate 250 ml @ 0 mls/hr CONT PRN IV SEE I/O RECORD Last administered on 05/26/17 18:19; Start 05/26/17 at 18:15; Stop 05/27/17 at 20: 35; Status DC Linezolid 300 ml @ 300 mls/hr Q12HR IV Last administered on 05/28/17 21:25; Start 05/26/17 at 21:00; Stop 05/29/17 at 08:25; Status DC Cefepime HCl 1 gm/ Dextrose 50 ml @ 100 mls/hr Q12HR IV ; Start 05/26/17 at 21: 00; Status UNV Cefepime HCl (Maxipime) 1 gm Q12H IVP Last administered on 05/28/17 19:39; Start 05/26/17 at 20:00; Stop 05/29/17 at 08:25; Status DC Ondansetron HCl (Zofran) 4 mg PRN Q8HRS PRN IV NAUSEA/VOMITING; Start 05/26/17 at 21:00; Stop 05/27/17 at 20:59; Status DC Bisacodyl (Dulcolax Tab) 10 mg PRN DAILY PRN PO CONSTIPATION; Start 05/27/17 at 08:45 Ferrous Sulfate (Feosol) 325 mg DAILYWBKFT PO Last administered on 05/31/17 08:49; Start 05/27/17 at 09:00 Haloperidol (Haldol) 5 mg DAILY16 PO Last administered on 05/31/17 14:48; Start 05/27/17 at 16:00 Acetaminophen/ Hydrocodone Bitart (Lortab 5/325) 1 tab PRN Q4HRS PRN PO PAIN Last administered on 05/31/17 16:15; Start 05/27/17 at 08:45 Levothyroxine Sodium (Synthroid) 125 mcg DAILY07 PO Last administered on 06:34; Start 05/28/17 at 07:00 Lidocaine (Lidoderm) 3 patch PRN DAILY PRN TD TOPICAL PAIN Last administered on 05/28/17 09:00; Start 05/27/17 at 08:45 Lisinopril (Prinivil) 20 mg DAILY08 PO Last administered on 05/31/17 11:02; Start 05/27/17 at 09:00 Nystatin (Mycostatin) 1 eusebio BID TP Last administered on 05/31/17 20:09; Start 05/27/17 at 09:00 Pioglitazone HCl (Actos) 15 mg DAILY PO Last administered on 05/31/17 08:50; Start 05/27/17 at 09:00 Tamsulosin HCl (Flomax) 0.4 mg QHS PO Last administered on 05/31/17 20:07; Start 05/27/17 at 21:00 Atorvastatin Calcium (Lipitor) 40 mg QHS PO Last administered on 05/31/17 20: 08; Start 05/27/17 at 21:00 Vitamin D (Vitamin D3) 500 unit DAILY PO Last administered on 05/31/17 08:49 ; Start 05/27/17 at 09:00 Exenatide (Byetta) 10 mcg BIDBFRMEAL SQ Last administered on 05/31/17 17:13; Start 05/27/17 at 16:30 Budesonide (Pulmicort) 0.5 mg RTBID NEB Last administered on 05/31/17 19:43; Start 05/27/17 at 09:00 Meloxicam (Mobic) 15 mg DAILY PO Last administered on 05/31/17 08:49; Start 05/27/17 at 09:00 Pantoprazole Sodium (Protonix) 40 mg DAILYAC PO Last administered on 08:50; Start 05/27/17 at 11:30 Oxycodone/ Acetaminophen (Percocet 7.5/ 325) 1 tab PRN Q4HRS PRN PO PAIN Last administered on 05/31/17 06:38; Start 05/27/17 at 08:45 Ropinirole HCl (Requip) 0.5 mg TID PO Last administered on 05/31/17 20:07; Start 05/27/17 at 09:00 Acyclovir (Zovirax) 200 mg [id number] PO Last administered on 05/31/17 20:11; Start 05/27/17 at 09:00 Vitamin E 1,000 unit DAILY PO Last administered on 05/31/17 08:51; Start 04/03 at 09:00 Metoprolol Tartrate (Lopressor) 12.5 mg BID PO Last administered on 05/31/17 20:08; Start 05/27/17 at 09:00 Fluconazole/ Sodium Chloride 100 ml @ 100 mls/hr Q24H IV Last administered on 05/28/17 09:06; Start 05/27/17 at 10:00; Stop 05/29/17 at 08:25; Status DC Lactobacillus Rhamnosus (Culturelle) 1 cap BID PO Last administered on 20:08; Start 05/27/17 at 21:00 Hydroxyzine Pamoate (Vistaril) 25 mg PRN Q6HRS PRN PO ITCHING Last administered on 05/31/17 02:01; Start 05/28/17 at 08:45 Lidocaine HCl (Xylocaine-Mpf 1% Vial) 2 ml 1X PRN PRN ID FOR PIC LINE INSERTION ; Start 05/28/17 at 09:45; Stop 05/29/17 at 09:44; Status DC Sodium Chloride (Normal Saline Flush) 20 ml 1X PRN PRN IV PER PROTOCOL; Start 05/28/17 at 09:45; Stop 05/29/17 at 09:44; Status DC Lidocaine/ Prilocaine (Emla) 1 eusebio 1X ONCE TP ; Start 05/28/17 at 09:45; Stop 05/28/17 at 09:49; Status DC Gadobutrol (Gadavist) 7 mmol 1X ONCE IV ; Start 05/28/17 at 16:45; Stop 05/28 at 16:46; Status DC Gadobutrol (Gadavist) 7 mmol 1X ONCE IV ; Start 05/28/17 at 16:45; Stop 05/28 at 16:46; Status DC Cefpodoxime Proxetil (Vantin) 200 mg BID PO Last administered on 05/31/17 20: 07; Start 05/29/17 at 09:00 Fluconazole (Diflucan) 200 mg DAILY PO Last administered on 05/31/17 08:52; Start 05/29/17 at 09:00 Sodium Chloride 1,000 ml @ 60 mls/hr [id number] IV Last administered on 17:00; Start 05/29/17 at 15:00 Vitamin A/Vitamin D (Vitamin A & D Ointment) 1 eusebio BID TP Last administered on 05/31/17 20:10; Start 05/30/17 at 10:45 Vitamin A/Vitamin D (Vitamin A & D Ointment) 1 eusebio PRN Q1HR PRN TP SKIN PROTECTION; Start 05/30/17 at 10:45 Furosemide (Lasix) 40 mg 1X ONCE IVP Last administered on 05/31/17 08:56; Start 05/31/17 at 08:30; Stop 05/31/17 at 08:31; Status DC Furosemide (Lasix) 40 mg 1X ONCE IVP ; Start 06/01/17 at 09:00; Stop at 09:01; Status DC Active Scripts Active Citroma (Magnesium Citrate) 296 Ml Solution 296 Ml PO PRN 1X PRN 10 Days Synthroid (Levothyroxine Sodium) 100 Mcg Tablet 100 Mcg PO DAILY07 30 Days Lidocaine 1 Each Adh..patch 3 Patch TD PRN DAILY PRN 30 Days Nystatin 15 Gm Cream..g. 1 Eusebio TP BID 14 Days Flomax (Tamsulosin Hcl) 0.4 Mg Cap.er.24h 0.4 Mg PO QHS 30 Days Hydrocodone-Apap 5-325 (Hydrocodone Bit/Acetaminophen) 1 Each Tablet 1 Tab PO PRN Q4HRS PRN 30 Days Bisacodyl 5 Mg Tablet.dr 10 Mg PO PRN DAILY PRN 30 Days Feosol (Ferrous Sulfate) 325 Mg Tablet 325 Mg PO DAILYWBKFT 30 Days [Metoprolol Tartrate] 25 MG Tablet 12.5 Mg PO BID Reported Oxycodon-Acetaminophen 2.5-325 (Oxycodone Hcl/Acetaminophen) 1 Each Tablet 1 Each PO PRN Q6HRS PRN Proair Hfa Inhaler (Albuterol Sulfate) 8.5 Gm Hfa.aer.ad 1 Puff INH PRN Q6HRS PRN Actos (Pioglitazone Hcl) 15 Mg Tablet 15 Mg PO DAILY Trulicity (Dulaglutide) 0.75 Mg/0.5 Ml Pen.injctr 0.75 Mg SQ Requip (Ropinirole Hcl) 0.5 Mg Tablet 0.5 Mg PO BID Vitamin D3 (Cholecalciferol (Vitamin D3)) 400 Unit Tablet 400 Unit PO DAILY Brovana (Arformoterol Tartrate) 15 Mcg/2 Ml Vial.neb 15 Mcg IH Flovent 220MCG Hfa (Fluticasone Propionate) 12 Gm Aer.w.adap 12 Gm IH Vitamin E 1,000 Unit Capsule 1,000 Unit PO Haloperidol 5 Mg Tablet 5 Mg PO Lipitor (Atorvastatin Calcium) 80 Mg Tablet 80 Mg PO Valacyclovir (Valacyclovir Hcl) 1,000 Mg Tablet 1,000 Mg PO Oxybutynin Chloride 5 Mg Tablet 5 Mg PO Lisinopril 10 Mg Tablet 20 Mg PO Meloxicam 15 Mg Tablet 15 Mg PO Prilosec (Omeprazole) 10 Mg Capsule.dr 20 Mg PO Vitals/I & O Vital Sign - Last 24 Hours 05/31/17 05/31/17 05/31/17 05/31/17 11:00 11:02 15:00 16:15 Temp 97.6 97.6 97.6 97.6 Pulse 81 89 77 Resp 20 20 B/P (MAP) 134/53 (80) 134/53 135/62 (86) Pulse Ox 97 99 99 O2 Delivery Nasal Cannula Nasal Cannula Nasal Cannula O2 Flow Rate 3.0 3.0 3.0 05/31/17 05/31/17 05/31/17 05/31/17 17:15 19:05 19:20 19:45 Temp 97.4 97.4 Pulse 90 Resp 19 B/P (MAP) 119/61 (80) Pulse Ox 99 98 99 O2 Delivery Nasal Cannula Nasal Cannula Nasal Cannula Nasal Cannula O2 Flow Rate 3.0 2.0 3.0 3.0 05/31/17 05/31/17 06/01/17 06/01/17 20:08 23:05 03:10 07:00 Temp 97.8 98.1 97.6 97.8 98.1 97.6 Pulse 90 88 109 82 Resp 20 18 20 B/P (MAP) 119/61 150/66 (94) 136/60 (85) 138/67 (90) Pulse Ox 97 97 98 O2 Delivery Nasal Cannula Nasal Cannula Nasal Cannula O2 Flow Rate 2.0 2.0 2.0 Intake and Output 05/31/17 05/31/17 06/01/17 15:00 23:00 07:00 Intake Total 250 ml 1250 ml 600 ml Output Total 450 ml 2175 ml 1050 ml Balance -200 ml -925 ml -450 ml CASSIDY ORNELAS MD Jun 01, 2017 09:09
[2017-06-01] MEDS: VITAMIN E 200 UNIT CAPSULE. PO SCH (09:20)
[2017-06-01] MEDS: LEVOTHYROXINE 100 MCG TABLET PO SCH (09:20)
[2017-06-01] MEDS: MELOXICAM 7.5 MG TABLET PO SCH (09:21)
[2017-06-01] MEDS: CEFPODOXIME PROXETIL 100 MG TABLET. PO SCH ×2 (09:21→20:44)
[2017-06-01] MEDS: LACTOBACILLUS RHAMNOSUS GG 1 CAPSULE. PO SCH ×2 (09:22→20:44)
[2017-06-01] MEDS: FLUCONAZOLE 100 MG TABLET. PO SCH (09:22)
[2017-06-01] MEDS: ACYCLOVIR 200 MG CAPSULE. PO SCH ×3 (09:22→20:43)
[2017-06-01] MEDS: CHOLECALCIFEROL (VITAMIN D3) 1,000 UNIT TABLET PO SCH (09:24)
[2017-06-01] MEDS: METOPROLOL TART IMMED RELEASE 25 MG TABLET. PO SCH ×2 (09:24→20:43)
[2017-06-01] MEDS: LISINOPRIL 10 MG TABLET PO SCH (09:28)
[2017-06-01] MEDS: FERROUS SULFATE 325 MG TABLET. PO SCH (09:28)
[2017-06-01] MEDS: PIOGLITAZONE 15 MG TABLET. PO SCH (09:29)
[2017-06-01] MEDS: rOPINIRole 0.25 MG TABLET. PO SCH ×3 (09:29→20:44)
[2017-06-01] MEDS: HYDROcodone/APAP 5/325MG 1 TAB TABLET PO PRN (09:29)
[2017-06-01] MEDS: PANTOPRAZOLE 40 MG TABLET.DR. PO SCH (09:29)
[2017-06-01] MEDS: NYSTATIN 100,000 UNIT/GM TOPICAL CREAM 15GM TUBE. TP SCH ×2 (09:37→20:44)
[2017-06-01] MEDS: VITS A & D/LANOLIN TOPICAL OINTMENT 56GM TUBE. TP SCH ×2 (09:37→20:44)
[2017-06-01] MEDS: EXENATIDE 10 MCG/0.04 ML 2.4ML PEN.INJCTR. SQ SCH ×2 (09:47→16:59)
[2017-06-01] MEDS: HALOPERIDOL 5 MG TABLET. PO SCH (16:56)
--- NOTE | 2017-06-01 17:47 | PDOC ---
PROGRESS NOTES Subjective Back pain better, skin infection better, sodium better but still low, now some SOA so could be developing CHF from saline replacement but she also has COPD. Afib persisting per monitor, rate around 100, cardiology following, not a good anti-coagulant candidate due to fall risk. IR declined kyphoplasty due to skin infection, itching has improved Objective Afebrile General: alert, bed made into chair position Heart: irreg, irreg with rate about 100 Lungs: crackles, no wheezes Abd: obese, non tender Ext: legs with less erythema, bruising right upper chest and neck from fall [employer] Vital Signs Vital Signs Date Time Temp Pulse Resp B/P (MAP) Pulse Ox O2 Delivery O2 Flow Rate FiO2 06/01/17 16:07 97.8 89 20 129/71 (90) 98 Nasal Cannula 2.0 97.8 I & O Intake and Output 06/01/17 07:00 Intake Total 2100 ml Output Total 3675 ml Balance -1575 ml Intake Oral 1500 ml IV Total 600 ml Output Urine Total 3675 ml # Bowel Movements 1 Assessment and Plan 1. Sepsis with increased leukocytosis, hypotension and abnormal urinalysis - resolved, urine culture negative so likely from skin source, improving, now on po antibiotics and po yeast meds 2. Hyponatremia, slowly improving with IV saline, IV lasix and fluid restriction but she is still drinking a lot of water 3. Acute ( new L3 compression fracture) on chronic back pain with a recent L4- 5 lumbar laminectomy, IR will not do procedure due to infection risk. She has been denies LTAC and has a unaffordable co-pay for SNU, will need to be strong enough to ambulate and transfer prior to discharging home with HH 4. New onset atrial fibrillation, rate controlled, on ASA as fall risk. 5. Hypothyroidism, undertreated - dose increased. 6. Type 2 diabetes, controlled. 7. Schizophrenia, paranoid type, drinking a lot of water so will fluid restrict. 8. Acute renal failure from dehydration and likely tubular necrosis, improved with hydration. 9. Sacral decubitus ulcer present on admission. 10. cellulitis of lower extremities, improving with antibiotics 11. myelodysplasia, asplenic 12. RADHA - resolving 13. yeast dermatitis - continue meds 14. extremity edema - prn IV lasix Problems: Prosper MEEHAN MD Jun 01, 2017 17:47
[2017-06-01] MEDS: ATORVASTATIN CALCIUM 40 MG TABLET. PO SCH (20:44)
[2017-06-01] MEDS: TAMSULOSIN 0.4 MG CAP.ER.24H. PO SCH (20:44)
[2017-06-01] MEDS: oxyCODONE/APAP 7.5/325 1 TAB TABLET PO PRN (23:35)
[2017-06-02] MEDS: LEVOTHYROXINE 100 MCG TABLET PO SCH (02:45)
[2017-06-02] MEDS: HYDROcodone/APAP 5/325MG 1 TAB TABLET PO PRN (02:45)
[2017-06-02 03:30] VITALS: BP 111/49
[2017-06-02 06:05] LABS: CALCIUM 8.8 mg/dL (8.5-10.1); CREATININE 0.8 mg/dL (0.6-1.0); GFR 71.8; POTASSIUM 4.3 mmol/L (3.5-5.1)
[2017-06-02 07:00] VITALS: BP 155/57
[2017-06-02] MEDS: BUDESONIDE 0.5 MG/2 ML NEBU. NEB SCH ×2 (08:02→19:46)
[2017-06-02] MEDS: NYSTATIN 100,000 UNIT/GM TOPICAL CREAM 15GM TUBE. TP SCH ×2 (09:00→21:00)
[2017-06-02] MEDS: VITAMIN E 200 UNIT CAPSULE. PO SCH (10:11)
[2017-06-02] MEDS: CEFPODOXIME PROXETIL 100 MG TABLET. PO SCH ×2 (10:11→21:01)
[2017-06-02] MEDS: ACYCLOVIR 200 MG CAPSULE. PO SCH ×3 (10:11→21:01)
[2017-06-02] MEDS: rOPINIRole 0.25 MG TABLET. PO SCH ×3 (10:11→21:01)
[2017-06-02] MEDS: CHOLECALCIFEROL (VITAMIN D3) 1,000 UNIT TABLET PO SCH (10:12)
[2017-06-02] MEDS: FLUCONAZOLE 100 MG TABLET. PO SCH (10:12)
[2017-06-02] MEDS: FERROUS SULFATE 325 MG TABLET. PO SCH (10:12)
[2017-06-02] MEDS: LISINOPRIL 10 MG TABLET PO SCH (10:12)
[2017-06-02] MEDS: PIOGLITAZONE 15 MG TABLET. PO SCH (10:12)
[2017-06-02] MEDS: PANTOPRAZOLE 40 MG TABLET.DR. PO SCH (10:13)
[2017-06-02] MEDS: METOPROLOL TART IMMED RELEASE 25 MG TABLET. PO SCH ×2 (10:13→21:02)
[2017-06-02] MEDS: MELOXICAM 7.5 MG TABLET PO SCH (10:13)
[2017-06-02] MEDS: LACTOBACILLUS RHAMNOSUS GG 1 CAPSULE. PO SCH ×2 (10:13→21:01)
[2017-06-02] MEDS: EXENATIDE 10 MCG/0.04 ML 2.4ML PEN.INJCTR. SQ SCH ×2 (10:16→17:10)
[2017-06-02] MEDS: VITS A & D/LANOLIN TOPICAL OINTMENT 56GM TUBE. TP SCH ×2 (10:20→21:00)
[2017-06-02 11:03] VITALS: BP 134/55
--- NOTE | 2017-06-02 12:36 | PDOC ---
PROGRESS NOTES Subjective Subjective No new complaints. Objective Objective Vital Signs Date Time Temp Pulse Resp B/P (MAP) Pulse Ox O2 Delivery O2 Flow Rate FiO2 06/02/17 11:03 97.6 109 21 134/55 (81) 96 Nasal Cannula 2.0 97.6 Intake and Output 06/02/17 07:00 Intake Total 2350 ml Output Total 2975 ml Balance -625 ml Intake Oral 2350 ml Output Urine Total 2975 ml Physical Exam Physical Exam She is comfortable sitting in bedside chair and she is doing better with her mobility and participating with therapy. Assessment Assessment Problems Medical Problems: (1) Hypotension Status: Acute Plan Plan of Snf with home health follow up when medically stable. Comment Review of Relevant I have reviewed the following items hitesh (where applicable) has been applied. Labs Laboratory Tests Test 05/31/17 17:00 05/31/17 20:49 06/01/17 05:15 06/01/17 07:38 Glucose (Fingerstick) 136 mg/dL (70-99) 155 mg/dL (70-99) 115 mg/dL (70-99) Sodium Level 128 mmol/L (136-145) Potassium Level 4.7 mmol/L (3.5-5.1) Chloride Level 94 mmol/L (98-107) Carbon Dioxide Level 25 mmol/L (21-32) Anion Gap 9 (6-14) Blood Urea Nitrogen 27 mg/dL (7-20) Creatinine 0.8 mg/dL (0.6-1.0) Estimated GFR (Cockcroft-Gault) 71.8 Glucose Level 111 mg/dL (70-99) Calcium Level 8.9 mg/dL (8.5-10.1) Test 06/01/17 11:01 06/01/17 17:01 06/01/17 20:42 06/02/17 04:45 Glucose (Fingerstick) 151 mg/dL (70-99) 122 mg/dL (70-99) 188 mg/dL (70-99) Sodium Level 130 mmol/L (136-145) Potassium Level 4.3 mmol/L (3.5-5.1) Chloride Level 95 mmol/L (98-107) Carbon Dioxide Level 27 mmol/L (21-32) Anion Gap 8 (6-14) Blood Urea Nitrogen 19 mg/dL (7-20) Creatinine 0.8 mg/dL (0.6-1.0) Estimated GFR (Cockcroft-Gault) 71.8 Glucose Level 96 mg/dL (70-99) Calcium Level 8.8 mg/dL (8.5-10.1) Test 06/02/17 08:13 06/02/17 11:58 Glucose (Fingerstick) 102 mg/dL (70-99) 125 mg/dL (70-99) Laboratory Tests Test 06/01/17 17:01 06/01/17 20:42 06/02/17 04:45 06/02/17 08:13 Glucose (Fingerstick) 122 mg/dL (70-99) 188 mg/dL (70-99) 102 mg/dL (70-99) Sodium Level 130 mmol/L (136-145) Potassium Level 4.3 mmol/L (3.5-5.1) Chloride Level 95 mmol/L (98-107) Carbon Dioxide Level 27 mmol/L (21-32) Anion Gap 8 (6-14) Blood Urea Nitrogen 19 mg/dL (7-20) Creatinine 0.8 mg/dL (0.6-1.0) Estimated GFR (Cockcroft-Gault) 71.8 Glucose Level 96 mg/dL (70-99) Calcium Level 8.8 mg/dL (8.5-10.1) Test 06/02/17 11:58 Glucose (Fingerstick) 125 mg/dL (70-99) Microbiology 05/26/17 Blood Culture - Final, Complete NO GROWTH AFTER 5 DAYS 05/26/17 Urine Culture - Final, Complete 05/26/17 Urine Culture Result 1 (ADELAIDA) - Final, Complete Medications Current Medications Fentanyl Citrate (Fentanyl 2ml Vial) 25 mcg PRN Q15MIN PRN IV PAIN GREATER THAN 3/10 Last administered on 05/26/17 22:56; Start 05/26/17 at 12:45; Stop 05/27/17 at 12:44; Status DC Sodium Chloride 1,000 ml @ 1,000 mls/hr 1X ONCE IV Last administered on 14:40; Start 05/26/17 at 14:30; Stop 05/26/17 at 15:29; Status DC Clindamycin Phosphate 50 ml @ 100 mls/hr 1X ONCE IV Last administered on 05/26 14:46; Start 05/26/17 at 15:00; Stop 05/26/17 at 15:29; Status DC Sodium Chloride 1,000 ml @ 1,000 mls/hr 1X ONCE IV Last administered on 18:19; Start 05/26/17 at 16:00; Stop 05/26/17 at 16:59; Status DC Sodium Chloride 1,000 ml @ 1,770 mls/hr Q34M IV Last administered on 18:28; Start 05/26/17 at 17:00; Stop 05/26/17 at 18:00; Status DC Norepinephrine Bitartrate 250 ml @ 0 mls/hr CONT PRN IV SEE I/O RECORD Last administered on 05/26/17 18:19; Start 05/26/17 at 18:15; Stop 05/27/17 at 20: 35; Status DC Linezolid 300 ml @ 300 mls/hr Q12HR IV Last administered on 05/28/17 21:25; Start 05/26/17 at 21:00; Stop 05/29/17 at 08:25; Status DC Cefepime HCl 1 gm/ Dextrose 50 ml @ 100 mls/hr Q12HR IV ; Start 05/26/17 at 21: 00; Status UNV Cefepime HCl (Maxipime) 1 gm Q12H IVP Last administered on 05/28/17 19:39; Start 05/26/17 at 20:00; Stop 05/29/17 at 08:25; Status DC Ondansetron HCl (Zofran) 4 mg PRN Q8HRS PRN IV NAUSEA/VOMITING; Start 05/26/17 at 21:00; Stop 05/27/17 at 20:59; Status DC Bisacodyl (Dulcolax Tab) 10 mg PRN DAILY PRN PO CONSTIPATION; Start 05/27/17 at 08:45 Ferrous Sulfate (Feosol) 325 mg DAILYWBKFT PO Last administered on 06/02/17 10:12; Start 05/27/17 at 09:00 Haloperidol (Haldol) 5 mg DAILY16 PO Last administered on 06/01/17 16:56; Start 05/27/17 at 16:00 Acetaminophen/ Hydrocodone Bitart (Lortab 5/325) 1 tab PRN Q4HRS PRN PO PAIN Last administered on 06/02/17 02:45; Start 05/27/17 at 08:45 Levothyroxine Sodium (Synthroid) 125 mcg DAILY07 PO Last administered on 02:45; Start 05/28/17 at 07:00 Lidocaine (Lidoderm) 3 patch PRN DAILY PRN TD TOPICAL PAIN Last administered on 05/28/17 09:00; Start 05/27/17 at 08:45 Lisinopril (Prinivil) 20 mg DAILY08 PO Last administered on 06/02/17 10:12; Start 05/27/17 at 09:00 Nystatin (Mycostatin) 1 eusebio BID TP Last administered on 06/02/17 09:00; Start 05/27/17 at 09:00 Pioglitazone HCl (Actos) 15 mg DAILY PO Last administered on 06/02/17 10:12; Start 05/27/17 at 09:00 Tamsulosin HCl (Flomax) 0.4 mg QHS PO Last administered on 06/01/17 20:44; Start 05/27/17 at 21:00 Atorvastatin Calcium (Lipitor) 40 mg QHS PO Last administered on 06/01/17 20: 44; Start 05/27/17 at 21:00 Vitamin D (Vitamin D3) 500 unit DAILY PO Last administered on 06/02/17 10:12 ; Start 05/27/17 at 09:00 Exenatide (Byetta) 10 mcg [id number] SQ Last administered on 06/02/17 10:16; Start 05/27/17 at 16:30 Budesonide (Pulmicort) 0.5 mg RTBID NEB Last administered on 06/02/17 08:02; Start 05/27/17 at 09:00 Meloxicam (Mobic) 15 mg DAILY PO Last administered on 06/02/17 10:13; Start 05/27/17 at 09:00 Pantoprazole Sodium (Protonix) 40 mg DAILYAC PO Last administered on 10:13; Start 05/27/17 at 11:30 Oxycodone/ Acetaminophen (Percocet 7.5/ 325) 1 tab PRN Q4HRS PRN PO PAIN Last administered on 06/01/17 23:35; Start 05/27/17 at 08:45 Ropinirole HCl (Requip) 0.5 mg TID PO Last administered on 06/02/17 10:11; Start 05/27/17 at 09:00 Acyclovir (Zovirax) 200 mg [id number] PO Last administered on 06/02/17 10:11; Start 05/27/17 at 09:00 Vitamin E 1,000 unit DAILY PO Last administered on 06/02/17 10:11; Start 04/03 at 09:00 Metoprolol Tartrate (Lopressor) 12.5 mg BID PO Last administered on 06/02/17 10:13; Start 05/27/17 at 09:00 Fluconazole/ Sodium Chloride 100 ml @ 100 mls/hr Q24H IV Last administered on 05/28/17 09:06; Start 05/27/17 at 10:00; Stop 05/29/17 at 08:25; Status DC Lactobacillus Rhamnosus (Culturelle) 1 cap BID PO Last administered on 10:13; Start 05/27/17 at 21:00 Hydroxyzine Pamoate (Vistaril) 25 mg PRN Q6HRS PRN PO ITCHING Last administered on 05/31/17 02:01; Start 05/28/17 at 08:45 Lidocaine HCl (Xylocaine-Mpf 1% Vial) 2 ml 1X PRN PRN ID FOR PIC LINE INSERTION ; Start 05/28/17 at 09:45; Stop 05/29/17 at 09:44; Status DC Sodium Chloride (Normal Saline Flush) 20 ml 1X PRN PRN IV PER PROTOCOL; Start 05/28/17 at 09:45; Stop 05/29/17 at 09:44; Status DC Lidocaine/ Prilocaine (Emla) 1 eusebio 1X ONCE TP ; Start 05/28/17 at 09:45; Stop 05/28/17 at 09:49; Status DC Gadobutrol (Gadavist) 7 mmol 1X ONCE IV ; Start 05/28/17 at 16:45; Stop 05/28 at 16:46; Status DC Gadobutrol (Gadavist) 7 mmol 1X ONCE IV ; Start 05/28/17 at 16:45; Stop 05/28 at 16:46; Status DC Cefpodoxime Proxetil (Vantin) 200 mg BID PO Last administered on 06/02/17 10: 11; Start 05/29/17 at 09:00 Fluconazole (Diflucan) 200 mg DAILY PO Last administered on 06/02/17 10:12; Start 05/29/17 at 09:00 Sodium Chloride 1,000 ml @ 60 mls/hr [id number] IV Last administered on 16:58; Start 05/29/17 at 15:00 Vitamin A/Vitamin D (Vitamin A & D Ointment) 1 eusebio BID TP Last administered on 06/02/17 10:20; Start 05/30/17 at 10:45 Vitamin A/Vitamin D (Vitamin A & D Ointment) 1 eusebio PRN Q1HR PRN TP SKIN PROTECTION; Start 05/30/17 at 10:45 Furosemide (Lasix) 40 mg 1X ONCE IVP Last administered on 05/31/17 08:56; Start 05/31/17 at 08:30; Stop 05/31/17 at 08:31; Status DC Furosemide (Lasix) 40 mg 1X ONCE IVP Last administered on 06/01/17 09:43; Start 06/01/17 at 09:00; Stop 06/01/17 at 09:01; Status DC Active Scripts Active Citroma (Magnesium Citrate) 296 Ml Solution 296 Ml PO PRN 1X PRN 10 Days Synthroid (Levothyroxine Sodium) 100 Mcg Tablet 100 Mcg PO DAILY07 30 Days Lidocaine 1 Each Adh..patch 3 Patch TD PRN DAILY PRN 30 Days Nystatin 15 Gm Cream..g. 1 Eusebio TP BID 14 Days Flomax (Tamsulosin Hcl) 0.4 Mg Cap.er.24h 0.4 Mg PO QHS 30 Days Hydrocodone-Apap 5-325 (Hydrocodone Bit/Acetaminophen) 1 Each Tablet 1 Tab PO PRN Q4HRS PRN 30 Days Bisacodyl 5 Mg Tablet.dr 10 Mg PO PRN DAILY PRN 30 Days Feosol (Ferrous Sulfate) 325 Mg Tablet 325 Mg PO DAILYWBKFT 30 Days [Metoprolol Tartrate] 25 MG Tablet 12.5 Mg PO BID Reported Oxycodon-Acetaminophen 2.5-325 (Oxycodone Hcl/Acetaminophen) 1 Each Tablet 1 Each PO PRN Q6HRS PRN Proair Hfa Inhaler (Albuterol Sulfate) 8.5 Gm Hfa.aer.ad 1 Puff INH PRN Q6HRS PRN Actos (Pioglitazone Hcl) 15 Mg Tablet 15 Mg PO DAILY Trulicity (Dulaglutide) 0.75 Mg/0.5 Ml Pen.injctr 0.75 Mg SQ Requip (Ropinirole Hcl) 0.5 Mg Tablet 0.5 Mg PO BID Vitamin D3 (Cholecalciferol (Vitamin D3)) 400 Unit Tablet 400 Unit PO DAILY Brovana (Arformoterol Tartrate) 15 Mcg/2 Ml Vial.neb 15 Mcg IH Flovent 220MCG Hfa (Fluticasone Propionate) 12 Gm Aer.w.adap 12 Gm IH Vitamin E 1,000 Unit Capsule 1,000 Unit PO Haloperidol 5 Mg Tablet 5 Mg PO Lipitor (Atorvastatin Calcium) 80 Mg Tablet 80 Mg PO Valacyclovir (Valacyclovir Hcl) 1,000 Mg Tablet 1,000 Mg PO Oxybutynin Chloride 5 Mg Tablet 5 Mg PO Lisinopril 10 Mg Tablet 20 Mg PO Meloxicam 15 Mg Tablet 15 Mg PO Prilosec (Omeprazole) 10 Mg Capsule.dr 20 Mg PO Vitals/I & O Vital Sign - Last 24 Hours 06/01/17 06/01/17 06/01/17 06/01/17 15:00 16:07 19:10 20:00 Temp 97.8 97.8 97.7 97.8 97.8 97.7 Pulse 84 89 95 Resp 20 20 22 B/P (MAP) 129/71 (90) 129/71 (90) 129/67 (87) Pulse Ox 98 98 100 O2 Delivery Nasal Cannula Nasal Cannula Nasal Cannula Nasal Cannula O2 Flow Rate 2.0 2.0 3.0 2.0 06/01/17 06/01/17 06/01/17 06/01/17 20:43 22:08 23:35 23:50 Temp 97.4 97.4 Pulse 95 82 Resp 20 21 B/P (MAP) 129/67 112/70 (84) Pulse Ox 98 97 O2 Delivery Room Air Nasal Cannula Nasal Cannula O2 Flow Rate 2.0 3.0 06/02/17 06/02/17 06/02/17 06/02/17 00:35 02:45 03:30 03:45 Temp 97.1 97.1 Pulse 89 Resp 18 20 22 20 B/P (MAP) 111/49 (69) Pulse Ox 96 O2 Delivery Nasal Cannula Nasal Cannula Nasal Cannula Nasal Cannula O2 Flow Rate 2.0 2.0 3.0 2.0 06/02/17 06/02/17 06/02/17 06/02/17 07:00 08:00 08:03 10:12 Temp 97.5 97.5 Pulse 79 79 Resp 19 B/P (MAP) 155/57 (89) 155/57 Pulse Ox 98 99 O2 Delivery Nasal Cannula Nasal Cannula Nasal Cannula O2 Flow Rate 2.0 2.0 3.0 06/02/17 06/02/17 10:13 11:03 Temp 97.6 97.6 Pulse 79 109 Resp 21 B/P (MAP) 155/57 134/55 (81) Pulse Ox 96 O2 Delivery Nasal Cannula O2 Flow Rate 2.0 Intake and Output 06/01/17 06/01/17 06/02/17 15:00 23:00 07:00 Intake Total 1050 ml 1100 ml 200 ml Output Total 1950 ml 425 ml 600 ml Balance -900 ml 675 ml -400 ml CASSIDY ORNELAS MD Jun 02, 2017 12:36
--- NOTE | 2017-06-02 13:16 | PDOC ---
SUBJECTIVE Subjective Pt states that she is doing well today. She has no acute complaints other than some muscle pain in her legs. Denies any chest pain or shortness of air. States that she is eating well. OBJECTIVE Vital Signs Vital Signs Date Time Temp Pulse Resp B/P (MAP) Pulse Ox O2 Delivery O2 Flow Rate FiO2 06/02/17 11:03 97.6 109 21 134/55 (81) 96 Nasal Cannula 2.0 97.6 06/02/17 10:13 79 155/57 06/02/17 10:12 79 155/57 06/02/17 08:03 99 Nasal Cannula 3.0 06/02/17 08:00 Nasal Cannula 2.0 06/02/17 07:00 97.5 79 19 155/57 (89) 98 Nasal Cannula 2.0 97.5 06/02/17 03:45 20 Nasal Cannula 2.0 06/02/17 03:30 97.1 89 22 111/49 (69) 96 Nasal Cannula 3.0 97.1 06/02/17 02:45 20 Nasal Cannula 2.0 06/02/17 00:35 18 Nasal Cannula 2.0 06/01/17 23:50 97.4 82 21 112/70 (84) 97 Nasal Cannula 3.0 97.4 06/01/17 23:35 20 Nasal Cannula 2.0 06/01/17 22:08 98 Room Air 06/01/17 20:43 95 129/67 06/01/17 20:00 Nasal Cannula 2.0 06/01/17 19:10 97.7 95 22 129/67 (87) 100 Nasal Cannula 3.0 97.7 06/01/17 16:07 97.8 89 20 129/71 (90) 98 Nasal Cannula 2.0 97.8 06/01/17 15:00 97.8 84 20 129/71 (90) 98 Nasal Cannula 2.0 97.8 I & O Intake and Output 06/02/17 07:00 Intake Total 2350 ml Output Total 2975 ml Balance -625 ml Intake Oral 2350 ml Output Urine Total 2975 ml PHYSICAL EXAM Physical Exam GEN: obese, NAD, AOx3 HEENT: MMM, EOMI, no scleral icterus/injection Cardiac: RRR, no M/R/G Lungs: crackles heard in upper lobes Abd: NTTP, distended Ext: 2+ pitting edema LE bilaterally Neuro: CN2-12 GI ASSESSMENT/PLAN Assessment/Plan Pt is a 66yo CF admitted with sepsis 1. Sepsis with increased leukocytosis, hypotension and abnormal urinalysis - ID following. Urine culture negative so likely from skin source, improving, now on po antibiotics and po yeast meds 2. Hyponatremia, slowly improving with IV saline. Na this morning was 130. Will D/C IVF hydration today as pt's lungs are starting to sound a little more wet 3. Acute ( new L3 compression fracture) on chronic back pain with a recent L4- 5 lumbar laminectomy, IR will not do procedure due to infection risk. She has been denies LTAC and has a unaffordable co-pay for SNU, will need to be strong enough to ambulate and transfer prior to discharging home with HH 4. New onset atrial fibrillation, rate controlled with Metoprolol 12.5mg BID, on ASA as fall risk. 5. Hypothyroidism, undertreated - dose increased to 125mcg Levothyroxine 6. Type 2 diabetes, controlled- pt continued on Actos 15mg and Byetta 10mcg BID 7. Schizophrenia, paranoid type, drinking a lot of water so will fluid restrict - continued on Haldol 5mg 8. Acute renal failure from dehydration and likely tubular necrosis, resolved with hydration. 9. Sacral decubitus ulcer present on admission. 10. cellulitis of lower extremities, improving with antibiotics 11. myelodysplasia, asplenic 12. yeast dermatitis - continue meds 13. HLD- pt continued on Atorvastatin 40mg 14. HTN- moderately controlled on above medications and Lisinopril 20mg. CTM Problems: COMMENT Lab Laboratory Tests Test 06/01/17 17:01 06/01/17 20:42 06/02/17 04:45 06/02/17 08:13 Glucose (Fingerstick) 122 mg/dL (70-99) 188 mg/dL (70-99) 102 mg/dL (70-99) Sodium Level 130 mmol/L (136-145) Potassium Level 4.3 mmol/L (3.5-5.1) Chloride Level 95 mmol/L (98-107) Carbon Dioxide Level 27 mmol/L (21-32) Anion Gap 8 (6-14) Blood Urea Nitrogen 19 mg/dL (7-20) Creatinine 0.8 mg/dL (0.6-1.0) Estimated GFR (Cockcroft-Gault) 71.8 Glucose Level 96 mg/dL (70-99) Calcium Level 8.8 mg/dL (8.5-10.1) Test 06/02/17 11:58 Glucose (Fingerstick) 125 mg/dL (70-99) EUSEBIO DOHERTY MD Jun 02, 2017 13:16
[2017-06-02 15:00] VITALS: BP 149/83
[2017-06-02] MEDS: HALOPERIDOL 5 MG TABLET. PO SCH (17:08)
[2017-06-02 19:20] VITALS: BP 144/79
[2017-06-02] MEDS: oxyCODONE/APAP 7.5/325 1 TAB TABLET PO PRN (19:32)
[2017-06-02] MEDS: LIDOCAINE (700MG/PATCH) PATCH. TD PRN (21:00)
[2017-06-02] MEDS: ATORVASTATIN CALCIUM 40 MG TABLET. PO SCH (21:01)
[2017-06-02] MEDS: TAMSULOSIN 0.4 MG CAP.ER.24H. PO SCH (21:01)
[2017-06-02] MEDS: hydrOXYzine PAMOATE 25 MG CAPSULE PO PRN (21:01)
[2017-06-02 23:38] VITALS: BP 110/51
[2017-06-03] MEDS: hydrOXYzine PAMOATE 25 MG CAPSULE PO PRN ×2 (03:44→23:46)
[2017-06-03 03:50] VITALS: BP 99/62
[2017-06-03 05:52] LABS: BASO # 0.1 x10^3/uL (0.0-0.2); BASO % 1 % (0-3); EOS % 3 % (0-3); HEMATOCRIT 24.7 % (36.0-47.0); HEMOGLOBIN 8.4 g/dL (12.0-15.5); LYMPH # 2.1 x10^3/uL (1.0-4.8); LYMPH % 17 % (24-48); MEAN CORPUSCULAR HEMOGLOBIN 31 pg (25-35); MEAN CORPUSCULAR HGB CONC 34 g/dL (31-37); MEAN CORPUSCULAR VOLUME 91 fL (79-100); MONO % 17 % (0-9); NEUT % 63 % (31-73); PLATELET COUNT 440 x10^3/uL (140-400); RED BLOOD COUNT 2.71 x10^6/uL (3.50-5.40); RED CELL DISTRIBUTION WIDTH 15.4 % (11.5-14.5); WHITE BLOOD COUNT 12.6 x10^3/uL (4.0-11.0)
[2017-06-03 06:10] LABS: CALCIUM 8.6 mg/dL (8.5-10.1); CREATININE 0.8 mg/dL (0.6-1.0); GFR 71.8; POTASSIUM 4.5 mmol/L (3.5-5.1)
[2017-06-03 07:00] VITALS: BP 101/48
[2017-06-03] MEDS: BUDESONIDE 0.5 MG/2 ML NEBU. NEB SCH ×2 (07:38→19:36)
[2017-06-03] MEDS: NYSTATIN 100,000 UNIT/GM TOPICAL CREAM 15GM TUBE. TP SCH ×2 (09:00→20:40)
[2017-06-03 09:30] LABS: % EOS 1 % (0-5); PLT ESTIMATE INCREASED (ADEQUATE)
[2017-06-03 09:31] LABS: ANISOCYTOSIS SLIGHT; HYPOCHROMIA PRESENT; POLYCHROMASIA PRESENT
[2017-06-03 09:32] LABS: TARGET CELLS OCC
[2017-06-03] MEDS: VITS A & D/LANOLIN TOPICAL OINTMENT 56GM TUBE. TP SCH ×2 (09:43→20:40)
[2017-06-03] MEDS: EXENATIDE 10 MCG/0.04 ML 2.4ML PEN.INJCTR. SQ SCH ×2 (09:43→17:50)
[2017-06-03] MEDS: FERROUS SULFATE 325 MG TABLET. PO SCH (09:47)
[2017-06-03] MEDS: METOPROLOL TART IMMED RELEASE 25 MG TABLET. PO SCH ×2 (09:48→20:42)
[2017-06-03] MEDS: PIOGLITAZONE 15 MG TABLET. PO SCH (09:48)
[2017-06-03] MEDS: CHOLECALCIFEROL (VITAMIN D3) 1,000 UNIT TABLET PO SCH (09:48)
[2017-06-03] MEDS: VITAMIN E 200 UNIT CAPSULE. PO SCH (09:49)
[2017-06-03] MEDS: MELOXICAM 7.5 MG TABLET PO SCH (09:49)
[2017-06-03] MEDS: PANTOPRAZOLE 40 MG TABLET.DR. PO SCH (09:49)
[2017-06-03] MEDS: ACYCLOVIR 200 MG CAPSULE. PO SCH ×3 (09:49→20:41)
[2017-06-03] MEDS: LISINOPRIL 10 MG TABLET PO SCH (09:50)
[2017-06-03] MEDS: CEFPODOXIME PROXETIL 100 MG TABLET. PO SCH ×2 (09:50→20:41)
[2017-06-03] MEDS: rOPINIRole 0.25 MG TABLET. PO SCH ×3 (09:50→20:41)
[2017-06-03] MEDS: LACTOBACILLUS RHAMNOSUS GG 1 CAPSULE. PO SCH ×2 (09:50→20:41)
[2017-06-03] MEDS: FLUCONAZOLE 100 MG TABLET. PO SCH (09:50)
[2017-06-03] MEDS: LEVOTHYROXINE 100 MCG TABLET PO SCH (09:57)
[2017-06-03 11:00] VITALS: BP 116/59
--- NOTE | 2017-06-03 11:07 | PDOC ---
SUBJECTIVE Subjective Nursing staff states that the back of pt's legs are starting to get more irritated and chafed. Wound on medial LE is starting to weep more. Wound care hasn't been by this weekend. Pt has no acute complaints. States that pain is about the same. Pt is eating well. Breathing has been good. OBJECTIVE Vital Signs Vital Signs Date Time Temp Pulse Resp B/P (MAP) Pulse Ox O2 Delivery O2 Flow Rate FiO2 06/03/17 09:50 86 101/48 06/03/17 09:48 86 101/48 06/03/17 07:38 Nasal Cannula 3.0 06/03/17 07:00 97.6 86 19 101/48 (65) 98 Nasal Cannula 2.0 97.6 06/03/17 03:50 97.7 76 19 99/62 (74) 95 Nasal Cannula 3.0 97.7 06/02/17 23:38 97.7 70 22 110/51 (70) 98 Nasal Cannula 3.0 97.7 06/02/17 21:02 96 149/83 06/02/17 20:32 22 Room Air 06/02/17 20:00 Nasal Cannula 3.0 06/02/17 19:47 Nasal Cannula 3.0 06/02/17 19:32 22 Nasal Cannula 2.0 06/02/17 19:20 97.7 100 21 144/79 (100) 99 Nasal Cannula 3.0 97.7 06/02/17 15:00 97.1 96 22 149/83 (105) 96 Nasal Cannula 2.0 97.1 06/02/17 11:03 97.6 109 21 134/55 (81) 96 Nasal Cannula 2.0 97.6 I & O Intake and Output 06/03/17 07:00 Intake Total 2253 ml Output Total 1100 ml Balance 1153 ml Intake Oral 1893 ml IV Total 360 ml Output Urine Total 1100 ml # Bowel Movements 1 PHYSICAL EXAM Physical Exam GEN: obese, NAD, AOx3 HEENT: MMM, EOMI, no scleral icterus/injection Cardiac: RRR, no M/R/G Lungs: CTAB, pt appears to be breathing hard at times Abd: NTTP, distended Ext: 2+ pitting edema LE bilaterally Neuro: CN2-12 GI ASSESSMENT/PLAN Assessment/Plan Pt is a 66yo CF admitted with sepsis 1. Sepsis with increased leukocytosis, hypotension and abnormal urinalysis - ID following. Urine culture negative so likely from skin source, improving, now on po antibiotics and po yeast meds. WBC decreased to 12.6 this am. 2. Hyponatremia, slowly improving with IV saline. IVFs DC'd yesterday because her lungs were sounding a little more wet. Na stable at 130 this am. 3. Acute ( new L3 compression fracture) on chronic back pain with a recent L4- 5 lumbar laminectomy, IR will not do procedure due to infection risk. She has been denies LTAC and has a unaffordable co-pay for SNU, will need to be strong enough to ambulate and transfer prior to discharging home with 4. New onset atrial fibrillation, rate controlled with Metoprolol 12.5mg BID, on ASA as fall risk. 5. Hypothyroidism, undertreated - dose increased to 125mcg Levothyroxine 6. Type 2 diabetes, controlled- pt continued on Actos 15mg and Byetta 10mcg BID 7. Schizophrenia, paranoid type, drinking a lot of water so will fluid restrict - continued on Haldol 5mg 8. Acute renal failure from dehydration and likely tubular necrosis, resolved with hydration. 9. Sacral decubitus ulcer present on admission. 10. cellulitis of lower extremities, improving with antibiotics 11. myelodysplasia, asplenic 12. yeast dermatitis - continue meds 13. HLD- pt continued on Atorvastatin 40mg 14. HTN- pt a little more on the lower side today. Will decrease Lisinopril to 10mg this am. Problems: COMMENT Lab Laboratory Tests Test 06/02/17 11:58 06/02/17 16:56 06/02/17 21:08 06/03/17 03:30 Glucose (Fingerstick) 125 mg/dL (70-99) 123 mg/dL (70-99) 125 mg/dL (70-99) White Blood Count 12.6 x10^3/uL (4.0-11.0) Red Blood Count 2.71 x10^6/uL (3.50-5.40) Hemoglobin 8.4 g/dL (12.0-15.5) Hematocrit 24.7 % (36.0-47.0) Mean Corpuscular Volume 91 fL (79-100) Mean Corpuscular Hemoglobin 31 pg (25-35) Mean Corpuscular Hemoglobin Concent 34 g/dL (31-37) Red Cell Distribution Width 15.4 % (11.5-14.5) Platelet Count 440 x10^3/uL (140-400) Neutrophils (%) (Auto) 63 % (31-73) Lymphocytes (%) (Auto) 17 % (24-48) Monocytes (%) (Auto) 17 % (0-9) Eosinophils (%) (Auto) 3 % (0-3) Basophils (%) (Auto) 1 % (0-3) Neutrophils # (Auto) 7.9 x10^3uL (1.8-7.7) Lymphocytes # (Auto) 2.1 x10^3/uL (1.0-4.8) Monocytes # (Auto) 2.1 x10^3/uL (0.0-1.1) Eosinophils # (Auto) 0.4 x10^3/uL (0.0-0.7) Basophils # (Auto) 0.1 x10^3/uL (0.0-0.2) Segmented Neutrophils % 58 % (35-66) Band Neutrophils % 3 % (0-9) Lymphocytes % 21 % (24-48) Monocytes % 14 % (0-10) Eosinophils % 1 % (0-5) Myelocytes % 3 % (0-0) Platelet Estimate Increased (ADEQUATE) Polychromasia Present Hypochromasia Present Anisocytosis Slight Target Cells Occ Sodium Level 130 mmol/L (136-145) Potassium Level 4.5 mmol/L (3.5-5.1) Chloride Level 96 mmol/L (98-107) Carbon Dioxide Level 29 mmol/L (21-32) Anion Gap 5 (6-14) Blood Urea Nitrogen 15 mg/dL (7-20) Creatinine 0.8 mg/dL (0.6-1.0) Estimated GFR (Cockcroft-Gault) 71.8 Glucose Level 88 mg/dL (70-99) Calcium Level 8.6 mg/dL (8.5-10.1) Test 06/03/17 08:01 Glucose (Fingerstick) 97 mg/dL (70-99) EUSEBIO DOHERTY MD Jun 03, 2017 11:07
--- NOTE | 2017-06-03 13:06 | PDOC ---
PROGRESS NOTES Subjective Subjective No new complaints. Objective Objective Vital Signs Date Time Temp Pulse Resp B/P (MAP) Pulse Ox O2 Delivery O2 Flow Rate FiO2 06/03/17 11:00 97.5 60 18 116/59 (78) 99 Nasal Cannula 2.0 97.5 Intake and Output 06/03/17 07:00 Intake Total 2253 ml Output Total 1100 ml Balance 1153 ml Intake Oral 1893 ml IV Total 360 ml Output Urine Total 1100 ml # Bowel Movements 1 Physical Exam Physical Exam She is sitting up in bedside chair and she continues to participate with therapy. Assessment Assessment Problems Medical Problems: (1) Hypotension Status: Acute Plan Plan of Care To home with home health follow up when medically stable. Comment Review of Relevant I have reviewed the following items hitesh (where applicable) has been applied. Labs Laboratory Tests Test 06/01/17 17:01 06/01/17 20:42 06/02/17 04:45 06/02/17 08:13 Glucose (Fingerstick) 122 mg/dL (70-99) 188 mg/dL (70-99) 102 mg/dL (70-99) Sodium Level 130 mmol/L (136-145) Potassium Level 4.3 mmol/L (3.5-5.1) Chloride Level 95 mmol/L (98-107) Carbon Dioxide Level 27 mmol/L (21-32) Anion Gap 8 (6-14) Blood Urea Nitrogen 19 mg/dL (7-20) Creatinine 0.8 mg/dL (0.6-1.0) Estimated GFR (Cockcroft-Gault) 71.8 Glucose Level 96 mg/dL (70-99) Calcium Level 8.8 mg/dL (8.5-10.1) Test 06/02/17 11:58 06/02/17 16:56 06/02/17 21:08 06/03/17 03:30 Glucose (Fingerstick) 125 mg/dL (70-99) 123 mg/dL (70-99) 125 mg/dL (70-99) White Blood Count 12.6 x10^3/uL (4.0-11.0) Red Blood Count 2.71 x10^6/uL (3.50-5.40) Hemoglobin 8.4 g/dL (12.0-15.5) Hematocrit 24.7 % (36.0-47.0) Mean Corpuscular Volume 91 fL (79-100) Mean Corpuscular Hemoglobin 31 pg (25-35) Mean Corpuscular Hemoglobin Concent 34 g/dL (31-37) Red Cell Distribution Width 15.4 % (11.5-14.5) Platelet Count 440 x10^3/uL (140-400) Neutrophils (%) (Auto) 63 % (31-73) Lymphocytes (%) (Auto) 17 % (24-48) Monocytes (%) (Auto) 17 % (0-9) Eosinophils (%) (Auto) 3 % (0-3) Basophils (%) (Auto) 1 % (0-3) Neutrophils # (Auto) 7.9 x10^3uL (1.8-7.7) Lymphocytes # (Auto) 2.1 x10^3/uL (1.0-4.8) Monocytes # (Auto) 2.1 x10^3/uL (0.0-1.1) Eosinophils # (Auto) 0.4 x10^3/uL (0.0-0.7) Basophils # (Auto) 0.1 x10^3/uL (0.0-0.2) Segmented Neutrophils % 58 % (35-66) Band Neutrophils % 3 % (0-9) Lymphocytes % 21 % (24-48) Monocytes % 14 % (0-10) Eosinophils % 1 % (0-5) Myelocytes % 3 % (0-0) Platelet Estimate Increased (ADEQUATE) Polychromasia Present Hypochromasia Present Anisocytosis Slight Target Cells Occ Sodium Level 130 mmol/L (136-145) Potassium Level 4.5 mmol/L (3.5-5.1) Chloride Level 96 mmol/L (98-107) Carbon Dioxide Level 29 mmol/L (21-32) Anion Gap 5 (6-14) Blood Urea Nitrogen 15 mg/dL (7-20) Creatinine 0.8 mg/dL (0.6-1.0) Estimated GFR (Cockcroft-Gault) 71.8 Glucose Level 88 mg/dL (70-99) Calcium Level 8.6 mg/dL (8.5-10.1) Test 06/03/17 08:01 06/03/17 12:09 Glucose (Fingerstick) 97 mg/dL (70-99) 125 mg/dL (70-99) Laboratory Tests Test 06/02/17 16:56 06/02/17 21:08 06/03/17 03:30 06/03/17 08:01 Glucose (Fingerstick) 123 mg/dL (70-99) 125 mg/dL (70-99) 97 mg/dL (70-99) White Blood Count 12.6 x10^3/uL (4.0-11.0) Red Blood Count 2.71 x10^6/uL (3.50-5.40) Hemoglobin 8.4 g/dL (12.0-15.5) Hematocrit 24.7 % (36.0-47.0) Mean Corpuscular Volume 91 fL (79-100) Mean Corpuscular Hemoglobin 31 pg (25-35) Mean Corpuscular Hemoglobin Concent 34 g/dL (31-37) Red Cell Distribution Width 15.4 % (11.5-14.5) Platelet Count 440 x10^3/uL (140-400) Neutrophils (%) (Auto) 63 % (31-73) Lymphocytes (%) (Auto) 17 % (24-48) Monocytes (%) (Auto) 17 % (0-9) Eosinophils (%) (Auto) 3 % (0-3) Basophils (%) (Auto) 1 % (0-3) Neutrophils # (Auto) 7.9 x10^3uL (1.8-7.7) Lymphocytes # (Auto) 2.1 x10^3/uL (1.0-4.8) Monocytes # (Auto) 2.1 x10^3/uL (0.0-1.1) Eosinophils # (Auto) 0.4 x10^3/uL (0.0-0.7) Basophils # (Auto) 0.1 x10^3/uL (0.0-0.2) Segmented Neutrophils % 58 % (35-66) Band Neutrophils % 3 % (0-9) Lymphocytes % 21 % (24-48) Monocytes % 14 % (0-10) Eosinophils % 1 % (0-5) Myelocytes % 3 % (0-0) Platelet Estimate Increased (ADEQUATE) Polychromasia Present Hypochromasia Present Anisocytosis Slight Target Cells Occ Sodium Level 130 mmol/L (136-145) Potassium Level 4.5 mmol/L (3.5-5.1) Chloride Level 96 mmol/L (98-107) Carbon Dioxide Level 29 mmol/L (21-32) Anion Gap 5 (6-14) Blood Urea Nitrogen 15 mg/dL (7-20) Creatinine 0.8 mg/dL (0.6-1.0) Estimated GFR (Cockcroft-Gault) 71.8 Glucose Level 88 mg/dL (70-99) Calcium Level 8.6 mg/dL (8.5-10.1) Test 06/03/17 12:09 Glucose (Fingerstick) 125 mg/dL (70-99) Microbiology 05/26/17 Blood Culture - Final, Complete NO GROWTH AFTER 5 DAYS 05/26/17 Urine Culture - Final, Complete 05/26/17 Urine Culture Result 1 (ADELAIDA) - Final, Complete Medications Current Medications Fentanyl Citrate (Fentanyl 2ml Vial) 25 mcg PRN Q15MIN PRN IV PAIN GREATER THAN 3/10 Last administered on 05/26/17 22:56; Start 05/26/17 at 12:45; Stop 05/27/17 at 12:44; Status DC Sodium Chloride 1,000 ml @ 1,000 mls/hr 1X ONCE IV Last administered on 14:40; Start 05/26/17 at 14:30; Stop 05/26/17 at 15:29; Status DC Clindamycin Phosphate 50 ml @ 100 mls/hr 1X ONCE IV Last administered on 05/26 14:46; Start 05/26/17 at 15:00; Stop 05/26/17 at 15:29; Status DC Sodium Chloride 1,000 ml @ 1,000 mls/hr 1X ONCE IV Last administered on 18:19; Start 05/26/17 at 16:00; Stop 05/26/17 at 16:59; Status DC Sodium Chloride 1,000 ml @ 1,770 mls/hr Q34M IV Last administered on 18:28; Start 05/26/17 at 17:00; Stop 05/26/17 at 18:00; Status DC Norepinephrine Bitartrate 250 ml @ 0 mls/hr CONT PRN IV SEE I/O RECORD Last administered on 05/26/17 18:19; Start 05/26/17 at 18:15; Stop 05/27/17 at 20: 35; Status DC Linezolid 300 ml @ 300 mls/hr Q12HR IV Last administered on 05/28/17 21:25; Start 05/26/17 at 21:00; Stop 05/29/17 at 08:25; Status DC Cefepime HCl 1 gm/ Dextrose 50 ml @ 100 mls/hr Q12HR IV ; Start 05/26/17 at 21: 00; Status UNV Cefepime HCl (Maxipime) 1 gm Q12H IVP Last administered on 05/28/17 19:39; Start 05/26/17 at 20:00; Stop 05/29/17 at 08:25; Status DC Ondansetron HCl (Zofran) 4 mg PRN Q8HRS PRN IV NAUSEA/VOMITING; Start 05/26/17 at 21:00; Stop 05/27/17 at 20:59; Status DC Bisacodyl (Dulcolax Tab) 10 mg PRN DAILY PRN PO CONSTIPATION; Start 05/27/17 at 08:45 Ferrous Sulfate (Feosol) 325 mg DAILYWBKFT PO Last administered on 06/03/17 09:47; Start 05/27/17 at 09:00 Haloperidol (Haldol) 5 mg DAILY16 PO Last administered on 06/02/17 17:08; Start 05/27/17 at 16:00 Acetaminophen/ Hydrocodone Bitart (Lortab 5/325) 1 tab PRN Q4HRS PRN PO PAIN Last administered on 06/02/17 02:45; Start 05/27/17 at 08:45 Levothyroxine Sodium (Synthroid) 125 mcg DAILY07 PO Last administered on 09:57; Start 05/28/17 at 07:00 Lidocaine (Lidoderm) 3 patch PRN DAILY PRN TD TOPICAL PAIN Last administered on 06/02/17 21:00; Start 05/27/17 at 08:45 Lisinopril (Prinivil) 20 mg DAILY08 PO Last administered on 06/03/17 09:50; Start 05/27/17 at 09:00; Stop 06/03/17 at 11:07; Status DC Nystatin (Mycostatin) 1 eusebio BID TP Last administered on 06/02/17 21:00; Start 05/27/17 at 09:00 Pioglitazone HCl (Actos) 15 mg DAILY PO Last administered on 06/03/17 09:48; Start 05/27/17 at 09:00 Tamsulosin HCl (Flomax) 0.4 mg QHS PO Last administered on 06/02/17 21:01; Start 05/27/17 at 21:00 Atorvastatin Calcium (Lipitor) 40 mg QHS PO Last administered on 06/02/17 21: 01; Start 05/27/17 at 21:00 Vitamin D (Vitamin D3) 500 unit DAILY PO Last administered on 06/03/17 09:48 ; Start 05/27/17 at 09:00 Exenatide (Byetta) 10 mcg [id number] SQ Last administered on 06/03/17 09:43; Start 05/27/17 at 16:30 Budesonide (Pulmicort) 0.5 mg RTBID NEB Last administered on 06/03/17 07:38; Start 05/27/17 at 09:00 Meloxicam (Mobic) 15 mg DAILY PO Last administered on 06/03/17 09:49; Start 05/27/17 at 09:00 Pantoprazole Sodium (Protonix) 40 mg DAILYAC PO Last administered on 09:49; Start 05/27/17 at 11:30 Oxycodone/ Acetaminophen (Percocet 7.5/ 325) 1 tab PRN Q4HRS PRN PO PAIN Last administered on 06/02/17 19:32; Start 05/27/17 at 08:45 Ropinirole HCl (Requip) 0.5 mg TID PO Last administered on 06/03/17 09:50; Start 05/27/17 at 09:00 Acyclovir (Zovirax) 200 mg [id number] PO Last administered on 06/03/17 09:49; Start 05/27/17 at 09:00 Vitamin E 1,000 unit DAILY PO Last administered on 06/03/17 09:49; Start 04/03 at 09:00 Metoprolol Tartrate (Lopressor) 12.5 mg BID PO Last administered on 06/03/17 09:48; Start 05/27/17 at 09:00 Fluconazole/ Sodium Chloride 100 ml @ 100 mls/hr Q24H IV Last administered on 05/28/17 09:06; Start 05/27/17 at 10:00; Stop 05/29/17 at 08:25; Status DC Lactobacillus Rhamnosus (Culturelle) 1 cap BID PO Last administered on 09:50; Start 05/27/17 at 21:00 Hydroxyzine Pamoate (Vistaril) 25 mg PRN Q6HRS PRN PO ITCHING Last administered on 06/03/17 03:44; Start 05/28/17 at 08:45 Lidocaine HCl (Xylocaine-Mpf 1% Vial) 2 ml 1X PRN PRN ID FOR PIC LINE INSERTION ; Start 05/28/17 at 09:45; Stop 05/29/17 at 09:44; Status DC Sodium Chloride (Normal Saline Flush) 20 ml 1X PRN PRN IV PER PROTOCOL; Start 05/28/17 at 09:45; Stop 05/29/17 at 09:44; Status DC Lidocaine/ Prilocaine (Emla) 1 eusebio 1X ONCE TP ; Start 05/28/17 at 09:45; Stop 05/28/17 at 09:49; Status DC Gadobutrol (Gadavist) 7 mmol 1X ONCE IV ; Start 05/28/17 at 16:45; Stop 05/28 at 16:46; Status DC Gadobutrol (Gadavist) 7 mmol 1X ONCE IV ; Start 05/28/17 at 16:45; Stop 05/28 at 16:46; Status DC Cefpodoxime Proxetil (Vantin) 200 mg BID PO Last administered on 06/03/17 09: 50; Start 05/29/17 at 09:00 Fluconazole (Diflucan) 200 mg DAILY PO Last administered on 06/03/17 09:50; Start 05/29/17 at 09:00 Sodium Chloride 1,000 ml @ 60 mls/hr [id number] IV Last administered on 16:58; Start 05/29/17 at 15:00; Stop 06/02/17 at 13:14; Status DC Vitamin A/Vitamin D (Vitamin A & D Ointment) 1 eusebio BID TP Last administered on 06/03/17 09:43; Start 05/30/17 at 10:45 Vitamin A/Vitamin D (Vitamin A & D Ointment) 1 eusebio PRN Q1HR PRN TP SKIN PROTECTION; Start 05/30/17 at 10:45 Furosemide (Lasix) 40 mg 1X ONCE IVP Last administered on 05/31/17 08:56; Start 05/31/17 at 08:30; Stop 05/31/17 at 08:31; Status DC Furosemide (Lasix) 40 mg 1X ONCE IVP Last administered on 06/01/17 09:43; Start 06/01/17 at 09:00; Stop 06/01/17 at 09:01; Status DC Lisinopril (Prinivil) 10 mg DAILY08 PO ; Start 06/04/17 at 08:00 Active Scripts Active Citroma (Magnesium Citrate) 296 Ml Solution 296 Ml PO PRN 1X PRN 10 Days Synthroid (Levothyroxine Sodium) 100 Mcg Tablet 100 Mcg PO DAILY07 30 Days Lidocaine 1 Each Adh..patch 3 Patch TD PRN DAILY PRN 30 Days Nystatin 15 Gm Cream..g. 1 Eusebio TP BID 14 Days Flomax (Tamsulosin Hcl) 0.4 Mg Cap.er.24h 0.4 Mg PO QHS 30 Days Hydrocodone-Apap 5-325 (Hydrocodone Bit/Acetaminophen) 1 Each Tablet 1 Tab PO PRN Q4HRS PRN 30 Days Bisacodyl 5 Mg Tablet.dr 10 Mg PO PRN DAILY PRN 30 Days Feosol (Ferrous Sulfate) 325 Mg Tablet 325 Mg PO DAILYWBKFT 30 Days [Metoprolol Tartrate] 25 MG Tablet 12.5 Mg PO BID Reported Oxycodon-Acetaminophen 2.5-325 (Oxycodone Hcl/Acetaminophen) 1 Each Tablet 1 Each PO PRN Q6HRS PRN Proair Hfa Inhaler (Albuterol Sulfate) 8.5 Gm Hfa.aer.ad 1 Puff INH PRN Q6HRS PRN Actos (Pioglitazone Hcl) 15 Mg Tablet 15 Mg PO DAILY Trulicity (Dulaglutide) 0.75 Mg/0.5 Ml Pen.injctr 0.75 Mg SQ Requip (Ropinirole Hcl) 0.5 Mg Tablet 0.5 Mg PO BID Vitamin D3 (Cholecalciferol (Vitamin D3)) 400 Unit Tablet 400 Unit PO DAILY Brovana (Arformoterol Tartrate) 15 Mcg/2 Ml Vial.neb 15 Mcg IH Flovent 220MCG Hfa (Fluticasone Propionate) 12 Gm Aer.w.adap 12 Gm IH Vitamin E 1,000 Unit Capsule 1,000 Unit PO Haloperidol 5 Mg Tablet 5 Mg PO Lipitor (Atorvastatin Calcium) 80 Mg Tablet 80 Mg PO Valacyclovir (Valacyclovir Hcl) 1,000 Mg Tablet 1,000 Mg PO Oxybutynin Chloride 5 Mg Tablet 5 Mg PO Lisinopril 10 Mg Tablet 20 Mg PO Meloxicam 15 Mg Tablet 15 Mg PO Prilosec (Omeprazole) 10 Mg Capsule.dr 20 Mg PO Vitals/I & O Vital Sign - Last 24 Hours 06/02/17 06/02/17 06/02/17 06/02/17 15:00 19:20 19:32 19:47 Temp 97.1 97.7 97.1 97.7 Pulse 96 100 Resp 22 21 22 B/P (MAP) 149/83 (105) 144/79 (100) Pulse Ox 96 99 O2 Delivery Nasal Cannula Nasal Cannula Nasal Cannula Nasal Cannula O2 Flow Rate 2.0 3.0 2.0 3.0 06/02/17 06/02/17 06/02/17 06/02/17 20:00 20:32 21:02 23:38 Temp 97.7 97.7 Pulse 96 70 Resp 22 B/P (MAP) 149/83 110/51 (70) Pulse Ox 98 O2 Delivery Nasal Cannula Room Air Nasal Cannula O2 Flow Rate 3.0 3.0 06/03/17 06/03/17 06/03/17 06/03/17 03:50 07:00 07:38 09:48 Temp 97.7 97.6 97.7 97.6 Pulse 76 86 86 Resp 19 19 B/P (MAP) 99/62 (74) 101/48 (65) 101/48 Pulse Ox 95 98 O2 Delivery Nasal Cannula Nasal Cannula Nasal Cannula O2 Flow Rate 3.0 2.0 3.0 06/03/17 06/03/17 09:50 11:00 Temp 97.5 97.5 Pulse 86 60 Resp 18 B/P (MAP) 101/48 116/59 (78) Pulse Ox 99 O2 Delivery Nasal Cannula O2 Flow Rate 2.0 Intake and Output 06/02/17 06/02/17 06/03/17 15:00 23:00 07:00 Intake Total 1753 ml 500 ml Output Total 550 ml 550 ml Balance 1203 ml -50 ml CASSIDY ORNELAS MD Jun 03, 2017 13:06
[2017-06-03] MEDS: oxyCODONE/APAP 7.5/325 1 TAB TABLET PO PRN ×2 (13:57→20:41)
[2017-06-03 15:00] VITALS: BP 134/56
[2017-06-03] MEDS: HALOPERIDOL 5 MG TABLET. PO SCH (17:50)
[2017-06-03 19:55] VITALS: BP 137/62
[2017-06-03] MEDS: LIDOCAINE (700MG/PATCH) PATCH. TD PRN (20:40)
[2017-06-03] MEDS: TAMSULOSIN 0.4 MG CAP.ER.24H. PO SCH (20:41)
[2017-06-03] MEDS: ATORVASTATIN CALCIUM 40 MG TABLET. PO SCH (20:41)
[2017-06-03 22:49] VITALS: BP 98/53
[2017-06-04 02:08] VITALS: BP 125/58
[2017-06-04 04:40] LABS: BASO # 0.1 x10^3/uL (0.0-0.2); BASO % 1 % (0-3); EOS % 3 % (0-3); HEMATOCRIT 26.1 % (36.0-47.0); HEMOGLOBIN 8.4 g/dL (12.0-15.5); LYMPH # 2.5 x10^3/uL (1.0-4.8); LYMPH % 20 % (24-48); MEAN CORPUSCULAR HEMOGLOBIN 30 pg (25-35); MEAN CORPUSCULAR HGB CONC 32 g/dL (31-37); MEAN CORPUSCULAR VOLUME 92 fL (79-100); MONO % 14 % (0-9); NEUT % 63 % (31-73); PLATELET COUNT 475 x10^3/uL (140-400); RED BLOOD COUNT 2.82 x10^6/uL (3.50-5.40); RED CELL DISTRIBUTION WIDTH 15.9 % (11.5-14.5); WHITE BLOOD COUNT 12.7 x10^3/uL (4.0-11.0)
[2017-06-04 05:10] LABS: CALCIUM 8.6 mg/dL (8.5-10.1); CREATININE 0.9 mg/dL (0.6-1.0); GFR 62.6; POTASSIUM 4.9 mmol/L (3.5-5.1)
[2017-06-04] MEDS: oxyCODONE/APAP 7.5/325 1 TAB TABLET PO PRN ×2 (05:45→21:32)
[2017-06-04] MEDS: LEVOTHYROXINE 100 MCG TABLET PO SCH (05:45)
[2017-06-04 07:00] VITALS: BP 111/59
[2017-06-04] MEDS: BUDESONIDE 0.5 MG/2 ML NEBU. NEB SCH ×2 (07:28→20:45)
[2017-06-04] MEDS: EXENATIDE 10 MCG/0.04 ML 2.4ML PEN.INJCTR. SQ SCH ×2 (07:30→16:54)
--- NOTE | 2017-06-04 08:25 | PDOC ---
PROGRESS NOTES Subjective Venous stasis ulcers were draining over weekend and she was not up much over weekend but breathing ok, denies chest pain, itching controlled with hydroxyzine , lisinopril dose decreased, still in afib but rate controlled, she is still drinking alot of water "I have to to get my pills down". Objective Afebrile General: alert, breathing easily Heart: irreg, irreg, monitor showing afib with rate about 80 Lungs: clear anteriorly Abd: morbidly obese but soft Ext: cellulitis has resolved, edema present, lidocaine patch left upper thigh due to pain Na+ still 130 Vital Signs Vital Signs Date Time Temp Pulse Resp B/P (MAP) Pulse Ox O2 Delivery O2 Flow Rate FiO2 06/04/17 07:29 97 Nasal Cannula 3.0 06/04/17 06:45 20 06/04/17 02:08 97.8 76 125/58 (80) 97.8 I & O Intake and Output 06/04/17 07:00 Intake Total 1333 ml Output Total 1075 ml Balance 258 ml Intake Oral 1333 ml Output Urine Total 1075 ml # Bowel Movements 2 Assessment and Plan 1. Sepsis (resolved) with increased leukocytosis, hypotension and abnormal urinalysis - ID following. Urine culture negative so likely from skin source, improving, now on po antibiotics and po yeast meds. WBC remains mildly elevated but she is asplenic and has myelodysplasia 2. Hyponatremia, slowly improving with IV saline. IVFs DC'd 06/02. Na stable at 130 this am, will add daily lasix 20 mg and see if BP tolerates. 3. Acute ( new L3 compression fracture) on chronic back pain with a recent L4- 5 lumbar laminectomy, IR will not do procedure due to infection risk. She has been denies LTAC and has a unaffordable co-pay for SNU, will need to be strong enough to ambulate and transfer prior to discharging home with HH, continue PT/ OT 4. New onset atrial fibrillation, rate controlled with Metoprolol 12.5mg BID, on ASA as fall risk. 5. Hypothyroidism, undertreated - dose increased to 125mcg Levothyroxine 6. Type 2 diabetes, controlled- pt continued on Actos 15mg and Byetta 10mcg BID 7. Schizophrenia, paranoid type, drinking a lot of water so will fluid restrict - continued on Haldol 5mg 8. Acute renal failure from dehydration and likely tubular necrosis, resolved with hydration. 9. Sacral decubitus ulcer present on admission. 10. cellulitis of lower extremities, improved with IV now po antibiotics 11. myelodysplasia, asplenic 12. yeast dermatitis - continue meds, wound care to reassess 13. HLD- pt continued on Atorvastatin 40mg 14. HTN- pt a little more on the lower side today. Lisinopril decreased to 10mg. 15. lymphedema with venous stasis ulcer, wound care to see Problems: Prosper MEEHAN MD Jun 04, 2017 08:25
[2017-06-04] MEDS: MELOXICAM 7.5 MG TABLET PO SCH (08:42)
[2017-06-04] MEDS: CEFPODOXIME PROXETIL 100 MG TABLET. PO SCH ×2 (08:42→21:33)
[2017-06-04] MEDS: METOPROLOL TART IMMED RELEASE 25 MG TABLET. PO SCH ×2 (08:42→21:31)
[2017-06-04] MEDS: FERROUS SULFATE 325 MG TABLET. PO SCH (08:42)
[2017-06-04] MEDS: PANTOPRAZOLE 40 MG TABLET.DR. PO SCH (08:42)
[2017-06-04] MEDS: LACTOBACILLUS RHAMNOSUS GG 1 CAPSULE. PO SCH ×2 (08:43→21:31)
[2017-06-04] MEDS: ACYCLOVIR 200 MG CAPSULE. PO SCH ×3 (08:43→21:33)
[2017-06-04] MEDS: FLUCONAZOLE 100 MG TABLET. PO SCH (08:43)
[2017-06-04] MEDS: rOPINIRole 0.25 MG TABLET. PO SCH ×3 (08:43→21:33)
[2017-06-04] MEDS: LISINOPRIL 10 MG TABLET PO SCH (08:43)
[2017-06-04] MEDS: VITS A & D/LANOLIN TOPICAL OINTMENT 56GM TUBE. TP SCH ×2 (08:44→21:34)
[2017-06-04] MEDS: NYSTATIN 100,000 UNIT/GM TOPICAL CREAM 15GM TUBE. TP SCH ×2 (08:44→21:34)
[2017-06-04] MEDS: PIOGLITAZONE 15 MG TABLET. PO SCH (08:44)
[2017-06-04] MEDS: CHOLECALCIFEROL (VITAMIN D3) 1,000 UNIT TABLET PO SCH (08:44)
[2017-06-04] MEDS: VITAMIN E 200 UNIT CAPSULE. PO SCH (08:44)
[2017-06-04] MEDS: FUROSEMIDE 20 MG TABLET PO SCH (08:47)
--- NOTE | 2017-06-04 10:06 | PDOC ---
PROGRESS NOTES Subjective Subjective No new complaints. Objective Objective Vital Signs Date Time Temp Pulse Resp B/P (MAP) Pulse Ox O2 Delivery O2 Flow Rate FiO2 06/04/17 08:43 97 111/59 06/04/17 08:00 Nasal Cannula 3.0 06/04/17 07:29 97 06/04/17 07:00 97.3 20 97.3 Intake and Output 06/04/17 07:00 Intake Total 1333 ml Output Total 1075 ml Balance 258 ml Intake Oral 1333 ml Output Urine Total 1075 ml # Bowel Movements 2 Physical Exam Physical Exam She is alert,supine in bed and she continues to work with physical and occupational therapy. Assessment Assessment Problems Medical Problems: (1) Hypotension Status: Acute Plan Plan of Care To continue present rehab efforts as tolerated. Comment Review of Relevant I have reviewed the following items hitesh (where applicable) has been applied. Labs Laboratory Tests Test 06/02/17 11:58 06/02/17 16:56 06/02/17 21:08 06/03/17 03:30 Glucose (Fingerstick) 125 mg/dL (70-99) 123 mg/dL (70-99) 125 mg/dL (70-99) White Blood Count 12.6 x10^3/uL (4.0-11.0) Red Blood Count 2.71 x10^6/uL (3.50-5.40) Hemoglobin 8.4 g/dL (12.0-15.5) Hematocrit 24.7 % (36.0-47.0) Mean Corpuscular Volume 91 fL (79-100) Mean Corpuscular Hemoglobin 31 pg (25-35) Mean Corpuscular Hemoglobin Concent 34 g/dL (31-37) Red Cell Distribution Width 15.4 % (11.5-14.5) Platelet Count 440 x10^3/uL (140-400) Neutrophils (%) (Auto) 63 % (31-73) Lymphocytes (%) (Auto) 17 % (24-48) Monocytes (%) (Auto) 17 % (0-9) Eosinophils (%) (Auto) 3 % (0-3) Basophils (%) (Auto) 1 % (0-3) Neutrophils # (Auto) 7.9 x10^3uL (1.8-7.7) Lymphocytes # (Auto) 2.1 x10^3/uL (1.0-4.8) Monocytes # (Auto) 2.1 x10^3/uL (0.0-1.1) Eosinophils # (Auto) 0.4 x10^3/uL (0.0-0.7) Basophils # (Auto) 0.1 x10^3/uL (0.0-0.2) Segmented Neutrophils % 58 % (35-66) Band Neutrophils % 3 % (0-9) Lymphocytes % 21 % (24-48) Monocytes % 14 % (0-10) Eosinophils % 1 % (0-5) Myelocytes % 3 % (0-0) Platelet Estimate Increased (ADEQUATE) Polychromasia Present Hypochromasia Present Anisocytosis Slight Target Cells Occ Sodium Level 130 mmol/L (136-145) Potassium Level 4.5 mmol/L (3.5-5.1) Chloride Level 96 mmol/L (98-107) Carbon Dioxide Level 29 mmol/L (21-32) Anion Gap 5 (6-14) Blood Urea Nitrogen 15 mg/dL (7-20) Creatinine 0.8 mg/dL (0.6-1.0) Estimated GFR (Cockcroft-Gault) 71.8 Glucose Level 88 mg/dL (70-99) Calcium Level 8.6 mg/dL (8.5-10.1) Test 06/03/17 08:01 06/03/17 12:09 06/03/17 16:31 06/03/17 20:43 Glucose (Fingerstick) 97 mg/dL (70-99) 125 mg/dL (70-99) 101 mg/dL (70-99) 117 mg/dL (70-99) Test 06/04/17 03:40 06/04/17 07:41 White Blood Count 12.7 x10^3/uL (4.0-11.0) Red Blood Count 2.82 x10^6/uL (3.50-5.40) Hemoglobin 8.4 g/dL (12.0-15.5) Hematocrit 26.1 % (36.0-47.0) Mean Corpuscular Volume 92 fL (79-100) Mean Corpuscular Hemoglobin 30 pg (25-35) Mean Corpuscular Hemoglobin Concent 32 g/dL (31-37) Red Cell Distribution Width 15.9 % (11.5-14.5) Platelet Count 475 x10^3/uL (140-400) Neutrophils (%) (Auto) 63 % (31-73) Lymphocytes (%) (Auto) 20 % (24-48) Monocytes (%) (Auto) 14 % (0-9) Eosinophils (%) (Auto) 3 % (0-3) Basophils (%) (Auto) 1 % (0-3) Neutrophils # (Auto) 8.0 x10^3uL (1.8-7.7) Lymphocytes # (Auto) 2.5 x10^3/uL (1.0-4.8) Monocytes # (Auto) 1.7 x10^3/uL (0.0-1.1) Eosinophils # (Auto) 0.4 x10^3/uL (0.0-0.7) Basophils # (Auto) 0.1 x10^3/uL (0.0-0.2) Sodium Level 130 mmol/L (136-145) Potassium Level 4.9 mmol/L (3.5-5.1) Chloride Level 95 mmol/L (98-107) Carbon Dioxide Level 29 mmol/L (21-32) Anion Gap 6 (6-14) Blood Urea Nitrogen 13 mg/dL (7-20) Creatinine 0.9 mg/dL (0.6-1.0) Estimated GFR (Cockcroft-Gault) 62.6 Glucose Level 101 mg/dL (70-99) Calcium Level 8.6 mg/dL (8.5-10.1) Glucose (Fingerstick) 96 mg/dL (70-99) Laboratory Tests Test 06/03/17 12:09 06/03/17 16:31 06/03/17 20:43 06/04/17 03:40 Glucose (Fingerstick) 125 mg/dL (70-99) 101 mg/dL (70-99) 117 mg/dL (70-99) White Blood Count 12.7 x10^3/uL (4.0-11.0) Red Blood Count 2.82 x10^6/uL (3.50-5.40) Hemoglobin 8.4 g/dL (12.0-15.5) Hematocrit 26.1 % (36.0-47.0) Mean Corpuscular Volume 92 fL (79-100) Mean Corpuscular Hemoglobin 30 pg (25-35) Mean Corpuscular Hemoglobin Concent 32 g/dL (31-37) Red Cell Distribution Width 15.9 % (11.5-14.5) Platelet Count 475 x10^3/uL (140-400) Neutrophils (%) (Auto) 63 % (31-73) Lymphocytes (%) (Auto) 20 % (24-48) Monocytes (%) (Auto) 14 % (0-9) Eosinophils (%) (Auto) 3 % (0-3) Basophils (%) (Auto) 1 % (0-3) Neutrophils # (Auto) 8.0 x10^3uL (1.8-7.7) Lymphocytes # (Auto) 2.5 x10^3/uL (1.0-4.8) Monocytes # (Auto) 1.7 x10^3/uL (0.0-1.1) Eosinophils # (Auto) 0.4 x10^3/uL (0.0-0.7) Basophils # (Auto) 0.1 x10^3/uL (0.0-0.2) Sodium Level 130 mmol/L (136-145) Potassium Level 4.9 mmol/L (3.5-5.1) Chloride Level 95 mmol/L (98-107) Carbon Dioxide Level 29 mmol/L (21-32) Anion Gap 6 (6-14) Blood Urea Nitrogen 13 mg/dL (7-20) Creatinine 0.9 mg/dL (0.6-1.0) Estimated GFR (Cockcroft-Gault) 62.6 Glucose Level 101 mg/dL (70-99) Calcium Level 8.6 mg/dL (8.5-10.1) Test 06/04/17 07:41 Glucose (Fingerstick) 96 mg/dL (70-99) Microbiology 05/26/17 Blood Culture - Final, Complete NO GROWTH AFTER 5 DAYS 05/26/17 Urine Culture - Final, Complete 05/26/17 Urine Culture Result 1 (ADELAIDA) - Final, Complete Medications Current Medications Fentanyl Citrate (Fentanyl 2ml Vial) 25 mcg PRN Q15MIN PRN IV PAIN GREATER THAN 3/10 Last administered on 05/26/17t 22:56; Start 05/26/17 at 12:45; Stop 05/27/17 at 12:44; Status DC Sodium Chloride 1,000 ml @ 1,000 mls/hr 1X ONCE IV Last administered on 14:40; Start 05/26/17 at 14:30; Stop 05/26/17 at 15:29; Status DC Clindamycin Phosphate 50 ml @ 100 mls/hr 1X ONCE IV Last administered on 05/26 14:46; Start 05/26/17 at 15:00; Stop 05/26/17 at 15:29; Status DC Sodium Chloride 1,000 ml @ 1,000 mls/hr 1X ONCE IV Last administered on 18:19; Start 05/26/17 at 16:00; Stop 05/26/17 at 16:59; Status DC Sodium Chloride 1,000 ml @ 1,770 mls/hr Q34M IV Last administered on 18:28; Start 05/26/17 at 17:00; Stop 05/26/17 at 18:00; Status DC Norepinephrine Bitartrate 250 ml @ 0 mls/hr CONT PRN IV SEE I/O RECORD Last administered on 05/26/17 18:19; Start 05/26/17 at 18:15; Stop 05/27/17 at 20: 35; Status DC Linezolid 300 ml @ 300 mls/hr Q12HR IV Last administered on 05/28/17 21:25; Start 05/26/17 at 21:00; Stop 05/29/17 at 08:25; Status DC Cefepime HCl 1 gm/ Dextrose 50 ml @ 100 mls/hr Q12HR IV ; Start 05/26/17 at 21: 00; Status UNV Cefepime HCl (Maxipime) 1 gm Q12H IVP Last administered on 05/28/17 19:39; Start 05/26/17 at 20:00; Stop 05/29/17 at 08:25; Status DC Ondansetron HCl (Zofran) 4 mg PRN Q8HRS PRN IV NAUSEA/VOMITING; Start 05/26/17 at 21:00; Stop 05/27/17 at 20:59; Status DC Bisacodyl (Dulcolax Tab) 10 mg PRN DAILY PRN PO CONSTIPATION; Start 05/27/17 at 08:45 Ferrous Sulfate (Feosol) 325 mg DAILYWBKFT PO Last administered on 06/04/17 08:42; Start 05/27/17 at 09:00 Haloperidol (Haldol) 5 mg DAILY16 PO Last administered on 06/03/17 17:50; Start 05/27/17 at 16:00 Acetaminophen/ Hydrocodone Bitart (Lortab 5/325) 1 tab PRN Q4HRS PRN PO PAIN Last administered on 06/02/17 02:45; Start 05/27/17 at 08:45 Levothyroxine Sodium (Synthroid) 125 mcg DAILY07 PO Last administered on 05:45; Start 05/28/17 at 07:00 Lidocaine (Lidoderm) 3 patch PRN DAILY PRN TD TOPICAL PAIN Last administered on 06/03/17 20:40; Start 05/27/17 at 08:45 Lisinopril (Prinivil) 20 mg DAILY08 PO Last administered on 06/03/17 09:50; Start 05/27/17 at 09:00; Stop 06/03/17 at 11:07; Status DC Nystatin (Mycostatin) 1 eusebio BID TP Last administered on 06/04/17 08:44; Start 05/27/17 at 09:00 Pioglitazone HCl (Actos) 15 mg DAILY PO Last administered on 06/04/17 08:44; Start 05/27/17 at 09:00 Tamsulosin HCl (Flomax) 0.4 mg QHS PO Last administered on 06/03/17 20:41; Start 05/27/17 at 21:00 Atorvastatin Calcium (Lipitor) 40 mg QHS PO Last administered on 06/03/17 20: 41; Start 05/27/17 at 21:00 Vitamin D (Vitamin D3) 500 unit DAILY PO Last administered on 06/04/17 08:44 ; Start 05/27/17 at 09:00 Exenatide (Byetta) 10 mcg BIDBFRMEAL SQ Last administered on 06/03/17 17:50; Start 05/27/17 at 16:30 Budesonide (Pulmicort) 0.5 mg RTBID NEB Last administered on 06/04/17 07:28; Start 05/27/17 at 09:00 Meloxicam (Mobic) 15 mg DAILY PO Last administered on 06/04/17 08:42; Start 05/27/17 at 09:00 Pantoprazole Sodium (Protonix) 40 mg DAILYAC PO Last administered on 08:42; Start 05/27/17 at 11:30 Oxycodone/ Acetaminophen (Percocet 7.5/ 325) 1 tab PRN Q4HRS PRN PO PAIN Last administered on 06/04/17 05:45; Start 05/27/17 at 08:45 Ropinirole HCl (Requip) 0.5 mg TID PO Last administered on 06/04/17 08:43; Start 05/27/17 at 09:00 Acyclovir (Zovirax) 200 mg [id number] PO Last administered on 06/04/17 08:43; Start 05/27/17 at 09:00 Vitamin E 1,000 unit DAILY PO Last administered on 06/04/17 08:44; Start 04/03 at 09:00 Metoprolol Tartrate (Lopressor) 12.5 mg BID PO Last administered on 06/04/17 08:42; Start 05/27/17 at 09:00 Fluconazole/ Sodium Chloride 100 ml @ 100 mls/hr Q24H IV Last administered on 05/28/17 09:06; Start 05/27/17 at 10:00; Stop 05/29/17 at 08:25; Status DC Lactobacillus Rhamnosus (Culturelle) 1 cap BID PO Last administered on 08:43; Start 05/27/17 at 21:00 Hydroxyzine Pamoate (Vistaril) 25 mg PRN Q6HRS PRN PO ITCHING Last administered on 06/03/17 23:46; Start 05/28/17 at 08:45 Lidocaine HCl (Xylocaine-Mpf 1% Vial) 2 ml 1X PRN PRN ID FOR PIC LINE INSERTION ; Start 05/28/17 at 09:45; Stop 05/29/17 at 09:44; Status DC Sodium Chloride (Normal Saline Flush) 20 ml 1X PRN PRN IV PER PROTOCOL; Start 05/28/17 at 09:45; Stop 05/29/17 at 09:44; Status DC Lidocaine/ Prilocaine (Emla) 1 eusebio 1X ONCE TP ; Start 05/28/17 at 09:45; Stop 05/28/17 at 09:49; Status DC Gadobutrol (Gadavist) 7 mmol 1X ONCE IV ; Start 05/28/17 at 16:45; Stop 05/28 at 16:46; Status DC Gadobutrol (Gadavist) 7 mmol 1X ONCE IV ; Start 05/28/17 at 16:45; Stop 05/28 at 16:46; Status DC Cefpodoxime Proxetil (Vantin) 200 mg BID PO Last administered on 06/04/17 08: 42; Start 05/29/17 at 09:00 Fluconazole (Diflucan) 200 mg DAILY PO Last administered on 06/04/17 08:43; Start 05/29/17 at 09:00 Sodium Chloride 1,000 ml @ 60 mls/hr [id number] IV Last administered on 16:58; Start 05/29/17 at 15:00; Stop 06/02/17 at 13:14; Status DC Vitamin A/Vitamin D (Vitamin A & D Ointment) 1 eusebio BID TP Last administered on 06/04/17 08:44; Start 05/30/17 at 10:45 Vitamin A/Vitamin D (Vitamin A & D Ointment) 1 eusebio PRN Q1HR PRN TP SKIN PROTECTION; Start 05/30/17 at 10:45 Furosemide (Lasix) 40 mg 1X ONCE IVP Last administered on 05/31/17 08:56; Start 05/31/17 at 08:30; Stop 05/31/17 at 08:31; Status DC Furosemide (Lasix) 40 mg 1X ONCE IVP Last administered on 06/01/17 09:43; Start 06/01/17 at 09:00; Stop 06/01/17 at 09:01; Status DC Lisinopril (Prinivil) 10 mg DAILY08 PO Last administered on 06/04/17 08:43; Start 06/04/17 at 08:00 Furosemide (Lasix) 20 mg DAILY PO Last administered on 06/04/17 08:47; Start 06/04/17 at 09:00 Active Scripts Active Citroma (Magnesium Citrate) 296 Ml Solution 296 Ml PO PRN 1X PRN 10 Days Synthroid (Levothyroxine Sodium) 100 Mcg Tablet 100 Mcg PO DAILY07 30 Days Lidocaine 1 Each Adh..patch 3 Patch TD PRN DAILY PRN 30 Days Nystatin 15 Gm Cream..g. 1 Eusebio TP BID 14 Days Flomax (Tamsulosin Hcl) 0.4 Mg Cap.er.24h 0.4 Mg PO QHS 30 Days Hydrocodone-Apap 5-325 (Hydrocodone Bit/Acetaminophen) 1 Each Tablet 1 Tab PO PRN Q4HRS PRN 30 Days Bisacodyl 5 Mg Tablet.dr 10 Mg PO PRN DAILY PRN 30 Days Feosol (Ferrous Sulfate) 325 Mg Tablet 325 Mg PO DAILYWBKFT 30 Days [Metoprolol Tartrate] 25 MG Tablet 12.5 Mg PO BID Reported Oxycodon-Acetaminophen 2.5-325 (Oxycodone Hcl/Acetaminophen) 1 Each Tablet 1 Each PO PRN Q6HRS PRN Proair Hfa Inhaler (Albuterol Sulfate) 8.5 Gm Hfa.aer.ad 1 Puff INH PRN Q6HRS PRN Actos (Pioglitazone Hcl) 15 Mg Tablet 15 Mg PO DAILY Trulicity (Dulaglutide) 0.75 Mg/0.5 Ml Pen.injctr 0.75 Mg SQ Requip (Ropinirole Hcl) 0.5 Mg Tablet 0.5 Mg PO BID Vitamin D3 (Cholecalciferol (Vitamin D3)) 400 Unit Tablet 400 Unit PO DAILY Brovana (Arformoterol Tartrate) 15 Mcg/2 Ml Vial.neb 15 Mcg IH Flovent 220MCG Hfa (Fluticasone Propionate) 12 Gm Aer.w.adap 12 Gm IH Vitamin E 1,000 Unit Capsule 1,000 Unit PO Haloperidol 5 Mg Tablet 5 Mg PO Lipitor (Atorvastatin Calcium) 80 Mg Tablet 80 Mg PO Valacyclovir (Valacyclovir Hcl) 1,000 Mg Tablet 1,000 Mg PO Oxybutynin Chloride 5 Mg Tablet 5 Mg PO Lisinopril 10 Mg Tablet 20 Mg PO Meloxicam 15 Mg Tablet 15 Mg PO Prilosec (Omeprazole) 10 Mg Capsule. 20 Mg PO Vitals/I & O Vital Sign - Last 24 Hours 06/03/17 06/03/17 06/03/17 06/03/17 11:00 13:57 15:00 19:37 Temp 97.5 97.8 97.5 97.8 Pulse 60 68 Resp 18 19 B/P (MAP) 116/59 (78) 134/56 (82) Pulse Ox 99 98 O2 Delivery Nasal Cannula Nasal Cannula Nasal Cannula Nasal Cannula O2 Flow Rate 2.0 3.0 2.0 3.0 06/03/17 06/03/17 06/03/17 06/03/17 19:40 19:55 20:41 20:42 Temp 97.6 97.6 Pulse 84 84 Resp 19 20 B/P (MAP) 137/62 (87) 137/62 Pulse Ox 96 O2 Delivery Nasal Cannula Nasal Cannula Nasal Cannula O2 Flow Rate 2.0 2.0 2.0 06/03/17 06/04/17 06/04/17 06/04/17 22:49 02:08 05:45 06:45 Temp 97.9 97.8 97.9 97.8 Pulse 82 76 Resp 19 21 20 20 B/P (MAP) 98/53 (68) 125/58 (80) Pulse Ox 97 97 97 O2 Delivery Nasal Cannula Nasal Cannula Nasal Cannula Nasal Cannula O2 Flow Rate 2.0 2.0 2.0 2.0 06/04/17 06/04/17 06/04/17 06/04/17 07:00 07:29 08:00 08:42 Temp 97.3 97.3 Pulse 95 113 Resp 20 B/P (MAP) 111/59 (76) 125/58 Pulse Ox 96 97 O2 Delivery Nasal Cannula Nasal Cannula Nasal Cannula O2 Flow Rate 2.0 3.0 3.0 06/04/17 08:43 Pulse 97 B/P (MAP) 111/59 Intake and Output 06/03/17 06/03/17 06/04/17 15:00 23:00 07:00 Intake Total 1333 ml Output Total 450 ml 625 ml Balance 883 ml -625 ml CASSIDY ORNELAS MD Jun 04, 2017 10:06
[2017-06-04 11:00] VITALS: BP 134/78
[2017-06-04 15:00] VITALS: BP 123/66
[2017-06-04] MEDS: HALOPERIDOL 5 MG TABLET. PO SCH (16:54)
[2017-06-04 19:55] VITALS: BP 124/55
[2017-06-04] MEDS: TAMSULOSIN 0.4 MG CAP.ER.24H. PO SCH (21:31)
[2017-06-04] MEDS: ATORVASTATIN CALCIUM 40 MG TABLET. PO SCH (21:31)
[2017-06-04 23:17] VITALS: BP 133/65
[2017-06-05 02:48] VITALS: BP 110/62
[2017-06-05] MEDS: LEVOTHYROXINE 100 MCG TABLET PO SCH (06:09)
[2017-06-05 07:00] VITALS: BP 103/54
[2017-06-05] MEDS: BUDESONIDE 0.5 MG/2 ML NEBU. NEB SCH (07:25)
[2017-06-05] MEDS: EXENATIDE 10 MCG/0.04 ML 2.4ML PEN.INJCTR. SQ SCH (07:30)
[2017-06-05] MEDS: LISINOPRIL 10 MG TABLET PO SCH (08:00)
[2017-06-05] MEDS: CEFPODOXIME PROXETIL 100 MG TABLET. PO SCH (08:38)
[2017-06-05] MEDS: FLUCONAZOLE 100 MG TABLET. PO SCH (08:38)
[2017-06-05] MEDS: rOPINIRole 0.25 MG TABLET. PO SCH (08:38)
[2017-06-05] MEDS: LACTOBACILLUS RHAMNOSUS GG 1 CAPSULE. PO SCH (08:39)
[2017-06-05] MEDS: MELOXICAM 7.5 MG TABLET PO SCH (08:39)
[2017-06-05] MEDS: FERROUS SULFATE 325 MG TABLET. PO SCH (08:39)
[2017-06-05] MEDS: FUROSEMIDE 20 MG TABLET PO SCH (08:39)
[2017-06-05] MEDS: PANTOPRAZOLE 40 MG TABLET.DR. PO SCH (08:39)
[2017-06-05] MEDS: CHOLECALCIFEROL (VITAMIN D3) 1,000 UNIT TABLET PO SCH (08:39)
[2017-06-05] MEDS: ACYCLOVIR 200 MG CAPSULE. PO SCH (08:39)
[2017-06-05] MEDS: VITAMIN E 200 UNIT CAPSULE. PO SCH (08:39)
[2017-06-05] MEDS: PIOGLITAZONE 15 MG TABLET. PO SCH (08:39)
[2017-06-05] MEDS: NYSTATIN 100,000 UNIT/GM TOPICAL CREAM 15GM TUBE. TP SCH (08:40)
[2017-06-05] MEDS: VITS A & D/LANOLIN TOPICAL OINTMENT 56GM TUBE. TP SCH (08:40)
[2017-06-05] MEDS: METOPROLOL TART IMMED RELEASE 25 MG TABLET. PO SCH (09:00)
[2017-06-05 11:00] VITALS: BP 118/61
[2017-06-05] MEDS: oxyCODONE/APAP 7.5/325 1 TAB TABLET PO PRN (12:56)
[2017-06-05] MEDS ORDERED: OXYC-327 PO (13:35)
--- NOTE | 2017-06-05 17:47 | PDOC ---
PROGRESS NOTES Subjective Subjective She feels better. Objective Objective Vital Signs Date Time Temp Pulse Resp B/P (MAP) Pulse Ox O2 Delivery O2 Flow Rate FiO2 06/05/17 14:13 Nasal Cannula 3.0 06/05/17 11:00 98.1 83 21 118/61 (80) 99 98.1 Intake and Output 06/05/17 07:00 Intake Total 2675 ml Output Total 2775 ml Balance -100 ml Intake Oral 2675 ml Output Urine Total 2775 ml Physical Exam Physical Exam She continues to do better with her bed mobility and transfers and walking with roller walker for short distances. Assessment Assessment Problems Medical Problems: (1) Hypotension Status: Acute Plan Plan of Care To consider d/c Correa catheter and give her a voiding trial. Comment Review of Relevant I have reviewed the following items hitesh (where applicable) has been applied. Labs Laboratory Tests Test 06/03/17 20:43 06/04/17 03:40 06/04/17 07:41 06/04/17 11:03 Glucose (Fingerstick) 117 mg/dL (70-99) 96 mg/dL (70-99) 120 mg/dL (70-99) White Blood Count 12.7 x10^3/uL (4.0-11.0) Red Blood Count 2.82 x10^6/uL (3.50-5.40) Hemoglobin 8.4 g/dL (12.0-15.5) Hematocrit 26.1 % (36.0-47.0) Mean Corpuscular Volume 92 fL (79-100) Mean Corpuscular Hemoglobin 30 pg (25-35) Mean Corpuscular Hemoglobin Concent 32 g/dL (31-37) Red Cell Distribution Width 15.9 % (11.5-14.5) Platelet Count 475 x10^3/uL (140-400) Neutrophils (%) (Auto) 63 % (31-73) Lymphocytes (%) (Auto) 20 % (24-48) Monocytes (%) (Auto) 14 % (0-9) Eosinophils (%) (Auto) 3 % (0-3) Basophils (%) (Auto) 1 % (0-3) Neutrophils # (Auto) 8.0 x10^3uL (1.8-7.7) Lymphocytes # (Auto) 2.5 x10^3/uL (1.0-4.8) Monocytes # (Auto) 1.7 x10^3/uL (0.0-1.1) Eosinophils # (Auto) 0.4 x10^3/uL (0.0-0.7) Basophils # (Auto) 0.1 x10^3/uL (0.0-0.2) Sodium Level 130 mmol/L (136-145) Potassium Level 4.9 mmol/L (3.5-5.1) Chloride Level 95 mmol/L (98-107) Carbon Dioxide Level 29 mmol/L (21-32) Anion Gap 6 (6-14) Blood Urea Nitrogen 13 mg/dL (7-20) Creatinine 0.9 mg/dL (0.6-1.0) Estimated GFR (Cockcroft-Gault) 62.6 Glucose Level 101 mg/dL (70-99) Calcium Level 8.6 mg/dL (8.5-10.1) Test 06/04/17 16:25 06/04/17 21:07 06/05/17 07:33 06/05/17 11:46 Glucose (Fingerstick) 177 mg/dL (70-99) 150 mg/dL (70-99) 117 mg/dL (70-99) 144 mg/dL (70-99) Laboratory Tests Test 06/04/17 21:07 06/05/17 07:33 06/05/17 11:46 Glucose (Fingerstick) 150 mg/dL (70-99) 117 mg/dL (70-99) 144 mg/dL (70-99) Microbiology 05/26/17 Blood Culture - Final, Complete NO GROWTH AFTER 5 DAYS 05/26/17 Urine Culture - Final, Complete 05/26/17 Urine Culture Result 1 (ADELAIDA) - Final, Complete Medications Current Medications Fentanyl Citrate (Fentanyl 2ml Vial) 25 mcg PRN Q15MIN PRN IV PAIN GREATER THAN 3/10 Last administered on 05/26/17 22:56; Start 05/26/17 at 12:45; Stop 05/27/17 at 12:44; Status DC Sodium Chloride 1,000 ml @ 1,000 mls/hr 1X ONCE IV Last administered on 14:40; Start 05/26/17 at 14:30; Stop 05/26/17 at 15:29; Status DC Clindamycin Phosphate 50 ml @ 100 mls/hr 1X ONCE IV Last administered on 05/26 14:46; Start 05/26/17 at 15:00; Stop 05/26/17 at 15:29; Status DC Sodium Chloride 1,000 ml @ 1,000 mls/hr 1X ONCE IV Last administered on 18:19; Start 05/26/17 at 16:00; Stop 05/26/17 at 16:59; Status DC Sodium Chloride 1,000 ml @ 1,770 mls/hr Q34M IV Last administered on 18:28; Start 05/26/17 at 17:00; Stop 05/26/17 at 18:00; Status DC Norepinephrine Bitartrate 250 ml @ 0 mls/hr CONT PRN IV SEE I/O RECORD Last administered on 05/26/17 18:19; Start 05/26/17 at 18:15; Stop 05/27/17 at 20: 35; Status DC Linezolid 300 ml @ 300 mls/hr Q12HR IV Last administered on 05/28/17 21:25; Start 05/26/17 at 21:00; Stop 05/29/17 at 08:25; Status DC Cefepime HCl 1 gm/ Dextrose 50 ml @ 100 mls/hr Q12HR IV ; Start 05/26/17 at 21: 00; Status UNV Cefepime HCl (Maxipime) 1 gm Q12H IVP Last administered on 05/28/17 19:39; Start 05/26/17 at 20:00; Stop 05/29/17 at 08:25; Status DC Ondansetron HCl (Zofran) 4 mg PRN Q8HRS PRN IV NAUSEA/VOMITING; Start 05/26/17 at 21:00; Stop 05/27/17 at 20:59; Status DC Bisacodyl (Dulcolax Tab) 10 mg PRN DAILY PRN PO CONSTIPATION; Start 05/27/17 at 08:45; Stop 06/05/17 at 15:34; Status DC Ferrous Sulfate (Feosol) 325 mg DAILYWBKFT PO Last administered on 06/05/17 08:39; Start 05/27/17 at 09:00; Stop 06/05/17 at 15:34; Status DC Haloperidol (Haldol) 5 mg DAILY16 PO Last administered on 06/04/17 16:54; Start 05/27/17 at 16:00; Stop 06/05/17 at 15:34; Status DC Acetaminophen/ Hydrocodone Bitart (Lortab 5/325) 1 tab PRN Q4HRS PRN PO PAIN Last administered on 06/02/17 02:45; Start 05/27/17 at 08:45; Stop 06/05/17 at 15:34; Status DC Levothyroxine Sodium (Synthroid) 125 mcg DAILY07 PO Last administered on 06:09; Start 05/28/17 at 07:00; Stop 06/05/17 at 15:34; Status DC Lidocaine (Lidoderm) 3 patch PRN DAILY PRN TD TOPICAL PAIN Last administered on 06/03/17 20:40; Start 05/27/17 at 08:45; Stop 06/05/17 at 15:34; Status DC Lisinopril (Prinivil) 20 mg DAILY08 PO Last administered on 06/03/17 09:50; Start 05/27/17 at 09:00; Stop 06/03/17 at 11:07; Status DC Nystatin (Mycostatin) 1 eusebio BID TP Last administered on 06/05/17 08:40; Start 05/27/17 at 09:00; Stop 06/05/17 at 15:34; Status DC Pioglitazone HCl (Actos) 15 mg DAILY PO Last administered on 06/05/17 08:39; Start 05/27/17 at 09:00; Stop 06/05/17 at 15:34; Status DC Tamsulosin HCl (Flomax) 0.4 mg QHS PO Last administered on 06/04/17 21:31; Start 05/27/17 at 21:00; Stop 06/05/17 at 15:34; Status DC Atorvastatin Calcium (Lipitor) 40 mg QHS PO Last administered on 06/04/17 21: 31; Start 05/27/17 at 21:00; Stop 06/05/17 at 15:34; Status DC Vitamin D (Vitamin D3) 500 unit DAILY PO Last administered on 06/05/17 08:39 ; Start 05/27/17 at 09:00; Stop 06/05/17 at 15:34; Status DC Exenatide (Byetta) 10 mcg BIDBFRMEAL SQ Last administered on 06/04/17 16:54; Start 05/27/17 at 16:30; Stop 06/05/17 at 15:34; Status DC Budesonide (Pulmicort) 0.5 mg RTBID NEB Last administered on 06/05/17 07:25; Start 05/27/17 at 09:00; Stop 06/05/17 at 15:34; Status DC Meloxicam (Mobic) 15 mg DAILY PO Last administered on 06/05/17 08:39; Start 05/27/17 at 09:00; Stop 06/05/17 at 15:34; Status DC Pantoprazole Sodium (Protonix) 40 mg DAILYAC PO Last administered on 08:39; Start 05/27/17 at 11:30; Stop 06/05/17 at 15:34; Status DC Oxycodone/ Acetaminophen (Percocet 7.5/ 325) 1 tab PRN Q4HRS PRN PO PAIN Last administered on 06/05/17 12:56; Start 05/27/17 at 08:45; Stop 06/05/17 at 15 :34; Status DC Ropinirole HCl (Requip) 0.5 mg TID PO Last administered on 06/05/17 08:38; Start 05/27/17 at 09:00; Stop 06/05/17 at 15:34; Status DC Acyclovir (Zovirax) 200 mg [id number] PO Last administered on 06/05/17 08:39; Start 05/27/17 at 09:00; Stop 06/05/17 at 15:34; Status DC Vitamin E 1,000 unit DAILY PO Last administered on 06/05/17 08:39; Start 04/03 at 09:00; Stop 06/05/17 at 15:34; Status DC Metoprolol Tartrate (Lopressor) 12.5 mg BID PO Last administered on 06/04/17 21:31; Start 05/27/17 at 09:00; Stop 06/05/17 at 15:34; Status DC Fluconazole/ Sodium Chloride 100 ml @ 100 mls/hr Q24H IV Last administered on 05/28/17 09:06; Start 05/27/17 at 10:00; Stop 05/29/17 at 08:25; Status DC Lactobacillus Rhamnosus (Culturelle) 1 cap BID PO Last administered on 08:39; Start 05/27/17 at 21:00; Stop 06/05/17 at 15:34; Status DC Hydroxyzine Pamoate (Vistaril) 25 mg PRN Q6HRS PRN PO ITCHING Last administered on 06/03/17 23:46; Start 05/28/17 at 08:45; Stop 06/05/17 at 15 :34; Status DC Lidocaine HCl (Xylocaine-Mpf 1% Vial) 2 ml 1X PRN PRN ID FOR PIC LINE INSERTION ; Start 05/28/17 at 09:45; Stop 05/29/17 at 09:44; Status DC Sodium Chloride (Normal Saline Flush) 20 ml 1X PRN PRN IV PER PROTOCOL; Start 05/28/17 at 09:45; Stop 05/29/17 at 09:44; Status DC Lidocaine/ Prilocaine (Emla) 1 eusebio 1X ONCE TP ; Start 05/28/17 at 09:45; Stop 05/28/17 at 09:49; Status DC Gadobutrol (Gadavist) 7 mmol 1X ONCE IV ; Start 05/28/17 at 16:45; Stop 05/28 at 16:46; Status DC Gadobutrol (Gadavist) 7 mmol 1X ONCE IV ; Start 05/28/17 at 16:45; Stop 05/28 at 16:46; Status DC Cefpodoxime Proxetil (Vantin) 200 mg BID PO Last administered on 06/05/17 08: 38; Start 05/29/17 at 09:00; Stop 06/05/17 at 15:34; Status DC Fluconazole (Diflucan) 200 mg DAILY PO Last administered on 06/05/17 08:38; Start 05/29/17 at 09:00; Stop 06/05/17 at 15:34; Status DC Sodium Chloride 1,000 ml @ 60 mls/hr [id number] IV Last administered on 16:58; Start 05/29/17 at 15:00; Stop 06/02/17 at 13:14; Status DC Vitamin A/Vitamin D (Vitamin A & D Ointment) 1 eusebio BID TP Last administered on 06/05/17 08:40; Start 05/30/17 at 10:45; Stop 06/05/17 at 15:34; Status DC Vitamin A/Vitamin D (Vitamin A & D Ointment) 1 eusebio PRN Q1HR PRN TP SKIN PROTECTION; Start 05/30/17 at 10:45; Stop 06/05/17 at 15:34; Status DC Furosemide (Lasix) 40 mg 1X ONCE IVP Last administered on 05/31/17 08:56; Start 05/31/17 at 08:30; Stop 05/31/17 at 08:31; Status DC Furosemide (Lasix) 40 mg 1X ONCE IVP Last administered on 06/01/17 09:43; Start 06/01/17 at 09:00; Stop 06/01/17 at 09:01; Status DC Lisinopril (Prinivil) 10 mg DAILY08 PO Last administered on 06/04/17 08:43; Start 06/04/17 at 08:00; Stop 06/05/17 at 15:34; Status DC Furosemide (Lasix) 20 mg DAILY PO Last administered on 06/05/17 08:39; Start 06/04/17 at 09:00; Stop 06/05/17 at 15:34; Status DC Active Scripts Active Citroma (Magnesium Citrate) 296 Ml Solution 296 Ml PO PRN 1X PRN 10 Days Lidocaine 1 Each Adh..patch 3 Patch TD PRN DAILY PRN 30 Days Nystatin 15 Gm Cream..g. 1 Eusebio TP BID 14 Days Flomax (Tamsulosin Hcl) 0.4 Mg Cap.er.24h 0.4 Mg PO QHS 30 Days Hydrocodone-Apap 5-325 (Hydrocodone Bit/Acetaminophen) 1 Each Tablet 1 Tab PO PRN Q4HRS PRN 30 Days Feosol (Ferrous Sulfate) 325 Mg Tablet 325 Mg PO DAILYWBKFT 30 Days [Metoprolol Tartrate] 25 MG Tablet 12.5 Mg PO BID Reported Percocet 7.5-325 Mg Tablet (Oxycodone/Acetaminophen) 1 Each Tablet 1 Tab PO PRN Q4HRS PRN Proair Hfa Inhaler (Albuterol Sulfate) 8.5 Gm Hfa.aer.ad 1 Puff INH PRN Q6HRS PRN Actos (Pioglitazone Hcl) 15 Mg Tablet 15 Mg PO DAILY Trulicity (Dulaglutide) 0.75 Mg/0.5 Ml Pen.injctr 0.75 Mg SQ Requip (Ropinirole Hcl) 0.5 Mg Tablet 0.5 Mg PO BID Vitamin D3 (Cholecalciferol (Vitamin D3)) 400 Unit Tablet 400 Unit PO DAILY Brovana (Arformoterol Tartrate) 15 Mcg/2 Ml Vial.neb 15 Mcg IH Flovent 220MCG Hfa (Fluticasone Propionate) 12 Gm Aer.w.adap 12 Gm IH Vitamin E 1,000 Unit Capsule 1,000 Unit PO Haloperidol 5 Mg Tablet 5 Mg PO Lipitor (Atorvastatin Calcium) 80 Mg Tablet 40 Mg PO Valacyclovir (Valacyclovir Hcl) 1,000 Mg Tablet 1,000 Mg PO Meloxicam 15 Mg Tablet 15 Mg PO Prilosec (Omeprazole) 10 Mg Capsule.dr 20 Mg PO Vitals/I & O Vital Sign - Last 24 Hours 06/04/17 06/04/17 06/04/17 06/04/17 19:55 20:00 20:45 21:31 Temp 97.9 97.9 Pulse 96 96 Resp 22 B/P (MAP) 124/55 (78) 124/55 Pulse Ox 96 99 O2 Delivery Nasal Cannula Nasal Cannula Nasal Cannula O2 Flow Rate 2.0 3.0 3.0 06/04/17 06/05/17 06/05/17 06/05/17 23:17 02:48 07:00 07:26 Temp 98.2 97.9 98.0 98.2 97.9 98.0 Pulse 80 72 73 Resp 19 20 20 B/P (MAP) 133/65 (87) 110/62 (78) 103/54 (70) Pulse Ox 95 96 98 97 O2 Delivery Nasal Cannula Nasal Cannula Nasal Cannula Nasal Cannula O2 Flow Rate 2.0 2.0 2.0 2.0 06/05/17 06/05/17 06/05/17 06/05/17 07:40 11:00 12:56 14:13 Temp 98.1 98.1 Pulse 83 Resp 21 B/P (MAP) 118/61 (80) Pulse Ox 99 O2 Delivery Nasal Cannula Nasal Cannula Nasal Cannula Nasal Cannula O2 Flow Rate 2.0 2.0 3.0 3.0 Intake and Output 06/04/17 06/04/17 06/05/17 15:00 23:00 07:00 Intake Total 750 ml 1525 ml 400 ml Output Total 1125 ml 1650 ml Balance 750 ml 400 ml -1250 ml CASSIDY ORNELAS MD Jun 05, 2017 17:47
--- NOTE | 2017-06-07 21:47 | PDOC3 ---
Discharge Summary [facility] Date of Admission: May 26, 2017 Discharge Date: Jun 04, 2017 Admitting Diagnosis back pain, intractable Problems: Final Diagnosis 1. Sepsis (resolved) with increased leukocytosis, hypotension and abnormal urinalysis 2. Hyponatremia 3. Acute ( new L3 compression fracture) on chronic back pain with a recent L4- 5 lumbar laminectomy and intractable pain 4. New onset atrial fibrillation, CONSULTS cardiology, rehab medicine, wound care, ID, IR, neurosurgery Brief Hospital Course Ms. Alegria is a 66 old who presented with: 1. Sepsis (resolved) with increased leukocytosis, hypotension and abnormal urinalysis - ID followed. Urine culture negative so likely from skin source, improved, now on po antibiotics and po yeast meds. WBC remains mildly elevated but she is asplenic and has myelodysplasia 2. Hyponatremia, slowly improving with IV saline. IVFs DC'd 06/02. Na stable at 130 this am, will add daily lasix 20 mg and see if BP tolerates. 3. Acute ( new L3 compression fracture) on chronic back pain with a recent L4- 5 lumbar laminectomy, IR will not do procedure due to infection risk. She has been denied LTAC and has a unaffordable co-pay for SNU, will need to be strong enough to ambulate and transfer prior to discharging home with HH, continue PT/ OT 4. New onset atrial fibrillation, rate controlled with Metoprolol 12.5mg BID, on ASA as fall risk. 5. Hypothyroidism, undertreated - dose increased to 125mcg Levothyroxine 6. Type 2 diabetes, controlled- pt continued on Actos 15mg and Byetta 10mcg BID 7. Schizophrenia, paranoid type, drinking a lot of water so will fluid restrict - continued on Haldol 5mg 8. Acute renal failure from dehydration and likely tubular necrosis, resolved with hydration. 9. non pressure inguinal ulcer from yeast infection present on admission, treated with wound care, nystatin, diflucan. 10. cellulitis of lower extremities, improved with IV now po antibiotics 11. myelodysplasia, asplenic 12. yeast dermatitis - continue meds, wound care to reassess 13. HLD- pt continued on Atorvastatin 40mg 14. HTN- pt a little more on the lower side today. Lisinopril decreased to 10mg. 15. lymphedema with venous stasis ulcer, wound care to see Problems: Disposition home with HH, PT/OT, correction CONDITION AT DISCHARGE: Improved, Stable Diet diabetic, cardiac Scheduled Cholecalciferol (Vitamin D3) (Vitamin D3), 400 UNIT PO DAILY, (Reported) Ferrous Sulfate (Feosol), 325 MG PO DAILYWBKFT Nystatin (Nystatin), 1 TOMAS TP BID Pioglitazone Hcl (Actos), 15 MG PO DAILY, (Reported) Ropinirole Hcl (Requip), 0.5 MG PO BID, (Reported) Tamsulosin Hcl (Flomax), 0.4 MG PO QHS [Metoprolol Tartrate], 12.5 MG PO BID Scheduled PRN Albuterol Sulfate (Proair Hfa Inhaler), 1 PUFF INH PRN Q6HRS PRN for SHORTNESS OF BREATH, (Reported) Hydrocodone Bit/Acetaminophen (Hydrocodone-Apap 5-325 ), 1 TAB PO PRN Q4HRS PRN for PAIN Lidocaine (Lidocaine), 3 PATCH TD PRN DAILY PRN for TOPICAL PAIN Magnesium Citrate (Citroma), 296 ML PO PRN 1X PRN for CONSTIPATION Oxycodone/Apap 7.5-325 (Percocet 7.5-325 Mg Tablet), 1 TAB PO PRN Q4HRS PRN for PAIN, (Reported) Miscellaneous Medications Arformoterol Tartrate (Brovana), 15 MCG IH, (Reported) Atorvastatin Calcium (Lipitor), 40 MG PO, (Reported) Dulaglutide (Trulicity), 0.75 MG SQ, (Reported) Fluticasone Propionate (Flovent 220MCG Hfa), 12 GM IH, (Reported) Haloperidol (Haloperidol), 5 MG PO, (Reported) Meloxicam (Meloxicam), 15 MG PO, (Reported) Omeprazole (Prilosec), 20 MG PO, (Reported) Valacyclovir Hcl (Valacyclovir), 1,000 MG PO, (Reported) Vitamin E (Vitamin E), 1,000 UNIT PO, (Reported) Discontinued Medications Oxybutynin Chloride (Oxybutynin Chloride), 5 MG PO, (Reported) Oxycodone Hcl/Acetaminophen (Oxycodon-Acetaminophen 2.5-325), 1 EACH PO PRN Q6HRS PRN for PAIN, (Reported) Follow Up 2 weeks Prosper MEEHAN MD Jun 07, 2017 21:47
== END 2017-06-05 15:25 | disposition home health service (06) | DRG 871 ==
LOC: ER 11:51 → 1 WEST ICU 14:55 → 2 NORTH 05-27 20:30
PROVIDERS: ADMIT Family Medicine; ATTEND Family Medicine
DX: A41.9 Sepsis, unspecified organism (principal); N17.0 Acute kidney failure with tubular necrosis; L89.159 Pressure ulcer of sacral region, unspecified stage; J96.10 Chronic respiratory failure, unspecified whether with hypoxia or hypercapnia; E11.22 Type 2 diabetes mellitus with diabetic chronic kidney disease; E11.42 Type 2 diabetes mellitus with diabetic polyneuropathy; E66.01 Morbid (severe) obesity due to excess calories; M48.56XA Collapsed vertebra, not elsewhere classified, lumbar region, initial encounter for fracture; E87.1 Hypo-osmolality and hyponatremia; Z68.43 Body mass index [BMI] 50.0-59.9, adult; F20.0 Paranoid schizophrenia; I13.0 Hypertensive heart and chronic kidney disease with heart failure and stage 1 through stage 4 chronic kidney disease, or unspecified chronic kidney disease; I50.32 Chronic diastolic (congestive) heart failure; L03.115 Cellulitis of right lower limb; L03.116 Cellulitis of left lower limb; L97.909 Non-pressure chronic ulcer of unspecified part of unspecified lower leg with unspecified severity; N39.0 Urinary tract infection, site not specified; W18.39XA Other fall on same level, initial encounter; E11.622 Type 2 diabetes mellitus with other skin ulcer; B37.2 Candidiasis of skin and nail; I48.91 Unspecified atrial fibrillation; B96.20 Unspecified Escherichia coli [E. coli] as the cause of diseases classified elsewhere; E03.9 Hypothyroidism, unspecified; E78.00 Pure hypercholesterolemia, unspecified; Z88.0 Allergy status to penicillin; Z88.8 Allergy status to other drugs, medicaments and biological substances; E78.5 Hyperlipidemia, unspecified; E86.0 Dehydration; E87.6 Hypokalemia; G89.29 Other chronic pain; I83.009 Varicose veins of unspecified lower extremity with ulcer of unspecified site; I89.0 Lymphedema, not elsewhere classified; J44.9 Chronic obstructive pulmonary disease, unspecified; K21.9 Gastro-esophageal reflux disease without esophagitis; K59.09 Other constipation; M16.0 Bilateral primary osteoarthritis of hip; M17.0 Bilateral primary osteoarthritis of knee; K21.0 Gastro-esophageal reflux disease with esophagitis; N18.9 Chronic kidney disease, unspecified; R29.6 Repeated falls; D46.9 Myelodysplastic syndrome, unspecified; Z16.11 Resistance to penicillins; Z82.49 Family history of ischemic heart disease and other diseases of the circulatory system; Z85.038 Personal history of other malignant neoplasm of large intestine; Z87.891 Personal history of nicotine dependence; Z90.81 Acquired absence of spleen; Z91.410 Personal history of adult physical and sexual abuse; Z91.411 Personal history of adult psychological abuse; Z91.81 History of falling; Z99.81 Dependence on supplemental oxygen; Z79.4 Long term (current) use of insulin; Y93.89 Activity, other specified; Y92.098 Other place in other non-institutional residence as the place of occurrence of the external cause; Y99.8 Other external cause status; Z98.49 Cataract extraction status, unspecified eye; Z90.49 Acquired absence of other specified parts of digestive tract; Z98.51 Tubal ligation status
CPT/HCPCS: 36415; 71010; 72100; 72148; 73521; 73560; 80048; 80076; 81001; 82553; 82962; 83605; 83690; 83735; 83880; 84300; 84443; 84484; 85007; 85025; 85610; 87040; 87086; 87641; 93005; 94640; 94760; 96365; J0692; J1450; J1940; J2020; J3010; J3490; J7030; J7626; Q0177; 97110; 97116; 97530; 97535; 99291-25

== ENCOUNTER 2017-06-12 22:30 | Inpatient (IN) | payer BC ==
[2017-06-12] MEDS: IV NORMAL SALINE 1000ML BAG 1,000 ML IV (23:35)
[2017-06-12 23:36] LABS: ADD MAN DIFF? NO
[2017-06-12 23:41] LABS: BASO % 0 % (0-3); EOS # 0.1 x10^3/uL (0.0-0.7); EOS % 1 % (0-3); HEMATOCRIT 27.8 % (36.0-47.0); LYMPH # 0.7 x10^3/uL (1.0-4.8); LYMPH % 8 % (24-48); MEAN CORPUSCULAR HEMOGLOBIN 29 pg (25-35); MEAN CORPUSCULAR HGB CONC 32 g/dL (31-37); MEAN CORPUSCULAR VOLUME 91 fL (79-100); MONO # 0.8 x10^3/uL (0.0-1.1); MONO % 9 % (0-9); NEUT # 7.4 x10^3uL (1.8-7.7); NEUT % 82 % (31-73); PLATELET COUNT 555 x10^3/uL (140-400); RED BLOOD COUNT 3.06 x10^6/uL (3.50-5.40)
[2017-06-12 23:45] LABS: BILIRUBIN,URINE SMALL (NEG); CLARITY,URINE CLEAR; COLOR,URINE YELLOW; GLUCOSE,URINE NEGATIVE (NEG); NITRITE,URINE NEGATIVE (NEG); PH,URINE 5.5; PROTEIN,URINE 100 mg/dL (NEG-TRACE); UROBILINOGEN,URINE 0.2 mg/dL (0.2 mg/dL)
[2017-06-12 23:46] LABS: AMPHETAMINE/METHAMPHETAMINE NEG (NEG); BARBITURATES NEG (NEG); BENZODIAZEPINES NEG (NEG); CANNABINOIDS NEG (NEG); COCAINE NEG (NEG); ETHANOL, URINE NEG (NEG); METHADONE NEG (NEG); OPIATES POS (NEG); PHENCYCLIDINE NEG (NEG)
[2017-06-12 23:48] LABS: ANION GAP 10 (6-14); BLOOD UREA NITROGEN 18 mg/dL (7-20); CALCIUM 8.9 mg/dL (8.5-10.1); CARBON DIOXIDE 27 mmol/L (21-32); CHLORIDE 94 mmol/L (98-107); CREATININE 1.5 mg/dL (0.6-1.0); GFR 34.7; GLUCOSE 122 mg/dL (70-99); INR 1.3 (0.8-1.1); POTASSIUM 4.3 mmol/L (3.5-5.1); PROTHROMBIN TIME PATIENT 15.6 SEC (11.7-14.0); SODIUM 131 mmol/L (136-145)
[2017-06-12 23:54] LABS: ALBUMIN 2.6 g/dL (3.4-5.0); ALK PHOS 182 U/L (46-116); ALT (SGPT) 14 U/L (14-59); AST (SGOT) 20 U/L (15-37); DIRECT BILIRUBIN 0.1 mg/dL (0.0-0.2); LIPASE 45 U/L (73-393); MAGNESIUM 1.5 mg/dL (1.8-2.4); TOTAL BILIRUBIN 0.3 mg/dL (0.2-1.0); TOTAL PROTEIN 6.4 g/dL (6.4-8.2)
[2017-06-12 23:55] LABS: BACTERIA,URINE FEW /HPF (0-FEW); HYALINE CASTS, URINE MANY /HPF; SQUAMOUS EPITHELIAL CELL,UR OCC /LPF
[2017-06-12 23:56] LABS: TROPONINI < 0.017 ng/mL (0.000-0.055)
[2017-06-13] LABS: NT-PRO BNP 3152 pg/mL (0-124)
[2017-06-13] LABS: CKMB INDEX 1.6 % (0-4); CKMB MASS 2.5 ng/mL (0.0-3.6); CREATINE KINASE 154 U/L (26-192)
[2017-06-13 00:01] LABS: THYROID STIM HORMONE (TSH) 14.295 uIU/mL (0.358-3.74)
[2017-06-13 00:09] LABS: LACTIC ACID 1.6 mmol/L (0.4-2.0)
[2017-06-13] MEDS ORDERED: ONDANSETRON PF 4 MG/2 ML VIAL. IV (00:15)
[2017-06-13 02:44] LABS: LACTIC ACID 1.6 mmol/L (0.4-2.0)
[2017-06-13 03:16] LABS: POC GLUCOSE 116 mg/dL (70-99)
[2017-06-13] MEDS ORDERED: levOFLOXacin PER PHARMACY. MC (04:00)
[2017-06-13] MEDS: IV NORMAL SALINE 1000ML BAG 1,000 ML IV ×4 (05:30→20:24)
[2017-06-13] MEDS: NOREPINEPHRIN PREMIX 250 ML IV (05:55)
[2017-06-13] MEDS: VANCOMYCIN 2 GM in IV DEXTROSE 5 %-0.2 % NACL 500 ML IV (05:55)
[2017-06-13] MEDS: VANCOMYCIN PER PHARMACY MC (05:56)
[2017-06-13 06:52] LABS: LACTIC ACID 1.4 mmol/L (0.4-2.0)
[2017-06-13 06:56] LABS: TROPONINI < 0.017 ng/mL (0.000-0.055)
[2017-06-13] MEDS ORDERED: DEXTROSE 50% 25 GM / 50ML DISP.SYRIN. IV (07:45)
[2017-06-13] MEDS: BUDESONIDE 0.5 MG/2 ML NEBU. NEB ×3 (08:00→19:40)
[2017-06-13] MEDS: INSULIN ASPART 300 UNITS/3 ML INSULN.PEN SQ ×3 (08:00→17:00)
[2017-06-13 08:06] LABS: PROCALCITONIN < 0.10 ng/mL (0.00-0.10)
[2017-06-13 08:52] LABS: % SAT IRON 5 % (15-34); IRON,SERUM 17 ug/dL (50-170)
[2017-06-13] MEDS: HALOPERIDOL 5 MG TABLET. PO (09:08)
[2017-06-13] MEDS: NYSTATIN 100,000 UNIT/GM TOPICAL CREAM 15GM TUBE. TP ×2 (09:08→21:00)
[2017-06-13] MEDS: valACYclovir 500 MG TABLET. PO (09:08)
[2017-06-13] MEDS: PIOGLITAZONE 15 MG TABLET. PO (09:08)
[2017-06-13] MEDS: PANTOPRAZOLE 40 MG TABLET.DR. PO (09:08)
[2017-06-13] MEDS: FERROUS SULFATE 325 MG TABLET. PO (09:08)
[2017-06-13] MEDS: rOPINIRole 0.25 MG TABLET. PO ×2 (09:08→20:09)
[2017-06-13] MEDS: LEVOTHYROXINE 125 MCG TABLET PO (09:10)
[2017-06-13 09:45] LABS: CREATININE 1.3 mg/dL (0.6-1.0)
[2017-06-13 10:02] LABS: FREE T4 1.11 ng/dL (0.76-1.46)
[2017-06-13] MEDS: MICAFUNGIN 100 MG in IV DEXTROSE 5% 100 ML IV (10:52)
[2017-06-13] MEDS: MEROPENEM IV Push 500 MG VIAL. IVP ×3 (11:35→23:48)
[2017-06-13 11:44] LABS: POC GLUCOSE 148 mg/dL (70-99)
[2017-06-13] MEDS ORDERED: MEROPENEM 500 MG in IV NORMAL SALINE 50ML 50 ML IV (12:00)
[2017-06-13] MEDS: fentaNYL PF VIAL 100 MCG/2 ML VIAL IV ×2 (12:29→23:49)
[2017-06-13 13:05] LABS: TROPONINI < 0.017 ng/mL (0.000-0.055)
[2017-06-13 13:13] LABS: MRSA BY PCR Negative (Negative)
[2017-06-13 13:14] LABS: INFLUENZA A PATIENT NEGATIVE (NEGATIVE); INFLUENZA B PATIENT NEGATIVE (NEGATIVE); OBC FLU VALID
[2017-06-13 17:45] LABS: POC GLUCOSE 111 mg/dL (70-99)
[2017-06-13] MEDS: HYDROcodone/APAP 5/325MG 1 TAB TABLET PO (19:14)
[2017-06-13] MEDS: ATORVASTATIN CALCIUM 40 MG TABLET. PO (20:09)
[2017-06-13] MEDS: TAMSULOSIN 0.4 MG CAP.ER.24H. PO (20:09)
[2017-06-13] MEDS: LACTOBACILLUS RHAMNOSUS GG 1 CAPSULE. PO (20:09)
[2017-06-13] MEDS: ALPRAZolam 0.25 MG TABLET PO (20:09)
[2017-06-14] MEDS: ALPRAZolam 0.25 MG TABLET PO ×2 (02:01→20:37)
[2017-06-14] MEDS: ALBUTEROL SULFATE 2.5 MG/3 ML NEBU. NEB ×2 (02:12→15:46)
[2017-06-14 04:26] LABS: ADD MAN DIFF? NO
[2017-06-14 04:45] LABS: BASO # 0.1 x10^3/uL (0.0-0.2); BASO % 1 % (0-3); EOS % 0 % (0-3); HEMOGLOBIN 8.7 g/dL (12.0-15.5); LYMPH # 1.4 x10^3/uL (1.0-4.8); LYMPH % 16 % (24-48); MEAN CORPUSCULAR HEMOGLOBIN 30 pg (25-35); MEAN CORPUSCULAR HGB CONC 33 g/dL (31-37); MEAN CORPUSCULAR VOLUME 92 fL (79-100); MONO # 0.9 x10^3/uL (0.0-1.1); MONO % 11 % (0-9); NEUT # 6.3 x10^3uL (1.8-7.7); NEUT % 72 % (31-73); PLATELET COUNT 505 x10^3/uL (140-400); RED BLOOD COUNT 2.93 x10^6/uL (3.50-5.40); RED CELL DISTRIBUTION WIDTH 15.7 % (11.5-14.5); WHITE BLOOD COUNT 8.8 x10^3/uL (4.0-11.0)
[2017-06-14] MEDS ORDERED: VANCOMYCIN 2 GM in IV DEXTROSE 5 %-0.2 % NACL 500 ML IV (05:00)
[2017-06-14] MEDS: MEROPENEM IV Push 500 MG VIAL. IVP ×3 (05:41→17:36)
[2017-06-14 06:00] LABS: ALBUMIN 2.4 g/dL (3.4-5.0); ALBUMIN/GLOBULIN RATIO 0.7 (1.0-1.7); ALK PHOS 171 U/L (46-116); ANION GAP 10 (6-14); AST (SGOT) 13 U/L (15-37); BLOOD UREA NITROGEN 15 mg/dL (7-20); BUN/CREATININE RATIO 15 (6-20); CALCIUM 8.3 mg/dL (8.5-10.1); CARBON DIOXIDE 24 mmol/L (21-32); CHLORIDE 95 mmol/L (98-107); GFR 55.5; GLUCOSE 111 mg/dL (70-99); POTASSIUM 4.9 mmol/L (3.5-5.1); SODIUM 129 mmol/L (136-145); TOTAL BILIRUBIN 0.3 mg/dL (0.2-1.0); TOTAL PROTEIN 5.7 g/dL (6.4-8.2)
[2017-06-14 06:10] LABS: ALT (SGPT) 11 U/L (14-59)
[2017-06-14] MEDS: INSULIN ASPART 300 UNITS/3 ML INSULN.PEN SQ ×3 (08:00→17:00)
[2017-06-14] MEDS: BUDESONIDE 0.5 MG/2 ML NEBU. NEB ×2 (08:15→19:50)
[2017-06-14] MEDS: LACTOBACILLUS RHAMNOSUS GG 1 CAPSULE. PO ×2 (08:20→20:37)
[2017-06-14] MEDS: FERROUS SULFATE 325 MG TABLET. PO (08:20)
[2017-06-14] MEDS: rOPINIRole 0.25 MG TABLET. PO ×2 (08:20→20:37)
[2017-06-14] MEDS: PANTOPRAZOLE 40 MG TABLET.DR. PO (08:20)
[2017-06-14] MEDS: PIOGLITAZONE 15 MG TABLET. PO (08:21)
[2017-06-14] MEDS: HALOPERIDOL 5 MG TABLET. PO (08:21)
[2017-06-14] MEDS: LEVOTHYROXINE 125 MCG TABLET PO (08:22)
[2017-06-14] MEDS: valACYclovir 500 MG TABLET. PO (08:27)
[2017-06-14 08:43] LABS: POC GLUCOSE 95 mg/dL (70-99)
[2017-06-14] MEDS: NYSTATIN 100,000 UNIT/GM TOPICAL CREAM 15GM TUBE. TP ×2 (09:00→20:38)
[2017-06-14] MEDS: IV NORMAL SALINE 1000ML BAG 1,000 ML IV (11:36)
[2017-06-14] MEDS: MICAFUNGIN 100 MG in IV DEXTROSE 5% 100 ML IV (12:01)
[2017-06-14 12:12] LABS: POC GLUCOSE 136 mg/dL (70-99)
[2017-06-14] MEDS: HYDROcodone/APAP 5/325MG 1 TAB TABLET PO ×2 (13:30→20:38)
[2017-06-14 17:45] LABS: POC GLUCOSE 136 mg/dL (70-99)
[2017-06-14] MEDS: TAMSULOSIN 0.4 MG CAP.ER.24H. PO (20:37)
[2017-06-14] MEDS: ATORVASTATIN CALCIUM 40 MG TABLET. PO (20:37)
[2017-06-14] MEDS: NYSTATIN TOPICAL POWDER 15GM BOTTLE. TP (20:37)
[2017-06-14] MEDS: ALBUMIN HUMAN 25% 100 ML IV (21:20)
[2017-06-14] MEDS: FUROSEMIDE 40 MG/4 ML VIAL. IVP (22:39)
[2017-06-15] MEDS: MEROPENEM IV Push 500 MG VIAL. IVP ×5 (00:02→23:12)
[2017-06-15] MEDS: IV NORMAL SALINE 1000ML BAG 1,000 ML IV ×2 (01:54→16:12)
[2017-06-15] MEDS: ALBUTEROL SULFATE 2.5 MG/3 ML NEBU. NEB ×4 (04:01→20:12)
[2017-06-15 04:09] LABS: POC GLUCOSE 137 mg/dL (70-99)
[2017-06-15] MEDS: HYDROcodone/APAP 5/325MG 1 TAB TABLET PO ×2 (04:43→11:30)
[2017-06-15 06:03] LABS: ANION GAP 10 (6-14); BLOOD UREA NITROGEN 16 mg/dL (7-20); CALCIUM 8.8 mg/dL (8.5-10.1); CARBON DIOXIDE 26 mmol/L (21-32); CHLORIDE 95 mmol/L (98-107); GFR 55.5; GLUCOSE 95 mg/dL (70-99); POTASSIUM 4.1 mmol/L (3.5-5.1); SODIUM 131 mmol/L (136-145)
[2017-06-15] MEDS: INSULIN ASPART 300 UNITS/3 ML INSULN.PEN SQ ×3 (08:00→18:03)
[2017-06-15] MEDS: rOPINIRole 0.25 MG TABLET. PO ×2 (08:30→20:06)
[2017-06-15] MEDS: HALOPERIDOL 5 MG TABLET. PO (08:30)
[2017-06-15] MEDS: PANTOPRAZOLE 40 MG TABLET.DR. PO (08:30)
[2017-06-15] MEDS: PIOGLITAZONE 15 MG TABLET. PO (08:30)
[2017-06-15] MEDS: LEVOTHYROXINE 125 MCG TABLET PO (08:30)
[2017-06-15] MEDS: FERROUS SULFATE 325 MG TABLET. PO (08:30)
[2017-06-15] MEDS: LACTOBACILLUS RHAMNOSUS GG 1 CAPSULE. PO ×2 (08:30→20:07)
[2017-06-15] MEDS: valACYclovir 500 MG TABLET. PO (08:30)
[2017-06-15] MEDS: NYSTATIN TOPICAL POWDER 15GM BOTTLE. TP ×2 (08:31→20:08)
[2017-06-15] MEDS: NYSTATIN 100,000 UNIT/GM TOPICAL CREAM 15GM TUBE. TP ×2 (08:32→20:07)
[2017-06-15] MEDS: FUROSEMIDE 40 MG/4 ML VIAL. IVP (08:34)
[2017-06-15] MEDS: ALPRAZolam 0.25 MG TABLET PO (08:39)
[2017-06-15] MEDS: BUDESONIDE 0.5 MG/2 ML NEBU. NEB ×2 (09:20→20:12)
[2017-06-15] MEDS: MICAFUNGIN 100 MG in IV DEXTROSE 5% 100 ML IV (17:57)
[2017-06-15 18:15] LABS: POC GLUCOSE 159 mg/dL (70-99)
[2017-06-15] MEDS: ATORVASTATIN CALCIUM 40 MG TABLET. PO (20:06)
[2017-06-15] MEDS: TAMSULOSIN 0.4 MG CAP.ER.24H. PO (20:07)
[2017-06-16] MEDS: HYDROcodone/APAP 5/325MG 1 TAB TABLET PO ×2 (03:03→18:35)
[2017-06-16] MEDS: ALPRAZolam 0.25 MG TABLET PO ×2 (03:03→20:31)
[2017-06-16 05:41] LABS: BASO % 1 % (0-3); EOS # 0.2 x10^3/uL (0.0-0.7); EOS % 2 % (0-3); HEMATOCRIT 26.8 % (36.0-47.0); HEMOGLOBIN 8.7 g/dL (12.0-15.5); LYMPH % 15 % (24-48); MEAN CORPUSCULAR HEMOGLOBIN 29 pg (25-35); MEAN CORPUSCULAR HGB CONC 33 g/dL (31-37); MEAN CORPUSCULAR VOLUME 90 fL (79-100); MONO # 1.2 x10^3/uL (0.0-1.1); MONO % 18 % (0-9); NEUT # 4.3 x10^3uL (1.8-7.7); NEUT % 64 % (31-73); PLATELET COUNT 573 x10^3/uL (140-400); RED BLOOD COUNT 2.99 x10^6/uL (3.50-5.40); RED CELL DISTRIBUTION WIDTH 15.8 % (11.5-14.5); WHITE BLOOD COUNT 6.7 x10^3/uL (4.0-11.0)
[2017-06-16] MEDS: LEVOTHYROXINE 125 MCG TABLET PO (06:00)
[2017-06-16] MEDS: MEROPENEM IV Push 500 MG VIAL. IVP ×3 (06:00→17:10)
[2017-06-16 06:07] LABS: ADD MAN DIFF? YES
[2017-06-16] MEDS: IV NORMAL SALINE 500ML BAG 500 ML IV (06:18)
[2017-06-16 06:43] LABS: ANION GAP 9 (6-14); BLOOD UREA NITROGEN 15 mg/dL (7-20); CALCIUM 8.9 mg/dL (8.5-10.1); CARBON DIOXIDE 25 mmol/L (21-32); CHLORIDE 94 mmol/L (98-107); CREATININE 0.8 mg/dL (0.6-1.0); GFR 71.8; GLUCOSE 98 mg/dL (70-99); SODIUM 128 mmol/L (136-145)
[2017-06-16] MEDS: ALBUTEROL SULFATE 2.5 MG/3 ML NEBU. NEB ×3 (07:42→19:46)
[2017-06-16] MEDS: BUDESONIDE 0.5 MG/2 ML NEBU. NEB ×2 (07:42→19:46)
[2017-06-16] MEDS: LACTOBACILLUS RHAMNOSUS GG 1 CAPSULE. PO ×2 (07:49→20:12)
[2017-06-16] MEDS: valACYclovir 500 MG TABLET. PO (07:49)
[2017-06-16] MEDS: HALOPERIDOL 5 MG TABLET. PO (07:49)
[2017-06-16] MEDS: INSULIN ASPART 300 UNITS/3 ML INSULN.PEN SQ ×3 (07:49→17:00)
[2017-06-16] MEDS: rOPINIRole 0.25 MG TABLET. PO ×2 (07:50→20:12)
[2017-06-16] MEDS: PANTOPRAZOLE 40 MG TABLET.DR. PO (07:50)
[2017-06-16] MEDS: NYSTATIN TOPICAL POWDER 15GM BOTTLE. TP ×2 (07:51→20:12)
[2017-06-16] MEDS: NYSTATIN 100,000 UNIT/GM TOPICAL CREAM 15GM TUBE. TP ×2 (07:51→20:12)
[2017-06-16] MEDS: FERROUS SULFATE 325 MG TABLET. PO (07:53)
[2017-06-16] MEDS: PIOGLITAZONE 15 MG TABLET. PO (07:53)
[2017-06-16 07:58] LABS: POC GLUCOSE 129 mg/dL (70-99)
[2017-06-16] MEDS: FUROSEMIDE 40 MG/4 ML VIAL. IVP ×2 (09:47→15:42)
[2017-06-16] MEDS: LIDOCAINE (700MG/PATCH) PATCH. TD (09:48)
[2017-06-16 10:14] LABS: % EOS 2 % (0-5); % LYMPHS 17 % (24-48); % MONOS 9 % (0-10); % SEGS 72 % (35-66); PLT ESTIMATE INCREASED (ADEQUATE)
[2017-06-16] MEDS: MICAFUNGIN 100 MG in IV NORMAL SALINE 100ML 100 ML IV (11:53)
[2017-06-16 12:01] LABS: POC GLUCOSE 131 mg/dL (70-99)
[2017-06-16 17:17] LABS: POC GLUCOSE 126 mg/dL (70-99)
[2017-06-16] MEDS: TAMSULOSIN 0.4 MG CAP.ER.24H. PO (20:12)
[2017-06-16] MEDS: ATORVASTATIN CALCIUM 40 MG TABLET. PO (20:12)
[2017-06-17] MEDS: MEROPENEM IV Push 500 MG VIAL. IVP ×5 (00:14→23:31)
[2017-06-17 04:23] LABS: ADD MAN DIFF? NO
[2017-06-17 04:45] LABS: BASO % 1 % (0-3); EOS # 0.3 x10^3/uL (0.0-0.7); EOS % 5 % (0-3); HEMOGLOBIN 9.3 g/dL (12.0-15.5); LYMPH # 1.3 x10^3/uL (1.0-4.8); LYMPH % 22 % (24-48); MEAN CORPUSCULAR HEMOGLOBIN 29 pg (25-35); MEAN CORPUSCULAR HGB CONC 31 g/dL (31-37); MEAN CORPUSCULAR VOLUME 94 fL (79-100); MONO # 1.4 x10^3/uL (0.0-1.1); MONO % 24 % (0-9); NEUT # 2.8 x10^3uL (1.8-7.7); NEUT % 49 % (31-73); PLATELET COUNT 585 x10^3/uL (140-400); RED BLOOD COUNT 3.18 x10^6/uL (3.50-5.40); RED CELL DISTRIBUTION WIDTH 16.2 % (11.5-14.5); WHITE BLOOD COUNT 5.8 x10^3/uL (4.0-11.0)
[2017-06-17 05:54] LABS: ANION GAP 9 (6-14); BLOOD UREA NITROGEN 13 mg/dL (7-20); CALCIUM 8.9 mg/dL (8.5-10.1); CARBON DIOXIDE 25 mmol/L (21-32); CHLORIDE 94 mmol/L (98-107); CREATININE 0.8 mg/dL (0.6-1.0); GFR 71.8; GLUCOSE 90 mg/dL (70-99); SODIUM 128 mmol/L (136-145)
[2017-06-17] MEDS: LEVOTHYROXINE 125 MCG TABLET PO (06:00)
[2017-06-17] MEDS: HYDROcodone/APAP 5/325MG 1 TAB TABLET PO ×3 (06:02→23:37)
[2017-06-17] MEDS: INSULIN ASPART 300 UNITS/3 ML INSULN.PEN SQ (07:09)
[2017-06-17] MEDS: BUDESONIDE 0.5 MG/2 ML NEBU. NEB ×2 (08:07→19:38)
[2017-06-17] MEDS: ALBUTEROL SULFATE 2.5 MG/3 ML NEBU. NEB ×3 (08:07→19:38)
[2017-06-17] MEDS: LACTOBACILLUS RHAMNOSUS GG 1 CAPSULE. PO ×2 (08:37→19:56)
[2017-06-17] MEDS: HALOPERIDOL 5 MG TABLET. PO (08:38)
[2017-06-17] MEDS: rOPINIRole 0.25 MG TABLET. PO ×2 (08:38→19:56)
[2017-06-17] MEDS: FERROUS SULFATE 325 MG TABLET. PO (08:38)
[2017-06-17] MEDS: PIOGLITAZONE 15 MG TABLET. PO (08:38)
[2017-06-17] MEDS: PANTOPRAZOLE 40 MG TABLET.DR. PO (08:38)
[2017-06-17] MEDS: valACYclovir 500 MG TABLET. PO (08:38)
[2017-06-17] MEDS: VITS A & D/LANOLIN TOPICAL OINTMENT 56GM TUBE. TP (08:42)
[2017-06-17] MEDS: NYSTATIN 100,000 UNIT/GM TOPICAL CREAM 15GM TUBE. TP ×2 (08:42→19:57)
[2017-06-17] MEDS: NYSTATIN TOPICAL POWDER 15GM BOTTLE. TP ×2 (08:42→19:57)
[2017-06-17] MEDS ORDERED: DOCUSATE SODIUM 100 MG CAPSULE. PO (09:30)
[2017-06-17] MEDS: FUROSEMIDE 20 MG/2 ML VIAL. IVP (10:00)
[2017-06-17] MEDS: MICAFUNGIN 100 MG in IV NORMAL SALINE 100ML 100 ML IV (11:00)
[2017-06-17] MEDS: LIDOCAINE (700MG/PATCH) PATCH. TD (19:54)
[2017-06-17] MEDS: ATORVASTATIN CALCIUM 40 MG TABLET. PO (19:56)
[2017-06-17] MEDS: ALPRAZolam 0.25 MG TABLET PO (19:56)
[2017-06-17] MEDS: TAMSULOSIN 0.4 MG CAP.ER.24H. PO (19:56)
[2017-06-18] MEDS: HALOPERIDOL LACTATE 5 MG/ML VIAL. IVP (02:34)
[2017-06-18 05:12] LABS: ADD MAN DIFF? NO
[2017-06-18 05:29] LABS: BASO # 0.1 x10^3/uL (0.0-0.2); BASO % 1 % (0-3); EOS # 0.3 x10^3/uL (0.0-0.7); EOS % 6 % (0-3); HEMATOCRIT 26.7 % (36.0-47.0); HEMOGLOBIN 8.5 g/dL (12.0-15.5); LYMPH # 1.5 x10^3/uL (1.0-4.8); LYMPH % 29 % (24-48); MEAN CORPUSCULAR HEMOGLOBIN 29 pg (25-35); MEAN CORPUSCULAR HGB CONC 32 g/dL (31-37); MEAN CORPUSCULAR VOLUME 91 fL (79-100); MONO # 1.2 x10^3/uL (0.0-1.1); MONO % 23 % (0-9); NEUT # 2.2 x10^3uL (1.8-7.7); NEUT % 41 % (31-73); PLATELET COUNT 562 x10^3/uL (140-400); RED BLOOD COUNT 2.95 x10^6/uL (3.50-5.40); RED CELL DISTRIBUTION WIDTH 15.9 % (11.5-14.5); WHITE BLOOD COUNT 5.3 x10^3/uL (4.0-11.0)
[2017-06-18] MEDS: MEROPENEM IV Push 500 MG VIAL. IVP ×3 (05:35→17:08)
[2017-06-18 05:55] LABS: ANION GAP 8 (6-14); BLOOD UREA NITROGEN 15 mg/dL (7-20); CALCIUM 8.9 mg/dL (8.5-10.1); CARBON DIOXIDE 28 mmol/L (21-32); CHLORIDE 93 mmol/L (98-107); GFR 55.5; GLUCOSE 85 mg/dL (70-99); POTASSIUM 4.1 mmol/L (3.5-5.1); SODIUM 129 mmol/L (136-145)
[2017-06-18 05:57] LABS: MAGNESIUM 1.5 mg/dL (1.8-2.4)
[2017-06-18] MEDS: ALBUTEROL SULFATE 2.5 MG/3 ML NEBU. NEB ×2 (08:33→15:57)
[2017-06-18] MEDS: BUDESONIDE 0.5 MG/2 ML NEBU. NEB ×2 (08:33→19:48)
[2017-06-18] MEDS: MAGNESIUM SULFATE 2GM 50 ML IV (09:37)
[2017-06-18] MEDS: FUROSEMIDE 20 MG/2 ML VIAL. IVP ×2 (09:38→20:44)
[2017-06-18] MEDS: PANTOPRAZOLE 40 MG TABLET.DR. PO (09:38)
[2017-06-18] MEDS: rOPINIRole 0.25 MG TABLET. PO ×2 (09:38→20:44)
[2017-06-18] MEDS: HALOPERIDOL 5 MG TABLET. PO (09:39)
[2017-06-18] MEDS: LACTOBACILLUS RHAMNOSUS GG 1 CAPSULE. PO ×2 (09:39→20:44)
[2017-06-18] MEDS: FERROUS SULFATE 325 MG TABLET. PO (09:39)
[2017-06-18] MEDS: LEVOTHYROXINE 125 MCG TABLET PO (09:39)
[2017-06-18] MEDS: valACYclovir 500 MG TABLET. PO (09:39)
[2017-06-18] MEDS: PIOGLITAZONE 15 MG TABLET. PO (09:39)
[2017-06-18] MEDS: VITS A & D/LANOLIN TOPICAL OINTMENT 56GM TUBE. TP (09:40)
[2017-06-18] MEDS: NYSTATIN TOPICAL POWDER 15GM BOTTLE. TP ×2 (09:40→20:44)
[2017-06-18] MEDS: NYSTATIN 100,000 UNIT/GM TOPICAL CREAM 15GM TUBE. TP ×2 (09:40→20:45)
[2017-06-18] MEDS: MICAFUNGIN 100 MG in IV NORMAL SALINE 100ML 100 ML IV (11:19)
[2017-06-18] MEDS: ALPRAZolam 0.25 MG TABLET PO ×2 (16:31→20:44)
[2017-06-18] MEDS: HYDROcodone/APAP 5/325MG 1 TAB TABLET PO (16:31)
[2017-06-18] MEDS: IPRATRPIUM/ALBUTEROL 0.5/2.5MG 3 ML NEBU. NEB (19:48)
[2017-06-18] MEDS: TAMSULOSIN 0.4 MG CAP.ER.24H. PO (20:44)
[2017-06-18] MEDS: ATORVASTATIN CALCIUM 40 MG TABLET. PO (20:44)
[2017-06-19] MEDS: MEROPENEM IV Push 500 MG VIAL. IVP ×4 (00:05→17:14)
[2017-06-19 05:55] LABS: ANION GAP 8 (6-14); BLOOD UREA NITROGEN 18 mg/dL (7-20); CALCIUM 9.2 mg/dL (8.5-10.1); CARBON DIOXIDE 27 mmol/L (21-32); CHLORIDE 92 mmol/L (98-107); GFR 55.5; GLUCOSE 87 mg/dL (70-99); MAGNESIUM 1.9 mg/dL (1.8-2.4); POTASSIUM 3.9 mmol/L (3.5-5.1); SODIUM 127 mmol/L (136-145)
[2017-06-19] MEDS: IPRATRPIUM/ALBUTEROL 0.5/2.5MG 3 ML NEBU. NEB ×4 (07:20→19:49)
[2017-06-19] MEDS: BUDESONIDE 0.5 MG/2 ML NEBU. NEB ×2 (07:20→19:49)
[2017-06-19] MEDS: LACTOBACILLUS RHAMNOSUS GG 1 CAPSULE. PO ×2 (09:11→22:10)
[2017-06-19] MEDS: VITS A & D/LANOLIN TOPICAL OINTMENT 56GM TUBE. TP (09:11)
[2017-06-19] MEDS: NYSTATIN TOPICAL POWDER 15GM BOTTLE. TP ×2 (09:11→23:57)
[2017-06-19] MEDS: valACYclovir 500 MG TABLET. PO (09:11)
[2017-06-19] MEDS: NYSTATIN 100,000 UNIT/GM TOPICAL CREAM 15GM TUBE. TP ×2 (09:11→23:58)
[2017-06-19] MEDS: FERROUS SULFATE 325 MG TABLET. PO (09:12)
[2017-06-19] MEDS: HALOPERIDOL 5 MG TABLET. PO (09:12)
[2017-06-19] MEDS: rOPINIRole 0.25 MG TABLET. PO ×2 (09:12→22:10)
[2017-06-19] MEDS: PIOGLITAZONE 15 MG TABLET. PO (09:12)
[2017-06-19] MEDS: PANTOPRAZOLE 40 MG TABLET.DR. PO (09:12)
[2017-06-19] MEDS: LEVOTHYROXINE 125 MCG TABLET PO (09:12)
[2017-06-19] MEDS: ALBUMIN HUMAN 25% 100 ML IV ×3 (09:26→22:07)
[2017-06-19] MEDS: FUROSEMIDE 40 MG/4 ML VIAL. IVP ×3 (09:26→22:00)
[2017-06-19] MEDS: MICAFUNGIN 100 MG in IV NORMAL SALINE 100ML 100 ML IV (11:41)
[2017-06-19] MEDS: ALPRAZolam 0.25 MG TABLET PO ×2 (11:42→18:45)
[2017-06-19] MEDS: HYDROcodone/APAP 5/325MG 1 TAB TABLET PO ×2 (11:42→18:45)
[2017-06-19] MEDS: CITALOPRAM 10 MG TABLET. PO (13:29)
[2017-06-19] MEDS: ARIPiprazole 5 MG TABLET PO (13:29)
[2017-06-19] MEDS: TAMSULOSIN 0.4 MG CAP.ER.24H. PO (22:10)
[2017-06-19] MEDS: ATORVASTATIN CALCIUM 40 MG TABLET. PO (22:10)
[2017-06-20] MEDS: MEROPENEM IV Push 500 MG VIAL. IVP ×4 (00:09→17:54)
[2017-06-20 06:16] LABS: ALBUMIN 3.6 g/dL (3.4-5.0); ALBUMIN/GLOBULIN RATIO 1.1 (1.0-1.7); ALK PHOS 162 U/L (46-116); ALT (SGPT) 15 U/L (14-59); ANION GAP 10 (6-14); AST (SGOT) 18 U/L (15-37); BLOOD UREA NITROGEN 20 mg/dL (7-20); BUN/CREATININE RATIO 22 (6-20); CALCIUM 9.3 mg/dL (8.5-10.1); CARBON DIOXIDE 27 mmol/L (21-32); CHLORIDE 91 mmol/L (98-107); CREATININE 0.9 mg/dL (0.6-1.0); GFR 62.6; GLUCOSE 128 mg/dL (70-99); MAGNESIUM 1.8 mg/dL (1.8-2.4); POTASSIUM 4.1 mmol/L (3.5-5.1); SODIUM 128 mmol/L (136-145); TOTAL BILIRUBIN 0.4 mg/dL (0.2-1.0)
[2017-06-20] MEDS: LEVOTHYROXINE 125 MCG TABLET PO (06:31)
[2017-06-20] MEDS: FUROSEMIDE 40 MG/4 ML VIAL. IVP ×3 (06:31→17:54)
[2017-06-20] MEDS: IPRATRPIUM/ALBUTEROL 0.5/2.5MG 3 ML NEBU. NEB ×4 (07:32→21:00)
[2017-06-20] MEDS: BUDESONIDE 0.5 MG/2 ML NEBU. NEB ×2 (07:32→21:00)
[2017-06-20] MEDS: NYSTATIN TOPICAL POWDER 15GM BOTTLE. TP ×2 (09:59→22:40)
[2017-06-20] MEDS: NYSTATIN 100,000 UNIT/GM TOPICAL CREAM 15GM TUBE. TP ×2 (10:00→22:40)
[2017-06-20] MEDS: ALBUMIN HUMAN 25% 100 ML IV (10:00)
[2017-06-20] MEDS: PANTOPRAZOLE 40 MG TABLET.DR. PO (10:06)
[2017-06-20] MEDS: FERROUS SULFATE 325 MG TABLET. PO (10:06)
[2017-06-20] MEDS: ARIPiprazole 5 MG TABLET PO (10:06)
[2017-06-20] MEDS: CITALOPRAM 10 MG TABLET. PO (10:07)
[2017-06-20] MEDS: PIOGLITAZONE 15 MG TABLET. PO (10:07)
[2017-06-20] MEDS: rOPINIRole 0.25 MG TABLET. PO (10:07)
[2017-06-20] MEDS: valACYclovir 500 MG TABLET. PO (10:07)
[2017-06-20] MEDS: HALOPERIDOL 5 MG TABLET. PO (10:07)
[2017-06-20] MEDS: LACTOBACILLUS RHAMNOSUS GG 1 CAPSULE. PO ×2 (10:07→21:00)
[2017-06-20] MEDS: MICAFUNGIN 100 MG in IV NORMAL SALINE 100ML 100 ML IV (11:49)
[2017-06-20 11:54] LABS: BASE EXCESS ABG -1 mmol/L (-3-3); HCO3 ABG 27 mmol/L (21-28); PH ABG 7.22 (7.35-7.45); PO2 ABG 71 mmHg (65-108); SAT O2 ABG 91 % (92-99)
[2017-06-20 11:58] LABS: PCO2 ABG 67 mmHg (35-46)
[2017-06-20 14:23] LABS: BASE EXCESS ABG -4 mmol/L (-3-3); HCO3 ABG 23 mmol/L (21-28); PCO2 ABG 49 mmHg (35-46); PH ABG 7.29 (7.35-7.45); PO2 ABG 71 mmHg (65-108); SAT O2 ABG 92 % (92-99)
[2017-06-20 14:28] LABS: FIO2 ABG 30
[2017-06-20 15:28] LABS: ADD MAN DIFF? NO
[2017-06-20 15:29] LABS: BASO % 1 % (0-3); EOS # 0.1 x10^3/uL (0.0-0.7); EOS % 1 % (0-3); HEMATOCRIT 26.2 % (36.0-47.0); HEMOGLOBIN 8.5 g/dL (12.0-15.5); LYMPH # 0.8 x10^3/uL (1.0-4.8); LYMPH % 12 % (24-48); MEAN CORPUSCULAR HEMOGLOBIN 30 pg (25-35); MEAN CORPUSCULAR HGB CONC 33 g/dL (31-37); MEAN CORPUSCULAR VOLUME 91 fL (79-100); MONO # 1.4 x10^3/uL (0.0-1.1); MONO % 21 % (0-9); NEUT # 4.2 x10^3uL (1.8-7.7); NEUT % 65 % (31-73); PLATELET COUNT 487 x10^3/uL (140-400); RED BLOOD COUNT 2.87 x10^6/uL (3.50-5.40); RED CELL DISTRIBUTION WIDTH 16.2 % (11.5-14.5); WHITE BLOOD COUNT 6.4 x10^3/uL (4.0-11.0)
[2017-06-20 15:57] LABS: AMMONIA 20 mcmol/L (11-34)
[2017-06-20 20:23] LABS: BASE EXCESS ABG -3 mmol/L (-3-3); HCO3 ABG 24 mmol/L (21-28); PCO2 ABG 48 mmHg (35-46); PH ABG 7.31 (7.35-7.45); PO2 ABG 74 mmHg (65-108); SAT O2 ABG 93 % (92-99)
[2017-06-20 20:30] LABS: FIO2 ABG 30
[2017-06-20] MEDS: ATORVASTATIN CALCIUM 40 MG TABLET. PO (21:00)
[2017-06-20] MEDS: TAMSULOSIN 0.4 MG CAP.ER.24H. PO (21:00)
[2017-06-21] MEDS: MEROPENEM IV Push 500 MG VIAL. IVP ×4 (01:14→18:02)
[2017-06-21] MEDS: FUROSEMIDE 40 MG/4 ML VIAL. IVP ×2 (01:14→05:50)
[2017-06-21 04:04] LABS: ANION GAP 10 (6-14); BLOOD UREA NITROGEN 22 mg/dL (7-20); CALCIUM 9.4 mg/dL (8.5-10.1); CARBON DIOXIDE 28 mmol/L (21-32); CHLORIDE 93 mmol/L (98-107); CREATININE 1.1 mg/dL (0.6-1.0); GFR 49.7; GLUCOSE 115 mg/dL (70-99); MAGNESIUM 1.8 mg/dL (1.8-2.4); POTASSIUM 4.6 mmol/L (3.5-5.1); SODIUM 131 mmol/L (136-145)
[2017-06-21] MEDS: LEVOTHYROXINE 125 MCG TABLET PO (05:51)
[2017-06-21] MEDS: BUDESONIDE 0.5 MG/2 ML NEBU. NEB ×2 (07:23→19:35)
[2017-06-21] MEDS: IPRATRPIUM/ALBUTEROL 0.5/2.5MG 3 ML NEBU. NEB ×4 (07:23→19:35)
[2017-06-21] MEDS: PANTOPRAZOLE 40 MG TABLET.DR. PO (07:30)
[2017-06-21] MEDS: FERROUS SULFATE 325 MG TABLET. PO (08:00)
[2017-06-21 08:10] LABS: BASE EXCESS ABG 0 mmol/L (-3-3); HCO3 ABG 28 mmol/L (21-28); PH ABG 7.27 (7.35-7.45); PO2 ABG 71 mmHg (65-108); SAT O2 ABG 91 % (92-99)
[2017-06-21 08:12] LABS: BODY TEMP ABG 90.6 DEG; CORRECTED PCO2 ABG 51 mmHg; CORRECTED PH ABG 7.33; CORRECTED PO2 ABG 53 mmHg
[2017-06-21 08:26] LABS: FIO2 ABG 32%; PCO2 ABG 61 mmHg (35-46)
[2017-06-21] MEDS: valACYclovir 500 MG TABLET. PO (09:00)
[2017-06-21] MEDS: HALOPERIDOL 5 MG TABLET. PO (09:00)
[2017-06-21] MEDS: NYSTATIN 100,000 UNIT/GM TOPICAL CREAM 15GM TUBE. TP ×2 (09:00→21:00)
[2017-06-21] MEDS: NYSTATIN TOPICAL POWDER 15GM BOTTLE. TP ×2 (09:00→21:00)
[2017-06-21] MEDS: PIOGLITAZONE 15 MG TABLET. PO (09:00)
[2017-06-21] MEDS: LACTOBACILLUS RHAMNOSUS GG 1 CAPSULE. PO ×2 (09:00→21:00)
[2017-06-21 09:02] LABS: BASO % 1 % (0-3); EOS # 0.1 x10^3/uL (0.0-0.7); EOS % 1 % (0-3); HEMATOCRIT 29.4 % (36.0-47.0); HEMOGLOBIN 9.3 g/dL (12.0-15.5); LYMPH # 0.6 x10^3/uL (1.0-4.8); LYMPH % 12 % (24-48); MEAN CORPUSCULAR HEMOGLOBIN 29 pg (25-35); MEAN CORPUSCULAR HGB CONC 32 g/dL (31-37); MEAN CORPUSCULAR VOLUME 92 fL (79-100); MONO # 0.8 x10^3/uL (0.0-1.1); MONO % 15 % (0-9); NEUT # 3.8 x10^3uL (1.8-7.7); NEUT % 71 % (31-73); PLATELET COUNT 550 x10^3/uL (140-400); RED BLOOD COUNT 3.21 x10^6/uL (3.50-5.40); RED CELL DISTRIBUTION WIDTH 16.7 % (11.5-14.5); WHITE BLOOD COUNT 5.4 x10^3/uL (4.0-11.0)
[2017-06-21 10:01] LABS: ADD MAN DIFF? YES
[2017-06-21 10:03] LABS: THYROID STIM HORMONE (TSH) 4.481 uIU/mL (0.358-3.74)
[2017-06-21 10:42] LABS: % EOS 1 % (0-5); % LYMPHS 14 % (24-48); % MONOS 16 % (0-10); % SEGS 69 % (35-66); NUCLEATED RBC 9; PLT ESTIMATE INCREASED (ADEQUATE)
[2017-06-21 11:06] LABS: ALBUMIN 3.1 g/dL (3.4-5.0); ALBUMIN/GLOBULIN RATIO 0.9 (1.0-1.7); ALK PHOS 152 U/L (46-116); ALT (SGPT) 16 U/L (14-59); ANION GAP 10 (6-14); AST (SGOT) 22 U/L (15-37); BLOOD UREA NITROGEN 22 mg/dL (7-20); BUN/CREATININE RATIO 20 (6-20); CALCIUM 9.2 mg/dL (8.5-10.1); CARBON DIOXIDE 26 mmol/L (21-32); CHLORIDE 92 mmol/L (98-107); CREATININE 1.1 mg/dL (0.6-1.0); GFR 49.7; GLUCOSE 102 mg/dL (70-99); POTASSIUM 4.4 mmol/L (3.5-5.1); SODIUM 128 mmol/L (136-145); TOTAL BILIRUBIN 0.4 mg/dL (0.2-1.0); TOTAL PROTEIN 6.5 g/dL (6.4-8.2)
[2017-06-21 11:14] LABS: LACTIC ACID 1.4 mmol/L (0.4-2.0)
[2017-06-21] MEDS: MICAFUNGIN 100 MG in IV NORMAL SALINE 100ML 100 ML IV (12:20)
[2017-06-21] MEDS: ASPIRIN ENTERIC COATED 81 MG TABLET.DR. PO (13:00)
[2017-06-21] MEDS: METOPROLOL TART IMMED RELEASE 25 MG TABLET. PO ×2 (13:00→21:00)
[2017-06-21 16:15] LABS: CREATINE KINASE 23 U/L (26-192)
[2017-06-21 16:44] LABS: VITAMIN-B12 823 pg/mL (247-911)
[2017-06-21] MEDS: DAPTOMYCIN IV (18:06)
[2017-06-21] MEDS: NORMAL SALINE IV (18:06)
[2017-06-21 20:00] LABS: BASE EXCESS ABG 0 mmol/L (-3-3); BODY TEMP ABG 94.1 DEG; CORRECTED PCO2 ABG 39 mmHg; CORRECTED PH ABG 7.42; CORRECTED PO2 ABG 67 mmHg; HCO3 ABG 25 mmol/L (21-28); PCO2 ABG 44 mmHg (35-46); PH ABG 7.39 (7.35-7.45); PO2 ABG 79 mmHg (65-108); SAT O2 ABG 94 % (92-99)
[2017-06-21 20:03] LABS: FIO2 ABG 30
[2017-06-21] MEDS: TAMSULOSIN 0.4 MG CAP.ER.24H. PO (21:00)
[2017-06-21] MEDS: ATORVASTATIN CALCIUM 40 MG TABLET. PO (21:00)
[2017-06-22] MEDS: MEROPENEM IV Push 500 MG VIAL. IVP ×4 (01:21→18:07)
[2017-06-22] MEDS: IV NORMAL SALINE 500ML BAG 500 ML IV ×2 (04:32→19:28)
[2017-06-22] MEDS: IV NORMAL SALINE 1000ML BAG 1,000 ML IV (05:59)
[2017-06-22] MEDS: LEVOTHYROXINE 125 MCG TABLET PO (07:00)
[2017-06-22] MEDS: FUROSEMIDE 40 MG/4 ML VIAL. IVP ×2 (07:12→12:34)
[2017-06-22] MEDS: IPRATRPIUM/ALBUTEROL 0.5/2.5MG 3 ML NEBU. NEB ×4 (07:27→19:30)
[2017-06-22] MEDS: BUDESONIDE 0.5 MG/2 ML NEBU. NEB ×2 (07:28→19:30)
[2017-06-22] MEDS: PANTOPRAZOLE 40 MG TABLET.DR. PO (07:30)
[2017-06-22 07:45] LABS: BASE EXCESS ABG 0 mmol/L (-3-3); HCO3 ABG 26 mmol/L (21-28); PCO2 ABG 52 mmHg (35-46); PH ABG 7.32 (7.35-7.45); PO2 ABG 82 mmHg (65-108); SAT O2 ABG 94 % (92-99)
[2017-06-22] MEDS: FERROUS SULFATE 325 MG TABLET. PO (08:00)
[2017-06-22] MEDS: ASPIRIN ENTERIC COATED 81 MG TABLET.DR. PO (08:00)
[2017-06-22 08:29] LABS: POC GLUCOSE 92 mg/dL (70-99)
[2017-06-22 08:58] LABS: FIO2 ABG 40
[2017-06-22] MEDS: LACTOBACILLUS RHAMNOSUS GG 1 CAPSULE. PO ×2 (09:00→20:38)
[2017-06-22] MEDS: PIOGLITAZONE 15 MG TABLET. PO (09:00)
[2017-06-22] MEDS: HALOPERIDOL 5 MG TABLET. PO (09:00)
[2017-06-22] MEDS: valACYclovir 500 MG TABLET. PO (09:00)
[2017-06-22] MEDS: METOPROLOL TART IMMED RELEASE 25 MG TABLET. PO ×2 (09:00→20:38)
[2017-06-22] MEDS: NYSTATIN 100,000 UNIT/GM TOPICAL CREAM 15GM TUBE. TP ×2 (09:44→20:38)
[2017-06-22] MEDS: VITS A & D/LANOLIN TOPICAL OINTMENT 56GM TUBE. TP ×2 (09:47→16:06)
[2017-06-22 10:32] LABS: ANION GAP 14 (6-14); BLOOD UREA NITROGEN 30 mg/dL (7-20); CALCIUM 9.4 mg/dL (8.5-10.1); CARBON DIOXIDE 24 mmol/L (21-32); CHLORIDE 95 mmol/L (98-107); CREATININE 1.3 mg/dL (0.6-1.0); GLUCOSE 86 mg/dL (70-99); SODIUM 133 mmol/L (136-145)
[2017-06-22 10:36] LABS: POTASSIUM 5.5 mmol/L (3.5-5.1)
[2017-06-22] MEDS: NYSTATIN TOPICAL POWDER 15GM BOTTLE. TP ×2 (10:44→20:38)
[2017-06-22] MEDS: MICAFUNGIN 100 MG in IV NORMAL SALINE 100ML 100 ML IV (10:51)
[2017-06-22] MEDS ORDERED: IV NORMAL SALINE 500ML BAG 500 ML IV (13:45)
[2017-06-22] MEDS: SODIUM POLYSTYRENE SULFONATE 15 GM/60 ML ORAL.SUSP. PO (16:07)
[2017-06-22] MEDS: NORMAL SALINE IV (16:09)
[2017-06-22] MEDS: DAPTOMYCIN IV (16:09)
[2017-06-22] MEDS: TAMSULOSIN 0.4 MG CAP.ER.24H. PO (20:37)
[2017-06-22] MEDS: ATORVASTATIN CALCIUM 40 MG TABLET. PO (20:37)
[2017-06-22] MEDS ORDERED: METOPROLOL TART IMMED RELEASE 25 MG TABLET. PO (21:00)
[2017-06-23] MEDS: MEROPENEM IV Push 500 MG VIAL. IVP ×4 (00:03→18:44)
[2017-06-23] MEDS: IV NORMAL SALINE 500ML BAG 500 ML IV (03:30)
[2017-06-23] MEDS: ALBUTEROL SULFATE 2.5 MG/3 ML NEBU. NEB (04:49)
[2017-06-23 07:04] LABS: ANION GAP 15 (6-14); BLOOD UREA NITROGEN 36 mg/dL (7-20); CALCIUM 9.4 mg/dL (8.5-10.1); CARBON DIOXIDE 21 mmol/L (21-32); CHLORIDE 95 mmol/L (98-107); CREATININE 1.4 mg/dL (0.6-1.0); GFR 37.6; GLUCOSE 100 mg/dL (70-99); SODIUM 131 mmol/L (136-145)
[2017-06-23 07:08] LABS: POTASSIUM 4.5 mmol/L (3.5-5.1)
[2017-06-23] MEDS: BUDESONIDE 0.5 MG/2 ML NEBU. NEB ×2 (08:32→19:39)
[2017-06-23] MEDS: IPRATRPIUM/ALBUTEROL 0.5/2.5MG 3 ML NEBU. NEB ×4 (08:32→19:39)
[2017-06-23 08:43] LABS: BASO # 0.1 x10^3/uL (0.0-0.2); BASO % 0 % (0-3); EOS # 0.1 x10^3/uL (0.0-0.7); EOS % 1 % (0-3); HEMATOCRIT 31.1 % (36.0-47.0); HEMOGLOBIN 9.9 g/dL (12.0-15.5); LYMPH # 1.7 x10^3/uL (1.0-4.8); LYMPH % 12 % (24-48); MEAN CORPUSCULAR HEMOGLOBIN 29 pg (25-35); MEAN CORPUSCULAR HGB CONC 32 g/dL (31-37); MEAN CORPUSCULAR VOLUME 90 fL (79-100); MONO # 2.4 x10^3/uL (0.0-1.1); MONO % 17 % (0-9); NEUT # 9.7 x10^3uL (1.8-7.7); NEUT % 70 % (31-73); PLATELET COUNT 435 x10^3/uL (140-400); RED BLOOD COUNT 3.46 x10^6/uL (3.50-5.40); RED CELL DISTRIBUTION WIDTH 16.1 % (11.5-14.5); WHITE BLOOD COUNT 13.9 x10^3/uL (4.0-11.0)
[2017-06-23 08:50] LABS: ADD MAN DIFF? YES
[2017-06-23 08:54] LABS: BASE EXCESS ABG 1 mmol/L (-3-3); HCO3 ABG 27 mmol/L (21-28); PCO2 ABG 53 mmHg (35-46); PH ABG 7.33 (7.35-7.45); PO2 ABG 76 mmHg (65-108); SAT O2 ABG 92 % (92-99)
[2017-06-23 08:58] LABS: FIO2 ABG 40
[2017-06-23 09:07] LABS: NT-PRO BNP 1644 pg/mL (0-124)
[2017-06-23] MEDS: ASPIRIN ENTERIC COATED 81 MG TABLET.DR. PO (10:20)
[2017-06-23] MEDS: FERROUS SULFATE 325 MG TABLET. PO (10:20)
[2017-06-23] MEDS: LEVOTHYROXINE 125 MCG TABLET PO (10:20)
[2017-06-23] MEDS: PIOGLITAZONE 15 MG TABLET. PO (10:20)
[2017-06-23] MEDS: LACTOBACILLUS RHAMNOSUS GG 1 CAPSULE. PO ×2 (10:20→20:40)
[2017-06-23] MEDS: PANTOPRAZOLE 40 MG TABLET.DR. PO (10:21)
[2017-06-23] MEDS: valACYclovir 500 MG TABLET. PO (10:21)
[2017-06-23] MEDS: VITS A & D/LANOLIN TOPICAL OINTMENT 56GM TUBE. TP (10:21)
[2017-06-23] MEDS: METOPROLOL TART IMMED RELEASE 25 MG TABLET. PO ×2 (10:21→20:42)
[2017-06-23] MEDS: NYSTATIN TOPICAL POWDER 15GM BOTTLE. TP ×2 (10:21→20:51)
[2017-06-23] MEDS: NYSTATIN 100,000 UNIT/GM TOPICAL CREAM 15GM TUBE. TP ×2 (10:22→20:51)
[2017-06-23] MEDS: HALOPERIDOL 5 MG TABLET. PO (10:24)
[2017-06-23 12:01] LABS: % BANDS 5 % (0-9); % LYMPHS 12 % (24-48); % MONOS 15 % (0-10); % SEGS 68 % (35-66); NUCLEATED RBC 13
[2017-06-23 12:02] LABS: PLT ESTIMATE INCREASED (ADEQUATE); POLYCHROMASIA PRESENT
[2017-06-23 12:03] LABS: ANISOCYTOSIS MOD; TARGET CELLS FEW; TEAR DROP CELLS OCC
[2017-06-23 12:04] LABS: BURR CELLS OCC; SCHISTOCYTES OCC
[2017-06-23 15:42] LABS: BILIRUBIN,URINE SMALL (NEG); CLARITY,URINE CLOUDY; COLOR,URINE YELLOW; GLUCOSE,URINE NEGATIVE (NEG); NITRITE,URINE NEGATIVE (NEG); PROTEIN,URINE 100 mg/dL (NEG-TRACE)
[2017-06-23 16:06] LABS: AMORPHOUS SEDIMENT,UR PRESENT /HPF; BACTERIA,URINE FEW /HPF (0-FEW); HYALINE CASTS, URINE MANY /HPF; RBC,URINE 0 /HPF (0-2); SQUAMOUS EPITHELIAL CELL,UR MOD /LPF
[2017-06-23] MEDS: MICAFUNGIN 100 MG in IV NORMAL SALINE 100ML 100 ML IV (18:41)
[2017-06-23] MEDS: NORMAL SALINE IV (18:42)
[2017-06-23] MEDS: DAPTOMYCIN IV (18:42)
[2017-06-23] MEDS: IRON SUCROSE COMPLEX 200 MG in TOTAL VOLUME SYRINGE 0 ML IV (20:38)
[2017-06-23] MEDS: ATORVASTATIN CALCIUM 40 MG TABLET. PO (20:40)
[2017-06-23] MEDS: TAMSULOSIN 0.4 MG CAP.ER.24H. PO (20:40)
[2017-06-24] MEDS: MEROPENEM IV Push 500 MG VIAL. IVP ×4 (00:38→16:50)
[2017-06-24 06:07] LABS: ANION GAP 12 (6-14); BLOOD UREA NITROGEN 43 mg/dL (7-20); CALCIUM 9.1 mg/dL (8.5-10.1); CARBON DIOXIDE 26 mmol/L (21-32); CHLORIDE 98 mmol/L (98-107); CREATININE 1.5 mg/dL (0.6-1.0); GFR 34.7; GLUCOSE 102 mg/dL (70-99); POTASSIUM 3.6 mmol/L (3.5-5.1); SODIUM 136 mmol/L (136-145)
[2017-06-24 06:12] LABS: CREATINE KINASE 23 U/L (26-192)
[2017-06-24] MEDS: PANTOPRAZOLE 40 MG TABLET.DR. PO (08:00)
[2017-06-24] MEDS: valACYclovir 500 MG TABLET. PO (08:00)
[2017-06-24] MEDS: LEVOTHYROXINE 125 MCG TABLET PO (08:00)
[2017-06-24] MEDS: ASPIRIN ENTERIC COATED 81 MG TABLET.DR. PO (08:00)
[2017-06-24] MEDS: LACTOBACILLUS RHAMNOSUS GG 1 CAPSULE. PO ×2 (08:00→20:51)
[2017-06-24] MEDS: FERROUS SULFATE 325 MG TABLET. PO (08:00)
[2017-06-24] MEDS: HALOPERIDOL 5 MG TABLET. PO (08:01)
[2017-06-24] MEDS: PIOGLITAZONE 15 MG TABLET. PO (08:01)
[2017-06-24] MEDS: METOPROLOL TART IMMED RELEASE 25 MG TABLET. PO ×2 (08:01→20:51)
[2017-06-24] MEDS: NYSTATIN TOPICAL POWDER 15GM BOTTLE. TP ×2 (08:02→20:52)
[2017-06-24] MEDS: NYSTATIN 100,000 UNIT/GM TOPICAL CREAM 15GM TUBE. TP ×2 (08:02→20:52)
[2017-06-24] MEDS: IPRATRPIUM/ALBUTEROL 0.5/2.5MG 3 ML NEBU. NEB ×4 (08:23→19:14)
[2017-06-24] MEDS: BUDESONIDE 0.5 MG/2 ML NEBU. NEB ×2 (08:23→19:14)
[2017-06-24 08:43] LABS: BASE EXCESS ABG -3 mmol/L (-3-3); CORRECTED PCO2 ABG 42 mmHg; CORRECTED PH ABG 7.35; CORRECTED PO2 ABG 59 mmHg; HCO3 ABG 24 mmol/L (21-28); PCO2 ABG 49 mmHg (35-46); PO2 ABG 73 mmHg (65-108); SAT O2 ABG 91 % (92-99)
[2017-06-24 08:49] LABS: FIO2 ABG 40
[2017-06-24] MEDS ORDERED: FUROSEMIDE INJ 100 MG in IV NORMAL SALINE 100ML 100 ML IV (14:45)
[2017-06-24] MEDS: MICAFUNGIN 100 MG in IV NORMAL SALINE 100ML 100 ML IV (15:02)
[2017-06-24] MEDS: DAPTOMYCIN IV (16:51)
[2017-06-24] MEDS: NORMAL SALINE IV (16:51)
[2017-06-24] MEDS: TAMSULOSIN 0.4 MG CAP.ER.24H. PO (20:51)
[2017-06-24] MEDS: ATORVASTATIN CALCIUM 40 MG TABLET. PO (20:51)
[2017-06-24 23:08] LABS: TOTAL PROTEIN CREATININE RATIO 1380 mg/g creat (0-200); UR CREATININE RD 96.7 mg/dL (Not Estab.); UR PROTEIN RD 133.4 mg/dL (Not Estab.)
[2017-06-25] MEDS: MEROPENEM IV Push 500 MG VIAL. IVP ×5 (00:09→23:44)
[2017-06-25] MEDS: LEVOTHYROXINE 125 MCG TABLET PO (05:55)
[2017-06-25] MEDS: IPRATRPIUM/ALBUTEROL 0.5/2.5MG 3 ML NEBU. NEB ×4 (08:07→20:12)
[2017-06-25] MEDS: BUDESONIDE 0.5 MG/2 ML NEBU. NEB ×2 (08:07→20:12)
[2017-06-25] MEDS: ALBUTEROL SULFATE 2.5 MG/3 ML NEBU. NEB (08:07)
[2017-06-25 08:23] LABS: HEMATOCRIT 30.9 % (36.0-47.0); HEMOGLOBIN 9.3 g/dL (12.0-15.5); MEAN CORPUSCULAR HEMOGLOBIN 28 pg (25-35); MEAN CORPUSCULAR HGB CONC 30 g/dL (31-37); MEAN CORPUSCULAR VOLUME 94 fL (79-100); PLATELET COUNT 297 x10^3/uL (140-400); RED BLOOD COUNT 3.29 x10^6/uL (3.50-5.40); RED CELL DISTRIBUTION WIDTH 16.8 % (11.5-14.5); WHITE BLOOD COUNT 20.3 x10^3/uL (4.0-11.0)
[2017-06-25 08:34] LABS: ANION GAP 12 (6-14); BLOOD UREA NITROGEN 52 mg/dL (7-20); CALCIUM 9.5 mg/dL (8.5-10.1); CARBON DIOXIDE 24 mmol/L (21-32); CHLORIDE 100 mmol/L (98-107); CREATINE KINASE 25 U/L (26-192); CREATININE 1.9 mg/dL (0.6-1.0); GFR 26.4; GLUCOSE 123 mg/dL (70-99); POTASSIUM 3.6 mmol/L (3.5-5.1); SODIUM 136 mmol/L (136-145)
[2017-06-25] MEDS ORDERED: IRON SUCROSE COMPLEX 200 MG in IV NORMAL SALINE 100ML 100 ML IV (09:00)
[2017-06-25 09:25] LABS: BASE EXCESS ABG 1 mmol/L (-3-3); HCO3 ABG 26 mmol/L (21-28); PCO2 ABG 46 mmHg (35-46); PH ABG 7.37 (7.35-7.45); PO2 ABG 86 mmHg (65-108); SAT O2 ABG 96 % (92-99)
[2017-06-25 10:02] LABS: FIO2 ABG 50
[2017-06-25] MEDS: valACYclovir 500 MG TABLET. PO (10:12)
[2017-06-25] MEDS: IRON SUCROSE COMPLEX 200 MG in TOTAL VOLUME SYRINGE 0 ML IV (10:12)
[2017-06-25] MEDS: LACTOBACILLUS RHAMNOSUS GG 1 CAPSULE. PO ×2 (10:12→21:38)
[2017-06-25] MEDS: HALOPERIDOL 5 MG TABLET. PO (10:13)
[2017-06-25] MEDS: FERROUS SULFATE 325 MG TABLET. PO (10:13)
[2017-06-25] MEDS: PANTOPRAZOLE 40 MG TABLET.DR. PO (10:13)
[2017-06-25] MEDS: METOPROLOL TART IMMED RELEASE 25 MG TABLET. PO ×2 (10:13→21:00)
[2017-06-25] MEDS: PIOGLITAZONE 15 MG TABLET. PO (10:13)
[2017-06-25] MEDS: ASPIRIN ENTERIC COATED 81 MG TABLET.DR. PO (10:14)
[2017-06-25] MEDS: NYSTATIN TOPICAL POWDER 15GM BOTTLE. TP ×2 (10:23→21:40)
[2017-06-25] MEDS: NYSTATIN 100,000 UNIT/GM TOPICAL CREAM 15GM TUBE. TP ×2 (10:24→21:40)
[2017-06-25] MEDS: MICAFUNGIN 100 MG in IV NORMAL SALINE 100ML 100 ML IV (16:25)
[2017-06-25] MEDS: DAPTOMYCIN IV (17:55)
[2017-06-25] MEDS: NORMAL SALINE IV (17:55)
[2017-06-25] MEDS: ATORVASTATIN CALCIUM 40 MG TABLET. PO (21:38)
[2017-06-25] MEDS: TAMSULOSIN 0.4 MG CAP.ER.24H. PO (21:39)
[2017-06-26] MEDS: LEVOTHYROXINE 125 MCG TABLET PO (05:35)
[2017-06-26] MEDS: MEROPENEM IV Push 500 MG VIAL. IVP ×3 (05:35→18:55)
[2017-06-26] MEDS: IPRATRPIUM/ALBUTEROL 0.5/2.5MG 3 ML NEBU. NEB ×4 (07:18→19:18)
[2017-06-26] MEDS: BUDESONIDE 0.5 MG/2 ML NEBU. NEB ×2 (07:26→19:18)
[2017-06-26 07:30] LABS: ANION GAP 11 (6-14); BLOOD UREA NITROGEN 59 mg/dL (7-20); CALCIUM 9.2 mg/dL (8.5-10.1); CARBON DIOXIDE 31 mmol/L (21-32); CHLORIDE 99 mmol/L (98-107); CREATININE 2.4 mg/dL (0.6-1.0); GFR 20.2; GLUCOSE 126 mg/dL (70-99); POTASSIUM 3.5 mmol/L (3.5-5.1); SODIUM 141 mmol/L (136-145)
[2017-06-26 07:36] LABS: CREATINE KINASE 29 U/L (26-192)
[2017-06-26] MEDS: ASPIRIN ENTERIC COATED 81 MG TABLET.DR. PO (08:00)
[2017-06-26] MEDS: LACTOBACILLUS RHAMNOSUS GG 1 CAPSULE. PO ×2 (09:00→20:43)
[2017-06-26] MEDS: HALOPERIDOL 5 MG TABLET. PO (10:44)
[2017-06-26] MEDS: valACYclovir 500 MG TABLET. PO (10:44)
[2017-06-26] MEDS: METOPROLOL TART IMMED RELEASE 25 MG TABLET. PO ×2 (10:45→21:00)
[2017-06-26] MEDS: NYSTATIN TOPICAL POWDER 15GM BOTTLE. TP ×2 (10:45→20:43)
[2017-06-26] MEDS: FERROUS SULFATE 325 MG TABLET. PO (10:45)
[2017-06-26] MEDS: PIOGLITAZONE 15 MG TABLET. PO (10:45)
[2017-06-26] MEDS: PANTOPRAZOLE 40 MG TABLET.DR. PO (10:45)
[2017-06-26] MEDS: NYSTATIN 100,000 UNIT/GM TOPICAL CREAM 15GM TUBE. TP ×2 (10:46→20:43)
[2017-06-26] MEDS: MICAFUNGIN 100 MG in IV NORMAL SALINE 100ML 100 ML IV (10:53)
[2017-06-26] MEDS: FUROSEMIDE 20 MG/2 ML VIAL. IVP ×3 (10:53→18:00)
[2017-06-26] MEDS ORDERED: NOREPINEPHRIN PREMIX 250 ML IV (14:55)
[2017-06-26 15:36] LABS: BASE EXCESS ABG -3 mmol/L (-3-3); HCO3 ABG 26 mmol/L (21-28); PH ABG 7.22 (7.35-7.45); PO2 ABG 92 mmHg (65-108); SAT O2 ABG 95 % (92-99)
[2017-06-26 15:38] LABS: FIO2 ABG 50; PCO2 ABG 64 mmHg (35-46)
[2017-06-26] MEDS ORDERED: ETOMIDATE 20 MG/10 ML VIAL. IV (16:02)
[2017-06-26] MEDS ORDERED: SUCCINYLCHOLINE 200 MG/10 ML VIAL. (16:02)
[2017-06-26] MEDS: DIGOXIN IV 500 MCG/2 ML AMPUL. IV (18:57)
[2017-06-26] MEDS: NORMAL SALINE IV (18:58)
[2017-06-26] MEDS: DAPTOMYCIN IV (18:58)
[2017-06-26] MEDS: IV NORMAL SALINE 1000ML BAG 1,000 ML IV ×2 (19:15→21:50)
[2017-06-26] MEDS: NOREPINEPHRIN PREMIX 250 ML IV (20:27)
[2017-06-26] MEDS: ATORVASTATIN CALCIUM 40 MG TABLET. PO (20:43)
[2017-06-26] MEDS: TAMSULOSIN 0.4 MG CAP.ER.24H. PO (20:43)
[2017-06-27 00:08] LABS: LACTIC ACID 1.6 mmol/L (0.4-2.0)
[2017-06-27] MEDS: MEROPENEM IV Push 500 MG VIAL. IVP ×5 (00:31→23:44)
[2017-06-27] MEDS: ALBUMIN HUMAN 25% 50 ML IV ×5 (00:32→23:46)
[2017-06-27] MEDS: IV NORMAL SALINE 1000ML BAG 1,000 ML IV ×4 (00:32→20:11)
[2017-06-27] MEDS: NOREPINEPHRIN PREMIX 250 ML IV ×3 (00:33→16:21)
[2017-06-27 05:15] LABS: ANION GAP 15 (6-14); BLOOD UREA NITROGEN 67 mg/dL (7-20); CALCIUM 8.8 mg/dL (8.5-10.1); CARBON DIOXIDE 24 mmol/L (21-32); CHLORIDE 101 mmol/L (98-107); CREATINE KINASE 28 U/L (26-192); CREATININE 2.4 mg/dL (0.6-1.0); GFR 20.2; GLUCOSE 151 mg/dL (70-99); SODIUM 140 mmol/L (136-145)
[2017-06-27] MEDS: LEVOTHYROXINE 125 MCG TABLET PO (05:39)
[2017-06-27] MEDS: BUDESONIDE 0.5 MG/2 ML NEBU. NEB ×2 (07:08→19:23)
[2017-06-27] MEDS: IPRATRPIUM/ALBUTEROL 0.5/2.5MG 3 ML NEBU. NEB ×4 (07:08→19:23)
[2017-06-27] MEDS: ASPIRIN ENTERIC COATED 81 MG TABLET.DR. PO (07:23)
[2017-06-27] MEDS: PANTOPRAZOLE 40 MG TABLET.DR. PO (07:23)
[2017-06-27 07:57] LABS: ADD MAN DIFF? NO
[2017-06-27 08:23] LABS: BASE EXCESS ABG -2 mmol/L (-3-3); HCO3 ABG 21 mmol/L (21-28); PCO2 ABG 29 mmHg (35-46); PH ABG 7.47 (7.35-7.45); PO2 ABG 90 mmHg (65-108); SAT O2 ABG 97 % (92-99)
[2017-06-27 08:24] LABS: FIO2 ABG 40
[2017-06-27 08:29] LABS: BASE EXCESS ABG -4 mmol/L (-3-3); FIO2 ABG 60; HCO3 ABG 24 mmol/L (21-28); PCO2 ABG 54 mmHg (35-46); PH ABG 7.27 (7.35-7.45); PO2 ABG 96 mmHg (65-108); SAT O2 ABG 96 % (92-99)
[2017-06-27 08:39] LABS: BASO # 0.1 x10^3/uL (0.0-0.2); BASO % 0 % (0-3); EOS # 0.1 x10^3/uL (0.0-0.7); EOS % 0 % (0-3); HEMATOCRIT 31.9 % (36.0-47.0); HEMOGLOBIN 9.8 g/dL (12.0-15.5); LYMPH # 2.1 x10^3/uL (1.0-4.8); LYMPH % 7 % (24-48); MEAN CORPUSCULAR HEMOGLOBIN 28 pg (25-35); MEAN CORPUSCULAR HGB CONC 31 g/dL (31-37); MEAN CORPUSCULAR VOLUME 91 fL (79-100); MONO # 3.1 x10^3/uL (0.0-1.1); MONO % 11 % (0-9); NEUT # 23.4 x10^3uL (1.8-7.7); NEUT % 81 % (31-73); PLATELET COUNT 313 x10^3/uL (140-400); RED CELL DISTRIBUTION WIDTH 16.4 % (11.5-14.5); WHITE BLOOD COUNT 28.8 x10^3/uL (4.0-11.0)
[2017-06-27] MEDS: METOPROLOL TART IMMED RELEASE 25 MG TABLET. PO ×2 (09:00→19:08)
[2017-06-27] MEDS: IRON SUCROSE COMPLEX 200 MG in TOTAL VOLUME SYRINGE 0 ML IV (09:50)
[2017-06-27] MEDS: HALOPERIDOL 5 MG TABLET. PO (09:51)
[2017-06-27] MEDS: PIOGLITAZONE 15 MG TABLET. PO (09:51)
[2017-06-27] MEDS: valACYclovir 500 MG TABLET. PO (09:51)
[2017-06-27] MEDS: FERROUS SULFATE 325 MG TABLET. PO (09:51)
[2017-06-27] MEDS: NYSTATIN 100,000 UNIT/GM TOPICAL CREAM 15GM TUBE. TP ×2 (09:52→20:11)
[2017-06-27] MEDS: VITS A & D/LANOLIN TOPICAL OINTMENT 56GM TUBE. TP (09:52)
[2017-06-27] MEDS: NYSTATIN TOPICAL POWDER 15GM BOTTLE. TP ×2 (09:52→20:11)
[2017-06-27] MEDS: LACTOBACILLUS RHAMNOSUS GG 1 CAPSULE. PO ×2 (09:52→20:10)
[2017-06-27] MEDS: ALBUMIN HUMAN 5% 500 ML IV (11:16)
[2017-06-27] MEDS: MICAFUNGIN 100 MG in IV NORMAL SALINE 100ML 100 ML IV (11:17)
[2017-06-27] MEDS: LINEZOLID 600 MG TABLET PO ×2 (11:17→20:10)
[2017-06-27] MEDS: MIDAZOLAM 100MG/100ML PREMIX 100 ML IV (11:57)
[2017-06-27 19:37] LABS: BILIRUBIN,URINE SMALL (NEG); CLARITY,URINE CLOUDY; GLUCOSE,URINE NEGATIVE (NEG); NITRITE,URINE NEGATIVE (NEG); PROTEIN,URINE 100 mg/dL (NEG-TRACE)
[2017-06-27 20:08] LABS: AMORPHOUS SEDIMENT,UR PRESENT /HPF; BACTERIA,URINE FEW /HPF (0-FEW); COLOR,URINE YELLOW; HYALINE CASTS, URINE FEW /HPF; RBC,URINE 0 /HPF (0-2); SQUAMOUS EPITHELIAL CELL,UR MOD /LPF
[2017-06-27] MEDS: TAMSULOSIN 0.4 MG CAP.ER.24H. PO (20:10)
[2017-06-27] MEDS: ATORVASTATIN CALCIUM 40 MG TABLET. PO (20:10)
[2017-06-28] MEDS: NOREPINEPHRIN PREMIX 250 ML IV ×2 (03:40→19:34)
[2017-06-28] MEDS: IV NORMAL SALINE 1000ML BAG 1,000 ML IV ×2 (03:41→11:07)
[2017-06-28 05:13] LABS: ANION GAP 12 (6-14); BLOOD UREA NITROGEN 74 mg/dL (7-20); CALCIUM 8.8 mg/dL (8.5-10.1); CARBON DIOXIDE 26 mmol/L (21-32); CHLORIDE 103 mmol/L (98-107); CREATINE KINASE 45 U/L (26-192); CREATININE 2.5 mg/dL (0.6-1.0); GFR 19.3; GLUCOSE 145 mg/dL (70-99); POTASSIUM 3.6 mmol/L (3.5-5.1); SODIUM 141 mmol/L (136-145)
[2017-06-28] MEDS: MEROPENEM IV Push 500 MG VIAL. IVP ×3 (05:19→20:29)
[2017-06-28] MEDS: ALBUMIN HUMAN 25% 50 ML IV ×3 (05:19→17:59)
[2017-06-28] MEDS: PANTOPRAZOLE 40 MG TABLET.DR. PO (07:30)
[2017-06-28] MEDS: BUDESONIDE 0.5 MG/2 ML NEBU. NEB ×2 (07:42→19:48)
[2017-06-28] MEDS: IPRATRPIUM/ALBUTEROL 0.5/2.5MG 3 ML NEBU. NEB ×4 (07:42→19:48)
[2017-06-28 08:58] LABS: BASE EXCESS ABG -3 mmol/L (-3-3); HCO3 ABG 21 mmol/L (21-28); PCO2 ABG 33 mmHg (35-46); PH ABG 7.42 (7.35-7.45); PO2 ABG 93 mmHg (65-108); SAT O2 ABG 96 % (92-99)
[2017-06-28 08:59] LABS: FIO2 ABG 40
[2017-06-28] MEDS: METOPROLOL TART IMMED RELEASE 25 MG TABLET. PO ×2 (09:00→19:04)
[2017-06-28] MEDS: LACTOBACILLUS RHAMNOSUS GG 1 CAPSULE. PO ×2 (09:42→20:29)
[2017-06-28] MEDS: FERROUS SULFATE 325 MG TABLET. PO (09:46)
[2017-06-28] MEDS: LINEZOLID 600 MG TABLET PO ×2 (09:46→20:29)
[2017-06-28] MEDS: valACYclovir 500 MG TABLET. PO (09:47)
[2017-06-28] MEDS: ASPIRIN CHEWABLE 81 MG TABLET. PO (09:47)
[2017-06-28] MEDS: PIOGLITAZONE 15 MG TABLET. PO (09:47)
[2017-06-28] MEDS: HALOPERIDOL 5 MG TABLET. PO (09:48)
[2017-06-28] MEDS: LEVOTHYROXINE 125 MCG TABLET PO (09:48)
[2017-06-28] MEDS: PANTOPRAZOLE IV PUSH 40 MG VIAL. IVP (09:49)
[2017-06-28 10:18] LABS: ADD MAN DIFF? NO
[2017-06-28 10:25] LABS: BASO # 0.1 x10^3/uL (0.0-0.2); BASO % 0 % (0-3); EOS # 0.2 x10^3/uL (0.0-0.7); EOS % 1 % (0-3); HEMATOCRIT 27.5 % (36.0-47.0); HEMOGLOBIN 8.7 g/dL (12.0-15.5); LYMPH # 2.5 x10^3/uL (1.0-4.8); LYMPH % 10 % (24-48); MEAN CORPUSCULAR HEMOGLOBIN 28 pg (25-35); MEAN CORPUSCULAR HGB CONC 32 g/dL (31-37); MEAN CORPUSCULAR VOLUME 90 fL (79-100); MONO # 3.2 x10^3/uL (0.0-1.1); MONO % 13 % (0-9); NEUT % 75 % (31-73); PLATELET COUNT 233 x10^3/uL (140-400); RED BLOOD COUNT 3.07 x10^6/uL (3.50-5.40)
[2017-06-28 11:29] LABS: PROCALCITONIN 0.26 ng/mL (0.00-0.10)
[2017-06-28] MEDS: MIDAZOLAM 100MG/100ML PREMIX 100 ML IV (13:27)
[2017-06-28] MEDS: VITS A & D/LANOLIN TOPICAL OINTMENT 56GM TUBE. TP (13:28)
[2017-06-28] MEDS: NYSTATIN TOPICAL POWDER 15GM BOTTLE. TP ×2 (13:28→20:43)
[2017-06-28] MEDS: NYSTATIN 100,000 UNIT/GM TOPICAL CREAM 15GM TUBE. TP ×2 (13:28→20:43)
[2017-06-28] MEDS: MICAFUNGIN 100 MG in IV NORMAL SALINE 100ML 100 ML IV (13:44)
[2017-06-28] MEDS ORDERED: DIGOXIN 125 MCG TABLET. PO (14:00)
[2017-06-28] MEDS ORDERED: HEPARIN for IV BOLUS 10,000 UNIT/10 ML VIAL. (14:09)
[2017-06-28] MEDS ORDERED: LIDOCAINE WITH 8.4% SOD BICARB 3 ML DISP.SYRIN. IJ (14:09)
[2017-06-28] MEDS: LIDOCAINE WITH 8.4% SOD BICARB 3 ML DISP.SYRIN. IJ (14:32)
[2017-06-28] MEDS ORDERED: DIGOXIN PEG (15:00)
[2017-06-28] MEDS ORDERED: IV NORMAL SALINE 1000ML BAG 1,000 ML IV ×2 (15:05)
[2017-06-28] MEDS ORDERED: 0.9 % SODIUM CHLORIDE 10 ML DISP.SYRIN. IV ×2 (15:15)
[2017-06-28] MEDS ORDERED: DIALYSIS PATIENT. MC ×2 (15:15)
[2017-06-28 18:13] LABS: C DIFF BY PCR Negative (Negative)
[2017-06-28] MEDS: ATORVASTATIN CALCIUM 40 MG TABLET. PO (20:29)
[2017-06-28] MEDS: TAMSULOSIN 0.4 MG CAP.ER.24H. PO (20:30)
[2017-06-28] MEDS: DARBEPOETIN ALFA 60 MCG/0.3 ML DISP.SYRIN. SQ (20:31)
[2017-06-29] MEDS: MEROPENEM IV Push 500 MG VIAL. IVP ×4 (00:26→22:29)
[2017-06-29] MEDS: ALBUMIN HUMAN 25% 50 ML IV ×5 (00:27→23:43)
[2017-06-29 03:16] LABS: HEP B SURFACE ABDY Non Reactive (.); HEP B SURFACE AG Negative (Negative)
[2017-06-29 05:38] LABS: ADD MAN DIFF? NO
[2017-06-29 05:39] LABS: BASO # 0.1 x10^3/uL (0.0-0.2); BASO % 0 % (0-3); EOS # 0.3 x10^3/uL (0.0-0.7); EOS % 1 % (0-3); HEMATOCRIT 28.6 % (36.0-47.0); LYMPH # 2.1 x10^3/uL (1.0-4.8); LYMPH % 9 % (24-48); MEAN CORPUSCULAR HEMOGLOBIN 29 pg (25-35); MEAN CORPUSCULAR HGB CONC 32 g/dL (31-37); MEAN CORPUSCULAR VOLUME 92 fL (79-100); MONO # 2.5 x10^3/uL (0.0-1.1); MONO % 11 % (0-9); NEUT # 17.4 x10^3uL (1.8-7.7); NEUT % 78 % (31-73); PLATELET COUNT 244 x10^3/uL (140-400); RED BLOOD COUNT 3.13 x10^6/uL (3.50-5.40); WHITE BLOOD COUNT 22.4 x10^3/uL (4.0-11.0)
[2017-06-29 06:02] LABS: ANION GAP 10 (6-14); BLOOD UREA NITROGEN 53 mg/dL (7-20); CALCIUM 9.2 mg/dL (8.5-10.1); CARBON DIOXIDE 28 mmol/L (21-32); CHLORIDE 104 mmol/L (98-107); CREATININE 1.8 mg/dL (0.6-1.0); GFR 28.2; GLUCOSE 148 mg/dL (70-99); POTASSIUM 3.8 mmol/L (3.5-5.1); SODIUM 142 mmol/L (136-145)
[2017-06-29 06:10] LABS: CREATINE KINASE 26 U/L (26-192)
[2017-06-29] MEDS: BUDESONIDE 0.5 MG/2 ML NEBU. NEB ×2 (07:36→19:41)
[2017-06-29] MEDS: IPRATRPIUM/ALBUTEROL 0.5/2.5MG 3 ML NEBU. NEB ×4 (07:36→19:41)
[2017-06-29 07:57] LABS: BASE EXCESS ABG -2 mmol/L (-3-3); HCO3 ABG 22 mmol/L (21-28); PCO2 ABG 32 mmHg (35-46); PH ABG 7.45 (7.35-7.45); PO2 ABG 90 mmHg (65-108); SAT O2 ABG 96 % (92-99)
[2017-06-29 07:59] LABS: FIO2 ABG 40
[2017-06-29] MEDS: METOPROLOL TART IMMED RELEASE 25 MG TABLET. PO ×2 (09:00→20:42)
[2017-06-29] MEDS: HALOPERIDOL 5 MG TABLET. PO (10:34)
[2017-06-29] MEDS: LINEZOLID 600 MG TABLET PO ×2 (10:34→20:41)
[2017-06-29] MEDS: PIOGLITAZONE 15 MG TABLET. PO (10:34)
[2017-06-29] MEDS: valACYclovir 500 MG TABLET. PO (10:34)
[2017-06-29] MEDS: LEVOTHYROXINE 125 MCG TABLET PO (10:34)
[2017-06-29] MEDS: ASPIRIN CHEWABLE 81 MG TABLET. PO (10:34)
[2017-06-29] MEDS: FERROUS SULFATE 325 MG TABLET. PO (10:34)
[2017-06-29] MEDS: PANTOPRAZOLE IV PUSH 40 MG VIAL. IVP (10:36)
[2017-06-29] MEDS: ALBUMIN HUMAN 5% 500 ML IV (10:36)
[2017-06-29] MEDS: IRON SUCROSE COMPLEX 200 MG in TOTAL VOLUME SYRINGE 0 ML IV (10:36)
[2017-06-29] MEDS: NYSTATIN TOPICAL POWDER 15GM BOTTLE. TP ×2 (10:37→20:42)
[2017-06-29] MEDS: NYSTATIN 100,000 UNIT/GM TOPICAL CREAM 15GM TUBE. TP ×2 (10:37→20:42)
[2017-06-29] MEDS: HEPARIN PF for SUB-Q USE 5,000 UNIT/0.5 ML VIAL. SQ ×3 (10:38→21:40)
[2017-06-29] MEDS: MICAFUNGIN 100 MG in IV NORMAL SALINE 100ML 100 ML IV (13:02)
[2017-06-29] MEDS: NOREPINEPHRIN PREMIX 250 ML IV (14:16)
[2017-06-29] MEDS: MIDAZOLAM 100MG/100ML PREMIX 100 ML IV (16:22)
[2017-06-29] MEDS ORDERED: IV NORMAL SALINE 1000ML BAG 1,000 ML IV ×2 (18:33)
[2017-06-29] MEDS ORDERED: diphenhydrAMINE 50 MG/ML VIAL IV ×2 (18:45)
[2017-06-29] MEDS ORDERED: ALBUMIN HUMAN 25% 200 ML IV (18:45)
[2017-06-29] MEDS ORDERED: DIALYSIS PATIENT. MC (18:45)
[2017-06-29] MEDS ORDERED: ACETAMINOPHEN 500 MG TABLET PO (18:45)
[2017-06-29] MEDS: TAMSULOSIN 0.4 MG CAP.ER.24H. PO (20:41)
[2017-06-29] MEDS: ATORVASTATIN CALCIUM 40 MG TABLET. PO (20:41)
[2017-06-29] MEDS: CHLORHEXIDINE 0.12% 15 ML MOUTHWASH. MM (20:41)
[2017-06-30] MEDS: MEROPENEM IV Push 500 MG VIAL. IVP ×4 (02:14→17:36)
[2017-06-30] MEDS: ALBUMIN HUMAN 25% 50 ML IV ×3 (05:40→17:37)
[2017-06-30] MEDS: NOREPINEPHRIN PREMIX 250 ML IV ×2 (05:41→20:46)
[2017-06-30] MEDS: HEPARIN PF for SUB-Q USE 5,000 UNIT/0.5 ML VIAL. SQ ×3 (05:46→21:45)
[2017-06-30 06:46] LABS: INR 1.5 (0.8-1.1); PROTHROMBIN TIME PATIENT 16.9 SEC (11.7-14.0)
[2017-06-30 06:51] LABS: ANION GAP 10 (6-14); BLOOD UREA NITROGEN 41 mg/dL (7-20); CALCIUM 9.5 mg/dL (8.5-10.1); CARBON DIOXIDE 30 mmol/L (21-32); CHLORIDE 101 mmol/L (98-107); CREATININE 1.4 mg/dL (0.6-1.0); GFR 37.6; GLUCOSE 132 mg/dL (70-99); POTASSIUM 3.8 mmol/L (3.5-5.1); SODIUM 141 mmol/L (136-145)
[2017-06-30 06:57] LABS: CREATINE KINASE 31 U/L (26-192)
[2017-06-30] MEDS: BUDESONIDE 0.5 MG/2 ML NEBU. NEB ×2 (07:16→20:08)
[2017-06-30] MEDS: IPRATRPIUM/ALBUTEROL 0.5/2.5MG 3 ML NEBU. NEB ×4 (07:16→20:08)
[2017-06-30 07:39] LABS: BASE EXCESS ABG 4 mmol/L (-3-3); HCO3 ABG 26 mmol/L (21-28); PCO2 ABG 29 mmHg (35-46); PO2 ABG 69 mmHg (65-108); SAT O2 ABG 95 % (92-99)
[2017-06-30 07:45] LABS: FIO2 ABG 40; PH ABG 7.56 (7.35-7.45)
[2017-06-30] MEDS ORDERED: IV NORMAL SALINE 1000ML BAG 1,000 ML IV ×2 (08:41)
[2017-06-30] MEDS ORDERED: DIALYSIS PATIENT. MC ×2 (08:45)
[2017-06-30] MEDS ORDERED: ALBUMIN HUMAN 25% 200 ML IV (08:45)
[2017-06-30] MEDS ORDERED: 0.9 % SODIUM CHLORIDE 10 ML DISP.SYRIN. IV ×2 (08:45)
[2017-06-30] MEDS: METOPROLOL TART IMMED RELEASE 25 MG TABLET. PO ×2 (09:00→20:45)
[2017-06-30] MEDS: PANTOPRAZOLE IV PUSH 40 MG VIAL. IVP (12:13)
[2017-06-30] MEDS: CHLORHEXIDINE 0.12% 15 ML MOUTHWASH. MM ×2 (12:14→20:44)
[2017-06-30] MEDS: MICAFUNGIN 100 MG in IV NORMAL SALINE 100ML 100 ML IV (12:15)
[2017-06-30] MEDS: FERROUS SULFATE 325 MG TABLET. PO (12:16)
[2017-06-30] MEDS: ASPIRIN CHEWABLE 81 MG TABLET. PO (12:16)
[2017-06-30] MEDS: valACYclovir 500 MG TABLET. PO (12:16)
[2017-06-30] MEDS: LINEZOLID 600 MG TABLET PO ×2 (12:16→20:44)
[2017-06-30] MEDS: HALOPERIDOL 5 MG TABLET. PO (12:18)
[2017-06-30] MEDS: PIOGLITAZONE 15 MG TABLET. PO (12:18)
[2017-06-30] MEDS: DIGOXIN 125 MCG TABLET. PEG (12:18)
[2017-06-30] MEDS: LEVOTHYROXINE 125 MCG TABLET PO (12:19)
[2017-06-30] MEDS: NYSTATIN 100,000 UNIT/GM TOPICAL CREAM 15GM TUBE. TP ×2 (12:20→20:46)
[2017-06-30] MEDS: NYSTATIN TOPICAL POWDER 15GM BOTTLE. TP ×2 (12:20→20:46)
[2017-06-30] MEDS: MIDAZOLAM 100MG/100ML PREMIX 100 ML IV (18:27)
[2017-06-30] MEDS: TAMSULOSIN 0.4 MG CAP.ER.24H. PO (20:44)
[2017-06-30] MEDS: ATORVASTATIN CALCIUM 40 MG TABLET. PO (20:45)
[2017-07-01] MEDS: MEROPENEM IV Push 500 MG VIAL. IVP ×4 (00:04→17:36)
[2017-07-01] MEDS: ALBUMIN HUMAN 25% 50 ML IV ×4 (00:05→17:36)
[2017-07-01] MEDS: HEPARIN PF for SUB-Q USE 5,000 UNIT/0.5 ML VIAL. SQ ×3 (06:08→20:51)
[2017-07-01 06:27] LABS: ADD MAN DIFF? NO
[2017-07-01 06:55] LABS: ANION GAP 9 (6-14); BLOOD UREA NITROGEN 34 mg/dL (7-20); CALCIUM 8.9 mg/dL (8.5-10.1); CARBON DIOXIDE 32 mmol/L (21-32); CHLORIDE 100 mmol/L (98-107); CREATININE 1.1 mg/dL (0.6-1.0); GFR 49.7; GLUCOSE 133 mg/dL (70-99); SODIUM 141 mmol/L (136-145)
[2017-07-01 06:56] LABS: BASO % 0 % (0-3); EOS # 0.3 x10^3/uL (0.0-0.7); EOS % 2 % (0-3); HEMATOCRIT 28.2 % (36.0-47.0); HEMOGLOBIN 8.9 g/dL (12.0-15.5); LYMPH # 1.7 x10^3/uL (1.0-4.8); LYMPH % 11 % (24-48); MEAN CORPUSCULAR HEMOGLOBIN 30 pg (25-35); MEAN CORPUSCULAR HGB CONC 32 g/dL (31-37); MEAN CORPUSCULAR VOLUME 94 fL (79-100); MONO # 1.6 x10^3/uL (0.0-1.1); MONO % 10 % (0-9); NEUT # 11.8 x10^3uL (1.8-7.7); NEUT % 77 % (31-73); PLATELET COUNT 246 x10^3/uL (140-400); RED BLOOD COUNT 3.01 x10^6/uL (3.50-5.40); RED CELL DISTRIBUTION WIDTH 16.7 % (11.5-14.5); WHITE BLOOD COUNT 15.5 x10^3/uL (4.0-11.0)
[2017-07-01] MEDS: BUDESONIDE 0.5 MG/2 ML NEBU. NEB ×2 (06:58→20:05)
[2017-07-01] MEDS: IPRATRPIUM/ALBUTEROL 0.5/2.5MG 3 ML NEBU. NEB ×4 (06:59→20:05)
[2017-07-01] MEDS: METOPROLOL TART IMMED RELEASE 25 MG TABLET. PO ×2 (07:43→20:48)
[2017-07-01] MEDS: PANTOPRAZOLE IV PUSH 40 MG VIAL. IVP (07:51)
[2017-07-01] MEDS: LEVOTHYROXINE 125 MCG TABLET PO (07:51)
[2017-07-01] MEDS: FERROUS SULFATE 325 MG TABLET. PO (07:51)
[2017-07-01] MEDS: CHLORHEXIDINE 0.12% 15 ML MOUTHWASH. MM ×2 (07:51→20:47)
[2017-07-01] MEDS: ASPIRIN CHEWABLE 81 MG TABLET. PO (07:51)
[2017-07-01] MEDS: HALOPERIDOL 5 MG TABLET. PO (07:52)
[2017-07-01] MEDS: NYSTATIN 100,000 UNIT/GM TOPICAL CREAM 15GM TUBE. TP ×2 (07:52→20:50)
[2017-07-01] MEDS: NYSTATIN TOPICAL POWDER 15GM BOTTLE. TP ×2 (07:52→20:49)
[2017-07-01] MEDS: LINEZOLID 600 MG TABLET PO ×2 (07:52→20:49)
[2017-07-01] MEDS: valACYclovir 500 MG TABLET. PO (07:52)
[2017-07-01] MEDS: PIOGLITAZONE 15 MG TABLET. PO (07:52)
[2017-07-01 07:58] LABS: BASE EXCESS ABG 7 mmol/L (-3-3); HCO3 ABG 32 mmol/L (21-28); PCO2 ABG 45 mmHg (35-46); PH ABG 7.46 (7.35-7.45); PO2 ABG 79 mmHg (65-108); SAT O2 ABG 95 % (92-99)
[2017-07-01 08:00] LABS: FIO2 ABG 40
[2017-07-01 10:41] LABS: PLT ESTIMATE ADEQUATE (ADEQUATE)
[2017-07-01 10:43] LABS: ANISOCYTOSIS PRESENT; HYPOCHROMIA PRESENT; MICROCYTOSIS PRESENT; POIKILOCYTOSIS PRESENT; POLYCHROMASIA PRESENT
[2017-07-01] MEDS: NOREPINEPHRIN PREMIX 250 ML IV ×2 (11:04→20:50)
[2017-07-01] MEDS: MICAFUNGIN 100 MG in IV NORMAL SALINE 100ML 100 ML IV (11:04)
[2017-07-01] MEDS: MIDAZOLAM 100MG/100ML PREMIX 100 ML IV (13:20)
[2017-07-01] MEDS: ATORVASTATIN CALCIUM 40 MG TABLET. PO (20:47)
[2017-07-01] MEDS: TAMSULOSIN 0.4 MG CAP.ER.24H. PO (20:47)
[2017-07-01] MEDS: VITS A & D/LANOLIN TOPICAL OINTMENT 56GM TUBE. TP (20:49)
[2017-07-02] MEDS: ALBUMIN HUMAN 25% 50 ML IV ×5 (00:38→23:56)
[2017-07-02] MEDS: HEPARIN PF for SUB-Q USE 5,000 UNIT/0.5 ML VIAL. SQ ×3 (05:35→22:00)
[2017-07-02 06:49] LABS: ADD MAN DIFF? NO
[2017-07-02 07:17] LABS: BASO % 0 % (0-3); EOS # 0.4 x10^3/uL (0.0-0.7); EOS % 3 % (0-3); HEMATOCRIT 26.1 % (36.0-47.0); HEMOGLOBIN 8.6 g/dL (12.0-15.5); LYMPH # 1.5 x10^3/uL (1.0-4.8); LYMPH % 11 % (24-48); MEAN CORPUSCULAR HEMOGLOBIN 30 pg (25-35); MEAN CORPUSCULAR HGB CONC 33 g/dL (31-37); MEAN CORPUSCULAR VOLUME 92 fL (79-100); MONO # 1.2 x10^3/uL (0.0-1.1); MONO % 9 % (0-9); NEUT # 10.7 x10^3uL (1.8-7.7); NEUT % 78 % (31-73); PLATELET COUNT 250 x10^3/uL (140-400); RED BLOOD COUNT 2.83 x10^6/uL (3.50-5.40); RED CELL DISTRIBUTION WIDTH 16.3 % (11.5-14.5); WHITE BLOOD COUNT 13.8 x10^3/uL (4.0-11.0)
[2017-07-02] MEDS: BUDESONIDE 0.5 MG/2 ML NEBU. NEB ×2 (07:20→19:01)
[2017-07-02] MEDS: IPRATRPIUM/ALBUTEROL 0.5/2.5MG 3 ML NEBU. NEB ×4 (07:20→19:01)
[2017-07-02 07:28] LABS: ANION GAP 10 (6-14); BLOOD UREA NITROGEN 45 mg/dL (7-20); CALCIUM 9.6 mg/dL (8.5-10.1); CARBON DIOXIDE 32 mmol/L (21-32); CHLORIDE 100 mmol/L (98-107); CREATININE 1.2 mg/dL (0.6-1.0); GFR 44.9; GLUCOSE 127 mg/dL (70-99); POTASSIUM 4.5 mmol/L (3.5-5.1); SODIUM 142 mmol/L (136-145)
[2017-07-02] MEDS: METOPROLOL TART IMMED RELEASE 25 MG TABLET. PO ×2 (09:00→21:29)
[2017-07-02] MEDS ORDERED: IV NORMAL SALINE 1000ML BAG 1,000 ML IV (09:04)
[2017-07-02] MEDS ORDERED: DIALYSIS PATIENT. MC (09:15)
[2017-07-02] MEDS ORDERED: 0.9 % SODIUM CHLORIDE 10 ML DISP.SYRIN. IV ×2 (09:15)
[2017-07-02] MEDS: LINEZOLID 600 MG TABLET PO ×2 (12:21→21:26)
[2017-07-02] MEDS: LEVOTHYROXINE 125 MCG TABLET PO (12:21)
[2017-07-02] MEDS: ALBUMIN HUMAN 5% 500 ML IV (12:21)
[2017-07-02] MEDS: PANTOPRAZOLE IV PUSH 40 MG VIAL. IVP (12:21)
[2017-07-02] MEDS: NOREPINEPHRIN PREMIX 250 ML IV (12:22)
[2017-07-02] MEDS: DIGOXIN 125 MCG TABLET. PEG (12:22)
[2017-07-02] MEDS: FERROUS SULFATE 325 MG TABLET. PO (12:22)
[2017-07-02] MEDS: PIOGLITAZONE 15 MG TABLET. PO (12:22)
[2017-07-02] MEDS: HALOPERIDOL 5 MG TABLET. PO (12:22)
[2017-07-02] MEDS: ASPIRIN CHEWABLE 81 MG TABLET. PO (12:22)
[2017-07-02] MEDS: valACYclovir 500 MG TABLET. PO (12:22)
[2017-07-02] MEDS: TAMSULOSIN 0.4 MG CAP.ER.24H. PO (12:22)
[2017-07-02] MEDS: NYSTATIN 100,000 UNIT/GM TOPICAL CREAM 15GM TUBE. TP ×2 (12:23→21:29)
[2017-07-02] MEDS: NYSTATIN TOPICAL POWDER 15GM BOTTLE. TP ×2 (12:23→21:29)
[2017-07-02] MEDS: CHLORHEXIDINE 0.12% 15 ML MOUTHWASH. MM ×2 (12:24→21:27)
[2017-07-02] MEDS: IRON SUCROSE COMPLEX 200 MG in TOTAL VOLUME SYRINGE 0 ML IV (12:24)
[2017-07-02 13:04] LABS: INR 1.4 (0.8-1.1); PROTHROMBIN TIME PATIENT 16.1 SEC (11.7-14.0)
[2017-07-02] MEDS: MIDAZOLAM 100MG/100ML PREMIX 100 ML IV (14:59)
[2017-07-02 15:23] LABS: PARTIAL THROMBOPLASTIN TIME 39 SEC (24-38)
[2017-07-02] MEDS: MEROPENEM IV Push 500 MG VIAL. IVP (18:30)
[2017-07-02] MEDS: ATORVASTATIN CALCIUM 40 MG TABLET. PO (21:26)
[2017-07-03] MEDS: NOREPINEPHRIN PREMIX 250 ML IV ×3 (00:34→19:46)
[2017-07-03] MEDS: HEPARIN PF for SUB-Q USE 5,000 UNIT/0.5 ML VIAL. SQ ×3 (06:00→22:06)
[2017-07-03] MEDS: ALBUMIN HUMAN 25% 50 ML IV ×2 (06:12→12:00)
[2017-07-03 06:49] LABS: ALBUMIN 3.9 g/dL (3.4-5.0)
[2017-07-03] MEDS ORDERED: HYDROmorphone 2 MG/ML VIAL IV (07:00)
[2017-07-03] MEDS ORDERED: MORPHINE SULFATE 2 MG/ML DISP.SYRIN. IV (07:00)
[2017-07-03] MEDS ORDERED: ONDANSETRON PF 4 MG/2 ML VIAL. IV (07:00)
[2017-07-03] MEDS ORDERED: PROCHLORPERAZINE 10 MG/2 ML VIAL. IV (07:00)
[2017-07-03] MEDS ORDERED: fentaNYL PF VIAL 100 MCG/2 ML VIAL IV ×2 (07:00)
[2017-07-03] MEDS ORDERED: LIDOCAINE 1% PF 2 ML VIAL. ID (07:00)
[2017-07-03] MEDS: LEVOTHYROXINE 125 MCG TABLET PO (07:06)
[2017-07-03 07:58] LABS: ADD MAN DIFF? NO
[2017-07-03 08:06] LABS: BASO % 0 % (0-3); EOS # 0.2 x10^3/uL (0.0-0.7); EOS % 1 % (0-3); HEMATOCRIT 26.5 % (36.0-47.0); HEMOGLOBIN 8.4 g/dL (12.0-15.5); LYMPH # 1.7 x10^3/uL (1.0-4.8); LYMPH % 13 % (24-48); MEAN CORPUSCULAR HEMOGLOBIN 30 pg (25-35); MEAN CORPUSCULAR HGB CONC 32 g/dL (31-37); MEAN CORPUSCULAR VOLUME 94 fL (79-100); MONO # 1.3 x10^3/uL (0.0-1.1); MONO % 10 % (0-9); NEUT # 9.9 x10^3uL (1.8-7.7); NEUT % 76 % (31-73); PLATELET COUNT 268 x10^3/uL (140-400); RED BLOOD COUNT 2.82 x10^6/uL (3.50-5.40); WHITE BLOOD COUNT 13.1 x10^3/uL (4.0-11.0)
[2017-07-03 08:07] LABS: ANION GAP 10 (6-14); BLOOD UREA NITROGEN 39 mg/dL (7-20); CALCIUM 9.3 mg/dL (8.5-10.1); CARBON DIOXIDE 30 mmol/L (21-32); CHLORIDE 101 mmol/L (98-107); CREATININE 1.1 mg/dL (0.6-1.0); GFR 49.7; GLUCOSE 139 mg/dL (70-99); POTASSIUM 4.1 mmol/L (3.5-5.1); SODIUM 141 mmol/L (136-145)
[2017-07-03] MEDS: MIDAZOLAM 100MG/100ML PREMIX 100 ML IV (08:34)
[2017-07-03 08:49] LABS: PROCALCITONIN 0.26 ng/mL (0.00-0.10)
[2017-07-03] MEDS: IPRATRPIUM/ALBUTEROL 0.5/2.5MG 3 ML NEBU. NEB ×4 (08:54→20:00)
[2017-07-03] MEDS: BUDESONIDE 0.5 MG/2 ML NEBU. NEB ×2 (08:54→20:00)
[2017-07-03] MEDS: PIOGLITAZONE 15 MG TABLET. PO (09:00)
[2017-07-03] MEDS: METOPROLOL TART IMMED RELEASE 25 MG TABLET. PO ×2 (09:00→20:35)
[2017-07-03 09:24] LABS: BASE EXCESS ABG 4 mmol/L (-3-3); HCO3 ABG 28 mmol/L (21-28); PCO2 ABG 42 mmHg (35-46); PH ABG 7.45 (7.35-7.45); PO2 ABG 75 mmHg (65-108); SAT O2 ABG 94 % (92-99)
[2017-07-03 09:26] LABS: FIO2 ABG 40
[2017-07-03] MEDS: CHLORHEXIDINE 0.12% 15 ML MOUTHWASH. MM ×2 (09:32→20:35)
[2017-07-03] MEDS: IV RINGERS,LACTATED 1000ML 1,000 ML IV (09:32)
[2017-07-03] MEDS: PANTOPRAZOLE IV PUSH 40 MG VIAL. IVP (09:32)
[2017-07-03] MEDS: VITS A & D/LANOLIN TOPICAL OINTMENT 56GM TUBE. TP (09:33)
[2017-07-03] MEDS: NYSTATIN TOPICAL POWDER 15GM BOTTLE. TP ×2 (09:34→20:38)
[2017-07-03] MEDS: NYSTATIN 100,000 UNIT/GM TOPICAL CREAM 15GM TUBE. TP ×2 (09:34→20:39)
[2017-07-03] MEDS ORDERED: IV NORMAL SALINE 1000ML BAG 1,000 ML IV (12:07)
[2017-07-03] MEDS ORDERED: DIALYSIS PATIENT. MC ×2 (12:15)
[2017-07-03] MEDS ORDERED: ALBUMIN HUMAN 25% 200 ML IV (12:15)
[2017-07-03] MEDS: valACYclovir 500 MG TABLET. PO (13:53)
[2017-07-03] MEDS: FERROUS SULFATE 325 MG TABLET. PO (13:54)
[2017-07-03] MEDS: LINEZOLID 600 MG TABLET PO ×2 (13:54→20:35)
[2017-07-03] MEDS: HALOPERIDOL 5 MG TABLET. PO (13:54)
[2017-07-03] MEDS: ASPIRIN CHEWABLE 81 MG TABLET. PO (13:54)
[2017-07-03] MEDS: MEROPENEM IV Push 500 MG VIAL. IVP (16:40)
[2017-07-03] MEDS: ATORVASTATIN CALCIUM 40 MG TABLET. PO (20:35)
[2017-07-03] MEDS: TAMSULOSIN 0.4 MG CAP.ER.24H. PO (20:35)
[2017-07-04] MEDS: NOREPINEPHRIN PREMIX 250 ML IV ×3 (04:41→20:35)
[2017-07-04 05:34] LABS: ADD MAN DIFF? NO
[2017-07-04 05:58] LABS: BASO % 0 % (0-3); EOS # 0.1 x10^3/uL (0.0-0.7); EOS % 1 % (0-3); HEMOGLOBIN 8.7 g/dL (12.0-15.5); LYMPH # 1.3 x10^3/uL (1.0-4.8); LYMPH % 9 % (24-48); MEAN CORPUSCULAR HEMOGLOBIN 31 pg (25-35); MEAN CORPUSCULAR HGB CONC 32 g/dL (31-37); MEAN CORPUSCULAR VOLUME 96 fL (79-100); MONO # 1.6 x10^3/uL (0.0-1.1); MONO % 10 % (0-9); NEUT # 12.4 x10^3uL (1.8-7.7); NEUT % 80 % (31-73); PLATELET COUNT 298 x10^3/uL (140-400); RED BLOOD COUNT 2.81 x10^6/uL (3.50-5.40); RED CELL DISTRIBUTION WIDTH 16.9 % (11.5-14.5); WHITE BLOOD COUNT 15.5 x10^3/uL (4.0-11.0)
[2017-07-04 06:08] LABS: ALBUMIN 3.7 g/dL (3.4-5.0); ALBUMIN/GLOBULIN RATIO 1.3 (1.0-1.7); ALK PHOS 209 U/L (46-116); ALT (SGPT) 38 U/L (14-59); ANION GAP 10 (6-14); AST (SGOT) 46 U/L (15-37); BLOOD UREA NITROGEN 47 mg/dL (7-20); BUN/CREATININE RATIO 36 (6-20); CALCIUM 9.3 mg/dL (8.5-10.1); CARBON DIOXIDE 28 mmol/L (21-32); CHLORIDE 100 mmol/L (98-107); CREATININE 1.3 mg/dL (0.6-1.0); GLUCOSE 160 mg/dL (70-99); POTASSIUM 4.4 mmol/L (3.5-5.1); SODIUM 138 mmol/L (136-145); TOTAL BILIRUBIN 1.1 mg/dL (0.2-1.0); TOTAL PROTEIN 6.6 g/dL (6.4-8.2)
[2017-07-04] MEDS: LEVOTHYROXINE 125 MCG TABLET PO (06:18)
[2017-07-04] MEDS: HEPARIN PF for SUB-Q USE 5,000 UNIT/0.5 ML VIAL. SQ ×3 (06:18→22:16)
[2017-07-04] MEDS: BUDESONIDE 0.5 MG/2 ML NEBU. NEB ×2 (07:26→19:47)
[2017-07-04] MEDS: IPRATRPIUM/ALBUTEROL 0.5/2.5MG 3 ML NEBU. NEB ×4 (07:26→19:47)
[2017-07-04] MEDS: METOPROLOL TART IMMED RELEASE 25 MG TABLET. PO ×2 (07:33→21:00)
[2017-07-04] MEDS: ASPIRIN CHEWABLE 81 MG TABLET. PO (07:41)
[2017-07-04] MEDS: FERROUS SULFATE 325 MG TABLET. PO (07:41)
[2017-07-04] MEDS: PANTOPRAZOLE IV PUSH 40 MG VIAL. IVP (07:41)
[2017-07-04] MEDS: CHLORHEXIDINE 0.12% 15 ML MOUTHWASH. MM ×2 (07:41→22:13)
[2017-07-04] MEDS: HALOPERIDOL 5 MG TABLET. PO (07:42)
[2017-07-04] MEDS: PIOGLITAZONE 15 MG TABLET. PO (07:42)
[2017-07-04] MEDS: LINEZOLID 600 MG TABLET PO ×2 (07:42→22:12)
[2017-07-04] MEDS: DIGOXIN 125 MCG TABLET. PEG (07:42)
[2017-07-04] MEDS: valACYclovir 500 MG TABLET. PO (07:43)
[2017-07-04] MEDS: NYSTATIN TOPICAL POWDER 15GM BOTTLE. TP ×2 (07:43→22:13)
[2017-07-04] MEDS: NYSTATIN 100,000 UNIT/GM TOPICAL CREAM 15GM TUBE. TP ×2 (07:43→22:14)
[2017-07-04] MEDS: ALBUMIN HUMAN 5% 500 ML IV ×2 (11:17→13:54)
[2017-07-04] MEDS: MICAFUNGIN 100 MG in IV NORMAL SALINE 100ML 100 ML IV (13:53)
[2017-07-04] MEDS: MEROPENEM IV Push 500 MG VIAL. IVP ×2 (16:27→18:00)
[2017-07-04] MEDS: MIDAZOLAM 100MG/100ML PREMIX 100 ML IV (16:43)
[2017-07-04] MEDS ORDERED: MEROPENEM IV Push 500 MG VIAL. IVP (18:00)
[2017-07-04] MEDS: TAMSULOSIN 0.4 MG CAP.ER.24H. PO (22:12)
[2017-07-04] MEDS: ATORVASTATIN CALCIUM 40 MG TABLET. PO (22:13)
[2017-07-05] MEDS: NOREPINEPHRIN PREMIX 250 ML IV ×2 (03:46→09:28)
[2017-07-05] MEDS: HEPARIN PF for SUB-Q USE 5,000 UNIT/0.5 ML VIAL. SQ ×3 (06:40→22:16)
[2017-07-05] MEDS: LEVOTHYROXINE 125 MCG TABLET PO (06:46)
[2017-07-05] MEDS: BUDESONIDE 0.5 MG/2 ML NEBU. NEB ×2 (07:44→19:44)
[2017-07-05] MEDS: IPRATRPIUM/ALBUTEROL 0.5/2.5MG 3 ML NEBU. NEB ×4 (07:44→19:44)
[2017-07-05] MEDS: FERROUS SULFATE 325 MG TABLET. PO (08:00)
[2017-07-05] MEDS ORDERED: CONTRAST GIVEN MC (08:30)
[2017-07-05] MEDS: IOHEXOL 240 MG/ML 50ML VIAL. PO (08:30)
[2017-07-05] MEDS: METOPROLOL TART IMMED RELEASE 25 MG TABLET. PO ×2 (08:44→20:11)
[2017-07-05] MEDS: PIOGLITAZONE 15 MG TABLET. PO (08:51)
[2017-07-05] MEDS: ASPIRIN CHEWABLE 81 MG TABLET. PO (08:51)
[2017-07-05] MEDS: CHLORHEXIDINE 0.12% 15 ML MOUTHWASH. MM ×2 (08:51→20:10)
[2017-07-05] MEDS: LINEZOLID 600 MG TABLET PO ×2 (08:51→20:11)
[2017-07-05] MEDS: PANTOPRAZOLE IV PUSH 40 MG VIAL. IVP (08:51)
[2017-07-05] MEDS: HALOPERIDOL 5 MG TABLET. PO (08:51)
[2017-07-05] MEDS: valACYclovir 500 MG TABLET. PO (08:51)
[2017-07-05] MEDS: FERROUS SULFATE ORAL 300 MG/5 ML SOLUTION. PO (08:56)
[2017-07-05] MEDS ORDERED: CEFEPIME HCL 1 GM in IV DEXTROSE 5% 50 ML IV (09:00)
[2017-07-05] MEDS: CEFEPIME HCL IV Push 1 GM VIAL. IVP (09:28)
[2017-07-05] MEDS: MICAFUNGIN 100 MG in IV NORMAL SALINE 100ML 100 ML IV (09:41)
[2017-07-05] MEDS: NYSTATIN 100,000 UNIT/GM TOPICAL CREAM 15GM TUBE. TP ×2 (09:44→20:12)
[2017-07-05] MEDS: NYSTATIN TOPICAL POWDER 15GM BOTTLE. TP ×2 (09:44→20:12)
[2017-07-05 10:31] LABS: BASO # 0.1 x10^3/uL (0.0-0.2); BASO % 0 % (0-3); EOS # 0.1 x10^3/uL (0.0-0.7); EOS % 0 % (0-3); HEMATOCRIT 26.5 % (36.0-47.0); HEMOGLOBIN 8.3 g/dL (12.0-15.5); LYMPH # 1.2 x10^3/uL (1.0-4.8); LYMPH % 6 % (24-48); MEAN CORPUSCULAR HEMOGLOBIN 30 pg (25-35); MEAN CORPUSCULAR HGB CONC 31 g/dL (31-37); MEAN CORPUSCULAR VOLUME 96 fL (79-100); MONO # 1.9 x10^3/uL (0.0-1.1); MONO % 9 % (0-9); NEUT # 17.6 x10^3uL (1.8-7.7); NEUT % 84 % (31-73); PLATELET COUNT 322 x10^3/uL (140-400); RED BLOOD COUNT 2.76 x10^6/uL (3.50-5.40); RED CELL DISTRIBUTION WIDTH 16.9 % (11.5-14.5); WHITE BLOOD COUNT 20.9 x10^3/uL (4.0-11.0)
[2017-07-05 10:42] LABS: ANION GAP 13 (6-14); BLOOD UREA NITROGEN 70 mg/dL (7-20); CALCIUM 9.3 mg/dL (8.5-10.1); CARBON DIOXIDE 26 mmol/L (21-32); CHLORIDE 99 mmol/L (98-107); CREATININE 1.6 mg/dL (0.6-1.0); GFR 32.2; GLUCOSE 171 mg/dL (70-99); POTASSIUM 4.4 mmol/L (3.5-5.1); SODIUM 138 mmol/L (136-145)
[2017-07-05 10:46] LABS: ADD MAN DIFF? YES
[2017-07-05 11:23] LABS: % BANDS 1 % (0-9); % LYMPHS 3 % (24-48); % MONOS 8 % (0-10); % SEGS 88 % (35-66); NUCLEATED RBC 5
[2017-07-05 11:24] LABS: ANISOCYTOSIS PRESENT; PLT ESTIMATE ADEQUATE (ADEQUATE)
[2017-07-05 11:25] LABS: POLYCHROMASIA PRESENT; TARGET CELLS FEW; TOXIC GRANULATION PRESENT
[2017-07-05] MEDS: IV NORMAL SALINE 1000ML BAG 1,000 ML IV ×2 (11:56→15:49)
[2017-07-05] MEDS: VITS A & D/LANOLIN TOPICAL OINTMENT 56GM TUBE. TP ×2 (12:01→23:45)
[2017-07-05 12:40] LABS: POC GLUCOSE 158 mg/dL (70-99)
[2017-07-05] MEDS: MIDAZOLAM 100MG/100ML PREMIX 100 ML IV (13:04)
[2017-07-05] MEDS: NOREPINEPHRINE VIAL 16 MG in IV NORMAL SALINE 250ML 250 ML IV (16:27)
[2017-07-05 18:32] LABS: POC GLUCOSE 153 mg/dL (70-99)
[2017-07-05] MEDS: TAMSULOSIN 0.4 MG CAP.ER.24H. PO (20:10)
[2017-07-05] MEDS: ATORVASTATIN CALCIUM 40 MG TABLET. PO (20:11)
[2017-07-05] MEDS: DARBEPOETIN ALFA 60 MCG/0.3 ML DISP.SYRIN. SQ (20:12)
[2017-07-06] MEDS: NOREPINEPHRINE VIAL 16 MG in IV NORMAL SALINE 250ML 250 ML IV ×2 (02:23→14:29)
[2017-07-06 05:04] LABS: ADD MAN DIFF? NO
[2017-07-06 05:16] LABS: BASO # 0.1 x10^3/uL (0.0-0.2); BASO % 0 % (0-3); EOS # 0.1 x10^3/uL (0.0-0.7); EOS % 1 % (0-3); HEMATOCRIT 27.3 % (36.0-47.0); HEMOGLOBIN 8.7 g/dL (12.0-15.5); LYMPH # 1.1 x10^3/uL (1.0-4.8); LYMPH % 6 % (24-48); MEAN CORPUSCULAR HEMOGLOBIN 31 pg (25-35); MEAN CORPUSCULAR HGB CONC 32 g/dL (31-37); MEAN CORPUSCULAR VOLUME 96 fL (79-100); MONO % 11 % (0-9); NEUT # 14.3 x10^3uL (1.8-7.7); NEUT % 82 % (31-73); PLATELET COUNT 339 x10^3/uL (140-400); RED BLOOD COUNT 2.83 x10^6/uL (3.50-5.40); RED CELL DISTRIBUTION WIDTH 17.9 % (11.5-14.5); WHITE BLOOD COUNT 17.5 x10^3/uL (4.0-11.0)
[2017-07-06] MEDS: HEPARIN PF for SUB-Q USE 5,000 UNIT/0.5 ML VIAL. SQ ×3 (05:17→20:48)
[2017-07-06 05:43] LABS: ALBUMIN 3.4 g/dL (3.4-5.0); ALBUMIN/GLOBULIN RATIO 1.2 (1.0-1.7); ALK PHOS 220 U/L (46-116); ALT (SGPT) 81 U/L (14-59); ANION GAP 14 (6-14); AST (SGOT) 100 U/L (15-37); BLOOD UREA NITROGEN 80 mg/dL (7-20); BUN/CREATININE RATIO 44 (6-20); CALCIUM 9.4 mg/dL (8.5-10.1); CARBON DIOXIDE 24 mmol/L (21-32); CHLORIDE 100 mmol/L (98-107); CREATININE 1.8 mg/dL (0.6-1.0); GFR 28.2; GLUCOSE 157 mg/dL (70-99); POTASSIUM 4.4 mmol/L (3.5-5.1); SODIUM 138 mmol/L (136-145); TOTAL PROTEIN 6.3 g/dL (6.4-8.2)
[2017-07-06] MEDS: LEVOTHYROXINE 125 MCG TABLET PO (06:00)
[2017-07-06] MEDS: METOPROLOL TART IMMED RELEASE 25 MG TABLET. PO ×2 (07:27→20:39)
[2017-07-06] MEDS: BUDESONIDE 0.5 MG/2 ML NEBU. NEB ×2 (07:45→19:26)
[2017-07-06] MEDS: IPRATRPIUM/ALBUTEROL 0.5/2.5MG 3 ML NEBU. NEB ×4 (07:46→19:26)
[2017-07-06 08:15] LABS: BASE EXCESS ABG -4 mmol/L (-3-3); HCO3 ABG 21 mmol/L (21-28); PCO2 ABG 37 mmHg (35-46); PH ABG 7.37 (7.35-7.45); PO2 ABG 75 mmHg (65-108); SAT O2 ABG 93 % (92-99)
[2017-07-06 08:17] LABS: FIO2 ABG 40
[2017-07-06] MEDS: VITS A & D/LANOLIN TOPICAL OINTMENT 56GM TUBE. TP (08:17)
[2017-07-06] MEDS: NYSTATIN 100,000 UNIT/GM TOPICAL CREAM 15GM TUBE. TP ×2 (08:18→20:44)
[2017-07-06] MEDS: NYSTATIN TOPICAL POWDER 15GM BOTTLE. TP ×2 (08:18→20:44)
[2017-07-06] MEDS: PANTOPRAZOLE IV PUSH 40 MG VIAL. IVP (08:19)
[2017-07-06] MEDS: valACYclovir 500 MG TABLET. PO (08:19)
[2017-07-06] MEDS: DIGOXIN 125 MCG TABLET. PEG (08:19)
[2017-07-06] MEDS: FERROUS SULFATE ORAL 300 MG/5 ML SOLUTION. PO (08:19)
[2017-07-06] MEDS: CHLORHEXIDINE 0.12% 15 ML MOUTHWASH. MM ×2 (08:20→20:43)
[2017-07-06] MEDS: HALOPERIDOL 5 MG TABLET. PO (08:20)
[2017-07-06] MEDS: LINEZOLID 600 MG TABLET PO ×2 (08:20→20:43)
[2017-07-06] MEDS: PIOGLITAZONE 15 MG TABLET. PO (08:20)
[2017-07-06] MEDS: ASPIRIN CHEWABLE 81 MG TABLET. PO (08:20)
[2017-07-06] MEDS: CEFEPIME HCL IV Push 1 GM VIAL. IVP (09:01)
[2017-07-06] MEDS: MICAFUNGIN 100 MG in IV NORMAL SALINE 100ML 100 ML IV (09:03)
[2017-07-06] MEDS: IV NORMAL SALINE 1000ML BAG 1,000 ML IV ×2 (09:05→16:00)
[2017-07-06] MEDS ORDERED: VASOPRESSIN 40 UNIT in IV DEXTROSE 5% 100 ML IV (11:45)
[2017-07-06] MEDS: VASOPRESSIN 40 UNIT in IV NORMAL SALINE 100ML 100 ML IV (11:49)
[2017-07-06 12:50] LABS: THYROID STIM HORMONE (TSH) 23.784 uIU/mL (0.358-3.74)
[2017-07-06] MEDS: HYDROCORTISONE SOD SUCC/PF 100 MG/2 ML VIAL. IV ×2 (12:50→20:43)
[2017-07-06 14:08] LABS: PROCALCITONIN 0.59 ng/mL (0.00-0.10)
[2017-07-06] MEDS: MIDAZOLAM 100MG/100ML PREMIX 100 ML IV (18:22)
[2017-07-06] MEDS: ATORVASTATIN CALCIUM 40 MG TABLET. PO (20:43)
[2017-07-06] MEDS: TAMSULOSIN 0.4 MG CAP.ER.24H. PO (20:43)
[2017-07-07] MEDS: NOREPINEPHRINE VIAL 16 MG in IV NORMAL SALINE 250ML 250 ML IV (01:47)
[2017-07-07] MEDS: VASOPRESSIN 40 UNIT in IV NORMAL SALINE 100ML 100 ML IV ×2 (01:47→19:41)
[2017-07-07] MEDS: LEVOTHYROXINE 100 MCG TABLET PO (05:40)
[2017-07-07] MEDS: HYDROCORTISONE SOD SUCC/PF 100 MG/2 ML VIAL. IV ×3 (05:40→21:35)
[2017-07-07] MEDS: HEPARIN PF for SUB-Q USE 5,000 UNIT/0.5 ML VIAL. SQ ×3 (05:41→21:36)
[2017-07-07] MEDS: PANTOPRAZOLE IV PUSH 40 MG VIAL. IVP (07:58)
[2017-07-07] MEDS: valACYclovir 500 MG TABLET. PO (07:58)
[2017-07-07] MEDS: FERROUS SULFATE ORAL 300 MG/5 ML SOLUTION. PO (07:58)
[2017-07-07] MEDS: ASPIRIN CHEWABLE 81 MG TABLET. PO (07:58)
[2017-07-07] MEDS: LINEZOLID 600 MG TABLET PO ×2 (07:59→21:36)
[2017-07-07] MEDS: NYSTATIN TOPICAL POWDER 15GM BOTTLE. TP ×2 (07:59→21:36)
[2017-07-07] MEDS: PIOGLITAZONE 15 MG TABLET. PO (07:59)
[2017-07-07] MEDS: NYSTATIN 100,000 UNIT/GM TOPICAL CREAM 15GM TUBE. TP ×2 (08:00→21:36)
[2017-07-07] MEDS: VITS A & D/LANOLIN TOPICAL OINTMENT 56GM TUBE. TP (08:00)
[2017-07-07] MEDS: METOPROLOL TART IMMED RELEASE 25 MG TABLET. PO ×2 (09:00→21:00)
[2017-07-07] MEDS: IPRATRPIUM/ALBUTEROL 0.5/2.5MG 3 ML NEBU. NEB ×4 (09:01→20:15)
[2017-07-07] MEDS: BUDESONIDE 0.5 MG/2 ML NEBU. NEB ×2 (09:01→20:16)
[2017-07-07 09:23] LABS: BASE EXCESS ABG -5 mmol/L (-3-3); HCO3 ABG 21 mmol/L (21-28); PCO2 ABG 41 mmHg (35-46); PH ABG 7.32 (7.35-7.45); PO2 ABG 58 mmHg (65-108); SAT O2 ABG 85 % (92-99)
[2017-07-07 09:36] LABS: FIO2 ABG 60
[2017-07-07] MEDS: CEFEPIME HCL IV Push 1 GM VIAL. IVP (09:47)
[2017-07-07] MEDS: CHLORHEXIDINE 0.12% 15 ML MOUTHWASH. MM ×2 (09:48→21:00)
[2017-07-07] MEDS: MICAFUNGIN 100 MG in IV NORMAL SALINE 100ML 100 ML IV (10:56)
[2017-07-07] MEDS: HALOPERIDOL 5 MG TABLET. PO (10:56)
[2017-07-07] MEDS: MIDAZOLAM 100MG/100ML PREMIX 100 ML IV (19:41)
[2017-07-07] MEDS: ATORVASTATIN CALCIUM 40 MG TABLET. PO (21:36)
[2017-07-07] MEDS: TAMSULOSIN 0.4 MG CAP.ER.24H. PO (21:36)
[2017-07-08] MEDS: NOREPINEPHRINE VIAL 16 MG in IV NORMAL SALINE 250ML 250 ML IV (03:36)
[2017-07-08 05:26] LABS: ANION GAP 14 (6-14); BLOOD UREA NITROGEN 89 mg/dL (7-20); CALCIUM 9.5 mg/dL (8.5-10.1); CARBON DIOXIDE 24 mmol/L (21-32); CHLORIDE 104 mmol/L (98-107); CREATININE 1.4 mg/dL (0.6-1.0); GFR 37.6; GLUCOSE 255 mg/dL (70-99); SODIUM 142 mmol/L (136-145)
[2017-07-08] MEDS: HEPARIN PF for SUB-Q USE 5,000 UNIT/0.5 ML VIAL. SQ ×3 (05:32→20:53)
[2017-07-08] MEDS: HYDROCORTISONE SOD SUCC/PF 100 MG/2 ML VIAL. IV ×3 (05:32→20:53)
[2017-07-08] MEDS: IPRATRPIUM/ALBUTEROL 0.5/2.5MG 3 ML NEBU. NEB ×4 (08:01→19:31)
[2017-07-08] MEDS: BUDESONIDE 0.5 MG/2 ML NEBU. NEB ×2 (08:01→19:31)
[2017-07-08 08:19] LABS: BASE EXCESS ABG -3 mmol/L (-3-3); HCO3 ABG 23 mmol/L (21-28); PCO2 ABG 43 mmHg (35-46); PH ABG 7.34 (7.35-7.45); PO2 ABG 76 mmHg (65-108); SAT O2 ABG 93 % (92-99)
[2017-07-08 08:21] LABS: FIO2 ABG 65
[2017-07-08] MEDS: PANTOPRAZOLE IV PUSH 40 MG VIAL. IVP (08:56)
[2017-07-08] MEDS: DIGOXIN 125 MCG TABLET. PEG (08:56)
[2017-07-08] MEDS: FERROUS SULFATE ORAL 300 MG/5 ML SOLUTION. PO (08:56)
[2017-07-08] MEDS: MICAFUNGIN 100 MG in IV NORMAL SALINE 100ML 100 ML IV (08:57)
[2017-07-08] MEDS: PIOGLITAZONE 15 MG TABLET. PO (08:57)
[2017-07-08] MEDS: valACYclovir 500 MG TABLET. PO (08:57)
[2017-07-08] MEDS: HALOPERIDOL 5 MG TABLET. PO (08:57)
[2017-07-08] MEDS: CEFEPIME HCL IV Push 1 GM VIAL. IVP (08:57)
[2017-07-08] MEDS: ASPIRIN CHEWABLE 81 MG TABLET. PO (08:58)
[2017-07-08] MEDS: NYSTATIN 100,000 UNIT/GM TOPICAL CREAM 15GM TUBE. TP ×2 (08:58→20:53)
[2017-07-08] MEDS: NYSTATIN TOPICAL POWDER 15GM BOTTLE. TP ×2 (08:58→20:53)
[2017-07-08] MEDS: METOPROLOL TART IMMED RELEASE 25 MG TABLET. PO ×2 (08:58→20:54)
[2017-07-08] MEDS: LEVOTHYROXINE 100 MCG TABLET PO (08:58)
[2017-07-08] MEDS: LINEZOLID 600 MG TABLET PO ×2 (10:59→20:51)
[2017-07-08] MEDS: CHLORHEXIDINE 0.12% 15 ML MOUTHWASH. MM ×2 (10:59→20:51)
[2017-07-08] MEDS: IV NORMAL SALINE 1000ML BAG 1,000 ML IV ×2 (10:59→19:12)
[2017-07-08] MEDS: FUROSEMIDE 40 MG/4 ML VIAL. IVP (13:55)
[2017-07-08] MEDS: VASOPRESSIN 40 UNIT in IV NORMAL SALINE 100ML 100 ML IV (14:03)
[2017-07-08] MEDS: MIDAZOLAM 100MG/100ML PREMIX 100 ML IV (16:49)
[2017-07-08] MEDS: TAMSULOSIN 0.4 MG CAP.ER.24H. PO (20:51)
[2017-07-08] MEDS: ATORVASTATIN CALCIUM 40 MG TABLET. PO (20:51)
[2017-07-09] MEDS: VASOPRESSIN 40 UNIT in IV NORMAL SALINE 100ML 100 ML IV ×2 (05:16→23:57)
[2017-07-09] MEDS: HYDROCORTISONE SOD SUCC/PF 100 MG/2 ML VIAL. IV ×3 (05:17→21:39)
[2017-07-09] MEDS: HEPARIN PF for SUB-Q USE 5,000 UNIT/0.5 ML VIAL. SQ ×3 (05:18→21:41)
[2017-07-09 05:57] LABS: ADD MAN DIFF? NO
[2017-07-09 06:02] LABS: BASO % 0 % (0-3); EOS % 0 % (0-3); HEMATOCRIT 24.2 % (36.0-47.0); HEMOGLOBIN 7.7 g/dL (12.0-15.5); LYMPH # 0.4 x10^3/uL (1.0-4.8); LYMPH % 3 % (24-48); MEAN CORPUSCULAR HEMOGLOBIN 31 pg (25-35); MEAN CORPUSCULAR HGB CONC 32 g/dL (31-37); MEAN CORPUSCULAR VOLUME 96 fL (79-100); MONO # 1.5 x10^3/uL (0.0-1.1); MONO % 13 % (0-9); NEUT # 9.7 x10^3uL (1.8-7.7); NEUT % 84 % (31-73); PLATELET COUNT 305 x10^3/uL (140-400); RED BLOOD COUNT 2.52 x10^6/uL (3.50-5.40); RED CELL DISTRIBUTION WIDTH 16.9 % (11.5-14.5); WHITE BLOOD COUNT 11.6 x10^3/uL (4.0-11.0)
[2017-07-09 06:23] LABS: ANION GAP 12 (6-14); BLOOD UREA NITROGEN 96 mg/dL (7-20); CALCIUM 9.2 mg/dL (8.5-10.1); CARBON DIOXIDE 23 mmol/L (21-32); CHLORIDE 106 mmol/L (98-107); CREATININE 1.3 mg/dL (0.6-1.0); GLUCOSE 297 mg/dL (70-99); MAGNESIUM 2.1 mg/dL (1.8-2.4); PHOSPHORUS 4.7 mg/dL (2.6-4.7); POTASSIUM 3.6 mmol/L (3.5-5.1); SODIUM 141 mmol/L (136-145)
[2017-07-09] MEDS: METOPROLOL TART IMMED RELEASE 25 MG TABLET. PO ×2 (07:29→21:00)
[2017-07-09] MEDS: BUDESONIDE 0.5 MG/2 ML NEBU. NEB ×2 (08:50→19:40)
[2017-07-09] MEDS: IPRATRPIUM/ALBUTEROL 0.5/2.5MG 3 ML NEBU. NEB ×4 (08:50→19:40)
[2017-07-09] MEDS: PANTOPRAZOLE IV PUSH 40 MG VIAL. IVP (09:08)
[2017-07-09] MEDS: HALOPERIDOL 5 MG TABLET. PO (09:09)
[2017-07-09] MEDS: LEVOTHYROXINE 100 MCG TABLET PO (09:09)
[2017-07-09] MEDS: valACYclovir 500 MG TABLET. PO (09:09)
[2017-07-09] MEDS: FUROSEMIDE 40 MG/4 ML VIAL. IVP ×2 (09:09→15:33)
[2017-07-09] MEDS: FERROUS SULFATE ORAL 300 MG/5 ML SOLUTION. PO (09:09)
[2017-07-09] MEDS: PIOGLITAZONE 15 MG TABLET. PO (09:09)
[2017-07-09] MEDS: CEFEPIME HCL IV Push 1 GM VIAL. IVP (09:09)
[2017-07-09] MEDS: ASPIRIN CHEWABLE 81 MG TABLET. PO (09:09)
[2017-07-09] MEDS: CHLORHEXIDINE 0.12% 15 ML MOUTHWASH. MM ×2 (09:09→21:39)
[2017-07-09] MEDS: MICAFUNGIN 100 MG in IV NORMAL SALINE 100ML 100 ML IV (09:10)
[2017-07-09 09:11] LABS: BASE EXCESS ABG -3 mmol/L (-3-3); HCO3 ABG 23 mmol/L (21-28); PCO2 ABG 45 mmHg (35-46); PH ABG 7.32 (7.35-7.45); PO2 ABG 111 mmHg (65-108); SAT O2 ABG 97 % (92-99)
[2017-07-09] MEDS: NYSTATIN TOPICAL POWDER 15GM BOTTLE. TP ×2 (09:11→21:42)
[2017-07-09] MEDS: NYSTATIN 100,000 UNIT/GM TOPICAL CREAM 15GM TUBE. TP ×2 (09:11→21:42)
[2017-07-09 09:18] LABS: FIO2 ABG 65
[2017-07-09] MEDS: LINEZOLID 600 MG TABLET PO ×2 (10:44→21:39)
[2017-07-09] MEDS: MIDAZOLAM 100MG/100ML PREMIX 100 ML IV (11:10)
[2017-07-09] MEDS: NOREPINEPHRINE VIAL 16 MG in IV NORMAL SALINE 250ML 250 ML IV (11:30)
[2017-07-09] MEDS: IV NORMAL SALINE 1000ML BAG 1,000 ML IV (16:00)
[2017-07-09] MEDS: TAMSULOSIN 0.4 MG CAP.ER.24H. PO (21:38)
[2017-07-09] MEDS: ATORVASTATIN CALCIUM 40 MG TABLET. PO (21:39)
[2017-07-10] MEDS: MIDAZOLAM 100MG/100ML PREMIX 100 ML IV ×2 (00:56→17:56)
[2017-07-10] MEDS: HYDROCORTISONE SOD SUCC/PF 100 MG/2 ML VIAL. IV ×3 (05:34→20:54)
[2017-07-10] MEDS: HEPARIN PF for SUB-Q USE 5,000 UNIT/0.5 ML VIAL. SQ ×3 (05:36→21:05)
[2017-07-10 05:57] LABS: ANION GAP 15 (6-14); BLOOD UREA NITROGEN 108 mg/dL (7-20); CALCIUM 9.2 mg/dL (8.5-10.1); CARBON DIOXIDE 24 mmol/L (21-32); CHLORIDE 106 mmol/L (98-107); CREATININE 1.5 mg/dL (0.6-1.0); GFR 34.7; GLUCOSE 320 mg/dL (70-99); MAGNESIUM 2.1 mg/dL (1.8-2.4); POTASSIUM 3.7 mmol/L (3.5-5.1); SODIUM 145 mmol/L (136-145)
[2017-07-10] MEDS: METOPROLOL TART IMMED RELEASE 25 MG TABLET. PO ×2 (08:00→20:54)
[2017-07-10] MEDS: IPRATRPIUM/ALBUTEROL 0.5/2.5MG 3 ML NEBU. NEB ×4 (08:14→19:59)
[2017-07-10] MEDS: BUDESONIDE 0.5 MG/2 ML NEBU. NEB ×2 (08:15→20:00)
[2017-07-10 08:36] LABS: BASE EXCESS ABG -4 mmol/L (-3-3); HCO3 ABG 22 mmol/L (21-28); PCO2 ABG 46 mmHg (35-46); PO2 ABG 118 mmHg (65-108); SAT O2 ABG 98 % (92-99)
[2017-07-10 08:51] LABS: FIO2 ABG 65
[2017-07-10 09:38] LABS: THYROID STIM HORMONE (TSH) 6.359 uIU/mL (0.358-3.74)
[2017-07-10] MEDS: FERROUS SULFATE ORAL 300 MG/5 ML SOLUTION. PO (10:09)
[2017-07-10] MEDS: valACYclovir 500 MG TABLET. PO (10:12)
[2017-07-10] MEDS: LINEZOLID 600 MG TABLET PO ×2 (10:12→20:54)
[2017-07-10] MEDS: CEFEPIME HCL IV Push 1 GM VIAL. IVP (10:12)
[2017-07-10] MEDS: CHLORHEXIDINE 0.12% 15 ML MOUTHWASH. MM ×2 (10:12→20:54)
[2017-07-10] MEDS: FUROSEMIDE 40 MG/4 ML VIAL. IVP ×2 (10:12→14:56)
[2017-07-10] MEDS: ASPIRIN CHEWABLE 81 MG TABLET. PO (10:13)
[2017-07-10] MEDS: LEVOTHYROXINE 100 MCG TABLET PO (10:13)
[2017-07-10] MEDS: HALOPERIDOL 5 MG TABLET. PO (10:13)
[2017-07-10] MEDS: DIGOXIN 125 MCG TABLET. PEG (10:13)
[2017-07-10] MEDS: PANTOPRAZOLE IV PUSH 40 MG VIAL. IVP (10:13)
[2017-07-10] MEDS: MICAFUNGIN 100 MG in IV NORMAL SALINE 100ML 100 ML IV (10:14)
[2017-07-10] MEDS: NYSTATIN 100,000 UNIT/GM TOPICAL CREAM 15GM TUBE. TP ×2 (10:14→20:55)
[2017-07-10] MEDS: NYSTATIN TOPICAL POWDER 15GM BOTTLE. TP ×2 (10:14→20:55)
[2017-07-10] MEDS: PIOGLITAZONE 15 MG TABLET. PO (10:18)
[2017-07-10] MEDS: VASOPRESSIN 40 UNIT in IV NORMAL SALINE 100ML 100 ML IV (13:35)
[2017-07-10] MEDS: ALBUMIN HUMAN 5% 500 ML IV (14:21)
[2017-07-10] MEDS: IV NORMAL SALINE 1000ML BAG 1,000 ML IV (16:00)
[2017-07-10] MEDS: ATORVASTATIN CALCIUM 40 MG TABLET. PO (20:54)
[2017-07-10] MEDS: TAMSULOSIN 0.4 MG CAP.ER.24H. PO (20:54)
[2017-07-11] MEDS: NOREPINEPHRINE VIAL 16 MG in IV NORMAL SALINE 250ML 250 ML IV ×2 (04:58→21:14)
[2017-07-11] MEDS: HYDROCORTISONE SOD SUCC/PF 100 MG/2 ML VIAL. IV (06:18)
[2017-07-11] MEDS: HEPARIN PF for SUB-Q USE 5,000 UNIT/0.5 ML VIAL. SQ ×3 (06:19→21:43)
[2017-07-11 06:49] LABS: ANION GAP 13 (6-14); BLOOD UREA NITROGEN 117 mg/dL (7-20); CALCIUM 8.9 mg/dL (8.5-10.1); CARBON DIOXIDE 25 mmol/L (21-32); CHLORIDE 109 mmol/L (98-107); CREATININE 1.4 mg/dL (0.6-1.0); GFR 37.6; GLUCOSE 365 mg/dL (70-99); POTASSIUM 3.6 mmol/L (3.5-5.1); SODIUM 147 mmol/L (136-145)
[2017-07-11] MEDS: BUDESONIDE 0.5 MG/2 ML NEBU. NEB ×2 (07:33→19:35)
[2017-07-11] MEDS: IPRATRPIUM/ALBUTEROL 0.5/2.5MG 3 ML NEBU. NEB ×4 (07:33→19:35)
[2017-07-11] MEDS: FERROUS SULFATE ORAL 300 MG/5 ML SOLUTION. PO (08:44)
[2017-07-11] MEDS: LINEZOLID 600 MG TABLET PO ×2 (08:45→21:04)
[2017-07-11] MEDS: ASPIRIN CHEWABLE 81 MG TABLET. PO (08:45)
[2017-07-11] MEDS: PIOGLITAZONE 15 MG TABLET. PO (08:45)
[2017-07-11] MEDS: LEVOTHYROXINE 100 MCG TABLET PO (08:45)
[2017-07-11] MEDS: valACYclovir 500 MG TABLET. PO (08:45)
[2017-07-11] MEDS: HALOPERIDOL 5 MG TABLET. PO (08:45)
[2017-07-11] MEDS: PANTOPRAZOLE IV PUSH 40 MG VIAL. IVP (08:46)
[2017-07-11] MEDS: CEFEPIME HCL IV Push 1 GM VIAL. IVP (08:46)
[2017-07-11] MEDS: FUROSEMIDE 40 MG/4 ML VIAL. IVP ×3 (08:46→19:54)
[2017-07-11] MEDS: CHLORHEXIDINE 0.12% 15 ML MOUTHWASH. MM ×2 (08:46→21:04)
[2017-07-11] MEDS: NYSTATIN TOPICAL POWDER 15GM BOTTLE. TP ×2 (08:47→21:04)
[2017-07-11] MEDS: METOPROLOL TART IMMED RELEASE 25 MG TABLET. PO ×2 (08:47→21:00)
[2017-07-11] MEDS: NYSTATIN 100,000 UNIT/GM TOPICAL CREAM 15GM TUBE. TP ×2 (08:47→21:04)
[2017-07-11 09:55] LABS: BASE EXCESS ABG -5 mmol/L (-3-3); HCO3 ABG 20 mmol/L (21-28); PCO2 ABG 38 mmHg (35-46); PH ABG 7.35 (7.35-7.45); PO2 ABG 93 mmHg (65-108); SAT O2 ABG 96 % (92-99)
[2017-07-11 10:02] LABS: FIO2 ABG 50
[2017-07-11] MEDS ORDERED: DEXTROSE 50% 25 GM / 50ML DISP.SYRIN. IV (10:15)
[2017-07-11] MEDS: INSULIN ASPART 300 UNITS/3 ML INSULN.PEN SQ ×2 (12:00→18:38)
[2017-07-11] MEDS: MICAFUNGIN 100 MG in IV NORMAL SALINE 100ML 100 ML IV (14:28)
[2017-07-11] MEDS: ALBUMIN HUMAN 25% 100 ML IV ×3 (14:29→23:58)
[2017-07-11] MEDS: IV NORMAL SALINE 1000ML BAG 1,000 ML IV (16:00)
[2017-07-11 18:41] LABS: POC GLUCOSE 334 mg/dL (70-99)
[2017-07-11 20:52] LABS: POC GLUCOSE 324 mg/dL (70-99)
[2017-07-11] MEDS: TAMSULOSIN 0.4 MG CAP.ER.24H. PO (21:04)
[2017-07-11] MEDS: ATORVASTATIN CALCIUM 40 MG TABLET. PO (21:04)
[2017-07-12] MEDS: FUROSEMIDE 40 MG/4 ML VIAL. IVP ×2 (00:02→09:05)
[2017-07-12] MEDS: VASOPRESSIN 40 UNIT in IV NORMAL SALINE 100ML 100 ML IV ×2 (01:32→17:33)
[2017-07-12] MEDS: MIDAZOLAM 100MG/100ML PREMIX 100 ML IV ×2 (02:04→17:34)
[2017-07-12] MEDS: HYDROCORTISONE SOD SUCC/PF 100 MG/2 ML VIAL. IV (06:20)
[2017-07-12] MEDS: ALBUMIN HUMAN 25% 100 ML IV ×4 (06:20→23:58)
[2017-07-12] MEDS: LEVOTHYROXINE 100 MCG TABLET PO (06:21)
[2017-07-12] MEDS: HEPARIN PF for SUB-Q USE 5,000 UNIT/0.5 ML VIAL. SQ ×3 (06:22→21:28)
[2017-07-12 06:40] LABS: ANION GAP 17 (6-14); BLOOD UREA NITROGEN 134 mg/dL (7-20); CALCIUM 9.1 mg/dL (8.5-10.1); CARBON DIOXIDE 22 mmol/L (21-32); CHLORIDE 110 mmol/L (98-107); CREATININE 1.6 mg/dL (0.6-1.0); GFR 32.2; GLUCOSE 349 mg/dL (70-99); MAGNESIUM 2.2 mg/dL (1.8-2.4); PHOSPHORUS 3.8 mg/dL (2.6-4.7); POTASSIUM 3.3 mmol/L (3.5-5.1); SODIUM 149 mmol/L (136-145)
[2017-07-12] MEDS: IPRATRPIUM/ALBUTEROL 0.5/2.5MG 3 ML NEBU. NEB ×4 (06:57→19:38)
[2017-07-12] MEDS: BUDESONIDE 0.5 MG/2 ML NEBU. NEB ×2 (06:57→19:38)
[2017-07-12 08:23] LABS: BASE EXCESS ABG -5 mmol/L (-3-3); HCO3 ABG 19 mmol/L (21-28); PCO2 ABG 32 mmHg (35-46); PO2 ABG 88 mmHg (65-108); SAT O2 ABG 96 % (92-99)
[2017-07-12 08:27] LABS: FIO2 ABG 40
[2017-07-12] MEDS: METOPROLOL TART IMMED RELEASE 25 MG TABLET. PO (09:00)
[2017-07-12] MEDS: FERROUS SULFATE ORAL 300 MG/5 ML SOLUTION. PO (09:02)
[2017-07-12] MEDS: PIOGLITAZONE 15 MG TABLET. PO (09:04)
[2017-07-12] MEDS: DIGOXIN 125 MCG TABLET. PEG (09:04)
[2017-07-12] MEDS: PANTOPRAZOLE IV PUSH 40 MG VIAL. IVP (09:05)
[2017-07-12] MEDS: valACYclovir 500 MG TABLET. PO (09:05)
[2017-07-12] MEDS: ASPIRIN CHEWABLE 81 MG TABLET. PO (09:05)
[2017-07-12] MEDS: HALOPERIDOL 5 MG TABLET. PO (09:05)
[2017-07-12] MEDS: NYSTATIN 100,000 UNIT/GM TOPICAL CREAM 15GM TUBE. TP ×2 (09:06→21:26)
[2017-07-12] MEDS: CEFEPIME HCL IV Push 1 GM VIAL. IVP (09:06)
[2017-07-12] MEDS: NYSTATIN TOPICAL POWDER 15GM BOTTLE. TP ×2 (09:06→21:26)
[2017-07-12] MEDS: MICAFUNGIN 100 MG in IV NORMAL SALINE 100ML 100 ML IV (09:07)
[2017-07-12] MEDS: INSULIN ASPART 300 UNITS/3 ML INSULN.PEN SQ ×3 (09:11→17:51)
[2017-07-12] MEDS: CHLORHEXIDINE 0.12% 15 ML MOUTHWASH. MM ×2 (09:12→21:25)
[2017-07-12] MEDS: LINEZOLID 600 MG TABLET PO ×2 (09:14→21:25)
[2017-07-12] MEDS ORDERED: IV NORMAL SALINE 1000ML BAG 1,000 ML IV ×2 (11:20)
[2017-07-12] MEDS ORDERED: DIALYSIS PATIENT. MC (11:30)
[2017-07-12] MEDS ORDERED: 0.9 % SODIUM CHLORIDE 10 ML DISP.SYRIN. IV ×2 (11:30)
[2017-07-12] MEDS ORDERED: diphenhydrAMINE 50 MG/ML VIAL IV ×2 (11:30)
[2017-07-12] MEDS: IV NORMAL SALINE 1000ML BAG 1,000 ML IV (16:00)
[2017-07-12 17:27] LABS: POC GLUCOSE 229 mg/dL (70-99)
[2017-07-12] MEDS: ALBUMIN HUMAN 25% 200 ML IV (17:46)
[2017-07-12] MEDS: ATORVASTATIN CALCIUM 40 MG TABLET. PO (21:25)
[2017-07-12] MEDS: DARBEPOETIN ALFA 60 MCG/0.3 ML DISP.SYRIN. SQ (21:26)
[2017-07-13] MEDS: INSULIN ASPART 300 UNITS/3 ML INSULN.PEN SQ ×6 (00:01→17:48)
[2017-07-13 00:06] LABS: POC GLUCOSE 335 mg/dL (70-99)
[2017-07-13] MEDS: NOREPINEPHRINE VIAL 16 MG in IV NORMAL SALINE 250ML 250 ML IV (03:38)
[2017-07-13] MEDS: HYDROCORTISONE SOD SUCC/PF 100 MG/2 ML VIAL. IV (05:44)
[2017-07-13] MEDS: ALBUMIN HUMAN 25% 100 ML IV ×4 (05:44→23:24)
[2017-07-13] MEDS: HEPARIN PF for SUB-Q USE 5,000 UNIT/0.5 ML VIAL. SQ ×3 (05:46→22:30)
[2017-07-13] MEDS: PHENYLEPHRINE INJ 80 MG in IV NORMAL SALINE 250ML 250 ML IV (05:47)
[2017-07-13 06:09] LABS: POC GLUCOSE 311 mg/dL (70-99)
[2017-07-13 06:25] LABS: ANION GAP 14 (6-14); BLOOD UREA NITROGEN 90 mg/dL (7-20); CALCIUM 8.3 mg/dL (8.5-10.1); CARBON DIOXIDE 26 mmol/L (21-32); CHLORIDE 105 mmol/L (98-107); CREATININE 1.3 mg/dL (0.6-1.0); GLUCOSE 296 mg/dL (70-99); MAGNESIUM 1.9 mg/dL (1.8-2.4); SODIUM 145 mmol/L (136-145)
[2017-07-13 06:30] LABS: POTASSIUM 2.9 mmol/L (3.5-5.1)
[2017-07-13] MEDS: BUDESONIDE 0.5 MG/2 ML NEBU. NEB ×2 (07:27→19:16)
[2017-07-13] MEDS: IPRATRPIUM/ALBUTEROL 0.5/2.5MG 3 ML NEBU. NEB ×4 (07:27→19:16)
[2017-07-13] MEDS ORDERED: 0.9 % SODIUM CHLORIDE 10 ML DISP.SYRIN. IV ×2 (08:00)
[2017-07-13] MEDS ORDERED: DIALYSIS PATIENT. MC ×2 (10:00)
[2017-07-13] MEDS: MICAFUNGIN 100 MG in IV NORMAL SALINE 100ML 100 ML IV (10:00)
[2017-07-13] MEDS: ASPIRIN CHEWABLE 81 MG TABLET. PO (13:33)
[2017-07-13] MEDS: FERROUS SULFATE ORAL 300 MG/5 ML SOLUTION. PO (13:33)
[2017-07-13] MEDS: CHLORHEXIDINE 0.12% 15 ML MOUTHWASH. MM ×2 (13:33→22:21)
[2017-07-13] MEDS: LEVOTHYROXINE 100 MCG TABLET PO (13:33)
[2017-07-13] MEDS: PIOGLITAZONE 15 MG TABLET. PO (13:33)
[2017-07-13] MEDS: PANTOPRAZOLE IV PUSH 40 MG VIAL. IVP (13:33)
[2017-07-13] MEDS: HALOPERIDOL 5 MG TABLET. PO (13:33)
[2017-07-13] MEDS: MULTIVITAMINS,THERAPEUTIC 5 ML ORAL LIQUID. FT (13:34)
[2017-07-13] MEDS: NYSTATIN TOPICAL POWDER 15GM BOTTLE. TP ×2 (13:35→22:21)
[2017-07-13] MEDS: NYSTATIN 100,000 UNIT/GM TOPICAL CREAM 15GM TUBE. TP ×2 (13:35→22:21)
[2017-07-13] MEDS: POTASSIUM CHLORIDE 20MEQ 50 ML IV ×2 (13:36→17:41)
[2017-07-13] MEDS: valACYclovir 500 MG TABLET. PO (14:14)
[2017-07-13] MEDS: CEFEPIME HCL IV Push 1 GM VIAL. IVP (14:15)
[2017-07-13] MEDS: LINEZOLID 600 MG TABLET PO ×2 (14:15→22:24)
[2017-07-13] MEDS: IV NORMAL SALINE 1000ML BAG 1,000 ML IV (16:00)
[2017-07-13 17:38] LABS: POC GLUCOSE 330 mg/dL (70-99)
[2017-07-13] MEDS: ATORVASTATIN CALCIUM 40 MG TABLET. PO (22:23)
[2017-07-13] MEDS: INSULIN DETEMIR 300 UNITS/3 ML INSULN.PEN. SQ (22:29)
[2017-07-14] MEDS: PHENYLEPHRINE INJ 80 MG in IV NORMAL SALINE 250ML 250 ML IV (01:00)
[2017-07-14] MEDS: INSULIN ASPART 300 UNITS/3 ML INSULN.PEN SQ ×8 (01:50→18:07)
[2017-07-14 02:01] LABS: POC GLUCOSE 324 mg/dL (70-99)
[2017-07-14 02:01] LABS: POC GLUCOSE 325 mg/dL (70-99)
[2017-07-14] MEDS: VASOPRESSIN 40 UNIT in IV NORMAL SALINE 100ML 100 ML IV (03:36)
[2017-07-14] MEDS: ALBUMIN HUMAN 25% 100 ML IV ×3 (04:58→18:30)
[2017-07-14] MEDS: HYDROCORTISONE SOD SUCC/PF 100 MG/2 ML VIAL. IV (04:58)
[2017-07-14 05:54] LABS: ADD MAN DIFF? NO
[2017-07-14] MEDS: HEPARIN PF for SUB-Q USE 5,000 UNIT/0.5 ML VIAL. SQ ×4 (06:00→22:00)
[2017-07-14 06:15] LABS: BASO % 0 % (0-3); EOS % 0 % (0-3); LYMPH # 1.4 x10^3/uL (1.0-4.8); LYMPH % 14 % (24-48); MEAN CORPUSCULAR HEMOGLOBIN 29 pg (25-35); MEAN CORPUSCULAR HGB CONC 31 g/dL (31-37); MEAN CORPUSCULAR VOLUME 94 fL (79-100); MONO # 2.2 x10^3/uL (0.0-1.1); MONO % 21 % (0-9); NEUT # 6.7 x10^3uL (1.8-7.7); NEUT % 65 % (31-73); PLATELET COUNT 136 x10^3/uL (140-400); RED BLOOD COUNT 2.07 x10^6/uL (3.50-5.40); RED CELL DISTRIBUTION WIDTH 17.7 % (11.5-14.5); WHITE BLOOD COUNT 10.4 x10^3/uL (4.0-11.0)
[2017-07-14 06:21] LABS: HEMATOCRIT 19.4 % (36.0-47.0); HEMOGLOBIN 6.1 g/dL (12.0-15.5)
[2017-07-14 06:43] LABS: ALBUMIN 4.5 g/dL (3.4-5.0); ALBUMIN/GLOBULIN RATIO 2.3 (1.0-1.7); ALK PHOS 72 U/L (46-116); ALT (SGPT) 20 U/L (14-59); ANION GAP 14 (6-14); AST (SGOT) 11 U/L (15-37); BLOOD UREA NITROGEN 78 mg/dL (7-20); BUN/CREATININE RATIO 71 (6-20); CALCIUM 8.5 mg/dL (8.5-10.1); CARBON DIOXIDE 26 mmol/L (21-32); CHLORIDE 103 mmol/L (98-107); CREATININE 1.1 mg/dL (0.6-1.0); GFR 49.7; GLUCOSE 293 mg/dL (70-99); SODIUM 143 mmol/L (136-145); TOTAL BILIRUBIN 1.1 mg/dL (0.2-1.0); TOTAL PROTEIN 6.5 g/dL (6.4-8.2)
[2017-07-14] MEDS: BUDESONIDE 0.5 MG/2 ML NEBU. NEB ×2 (07:16→19:25)
[2017-07-14] MEDS: IPRATRPIUM/ALBUTEROL 0.5/2.5MG 3 ML NEBU. NEB ×4 (07:16→19:25)
[2017-07-14] MEDS: NOREPINEPHRINE VIAL 16 MG in IV NORMAL SALINE 250ML 250 ML IV ×3 (08:37→18:03)
[2017-07-14] MEDS: CHLORHEXIDINE 0.12% 15 ML MOUTHWASH. MM ×2 (09:21→21:27)
[2017-07-14] MEDS: PIOGLITAZONE 15 MG TABLET. PO (09:21)
[2017-07-14] MEDS: FERROUS SULFATE ORAL 300 MG/5 ML SOLUTION. PO (09:21)
[2017-07-14] MEDS: HALOPERIDOL 5 MG TABLET. PO (09:21)
[2017-07-14] MEDS: MULTIVITAMINS,THERAPEUTIC 5 ML ORAL LIQUID. FT (09:21)
[2017-07-14] MEDS: DIGOXIN 125 MCG TABLET. PEG (09:22)
[2017-07-14] MEDS: LEVOTHYROXINE 100 MCG TABLET PO (09:22)
[2017-07-14] MEDS: valACYclovir 500 MG TABLET. PO (09:22)
[2017-07-14] MEDS: LINEZOLID 600 MG TABLET PO ×2 (09:22→21:23)
[2017-07-14] MEDS: PANTOPRAZOLE IV PUSH 40 MG VIAL. IVP (09:22)
[2017-07-14] MEDS: ASPIRIN CHEWABLE 81 MG TABLET. PO (09:22)
[2017-07-14] MEDS: MICAFUNGIN 100 MG in IV NORMAL SALINE 100ML 100 ML IV (09:23)
[2017-07-14] MEDS: CEFEPIME HCL IV Push 1 GM VIAL. IVP (09:23)
[2017-07-14] MEDS: NYSTATIN 100,000 UNIT/GM TOPICAL CREAM 15GM TUBE. TP ×2 (09:23→21:27)
[2017-07-14] MEDS: NYSTATIN TOPICAL POWDER 15GM BOTTLE. TP ×2 (09:23→21:27)
[2017-07-14] MEDS: MIDAZOLAM 100MG/100ML PREMIX 100 ML IV ×2 (14:00)
[2017-07-14] MEDS ORDERED: DIGOXIN 250 MCG TABLET. PO (15:00)
[2017-07-14] MEDS ORDERED: IV NORMAL SALINE 1000ML BAG 1,000 ML IV ×2 (15:03)
[2017-07-14] MEDS ORDERED: ALBUMIN HUMAN 25% 200 ML IV (15:15)
[2017-07-14] MEDS ORDERED: DIALYSIS PATIENT. MC ×2 (15:15)
[2017-07-14] MEDS ORDERED: 0.9 % SODIUM CHLORIDE 10 ML DISP.SYRIN. IV ×2 (15:15)
[2017-07-14] MEDS: DIGOXIN IV 500 MCG/2 ML AMPUL. IV (15:17)
[2017-07-14 15:26] LABS: POC GLUCOSE 298 mg/dL (70-99)
[2017-07-14] MEDS: IV NORMAL SALINE 1000ML BAG 1,000 ML IV (16:00)
[2017-07-14 18:10] LABS: POC GLUCOSE 255 mg/dL (70-99)
[2017-07-14] MEDS: ATORVASTATIN CALCIUM 40 MG TABLET. PO (21:23)
[2017-07-14] MEDS: INSULIN DETEMIR 300 UNITS/3 ML INSULN.PEN. SQ (21:29)
[2017-07-14 21:34] LABS: POC GLUCOSE 272 mg/dL (70-99)
[2017-07-15] MEDS: MIDAZOLAM 100MG/100ML PREMIX 100 ML IV ×2 (00:43→21:44)
[2017-07-15 00:49] LABS: POC GLUCOSE 263 mg/dL (70-99)
[2017-07-15] MEDS: INSULIN ASPART 300 UNITS/3 ML INSULN.PEN SQ ×8 (01:03→17:43)
[2017-07-15] MEDS: NOREPINEPHRINE VIAL 16 MG in IV NORMAL SALINE 250ML 250 ML IV ×2 (03:11→21:44)
[2017-07-15] MEDS: ACETAMINOPHEN 650 MG/20.3 ML SOLUTION. PEG (04:22)
[2017-07-15] MEDS: HYDROCORTISONE SOD SUCC/PF 100 MG/2 ML VIAL. IV (04:23)
[2017-07-15 05:56] LABS: POC GLUCOSE 258 mg/dL (70-99)
[2017-07-15] MEDS: ALBUMIN HUMAN 25% 100 ML IV ×4 (05:59→17:41)
[2017-07-15 07:43] LABS: BASO # 0.1 x10^3/uL (0.0-0.2); BASO % 0 % (0-3); EOS % 0 % (0-3); LYMPH # 2.7 x10^3/uL (1.0-4.8); LYMPH % 16 % (24-48); MEAN CORPUSCULAR HEMOGLOBIN 30 pg (25-35); MEAN CORPUSCULAR HGB CONC 31 g/dL (31-37); MEAN CORPUSCULAR VOLUME 95 fL (79-100); MONO # 2.2 x10^3/uL (0.0-1.1); MONO % 13 % (0-9); NEUT # 11.7 x10^3uL (1.8-7.7); NEUT % 70 % (31-73); PLATELET COUNT 121 x10^3/uL (140-400); RED BLOOD COUNT 1.81 x10^6/uL (3.50-5.40); RED CELL DISTRIBUTION WIDTH 18.8 % (11.5-14.5); WHITE BLOOD COUNT 16.7 x10^3/uL (4.0-11.0)
[2017-07-15] MEDS: IPRATRPIUM/ALBUTEROL 0.5/2.5MG 3 ML NEBU. NEB ×4 (07:43→19:35)
[2017-07-15] MEDS: BUDESONIDE 0.5 MG/2 ML NEBU. NEB ×2 (07:44→19:35)
[2017-07-15 07:51] LABS: ANION GAP 13 (6-14); BLOOD UREA NITROGEN 99 mg/dL (7-20); CARBON DIOXIDE 25 mmol/L (21-32); CHLORIDE 104 mmol/L (98-107); CREATININE 1.4 mg/dL (0.6-1.0); GFR 37.6; GLUCOSE 259 mg/dL (70-99); SODIUM 142 mmol/L (136-145)
[2017-07-15 07:54] LABS: HEMOGLOBIN 5.4 g/dL (12.0-15.5)
[2017-07-15 07:55] LABS: ADD MAN DIFF? YES
[2017-07-15 08:00] LABS: POTASSIUM 2.8 mmol/L (3.5-5.1)
[2017-07-15 08:48] LABS: % BANDS 3 % (0-9); % LYMPHS 16 % (24-48); % MONOS 5 % (0-10); % SEGS 76 % (35-66); NUCLEATED RBC 46
[2017-07-15 09:02] LABS: PLT ESTIMATE DECREASED (ADEQUATE)
[2017-07-15 09:03] LABS: ANISOCYTOSIS SLIGHT
[2017-07-15 09:04] LABS: POIKILOCYTOSIS PRESENT
[2017-07-15] MEDS: MULTIVITAMINS,THERAPEUTIC 5 ML ORAL LIQUID. FT (09:29)
[2017-07-15] MEDS: valACYclovir 500 MG TABLET. PO (09:29)
[2017-07-15] MEDS: HALOPERIDOL 5 MG TABLET. PO (09:29)
[2017-07-15] MEDS: LEVOTHYROXINE 100 MCG TABLET PO (09:29)
[2017-07-15] MEDS: ASPIRIN CHEWABLE 81 MG TABLET. PO (09:29)
[2017-07-15] MEDS: LINEZOLID 600 MG TABLET PO (09:29)
[2017-07-15] MEDS: CHLORHEXIDINE 0.12% 15 ML MOUTHWASH. MM ×2 (09:30→21:42)
[2017-07-15] MEDS: CEFEPIME HCL IV Push 1 GM VIAL. IVP (09:30)
[2017-07-15] MEDS: FERROUS SULFATE ORAL 300 MG/5 ML SOLUTION. PO (09:30)
[2017-07-15] MEDS: PIOGLITAZONE 15 MG TABLET. PO (09:30)
[2017-07-15] MEDS: PANTOPRAZOLE IV PUSH 40 MG VIAL. IVP (09:30)
[2017-07-15] MEDS: NYSTATIN 100,000 UNIT/GM TOPICAL CREAM 15GM TUBE. TP ×2 (09:31→21:42)
[2017-07-15] MEDS: MICAFUNGIN 100 MG in IV NORMAL SALINE 100ML 100 ML IV (09:31)
[2017-07-15] MEDS: NYSTATIN TOPICAL POWDER 15GM BOTTLE. TP ×2 (09:32→21:43)
[2017-07-15] MEDS: VASOPRESSIN 40 UNIT in IV NORMAL SALINE 100ML 100 ML IV ×2 (10:54→21:43)
[2017-07-15 13:16] LABS: IMMEDIATE SPIN CROSSMATCH 1 2
[2017-07-15 13:26] LABS: POC GLUCOSE 265 mg/dL (70-99)
[2017-07-15] MEDS: IV NORMAL SALINE 1000ML BAG 1,000 ML IV (17:41)
[2017-07-15 19:13] LABS: POC GLUCOSE 232 mg/dL (70-99)
[2017-07-15] MEDS: ATORVASTATIN CALCIUM 40 MG TABLET. PO (21:42)
[2017-07-15] MEDS: INSULIN DETEMIR 300 UNITS/3 ML INSULN.PEN. SQ (21:47)
[2017-07-16] MEDS: ALBUMIN HUMAN 25% 100 ML IV ×4 (00:35→18:07)
[2017-07-16] MEDS: INSULIN ASPART 300 UNITS/3 ML INSULN.PEN SQ ×8 (00:36→18:35)
[2017-07-16 01:06] LABS: POC GLUCOSE 206 mg/dL (70-99)
[2017-07-16 01:06] LABS: POC GLUCOSE 219 mg/dL (70-99)
[2017-07-16] MEDS: HYDROCORTISONE SOD SUCC/PF 100 MG/2 ML VIAL. IV (05:20)
[2017-07-16 06:07] LABS: MEAN CORPUSCULAR HEMOGLOBIN 29 pg (25-35); MEAN CORPUSCULAR HGB CONC 31 g/dL (31-37); MEAN CORPUSCULAR VOLUME 94 fL (79-100); PLATELET COUNT 120 x10^3/uL (140-400); RED BLOOD COUNT 2.11 x10^6/uL (3.50-5.40); RED CELL DISTRIBUTION WIDTH 16.8 % (11.5-14.5); WHITE BLOOD COUNT 22.9 x10^3/uL (4.0-11.0)
[2017-07-16 06:15] LABS: ANION GAP 13 (6-14); BLOOD UREA NITROGEN 109 mg/dL (7-20); CALCIUM 8.8 mg/dL (8.5-10.1); CARBON DIOXIDE 25 mmol/L (21-32); CHLORIDE 102 mmol/L (98-107); CREATININE 1.7 mg/dL (0.6-1.0); GFR 30.1; GLUCOSE 249 mg/dL (70-99); SODIUM 140 mmol/L (136-145)
[2017-07-16 06:18] LABS: POTASSIUM 2.7 mmol/L (3.5-5.1)
[2017-07-16 06:19] LABS: HEMATOCRIT 19.8 % (36.0-47.0); HEMOGLOBIN 6.1 g/dL (12.0-15.5)
[2017-07-16 08:06] LABS: PHOSPHORUS 3.2 mg/dL (2.6-4.7)
[2017-07-16] MEDS: IPRATRPIUM/ALBUTEROL 0.5/2.5MG 3 ML NEBU. NEB ×4 (08:44→19:33)
[2017-07-16] MEDS: BUDESONIDE 0.5 MG/2 ML NEBU. NEB ×2 (08:44→19:33)
[2017-07-16 09:09] LABS: BASE EXCESS ABG -4 mmol/L (-3-3); HCO3 ABG 22 mmol/L (21-28); PCO2 ABG 43 mmHg (35-46); PH ABG 7.33 (7.35-7.45); PO2 ABG 82 mmHg (65-108); SAT O2 ABG 94 % (92-99)
[2017-07-16 09:12] LABS: FIO2 ABG 40
[2017-07-16 09:18] LABS: IMMEDIATE SPIN CROSSMATCH 1
[2017-07-16] MEDS ORDERED: IV NORMAL SALINE 1000ML BAG 1,000 ML IV (09:44)
[2017-07-16] MEDS ORDERED: 0.9 % SODIUM CHLORIDE 10 ML DISP.SYRIN. IV ×2 (09:45)
[2017-07-16] MEDS ORDERED: DIALYSIS PATIENT. MC (09:45)
[2017-07-16] MEDS: POTASSIUM CHLORIDE 20MEQ 50 ML IV ×2 (12:34→13:47)
[2017-07-16] MEDS: MIDAZOLAM 100MG/100ML PREMIX 100 ML IV ×2 (12:36→21:40)
[2017-07-16] MEDS: MICAFUNGIN 100 MG in IV NORMAL SALINE 100ML 100 ML IV (14:30)
[2017-07-16] MEDS: FERROUS SULFATE ORAL 300 MG/5 ML SOLUTION. PO (14:30)
[2017-07-16] MEDS: DIGOXIN 125 MCG TABLET. PEG (14:31)
[2017-07-16] MEDS: valACYclovir 500 MG TABLET. PO (14:31)
[2017-07-16] MEDS: LEVOTHYROXINE 100 MCG TABLET PO (14:31)
[2017-07-16] MEDS: MULTIVITAMINS,THERAPEUTIC 5 ML ORAL LIQUID. FT (14:32)
[2017-07-16] MEDS: HALOPERIDOL 5 MG TABLET. PO (14:32)
[2017-07-16] MEDS: ASPIRIN CHEWABLE 81 MG TABLET. PO (14:32)
[2017-07-16] MEDS: PIOGLITAZONE 15 MG TABLET. PO (14:32)
[2017-07-16] MEDS: PANTOPRAZOLE IV PUSH 40 MG VIAL. IVP (14:32)
[2017-07-16] MEDS: CEFEPIME HCL IV Push 1 GM VIAL. IVP (14:32)
[2017-07-16] MEDS: NYSTATIN TOPICAL POWDER 15GM BOTTLE. TP ×2 (14:33→21:15)
[2017-07-16] MEDS: NYSTATIN 100,000 UNIT/GM TOPICAL CREAM 15GM TUBE. TP ×2 (14:33→21:16)
[2017-07-16 14:39] LABS: POC GLUCOSE 257 mg/dL (70-99)
[2017-07-16] MEDS: CHLORHEXIDINE 0.12% 15 ML MOUTHWASH. MM ×2 (14:47→21:15)
[2017-07-16] MEDS: IV NORMAL SALINE 1000ML BAG 1,000 ML IV (16:55)
[2017-07-16] MEDS: VASOPRESSIN 40 UNIT in IV NORMAL SALINE 100ML 100 ML IV (18:05)
[2017-07-16 18:28] LABS: POC GLUCOSE 273 mg/dL (70-99)
[2017-07-16] MEDS: ATORVASTATIN CALCIUM 40 MG TABLET. PO (21:15)
[2017-07-16] MEDS: INSULIN DETEMIR 300 UNITS/3 ML INSULN.PEN. SQ (21:18)
[2017-07-16 21:38] LABS: POC GLUCOSE 227 mg/dL (70-99)
[2017-07-17 00:44] LABS: POC GLUCOSE 184 mg/dL (70-99)
[2017-07-17] MEDS: ALBUMIN HUMAN 25% 100 ML IV ×4 (05:55→16:42)
[2017-07-17] MEDS: HYDROCORTISONE SOD SUCC/PF 100 MG/2 ML VIAL. IV (05:56)
[2017-07-17] MEDS: INSULIN ASPART 300 UNITS/3 ML INSULN.PEN SQ ×8 (05:57→17:56)
[2017-07-17 06:23] LABS: BASO # 0.1 x10^3/uL (0.0-0.2); BASO % 0 % (0-3); EOS # 0.1 x10^3/uL (0.0-0.7); EOS % 0 % (0-3); HEMATOCRIT 23.1 % (36.0-47.0); HEMOGLOBIN 7.3 g/dL (12.0-15.5); LYMPH # 2.8 x10^3/uL (1.0-4.8); LYMPH % 9 % (24-48); MEAN CORPUSCULAR HEMOGLOBIN 30 pg (25-35); MEAN CORPUSCULAR HGB CONC 32 g/dL (31-37); MEAN CORPUSCULAR VOLUME 94 fL (79-100); MONO # 3.3 x10^3/uL (0.0-1.1); MONO % 10 % (0-9); NEUT # 25.2 x10^3uL (1.8-7.7); NEUT % 80 % (31-73); PLATELET COUNT 142 x10^3/uL (140-400); RED BLOOD COUNT 2.46 x10^6/uL (3.50-5.40); RED CELL DISTRIBUTION WIDTH 16.7 % (11.5-14.5); WHITE BLOOD COUNT 31.5 x10^3/uL (4.0-11.0)
[2017-07-17 06:34] LABS: POC GLUCOSE 189 mg/dL (70-99)
[2017-07-17 06:45] LABS: ANION GAP 10 (6-14); BLOOD UREA NITROGEN 81 mg/dL (7-20); CALCIUM 8.9 mg/dL (8.5-10.1); CARBON DIOXIDE 27 mmol/L (21-32); CHLORIDE 100 mmol/L (98-107); CREATININE 1.4 mg/dL (0.6-1.0); GFR 37.6; GLUCOSE 207 mg/dL (70-99); SODIUM 137 mmol/L (136-145)
[2017-07-17 06:51] LABS: ADD MAN DIFF? YES
[2017-07-17] MEDS: BUDESONIDE 0.5 MG/2 ML NEBU. NEB ×2 (07:45→19:19)
[2017-07-17] MEDS: IPRATRPIUM/ALBUTEROL 0.5/2.5MG 3 ML NEBU. NEB ×4 (07:45→19:19)
[2017-07-17 09:25] LABS: % BANDS 7 % (0-9); % EOS 2 % (0-5); % LYMPHS 16 % (24-48); % MONOS 9 % (0-10); % SEGS 66 % (35-66); NUCLEATED RBC 51
[2017-07-17] MEDS: MIDAZOLAM 100MG/100ML PREMIX 100 ML IV ×2 (09:25→19:57)
[2017-07-17 09:26] LABS: ANISOCYTOSIS SLIGHT; PLT ESTIMATE ADEQUATE (ADEQUATE)
[2017-07-17] MEDS: CHLORHEXIDINE 0.12% 15 ML MOUTHWASH. MM ×2 (10:14→21:39)
[2017-07-17] MEDS: CEFEPIME HCL IV Push 1 GM VIAL. IVP (10:14)
[2017-07-17] MEDS: MULTIVITAMINS,THERAPEUTIC 5 ML ORAL LIQUID. FT (10:14)
[2017-07-17] MEDS: LEVOTHYROXINE 100 MCG TABLET PO (10:15)
[2017-07-17] MEDS: PANTOPRAZOLE IV PUSH 40 MG VIAL. IVP (10:15)
[2017-07-17] MEDS: HALOPERIDOL 5 MG TABLET. PO (10:15)
[2017-07-17] MEDS: POTASSIUM CHLORIDE 20MEQ 50 ML IV ×2 (10:15→12:00)
[2017-07-17] MEDS: FERROUS SULFATE ORAL 300 MG/5 ML SOLUTION. PO (10:16)
[2017-07-17] MEDS: valACYclovir 500 MG TABLET. PO (10:16)
[2017-07-17] MEDS: ASPIRIN CHEWABLE 81 MG TABLET. PO (10:16)
[2017-07-17] MEDS: PIOGLITAZONE 15 MG TABLET. PO (10:16)
[2017-07-17] MEDS: NYSTATIN TOPICAL POWDER 15GM BOTTLE. TP ×2 (10:17→21:38)
[2017-07-17] MEDS: NYSTATIN 100,000 UNIT/GM TOPICAL CREAM 15GM TUBE. TP ×2 (10:17→21:38)
[2017-07-17] MEDS: VASOPRESSIN 40 UNIT in IV NORMAL SALINE 100ML 100 ML IV (10:39)
[2017-07-17] MEDS: MICAFUNGIN 100 MG in IV NORMAL SALINE 100ML 100 ML IV (12:47)
[2017-07-17 13:43] LABS: POC GLUCOSE 242 mg/dL (70-99)
[2017-07-17] MEDS ORDERED: IV NORMAL SALINE 1000ML BAG 1,000 ML IV ×2 (14:19)
[2017-07-17] MEDS ORDERED: DIALYSIS PATIENT. MC ×2 (14:30)
[2017-07-17] MEDS ORDERED: ALBUMIN HUMAN 25% 200 ML IV (14:30)
[2017-07-17] MEDS: IV NORMAL SALINE 1000ML BAG 1,000 ML IV ×2 (17:52→20:30)
[2017-07-17 18:00] LABS: POC GLUCOSE 160 mg/dL (70-99)
[2017-07-17] MEDS: INSULIN DETEMIR 300 UNITS/3 ML INSULN.PEN. SQ (21:00)
[2017-07-17 21:10] LABS: C DIFF BY PCR Negative (Negative)
[2017-07-17 21:17] LABS: INR 1.4 (0.8-1.1); PARTIAL THROMBOPLASTIN TIME 29 SEC (24-38); PROTHROMBIN TIME PATIENT 16.1 SEC (11.7-14.0)
[2017-07-17] MEDS: ATORVASTATIN CALCIUM 40 MG TABLET. PO (21:37)
[2017-07-18] MEDS: INSULIN ASPART 300 UNITS/3 ML INSULN.PEN SQ ×8 (00:40→18:00)
[2017-07-18] MEDS: ALBUMIN HUMAN 25% 100 ML IV ×4 (00:43→17:03)
[2017-07-18 00:53] LABS: POC GLUCOSE 183 mg/dL (70-99)
[2017-07-18] MEDS: HYDROCORTISONE SOD SUCC/PF 100 MG/2 ML VIAL. IV (05:26)
[2017-07-18 05:41] LABS: POC GLUCOSE 185 mg/dL (70-99)
[2017-07-18] MEDS: BUDESONIDE 0.5 MG/2 ML NEBU. NEB ×2 (07:03→19:18)
[2017-07-18] MEDS: IPRATRPIUM/ALBUTEROL 0.5/2.5MG 3 ML NEBU. NEB ×4 (07:03→19:18)
[2017-07-18] MEDS: MIDAZOLAM 100MG/100ML PREMIX 100 ML IV ×2 (07:07→17:34)
[2017-07-18] MEDS: IV RINGERS,LACTATED 1000ML 1,000 ML IV (07:10)
[2017-07-18] MEDS ORDERED: HYDROmorphone 2 MG/ML VIAL IV (07:15)
[2017-07-18] MEDS ORDERED: MORPHINE SULFATE 2 MG/ML DISP.SYRIN. IV (07:15)
[2017-07-18] MEDS ORDERED: LIDOCAINE 1% PF 2 ML VIAL. ID (07:15)
[2017-07-18] MEDS ORDERED: PROCHLORPERAZINE 10 MG/2 ML VIAL. IV (07:15)
[2017-07-18] MEDS ORDERED: ONDANSETRON PF 4 MG/2 ML VIAL. IV (07:15)
[2017-07-18] MEDS ORDERED: fentaNYL PF VIAL 100 MCG/2 ML VIAL IV ×2 (07:15)
[2017-07-18] MEDS: PIOGLITAZONE 15 MG TABLET. PO (10:09)
[2017-07-18] MEDS: FERROUS SULFATE ORAL 300 MG/5 ML SOLUTION. PO (10:09)
[2017-07-18] MEDS: valACYclovir 500 MG TABLET. PO (10:09)
[2017-07-18] MEDS: MULTIVITAMINS,THERAPEUTIC 5 ML ORAL LIQUID. FT (10:09)
[2017-07-18] MEDS: LEVOTHYROXINE 100 MCG TABLET PO (10:09)
[2017-07-18] MEDS: DIGOXIN 125 MCG TABLET. PEG (10:10)
[2017-07-18] MEDS: CHLORHEXIDINE 0.12% 15 ML MOUTHWASH. MM ×2 (10:10→21:06)
[2017-07-18] MEDS: HALOPERIDOL 5 MG TABLET. PO (10:10)
[2017-07-18] MEDS: CEFEPIME HCL IV Push 1 GM VIAL. IVP (10:10)
[2017-07-18] MEDS: ASPIRIN CHEWABLE 81 MG TABLET. PO (10:10)
[2017-07-18] MEDS: NYSTATIN TOPICAL POWDER 15GM BOTTLE. TP ×2 (10:11→21:07)
[2017-07-18] MEDS: PANTOPRAZOLE IV PUSH 40 MG VIAL. IVP (10:11)
[2017-07-18] MEDS: NYSTATIN 100,000 UNIT/GM TOPICAL CREAM 15GM TUBE. TP ×2 (10:11→21:07)
[2017-07-18] MEDS: MICAFUNGIN 100 MG in IV NORMAL SALINE 100ML 100 ML IV (11:52)
[2017-07-18 11:59] LABS: POC GLUCOSE 211 mg/dL (70-99)
[2017-07-18] MEDS ORDERED: ROCURONIUM 50 MG/5 ML VIAL. ×2 (13:19→14:09)
[2017-07-18] MEDS ORDERED: IV NORMAL SALINE 1000ML BAG 1,000 ML IV (14:40)
[2017-07-18] MEDS ORDERED: ALBUMIN HUMAN 25% 200 ML IV (14:45)
[2017-07-18] MEDS ORDERED: ACETAMINOPHEN 500 MG TABLET PO (14:45)
[2017-07-18] MEDS ORDERED: DIALYSIS PATIENT. MC ×2 (14:45)
[2017-07-18] MEDS ORDERED: diphenhydrAMINE 50 MG/ML VIAL IV (14:45)
[2017-07-18 20:27] LABS: POC GLUCOSE 129 mg/dL (70-99)
[2017-07-18] MEDS: INSULIN DETEMIR 300 UNITS/3 ML INSULN.PEN. SQ (21:00)
[2017-07-18] MEDS: ATORVASTATIN CALCIUM 40 MG TABLET. PO (21:05)
[2017-07-19 03:04] LABS: POC GLUCOSE 143 mg/dL (70-99)
[2017-07-19] MEDS: ALBUMIN HUMAN 25% 100 ML IV ×4 (03:10→21:08)
[2017-07-19] MEDS: INSULIN ASPART 300 UNITS/3 ML INSULN.PEN SQ ×6 (06:00→18:00)
[2017-07-19] MEDS: HYDROCORTISONE SOD SUCC/PF 100 MG/2 ML VIAL. IV ×2 (06:00→16:18)
[2017-07-19] MEDS: BUDESONIDE 0.5 MG/2 ML NEBU. NEB ×3 (08:00→20:07)
[2017-07-19] MEDS: IPRATRPIUM/ALBUTEROL 0.5/2.5MG 3 ML NEBU. NEB ×4 (08:00→20:07)
[2017-07-19 10:41] LABS: POC GLUCOSE 140 mg/dL (70-99)
[2017-07-19] MEDS ORDERED: 0.9 % SODIUM CHLORIDE 10 ML DISP.SYRIN. IV ×2 (10:45)
[2017-07-19] MEDS ORDERED: DIALYSIS PATIENT. MC ×2 (11:00)
[2017-07-19] MEDS: MIDAZOLAM 100MG/100ML PREMIX 100 ML IV (14:15)
[2017-07-19] MEDS ORDERED: MIDAZOLAM 100 MG/100 ML IV (14:50)
[2017-07-19] MEDS: IV NORMAL SALINE 1000ML BAG 1,000 ML IV (16:00)
[2017-07-19] MEDS: LEVOTHYROXINE 100 MCG TABLET PO (16:17)
[2017-07-19] MEDS: FERROUS SULFATE ORAL 300 MG/5 ML SOLUTION. PO (16:17)
[2017-07-19] MEDS: PANTOPRAZOLE IV PUSH 40 MG VIAL. IVP (16:17)
[2017-07-19] MEDS: valACYclovir 500 MG TABLET. PO (16:17)
[2017-07-19] MEDS: ASPIRIN CHEWABLE 81 MG TABLET. PO (16:17)
[2017-07-19] MEDS: HALOPERIDOL 5 MG TABLET. PO (16:18)
[2017-07-19] MEDS: MULTIVITAMINS,THERAPEUTIC 5 ML ORAL LIQUID. FT (16:18)
[2017-07-19] MEDS: PIOGLITAZONE 15 MG TABLET. PO (16:18)
[2017-07-19] MEDS: MICAFUNGIN 100 MG in IV NORMAL SALINE 100ML 100 ML IV (16:18)
[2017-07-19] MEDS: CEFEPIME HCL IV Push 1 GM VIAL. IVP (16:19)
[2017-07-19] MEDS: CHLORHEXIDINE 0.12% 15 ML MOUTHWASH. MM ×2 (16:19→21:00)
[2017-07-19] MEDS: NYSTATIN TOPICAL POWDER 15GM BOTTLE. TP ×2 (16:40→21:09)
[2017-07-19] MEDS: NYSTATIN 100,000 UNIT/GM TOPICAL CREAM 15GM TUBE. TP ×2 (16:40→21:09)
[2017-07-19] MEDS: IV NORMAL SALINE 500ML BAG 500 ML IV (19:00)
[2017-07-19] MEDS: IV NORMAL SALINE 250ML 250 ML IV (19:00)
[2017-07-19 19:16] LABS: POC GLUCOSE 179 mg/dL (70-99)
[2017-07-19] MEDS: ATORVASTATIN CALCIUM 40 MG TABLET. PO (21:08)
[2017-07-19] MEDS: DARBEPOETIN ALFA 100 MCG/0.5 ML DISP.SYRIN. SQ (21:09)
[2017-07-20] MEDS: ALBUMIN HUMAN 25% 100 ML IV ×2 (00:27→05:21)
[2017-07-20] MEDS: MIDAZOLAM 100MG/100ML PREMIX 100 ML IV ×2 (00:31→14:01)
[2017-07-20 03:21] LABS: COPPER LEVEL 79 ug/dL (72-166)
[2017-07-20 05:25] LABS: POC GLUCOSE 185 mg/dL (70-99)
[2017-07-20 05:53] LABS: POC GLUCOSE 171 mg/dL (70-99)
[2017-07-20] MEDS: INSULIN ASPART 300 UNITS/3 ML INSULN.PEN SQ ×4 (06:00→18:00)
[2017-07-20 06:26] LABS: ALBUMIN 4.7 g/dL (3.4-5.0); ANION GAP 9 (6-14); BLOOD UREA NITROGEN 40 mg/dL (7-20); CALCIUM 8.8 mg/dL (8.5-10.1); CARBON DIOXIDE 27 mmol/L (21-32); CHLORIDE 98 mmol/L (98-107); GFR 55.5; GLUCOSE 181 mg/dL (70-99); PHOSPHORUS 2.8 mg/dL (2.6-4.7); SODIUM 134 mmol/L (136-145)
[2017-07-20] MEDS: IV RINGERS,LACTATED 1000ML 1,000 ML IV (07:00)
[2017-07-20] MEDS: LEVOTHYROXINE 100 MCG TABLET PO (07:00)
[2017-07-20] MEDS ORDERED: HYDROmorphone 2 MG/ML VIAL IV (07:00)
[2017-07-20] MEDS ORDERED: fentaNYL PF VIAL 100 MCG/2 ML VIAL IV ×2 (07:00)
[2017-07-20] MEDS ORDERED: LIDOCAINE 1% PF 2 ML VIAL. ID (07:00)
[2017-07-20] MEDS ORDERED: PROCHLORPERAZINE 10 MG/2 ML VIAL. IV (07:00)
[2017-07-20] MEDS ORDERED: ONDANSETRON PF 4 MG/2 ML VIAL. IV (07:00)
[2017-07-20] MEDS ORDERED: MORPHINE SULFATE 2 MG/ML DISP.SYRIN. IV (07:00)
[2017-07-20] MEDS: IPRATRPIUM/ALBUTEROL 0.5/2.5MG 3 ML NEBU. NEB ×3 (07:18→16:01)
[2017-07-20] MEDS: BUDESONIDE 0.5 MG/2 ML NEBU. NEB (07:19)
[2017-07-20 07:41] LABS: BASE EXCESS ABG -3 mmol/L (-3-3); HCO3 ABG 22 mmol/L (21-28); PCO2 ABG 36 mmHg (35-46); PO2 ABG 76 mmHg (65-108); SAT O2 ABG 94 % (92-99)
[2017-07-20] MEDS ORDERED: HEPARIN for IV BOLUS 10,000 UNIT/10 ML VIAL. (07:55)
[2017-07-20] MEDS ORDERED: LIDOCAINE 1%/EPI 1:100,000 20 ML VIAL. (07:55)
[2017-07-20] MEDS ORDERED: VANCOMYCIN 1GM IVPB FOR OMNI 250 ML (08:00)
[2017-07-20] MEDS: ASPIRIN CHEWABLE 81 MG TABLET. PO (08:00)
[2017-07-20] MEDS: MULTIVITAMINS,THERAPEUTIC 5 ML ORAL LIQUID. FT (08:21)
[2017-07-20] MEDS: PIOGLITAZONE 15 MG TABLET. PO (08:22)
[2017-07-20] MEDS: FERROUS SULFATE ORAL 300 MG/5 ML SOLUTION. PO (08:22)
[2017-07-20] MEDS: HALOPERIDOL 5 MG TABLET. PO (08:22)
[2017-07-20] MEDS: valACYclovir 500 MG TABLET. PO (08:22)
[2017-07-20] MEDS: LIDOCAINE 1%/EPI 1:100,000 20 ML VIAL. INJ (08:45)
[2017-07-20] MEDS: DIGOXIN 125 MCG TABLET. PEG (09:00)
[2017-07-20] MEDS: VANCOMYCIN 1GM IVPB FOR OMNI 250 ML IV (09:03)
[2017-07-20] MEDS: CHLORHEXIDINE 0.12% 15 ML MOUTHWASH. MM (10:07)
[2017-07-20] MEDS: PANTOPRAZOLE IV PUSH 40 MG VIAL. IVP (11:55)
[2017-07-20] MEDS: NYSTATIN TOPICAL POWDER 15GM BOTTLE. TP (12:02)
[2017-07-20] MEDS: NYSTATIN 100,000 UNIT/GM TOPICAL CREAM 15GM TUBE. TP (12:02)
[2017-07-20 13:25] LABS: MEAN CORPUSCULAR HEMOGLOBIN 32 pg (25-35); MEAN CORPUSCULAR HGB CONC 29 g/dL (31-37); MEAN CORPUSCULAR VOLUME 107 fL (79-100); PLATELET COUNT 124 x10^3/uL (140-400); RED BLOOD COUNT 1.29 x10^6/uL (3.50-5.40); RED CELL DISTRIBUTION WIDTH 19.2 % (11.5-14.5); WHITE BLOOD COUNT 19.6 x10^3/uL (4.0-11.0)
[2017-07-20 13:26] LABS: HEMATOCRIT 13.8 % (36.0-47.0)
[2017-07-20 13:55] LABS: IMMEDIATE SPIN CROSSMATCH 1
[2017-07-20] MEDS: PHENYLEPHRINE INJ 80 MG in IV NORMAL SALINE 250ML 250 ML IV (14:02)
[2017-07-20] MEDS: VASOPRESSIN 40 UNIT in IV NORMAL SALINE 100ML 100 ML IV (14:09)
[2017-07-20 14:33] LABS: ANION GAP 13 (6-14); BLOOD UREA NITROGEN 41 mg/dL (7-20); CALCIUM 7.7 mg/dL (8.5-10.1); CARBON DIOXIDE 22 mmol/L (21-32); CHLORIDE 98 mmol/L (98-107); CREATININE 1.2 mg/dL (0.6-1.0); GFR 44.9; GLUCOSE 308 mg/dL (70-99); POTASSIUM 3.6 mmol/L (3.5-5.1); SODIUM 133 mmol/L (136-145)
[2017-07-20 14:34] LABS: IONIZED CALCIUM 1.07 mmol/L (1.13-1.32)
[2017-07-20 14:37] LABS: FIBRINOGEN 167 mg/dL (200-440); INR 2.2 (0.8-1.1); PROTHROMBIN TIME PATIENT 22.9 SEC (11.7-14.0)
[2017-07-20 14:52] LABS: PARTIAL THROMBOPLASTIN TIME > 150 SEC (24-38)
[2017-07-20 14:53] LABS: UPCR RATIO 1
[2017-07-20] MEDS: MICAFUNGIN 100 MG in IV NORMAL SALINE 100ML 100 ML IV (15:00)
[2017-07-20] MEDS: CEFEPIME HCL IV Push 1 GM VIAL. IVP (15:00)
[2017-07-20 15:07] LABS: HEMATOCRIT 25.6 % (36.0-47.0); HEMOGLOBIN 8.2 g/dL (12.0-15.5); MEAN CORPUSCULAR HEMOGLOBIN 31 pg (25-35); MEAN CORPUSCULAR HGB CONC 32 g/dL (31-37); MEAN CORPUSCULAR VOLUME 96 fL (79-100); PLATELET COUNT 143 x10^3/uL (140-400); RED BLOOD COUNT 2.66 x10^6/uL (3.50-5.40); RED CELL DISTRIBUTION WIDTH 15.4 % (11.5-14.5); WHITE BLOOD COUNT 21.6 x10^3/uL (4.0-11.0)
[2017-07-20 15:37] LABS: IMMEDIATE SPIN CROSSMATCH 1 8
[2017-07-20 15:44] LABS: HEMOGLOBIN 8.3 g/dL (12.0-15.5); MEAN CORPUSCULAR HEMOGLOBIN 31 pg (25-35); MEAN CORPUSCULAR HGB CONC 32 g/dL (31-37); MEAN CORPUSCULAR VOLUME 96 fL (79-100); PLATELET COUNT 178 x10^3/uL (140-400); RED CELL DISTRIBUTION WIDTH 15.5 % (11.5-14.5); WHITE BLOOD COUNT 24.3 x10^3/uL (4.0-11.0)
[2017-07-20] MEDS: IV NORMAL SALINE 1000ML BAG 1,000 ML IV (16:00)
[2017-07-20] MEDS: MORPHINE SULFATE/PF 30 ML IV (18:42)
== END 2017-07-20 21:08 | disposition expired | DRG 4 ==
LOC: 2 NORTH 23:30 → 1 WEST ICU 06-21 09:42 → ER 22:30 → 1 WEST ICU 06-13 05:41 → 6 SOUTH 06-19 23:05
PROC: 0B113F4 Bypass Trachea to Cutaneous with Tracheostomy Device, Percutaneous Approach (ICD-10-PCS; 2017-07-18 13:00)
PROC: 0B9J8ZX Drainage of Left Lower Lung Lobe, Via Natural or Artificial Opening Endoscopic, Diagnostic (ICD-10-PCS; principal; 2017-07-18 13:29)
PROC: 0B9F8ZX Drainage of Right Lower Lung Lobe, Via Natural or Artificial Opening Endoscopic, Diagnostic (ICD-10-PCS; 2017-07-18 13:29)
PROC: 5A1D70Z Performance of Urinary Filtration, Intermittent, Less than 6 Hours Per Day (ICD-10-PCS; 2017-07-18 13:29)
PROC: 0BH17EZ Insertion of Endotracheal Airway into Trachea, Via Natural or Artificial Opening (ICD-10-PCS; 2017-07-18 13:29)
PROC: 5A1955Z Respiratory Ventilation, Greater than 96 Consecutive Hours (ICD-10-PCS; 2017-07-18 13:29)
PROC: 5A1D70Z Performance of Urinary Filtration, Intermittent, Less than 6 Hours Per Day (ICD-10-PCS; 2017-07-18 13:29)
PROC: 0JH63XZ Insertion of Tunneled Vascular Access Device into Chest Subcutaneous Tissue and Fascia, Percutaneous Approach (ICD-10-PCS; 2017-07-18 13:29)
PROC: 02H633Z Insertion of Infusion Device into Right Atrium, Percutaneous Approach (ICD-10-PCS; 2017-07-18 13:29)
PROC: B2141ZZ Fluoroscopy of Right Heart using Low Osmolar Contrast (ICD-10-PCS; 2017-07-18 13:29)
PROC: 02HV33Z Insertion of Infusion Device into Superior Vena Cava, Percutaneous Approach (ICD-10-PCS; 2017-07-18 13:29)
PROC: B5181ZA Fluoroscopy of Superior Vena Cava using Low Osmolar Contrast, Guidance (ICD-10-PCS; 2017-07-18 13:29)
PROC: B548ZZA Ultrasonography of Superior Vena Cava, Guidance (ICD-10-PCS; 2017-07-18 13:29)
PROC: 0DJ08ZZ Inspection of Upper Intestinal Tract, Via Natural or Artificial Opening Endoscopic (ICD-10-PCS; 2017-07-18 13:29)
PROC: 5A1D70Z Performance of Urinary Filtration, Intermittent, Less than 6 Hours Per Day (ICD-10-PCS; 2017-07-18 13:29)
PROC: 5A1D70Z Performance of Urinary Filtration, Intermittent, Less than 6 Hours Per Day (ICD-10-PCS; 2017-07-18 13:29)
PROC: 5A1D70Z Performance of Urinary Filtration, Intermittent, Less than 6 Hours Per Day (ICD-10-PCS; 2017-07-18 13:29)
PROC: 5A09557 Assistance with Respiratory Ventilation, Greater than 96 Consecutive Hours, Continuous Positive Airway Pressure (ICD-10-PCS; 2017-07-18 13:29)
PROC: 30233L1 Transfusion of Nonautologous Fresh Plasma into Peripheral Vein, Percutaneous Approach (ICD-10-PCS; 2017-07-18 13:29)
PROC: 30233N1 Transfusion of Nonautologous Red Blood Cells into Peripheral Vein, Percutaneous Approach (ICD-10-PCS; 2017-07-18 13:29)
PROC: 30233R1 Transfusion of Nonautologous Platelets into Peripheral Vein, Percutaneous Approach (ICD-10-PCS; 2017-07-18 13:29)
PROC: 30233K1 Transfusion of Nonautologous Frozen Plasma into Peripheral Vein, Percutaneous Approach (ICD-10-PCS; 2017-07-18 13:29)
DX: A41.9 Sepsis, unspecified organism (principal); N17.0 Acute kidney failure with tubular necrosis; R65.21 Severe sepsis with septic shock; E43 Unspecified severe protein-calorie malnutrition; G92 Toxic encephalopathy; I50.33 Acute on chronic diastolic (congestive) heart failure; J96.21 Acute and chronic respiratory failure with hypoxia; I48.2 Chronic atrial fibrillation; R13.12 Dysphagia, oropharyngeal phase; J96.22 Acute and chronic respiratory failure with hypercapnia; E87.1 Hypo-osmolality and hyponatremia; L03.115 Cellulitis of right lower limb; E66.2 Morbid (severe) obesity with alveolar hypoventilation; Z68.44 Body mass index [BMI] 60.0-69.9, adult; F20.0 Paranoid schizophrenia; J44.0 Chronic obstructive pulmonary disease with (acute) lower respiratory infection; L03.116 Cellulitis of left lower limb; I13.0 Hypertensive heart and chronic kidney disease with heart failure and stage 1 through stage 4 chronic kidney disease, or unspecified chronic kidney disease; E11.22 Type 2 diabetes mellitus with diabetic chronic kidney disease; B37.2 Candidiasis of skin and nail; Y92.009 Unspecified place in unspecified non-institutional (private) residence as the place of occurrence of the external cause; A60.00 Herpesviral infection of urogenital system, unspecified; D50.9 Iron deficiency anemia, unspecified; E03.9 Hypothyroidism, unspecified; E78.00 Pure hypercholesterolemia, unspecified; E78.5 Hyperlipidemia, unspecified; F32.9 Major depressive disorder, single episode, unspecified; G47.33 Obstructive sleep apnea (adult) (pediatric); G89.29 Other chronic pain; I12.9 Hypertensive chronic kidney disease with stage 1 through stage 4 chronic kidney disease, or unspecified chronic kidney disease; I25.5 Ischemic cardiomyopathy; K21.9 Gastro-esophageal reflux disease without esophagitis; K29.70 Gastritis, unspecified, without bleeding; K59.00 Constipation, unspecified; N20.0 Calculus of kidney; Z79.4 Long term (current) use of insulin; Z82.49 Family history of ischemic heart disease and other diseases of the circulatory system; Z85.038 Personal history of other malignant neoplasm of large intestine; Z87.440 Personal history of urinary (tract) infections; Z87.891 Personal history of nicotine dependence; Z88.0 Allergy status to penicillin; Z90.81 Acquired absence of spleen; Z91.19 Patient's noncompliance with other medical treatment and regimen; Z99.2 Dependence on renal dialysis; Z99.81 Dependence on supplemental oxygen; F10.20 Alcohol dependence, uncomplicated; H26.9 Unspecified cataract; K57.90 Diverticulosis of intestine, part unspecified, without perforation or abscess without bleeding; M19.90 Unspecified osteoarthritis, unspecified site; Z90.49 Acquired absence of other specified parts of digestive tract; Z98.51 Tubal ligation status; Z51.5 Encounter for palliative care; N18.3 Chronic kidney disease, stage 3 (moderate)
CPT/HCPCS: 31622; 36415; 36556; 36569; 36581; 36600; 70450; 71010; 71045; 71250; 74018; 74176; 76641; 76937; 77001; 80048; 80053; 80069; 80076; 80307; 81001; 82040; 82140; 82306; 82310; 82525; 82533; 82550; 82553; 82565; 82570; 82607; 82805; 82962; 83540; 83550; 83605; 83690; 83735; 83880; 84100; 84145; 84156; 84300; 84439; 84443; 84484; 85007; 85025; 85027; 85384; 85610; 85730; 86705; 86706; 86850; 86900; 86901; 86920; 86927; 87015; 87040; 87070; 87086; 87102; 87116; 87205; 87324; 87340; 87641; 87804; 87804-59; 88112; 93005; 93308; 94002; 94003; 94640; 94660; 94760; 95816; 97110-GO; 97110-GP; 97162-GP; 97167-GO; 97530-GP; 99152; 99153; 99285; C1750; C1751; C1769; C1892; C9113; J0692; J0878; J0881; J1160; J1265; J1630; J1650; J1720; J1756; J1815; J1940; J1956; J2020; J2060; J2185; J2248; J2250; J2270; J3010; J3370; J3480; J3490; J7030; J7040; J7050; J7060; J7120; J7613; J7620; J7626; P9016; P9017; P9035; P9045; P9046